=== PATIENT | female | born 1965 | race Caucasian/White ===

== ENCOUNTER 2020-01-06 02:57 | Outpatient (CLI) | payer MEDICARE, MEDICAID, SELFPAY ==
[2020-01-06 08:52] LABS: Abs Immature Grans 0.01 k/cumm (0.0-0.09); Absolute Basophil Count 0.04 k/cumm (0.0-0.2); Absolute Eosinophil Count 0.14 k/cumm (0.0-0.7); Absolute Lymphocyte Count 1.87 k/cumm (1.2-3.4); Absolute Monocyte Count 0.82 k/cumm (0.11-0.7); Absolute Neutrophil Count 2.51 k/cumm (1.2-6.7); Basophils % 0.7; Eosinophils % 2.6; HCT 34.3 % (36.0-46.0); HGB 11.6 g/dL (12.0-15.5); Immature Grans % 0.2 %; Lymphocytes % 34.7; Mean Corp. HGB Concentration 33.8 g/dL (32.0-36.0); Mean Corpuscular Hemoglobin 33.4 pg (27.0-33.0); Mean Corpuscular Volume 98.8 fL (80-95); Mean Platelet Volume 9.7 fL (8.0-11.0); Monocytes % 15.2; Neutrophils % 46.6; Platelet Count 133 x1000/uL (130-400); RBC 3.47 m/cumm (4.00-5.20); RBC Distribution Width 16.6 % (11.7-14.6); White Blood Cell Count 5.39 k/cumm (4.4-10.8)
[2020-01-06 09:13] LABS: ALT 58 U/L (14-59); AST 90 U/L (15-37); Albumin 2.2 g/dL (3.4-5.0); Alkaline Phosphatase 222 U/L (46-116); Anion Gap 4.7 mmol/L (3-11); BUN 16 mg/dL (7-18); Bilirubin, Total 3.5 mg/dL (0.2-1.0); CO2 32.3 mmol/L (21.0-32.0); CREATININE 1.21 mg/dL (0.55-1.02); Calcium 8.2 mg/dL (8.5-10.1); Chloride 103 mmol/L (98-107); Estimated GFR 46.73 (mL/min/1.73m2); Glucose 93 mg/dL (74-106); NT-proBNP 1638 pg/mL (<300); Sodium 140 mmol/L (136-145); Total Protein 6.6 g/dL (6.4-8.2)
== END 2020-01-06 03:17 ==
PROVIDERS: Visit Provider Nurse Practitioner Adult Health
DX: I50.22 Chronic systolic (congestive) heart failure (principal)
CPT/HCPCS: 36415; 80053; 83880; 85025

== ENCOUNTER 2020-04-18 06:33 | Emergency (ER) | payer MEDICARE, MEDICAID, SELFPAY ==
[2020-04-18 06:38] VITALS: BP 118/79; PULSE 72; RESP 22; TEMP 36.7; O2SAT 100
--- NOTE | 2020-04-18 06:40 | W.ED.GENAD ---
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 Primary Care Provider: Ling Pepe ED Provider: Victoriano Aleman Home Meds and New Rx's Prescriptions: Continued famotidine 40 mg tablet 40 mg PO DAILY RF: 0 spironolactone 100 mg tablet 100 mg PO DAILY RF: 0 ciprofloxacin HCl 500 mg tablet 500 mg PO BID RF: 0 furosemide 80 mg tablet 40 mg PO DAILY RF: 0 nitroglycerin 0.4 mg Tablet, Sublingual 0.4 mg SUBLINGUAL Q5M PRNRF: 0 Xifaxan 550 mg tablet 550 mg PO BID RF: 0 lactulose 20 gram/30 mL Solution 20 g PO TID RF: 0 metoprolol tartrate 37.5 mg Tablet 37.5 mg PO BID RF: 0 Discharge Instructions Instructions: Against Medical Advice (ED) Additional Instructions: You have elected to leave AGAINST MEDICAL ADVICE. We recommended admission and monitoring of your labs. As we discussed, you should have repeat labs taken tomorrow and we are working to obtain follow-up for you with your primary care physician on Monday. Return at any time for reconsideration of admission. Return if you have profuse bleeding, mental status changes, somnolence, fever, or any other acute concerns. Continue your prescribed medications Medical Decision Making <Emil Costa DO - Last Filed: 04/18/20 07:45> 54-year-old female with a past medical history of viral hepatitis C, cardiomyopathy, chronic ascites, chronic hepatitis, COVID-19 back in February, and recent E. coli bacteremia with DIC medically managed at [facility], she left AGAINST MEDICAL ADVICE stating I just could not sleep well there less than 24 hours ago. She was prescribed Cipro for home use. Patient presents today stating that she feels fine and feels much better however the [facility] told me I needed to come to the ER on Monday and Monday to have my blood check to make sure things were better. Currently the patient denies any fever, chills, abdominal pain, nausea, vomiting, diarrhea, chest pain, shortness of breath, numbness, tingling, weakness. She states that she has filled her Cipro and will be starting to take it as directed. She denies any other complaints at this time. Physical exam is unremarkable aside for scleral icterus, mild ascites. Vital signs are stable, patient denies fever or chills. Exam is otherwise unremarkable. We will get an IV, get basic labs including liver function, INR, CBC with differential. I did review [facility] records, and at this time I cannot find a formal discharge summary from the physician. There are multiple progress notes but no conclusive summary. We will reach out to [facility] to see exactly what they were specifically requesting on these blood checks. We also did check for lab orders here and none have been placed by outside facilities for the patient. 7:15 AM Still waiting on [facility] call back. We did contact [place] where she was initially admitted and then subsequently transferred. We checked for lab orders there and it does not appear that currently there are any for the patient. 7:43 AM Still pending [facility] call back. Patient's labs are starting to return, hemoglobin yesterday was 8.1, today it is 8.4, platelets yesterday were 53, today they are 61. INR has improved from 1.9 yesterday to 1.7 today, PT has improved from 22.4 yesterday to 17.2 today, and PTT has improved from 59 yesterday to 42 today. Patient states that. Demonstrating a gradual improvement for her hematology studies. Patient will be signed out to my colleague Dr. Victoriano Aleman for reassessment after discussion with [facility], however with the patient remaining asymptomatic at this time, feeling very well, having no fever or tachycardia, with evidence of slow but steady improvement of her hematology levels, I do feel that she may be a candidate for discharge. This will depend on the discussion with [facility] though. <Victoriano Aleman MD - Last Filed: 04/18/20 08:27> Received signout from Dr. Costa. I was able to talk to Dr. Marino from hospitalist medicine at [facility]. They agree with my recommendation for the patient to be admitted with close surveillance of her labs. Barring her willingness to do this, they recommend daily labs and close follow-up. The patient declines my recommendation of admission, stating she would like to leave AGAINST MEDICAL ADVICE. I discussed the risks and benefits including sudden with both she and her with the nurse at the bedside as witness. I feel she does have capacity to make this decision, particularly with her as witness and at her bedside. We have recommended daily labs and I have asked care management to obtain her a follow-up on Monday. I feel it is likely they will return tomorrow or sooner. We discussed signs of worsening condition prior to their leaving AGAINST MEDICAL ADVICE. HPI <Emil Ronda Costa, - Last Filed: 04/18/20 07:45> General Date/Time Provider Initiated Documentation: 04/18/20 06:35. HPI Narrative: 54-year-old female with a past medical history of viral hepatitis C, chronic ascites, chronic hepatitis, COVID-19 back in February, and recent E. coli bacteremia with DIC medically managed at [facility], she left AGAINST MEDICAL ADVICE stating I just could not sleep well there less than 24 hours ago. She was prescribed Cipro for home use. Patient presents today stating that she feels fine and feels much better however the [facility] told me I needed to come to the ER on Monday and Monday to have my blood check to make sure things were better. Currently the patient denies any fever, chills, abdominal pain, nausea, vomiting, diarrhea, chest pain, shortness of breath, numbness, tingling, weakness. She states that she has filled her Cipro and will be starting to take it as directed. She denies any other complaints at this time. Related Data Home Medications Medication Instructions Recorded Confirmed Xifaxan 550 mg PO BID 04/18/20 04/18/20 ciprofloxacin HCl 500 mg PO BID 04/18/20 04/18/20 famotidine 40 mg PO DAILY 04/18/20 04/18/20 furosemide 40 mg PO DAILY 04/18/20 04/18/20 lactulose 20 g PO TID 04/18/20 04/18/20 metoprolol tartrate 37.5 mg PO BID 04/18/20 04/18/20 nitroglycerin 0.4 mg SUBLINGUAL Q5M PRN 04/18/20 04/18/20 spironolactone 100 mg PO DAILY 04/18/20 04/18/20 Allergies Allergy/AdvReac Type Severity Reaction Status Date / Time amphetamine aspartate Allergy Severe Facial Unverified 04/18/20 06:40 [From Adderall] Swelling, Blisters, Tongue Swelling, Rash, amphetamine sulfate Allergy Severe Facial Unverified 04/18/20 06:40 [From Adderall] Swelling, Blisters, Tongue Swelling, Rash, dextroamphetamine saccharate Allergy Severe Facial Unverified 04/18/20 06:40 [From Adderall] Swelling, Blisters, Tongue Swelling, Rash, dextroamphetamine sulfate Allergy Severe Facial Unverified 04/18/20 06:40 [From Adderall] Swelling, Blisters, Tongue Swelling, Rash, Penicillins Allergy Intermediate Hives, Unverified 04/18/20 06:40 Rash, Tongue Swelling codeine AdvReac Mild Constipatio Unverified 04/18/20 06:40 n Review of Systems <Emil Costa DO - Last Filed: 04/18/20 07:45> All systems reviewed & are unremarkable except as noted in HPI and below PFSH <Emil Costa DO - Last Filed: 04/18/20 07:45> Medical History Anxiety Attention deficit hyperactivity disorder, combined type Cholestasis of Chronic hepatitis C Irritable colon Renal failure syndrome Surgical History section x2 Family History Mother Hypertensive disorder, systemic arterial Father Hypertensive disorder, systemic arterial Social History Smoking/Tobacco Use Status: Current every day Alcohol Intake: never Drug use: Never Substance use type: does not use Do you feel safe at home: Yes Exam <Emil Costa DO - Last Filed: 04/18/20 07:45> Narrative Exam Narrative: 1.Const: Well-nourished, Well-developed, appearing stated age 2.Eyes: PERRL, no conjunctival injection, and symmetrical lids. Notable scleral icterus 3.ENT: Atraumatic external nose and ears. Moist MM. Neck: Symmetric, trachea midline, No thyromegaly. 4.CVS: +S1/S2, No murmurs or gallops. Peripheral pulses 2+ and equal in all extremities. Brisk capillary refill in all extremities. 5.RESP: Unlabored respiratory effort. Clear to auscultation bilaterally. No wheezes rales or rhonchi 6.GI: Soft, Nontender], No hepatosplenomegaly. No guarding or rebound. Notable ascites, nontender. 7.MSK: Normocephalic/Atraumatic, Extremities w/o deformity or ttp No cyanosis or clubbing, Normal movement of all extremities. No asterixis 8.Skin: Warm, Dry. No rashes or lesions. 9.Neuro: hand stonecutter II-XII grossly intact. Sensation grossly intact, no focal neurologic deficits. 10.Psych: (AAO) x3. Appropriate mood and affect Sign Out <Emil Costa DO - Last Filed: 04/18/20 07:45> Sign Out Data: Sign Out Comment: Left AMA from [facility] yesterday, DIC, E. coli bacteremia, on Cipro. Sent in today at [facility] recommendation for blood studies. CBC she seems to demonstrate improvement. Reevaluate after discussion with [facility] medicine team. Last updated by Emil Costa DO at 04/18/20 07:45
[2020-04-18 07:13] VITALS: RESP 18
[2020-04-18 07:13] LABS: Abs Immature Grans 0.05 10^3/uL (0.0-0.06); Absolute Basophil Count 0.08 10^3/uL (0.0-0.2); Absolute Eosinophil Count 0.32 10^3/uL (0.0-0.7); Absolute Lymphocyte Count 1.02 10^3/uL (1.2-3.4); Absolute Monocyte Count 1.14 10^3/uL (0.1-0.8); Absolute Neutrophil Count 3.48 10^3/uL (1.2-6.7); Basophils % 1.3; Eosinophils % 5.3; HCT 25.8 % (36.0-46.0); HGB 8.4 g/dL (11.2-15.7); Immature Grans % 0.8; Lymphocytes % 16.7; MCH 32.6 pg (27.0-33.0); MCHC 32.6 % (32.0-36.0); MPV 10.7 fL (8.0-11.0); Monocytes % 18.7; Neutrophils % 57.2; RBC 2.58 10^6/uL (3.93-5.22); RDW 20.4 % (11.7-14.6); RDW-SD 70.3 fL; WBC 6.09 10^3/uL (4.4-10.8)
[2020-04-18 07:21] VITALS: BP 93/61; PULSE 66; PULSE 68; RESP 15; O2SAT 100
[2020-04-18 07:22] VITALS: PULSE 82; RESP 13; O2SAT 100
[2020-04-18 07:24] VITALS: BP 98/66; PULSE 68; PULSE 71; RESP 11; O2SAT 100
[2020-04-18 07:29] LABS: INR 1.7 (0.9-1.1); PTT Activated 42.3 sec (21.0-31.4); Prothrombin Time 17.2 sec (9.3-11.0)
[2020-04-18 07:32] LABS: Ammonia 10 umol/L (11-32)
[2020-04-18 07:33] LABS: Anisocytosis 2+; Diff Comment PLT Morph Reviewed; Macrocytosis 2+; Platelet Count 61 10^3/uL (130-400); Poikilocytes 1+
[2020-04-18 07:42] LABS: ALT 22 U/L (14-59); AST 38 U/L (15-37); Alkaline Phosphatase 98 U/L (46-116); Anion Gap 7.7 mmol/L (3-11); BUN 18 mg/dL (7-18); Bilirubin, Total 6.1 mg/dL (0.2-1.0); CO2 26.3 mmol/L (21.0-32.0); Calcium 8.6 mg/dL (8.5-10.1); Chloride 103 mmol/L (98-107); Estimated GFR 39.49 (mL/min/1.73m2); Glucose 91 mg/dL (74-106); Potassium 3.5 mmol/L (3.5-5.1); Sodium 137 mmol/L (136-145); Total Protein 6.1 g/dL (6.4-8.2)
[2020-04-18 08:35] VITALS: BP 112/70; PULSE 71; RESP 18; O2SAT 94
--- NOTE | 2020-04-18 09:40 | NUR.NOTE ---
Referral to Care Management box.Nursing Note:
[2020-04-18 12:06] LABS: Fibrinogen (Stat) (Littleton) 181 mg/dL (208-434)
== END 2020-04-18 08:35 | disposition left against medical advice (07) ==
PROVIDERS: Student in an Organized Health Care Education/Training Program; Emergency Provider Emergency Medicine; PCP Nurse Practitioner Family
DX: K71.51 Toxic liver disease with chronic active hepatitis with ascites (principal); R78.81 Bacteremia; D65 Disseminated intravascular coagulation [defibrination syndrome]; Z53.29 Procedure and treatment not carried out because of patient's decision for other reasons
CPT/HCPCS: 36415; 80053; 85384; 99283; 82140; 85025; 85610; 85730

== ENCOUNTER 2020-04-19 07:29 | Emergency (ER) | payer MEDICARE, MEDICAID, SELFPAY ==
--- NOTE | 2020-04-19 08:12 | ED.GENADUL_ITS ---
Discharge Plan Disposition Patient Disposition: AGAINST MEDICAL ADVICE Condition: Serious Discharge Details Chief Complaint: Recheck Clinical Impression: Anemia, Left against medical advice Primary Care Provider: Ling Pepe ED Provider: Victoriano Aleman Home Meds and New Rx's Prescriptions: Continued famotidine 40 mg tablet 40 mg PO DAILY RF: 0 spironolactone 100 mg tablet 100 mg PO DAILY RF: 0 ciprofloxacin HCl 500 mg tablet 500 mg PO BID RF: 0 furosemide 80 mg tablet 40 mg PO DAILY RF: 0 nitroglycerin 0.4 mg Tablet, Sublingual 0.4 mg SUBLINGUAL Q5M PRNRF: 0 Xifaxan 550 mg tablet 550 mg PO BID RF: 0 lactulose 20 gram/30 mL Solution 20 g PO TID RF: 0 metoprolol tartrate 37.5 mg Tablet 37.5 mg PO BID RF: 0 Discharge Instructions Instructions: Against Medical Advice (ED), Anemia (ED) Additional Instructions: You have elected to decline admission again. As we discussed, our care management team is working to get you an appointment in primary care for tomorrow and we would recommend for you to have repeat labs again tomorrow. Continue the antibiotic ciprofloxacin as prescribed. Return if you develop a fever, bleeding, confusion, bloody stool, or any other acute concerns. Medical Decision Making 54-year-old female known to me from yesterday's visit with Dr. Costa, from whom I assumed care. The patient has had an E. coli bacteremia complicated by DIC for which she was admitted to [facility], left AMA and then presented to the emergency department yesterday. Her laboratories yesterday were improving, we are having care management work on a follow-up for her in primary care tomorrow. Yesterday she left AGAINST MEDICAL ADVICE following her lab draw. She does appear somewhat improved to me. She is otherwise well, her exam shows her to be slightly less icteric in my opinion from yesterday. Labs reviewed and discussed with Dr. Ortiz from [facility] hematology. Patient was discharged with a hemoglobin of 8.1 and a fibrinogen of 190. Labs are arguably the same over the past few days. Fibrinogen is pending from today. He agrees with recommendation to admit with continued surveillance of labs, but that transfusion not indicated at this time. I again recommended that Ms. De Leon be admitted for further observation and management. She again has declined. I do feel she has capacity to make this decision. We are actively working with care management to obtain a follow-up for tomorrow and her primary care clinic, otherwise she is likely to return for repeat laboratories despite again leaving AGAINST MEDICAL ADVICE today. Lab Data Lab results reviewed: Yes I reviewed the patient's lab results. Labs: Laboratory Results - last 24 hr 04/19/20 04/19/20 04/19/20 08:29 08:29 08:29 WBC 5.02 RBC 2.43 L Hgb 7.9 L Hct 23.9 L MCV 98.4 H MCH 32.5 MCHC 33.1 RDW 20.0 H Plt Count 60 L MPV 10.5 Immature Gran % 1.0 Neutrophils % 51.2 Lymphocytes % 20.9 Monocytes % 19.3 Eosinophils % 6.6 Basophils % 1.0 Absolute Neutrophils 2.57 Absolute Lymphocytes 1.05 L Absolute Monocytes 0.97 H Absolute Eosinophils 0.33 Absolute Basophils 0.05 RBC Morphology See below Polychromasia Present Poikilocytosis 1+ Anisocytosis 2+ PT INR APTT D-Dimer Sodium Potassium Chloride Carbon Dioxide Anion Gap BUN Creatinine Estimated GFR/1.73 m2 Glucose Calcium Total Bilirubin AST ALT Alkaline Phosphatase Ammonia 13 Total Protein Albumin Lipase 88 04/19/20 04/19/20 08:29 08:29 WBC RBC Hgb Hct MCV MCH MCHC RDW Plt Count MPV Immature Gran % Neutrophils % Lymphocytes % Monocytes % Eosinophils % Basophils % Absolute Neutrophils Absolute Lymphocytes Absolute Monocytes Absolute Eosinophils Absolute Basophils RBC Morphology Polychromasia Poikilocytosis Anisocytosis PT 18.4 H INR 1.9 H APTT 43.2 H D-Dimer 5054 H Sodium 135 L Potassium 3.6 Chloride 103 Carbon Dioxide 23.4 Anion Gap 8.6 BUN 19 H Creatinine 1.40 H Estimated GFR/1.73 m2 39.49 Glucose 89 Calcium 8.2 L Total Bilirubin 5.1 H AST 37 ALT 22 Alkaline Phosphatase 120 H Ammonia Total Protein 5.7 L Albumin 2.4 L Lipase HPI General Mode of arrival: ambulatory . Date/Time Provider Initiated Documentation: 04/19/20 07:55 . Limitations to Documentation: no limitations . Information obtained by: patient . History of Present Illness 54 year old F presents to the emergency department with the chief complaint of Returns for lab check, described as similar to prior episodes, Patient reports no radiation. Patient started experiencing this day(s) and it has been constant. No relieving factors improve symptom(s), No exacerbating factors reported . Patient did receive the following treatments prior to arrival, none Related Data Home Medications Medication Instructions Recorded Confirmed Xifaxan 550 mg PO BID 04/18/20 04/18/20 ciprofloxacin HCl 500 mg PO BID 04/18/20 04/18/20 famotidine 40 mg PO DAILY 04/18/20 04/18/20 furosemide 40 mg PO DAILY 04/18/20 04/18/20 lactulose 20 g PO TID 04/18/20 04/18/20 metoprolol tartrate 37.5 mg PO BID 04/18/20 04/18/20 nitroglycerin 0.4 mg SUBLINGUAL Q5M PRN 04/18/20 04/18/20 spironolactone 100 mg PO DAILY 04/18/20 04/18/20 Allergies Allergy/AdvReac Type Severity Reaction Status Date / Time amphetamine aspartate Allergy Severe Facial Unverified 04/19/20 08:38 [From Adderall] Swelling, Blisters, Tongue Swelling, Rash, amphetamine sulfate Allergy Severe Facial Unverified 04/19/20 08:38 [From Adderall] Swelling, Blisters, Tongue Swelling, Rash, dextroamphetamine saccharate Allergy Severe Facial Unverified 04/19/20 08:38 [From Adderall] Swelling, Blisters, Tongue Swelling, Rash, dextroamphetamine sulfate Allergy Severe Facial Unverified 04/19/20 08:38 [From Adderall] Swelling, Blisters, Tongue Swelling, Rash, Penicillins Allergy Intermediate Hives, Unverified 04/19/20 08:38 Rash, Tongue Swelling codeine AdvReac Mild Constipatio Unverified 04/19/20 08:38 n General JOE: 4 Review of Systems Narrative: Denies fever, chills, confusion, headache, falls. No nausea, vomiting, chills. [facility] Medical History Anxiety Attention deficit hyperactivity disorder, combined type Cholestasis of Chronic hepatitis C Irritable colon Renal failure syndrome Surgical History section x2 Family History Mother Hypertensive disorder, systemic arterial Father Hypertensive disorder, systemic arterial Social History Smoking/Tobacco Use Status: Current every day Alcohol Intake: never Drug use: Never Substance use type: does not use Do you feel safe at home: Yes Exam Narrative Exam Narrative: GEN: awake, alert, oriented 3. Pleasant, well groomed, interactive. HEAD: Normocephalic, atraumatic ENT: Mucous membranes moist, oropharynx unremarkable, External ear exam unremarkable EYES: PERRL, EOMI, slightly icteric NECK: Full ROM, no CLAUDETTE, no menigismus CHEST/RESP: Nontender, clear to auscultation bilateral, no wheeze/rhonchi/rales CARDIOVASCULAR: RRR, no murmur, rub vargas. 2+ Rad pulse bilateral ABDOMEN: Soft, nontender, no mass. +Bowel sounds EXT: Full ROM, no edema, skin jaundiced, numerous areas of bruising/ecchymosis on extremities. Neuro: Grossly normal neurologic exam, conversant, interactive. Psych: Speech fluent, thoughts congruent, affect normal
--- NOTE | 2020-04-19 08:22 | NUR.NOTE ---
Nursing Note: Blood Draw attempted unsuccessful.
[2020-04-19 08:39] LABS: Abs Immature Grans 0.05 10^3/uL (0.0-0.06); Absolute Basophil Count 0.05 10^3/uL (0.0-0.2); Absolute Eosinophil Count 0.33 10^3/uL (0.0-0.7); Absolute Lymphocyte Count 1.05 10^3/uL (1.2-3.4); Absolute Monocyte Count 0.97 10^3/uL (0.1-0.8); Absolute Neutrophil Count 2.57 10^3/uL (1.2-6.7); Eosinophils % 6.6; HCT 23.9 % (36.0-46.0); HGB 7.9 g/dL (11.2-15.7); Lymphocytes % 20.9; MCH 32.5 pg (27.0-33.0); MCHC 33.1 % (32.0-36.0); MCV 98.4 fL (80-95); MPV 10.5 fL (8.0-11.0); Monocytes % 19.3; Neutrophils % 51.2; RBC 2.43 10^6/uL (3.93-5.22); RDW-SD 67.7 fL; WBC 5.02 10^3/uL (4.4-10.8)
[2020-04-19 08:40] VITALS: BP 119/71; PULSE 85; RESP 20; TEMP 36.5; O2SAT 99
[2020-04-19 08:51] LABS: Lipase 88 U/L (73-393)
[2020-04-19 08:53] LABS: ALT 22 U/L (14-59); AST 37 U/L (15-37); Albumin 2.4 g/dL (3.4-5.0); Alkaline Phosphatase 120 U/L (46-116); Anion Gap 8.6 mmol/L (3-11); BUN 19 mg/dL (7-18); Bilirubin, Total 5.1 mg/dL (0.2-1.0); CO2 23.4 mmol/L (21.0-32.0); Calcium 8.2 mg/dL (8.5-10.1); Chloride 103 mmol/L (98-107); Estimated GFR 39.49 (mL/min/1.73m2); Glucose 89 mg/dL (74-106); Potassium 3.6 mmol/L (3.5-5.1); Sodium 135 mmol/L (136-145); Total Protein 5.7 g/dL (6.4-8.2)
[2020-04-19 08:54] LABS: INR 1.9 (0.9-1.1); PTT Activated 43.2 sec (21.0-31.4); Prothrombin Time 18.4 sec (9.3-11.0)
[2020-04-19 08:55] LABS: Ammonia 13 umol/L (11-32)
[2020-04-19 09:02] LABS: Anisocytosis 2+; Diff Comment PLT Morph Reviewed; Platelet Count 60 10^3/uL (130-400)
[2020-04-19 09:03] LABS: Poikilocytes 1+; Polychromasia Present
[2020-04-19 09:18] LABS: D-Dimer 5054 ng/mlFEU (<500)
[2020-04-19 09:32] VITALS: BP 109/69; PULSE 80; RESP 20; O2SAT 97
[2020-04-19 09:53] VITALS: BP 104/64; PULSE 74; RESP 20; TEMP 36.5; O2SAT 98
[2020-04-19 11:48] LABS: Fibrinogen (Stat) (Littleton) 146 mg/dL (208-434)
== END 2020-04-19 10:04 | disposition left against medical advice (07) ==
PROVIDERS: Emergency Provider Emergency Medicine; PCP Nurse Practitioner Family
DX: D64.9 Anemia, unspecified (principal); Z53.29 Procedure and treatment not carried out because of patient's decision for other reasons
CPT/HCPCS: 36415; 80053; 83690; 85384; 99282; 82140; 85025; 85379; 85610; 85730; 99283

== ENCOUNTER 2020-05-25 13:49 | Outpatient (REF) | payer MEDICARE, MEDICAID, SELFPAY ==
[2020-05-25 14:16] LABS: Anion Gap 5.7 mmol/L (3-11); BUN 33 mg/dL (7-18); CO2 27.3 mmol/L (21.0-32.0); CREATININE 2.04 mg/dL (0.55-1.02); Calcium 8.1 mg/dL (8.5-10.1); Chloride 102 mmol/L (98-107); Estimated GFR 25.57 (mL/min/1.73m2); Glucose 96 mg/dL (74-106); Potassium 3.7 mmol/L (3.5-5.1); Sodium 135 mmol/L (136-145)
== END 2020-05-25 14:09 ==
LOC: LBN 13:49
PROVIDERS: PCP Nurse Practitioner Family; Visit Provider Internal Medicine Gastroenterology
DX: K70.31 Alcoholic cirrhosis of liver with ascites (principal)
CPT/HCPCS: 80048

== ENCOUNTER 2020-06-09 16:51 | Emergency (ER) | payer MEDICARE, MEDICAID, SELFPAY ==
--- NOTE | 2020-06-09 16:45 | RT.EKG_ITS ---
APPROVED REPORT Exam: Resting ECG Patient Location: E HR:96 bpm ECG Measurements Heart Rate 96 AXIS RI [id number] P [id number] QRSd 89 QRS 79 QT 360 T [id number] QTc 456 Conclusion Atrial fibrillation...V-rate 73- 97, irreg A-activity Paired ventricular premature complexes...sequence of 2 V complexes Low voltage, extremity and precordial leads...extremity<0.5mV, precordial<1.0mV Nonspecific T abnormalities, lateral leads...T <-0.10mV, I aVL V5 V6. PVCs. No STEMI.
--- NOTE | 2020-06-09 16:52 | W.ED.GENAD ---
Discharge Plan Disposition Patient Disposition: AGAINST MEDICAL ADVICE Condition: Serious Discharge Details Clinical Impression: Pleural effusion, Shortness of breath, Hypomagnesemia, Creatinine elevation, Elevated bilirubin, Transaminitis, Elevated INR, Anemia Primary Care Provider: Ling Pepe ED Provider: Shelli Cornell Home Meds and New Rx's Prescriptions: Continued famotidine 40 mg tablet 40 mg PO DAILY RF: 0 spironolactone 100 mg tablet 100 mg PO DAILY RF: 0 furosemide 80 mg tablet 40 mg PO DAILY RF: 0 nitroglycerin 0.4 mg Tablet, Sublingual 0.4 mg SUBLINGUAL Q5M PRNRF: 0 Xifaxan 550 mg tablet 550 mg PO BID RF: 0 lactulose 20 gram/30 mL Solution 20 g PO TID RF: 0 metoprolol tartrate 37.5 mg Tablet 37.5 mg PO BID RF: 0 Discharge Instructions Instructions: Pleural Effusion (ED), Dyspnea (ED) Additional Instructions: You are choosing to leave today AGAINST MEDICAL ADVICE. I am concerned for your breathing as you do have a large amount of fluid around your right lung. I have recommended that you stay and have this drained. You have also been offered to be transferred to [facility] which you have declined. I am concerned that by not continuing to receive evaluation and treatment you are at risk for further complications including but not limited to . You may return at anytime for continued evaluation and treatment. Please follow-up closely with your specialist as well as your primary care physician. Again, you may return anytime for further evaluation and treatment and I urge you to return if you worsen in any way. Referrals: Ling Pepe [Primary Care Provider] - Discharge Data Discharge Date/Time-TO BE ENTERED AT DEPARTURE: 06/09/20 19:00 Medical Decision Making Patient presents today with chief complaint of shortness of breath. Patient does have a complex past medical history and has sought medical treatment multitude of times this summer. Please see HPI. Patient recently left AMA from [facility]. She reports that she has had increased SOB. Her abdomen is notably distended and has + fluid wave. However, she states that she just under went paracentesis and feels that this is not the cause. She also reports pain at the drainage site. She denies new abdominal pain. No fevers/chills. Denies nausea or vomiting. States that she did hae some persistent drainage from the site and then had localized skin irritation to the covering. On exam, patient appears SOB. She is unable to speak in complete sentences. She has scattered wheezing, diminished breath sounds. Her abdomen is distended but nontender. Fluid wave noted. No evidence of infection at paracentesis site. Minimal lower extremity edema. She is jaundiced, she states that this is baseline if not improving. Patient is wanting limited medical issues addressed. She has a plan for continued care and seems very set on how she wants things addressed. Will obtai cxr, ecg, labs. Ptient and I discussed the fluid in her ascites but she does not feel that this is of concern at this time. Labs reviewed, patient has worsening kidney dysfunction with continued elevation of her creatinine at 2.7. Anemia is stable, platelets are stable. INR elevated at 1.8. Elevated bili, this is normal for ht epatient. CXR reviewed by myself. She has right sided pleural effusion. She knows about this and does not want this addressed. I advised that the growing effusion is likely the source of her SOB. She was offered thoracentesis which she refuses. She states that she has discussed this historically and that she was advised they are too dangerous. We discussed that this is likely to worsen and she continues to refuse. Patient was evaluated by respiratory therapy. While she is wheezing, we are hestitant to give breathing treatments that may open things up as this may worsen her SOB from effusion. Patient is very closed off to any discussion about her current condition. She is in denial. I brought in the recent notes from her specialists and she states, I dont want to hear that. She typically receives care at [facility], I offered to inquire about transfer to their faciliyt and she declined. She has things to do tonight and wants to leave. I discussed, at length, my concerns about her current condition and high risk of continued deteriation. She is requesting discharge. Patient will leave AMA. She is aware she may return at any time. She is of sound mind, appears appropriate and making informed decision. HPI General Mode of arrival: wheelchair. Date/Time Provider Initiated Documentation: 06/09/20 16:52. Limitations to Documentation: no limitations. Information obtained by: patient, RN notes reviewed and old records reviewed. HPI Narrative: Patient is a 55 year old female with PMH significant for CHF, anxiety, chronic hepatitis C, renal failure, depression, IBS, ascites, encephalopathy, cirrhosis, hyponatremia, atrial fibrillation, dyslipidemia. Patient was recently admitted for anasarca, ascites and EARNEST. Patient has left AMA multiple times this year from [facility]. Sounds like she is greatly declined since January. She has had paracentesis x2 this month each time 5000 mL fluid was drained. Patient reports recently left [facility] on 05/19/2020. During this time, she diffuse anasarca and ascites secondary to decompensated cirrhosis, EARNEST and concern for acute systolic heart failure. He was unclear on chart review patient's cardiorenal versus hepatorenal syndrome. Patient does have chronic cirrhosis associated with hepatitis C. When she recently saw her bending roll operator, it was decided to begin the patient on Epclusa once daily. She is not started this as of yet. Patient reports that she is going to start this in 1 week. Per gastroenterology, is unclear if this will be of benefit given the advanced liver disease but are hoping that they will be some degree of improvement. Patient had multiple changes in her diuretic regimen over the past month. Currently, she is on spironolactone 50 mg and furosemide LA 80 mg. Patient last had paracentesis on 06/04/2020. She reports initially she was doing quite well after paracentesis but began developing pain at the drainage site 2 days ago. Feels that there is swelling and pain to this area. However, her primary concern today is shortness of breath. She reports a recent days of shortness of breath has continued to increase. This has been a problem while admitted recently. This was attributed to her anasarca as well as mitral regurgitation and anemia. At the time of discharge, her hemoglobin was 7.1. Etiology of her anemia was unclear and patient was supposed to have an EGD but AMA before this was completed. Patient is also noted to have a right pleural effusion that be secondary to ascites is a hepato-hydrothorax. At the time of admission, her dyspnea did improve after paracentesis. Of note, patient is also admitted this summer for E. coli bacteremia as well as DIC. Related Data Home Medications Medication Instructions Recorded Confirmed Xifaxan 550 mg PO BID 04/18/20 06/11/20 famotidine 40 mg PO DAILY 04/18/20 06/11/20 furosemide 40 mg PO DAILY 04/18/20 06/11/20 lactulose 20 g PO TID 04/18/20 06/11/20 metoprolol tartrate 37.5 mg PO BID 04/18/20 06/11/20 nitroglycerin 0.4 mg SUBLINGUAL Q5M PRN 04/18/20 06/11/20 spironolactone 100 mg PO DAILY 04/18/20 06/11/20 Allergies Allergy/AdvReac Type Severity Reaction Status Date / Time amphetamine aspartate Allergy Severe Facial Unverified 04/19/20 08:38 [From Adderall] Swelling, Blisters, Tongue Swelling, Rash, amphetamine sulfate Allergy Severe Facial Unverified 04/19/20 08:38 [From Adderall] Swelling, Blisters, Tongue Swelling, Rash, dextroamphetamine saccharate Allergy Severe Facial Unverified 04/19/20 08:38 [From Adderall] Swelling, Blisters, Tongue Swelling, Rash, dextroamphetamine sulfate Allergy Severe Facial Unverified 04/19/20 08:38 [From Adderall] Swelling, Blisters, Tongue Swelling, Rash, Penicillins Allergy Intermediate Hives, Unverified 04/19/20 08:38 Rash, Tongue Swelling codeine AdvReac Mild Constipatio Unverified 04/19/20 08:38 n General JOE: 4 Review of Systems Constitutional Constitutional: Reports as per HPI, Denies chills, Denies fatigue, Denies fever(s) and Denies headache(s) ENT Ears, Nose, Mouth, and Throat: Denies headache(s) Cardiovascular Cardiovascular: Reports as per HPI, Denies chest pain, Denies chest pain at rest, Denies chest pain with activity, Reports dyspnea and Reports dyspnea on exertion Respiratory Respiratory: Reports as per HPI, Denies cough, Denies hemoptysis, Reports dyspnea, Reports dyspnea on exertion and Reports wheezing Gastrointestinal Gastrointestinal: Reports as per HPI Musculoskeletal Musculoskeletal: Reports as per HPI and Denies back pain Integumentary/Breasts Skin/Breast: Reports as per HPI and Denies rash Neurologic Neurologic: Reports as per HPI and Denies headache(s) Endocrine Endocrine: Denies fatigue Allergic/Immunologic Allergic/Immunologic: Reports wheezing [facility] Medical History Anxiety Attention deficit hyperactivity disorder, combined type Cholestasis of Chronic hepatitis C Irritable colon Renal failure syndrome Surgical History section x2 Family History Mother Hypertensive disorder, systemic arterial Father Hypertensive disorder, systemic arterial Social History Smoking/Tobacco Use Status: Former Tobacco Use Alcohol Intake: former Drug use: Never Substance use type: does not use Do you feel safe at home: Yes Exam Const General: cooperative, comfortable, no acute distress, well developed and ill appearing chronically Nutritional Appearance: well nourished and obese Orientation: alert and awake HENMT Head: normal to inspection Mouth: abnormal oral mucosae (juandiced intraorally) Eyes General: appearance abnormal, both eyes (jaundiced) Resp Effort & Inspection: normal respiratory effort, not able to speak in complete sentences and no respiratory distress Auscultation: diminished lung sounds on the right in the lower lung [place], no rales, no rhonchi and wheezes (scattered, worse in RUL and left lung) Cardio Rate: regular rate Rhythm: regular rhythm Heart Sounds: S1 normal and S2 normal GI Inspection: distended and obesity Palpation: no hepatosplenomegaly (unable to palpate secondary to distension), no guarding, no masses, no pulsatile masses and nontender Percussion: fluid wave Back/Spine/Pelvis Back: no CVA tenderness Skin Trauma: puncture (insertion site for paracentesis without erythema, warmth, drainage, swellin) Neuro General: patient alert and patient awake Cognition: normal cognition Speech: speech normal Gait: normal gait Psych Appearance: grossly normal and well kempt Mental Status: mental status grossly normal Speech and Movement: speech and movement normal
[2020-06-09 16:57] VITALS: BP 124/91; PULSE 65; RESP 24; TEMP 37.1; O2SAT 96
--- NOTE | 2020-06-09 17:30 | DI.RAD_ITS ---
EXAM: 2D digital imaging was performed. CLINICAL HISTORY: . COMPARISON: CR ABDOMEN 2 VIEW FLAT, UPRIGHT from 04/22/2013 TECHNIQUE: Supine and uprightSupine and Lateral views of the abdomen was performed. FINDINGS: LUNG BASES: There is a right pleural effusion noted. Please refer to this x-ray of the chest for com plete details. BOWEL GAS PATTERN: Nondistended. FREE AIR: None. CALCIFICATIONS: No radiopaque calcifications. OSSEOUS STRUCTURES: S-type thoracolumbar scoliosis. OTHER FINDINGS: There is increased opacity of the abdomen suspicious for abdominal ascites. IMPRESSION: 1. Right pleural effusion. 2. Increased opacity of the abdomen suspicious for abdominal ascites. Abdominal ultrasound may be co nsidered for further evaluation. DATA REPOSITORY: RADIATION DOSE DELIVERED:
--- NOTE | 2020-06-09 17:30 | DI.RAD_ITS ---
EXAM: XR CHEST 2 View TECHNIQUE: 2D digital imaging was performed. COMPARISON: CR CHEST 2 VIEWS PA,LAT from 04/22/2013 CR ABDOMEN 2 VIEW FLAT, UPRIGHT from 04/22/2013 FINDINGS: MEDIASTINUM: Normal. HEART: Normal. PULMONARY VASCULATURE: Normal. LUNGS: There is a right perihilar infiltrate which may represent atelectasis. Pneumonia cannot be ex cluded. PLEURAL SPACE: There is a large pleural effusion occupying half of the right hemithorax. No left ple ural effusion is seen. No pneumothorax. BONE:There is an S-type thoracolumbar scoliosis. OTHER FINDINGS:Normal. IMPRESSION: Large right pleural effusion occupying half of the right hemithorax. Right perihilar infiltrate whic h may reflect atelectasis. Pneumonia cannot be excluded. DATA REPOSITORY: RADIATION DOSE DELIVERED:
[2020-06-09 18:00] VITALS: BP 99/66; PULSE 116; RESP 22; O2SAT 97
[2020-06-09 18:01] LABS: ALT 30 U/L (14-59); AST 41 U/L (15-37); Albumin 3.1 g/dL (3.4-5.0); Alkaline Phosphatase 169 U/L (46-116); Anion Gap 8.8 mmol/L (3-11); BUN 41 mg/dL (7-18); Bilirubin, Total 5.6 mg/dL (0.2-1.0); CO2 25.2 mmol/L (21.0-32.0); CREATININE 2.76 mg/dL (0.55-1.02); Calcium 8.8 mg/dL (8.5-10.1); Chloride 105 mmol/L (98-107); Estimated GFR 17.97 (mL/min/1.73m2); Glucose 93 mg/dL (74-106); Magnesium 1.5 mg/dL (1.8-2.4); Potassium 3.4 mmol/L (3.5-5.1); Sodium 139 mmol/L (136-145); Total Protein 6.7 g/dL (6.4-8.2)
[2020-06-09 18:02] LABS: Troponin I < 0.05 ng/mL (<0.06)
[2020-06-09 18:03] LABS: Bilirubin Negative (Negative); Blood Negative (Negative); Clarity Clear (Clear); Glucose Negative (Negative); Ketones Negative (Negative); Leukocyte Esterase Negative (Negative); Nitrite Negative (Negative); Urobilinogen 0.2 EU/dL (Up TO 0.2); pH 5.5 (5-8)
[2020-06-09 18:04] LABS: Abs Immature Grans 0.08 10^3/uL (0.0-0.06); Absolute Basophil Count 0.03 10^3/uL (0.0-0.2); Absolute Eosinophil Count 0.19 10^3/uL (0.0-0.7); Absolute Lymphocyte Count 1.48 10^3/uL (1.2-3.4); Absolute Monocyte Count 1.09 10^3/uL (0.1-0.8); Absolute Neutrophil Count 3.53 10^3/uL (1.2-6.7); Basophils % 0.5; HCT 27.5 % (36.0-46.0); HGB 8.5 g/dL (11.2-15.7); Immature Grans % 1.3; Lymphocytes % 23.1; MCH 33.5 pg (27.0-33.0); MCHC 30.9 % (32.0-36.0); MCV 108.3 fL (80-95); MPV 9.8 fL (8.0-11.0); Neutrophils % 55.1; Nucleated RBC 0 %; Platelet Count 120 10^3/uL (130-400); RBC 2.54 10^6/uL (3.93-5.22); RDW 19.2 % (11.7-14.6); RDW-SD 75.3 fL
[2020-06-09 18:24] LABS: INR 1.8 (0.9-1.1); PTT Activated 37.5 sec (21.0-31.4)
[2020-06-09 18:28] LABS: Anisocytosis 2+; Diff Comment RBC Morph Reviewed; Macrocytosis 3+
[2020-06-09 18:29] LABS: Poikilocytes 2+
[2020-06-09 18:36] LABS: Prothrombin Time 17.6 sec (9.3-11.0)
[2020-06-09 18:45] VITALS: BP 103/52; PULSE 99; RESP 20; O2SAT 97
--- NOTE | 2020-06-09 18:50 | DI.VRAD_ITS ---
PROCEDURE INFORMATION: Exam: XR Chest, 2 Views Exam date and time: 06/09/2020 6:09 PM Age: 55 years old Clinical indication: Other: Recent thoracentesis; Prior surgery; Surgery date: 1-6 months TECHNIQUE: Imaging protocol: XR of the chest Views: 2 views. COMPARISON: No relevant prior studies available. FINDINGS: Lungs: Pulmonary vasculature grossly normal. Right perihilar airspace disease is probably compressive atelectasis secondary to effusion although elements of pulmonary infection/pneumonia are not fully excluded in the right lower lobe or right perihilar region. Pleural space: Moderate right-sided pleural effusion. No pneumothorax. Heart/Mediastinum: Heart size normal. No tracheal/mediastinal shift. Bones/joints: No acute osseous abnormalities are identified. Mild-moderate rightward convexity thoracic scoliosis. IMPRESSION: 1. Moderate right basilar pleural effusion with adjacent right perihilar airspace disease which is probably compressive atelectasis. 2. No pneumothorax. 3. Thoracic dextroscoliosis. PROCEDURE INFORMATION: Exam: XR Abdomen, 2 Views Exam date and time: 06/09/2020 6:09 PM Age: 55 years old Clinical indication: Other: Recent thoracentesis; Prior surgery; Surgery date: 1-6 months TECHNIQUE: Imaging protocol: XR of the abdomen. Views: 2 Views. COMPARISON: No relevant prior studies available. FINDINGS: Gastrointestinal tract: Nonobstructive bowel gas pattern. No evidence of pneumatosis or portal gas. Intraperitoneal space: No free air is evident. Organs: 12 mm possible gallstone projecting over the right upper quadrant. No evidence of organomegaly. Bones/joints: No acute osseous abnormalities. Moderate leftward convexity lumbar scoliotic curvature. Soft tissues: No gross soft tissue masses. IMPRESSION: 1. No acute intra-abdominal/intrapelvic process is identified. No evidence to suggest bowel obstruction or perforation. 2. 12 mm possible gallstone projecting in the right upper quadrant. 3. Scoliosis. Dictated and Authenticated by: Aniket Godinez MD. Ordering:MANAS Marques MD
[2020-06-09 18:54] LABS: NT-proBNP 4129 pg/mL (<300)
== END 2020-06-09 19:00 | disposition left against medical advice (07) ==
PROVIDERS: Emergency Provider Physician Assistant; PCP Nurse Practitioner Family
DX: J90 Pleural effusion, not elsewhere classified (principal); R06.02 Shortness of breath; E83.42 Hypomagnesemia; N18.4 Chronic kidney disease, stage 4 (severe); R79.1 Abnormal coagulation profile; R94.4 Abnormal results of kidney function studies; R74.0 Nonspecific elevation of levels of transaminase and lactic acid dehydrogenase [LDH]; R79.89 Other specified abnormal findings of blood chemistry; R17 Unspecified jaundice; D64.9 Anemia, unspecified; Z53.29 Procedure and treatment not carried out because of patient's decision for other reasons
CPT/HCPCS: 36415; 80053; 93005; 99285; 71046; 74019; 81003; 83735; 83880; 84484; 85025; 85610; 85730; 93010

== ENCOUNTER 2020-06-11 11:09 | Emergency (ER) | payer MEDICARE, MEDICAID, SELFPAY ==
[2020-06-11] VITALS (17 sets, daily range): BP systolic 105–131; BP diastolic 67–86; PULSE 75–125; RESP 14–33; TEMP 36.5–36.6; O2SAT 88–100
--- NOTE | 2020-06-11 11:00 | RT.EKG_ITS ---
APPROVED REPORT Exam: Resting ECG Patient Location: E HR:103 bpm ECG Measurements Heart Rate 103 [place]IS [place] [id number] P [id number] QRSd 92 QRS 52 QT 362 T [id number] QTc 475 Conclusion Atrial fibrillation...V-rate 93-128, irreg A-activity Low voltage, extremity and precordial leads...extremity<0.5mV, precordial<1.0mV Nonspecific T abnormalities, lateral leads...T <-0.10mV, I aVL V5 V6 artifact V5- will repeat
--- NOTE | 2020-06-11 11:30 | RT.EKG_ITS ---
APPROVED REPORT Exam: Resting ECG Patient Location: E HR:100 bpm ECG Measurements Heart Rate 100 AXIS [place] [id number] P [id number] QRSd 101 QRS 77 QT 370 T [id number] QTc 477 Conclusion Atrial fibrillation...V-rate 86-123, irreg A-activity Low voltage, extremity and precordial leads...extremity<0.5mV, precordial<1.0mV Nonspecific T abnormalities, lateral leads...T <-0.10mV, I aVL V5 V6
--- NOTE | 2020-06-11 11:35 | ED.GENADUL_ITS ---
Discharge Plan Disposition Patient Disposition: AGAINST MEDICAL ADVICE Condition: Serious Discharge Details Clinical Impression: Abdominal ascites, Pleural effusion, right Primary Care Provider: Ling Pepe ED Provider: Lila Enriquez Home Meds and New Rx's Prescriptions: Continued famotidine 40 mg tablet 40 mg PO DAILY RF: 0 spironolactone 100 mg tablet 50 mg PO DAILY RF: 0 furosemide 80 mg tablet 80 mg PO DAILY RF: 0 nitroglycerin 0.4 mg Tablet, Sublingual 0.4 mg SUBLINGUAL Q5M PRNRF: 0 Xifaxan 550 mg tablet 550 mg PO BID RF: 0 lactulose 20 gram/30 mL Solution 20 g PO TID RF: 0 No Action metoprolol succinate 100 mg tablet extended release 24 hr 100 mg PO HS RF: 0 potassium chloride 20 mEq tablet,ER particles/crystals 20 meq PO DAILY RF: 0 magnesium 200 mg tablet 200 mg PO BID Qty: 60 RF: 12 Discharge Instructions Instructions: Ascites (ED), Paracentesis (DC) Additional Instructions: Call and make an appointment with general surgery within the next week for possible thoracentesis and recurrent paracentesis. At this time you are choosing to leave AGAINST MEDICAL ADVICE I do recommend admission at this time and your condition could worsen resulting in . Follow up with primary care provider in 3-5 days. Return to ED sooner if any worsening or concerns. If you change your mind you may return at any time. Referrals: Ling Pepe [Primary Care Provider] - Hazel Lindsey DO [OSTEOPATHIC DOCTOR] - (Follow up for thoracentesis and paracentesis) Discharge Data Discharge Date/Time-TO BE ENTERED AT DEPARTURE: 06/11/20 15:45 Medical Decision Making <Lila Enriquez - Last Filed: 06/12/20 08:06> 55-year-old female presents to the ED with chief complaint of shortness of breath. She was seen here for the same 2 days ago and left AMA. She has been seen here frequently and does leave AMA on a regular basis. She was found to have hypomagnesemia, elevated creatinine, elevated bilirubin, elevated INR and anemia she has a history of right pleural effusion. She has a history of depression, encephalopathy, cirrhosis, hyponatremia, atrial fibrillation, CHF, chronic hepatitis C, renal failure. She is required 2 paracentesis this Monday time 5000 mils fluid was drained. Patient states that she normally is seen in [place]. Upon initial presentation she is refusing additional IV sticks and blood draw, she states that she does not want any imaging and she does not want to be admitted to the hospital. Discussed the risks of this and that I would probably recommend similar for her to be admitted patient verbalizes understanding. I discussed case with Dr. Leiva who is the ER attending. Will discuss with patient the risks involved of just doing a paracentesis without imaging. Discussed risks including decreased blood pressure, infection, complications to not excluding . Patient verbalized understanding. 1235: Spoke with Dr. Lindsey regarding patient discussed need for paracentesis and possible thoracentesis she was able to personally review patient's images from 2 days ago and she does agree that patient needs a paracentesis and admission. She also agrees that she will be available for patient to follow-up with general surgery every couple weeks for paracentesis if needed. Patient did agree to have IV started with blood draw, hemoglobin is 8.5 hemat ocrit 26.9, platelets are 120 which are consistent with the levels from 2 days ago., GFR is 20.15. Magnesium is 1.6 total bilirubin is 5.1 liver enzymes are elevated AST 41, ALT 26 alk phos is 166. BNP is 3994. Albumin is 3.0. At this time INR is pending for Dr. Leiva who will perform the paracentesis after INR is resulted. 1420: Dr. Cali DE LA ROSA at bedside for paracentesis. Patient tolerated well. 3-1/2 L of orange clear fluid removed. Fluid sent for cell count and Gram stain. Patient remained hemodynamically stable and was monitored throughout procedure. Please see his procedure note as noted above. 1431: Spoke with Dr. Abbasi with [facility] regarding patient. Discussed patient case in details with her she verbalized understanding and agrees to the plan to have patient follow-up with our surgery every couple of weeks for possible recurrent paracentesis need and possible thoracentesis. Will place patient on the outpatient follow-up list. Magnesium is infusing without difficulty patient states that her shortness of breath has decreased. Patient requesting to leave AMA. The patient appears clinically sober and is not under the influence of any known substances. Discussed risks and benefits with patient. Patient verbalizes understanding of situation and the risks of leaving including worsening condition, developing disability, including but not limited to .Discussed results of labs and imaging, if they were performed and recommendations for further treatment and/or observation. The patient verbalizes understanding of the results discussed. Every effort was made to involve family if appropriate and situation discussed. At this time patient has opted to leave against medical advice. Patient is alert and oriented and has the capacity to make own decisions. <Mauricio Leiva MD - Last Filed: 06/18/20 09:19> Patient seen, examined, and discussed with EDISON Enriquez. I agree with treatment plan as discussed/documented. ECG was reviewed and interpreted by me: Please see report initial ECG with artifact, repeat ECG performed and A. fib with ventricular rate 100 bpm, low voltage, nonspecific T wave abnormalities. Paracentesis, therapeutic was performed by me. Please see procedure note. Patient was given albumin infusion. I recommended the patient stay for admission. I had a discussion with her about my diagnostic/treatment plan. She declines plan and wishes to leave against medical advise. I reiterated my concerns to the patient and explained the risks of leaving prior to completion of workup and treatment. I specifically emphasized the possibility of life- threatening or lifestyle modifying disease that would not be appropriately treated if they leave. Patient verbalized understanding of my concerns and the potential for life threatening or lifestyle modifying disease. Patient has capacity to make informed decision. I again explained my concerns and urged the patient to stay for treatment as outlined. Patient continued to refuse. I then discussed potential less ideal alternatives to diagnostic/treatment plan as outlines and patient refused. I recommended that the patient follow-up with primary care physician ARIELLA or return to the Emergency Department at any time for further treatment. HPI <Lila Enriquez - Last Filed: 06/12/20 08:06> General Mode of arrival: ambulatory . Date/Time Provider Initiated Documentation: 06/11/20 11:10 . Limitations to Documentation: no limitations . Information obtained by: patient . HPI Narrative: 55-year-old female presents to the ED with chief complaint of shortness of breath. She was seen here for the same 2 days ago and left AMA. She has been seen here frequently and does le ave AMA on a regular basis. She was found to have hypomagnesemia, elevated creatinine, elevated bilirubin, elevated INR and anemia she has a history of right pleural effusion. She has a history of depression, encephalopathy, cirrhosis, hyponatremia, atrial fibrillation, CHF, chronic hepatitis C, renal failure. She is required 2 paracentesis this Monday time 5000 mils fluid was drained. Patient states that she normally is seen in [place]. Upon initial presentation she is refusing additional IV sticks and blood draw, she states that she does not want any imaging and she does not want to be admitted to the hospital. Discussed the risks of this and that I would probably recommend similar for her to be admitted patient verbalizes understanding. Related Data Home Medications Medication Instructions Recorded Confirmed Xifaxan 550 mg PO BID 04/18/20 06/15/20 famotidine 40 mg PO DAILY 04/18/20 06/15/20 furosemide 80 mg PO DAILY 04/18/20 06/15/20 lactulose 20 g PO TID 04/18/20 06/15/20 nitroglycerin 0.4 mg SUBLINGUAL Q5M PRN 04/18/20 06/15/20 spironolactone 50 mg PO DAILY 04/18/20 06/15/20 magnesium 200 mg PO BID #60 tab 06/15/20 metoprolol succinate 100 mg PO HS 06/15/20 06/15/20 potassium chloride 20 meq PO DAILY 06/15/20 06/15/20 Previous Rx's Medication Instructions Recorded magnesium 200 mg PO BID #60 tab 06/15/20 Allergies Allergy/AdvReac Type Severity Reaction Status Date / Time amphetamine aspartate Allergy Severe Facial Unverified 06/15/20 09:45 [From Adderall] Swelling, Blisters, Tongue Swelling, Rash, amphetamine sulfate Allergy Severe Facial Unverified 06/15/20 09:45 [From Adderall] Swelling, Blisters, Tongue Swelling, Rash, dextroamphetamine saccharate Allergy Severe Facial Unverified 06/15/20 09:45 [From Adderall] Swelling, Blisters, Tongue Swelling, Rash, dextroamphetamine sulfate Allergy Severe Facial Unverified 06/15/20 09:45 [From Adderall] Swelling, Blisters, Tongue Swelling, Rash, Penicillins Allergy Intermediate Hives, Unverified 06/15/20 09:45 Rash, Tongue Swelling codeine AdvReac Mild Constipatio Unverified 06/15/20 09:45 n General Stated Complaint: SOB JOE: 2 Review of Systems <Lila Enriquez - Last Filed: 06/12/20 08:06> Narrative: Constitutional: Negative for weight loss, alert and oriented, well groomed, normal body habitus, appears uncomfortable. Does appear jaundiced. HEENT: Denies trauma, headaches, blurry vision, nasal discharge, sore throat, trouble swallowing. Chest: Denies chest pain, palpitations, irregular rhythm, hypertension. Respiratory: Denies cough, hemoptysis. Positive worsening shortness of breath recently diagnosed with a right-sided pleural effusion. GI: Denies nausea, vomiting, diarrhea, constipation. Positive abdominal pain and bloating history of liver cirrhosis and ascites. : Denies dysuria, hematuria, flank pain, rectal bleeding. Neuro: Denies dizziness, blurry vision, syncope, headache or facial numbness. Positive generalized weakness. Hematologic: Denies easy bruising, intolerance to heat or cold, hair loss. PFSH <Lila Enriquez - Last Filed: 06/12/20 08:06> Medical History Advanced hepatic cirrhosis Hep C & ETOH Anxiety Atrial fibrillation with controlled ventricular rate Attention deficit hyperactivity disorder, combined type Cholestasis of Chronic hepatitis C CKD (chronic kidney disease) stage 4, GFR 15-29 ml/min COVID-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 Irritable colon Nephrotic syndrome Pleural effusion associated with hepatic disorder Renal failure syndrome Surgical History section x2 Hx of tubal ligation Family History Mother Hypertensive disorder, systemic arterial Father Hypertensive disorder, systemic arterial Social History Smoking/Tobacco Use Status: Former Tobacco Use Quit Date: 09/18/18 Alcohol Intake: former Drug use: Never Substance use type: does not use Do you feel safe at home: Yes Do you feel safe in your relationship?: Yes 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 Appears older than stated age. Normal body habitus. She is jaundiced with scleral icterus. Head: Normocephalic, no trauma. Eyes: Pupils PERRLA, Red reflex noted, EOM's intact. Eyelids symmetrical without lesions, discharge, or swelling. ENT: Bilateral TM's WNL, External ear normal to inspection, no mastoid TTP, swelling, or erythema, Nasal turbinates WNL, no nasal discharge. Normal dentition, Posterior pharynx WNL, no exudate. Chest: RRR, Normal S1, S2, distal pulses intact. Resp: Diminished lung sounds, increased work of breathing. Abdomen: Distended, hard, tympanitic bowel sounds Musculoskeletal: Normal gait, 5/5 strength to all four extremities. 2+ edema bilateral lower extremities. Skin: No suspicious rashes or lesions. Capillary refill less than 2 sec. appears jaundiced. Neurologic: Cranial nerves II-XII intact. Alert and oriented x 3. DTR's intact. Hematologic/Lymphatic: No ecchymosis, no lymphadenopathy. Course <Lila Enriquez - Last Filed: 06/12/20 08:06> Vital Signs Vital signs: Vital Signs Temperature 36.6 C 06/11/20 11:19 Pulse 95 H 06/11/20 11:19 Respiratory Rate 14 06/11/20 11:19 Blood Pressure 126/73 06/11/20 11:19 Pulse Oximetry 88 L 06/11/20 11:19 Temperature 36.6 C 06/11/20 11:19 Temperature Source Tympanic 06/11/20 11:19 Pulse 95 H 06/11/20 11:19 Respiratory Rate 16 06/11/20 11:24 Respiratory Effort 06/11/20 11:24 Respiratory Depth Shallow 06/11/20 11:24 Respiratory Pattern Irregular 06/11/20 11:24 Blood Pressure 126/73 06/11/20 11:19 Blood Pressure Position Sitting 06/11/20 11:19 Pulse Oximetry 88 L 06/11/20 11:19 Oxygen Delivery Method Room Air 06/11/20 11:19 Oxygen Flow Rate 0 06/11/20 11:19 Pain Level 10 06/11/20 11:24 Comment 06/11/20 11:19 <Mauricio Leiva MD - Last Filed: 06/18/20 09:19> Paracentesis Time Out Performed: Yes Local Anesthetic: Lidocaine 1% and with Epi Amount of anesthesia used (mL): 3 Fluid: clear (dark yellow) Post Procedure Exam: awake, alert, normal BP, normal HR and normal SpO2 Patient Tolerated Procedure: well and no complications Complications: none
[2020-06-11 12:13] LABS: Abs Immature Grans 0.04 10^3/uL (0.0-0.06); Absolute Basophil Count 0.04 10^3/uL (0.0-0.2); Absolute Eosinophil Count 0.22 10^3/uL (0.0-0.7); Absolute Monocyte Count 1.14 10^3/uL (0.1-0.8); Absolute Neutrophil Count 3.06 10^3/uL (1.2-6.7); Basophils % 0.7; Eosinophils % 3.6; HCT 26.9 % (36.0-46.0); HGB 8.5 g/dL (11.2-15.7); Immature Grans % 0.7; Lymphocytes % 26.2; MCH 33.6 pg (27.0-33.0); MCHC 31.6 % (32.0-36.0); MCV 106.3 fL (80-95); MPV 10.4 fL (8.0-11.0); Monocytes % 18.7; Neutrophils % 50.1; Nucleated RBC 0 %; Platelet Count 120 10^3/uL (130-400); RBC 2.53 10^6/uL (3.93-5.22); RDW 19.7 % (11.7-14.6); RDW-SD 76.9 fL
[2020-06-11 12:26] LABS: Anisocytosis 2+; Diff Comment RBC Morph Reviewed; Hypochromasia 1+; Macrocytosis 2+; Poikilocytes 1+; Polychromasia Present
[2020-06-11 12:29] LABS: ALT 26 U/L (14-59); AST 41 U/L (15-37); Alkaline Phosphatase 166 U/L (46-116); Anion Gap 8.1 mmol/L (3-11); BUN 41 mg/dL (7-18); Bilirubin, Total 5.1 mg/dL (0.2-1.0); CO2 26.9 mmol/L (21.0-32.0); Calcium 8.8 mg/dL (8.5-10.1); Chloride 105 mmol/L (98-107); Estimated GFR 20.15 (mL/min/1.73m2); Glucose 95 mg/dL (74-106); Potassium 3.3 mmol/L (3.5-5.1); Sodium 140 mmol/L (136-145); Total Protein 6.7 g/dL (6.4-8.2)
[2020-06-11 12:37] LABS: Magnesium 1.6 mg/dL (1.8-2.4); NT-proBNP 3994 pg/mL (<300); PTT Activated 37.8 sec (21.0-31.4)
[2020-06-11 12:56] LABS: INR 1.7 (0.9-1.1); Prothrombin Time 17.3 sec (9.3-11.0)
[2020-06-11] MEDS: ALBUMIN HUMAN 25 GM/100 ML BTL IV (13:40)
[2020-06-11] MEDS: MAGNESIUM SULFATE 1 GM/100 ML BAG IVPB (14:41)
[2020-06-11 15:08] LABS: Clarity Clear; Mononuclear Cells 75 %; Nucleated Cells 152 uL (0); Polynuclear Cells 25 %; Source Peritoneal
--- NOTE | 2020-06-11 15:08 | NUR.NOTE ---
Nursing Note: Referral for follow up to [facility] faxed. Pam Madsen
[2020-06-11 21:41] LABS: Albumin, Body FLuid <1.0 g/dL (See Note); Glucose, Fluid 101 mg/dL (See Note)
[2020-06-13 14:06] LABS: Fluid Type PERITONEAL; Protein,Total, BF 0.7 g/dL
== END 2020-06-11 15:45 | disposition left against medical advice (07) ==
PROVIDERS: Student in an Organized Health Care Education/Training Program; Emergency Provider Registered Nurse Emergency; PCP Nurse Practitioner Family
DX: R18.8 Other ascites (principal); J90 Pleural effusion, not elsewhere classified; E83.42 Hypomagnesemia; R77.0 Abnormality of albumin; Z53.29 Procedure and treatment not carried out because of patient's decision for other reasons
CPT/HCPCS: 36415; 49082; 80053; 82042; 93005; 96365; 96367; 99285; 81373; 83735; 83880; 84157; 85025; 85610; 85730; 87070; 87205; 89051; 93010; J3475

== ENCOUNTER 2020-06-15 08:56 | Day surgery (SDC) | payer MEDICARE, MEDICAID, SELFPAY ==
--- NOTE | 2020-06-15 09:28 | DI.RAD_ITS ---
EXAM: XR CHEST 2V PA LATERAL CLINICAL HISTORY: liver failure/pleural eff TECHNIQUE: 2D digital imaging was performed. COMPARISON: CR,XR XR CHEST 2V PA LATERAL from 06/09/2020 FINDINGS: Interval increase in size of the left pleural effusion which now occupies at least 3/4 of the right c hest volume. The left lung appears clear. The heart size is normal. Scoliosis is again noted. IMPRESSION: Interval increase in size of left pleural effusion.
[2020-06-15 09:39] VITALS: BP 93/56; PULSE 90; RESP 18; TEMP 36.1; O2SAT 95
--- NOTE | 2020-06-15 10:56 | ROE_ITS ---
Date of service: 06/15/20 Time of Service: 10:56 Operative Note Operative Note DATE OF PROCEDURE: 06/15/20 PRE-OP DIAGNOSIS: advance cirrhosis: pleural eff and ascites POST-OP DIAGNOSIS: same PROCEDURE: paracentisi/thorocentisis- right SURGEON: Hazel Lindsey ESTIMATED BLOOD LOSS: 2 PATHOLOGY: none sent COMPLICATIONS: None Patient was transported to: same day Procedure Description: Pt is here today for thoracentesis for symptoms of shortness of breath. Chest x-ray was reviewed prior to beginning the procedure. Informed consent was obtained explaining risks and benefits of the procedure, including but not limited to bleeding, infection, pneumothorax, recurrence, complications of anesthesia, and other unforetold complications. PROCEDURE: The patient is brought to the procedure room and placed in the seat ed position. Ultrasound is used to localize the pocket on the right chest. The area is marked and then prepped and draped in the usual sterile fashion using a ChloraPrep scrub solution. 10 cc's of 1% Lidocaine is used to anesthetize the T10 interspace. The small chai is made with a #11 blade. The needle and catheter is then inserted over the top of the rib, aspirating as it is inserted. The needle is then removed. The catheter is then hooked up to the Vacutainer system and 3300 cc's of straw-colored fluid is evacuated. The catheter is removed; pressure is held. Sterile compression dressing is applied. Patient has been placed in the right decubitus position. A time-out is done. Ultrasound is used to localize the pocket. The area is prepped and draped in the usual sterile fashion using a ChloraPrep scrub solution. 20 cc's of 1% Lidocaine with epinephrine is used for local anesthetization. The abdomen is punctured and the catheter is inserted. 5 liters of light yellow fluid is evacuated today. The catheter is removed. Pressure dressing is applied. The patient tolerated the procedure well without complication. Portable chest x-ray shows no pneumothorax. Pt is given instructions in wound care, activity, medications, and warning signs: SOB, increasing in pain, chest pain, redness or temperature- if these occur, come to ED.
[2020-06-15 11:06] LABS: Abs Immature Grans 0.04 10^3/uL (0.0-0.06); Absolute Basophil Count 0.05 10^3/uL (0.0-0.2); Absolute Eosinophil Count 0.21 10^3/uL (0.0-0.7); Absolute Lymphocyte Count 1.33 10^3/uL (1.2-3.4); Absolute Monocyte Count 0.73 10^3/uL (0.1-0.8); Absolute Neutrophil Count 2.77 10^3/uL (1.2-6.7); Eosinophils % 4.1; HCT 27.5 % (36.0-46.0); Immature Grans % 0.8; Lymphocytes % 25.9; MCH 34.4 pg (27.0-33.0); MCHC 32.7 % (32.0-36.0); Monocytes % 14.2; Nucleated RBC 0 %; Platelet Count 105 10^3/uL (130-400); RBC 2.62 10^6/uL (3.93-5.22); RDW 19.6 % (11.7-14.6); RDW-SD 75.7 fL; WBC 5.13 10^3/uL (4.4-10.8)
--- NOTE | 2020-06-15 11:11 | W.SURGCON ---
Date of service: 06/15/20 Time of Service: 11:11 Assessment and Plan Assessment and plan (1) Advanced hepatic cirrhosis: Status: Acute Assessment and plan: SOB from pleural eff and ascites. Patient is here today for right-sided thoracentesis and paracentesis. Risks include but not limited to: Bleeding, infection, pneumonia, pneumothorax, complications from local anesthetics, continued leakage from the puncture site and other unforetold complications, damage to internal organs. Patient understands that this will be continued problems as long as she has hepatic failure and may require repeat procedures. Patient follows up closely with GI for routine care. She has an EGD scheduled with them in 2 weeks time. We will see her back in 2 weeks time for repeat paracentesis if she cannot wait 2 weeks she should contact the office and we will schedule her sooner Patient is given instructions in diet. She said she never been given any instructions in diet and encouraged her to follow-up low-sodium high-protein diet. (2) Atrial fibrillation with controlled ventricular rate: Status: Acute (3) CKD (chronic kidney disease) stage 4, GFR 15-29 ml/min: Status: Acute (4) Cardiomyopathy: Status: Active (5) Congestive heart failure: Status: Active (6) Pleural effusion: Status: Active (7) Viral hepatitis C: Status: Active (8) Hypomagnesemia: Status: Acute (9) Elevated INR: Status: Acute (10) Anemia: Status: Chronic (11) Abdominal ascites: Status: Acute (12) Nephrotic syndrome: Status: Acute History of Present Illness Narrative: pt is experiences acute decompensation of hepatic function resulsting in acistes/pleural effusion. Dx is due to combination of Hep C and ETOH. Hep C was acquired from [facility]DA. She had a pelvic infection back in January. This seemed to throw her into acute hepatic, renal, cardiac failure. SHe was in W/ HE and e coli bacteremia in January. Her LFT's /liver function have been slowly improving. She is going to start treatment for Hep C- She just received the medications yesterday 06/14. She quite smoking x1 yrs ago. none recently. No ETOH recently Her K and Mg have been low. She is on aggressive diuretic therapy w/ Pot replacement. However no magnesium replacement She had an episode of HE in January and is on Rifimax for this. no encephlopathy today. She complains of shortness of breath. She can only walk from her living room to her bedroom. She denies any chest pain. Her systolic BP was 93 when we started the procedure today. Labs reviewed today. Notes from [facility] were reviewed as well. Consults Consult date: 06/15/20 Review of Systems All systems reviewed & are unremarkable except as noted in HPI and below PFSH Medical History Advanced hepatic cirrhosis Hep C & ETOH Anxiety Atrial fibrillation with controlled ventricular rate Attention deficit hyperactivity disorder, combined type Cholestasis of Chronic hepatitis C CKD (chronic kidney disease) stage 4, GFR 15-29 ml/min COVID-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 Irritable colon Nephrotic syndrome Pleural effusion associated with hepatic disorder Renal failure syndrome Surgical History section x2 Hx of tubal ligation Family History Mother Hypertensive disorder, systemic arterial Father Hypertensive disorder, systemic arterial Social History Smoking/Tobacco Use Status: Former Tobacco Use Quit Date: 09/18/18 Alcohol Intake: former Drug use: Never Substance use type: does not use Do you feel safe at home: Yes Do you feel safe in your relationship?: Yes 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 HENMT Other: Edentulous No thrush No edema Jaundice+ Resp Effort & Inspection: normal respiratory effort, able to speak in complete sentences, no respiratory distress and no retractions Other: Decreased/muffled breath sounds on the right Cardio Rate: regular rate Rhythm: other (A. fib) Heart Sounds: no murmurs GI Inspection: normal to inspection, distended, obesity and striae Palpation: soft, nontender and ascites Auscultation: normal bowel sounds Other: no hernias no surgical scars Extrem Other: +1 pitting edema of LE. + muscle wasting Results Last Vital Signs Temp 36.1 C L 06/15/20 09:39 Pulse 90 06/15/20 09:39 Resp 18 06/15/20 09:39 BP 93/56 L 06/15/20 09:39 Pulse Ox 95 06/15/20 09:39 Labs Result diagrams: 06/15/20 10:50 06/15/20 10:50
[2020-06-15 11:29] LABS: ALT 27 U/L (14-59); AST 45 U/L (15-37); Albumin 2.7 g/dL (3.4-5.0); Alkaline Phosphatase 147 U/L (46-116); Anion Gap 8.1 mmol/L (3-11); BUN 37 mg/dL (7-18); Bilirubin, Total 4.9 mg/dL (0.2-1.0); CO2 24.9 mmol/L (21.0-32.0); CREATININE 2.41 mg/dL (0.55-1.02); Calcium 8.3 mg/dL (8.5-10.1); Chloride 105 mmol/L (98-107); Estimated GFR 21.02 (mL/min/1.73m2); Glucose 92 mg/dL (74-106); Potassium 3.5 mmol/L (3.5-5.1); Sodium 138 mmol/L (136-145)
[2020-06-15 11:36] LABS: Magnesium 1.6 mg/dL (1.8-2.4)
[2020-06-15 11:38] LABS: Prothrombin Time 19.2 sec (9.3-11.0)
[2020-06-15 11:52] LABS: INR 1.9 (0.9-1.1)
--- NOTE | 2020-06-15 13:04 | W.PM.DSUDISC ---
Discharge Plan Disposition Patient Disposition: HOME Condition: Good Discharge Details Reason For Visit: removal fluid from chest and stomach Attending Provider: Hazel Lindsey Primary Care Provider: Ling Pepe Home Meds and New Rx's Prescriptions: New magnesium 200 mg tablet 200 mg PO BID Qty: 60 RF: 12 Continued famotidine 40 mg tablet 40 mg PO DAILY RF: 0 spironolactone 100 mg tablet 50 mg PO DAILY RF: 0 furosemide 80 mg tablet 80 mg PO DAILY RF: 0 nitroglycerin 0.4 mg Tablet, Sublingual 0.4 mg SUBLINGUAL Q5M PRNRF: 0 Xifaxan 550 mg tablet 550 mg PO BID RF: 0 lactulose 20 gram/30 mL Solution 20 g PO TID RF: 0 metoprolol succinate 100 mg tablet extended release 24 hr 100 mg PO HS RF: 0 potassium chloride 20 mEq tablet,ER particles/crystals 20 meq PO DAILY RF: 0 Discharge Instructions Additional Instructions: Findings: 3300cc removed from chest 5000cc removed from abdomen Follow up: 2 weeks -resume all medications -hold spironalactone for 24hr. Resume on Monday -start magnesium 200mg po BID Please call if you develop: fevers >101.5 Nausea or Vomiting Abdominal pain that is not transient DAY SURGERY UNIT POST COLONOSCOPY INSTRUCTIONS 1. Because there will be medication in your system for the next 24 hours, you may feel a little sleepy. Your coordination will be affected. Therefore: a. Do not drive or operate dangerous equipment for 24 hours. b. Do not drink alcohol beverages for 24 hours (not even beer). c. Plan to go home and rest for the day. 2. Generally there are no restrictions on your activity after a day or so has gone by, but you may feel a bit fatigued for a few days. 3 After you arrive home you may have a light meal and return to a normal diet as you can tolerate it without feeling sick to your stomach. 4. After surgery, you may feel pain or discomfort. This should be only transient, but if it persists please contact your doctor. 5. If there are any questions regarding the findings of your procedure, please feel free to contact your doctor. 6. If you are unable to contact your doctor with a problem, contact the hospital at [phone]. 7. Continue all your regular medications unless directed otherwise. I understand the above instructions and have no questions. Signature of Patient or Responsible Adult Escort Date/Time Name of Responsible Adult Escort Signature of Nurse Date/Time Activity:: Activity as Tolerated Remove Dressings/Wound Care:: 24 hours Shower/Bathe:: 24 hours Diet:: Low Sodium DS: Diagnosis Discharge Diagnosis (1) Advanced hepatic cirrhosis: Status: Acute (2) Atrial fibrillation with controlled ventricular rate: Status: Acute (3) CKD (chronic kidney disease) stage 4, GFR 15-29 ml/min: Status: Acute (4) Cardiomyopathy: Status: Active (5) Congestive heart failure: Status: Active (6) Pleural effusion: Status: Active (7) Viral hepatitis C: Status: Active (8) Hypomagnesemia: Status: Acute (9) Elevated INR: Status: Acute (10) Anemia: Status: Chronic (11) Abdominal ascites: Status: Acute (12) Nephrotic syndrome: Status: Acute (13) Pleural effusion associated with hepatic disorder: Status: Acute
--- NOTE | 2020-06-15 13:15 | DI.RAD_ITS ---
EXAM: XR PORTABLE CHEST AP CLINICAL HISTORY: s/p thorcetisis TECHNIQUE: 2D digital imaging was performed. COMPARISON: No exams were available for comparison FINDINGS: Patient is status post thoracentesis. There has been significant reduction in size of previously not ed large right pleural effusion, now small. No pneumothorax is seen. There is residual edema in the right lower lobe. Left lung remains clear. IMPRESSION: Significant decrease in size of right pleural effusion, now small. No pneumothorax.
[2020-06-15] MEDS: Normal Saline Flush 10 ML SYR IV (13:25)
[2020-06-15] MEDS: ALBUMIN HUMAN 25 GM/100 ML BTL IV ×2 (13:28→14:03)
[2020-06-15 13:48] VITALS: BP 156/58; PULSE 88; RESP 16; TEMP 36.4; O2SAT 92
[2020-06-15 14:15] VITALS: BP 90/63; PULSE 90; RESP 18; TEMP 36.4; O2SAT 93
[2020-06-15 14:40] VITALS: BP 94/59; PULSE 88; RESP 16; TEMP 36.3; O2SAT 87
== END 2020-06-15 14:55 | disposition home or self-care (01) ==
PROVIDERS: PCP Nurse Practitioner Family; Visit Provider Surgery
PROC: 0W9G3ZZ Drainage of Peritoneal Cavity, Percutaneous Approach (ICD-10-PCS; CPT 49082; principal; 2020-06-15 10:00)
PROC: (CPT 32554; 2020-06-15 10:00)
DX: K70.31 Alcoholic cirrhosis of liver with ascites (principal); J91.8 Pleural effusion in other conditions classified elsewhere; B19.20 Unspecified viral hepatitis C without hepatic coma
CPT/HCPCS: 49083; 32555; 80053; 96365; 96366; 71045; 71046; 83735; 85025; 85610

== ENCOUNTER 2020-06-20 12:14 | Inpatient (IN) | payer MEDICARE, MEDICAID, SELFPAY ==
[2020-06-20] VITALS (22 sets, daily range): BP systolic 87–156; BP diastolic 47–136; PULSE 70–81; RESP 12–20; TEMP 35.8–36.8; O2SAT 97–100
--- NOTE | 2020-06-20 12:15 | DI.CT_ITS ---
EXAM: CT HEAD WO CLINICAL HISTORY: confusion TECHNIQUE: COMPARISON: No exams were available for comparison FINDINGS: Noncontrast cranial CT was performed. The examination is severely limited due to patient motion. No gross intracranial hemorrhage seen. No gross midline shift. Question asymmetry posterior right jamison vian fissure, mass-effect not entirely excluded but this is most likely due to artifact. Appropriate follow-up studies requested. IMPRESSION: Severely limited scan. No gross intracranial hemorrhage.. Follow-up scan requested for evaluation o f possible mass effect, right temporal lobe. RADIATION DOSE DELIVERED: 1,152.56mGy.cm Total DLP
--- NOTE | 2020-06-20 12:15 | RT.EKG_ITS ---
APPROVED REPORT Exam: Resting ECG Patient Location: E HR:78 bpm ECG Measurements Heart Rate 78 AXIS GA [id number] P [id number] QRSd 94 QRS 27 QT 419 T 45 QTc 479 Conclusion Atrial fibrillation...V-rate 64- 83, irreg A-activity Low voltage, extremity leads...all extremity leads <0.5mV
--- NOTE | 2020-06-20 12:16 | ED.GENADUL_ITS ---
Discharge Plan Disposition Patient Disposition: [facility] INPATIENT Condition: Serious Discharge Details Clinical Impression: Acute hepatic encephalopathy, Creatinine elevation, Hypokalemia Primary Care Provider: Ling Pepe ED Provider: Shelli Cornell Home Meds and New Rx's Prescriptions: No Action famotidine 40 mg tablet 40 mg PO DAILY RF: 0 spironolactone 100 mg tablet 50 mg PO DAILY RF: 0 furosemide 80 mg tablet 80 mg PO DAILY RF: 0 nitroglycerin 0.4 mg Tablet, Sublingual 0.4 mg SUBLINGUAL Q5M PRNRF: 0 Xifaxan 550 mg tablet 550 mg PO BID RF: 0 lactulose 20 gram/30 mL Solution 20 g PO TID RF: 0 metoprolol succinate 100 mg tablet extended release 24 hr 100 mg PO HS RF: 0 potassium chloride 20 mEq tablet,ER particles/crystals 20 meq PO DAILY RF: 0 magnesium 200 mg tablet 200 mg PO BID Qty: 60 RF: 12 Medical Decision Making Patient is a 55-year-old female past medical history significant for pleural effusion, nephrotic syndrome, advanced hepatic cirrhosis, atrial fibrillation, CKD, cardiomyopathy, CHF, hepatitis C, anxiety, ADHD, abdominal ascites. Patient is brought in by her with concern for confusion. Reports she has been like this historically when her ammonia has been elevated and is concerned for the same once again. He reports that leading up to today she had some confusion in the morning which subsided after dosing of her lactulose. He is not clear if she is been taking this routinely. Patient is very noncompliant and often leaves AMA. She is recently started on Epclusa as well as increased metoprolol dosing, both of which have been going on for the past week. denies her endorsing any pain. No fevers or chills. No nausea or vomiting. He reports normal appetite last night. Patient last had paracentesis on the . Patient and her both feel that the baseline distention has been quite good since that time. However, patient has had persistent drainage in the right side of her abdomen. Patient has had persistent drainage historically. On exam, patient is notably confused. When asked what month it is, she replies Monday. Next question was asked multitude of times always replying with a day of the week. She is not aware as to why she is here. She is argumentative and does not want any care. However, I do not believe the patient has capacity to make this decision at this time based on her history and exam. When I did discuss with her that I do not feel that she has capacity and that we would need to take medical intervention to be able to keep her here and continue to work her up, she became more agreeable. is at the bedside and agrees with th is. Is been as a good source of comfort for the patient. Patient is hypertensive but vital signs are otherwise within normal limits. She is noted to be jaundiced but this is patient's baseline. Abdomen actually quite good for her. Typically is much more distended and uncomfortable. At this time her abdomen is more soft and nontender. She does have some yellow-tinged fluid draining from previous paracentesis site on the right side. reports the drainage wax and wanes based on patient's activity level. Lower extremity edema is greatly improved from when I saw her last as well. Lungs are clear. ECG was reviewed by Dr. Aleman. Patient is in A. fib. No acute change compared to previous. Labs reviewed. Patient stable anemic. White count is in normal limits. INR is elevated 1.6. Lactate is elevated 2.1. Potassium is low at 3.1, will begin replenishing is now. Creatinine is 2.53 and BUN is 51. Sensory steadily increasing for the patient over the past several months. T bili 4.5 she is baseline for the patient. Ammonia 103. Albumin 3.1. This morning, I am concerned the patient episode of Warnicke's encephalopathy and will add additional dosing of her lactulose. TSH normal limits. I discussed this findings at length with patient And her . Patient continues to be very confused and is quite argumentative. upset but very supportive. Will consult with gastroenterology at [facility] [place]. Spoke with GI at [facility] [place]. She advised that she would monitor the patient x 24hr with goal 2-3BM/day while titrating lactulose. Advised work up for other sources as well, CT head and UA pending. Advised treatment for hepatic encephalopathy with continued Lactulose 20g TID for now and advised to go up as needed. She is suspicious if the patient is not taking the medication as prescribed. She does not feel that transfer would be of benefit for the patient and advises admission here. We will send fluid collected from bag for SBP, will put clean bag on now. Will obtain head CT. Plan for admission here. Consulted with Dr. Xiao who agrees to admission. Plan for CT on the way to inpatient bed. Patient is currently sleeping. She did receive 0.5 mg of Ativan to help with her anxiety initially and seems reports well for her. HPI General Mode of arrival: ambulatory . Date/Time Provider Initiated Documentation: 06/20/20 12:16 . Limitations to Documentation: altered mental status . Information obtained by: patient, family () and RN notes reviewed . HPI Narrative: Patient is a 55-year-old female, well-known to myself in the department, brought in by her with chief complaint of confusion. Patient reports that for the past several days she has been waking every morning confused but it typically this resolves within about an hour. However, today he states she awoke around 8 and continues to be confused at this time. Initially, he reported the patient had been agreeable to coming to the hospital for evaluation but then on the way here, she became more ornery and began refusing treatment. He denies her having any fevers or chills. Has not been endorsing any pain, patient denies any pain at this time. He reports that she has been taking her medications as prescribed. Was recently started on a new hepatitis C medication as well as increased dose of metoprolol approximately 1 week ago. Reports has been taking all of her medications as prescribed. He feels that her ammonia may be elevating again as she has had a history of this. reports that he did give her her lactulose dosing this morning. Related Data Home Medications Medication Instructions Recorded Confirmed Xifaxan 550 mg PO BID 04/18/20 06/20/20 famotidine 40 mg PO DAILY 04/18/20 06/20/20 furosemide 80 mg PO DAILY 04/18/20 06/20/20 lactulose 20 g PO TID 04/18/20 06/20/20 nitroglycerin 0.4 mg SUBLINGUAL Q5M PRN 04/18/20 06/20/20 spironolactone 50 mg PO DAILY 04/18/20 06/20/20 magnesium 200 mg PO BID #60 tab 06/15/20 06/20/20 metoprolol succinate 100 mg PO HS 06/15/20 06/20/20 potassium chloride 20 meq PO DAILY 06/15/20 06/20/20 Previous Rx's Medication Instructions Recorded magnesium 200 mg PO BID #60 tab 06/15/20 Allergies Allergy/AdvReac Type Severity Reaction Status Date / Time amphetamine aspartate Allergy Severe Facial Unverified 06/20/20 12:29 [From Adderall] Swelling, Blisters, Tongue Swelling, Rash, amphetamine sulfate Allergy Severe Facial Unverified 06/20/20 12:29 [From Adderall] Swelling, Blisters, Tongue Swelling, Rash, dextroamphetamine saccharate Allergy Severe Facial Unverified 06/20/20 12:29 [From Adderall] Swelling, Blisters, Tongue Swelling, Rash, dextroamphetamine sulfate Allergy Severe Facial Unverified 06/20/20 12:29 [From Adderall] Swelling, Blisters, Tongue Swelling, Rash, Penicillins Allergy Intermediate Hives, Unverified 06/20/20 12:29 Rash, Tongue Swelling codeine AdvReac Mild Constipatio Unverified 06/20/20 12:29 n General JOE: 2 Review of Systems Unobtainable due to mental status PFSH Medical History Advanced hepatic cirrhosis Hep C & ETOH Anxiety Atrial fibrillation with controlled ventricular rate Attention deficit hyperactivity disorder, combined type Cholestasis of Chronic hepatitis C CKD (chronic kidney disease) stage 4, GFR 15-29 ml/min COVID-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 Irritable colon Nephrotic syndrome Pleural effusion associated with hepatic disorder Renal failure syndrome Surgical History section x2 Hx of tubal ligation Family History Mother Hypertensive disorder, systemic arterial Father Hypertensive disorder, systemic arterial Social History Smoking/Tobacco Use Status: Former Tobacco Use Quit Date: 09/18/18 Alcohol Intake: former Drug use: Never Substance use type: does not use Do you feel safe at home: Yes Do you feel safe in your relationship?: Yes 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 Const General: comfortable, no acute distress and ill appearing acutely and chronically Nutritional Appearance: overweight Orientation: alert, awake, not oriented x3 and confused Limitations: altered mental status HENSC Head: normal to inspection, no palpable skull fracture, normocephalic and atraumatic Mouth: mucous membranes dry Eyes General: appearance abnormal, both eyes (jaundice, appears unchanged from previous visits) Resp Effort & Inspection: normal respiratory effort, able to speak in complete sentences and no respiratory distress Auscultation: clear to auscultation bilaterally, no rales, no rhonchi and no wheezes Cardio Rate: regular rate Rhythm: regular rhythm Heart Sounds: S1 normal and S2 normal GI Inspection: normal to inspection (improved for patient compared to previous visit, distention is lessened) and other (draining yellow tinged fluid right side of abdomen into colostomy bag ) Palpation: soft, not firm, no guarding, hepatosplenomegaly, not rigid, nontender and ascites Percussion: fluid wave Auscultation: normal bowel sounds Back/Spine/Pelvis Back: no CVA tenderness Skin General skin exam: no rashes or lesions noted Trauma: no lacerations or abrasions Neuro General: patient alert, patient awake, not oriented x3 (neuro exam is limited, patient does not want to participate), gait normal (ambulated into department unassisted) and no meningeal signs (no nuchal rigidity ) Cranial Nerves: PERRL, tongue midline and hearing normal Cognition: abnormal cognition Speech: speech normal Gait: normal gait Motor: muscle tone normal throughout (moving all extremities, equal bilaterally) Extrem General: capillary refill normal, no pedal edema and no calf tenderness Psych Appearance: grossly normal and disheveled Mental Status: other (patient is confused) Speech and Movement: speech and movement normal
[2020-06-20] MEDS: LORazepam 2 MG/ML VIAL 0.5 MG IVP (13:02)
[2020-06-20 13:04] LABS: Abs Immature Grans 0.02 10^3/uL (0.0-0.06); Absolute Basophil Count 0.03 10^3/uL (0.0-0.2); Absolute Eosinophil Count 0.14 10^3/uL (0.0-0.7); Absolute Lymphocyte Count 0.97 10^3/uL (1.2-3.4); Absolute Neutrophil Count 3.34 10^3/uL (1.2-6.7); Basophils % 0.6; Eosinophils % 2.8; HCT 30.9 % (36.0-46.0); Immature Grans % 0.4; Lymphocytes % 19.4; MCHC 32.4 % (32.0-36.0); MCV 105.1 fL (80-95); MPV 10.9 fL (8.0-11.0); Neutrophils % 66.8; Nucleated RBC 0 %; Platelet Count 108 10^3/uL (130-400); RBC 2.94 10^6/uL (3.93-5.22); RDW 19.1 % (11.7-14.6)
[2020-06-20 13:05] LABS: Lactate 2.1 mmol/L (0.6-1.4)
[2020-06-20 13:08] LABS: INR 1.6 (0.9-1.1); Prothrombin Time 15.6 sec (9.3-11.0)
[2020-06-20 13:11] LABS: Ammonia 103 umol/L (11-32)
[2020-06-20 13:14] LABS: ALT 25 U/L (14-59); AST 38 U/L (15-37); Albumin 3.1 g/dL (3.4-5.0); Alkaline Phosphatase 196 U/L (46-116); Anion Gap 9.8 mmol/L (3-11); BUN 51 mg/dL (7-18); Bilirubin, Total 4.5 mg/dL (0.2-1.0); CO2 24.2 mmol/L (21.0-32.0); CREATININE 2.53 mg/dL (0.55-1.02); Calcium 8.6 mg/dL (8.5-10.1); Chloride 105 mmol/L (98-107); Estimated GFR 19.87 (mL/min/1.73m2); Glucose 105 mg/dL (74-106); Magnesium 1.9 mg/dL (1.8-2.4); Potassium 3.1 mmol/L (3.5-5.1); Sodium 139 mmol/L (136-145); Total Protein 6.6 g/dL (6.4-8.2)
[2020-06-20 13:23] LABS: ETHANOL BLOOD 4.1 mg/dL (<3); Troponin I < 0.05 ng/mL (<0.06)
[2020-06-20] MEDS: POTASSIUM CHLORIDE 20 MEQ/100 ML BAG 50 MEQ IVPB ×2 (13:30→21:30)
[2020-06-20] MEDS: Lactated Ringers 500 ML IV (13:30)
[2020-06-20] MEDS: Lactulose 20 GM/30 ML CUP PO (13:50)
--- NOTE | 2020-06-20 14:15 | DI.RAD_ITS ---
EXAM: XR PORTABLE CHEST AP CLINICAL HISTORY: AMS TECHNIQUE: COMPARISON: CR XR PORTABLE CHEST AP from 06/15/2020 CR,XR XR PORTABLE CHEST AP POST LINE from 06/20/2020 CR,XR XR PORTABLE CHEST AP POST LINE from 06/20/2020 FINDINGS: Portable AP chest at 1500 hours June 20 there is a poor inspiration. No definite consolidation. No gross pleural effusion on this frontal film. Cardiac size is at the upper limits of normal. IMPRESSION: No evidence of acute process. RADIATION DOSE DELIVERED: Total DLP
--- NOTE | 2020-06-20 15:13 | DI.VRAD_ITS ---
PROCEDURE INFORMATION: Exam: XR Chest, 1 View Exam date and time: 06/20/2020 2:57 PM Clinical indication: Other: AMS TECHNIQUE: Imaging protocol: XR of the chest Views: 1 view. COMPARISON: X-ray chest dated 06/15/2020. FINDINGS: Lungs: Lungs volumes are low with e interval increase in volume of the lungs. Six there are opacities in the right lower lung. Left lung is clear. Cardiac silhouette is borderline in size. No acute abnormality noted structures. Soft tissues unremarkable. Pleural space: Unremarkable. No pleural effusion. No pneumothorax. Heart/Mediastinum: See Lungs finding. Bones/joints: Unremarkable. IMPRESSION: 1. Low lung volumes. 2. There has been improved but residual opacities in the right lower lung lobe which might reflect consolidation since previous exam. 3. No radiographic evidence of pleural effusion on single low lungs volume AP views. Dictated and Authenticated by: Chuckie Cai MD. Ordering:MANAS Marques MD
--- NOTE | 2020-06-20 17:55 | DI.VRAD_ITS ---
Addendum created by Chuckie Cai DO on 06/20/2020 5:57:21 PM EDT: THIS REPORT CONTAINS FINDINGS THAT MAY BE CRITICAL TO PATIENT CARE. The findings were verbally communicated via telephone conference at 5:56 PM EDT on 06/20/[address] Castillo. The findings were acknowledged and understood. Initial report created on 06/20/2020 5:55:29 PM EDT: PROCEDURE INFORMATION: Exam: CT Head Without Contrast Exam date and time: 06/20/2020 5:09 PM Age: 55 years old Clinical indication: Altered mental status/memory loss TECHNIQUE: Imaging protocol: Computed tomography of the head without contrast. COMPARISON: No relevant prior studies available. FINDINGS: This is a motion degraded exam. There is asymmetric effacement in posterior right sylvian fissure and in right temporal lobe. Additionally, there is effacement of sulci in in supratentorial brain above level of ventricles.There is no intra-axial hemorrhage. There is no midline shift. Ventricles are nondilated and somewhat slit like. There is no abnormal extra-axial fluid collection. The paranasal sinuses are clear. There is mild fluid signal in posterior right ethmoidal air cells. There is partial empty sella. There mild mastoid effusion in right mastoid air cells . There is partial empty sella. Calvarium in the base of the skull are intact. IMPRESSION: 1. Limited exam due to significant degradation by motion. 2. There is asymmetric fullness in posterior right sylvian fissure which could be due to mass effect or edema. Additionally, there is effacement of sulci within brain, more pronounced above lateral ventricles which could reflect underlying edema. Acute to subacute ischemia or underlying edema due to encephalopathy or cerebritis cannot be excluded. Further evaluation with MRI might be considered. 3. No acute intracranial hemorrhage. Dictated and Authenticated by: Chuckie Cai MD. Ordering:MANAS Marques MD
--- NOTE | 2020-06-20 18:19 | HPE_ITS ---
Date of service: 06/20/20 Time of Service: 18:19 Assessment and Plan Assessment and plan (1) Acute hepatic encephalopathy: Status: Acute Assessment and plan: We will try to get the patient to take her lactulose with increased dosage of 20 g p.o. 4 times daily until she starts having 2-3 loose bowel movements per day and then we can decrease the frequency down to 20 g p.o. twice daily. Continue her rifaximin. Monitor her electrolytes and renal and liver function. Not sure what to make of her CT findings. We may need to get an MRI scan of the brain on Monday but there is no evidence for acute encephalitis. There is no antecedent headaches nor any fever or rigors. No mass-effect was seen on CT scanning. I do not feel that she needs an LP at this point. We will cover her with IV ciprofloxacin pending the results of her blood and peritoneal fluid cultures. (2) CKD (chronic kidney disease) stage 4, GFR 15-29 ml/min: Status: Acute Assessment and plan: Her baseline BUN and creatinine appear to be 20 and a creatinine between 1.2-1.4. I am going to withhold her diuretics at the present time as she does not appear to have significant peripheral edema. She was given a 500 mL bolus of lactated Ringer's in the ER. I will give her an additional potassium supplementation and fluid bolus overnight. Repeat BMP in the morning. Will Place Dubois catheter monitor urine output. (3) Prerenal azotemia: Status: Acute Assessment and plan: As above (4) Hypokalemia: Status: Acute Assessment and plan: IV and enteral supplementation. Repeat levels in the morning. (5) Cardiomyopathy: Status: Active Assessment and plan: Continue Toprol-XL. Hold off her spironolactone and Lasix until her prerenal azotemia is corrected. (6) Atrial fibrillation with controlled ventricular rate: Status: Acute Assessment and plan: Continue telemetry monitoring. Continue Toprol-XL. (7) Viral hepatitis C: Status: Active Assessment and plan: Continue her Epclusa (8) DVT prophylaxis: Status: Acute Assessment and plan: SCD and LITZY hoses only. No heparin in light of her thrombocytopenia and cirrhosis. History of Present Illness History of Present Illness Chief Complaint: acute confusion Narrative: 55-year-old female with a history of hepatitis C and cirrhosis and hepatic encephalopathy, non-ischemic cardiomyopathy, atrial fibrillation and ascites who presents with acute delirium of 1 day onset. There is been no associated fever or rigors or abdominal pain. Patient has known hepatic encephalopathy whenever she cuts back on her lactulose. According to her she has not been having as frequent of bowel movements. He thinks that she cut back on her lactulose because she was having 5 or 6 loose bowel movements per day. Her acute confusion began this morning. Evaluation emergency department included routine labs and subsequently she underwent a CT scan of her head without contrast. CBC demonstrated a stable chronic anemia with a hemoglobin of 10 g, macrocytosis with MCV of 105, Leuk ocyte 5000 and a stable thrombocytopenia with platelet count of 108,000. CMP demonstrated chronic renal insufficiency with elevated BUN and creatinine of 51 and 2.53 and hypokalemia 3.1. Magnesium was normal at 1.9. LFTs are elevated with a total bilirubin of 4.5 and elevated alkaline phosphatase of 196 and elevated ammonia level of 103. Albumin levels low at 3.1. CT scan of the head was performed and V rad reading is suggesting some asymmetric effacement of the posterior right sylvian fissure in the right temporal lobe and effacement of sulci in the supratentorial brain above the level of ventricles with no evidence of intra-axial hemorrhage. No midline shift. No extra-axial fluid collection. Ventricles are nondilated. Impression of the radiologist is that this was a limited exam due to motion artifact but there is asymmetric fullness in the posterior right sylvian fissure which could be mass-effect or edema then acute or subacute ischemia or underlying edema due to encephalopathy or cerebritis cannot be excluded. Patient is being admitted to the ICU for evaluation and treatment of acute delirium due to probable exacerbation of hepatic encephalopathy. Patient was given a dose of her lactulose in the emergency department. She will be given her rifaximin as well as further dose of lactulose until she has 3-4 loose bowel movements per day and her ammonia level declines. Additionally it was noted that she has been having paracentesis every couple weeks and she is having some drainage from her previous paracentesis site over the right lower quadrant. This fluid appears to be clear yellow ascitic fluid. Discussed the case with the ER personnel and is not felt that she has evidence for spontaneous bacterial peritonitis at this time. The fluid collected from her paracentesis site was sent for Gram stain many white cells were seen but no bacteria. Blood cultures have been obtained. Review of Systems Unobtainable due to mental status [facility] Medical History Advanced hepatic cirrhosis Hep C & ETOH Anxiety Atrial fibrillation with controlled ventricular rate Attention deficit hyperactivity disorder, combined type Cholestasis of Chronic hepatitis C CKD (chronic kidney disease) stage 4, GFR 15-29 ml/min COVID-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 Irritable colon Nephrotic syndrome Pleural effusion associated with hepatic disorder Renal failure syndrome Surgical History section x2 Hx of tubal ligation Family History Mother Hypertensive disorder, systemic arterial Father Hypertensive disorder, systemic arterial Social History Smoking/Tobacco Use Status: Former Tobacco Use Quit Date: 09/18/18 Alcohol Intake: former Drug use: Never Substance use type: does not use Do you feel safe at home: Yes Do you feel safe in your relationship?: Yes 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 Home Medications and Allergies Home Medications Medication Instructions Recorded Confirmed Type Xifaxan 550 mg PO BID 04/18/20 06/20/20 History famotidine 40 mg PO DAILY 04/18/20 06/20/20 History furosemide 80 mg PO DAILY 04/18/20 06/20/20 History lactulose 20 g PO TID 04/18/20 06/20/20 History nitroglycerin 0.4 mg SUBLINGUAL Q5M PRN 04/18/20 06/20/20 History spironolactone 50 mg PO DAILY 04/18/20 06/20/20 History magnesium 200 mg PO BID #60 tab 06/15/20 06/20/20 Rx metoprolol succinate 100 mg PO HS 06/15/20 06/20/20 History potassium chloride 20 meq PO DAILY 06/15/20 06/20/20 History Allergies Allergy/AdvReac Type Severity Reaction Status Date / Time amphetamine aspartate Allergy Severe Facial Unverified 06/20/20 12:29 [From Adderall] Swelling, Blisters, Tongue Swelling, Rash, amphetamine sulfate Allergy Severe Facial Unverified 06/20/20 12:29 [From Adderall] Swelling, Blisters, Tongue Swelling, Rash, dextroamphetamine saccharate Allergy Severe Facial Unverified 06/20/20 12:29 [From Adderall] Swelling, Blisters, Tongue Swelling, Rash, dextroamphetamine sulfate Allergy Severe Facial Unverified 06/20/20 12:29 [From Adderall] Swelling, Blisters, Tongue Swelling, Rash, Penicillins Allergy Intermediate Hives, Unverified 06/20/20 12:29 Rash, Tongue Swelling codeine AdvReac Mild Constipatio Unverified 06/20/20 12:29 n Exam Narrative Exam Narrative: Middle-age female who is oriented only to her name. HEENT is remarkable for dry mucous membranes as well as scleral icterus and jaundice of her skin. Neck veins are flat, carotid pulses are irregularly irregular but at a controlled rate no bruits. Lungs are clear to auscultation Heart is irregularly irregular Abdomen is obese soft nondistended normal active bowel sounds she would not allow me to do deep palpation to assess hepatosplenomegaly. Right lower qu adrant is draining clear yellow ascitic fluid from previous paracentesis site. Lower extremities without peripheral edema. Skin is jaundice. No cyanosis Neuro exam GCS 14 (E4, V4, M6), no facial symmetry no dysarthric speech. Pupils are equally round and reactive to direct and consensual light. No focal motor deficits with normal strength and range of motion both upper and lower extremities. Normal sensation to light touch. No asterixis. Results Labs Result diagrams: 06/20/20 12:47 06/20/20 12:47 Labs: Laboratory Results - last 24 hr 06/20/20 06/20/20 06/20/20 12:47 12:47 12:47 WBC RBC Hgb Hct MCV MCH MCHC RDW Plt Count MPV Immature Gran % Neutrophils % Lymphocytes % Monocytes % Eosinophils % Basophils % Nucleated RBC % Absolute Neutrophils Absolute Lymphocytes Absolute Monocytes Absolute Eosinophils Absolute Basophils PT 15.6 H INR 1.6 H VBG Lactate Sodium Potassium Chloride Carbon Dioxide Anion Gap BUN Creatinine Estimated GFR/1.73 m2 Glucose Calcium Magnesium Total Bilirubin AST ALT Alkaline Phosphatase Ammonia 103 H Troponin I < 0.05 Total Protein Albumin TSH 3.50 Ethyl Alcohol 4.1 06/20/20 06/20/20 06/20/20 12:47 12:47 12:47 WBC 5.00 RBC 2.94 L Hgb 10.0 L Hct 30.9 L MCV 105.1 H MCH 34.0 H MCHC 32.4 RDW 19.1 H Plt Count 108 L MPV 10.9 Immature Gran % 0.4 Neutrophils % 66.8 Lymphocytes % 19.4 Monocytes % 10.0 Eosinophils % 2.8 Basophils % 0.6 Nucleated RBC % 0 Absolute Neutrophils 3.34 Absolute Lymphocytes 0.97 L Absolute Monocytes 0.50 Absolute Eosinophils 0.14 Absolute Basophils 0.03 PT INR VBG Lactate 2.1 H* Sodium 139 Potassium 3.1 L Chloride 105 Carbon Dioxide 24.2 Anion Gap 9.8 BUN 51 H Creatinine 2.53 H Estimated GFR/1.73 m2 19.87 Glucose 105 Calcium 8.6 Magnesium 1.9 Total Bilirubin 4.5 H AST 38 H ALT 25 Alkaline Phosphatase 196 H Ammonia Troponin I Cancelled Total Protein 6.6 Albumin 3.1 L TSH Ethyl Alcohol Last Vital Signs Temp 35.8 C L 06/20/20 17:27 Pulse 75 06/20/20 17:05 Resp 16 06/20/20 17:27 BP 102/65 06/20/20 17:05 Pulse Ox 100 06/20/20 17:05 COVID-19 Screening Have you,or household,traveled outside [place] in last 14 days?: No Had IN PERSON contact w/suspected or confirmed C-19 person: No
[2020-06-20] MEDS: LORazepam 2 MG/ML VIAL 1 MG IVP (19:26)
[2020-06-20] MEDS: Normal Saline Flush 10 ML SYR IVP (19:28)
[2020-06-20] MEDS: Normal Saline Flush 10 ML SYR (19:30)
[2020-06-20 20:16] LABS: Bilirubin Negative (Negative); Blood Negative (Negative); Clarity Clear (Clear); Glucose Negative (Negative); Ketones Negative (Negative); Leukocyte Esterase Negative (Negative); Nitrite Negative (Negative); Urobilinogen 0.2 EU/dL (Up TO 0.2)
[2020-06-20 20:26] LABS: *AMPHETAMINES SCREEN URINE Negative (Negative); *BARBITURATES SCREEN URINE Negative (Negative); *BENZODIAZEPINES SCREEN URINE Negative (Negative); Cannabinoids THC Negative (Negative); Cocaine Screen,Urine Negative (Negative); METHADONE URINE SCREEN Negative (Negative); OPIATES URINE SCREEN Negative (Negative)
[2020-06-20 20:30] LABS: Tricyclic Antidepressants Negative (Negative)
[2020-06-20] MEDS: CIPROFLOXACIN 400 MG/200 ML BAG 200 MG IVPB (22:08)
--- NOTE | 2020-06-20 22:45 | DI.RAD_ITS ---
EXAM: XR PORTABLE CHEST AP POST LINE CLINICAL HISTORY: NG tube placement TECHNIQUE: COMPARISON: CR,XR XR PORTABLE CHEST AP POST LINE from 06/20/2020 CR,XR XR PORTABLE CHEST AP from 06/20/2020 FINDINGS: Portable chest films were obtained at 2305 hours and 2358 hours. Lungs are grossly clear but hypoinf lated. Cardiac size is upper limits of normal. An NG tube has been placed and appears to lie in the gastric fundus on both the 2300 hours film and t he 2358 hours. IMPRESSION: NG tube in place in the gastric fundus RADIATION DOSE DELIVERED: Total DLP
--- NOTE | 2020-06-20 23:25 | DI.VRAD_ITS ---
PROCEDURE INFORMATION: Exam: XR Chest, 1 View Exam date and time: 06/20/2020 11:05 PM Age: 55 years old Clinical indication: Device placement; Ng tube; Patient HX: Ng placement TECHNIQUE: Imaging protocol: XR of the chest Views: 1 view. COMPARISON: CR XR PORTABLE CHEST AP 06/20/2020 2:49 PM FINDINGS: Tubes, catheters and devices: NG tube tip overlies stomach. Lungs: No definite acute pulmonary infiltrate. Pleural space: Unremarkable. No pleural effusion. No pneumothorax. Heart/Mediastinum: Unremarkable. No cardiomegaly. Bones/joints: Scoliosis. IMPRESSION: No acute finding Dictated and Authenticated by: Tavo Ervin MD. Ordering:LUDWIG Thomason MD
[2020-06-21] VITALS (59 sets, daily range): BP systolic 82–118; BP diastolic 47–74; PULSE 64–111; RESP 11–25; TEMP 36–36.7; O2SAT 90–100
--- NOTE | 2020-06-21 00:15 | DI.VRAD_ITS ---
PROCEDURE INFORMATION: Exam: XR Chest, 1 View Exam date and time: 06/20/2020 11:53 PM Age: 55 years old Clinical indication: Device placement; Patient HX: Ng tube placement confirmation TECHNIQUE: Imaging protocol: XR of the chest Views: 1 view. COMPARISON: CR XR PORTABLE CHEST AP POST LINE 06/20/2020 10:56 PM FINDINGS: Tubes, catheters and devices: NG tube tip overlies stomach. Lungs: Unremarkable. No consolidation. Pleural space: Unremarkable. No pleural effusion. No pneumothorax. Heart/Mediastinum: Unremarkable. No cardiomegaly. Bones/joints: Unremarkable. IMPRESSION: No acute finding. Dictated and Authenticated by: Tavo Ervin MD. Ordering:LUDWIG Thomason MD
--- NOTE | 2020-06-21 00:30 | NUR.NOTE ---
Nursing Note: Paged MD r/t vague radiology report verbage for chest xray after NG tube placement. MD viewed image from home, states it is okay to use. then followed up with radiologist who read the reports and called this nurse back to confirm the NG tube placement is appropriate per the radiologist.
[2020-06-21] MEDS: Lactulose 20 GM/30 ML CUP NG ×5 (01:00→19:17)
[2020-06-21] MEDS: Magnesium Oxide 400 MG TAB 200 MG NG ×3 (01:00→19:15)
[2020-06-21] MEDS: Normal Saline Flush 10 ML SYR IVP ×2 (01:30→22:19)
[2020-06-21 07:06] LABS: Abs Immature Grans 0.01 10^3/uL (0.0-0.06); Absolute Basophil Count 0.04 10^3/uL (0.0-0.2); Absolute Eosinophil Count 0.12 10^3/uL (0.0-0.7); Absolute Lymphocyte Count 0.83 10^3/uL (1.2-3.4); Absolute Monocyte Count 0.47 10^3/uL (0.1-0.8); Absolute Neutrophil Count 2.14 10^3/uL (1.2-6.7); Basophils % 1.1; Eosinophils % 3.3; HCT 26.6 % (36.0-46.0); HGB 8.8 g/dL (11.2-15.7); Immature Grans % 0.3; MCH 34.2 pg (27.0-33.0); MCHC 33.1 % (32.0-36.0); MCV 103.5 fL (80-95); MPV 10.6 fL (8.0-11.0); Neutrophils % 59.3; Nucleated RBC 0 %; RBC 2.57 10^6/uL (3.93-5.22); RDW-SD 72.4 fL; WBC 3.61 10^3/uL (4.4-10.8)
[2020-06-21 07:46] LABS: Ammonia 53 umol/L (11-32)
[2020-06-21] MEDS: Famotidine 20 MG TAB 40 MG NG (07:48)
[2020-06-21] MEDS: Rifaximin 550 MG TAB NG ×2 (07:48→19:16)
[2020-06-21 07:52] LABS: ALT 20 U/L (14-59); AST 36 U/L (15-37); Albumin 2.4 g/dL (3.4-5.0); Alkaline Phosphatase 105 U/L (46-116); Anion Gap 10.3 mmol/L (3-11); BUN 45 mg/dL (7-18); CO2 23.7 mmol/L (21.0-32.0); CREATININE 2.16 mg/dL (0.55-1.02); Calcium 8.4 mg/dL (8.5-10.1); Chloride 109 mmol/L (98-107); Diff Comment PLT Morph Reviewed; Estimated GFR 23.85 (mL/min/1.73m2); Glucose 83 mg/dL (74-106); Platelet Count 71 10^3/uL (130-400); Potassium 3.5 mmol/L (3.5-5.1); Sodium 143 mmol/L (136-145); Total Protein 5.3 g/dL (6.4-8.2)
[2020-06-21 07:53] LABS: Anisocytosis 2+; Macrocytosis 2+
[2020-06-21 07:54] LABS: Poikilocytes 2+
[2020-06-21 07:55] LABS: Bilirubin, Total 5.1 mg/dL (0.2-1.0)
[2020-06-21] MEDS: Potassium Chloride Liquid 20 MEQ PKT PO (08:07)
--- NOTE | 2020-06-21 08:43 | PDOC.CMIN ---
- If Service Date Differs Date of service: 06/21/20 Time of Service: 08:43 Care Management Initial Assess REASON FOR HOSPITALIZATION:: Hepatic encephalopathy. PAST MEDICAL HISTORY/PAST SURGICAL HISTORY:: Medical History: Advanced hepatic cirrhosis - Hep C & ETOH, Anxiety,. Atrial fibrillation with controlled ventricular rate, Attention deficit hyperactivity disorder, combined type, Cholestasis of , Chronic hepatitis C, CKD (chronic kidney disease) stage 4, GFR 15-29 ml/min,. COVID-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, Irritable colon, Nephrotic syndrome, Pleural effusion associated with hepatic disorder, and Renal failure syndrome. Surgical History: section x2 and Hx of tubal ligation. PREVIOUS FUNCTIONAL STATUS/SOCIAL/FAMILY SUPPORTS:: Erin resides in [place] with her , Isaac. 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 Erin drives and is independent at baseline. CURRENT FUNCTIONAL STATUS:: CM unable to meet with Erin due to pending Covid-19 test results. CM attempted to reach her by phone but there was no answer. CM will continue to follow. ADVANCE DIRECTIVES:: None on file. Has patient been provided with info about the portal/API?: No Did the patient sign up for the portal?: No CODE STATUS:: Full Code INSURANCE COVERAGE / FINANCIAL ISSUES:: Medicare and Medicaid. CURRENT HOME/COMMUNITY SERVICES/EQUIPMENT:: Unknown, unable to meet with patient. PRIMARY CARE PHYSICIAN:: Ling Pepe. POTENTIAL DISCHARGE NEEDS:: Follow up appointments with PCP, surgeon, [facility] providers, and discharge plan of care. PATIENT/FAMILY EDUCATION NEEDS:: Discharge instructions, limitations, follow up plan of care, including Ask Me Three and self management. ANTICIPATED BARRIERS TO DISCHARGE:: None. TRANSPORTATION:: Via private vehicle with vs. RCT coordinated by CM. PLAN:: Anticipate Erin will be discharged home when medically cleared by provider. She will follow up with her PCP, surgeon, [facility] providers, and plan of care as directed. CM will continue to support patient and discharge planning needs.
--- NOTE | 2020-06-21 08:45 | RT.EKG_ITS ---
APPROVED REPORT Exam: Resting ECG Patient Location: I HR:90 bpm ECG Measurements Heart Rate 90 AXIS WI [id number] P [id number] QRSd 102 QRS 56 QT 440 T [id number] QTc 538 Conclusion Atrial fibrillation...V-rate 68-103, irreg A-activity Ventricular premature complex...V complex w/ short R-R interval Low voltage, extremity and precordial leads...extremity<0.5mV, precordial<1.0mV Prolonged QT interval...QTc >510mS
--- NOTE | 2020-06-21 08:55 | W.PM.PROGNOT ---
Date of Service Date of service: 06/21/20 Time of Service: 08:55 Assessment and Plan Assessment and plan (1) Acute hepatic encephalopathy: Status: Acute Assessment and plan: Patient is improving in her encephalopathy. Patient was given a trial of oral liquids this morning in my presence. Patient had some coughing and choking spells therefore we withheld oral feedings this morning. By this afternoon patient was able to tolerate clear liquids and her NG was discontinued. She will continue on her rifaximin 550 mg p.o. twice daily along with her lactulose 20 g p.o. 4 times daily (2) CKD (chronic kidney disease) stage 4, GFR 15-29 ml/min: Status: Acute Assessment and plan: BUN and creatinine are improving. BUN is down to 45 creatinine 2.16. Patient is receiving IV fluids which at this point we can probably discontinue now that she is tolerating oral liquids. I will continue to hold her diuretics until tomorrow morning. (3) Prerenal azotemia: Status: Acute Assessment and plan: As above (4) Hypokalemia: Status: Acute Assessment and plan: Resolved with IV and oral supplementation. Potassium is up to 3.5. We will continue to monitor. (5) Cardiomyopathy: Status: Active Assessment and plan: Patient receiving IV Lopressor while she was n.p.o. last night. We can switch her over back to her oral Toprol-XL. We will resume her diuretics in the morning and discontinue IV fluids at this point (6) Atrial fibrillation with controlled ventricular rate: Status: Acute Assessment and plan: Continue telemetry monitoring. Continue Toprol-XL.Not a candidate for anticoagulation due to her severe liver disease (7) Viral hepatitis C: Status: Active Assessment and plan: Continue her Epclusa (8) DVT prophylaxis: Status: Acute Assessment and plan: SCD and LITZY hoses only. No heparin in light of her thrombocytopenia and cirrhosis. Subjective Subjective Interval history since last seen: Patient is more alert today although she remains oriented only to person and place. She thought it was July and could not give me the correct year. Her only request is to return home. She does not seem to understand that she is still encephalopathic. Azotemia is improved and that her BUN is down to 45 and creatinine is 2.16. Her ammonia is down to 53. And her hypokalemia has been corrected is now 3.5. She did require an NG placement last night in order to get her lactulose down her. We attempted a bedside swallow with water and she had some coughing spells afterwards were get a hold off on any feedings for now. We will continue to give her her medications through her NG. Since last night she has had short bouts of ventricular tachycardia versus aberrant conduction of her A. fib. These have been brief and nonsustained lasting several beats long. I repeated her EKG this morning and this shows atrial fibrillation at a rate of 90 bpm with a nonspecific intraventricular conduction delay. There is isolated PVCs. No acute ischemic ST or T wave changes. I will check a troponin level although it was normal on admission. Exam Narrative Exam Narrative: Middle-age female who appears much older than her stated age of 55. She is awake alert And oriented to place but not to time or circumstance. HEENT is remarkable for scleral icterus and jaundice of the skin. Lungs are clear to auscultation Heart regular rate and rhythm. Abdomen soft nontender with ascitic fluid wave. Right lower quadrant has a previous paracentesis site that still draining clear yellow ascitic fluid. Lower extremities without peripheral edema Objective Last Vital Signs Temp 36.6 C 06/21/20 07:30 Pulse 74 06/21/20 07:01 Resp 15 06/21/20 07:01 BP 114/68 06/21/20 07:01 Pulse Ox 96 06/21/20 07:30 Laboratory Results - last 24 hr 06/20/20 06/20/20 06/20/20 12:47 12:47 12:47 WBC RBC Hgb Hct MCV MCH MCHC RDW Plt Count MPV Immature Gran % Neutrophils % Lymphocytes % Monocytes % Eosinophils % Basophils % Nucleated RBC % Absolute Neutrophils Absolute Lymphocytes Absolute Monocytes Absolute Eosinophils Absolute Basophils RBC Morphology Poikilocytosis Anisocytosis Macrocytosis PT 15.6 H INR 1.6 H VBG Lactate Sodium Potassium Chloride Carbon Dioxide Anion Gap BUN Creatinine Estimated GFR/1.73 m2 Glucose Calcium Magnesium Total Bilirubin AST ALT Alkaline Phosphatase Ammonia 103 H Troponin I < 0.05 Total Protein Albumin TSH 3.50 Urine Color Urine Clarity Urine pH Ur Specific [place] Urine Protein Urine Ketones Urine Blood Urine Nitrite Urine Bilirubin Urine Urobilinogen Ur Leukocyte Esterase Urine Glucose Urine Opiates Screen Urine Methadone Screen Ur Barbiturates Screen Ur Tricyclics Screen Ur Amphetamines Screen U Benzodiazepines Scrn Urine Cocaine Screen Ur THC Screen Ethyl Alcohol 4.1 06/20/20 06/20/20 06/20/20 12:47 12:47 12:47 WBC 5.00 RBC 2.94 L Hgb 10.0 L Hct 30.9 L MCV 105.1 H MCH 34.0 H MCHC 32.4 RDW 19.1 H Plt Count 108 L MPV 10.9 Immature Gran % 0.4 Neutrophils % 66.8 Lymphocytes % 19.4 Monocytes % 10.0 Eosinophils % 2.8 Basophils % 0.6 Nucleated RBC % 0 Absolute Neutrophils 3.34 Absolute Lymphocytes 0.97 L Absolute Monocytes 0.50 Absolute Eosinophils 0.14 Absolute Basophils 0.03 RBC Morphology Poikilocytosis Anisocytosis Macrocytosis PT INR VBG Lactate 2.1 H* Sodium 139 Potassium 3.1 L Chloride 105 Carbon Dioxide 24.2 Anion Gap 9.8 BUN 51 H Creatinine 2.53 H Estimated GFR/1.73 m2 19.87 Glucose 105 Calcium 8.6 Magnesium 1.9 Total Bilirubin 4.5 H AST 38 H ALT 25 Alkaline Phosphatase 196 H Ammonia Troponin I Cancelled Total Protein 6.6 Albumin 3.1 L TSH Urine Color Urine Clarity Urine pH Ur Specific [place] Urine Protein Urine Ketones Urine Blood Urine Nitrite Urine Bilirubin Urine Urobilinogen Ur Leukocyte Esterase Urine Glucose Urine Opiates Screen Urine Methadone Screen Ur Barbiturates Screen Ur Tricyclics Screen Ur Amphetamines Screen U Benzodiazepines Scrn Urine Cocaine Screen Ur THC Screen Ethyl Alcohol 06/20/20 06/20/20 06/21/20 20:00 20:00 06:46 WBC RBC Hgb Hct MCV MCH MCHC RDW Plt Count MPV Immature Gran % Neutrophils % Lymphocytes % Monocytes % Eosinophils % Basophils % Nucleated RBC % Absolute Neutrophils Absolute Lymphocytes Absolute Monocytes Absolute Eosinophils Absolute Basophils RBC Morphology Poikilocytosis Anisocytosis Macrocytosis PT INR VBG Lactate Sodium 143 Potassium 3.5 Chloride 109 H Carbon Dioxide 23.7 Anion Gap 10.3 BUN 45 H Creatinine 2.16 H Estimated GFR/1.73 m2 23.85 Glucose 83 Calcium 8.4 L Magnesium Total Bilirubin 5.1 H AST 36 ALT 20 Alkaline Phosphatase 105 Ammonia Troponin I Total Protein 5.3 L Albumin 2.4 L TSH Urine Color Yellow Urine Clarity Clear Urine pH 6.0 Ur Specific [place] 1.010 Urine Protein Negative Urine Ketones Negative Urine Blood Negative Urine Nitrite Negative Urine Bilirubin Negative Urine Urobilinogen 0.2 Ur Leukocyte Esterase Negative Urine Glucose Negative Urine Opiates Screen Negative Urine Methadone Screen Negative Ur Barbiturates Screen Negative Ur Tricyclics Screen Negative Ur Amphetamines Screen Negative U Benzodiazepines Scrn Negative Urine Cocaine Screen Negative Ur THC Screen Negative Ethyl Alcohol 06/21/20 06/21/20 06:46 06:46 WBC 3.61 L RBC 2.57 L Hgb 8.8 L Hct 26.6 L MCV 103.5 H MCH 34.2 H MCHC 33.1 RDW 19.0 H Plt Count 71 L MPV 10.6 Immature Gran % 0.3 Neutrophils % 59.3 Lymphocytes % 23.0 Monocytes % 13.0 Eosinophils % 3.3 Basophils % 1.1 Nucleated RBC % 0 Absolute Neutrophils 2.14 Absolute Lymphocytes 0.83 L Absolute Monocytes 0.47 Absolute Eosinophils 0.12 Absolute Basophils 0.04 RBC Morphology See below Poikilocytosis 2+ Anisocytosis 2+ Macrocytosis 2+ PT INR VBG Lactate Sodium Potassium Chloride Carbon Dioxide Anion Gap BUN Creatinine Estimated GFR/1.73 m2 Glucose Calcium Magnesium Total Bilirubin AST ALT Alkaline Phosphatase Ammonia 53 H Troponin I Total Protein Albumin TSH Urine Color Urine Clarity Urine pH Ur Specific [place] Urine Protein Urine Ketones Urine Blood Urine Nitrite Urine Bilirubin Urine Urobilinogen Ur Leukocyte Esterase Urine Glucose Urine Opiates Screen Urine Methadone Screen Ur Barbiturates Screen Ur Tricyclics Screen Ur Amphetamines Screen U Benzodiazepines Scrn Urine Cocaine Screen Ur THC Screen Ethyl Alcohol
[2020-06-21 09:24] LABS: Lactate 1.5 mmol/L (0.6-1.4)
[2020-06-21 09:46] LABS: Troponin I < 0.05 ng/mL (<0.06)
[2020-06-21] MEDS: POTASSIUM CHLORIDE/0.45% NACL 1,000 ML 75 MEQ IV (09:49)
--- NOTE | 2020-06-21 10:22 | PHA.REVIEW ---
Pharmacy Admission Review - Admission Clinical Review (Last Reviewed 06/20/20 @ 19:14 by Hamilton Alfonso) DVT prophylaxis (Acute) Prerenal azotemia (Acute) Acute hepatic encephalopathy (Acute) Creatinine elevation (Acute) Hypokalemia (Acute) Atrial fibrillation with controlled ventricular rate (Acute) CKD (chronic kidney disease) stage 4, GFR 15-29 ml/min (Acute) Cardiomyopathy (Active 04/22/13) Viral hepatitis C (Active) amphetamine aspartate [From Adderall] Allergy (Severe, Unverified 06/20/20 12:29) Facial Swelling, Blisters, Tongue Swelling, Rash, amphetamine sulfate [From Adderall] Allergy (Severe, Unverified 06/20/20 12:29) Facial Swelling, Blisters, Tongue Swelling, Rash, dextroamphetamine saccharate [From Adderall] Allergy (Severe, Unverified 06/20/20 12:29) Facial Swelling, Blisters, Tongue Swelling, Rash, dextroamphetamine sulfate [From Adderall] Allergy (Severe, Unverified 06/20/20 12:29) Facial Swelling, Blisters, Tongue Swelling, Rash, Penicillins Allergy (Intermediate, Unverified 06/20/20 12:29) Hives, Rash, Tongue Swelling codeine Adverse Reaction (Mild, Unverified 06/20/20 12:29) Constipation Height 5 ft 7 in Weight 86 kg - Renal Dosing Renal Dosing: BUN 45 mg/dL (7-18) H 06/21/20 06:46 Creatinine 2.16 mg/dL (0.55-1.02) H 06/21/20 06:46 Medications needing adjustments: Intervened (Crcl ~29.2 mL/min. Talked to provider about famotidine dosing, dosing renally adjusted. Current meds okay.) - Anticoagulation Anticoagulation: Hgb 8.8 g/dL (11.2-15.7) L 06/21/20 06:46 Hct 26.6 % (36.0-46.0) L 06/21/20 06:46 Plt Count 71 10^3/uL (130-400) L 06/21/20 06:46 INR 1.6 (0.9-1.1) H 06/20/20 12:47 Creatinine 2.16 mg/dL (0.55-1.02) H 06/21/20 06:46 DVT Prohphylaxis: Reviewed (SCDs and LITZY only, no heparin in light of thrombocytopenia and cirrhosis per H&P.) Therapeutic Anticoagulation: N/A - Opiate Usage Evaluate Pain Scale/Pains Meds: Reviewed - Relevant Labs Sodium 143 mmol/L (136-145) 06/21/20 06:46 Potassium 3.5 mmol/L (3.5-5.1) 06/21/20 06:46 Chloride 109 mmol/L (98-107) H 06/21/20 06:46 Magnesium 1.9 mg/dL (1.8-2.4) 06/20/20 12:47 Electrolytes, C-Reactive P, ESR: Reviewed (K+ improved since admission, IV replacement given yesterday, has PO replacement ordered BID) - DM Control DM Control: Glucose 83 mg/dL (74-106) 06/21/20 06:46 Insulin Dosing: N/A - Heart Failure/AZ Heart Failure/AZ: Troponin I < 0.05 ng/mL (<0.06) 06/21/20 09:19 EF%, MATTHEW's, B-Blockers, Diuretics: N/A - BP Control BP Control: Blood Pressure 104/72 Blood Pressure 100/64 Blood Pressure 109/66 Blood Pressure 110/74 Blood Pressure 105/65 Blood Pressure 114/68 Blood Pressure 98/58 If elevated: Reviewed (elevated on admission, low to normal since then) - Qtc Review If Elevated: Reviewed (QTc 479 on admission, EKG report from today not yet available. Has ciprofloxacin ordered.) - IV to PO Switch IV Medications: Reviewed - Home Meds Home Med List reviewed: Reviewed Relevent Home Meds Not ordered & why?: furosemide, spironolactone - Current meds Current Medication Order Review: Intervened (Discontinued duplicate med orders. Pt has Epclusa entered as pts own med, there is only one more tablet left in the bottle for tonights dose. Provider and nursing aware, working on getting more brought in by family.) - Comments Comments/Follow Ups: Watch BP, mag, K+, H/H, plt, SCr, QTc, for culture results, and for med changes (NG/IV to PO pending pts status, home meds, renal dose adjustments, possible VTE prophylaxis, QT prolonging meds). Antibiotic Activity - Pharmacy Antibiotic Review Pharmacy Antibiotic Activity: Reviewed, no change (cipro ordered empirically, blood and peritoneal cultures pending)
[2020-06-21 13:52] LABS: Troponin I < 0.05 ng/mL (<0.06)
[2020-06-21] MEDS: CIPROFLOXACIN 400 MG/200 ML BAG 200 MG IVPB (19:19)
[2020-06-21] MEDS: Metoprolol CR 100 MG TABCR PO (19:34)
[2020-06-21 20:59] LABS: COVID-19 RT-PCR UVMMC Result Negative (Negative)
[2020-06-22] VITALS (29 sets, daily range): BP systolic 89–132; BP diastolic 47–110; PULSE 64–94; RESP 11–20; TEMP 36.2–37.1; O2SAT 92–100
[2020-06-22 06:31] LABS: Ammonia 118 umol/L (11-32)
[2020-06-22 06:36] LABS: HCT 24.7 % (36.0-46.0); HGB 8.1 g/dL (11.2-15.7); MCH 33.9 pg (27.0-33.0); MCHC 32.8 % (32.0-36.0); MCV 103.3 fL (80-95); MPV 10.6 fL (8.0-11.0); RBC 2.39 10^6/uL (3.93-5.22); RDW-SD 72.2 fL; WBC 4.56 10^3/uL (4.4-10.8)
[2020-06-22 06:51] LABS: ALT 18 U/L (14-59); AST 29 U/L (15-37); Albumin 2.2 g/dL (3.4-5.0); Alkaline Phosphatase 113 U/L (46-116); Anion Gap 7.7 mmol/L (3-11); BUN 43 mg/dL (7-18); Bilirubin, Total 3.5 mg/dL (0.2-1.0); CO2 24.3 mmol/L (21.0-32.0); CREATININE 2.18 mg/dL (0.55-1.02); Calcium 8.2 mg/dL (8.5-10.1); Chloride 109 mmol/L (98-107); Glucose 107 mg/dL (74-106); Potassium 3.5 mmol/L (3.5-5.1); Sodium 141 mmol/L (136-145); Total Protein 5.1 g/dL (6.4-8.2)
[2020-06-22 07:14] LABS: Platelet Count 79 10^3/uL (130-400)
[2020-06-22] MEDS: Lactulose 20 GM/30 ML CUP NG (08:37)
[2020-06-22] MEDS: Rifaximin 550 MG TAB NG (08:37)
[2020-06-22] MEDS: Magnesium Oxide 400 MG TAB 200 MG NG (08:37)
--- NOTE | 2020-06-22 11:34 | W.PM.PROGNOT ---
Date of Service Date of service: 06/22/20 Time of Service: 09:15 Assessment and Plan Assessment and plan (1) Acute hepatic encephalopathy: Status: Acute Assessment and plan: Patient is more somnolent today. I am can increase her lactulose to 20 g p.o. every 4 hours until she starts having at least 3 soft bowel movements a day. Continue with her rifaximin. If she is not able to tolerate oral then we will place an NG (2) CKD (chronic kidney disease) stage 4, GFR 15-29 ml/min: Status: Acute Assessment and plan: Stable electrolytes and improving BUN and creatinine. Because she is taken poor oral intake I will restart IV fluids. Continue to hold her diuretics at this time. (3) Prerenal azotemia: Status: Acute Assessment and plan: As above (4) Hypokalemia: Status: Acute Assessment and plan: Resolved with IV and oral supplementation. Potassium is up to 3.5. We will continue to monitor. (5) Cardiomyopathy: Status: Active Assessment and plan: Patient is now back on her Toprol-XL. Diuretics remain on hold. (6) Atrial fibrillation with controlled ventricular rate: Status: Acute Assessment and plan: Continue telemetry monitoring. Continue Toprol-XL.Not a candidate for anticoagulation due to her severe liver disease (7) Viral hepatitis C: Status: Active Assessment and plan: Continue her Epclusa (8) DVT prophylaxis: Status: Acute Assessment and plan: SCD and LITZY hoses only. No heparin in light of her thrombocytopenia and cirrhosis. Subjective Subjective Interval history since last seen: Patient is more somnolent this morning. However she is able to be aroused and able to take her medications orally. Her ammonia level is higher today at 118. Her potassium has been corrected to 3.5 and her prerenal azotemia has improved with a BUN of 43 and creatinine 2.18. Because of her somnolence she is not taking in adequate fluids and therefore I have reordered her IV. Her diuretics are still on hold and she is now developing some increased ascites. Her previous paracentesis site at the right lower quadrant is draining clear yellow ascitic fluid but not enough drainage to prevent increased abdominal distention from ascites. Otherwise her vital signs been stable and she has had no recurrent wide-complex tachycardia. Rhythm remains in atrial fibrillation at a controlled rate. Exam Narrative Exam Narrative: Middle-age female appears much older than her stated age. She is lying in bed in semi-sharp position. She is somnolent but arousable by calling her name or tactile stimulation. She is oriented only to person but not to place or circumstance. HEENT is remarkable for scleral icterus and dry oral mucous membranes. Lungs are clear to auscultation anteriorly posteriorly she has diminished breath sounds at the bases without rhonchi or wheezes or rales. Heart is irregularly irregular but a controlled rate. Abdomen is distended but soft with increasing ascites positive fluid wave in right lower quadrant with previous paracentesis site has a collection bag attached to the skin and is draining clear yellow ascitic fluid. Objective Last Vital Signs Temp 36.7 C 06/21/20 15:55 Pulse 76 06/22/20 08:01 Resp 18 06/22/20 08:01 BP 103/70 06/22/20 08:01 Pulse Ox 96 06/22/20 07:55 Laboratory Results - last 24 hr 06/20/20 06/21/20 06/22/20 16:00 13:20 06:12 WBC RBC Hgb Hct MCV MCH MCHC RDW Plt Count MPV Sodium 141 Potassium 3.5 Chloride 109 H Carbon Dioxide 24.3 Anion Gap 7.7 BUN 43 H Creatinine 2.18 H Estimated GFR/1.73 m2 23.60 Glucose 107 H Calcium 8.2 L Total Bilirubin 3.5 H AST 29 ALT 18 Alkaline Phosphatase 113 Ammonia Troponin I < 0.05 Total Protein 5.1 L Albumin 2.2 L COVID-19 PCR Negative Nasopharyn COVID-19 PCR Not Applicable Ref Test Perform Site [place] [facility] 06/22/20 06/22/20 06:12 06:12 WBC 4.56 RBC 2.39 L Hgb 8.1 L Hct 24.7 L MCV 103.3 H MCH 33.9 H MCHC 32.8 RDW 19.0 H Plt Count 79 L MPV 10.6 Sodium Potassium Chloride Carbon Dioxide Anion Gap BUN Creatinine Estimated GFR/1.73 m2 Glucose Calcium Total Bilirubin AST ALT Alkaline Phosphatase Ammonia 118 H Troponin I Total Protein Albumin COVID-19 PCR Nasopharyn COVID-19 PCR Ref Test Perform Site
[2020-06-22] MEDS: Lactulose 20 GM/30 ML CUP PO ×3 (11:55→19:35)
--- NOTE | 2020-06-22 13:39 | W.NUTCONSULT ---
Date of service: 06/22/20 Time of Service: 13:39 Nutritional Consult ASSESSMENT: 55 year old female admitted with hepatic encephalopathy with toxic liver disease with ETOH cirrohosis and Hep. C with CKD and renal failure. Labs reviewed, with elevated ammonia levels, depleted albumin as expected. Had paracentesis on 06/15/20. Has left AMA multiple times in last year. Family reports that pt has stopped taking lactulous as multiple BM daily was inconvenient. Weight has fluctuated from 178-213 lbs in last 6 months and due to fluid build up and subsequent paracentesis. Attempted to meet with pt today, too sleeping to talk. Following Low Sodium diet with good intake per nursing. Estimated Needs: [id number] kcal, 60-70 g protein, 1500 ml fluid. NUTRITIONAL DIAGNOSIS: Impaired Nutrient Utilization due to end stage liver disease INTERVENTION: Low Sodium Diet 1500 ml fluid restriction MONITORING AND EVALUATION: will monitor po intake, labs, weight Time Spent in Nutritional Counseling and Treatment: 0 time spent face to face
--- NOTE | 2020-06-22 14:27 | PDOC.CMPRO ---
- If Service Date Differs Date of service: 06/22/20 Time of Service: 14:27 Care Management Progress Note S/O: Erin was lying in bed when CM met with her. She was not engaged in conversation, as she stated that she was very sleepy and her eyes were closed during the conversation. CM attempted to speak with her several times, with no success. CM asked provider for Palliative consult, given her status. Provider stated that the consult would not be placed at this time, until the pt and/or would be willing to meet with Palliative care. CM will continue to follow. A: Erin is a 55 year old female admitted to [facility] on 06/20/20 with hepatic encephalopathy. P: Erin continues to be treated and monitored in the ICU. She may need a paracentesis during this admission; surgery has been consulted. She will likely return home once medically cleared with a resumption of RN. Additional services and support in the home may be indicated, evaluations will be made to determine what Erin will qualify for and accept. Her will transport her home via private vehicle when ready. She will follow up with her PCP and discharge plan of care. CM will continue to follow.
--- NOTE | 2020-06-22 14:50 | W.SURGCON ---
Date of service: 06/22/20 Time of Service: 14:50 Assessment and Plan Assessment and plan (1) Acute hepatic encephalopathy: Status: Acute (2) Advanced hepatic cirrhosis: Status: Acute (3) Abdominal ascites: Status: Acute Assessment and plan: A\\ 55 year old female with known cirrhosis who was admitted with acute encephalopathy. Patient is still pretty obtunded. Patient is not complaining of any pain. P\\ When patient is more alert, if she is complaining of early satiety or abdominal pain we can do a paracenthesis. Please let us know. Qualifiers: Ascites type: other type Qualified Code(s): R18.8 - Other ascites History of Present Illness History of Present Illness Chief Complaint: Ascitis Narrative: 55-year-old female with a history of hepatitis C and cirrhosis and hepatic encephalopathy, non-ischemic cardiomyopathy, atrial fibrillation and ascites who presented with acute delirium of 1 day onset on 06/20/2020. There had been no associated fever or rigors or abdominal pain. Patient has known hepatic encephalopathy whenever she cuts back on her lactulose. According to her she has not been having as frequent of bowel movements. He thinks that she cut back on her lactulose because she was having 5 or 6 loose bowel movements per day. Her acute confusion began the morning of admission. Evaluation in the emergency department included routine labs and subsequently she underwent a CT scan of her head without contrast. CBC demonstrated a stable chronic anemia with a hemoglobin of 10 g, macrocytosis with MCV of 105, Leukocyte 5000 and a stable thrombocytopenia with platelet count of 108,000. CMP demonstrated chronic renal insufficiency with elevated BUN and creatinine of 51 and 2.53 and hypokalemia 3.1. Magnesium was normal at 1.9. LFTs are elevated with a total bilirubin of 4.5 and elevated alkaline phosphatase of 196 and elevated ammonia level of 103. Albumin levels low at 3.1. CT scan of the head was performed and V rad reading is suggesting some asymmetric effacement of the posterior right sylvian fissure in the right temporal lobe and effacement of sulci in the supratentorial brain above the level of ventricles with no evidence of intra-axial hemorrhage. No midline shift. No extra-axial fluid collection. Ventricles are nondilated. Impression of the radiologist is that this was a limited exam due to motion artifact but there is asymmetric fullness in the posterior right sylvian fissure which could be mass-effect or edema then acute or subacute ischemia or underlying edema due to encephalopathy or cerebritis cannot be excluded. Patient was admitted to the ICU for evaluation and treatment of acute delirium due to probable exacerbation of hepatic encephalopathy. Patient was given a dose of her lactulose in the emergency department. She was given her rifaximin as well as further dose of lactulose until she has 3-4 loose bowel movements per day and her ammonia level declines. Patient has had several paracenthesis in the past. I was asked to see the patient for consideration of another paracenthesis. She is currently draining clear, light fluid from her previous puncture site. The fluid was sent for culture and was negative for bacteria or WBC. Patient is still pretty obtunded. NG tube is being placed again so she can be given her lactulose. She is not complaining of abdominal pain when she wakes. Consults Consult date: 06/22/20 Requesting physician: Hamilton Alfonso Review of Systems Unobtainable due to mental status PFSH Medical History Advanced hepatic cirrhosis Hep C & ETOH Anxiety Atrial fibrillation with controlled ventricular rate Attention deficit hyperactivity disorder, combined type Cholestasis of Chronic hepatitis C CKD (chronic kidney disease) stage 4, GFR 15-29 ml/min COVID-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 Irritable colon Nephrotic syndrome Pleural effusion associated with hepatic disorder Renal failure syndrome Surgical History section x2 Hx of tubal ligation Family History Mother Hypertensive disorder, systemic arterial Father Hypertensive disorder, systemic arterial Social History Smoking/Tobacco Use Status: Former Tobacco Use Quit Date: 09/18/18 Alcohol Intake: former Drug use: Never Substance use type: does not use Do you feel safe at home: Yes Do you feel safe in your relationship?: Yes 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 Const General: ill appearing and lethargic Orientation: obtunded HENMT Head: normocephalic and atraumatic Eyes Conjunctivae: conjunctival abnormality bilaterally conjunctival icterus Resp Effort & Inspection: normal respiratory effort GI Palpation: soft, hepatomegaly, nontender and ascites Results Last Vital Signs Temp 98.2 F 06/22/20 13:15 Pulse 76 06/22/20 08:01 Resp 18 06/22/20 08:01 BP 103/70 06/22/20 08:01 Pulse Ox 98 06/22/20 13:15 Labs Result diagrams: 06/22/20 06:12 06/22/20 06:12 Labs: Laboratory Results - last 24 hr 06/20/20 06/22/20 06/22/20 16:00 06:12 06:12 WBC RBC Hgb Hct MCV MCH MCHC RDW Plt Count MPV Sodium 141 Potassium 3.5 Chloride 109 H Carbon Dioxide 24.3 Anion Gap 7.7 BUN 43 H Creatinine 2.18 H Estimated GFR/1.73 m2 23.60 Glucose 107 H Calcium 8.2 L Total Bilirubin 3.5 H AST 29 ALT 18 Alkaline Phosphatase 113 Ammonia 118 H Total Protein 5.1 L Albumin 2.2 L COVID-19 PCR Negative Nasopharyn COVID-19 PCR Not Applicable Ref Test Perform Site [place] [facility] 06/22/20 06:12 WBC 4.56 RBC 2.39 L Hgb 8.1 L Hct 24.7 L MCV 103.3 H MCH 33.9 H MCHC 32.8 RDW 19.0 H Plt Count 79 L MPV 10.6 Sodium Potassium Chloride Carbon Dioxide Anion Gap BUN Creatinine Estimated GFR/1.73 m2 Glucose Calcium Total Bilirubin AST ALT Alkaline Phosphatase Ammonia Total Protein Albumin COVID-19 PCR Nasopharyn COVID-19 PCR Ref Test Perform Site
[2020-06-22] MEDS: Thrombin 5,000 UNITS VIAL 5000 UNITS TP (15:51)
--- NOTE | 2020-06-22 16:15 | DI.RAD_ITS ---
EXAM: XR PORTABLE CHEST AP POST LINE CLINICAL HISTORY: Verify placement of the NG tube TECHNIQUE: COMPARISON: CR,XR XR PORTABLE CHEST AP POST LINE from 06/20/2020 FINDINGS: Supine AP chest 1635 hours. There is an NG tube the tip of which appears to lie in the gastric fundu s. Left lung is appear. Right lung is obscured to some degree suggesting presence of right pleural effusion. PA and lateral chest or chest CT may be obtained for further evaluation. IMPRESSION: RADIATION DOSE DELIVERED: Total DLP
--- NOTE | 2020-06-22 17:07 | DI.VRAD_ITS ---
PROCEDURE INFORMATION: Exam: XR Chest, 1 View Exam date and time: 06/22/2020 4:41 PM Age: 55 years old Clinical indication: Device placement; Ng tube TECHNIQUE: Imaging protocol: XR of the chest Views: 1 view. COMPARISON: CR XR PORTABLE CHEST AP POST LINE 06/20/2020 11:45 PM FINDINGS: Tubes, catheters and devices: NG tube ends in the mid stomach. Lungs: Increased grade this of the right lung suggestive of right pleural effusion. Pleural space: Unremarkable. No pleural effusion. No pneumothorax. Heart/Mediastinum: Unremarkable. No cardiomegaly. Bones/joints: Unremarkable. IMPRESSION: Increased grade this of the right lung suggestive of right pleural effusion. NG tube ends in the mid stomach. Dictated and Authenticated by: Rivka Thomson MD. Ordering:[facility] Kaden Villasenor MD
[2020-06-22] MEDS: Magnesium Oxide 400 MG TAB 200 MG PO (19:35)
[2020-06-22] MEDS: Potassium Chloride Liquid 20 MEQ PKT PO (19:35)
[2020-06-22] MEDS: Rifaximin 550 MG TAB PO (19:50)
--- NOTE | 2020-06-22 21:25 | NUR.NOTE ---
pt had huge soft diaz bm in bed following her lactulose. complete bath and linen change done.
--- NOTE | 2020-06-22 21:28 | NUR.NOTE ---
pt trying to climb OOB. Assisted back to bed . reminded of where she is. pt able to tell us wherfe she is. unaware of time
[2020-06-22] MEDS: Metoprolol CR 100 MG TABCR PO (21:57)
--- NOTE | 2020-06-22 22:16 | NUR.NOTE ---
pt continously pulling at ng tube. reminded not to touch tube frequently. States she is tired and wants to go to bed. Reminded that she is in bed and it is night time so she can sleep. Settles down for short periods.
[2020-06-23] VITALS: PULSE 79; RESP 19
--- NOTE | 2020-06-23 | NUR.NOTE ---
2300 pt yelling , trying to climb OOB, pulling everything off. just want to go to bed called to come in and sit with pt. 2330- in to sit with pt for a while. much calmer now. trying to go to sleep. at bedside.
[2020-06-23 00:01] VITALS: BP 105/69; PULSE 81; PULSE 82; RESP 20
[2020-06-23 00:02] VITALS: PULSE 76; RESP 18
[2020-06-23 02:00] VITALS: PULSE 99; RESP 21
--- NOTE | 2020-06-23 03:39 | NUR.NOTE ---
pt awake and lsert. completely aware of time, place andd circumstances. Awaiting the Dr this am. Wants to go home. Anxious to eat and drink. States she is all back to normal now and making sense. like a regular person.
--- NOTE | 2020-06-23 05:27 | NUR.NOTE ---
0400-Pt agitated, wants to go home right now. Pt counseled at great length by myself and by Kamaljit Florez nursing supervisor sewing room. Refuses to stay to see the MD in AM. Called on her cell phone and told him to come and pick her up. Kamaljit Mirza , nursing supervisor sewing room aware. AMA paper signed, Dr Gould notified. Assisted pt in getting dreswsed. Dubois cath dc'd and Iv dc'd Pericentesis bag drained. Pt dressed with some assistance. ddpivoted to wheelchair and taken out front entrance. Able to get into husbands picker operator truck with little help. Left for home.
--- NOTE | 2020-06-24 17:56 | W.PM.DS.N ---
Date of service: 06/23/20 Time of Service: 08:00 DS: Diagnosis Discharge Diagnosis (1) Acute hepatic encephalopathy: Status: Acute (2) Advanced hepatic cirrhosis: Status: Chronic (3) Abdominal ascites: Status: Chronic Discharge Plan Disposition Patient Disposition: AGAINST MEDICAL ADVICE Condition: Serious Discharge Details Reason For Visit: HEPATIC ENCEPHALOPATHY Admit Date/Time: 06/20/20 15:58 Admit Provider: Hamilton Alfonso Attending Provider: Hamilton Alfonso Primary Care Provider: Ling Pepe Hospital Course Hospital Course: 55-year-old female with a history of chronic hepatitis C, cirrhosis, hepatic encephalopathy presented with worsening hepatic encephalopathy to the point where she was confused and not taking her lactulose and her rifaximin. Patient required admission to the intensive care unit for close monitoring because of acute mental status change. She required placement of NG in order to get her lactulose doses and her. Once she had enough lactulose doses in her to the point where she was stooling she became more coherent and her NG was removed. However once she became awake enough to refuse her medications she started getting more somnolent and the NG tube had to be replaced. Further doses of lactulose were given through her NG. She did sustain a epistaxis from placement of the NG this was treated with topical prothrombin. Nosebleed was controlled. However the patient became more belligerent and uncooperative and the patient left the hospital AGAINST MEDICAL ADVICE. Unfortunately her and enabled her behavior and obliged with picking her up and taking her home. No new prescriptions were written for her and no follow-up labs were written for her and at this time her condition upon discharge is unknown. Home Meds and New Rx's Prescriptions: No Action famotidine 40 mg tablet 40 mg PO DAILY RF: 0 spironolactone 100 mg tablet 50 mg PO DAILY RF: 0 furosemide 80 mg tablet 80 mg PO DAILY RF: 0 nitroglycerin 0.4 mg Tablet, Sublingual 0.4 mg SUBLINGUAL Q5M PRNRF: 0 Xifaxan 550 mg tablet 550 mg PO BID RF: 0 lactulose 20 gram/30 mL Solution 20 g PO TID RF: 0 metoprolol succinate 100 mg tablet extended release 24 hr 100 mg PO HS RF: 0 potassium chloride 20 mEq tablet,ER particles/crystals 20 meq PO DAILY RF: 0 magnesium 200 mg tablet 200 mg PO BID Qty: 60 RF: 12 Discharge Instructions Activity:: Activity as Tolerated Equipment/Supplies:: No Equipment Needed Diet:: As Tolerated Discharge Orders Discharge Orders: Discharge Order (Routine); Ordered 06/24/20 Ordered By: Hamilton Alfonso Discharge Data Discharge Date/Time-TO BE ENTERED AT DEPARTURE: 06/23/20 04:45 Discharge Comment: Pt signed out AMA.Dr. Gould Aware. DS: Summary Status at Discharge Functional status at discharge: independent ambulation Overall status at discharge: patient is not back to baseline Mental Status: other Speech and Movement: other Mood: other Affect: other Time Spent with Patient providing and/or coordinating discharge services: Less than 30 minutes Exam Psych Mental Status: other Speech and Movement: other Mood: other Affect: other DS: Data Vitals/I&O Vitals and I&O: Vital Signs Temperature 36.2 C L 06/22/20 20:12 Temperature Source Temporal Artery Scan 06/22/20 20:12 Pulse 82 06/23/20 00:01 Pulse Rhythm Irregular 06/23/20 01:33 Pulse 99 H 06/23/20 02:00 Respiratory Rate 21 06/23/20 02:00 Respiratory Effort Non-Labored 06/23/20 01:33 Respiratory Depth Normal 06/23/20 01:33 Respiratory Pattern Normal 06/23/20 01:33 Blood Pressure 105/69 06/23/20 00:01 Blood Pressure Mean 77 06/23/20 00:01 Blood Pressure Position Supine 06/21/20 13:00 Pulse Oximetry 100 06/22/20 22:01 Oxygen Delivery Method Room Air 06/22/20 20:12 Oxygen Flow Rate 0 06/22/20 20:12 Pain Level 2 06/22/20 20:12 Data Completed and Pending Labs on day of discharge: Preliminary micro results at discharge 06/20/20 14:05 Blood Culture - Preliminary Blood NO GROWTH 96 HOURS 06/20/20 12:47 Blood Culture - Preliminary Blood NO GROWTH 96 HOURS [facility] Medical History Advanced hepatic cirrhosis Hep C & ETOH Anxiety Atrial fibrillation with controlled ventricular rate Attention deficit hyperactivity disorder, combined type Cholestasis of Chronic hepatitis C CKD (chronic kidney disease) stage 4, GFR 15-29 ml/min COVID-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 Irritable colon Nephrotic syndrome Pleural effusion associated with hepatic disorder Renal failure syndrome Surgical History section x2 Hx of tubal ligation Family History Mother Hypertensive disorder, systemic arterial Father Hypertensive disorder, systemic arterial Social History Smoking/Tobacco Use Status: Former Tobacco Use Quit Date: 09/18/18 Alcohol Intake: former Drug use: Never Substance use type: does not use Do you feel safe at home: Yes Do you feel safe in your relationship?: Yes 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
== END 2020-06-23 04:45 | disposition left against medical advice (07) | DRG 442 ==
LOC: ER 16:06 → ICU 17:03
PROVIDERS: Admitting Provider Internal Medicine; Emergency Provider Physician Assistant; PCP Nurse Practitioner Family; Visit Provider Internal Medicine
DX: K72.00 Acute and subacute hepatic failure without coma (principal); N04.9 Nephrotic syndrome with unspecified morphologic changes; I42.9 Cardiomyopathy, unspecified; N18.4 Chronic kidney disease, stage 4 (severe); J91.8 Pleural effusion in other conditions classified elsewhere; K70.31 Alcoholic cirrhosis of liver with ascites; E87.6 Hypokalemia; I48.91 Unspecified atrial fibrillation; I50.9 Heart failure, unspecified; F41.9 Anxiety disorder, unspecified; F64.9 Gender identity disorder, unspecified; B18.2 Chronic viral hepatitis C; F90.2 Attention-deficit hyperactivity disorder, combined type; Z91.19 Patient's noncompliance with other medical treatment and regimen
CPT/HCPCS: 36415; 71045; 80053; 80307; 85027; 87040; 93005; 96361; 96365; 96366; 96375; 99222; 99223; 99233; 99253; 99285; NC; U0003; 70450; 80320; 81003; 82140; 83605; 83735; 84443; 84484; 85025; 85610; 87070; 87205; 93010; J0744; J2060; J3480; J3490

== ENCOUNTER 2020-06-29 00:40 | Outpatient (CLI) | payer MEDICARE, MEDICAID, SELFPAY ==
[2020-06-29 08:22] LABS: Abs Immature Grans 0.02 10^3/uL (0.0-0.06); Absolute Basophil Count 0.07 10^3/uL (0.0-0.2); Absolute Monocyte Count 0.67 10^3/uL (0.1-0.8); Absolute Neutrophil Count 2.48 10^3/uL (1.2-6.7); Basophils % 1.4; Eosinophils % 6.2; HCT 28.2 % (36.0-46.0); HGB 9.3 g/dL (11.2-15.7); Immature Grans % 0.4; Lymphocytes % 26.9; MCH 34.6 pg (27.0-33.0); MCV 104.8 fL (80-95); MPV 10.6 fL (8.0-11.0); Monocytes % 13.8; Neutrophils % 51.3; Nucleated RBC 0 %; Platelet Count 118 10^3/uL (130-400); RBC 2.69 10^6/uL (3.93-5.22); RDW 16.7 % (11.7-14.6); RDW-SD 63.7 fL; WBC 4.84 10^3/uL (4.4-10.8)
[2020-06-29 08:28] LABS: INR 1.6 (0.9-1.1)
--- NOTE | 2020-06-29 08:32 | DI.RAD_ITS ---
EXAM: XR CHEST 2V PA LATERAL CLINICAL HISTORY: pre-op for paracentesis, pleural effusion,J90 TECHNIQUE: 2D digital imaging was performed. COMPARISON: CR XR CHEST 2V PA LATERAL from 06/15/2020 FINDINGS: MEDIASTINUM: Normal. HEART: Normal. PULMONARY VASCULATURE: Normal. LUNGS: Clear. PLEURAL SPACE: There is a right pleural effusion occupying almost half of the right hemithorax. No p neumothorax or left pleural effusion. BONE:There is an S-type thoracolumbar scoliosis. OTHER FINDINGS:Normal. IMPRESSION: Right pleural effusion occupying almost half of the right hemithorax. DATA REPOSITORY: RADIATION DOSE DELIVERED:
[2020-06-29 09:13] LABS: ALT 28 U/L (14-59); AST 39 U/L (15-37); Albumin 2.9 g/dL (3.4-5.0); Alkaline Phosphatase 145 U/L (46-116); Anion Gap 9.8 mmol/L (3-11); BUN 36 mg/dL (7-18); Bilirubin, Total 4.1 mg/dL (0.2-1.0); CO2 26.2 mmol/L (21.0-32.0); CREATININE 1.99 mg/dL (0.55-1.02); Calcium 8.4 mg/dL (8.5-10.1); Chloride 103 mmol/L (98-107); Estimated GFR 26.21 (mL/min/1.73m2); Glucose 89 mg/dL (74-106); Potassium 3.2 mmol/L (3.5-5.1); Sodium 139 mmol/L (136-145); Total Protein 6.4 g/dL (6.4-8.2)
== END 2020-06-29 01:00 ==
PROVIDERS: PCP Nurse Practitioner Family; Visit Provider Surgery
DX: R18.8 Other ascites (principal); J90 Pleural effusion, not elsewhere classified
CPT/HCPCS: 36415; 80053; 99214; 71046; 85025; 85610

== ENCOUNTER 2020-06-30 08:16 | Day surgery (SDC) | payer MEDICARE, MEDICAID, SELFPAY ==
[2020-06-30 08:25] VITALS: BP 112/80; PULSE 82; RESP 20; TEMP 36.3; O2SAT 99
[2020-06-30] MEDS: Normal Saline Flush 10 ML SYR IVP (09:09)
--- NOTE | 2020-06-30 10:43 | SUR.INTRAOP ---
1044 Vital signs post op Sp02 100% on rm air BP 91/53
--- NOTE | 2020-06-30 10:48 | W.PM.DSUDISC ---
Discharge Plan Disposition Patient Disposition: HOME Condition: Good Discharge Details Reason For Visit: Right thoracentesis, paracentesis Attending Provider: Marley Wade Primary Care Provider: Ling Pepe Home Meds and New Rx's Prescriptions: Continued sofosbuvir-velpatasvir [Epclusa] 400-100 mg tablet 1 tab PO DAILY RF: 0 spironolactone 100 mg tablet 50 mg PO DAILY RF: 0 furosemide 80 mg tablet 80 mg PO DAILY RF: 0 nitroglycerin 0.4 mg Tablet, Sublingual 0.4 mg SUBLINGUAL Q5M PRNRF: 0 Xifaxan 550 mg tablet 550 mg PO BID RF: 0 lactulose 20 gram/30 mL Solution 20 g PO TID RF: 0 metoprolol succinate 100 mg tablet extended release 24 hr 100 mg PO HS RF: 0 Discharge Instructions Additional Instructions: Drainage from the abdominal site is expected. Keep a gauze or ostomy bag on the area as needed. If you have shortness of breath, fever, abdominal pain, contact the surgeon station mechanic apprentice or the office. We will plan for a repeat procedure in 2-3 weeks as needed. Activity:: Activity as Tolerated Remove Dressings/Wound Care:: 24 hours Shower/Bathe:: 24 hours Diet:: As usual Discharge Orders Discharge Orders: Discharge Order (Routine); Ordered 06/30/20 Ordered By: Marley Wade DS: Diagnosis Discharge Diagnosis (1) Abdominal ascites: Status: Chronic (2) Pleural effusion, right: Status: Acute
--- NOTE | 2020-06-30 11:20 | DI.RAD_ITS ---
EXAM: XR PORTABLE CHEST AP CLINICAL HISTORY: Right thoracentesis TECHNIQUE: 2D digital imaging was performed. COMPARISON: CR XR CHEST 2V PA LATERAL from 06/29/2020 FINDINGS: The patient is status post right thoracentesis. There is minimal blunting at the right costophrenic angle. No pneumothorax is seen. There are minimal residual densities at the right lung base. Left lung appears clear. The heart size is normal. Scoliosis is again noted. IMPRESSION: Status post right thoracentesis. No evidence of pneumothorax. DATA REPOSITORY: RADIATION DOSE DELIVERED:
--- NOTE | 2020-06-30 12:53 | W.PM.OP ---
Operative Note Operative Note DATE OF PROCEDURE: 06/30/20 PRE-OP DIAGNOSIS: Right pleural effusion Ascites POST-OP DIAGNOSIS: same PROCEDURE: Right thoracentesis Paracentesis SURGEON: Marley Wade ANESTHESIA: local Indications: This 55 year old returns with shortness of breath and increased abdominal distension. CXR yesterday showed return of the right pleural effusion. Procedure Description: The patient was taken to the operating room and positioned seated leaning over a [place] stand. Ultrasound was used to confirm the area of fluid in the right pleural space. This was also identified with percussion. The skin here was prepped and draped sterilely and infiltrated with local anesthetic. The intercostal region and pleural tissue were also infiltrated with local anesthetic. The pleural space was accessed with the needle/ catheter apparatus and the catheter advanced while removing the needle. Clear yellow fluid was aspirated. The catheter was connected to the vacuum containers and 2275 cc removed. The patient had some coughing towards the end of the procedure. The catheter was removed and a Band-Aid applied. She then repositioned into the right lateral decubitus position. Ultrasound confirmed a large pocket of fluid. The skin of the right upper abdomen was prepped and draped sterilely and then infiltrated local anesthetic as was the muscle and peritoneum. A small incision was made and abdomen accessed with the needle/catheter device. The catheter was threaded in over the needle. There is clear yellow fluid aspirated here as well. This was attached to the vacuum canisters with 2775 cc removed. The catheter was removed and 4 x 4's taped over the opening. She tolerated the procedure well and was stable to recovery where postprocedure chest film shows resolution of the effusion and no pneumothorax.
== END 2020-06-30 11:46 | disposition home or self-care (01) ==
PROVIDERS: PCP Nurse Practitioner Family; Visit Provider Surgery
PROC: 0W9G3ZZ Drainage of Peritoneal Cavity, Percutaneous Approach (ICD-10-PCS; CPT 49082; principal; 2020-06-30 09:15)
PROC: (CPT 32554; 2020-06-30 09:15)
DX: K70.31 Alcoholic cirrhosis of liver with ascites (principal); B19.20 Unspecified viral hepatitis C without hepatic coma; J91.8 Pleural effusion in other conditions classified elsewhere
CPT/HCPCS: 49083; 32554; 71045

== ENCOUNTER 2020-07-03 14:33 | Emergency (ER) | payer MEDICARE, MEDICAID, SELFPAY ==
[2020-07-03] VITALS (8 sets, daily range): BP systolic 107–111; BP diastolic 57–68; PULSE 67–86; RESP 11–23; O2SAT 100
--- NOTE | 2020-07-03 14:45 | RT.EKG_ITS ---
APPROVED REPORT Exam: Resting ECG Patient Location: E HR:78 bpm ECG Measurements Heart Rate 78 AXIS CA [id number] P [id number] QRSd 111 QRS 68 QT 426 T [id number] QTc 487 Conclusion Atrial fibrillation...V-rate 60- 84, irreg A-activity Incomplete left bundle branch block...QRSd>110mS, terminal axis(-90,-1) Low voltage, extremity leads...all extremity leads <0.5mV I have reviewed and interpreted ECG and agree with software generated interpretation.
[2020-07-03 15:34] LABS: Lactate 1.5 mmol/L (0.6-1.4)
[2020-07-03 15:35] LABS: Abs Immature Grans 0.03 10^3/uL (0.0-0.06); Absolute Basophil Count 0.05 10^3/uL (0.0-0.2); Absolute Eosinophil Count 0.09 10^3/uL (0.0-0.7); Absolute Lymphocyte Count 1.18 10^3/uL (1.2-3.4); Absolute Monocyte Count 0.53 10^3/uL (0.1-0.8); Absolute Neutrophil Count 2.72 10^3/uL (1.2-6.7); Basophils % 1.1; HCT 30.9 % (36.0-46.0); HGB 10.2 g/dL (11.2-15.7); Immature Grans % 0.7; Lymphocytes % 25.7; MCH 33.6 pg (27.0-33.0); MCV 101.6 fL (80-95); MPV 10.6 fL (8.0-11.0); Monocytes % 11.5; Nucleated RBC 0 %; Platelet Count 129 10^3/uL (130-400); RBC 3.04 10^6/uL (3.93-5.22); RDW 15.9 % (11.7-14.6); RDW-SD 59.8 fL
[2020-07-03 15:54] LABS: ALT 27 U/L (14-59); AST 41 U/L (15-37); Albumin 2.5 g/dL (3.4-5.0); Alkaline Phosphatase 167 U/L (46-116); BUN 39 mg/dL (7-18); Bilirubin, Total 3.5 mg/dL (0.2-1.0); Calcium 8.6 mg/dL (8.5-10.1); Chloride 104 mmol/L (98-107); Estimated GFR 20.15 (mL/min/1.73m2); Glucose 120 mg/dL (74-106); Sodium 137 mmol/L (136-145); Troponin I < 0.05 ng/mL (<0.06)
[2020-07-03 15:58] LABS: INR 1.6 (0.9-1.1); PTT Activated 36.5 sec (21.0-31.4)
--- NOTE | 2020-07-03 16:14 | W.ED.GENAD ---
Discharge Plan Disposition Patient Disposition: AGAINST MEDICAL ADVICE Condition: Stable Discharge Details Clinical Impression: Nausea, History of cirrhosis, S/P abdominal paracentesis Primary Care Provider: Ling Pepe ED Provider: Kylah Ruby Home Meds and New Rx's Prescriptions: Continued sofosbuvir-velpatasvir [Epclusa] 400-100 mg tablet 1 tab PO DAILY RF: 0 spironolactone 100 mg tablet 50 mg PO DAILY RF: 0 furosemide 80 mg tablet 80 mg PO DAILY RF: 0 nitroglycerin 0.4 mg Tablet, Sublingual 0.4 mg SUBLINGUAL Q5M PRNRF: 0 Xifaxan 550 mg tablet 550 mg PO BID RF: 0 lactulose 20 gram/30 mL Solution 20 g PO TID RF: 0 metoprolol succinate 100 mg tablet extended release 24 hr 100 mg PO HS RF: 0 Discharge Instructions Instructions: Acute Nausea and Vomiting (ED) Additional Instructions: Drink plenty of fluids and get plenty of rest. Call your primary care doctor and general surgeon on Monday to discuss your symptoms and for reevaluation. Return immediately to the emergency department if you develop any worsening or new concerning symptoms. Discharge Data Discharge Date/Time-TO BE ENTERED AT DEPARTURE: 07/03/20 16:35 Discharge Physician: Kylah Ruby Medical Decision Making 55-year-old female with a history of multiple medical problems including advanced hepatic cirrhosis, atrial fibrillation, chronic hepatitis C, CKD, recurrent pleural effusions and ascites requiring frequent paracentesis presents for nausea since yesterday. Last paracentesis 3 days ago in which 5 L were removed. Vitals within normal limits. She appears chronically ill but nontoxic and in no acute respiratory distress. Her abdomen is soft and nontender with drainage bag in right upper quadrant with clear yellow fluid in bag. Screening labs obtained on arrival and note chronic abnormalities but no significant change compared to previous. Creatinine 2.5 which is elevated compared to last result of 1.99. T bili at 3.5 which is her baseline. Troponin negative. Potassium 3.0. While discussing plan for CT imaging and treatment of her nausea, patient continually asked will I from my hepatitis C ? Discussed with patient that she has multiple chronic medical problems all of which have a high risk of morbidity and mortality but without further evaluation and observation at this time, cannot determine the exact etiology of her symptoms at present. Advised that she stay for further observation and imaging and consults if needed. Patient does not want to stay any longer stating I feel better and as long as I know this is not from my hepatitis C I would like to go home. Patient declined any nausea medication or Ativan here stating it interacts with her Epclusa. Discussed with patient that these medications could be helpful and may not cause an interaction. She is declining any meds and states she will follow-up with her primary care doctor and her doctor at [facility] for reevaluation. Despite our efforts, the patient has decided to leave against medical advice. She has a normal mental status and full decisional capacity. The patient understands her condition and the risks of leaving AMA, including BUT NOT LIMITED TO permanent disability, , etc., and has had an opportunity to ask questions about her medical condition. The patient has been informed that she may return for care at any time, and has been referred to her local medical physician for follow up ARIELLA. Medical Records Medical records reviewed: Yes I reviewed the patient's medical records. Lab Data Lab results reviewed: Yes I reviewed the patient's lab results. Labs: 07/03/20 15:35 Blood Blood Culture - Pending 07/03/20 15:25 Blood Blood Culture - Pending Laboratory Tests Range/Units 07/03/20 07/03/20 07/03/20 15:25 15:25 15:25 WBC (4.4-10.8) 10^3/uL 4.60 RBC (3.93-5.22) 10^6/uL 3.04 L Hgb (11.2-15.7) g/dL 10.2 L Hct (36.0-46.0) % 30.9 L MCV (80-95) fL 101.6 H MCH (27.0-33.0) pg 33.6 H MCHC (32.0-36.0) % 33.0 RDW (11.7-14.6) % 15.9 H Plt Count (130-400) 10^3/uL 129 L MPV (8.0-11.0) fL 10.6 Immature Gran % 0.7 Neutrophils % 59.0 Lymphocytes % 25.7 Monocytes % 11.5 Eosinophils % 2.0 Basophils % 1.1 Nucleated RBC % % 0 Absolute Neutrophils (1.2-6.7) 10^3/uL 2.72 Absolute Lymphocytes (1.2-3.4) 10^3/uL 1.18 L Absolute Monocytes (0.1-0.8) 10^3/uL 0.53 Absolute Eosinophils (0.0-0.7) 10^3/uL 0.09 Absolute Basophils (0.0-0.2) 10^3/uL 0.05 PT (9.3-11.0) sec 16.0 H INR (0.9-1.1) 1.6 H APTT (21.0-31.4) sec 36.5 H VBG Lactate (0.6-1.4) mmol/L Sodium (136-145) mmol/L 137 Potassium (3.5-5.1) mmol/L 3.0 L Chloride (98-107) mmol/L 104 Carbon Dioxide (21.0-32.0) mmol/L 25.0 Anion Gap (3-11) mmol/L 8.0 BUN (7-18) mg/dL 39 H Creatinine (0.55-1.02) mg/dL 2.50 H Estimated GFR/1.73 m2 (mL/min/1.73m2) 20.15 Glucose (74-106) mg/dL 120 H Calcium (8.5-10.1) mg/dL 8.6 Magnesium (1.8-2.4) mg/dL 2.0 Total Bilirubin (0.2-1.0) mg/dL 3.5 H AST (15-37) U/L 41 H ALT (14-59) U/L 27 Alkaline Phosphatase (46-116) U/L 167 H Troponin I (<0.06) ng/mL < 0.05 Total Protein (6.4-8.2) g/dL 6.0 L Albumin (3.4-5.0) g/dL 2.5 L Range/Units 07/03/20 15:25 WBC (4.4-10.8) 10^3/uL RBC (3.93-5.22) 10^6/uL Hgb (11.2-15.7) g/dL Hct (36.0-46.0) % MCV (80-95) fL MCH (27.0-33.0) pg MCHC (32.0-36.0) % RDW (11.7-14.6) % Plt Count (130-400) 10^3/uL MPV (8.0-11.0) fL Immature Gran % Neutrophils % Lymphocytes % Monocytes % Eosinophils % Basophils % Nucleated RBC % % Absolute Neutrophils (1.2-6.7) 10^3/uL Absolute Lymphocytes (1.2-3.4) 10^3/uL Absolute Monocytes (0.1-0.8) 10^3/uL Absolute Eosinophils (0.0-0.7) 10^3/uL Absolute Basophils (0.0-0.2) 10^3/uL PT (9.3-11.0) sec INR (0.9-1.1) APTT (21.0-31.4) sec VBG Lactate (0.6-1.4) mmol/L 1.5 H Sodium (136-145) mmol/L Potassium (3.5-5.1) mmol/L Chloride (98-107) mmol/L Carbon Dioxide (21.0-32.0) mmol/L Anion Gap (3-11) mmol/L BUN (7-18) mg/dL Creatinine (0.55-1.02) mg/dL Estimated GFR/1.73 m2 (mL/min/1.73m2) Glucose (74-106) mg/dL Calcium (8.5-10.1) mg/dL Magnesium (1.8-2.4) mg/dL Total Bilirubin (0.2-1.0) mg/dL AST (15-37) U/L ALT (14-59) U/L Alkaline Phosphatase (46-116) U/L Troponin I (<0.06) ng/mL Total Protein (6.4-8.2) g/dL Albumin (3.4-5.0) g/dL ECG Data Attestation: I personally reviewed and interpreted this ECG (s) as follows: Interpretation: Rate of 78, atrial fibrillation, no acute ST elevation or depression. DE 214. QRS 111. QTc 487. HPI General Mode of arrival: ambulatory. Date/Time Provider Initiated Documentation: 07/03/20 14:50. Limitations to Documentation: no limitations. Information obtained by: patient. HPI Narrative: Patient is a 55-year-old female with multiple chronic medical problems including advanced hepatic cirrhosis, anxiety, atrial fibrillation, CKD, recurrent pleural effusions and ascites requiring paracentesis who presents for nausea and feeling generally unwell since yesterday. Patient had 5 L removed during a paracentesis with Dr. Wade 3 days ago. A bag is in place on her abdomen to help contain continued leakage. Patient denies any fever, chest pain, shortness of breath, abdominal pain, vomiting, diarrhea. She denies any recent travel. She states she is chronically on Xifaxin antibiotic. Related Data Home Medications Medication Instructions Recorded Confirmed Xifaxan 550 mg PO BID 04/18/20 06/30/20 furosemide 80 mg PO DAILY 04/18/20 06/30/20 lactulose 20 g PO TID 04/18/20 06/30/20 nitroglycerin 0.4 mg SUBLINGUAL Q5M PRN 04/18/20 06/30/20 spironolactone 50 mg PO DAILY 04/18/20 06/30/20 metoprolol succinate 100 mg PO HS 06/15/20 06/30/20 sofosbuvir 400 mg-velpatasvir 100 1 tab PO DAILY 06/29/20 06/30/20 mg tablet Allergies Allergy/AdvReac Type Severity Reaction Status Date / Time amphetamine aspartate Allergy Severe Facial Unverified 06/30/20 08:32 [From Adderall] Swelling, Blisters, Tongue Swelling, Rash, amphetamine sulfate Allergy Severe Facial Unverified 06/30/20 08:32 [From Adderall] Swelling, Blisters, Tongue Swelling, Rash, dextroamphetamine saccharate Allergy Severe Facial Unverified 06/30/20 08:32 [From Adderall] Swelling, Blisters, Tongue Swelling, Rash, dextroamphetamine sulfate Allergy Severe Facial Unverified 06/30/20 08:32 [From Adderall] Swelling, Blisters, Tongue Swelling, Rash, Penicillins Allergy Intermediate Hives, Unverified 06/30/20 08:32 Rash, Tongue Swelling codeine AdvReac Mild Constipatio Unverified 06/30/20 08:32 n General Stated Complaint: GenMedical JOE: 2 Review of Systems All systems reviewed & are unremarkable except as noted in HPI and below Constitutional Constitutional: Reports as per HPI, Denies chills and Denies fever(s) Eyes Eyes: Denies blurry vision ENT Ears, Nose, Mouth, and Throat: Denies dizziness, Denies sore throat and Denies throat swelling Cardiovascular Cardiovascular: Denies chest pain and Denies dyspnea Respiratory Respiratory: Denies cough and Denies dyspnea Gastrointestinal Gastrointestinal: Denies abdominal pain, Denies diarrhea, Reports nausea and Denies vomiting Genitourinary Genitourinary: Denies hematuria and Denies dysuria Musculoskeletal Musculoskeletal: Denies back pain and Denies numbness Integumentary/Breasts Skin/Breast: Denies lesions and Denies rash Neurologic Neurologic: Denies dizziness, Denies localized weakness and Denies numbness Allergic/Immunologic Allergic/Immunologic: Denies throat swelling [facility] Medical History (Updated 07/03/20 @ 16:18 by Kylah Ruby DO) Advanced hepatic cirrhosis Hep C & ETOH Anxiety Atrial fibrillation with controlled ventricular rate Attention deficit hyperactivity disorder, combined type Cholestasis of Chronic hepatitis C CKD (chronic kidney disease) stage 4, GFR 15-29 ml/min COVID-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 History of abdominal paracentesis Irritable colon Nephrotic syndrome Pleural effusion associated with hepatic disorder Renal failure syndrome Surgical History (Updated 06/30/20 @ 08:31 by Dot Hernandez) section x2 History of thoracentesis Hx of tubal ligation Family History Mother Hypertensive disorder, systemic arterial Father Hypertensive disorder, systemic arterial Social History Smoking/Tobacco Use Status: Former Tobacco Use Quit Date: 09/18/18 Alcohol Intake: former Drug use: Never Substance use type: does not use Do you feel safe at home: Yes Do you feel safe in your relationship?: Yes 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 Const General: cooperative, no acute distress and ill appearing chronically Orientation: alert, awake and oriented x3 HENMT Head: normal to inspection Face and sinus: normal facial exam Eyes General: appearance normal, both eyes and all related structures Sclera: scleral abnormality bilaterally other (scleral icterus b/l) EOM: EOM intact bilaterally Neck Neck: normal visual inspection and No submandibular swelling Lymphatic: no lymphadenopathy noted Chest Chest: normal inspection of the chest and no tenderness Resp Effort & Inspection: normal respiratory effort and able to speak in complete sentences Auscultation: clear to auscultation bilaterally Cardio Rate: regular rate Rhythm: regular rhythm GI Inspection: normal to inspection and other (drainage bag in RUQ) Palpation: soft, not firm, not rigid and nontender Auscultation: hypoactive bowel sounds Back/Spine/Pelvis Thoracic/Lumbar Spine: thoracic and lumbar spine normal to inspection Skin General skin exam: no rashes or lesions noted Neuro General: patient alert, patient awake and patient oriented x3 Cognition: normal cognition Speech: speech normal Motor: muscle tone normal throughout Sensory Exam: no sensory deficits noted Extrem General: normal to inspection, full ROM, capillary refill normal, no calf tenderness bilaterally and no edema Psych Appearance: grossly normal Mental Status: mental status grossly normal Speech and Movement: speech and movement normal Affect: normal affect Course Vital Signs Vital signs: Vital Signs Pulse 86 07/03/20 14:42 Respiratory Rate 17 07/03/20 14:42 Blood Pressure 107/68 07/03/20 14:42 Pulse Oximetry 100 07/03/20 14:42 Pulse 67 07/03/20 15:05 Pulse 84 07/03/20 15:40 Respiratory Rate 23 07/03/20 15:40 Respiratory Effort Non-Labored 07/03/20 15:02 Respiratory Depth Normal 07/03/20 15:02 Respiratory Pattern Normal 07/03/20 15:02 Blood Pressure 111/57 L 07/03/20 15:05 Blood Pressure Mean 68 07/03/20 15:05 Blood Pressure Position Supine 07/03/20 14:42 Pulse Oximetry 100 07/03/20 15:30 Oxygen Delivery Method Room Air 07/03/20 14:42 Oxygen Flow Rate 0 07/03/20 14:42 Lab/Test Results Lab/Test Results: 07/03/20 15:35 Blood Blood Culture - Pending 07/03/20 15:25 Blood Blood Culture - Pending Laboratory Tests Range/Units 07/03/20 07/03/20 07/03/20 15:25 15:25 15:25 WBC (4.4-10.8) 10^3/uL 4.60 RBC (3.93-5.22) 10^6/uL 3.04 L Hgb (11.2-15.7) g/dL 10.2 L Hct (36.0-46.0) % 30.9 L MCV (80-95) fL 101.6 H MCH (27.0-33.0) pg 33.6 H MCHC (32.0-36.0) % 33.0 RDW (11.7-14.6) % 15.9 H Plt Count (130-400) 10^3/uL 129 L MPV (8.0-11.0) fL 10.6 Immature Gran % 0.7 Neutrophils % 59.0 Lymphocytes % 25.7 Monocytes % 11.5 Eosinophils % 2.0 Basophils % 1.1 Nucleated RBC % % 0 Absolute Neutrophils (1.2-6.7) 10^3/uL 2.72 Absolute Lymphocytes (1.2-3.4) 10^3/uL 1.18 L Absolute Monocytes (0.1-0.8) 10^3/uL 0.53 Absolute Eosinophils (0.0-0.7) 10^3/uL 0.09 Absolute Basophils (0.0-0.2) 10^3/uL 0.05 PT (9.3-11.0) sec 16.0 H INR (0.9-1.1) 1.6 H APTT (21.0-31.4) sec 36.5 H VBG Lactate (0.6-1.4) mmol/L Sodium (136-145) mmol/L 137 Potassium (3.5-5.1) mmol/L 3.0 L Chloride (98-107) mmol/L 104 Carbon Dioxide (21.0-32.0) mmol/L 25.0 Anion Gap (3-11) mmol/L 8.0 BUN (7-18) mg/dL 39 H Creatinine (0.55-1.02) mg/dL 2.50 H Estimated GFR/1.73 m2 (mL/min/1.73m2) 20.15 Glucose (74-106) mg/dL 120 H Calcium (8.5-10.1) mg/dL 8.6 Magnesium (1.8-2.4) mg/dL 2.0 Total Bilirubin (0.2-1.0) mg/dL 3.5 H AST (15-37) U/L 41 H ALT (14-59) U/L 27 Alkaline Phosphatase (46-116) U/L 167 H Troponin I (<0.06) ng/mL < 0.05 Total Protein (6.4-8.2) g/dL 6.0 L Albumin (3.4-5.0) g/dL 2.5 L Range/Units 07/03/20 15:25 WBC (4.4-10.8) 10^3/uL RBC (3.93-5.22) 10^6/uL Hgb (11.2-15.7) g/dL Hct (36.0-46.0) % MCV (80-95) fL MCH (27.0-33.0) pg MCHC (32.0-36.0) % RDW (11.7-14.6) % Plt Count (130-400) 10^3/uL MPV (8.0-11.0) fL Immature Gran % Neutrophils % Lymphocytes % Monocytes % Eosinophils % Basophils % Nucleated RBC % % Absolute Neutrophils (1.2-6.7) 10^3/uL Absolute Lymphocytes (1.2-3.4) 10^3/uL Absolute Monocytes (0.1-0.8) 10^3/uL Absolute Eosinophils (0.0-0.7) 10^3/uL Absolute Basophils (0.0-0.2) 10^3/uL PT (9.3-11.0) sec INR (0.9-1.1) APTT (21.0-31.4) sec VBG Lactate (0.6-1.4) mmol/L 1.5 H Sodium (136-145) mmol/L Potassium (3.5-5.1) mmol/L Chloride (98-107) mmol/L Carbon Dioxide (21.0-32.0) mmol/L Anion Gap (3-11) mmol/L BUN (7-18) mg/dL Creatinine (0.55-1.02) mg/dL Estimated GFR/1.73 m2 (mL/min/1.73m2) Glucose (74-106) mg/dL Calcium (8.5-10.1) mg/dL Magnesium (1.8-2.4) mg/dL Total Bilirubin (0.2-1.0) mg/dL AST (15-37) U/L ALT (14-59) U/L Alkaline Phosphatase (46-116) U/L Troponin I (<0.06) ng/mL Total Protein (6.4-8.2) g/dL Albumin (3.4-5.0) g/dL
== END 2020-07-03 16:35 | disposition left against medical advice (07) ==
PROVIDERS: Emergency Provider Physician Assistant; PCP Nurse Practitioner Family
DX: K70.31 Alcoholic cirrhosis of liver with ascites (principal); Z98.890 Other specified postprocedural states; B18.2 Chronic viral hepatitis C; N18.4 Chronic kidney disease, stage 4 (severe); Z53.29 Procedure and treatment not carried out because of patient's decision for other reasons
CPT/HCPCS: 36415; 80053; 87040; 93005; 99284; 83605; 83735; 84484; 85025; 85610; 85730; 93010; 99285

== ENCOUNTER 2020-07-08 19:41 | Inpatient (IN) | payer MEDICARE, MEDICAID, SELFPAY ==
[2020-07-08] VITALS (18 sets, daily range): BP systolic 99–113; BP diastolic 51–73; PULSE 66–93; RESP 12–21; TEMP 36.7–37.3; O2SAT 96–100
--- NOTE | 2020-07-08 20:10 | DI.CT_ITS ---
EXAM: CT HEAD WO CLINICAL HISTORY: ams. TECHNIQUE: Imaging Protocol: Axial computed tomography images with coronal and sagittal reformatted images were created and reviewed COMPARISON: CT CT HEAD WO from 06/20/2020 FINDINGS: The exam is limited by patient motion. Ventricles and Extra axial spaces: Normal in size and morphology for the patient's age. Hemorrhage: None. Cerebral parenchyma: Normal. Midline shift: None. Brainstem/Cerebellum: Normal. Calvarium: Normal. Visualized Paranasal sinuses/Mastoids: A few mastoid air cells show fluid. The sinuses appear clear . Soft Tissues: Unremarkable. IMPRESSION: Limited exam due to motion. Minimal bilateral mastoid effusions. No acute intracranial process. RADIATION DOSE DELIVERED: 718.25mGy.cm Total DLP DATA REPOSITORY: All CT scans at this facility are submitted to the National Radiology Data Registry (NRDR) Dose Index Registry (DIR) with the [employer] ([employer]). RADIATION OPTIMIZATION: All CT scans at this facility use at least one of these dose optimization te chniques: automated exposure control; mA and/or kV adjustment per patient size (includes targeted exa ms where dose is matched to clinical indication); or iterative reconstruction.
--- NOTE | 2020-07-08 20:29 | ED.GENADUL_ITS ---
Discharge Plan Disposition Patient Disposition: [facility] INPATIENT Condition: Poor Discharge Details Clinical Impression: Acute hepatic encephalopathy Primary Care Provider: Ling Pepe ED Provider: Betsy Roland Home Meds and New Rx's Prescriptions: No Action sofosbuvir-velpatasvir [Epclusa] 400-100 mg tablet 1 tab PO DAILY RF: 0 spironolactone 100 mg tablet 50 mg PO DAILY RF: 0 furosemide 80 mg tablet 80 mg PO DAILY RF: 0 nitroglycerin 0.4 mg Tablet, Sublingual 0.4 mg SUBLINGUAL Q5M PRNRF: 0 Xifaxan 550 mg tablet 550 mg PO BID RF: 0 lactulose 20 gram/30 mL Solution 20 g PO TID RF: 0 metoprolol succinate 100 mg tablet extended release 24 hr 100 mg PO HS RF: 0 Medical Decision Making <Betsy Roland NP - Last Filed: 07/08/20 21:34> patient presents with acute confusion most likely d/t hepatic encephalopathy. IV established, labs drawn. head CT shows no acute pathology. labs notable for elevated ammonia level at 197, liver and kidney function stable from 4 days ago. potassium 2.9, 10 meq IV PB give. diagnostic paracentesis by Dr Narvaez after he obtains consent from her , p atient also agreeable. Dr Gould given report and care of patient who will be admitted for hepatic encephalopathy. Medical Records Medical records reviewed: Yes I reviewed the patient's medical records. Lab Data Lab results reviewed: Yes I reviewed the patient's lab results. Lab results narrative: Laboratory Results - last 24 hr 07/08/20 07/08/20 07/08/20 20:30 20:30 20:30 WBC 5.67 RBC 2.86 L Hgb 9.7 L Hct 28.6 L MCV 100.0 H MCH 33.9 H MCHC 33.9 RDW 15.3 H Plt Count 125 L MPV 11.3 H Immature Gran % 0.5 Neutrophils % 61.0 Lymphocytes % 21.3 Monocytes % 13.8 Eosinophils % 2.3 Basophils % 1.1 Nucleated RBC % 0 Absolute Neutrophils 3.46 Absolute Lymphocytes 1.21 Absolute Monocytes 0.78 Absolute Eosinophils 0.13 Absolute Basophils 0.06 PT INR Sodium 135 L Potassium 2.9 L* Chloride 102 Carbon Dioxide 25.4 Anion Gap 7.6 BUN 49 H Creatinine 2.34 H Estimated GFR/1.73 m2 21.74 Glucose 101 Calcium 8.7 Magnesium Total Bilirubin 3.6 H AST 46 H ALT 30 Alkaline Phosphatase 156 H Ammonia 197 H Total Protein 6.3 L Albumin 2.6 L 07/08/20 07/08/20 20:30 20:30 WBC RBC Hgb Hct MCV MCH MCHC RDW Plt Count MPV Immature Gran % Neutrophils % Lymphocytes % Monocytes % Eosinophils % Basophils % Nucleated RBC % Absolute Neutrophils Absolute Lymphocytes Absolute Monocytes Absolute Eosinophils Absolute Basophils PT 14.5 H INR 1.5 H Sodium Potassium Chloride Carbon Dioxide Anion Gap BUN Creatinine Estimated GFR/1.73 m2 Glucose Calcium Magnesium 1.8 Total Bilirubin AST ALT Alkaline Phosphatase Ammonia Total Protein Albumin <Tavo Narvaez MD - Last Filed: 07/08/20 21:56> Dr. Gould requested a therapeutic paracentesis to evaluate for possible sbp. I obtained verbal consent from the patient's after discussing risks and benefits of paracentesis which she has had in the past and he agreed for the procedure. Using sterile technique I injected 5cc of lidocaine in the right oblique area after visualizing ascites on u/s. Using a 20g needle under sterile technique using chlorhexidine prior I tried twice to obtain fluid but patient would roll and wasn't following commands due to the encephalopathy. Discussed with Dr. Gould this and after discussion with Dr. Carey will have it performed tomorrow when she comes in HPI <Betsy Roland NP - Last Filed: 07/08/20 21:34> General Date/Time Provider Initiated Documentation: 07/08/20 19:47 . Limitations to Documentation: altered mental status . Information obtained by: family . HPI Narrative: Patient is a 55-year-old female with multiple chronic medical problems including advanced hepatic cirrhosis, anxiety, atrial fibrillation, CKD, recurrent pleural effusions and ascites requiring paracentesis who presents to the ED by private vehicle with her for increased confusion. Patient had 5 L removed during a paracentesis with Dr. Wade several days ago, a drainage bag was placed on her abdomen to help contain continued leakage but this has been removed since it has stopped draining. He denies any fever, chest pain, shortness of breath, abdominal pain, vomiting, diarrhea. She denies any recent travel. She states she is chronically on Xifaxin antibiotic. He reports she has taken all of her medications as prescribed and took lactulose today with good bowel movement prior to arrival. Related Data Home Medications Medication Instructions Recorded Confirmed Xifaxan 550 mg PO BID 04/18/20 07/08/20 furosemide 80 mg PO DAILY 04/18/20 07/08/20 lactulose 20 g PO TID 04/18/20 07/08/20 nitroglycerin 0.4 mg SUBLINGUAL Q5M PRN 04/18/20 07/08/20 spironolactone 50 mg PO DAILY 04/18/20 07/08/20 metoprolol succinate 100 mg PO HS 06/15/20 07/08/20 sofosbuvir 400 mg-velpatasvir 100 1 tab PO DAILY 06/29/20 07/08/20 mg tablet Allergies Allergy/AdvReac Type Severity Reaction Status Date / Time amphetamine aspartate Allergy Severe Facial Unverified 06/30/20 08:32 [From Adderall] Swelling, Blisters, Tongue Swelling, Rash, amphetamine sulfate Allergy Severe Facial Unverified 06/30/20 08:32 [From Adderall] Swelling, Blisters, Tongue Swelling, Rash, dextroamphetamine saccharate Allergy Severe Facial Unverified 06/30/20 08:32 [From Adderall] Swelling, Blisters, Tongue Swelling, Rash, dextroamphetamine sulfate Allergy Severe Facial Unverified 06/30/20 08:32 [From Adderall] Swelling, Blisters, Tongue Swelling, Rash, Penicillins Allergy Intermediate Hives, Unverified 06/30/20 08:32 Rash, Tongue Swelling codeine AdvReac Mild Constipatio Unverified 06/30/20 08:32 n General Stated Complaint: AMS/LOC JOE: 2 Review of Systems <Betsy Roland NP - Last Filed: 07/08/20 21:34> Unobtainable due to mental status PFSH <Betsy Roland NP - Last Filed: 07/08/20 21:34> Medical History Advanced hepatic cirrhosis Hep C & ETOH Anxiety Atrial fibrillation with controlled ventricular rate Attention deficit hyperactivity disorder, combined type Cholestasis of Chronic hepatitis C CKD (chronic kidney disease) stage 4, GFR 15-29 ml/min COVID-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 History of abdominal paracentesis Irritable colon Nephrotic syndrome Pleural effusion associated with hepatic disorder Renal failure syndrome Surgical History section x2 History of thoracentesis Hx of tubal ligation Family History Mother Hypertensive disorder, systemic arterial Father Hypertensive disorder, systemic arterial Social History Smoking/Tobacco Use Status: Former Tobacco Use Quit Date: 09/18/18 Alcohol Intake: former Drug use: Never Substance use type: does not use Do you feel safe at home: Yes Do you feel safe in your relationship?: Yes 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 <Betsy Roland NP - Last Filed: 07/08/20 21:34> Const General: frail appearing and ill appearing acutely and chronically Nutritional Appearance: average body habitus Orientation: awake and confused HENMT Head: normal to inspection, normocephalic and atraumatic Mouth: oral mucosa abnormal (dry) Eyes Sclera: scleral abnormality (icteric) bilaterally Resp Effort & Inspection: normal respiratory effort Cardio Rate: regular rate Rhythm: regular rhythm GI Inspection: distended Palpation: ascites Skin General skin exam: jaundice Neuro General: patient awake Cognition: abnormal cognition (confused,encephlopathic) Course <Betsy Roland NP - Last Filed: 07/08/20 21:34> Vital Signs Vital signs: Vital Signs Temperature 37.3 C 07/08/20 19:46 Pulse 93 H 07/08/20 19:46 Respiratory Rate 18 07/08/20 19:46 Blood Pressure 100/70 07/08/20 19:46 Pulse Oximetry 98 07/08/20 19:46 Temperature 37.3 C 07/08/20 19:46 Temperature Source Skin 07/08/20 19:46 Pulse 93 H 07/08/20 19:46 Respiratory Rate 18 07/08/20 19:46 Respiratory Effort Non-Labored 07/08/20 19:52 Respiratory Depth Normal 07/08/20 19:52 Respiratory Pattern Normal 07/08/20 19:52 Blood Pressure 100/70 07/08/20 19:46 Blood Pressure Position Sitting 07/08/20 19:46 Pulse Oximetry 98 07/08/20 19:46 Oxygen Delivery Method Room Air 07/08/20 19:46 Oxygen Flow Rate 0 07/08/20 19:46
--- NOTE | 2020-07-08 20:29 | DI.VRAD_ITS ---
PROCEDURE INFORMATION: Exam: CT Head Without Contrast Exam date and time: 07/08/2020 8:05 PM Age: 55 years old Clinical indication: Altered mental status/memory loss; Confusion or disorientation TECHNIQUE: Imaging protocol: Computed tomography of the head without contrast. Radiation optimization: All CT scans at this facility use at least one of these dose optimization techniques: automated exposure control; mA and/or kV adjustment per patient size (includes targeted exams where dose is matched to clinical indication); or iterative reconstruction. COMPARISON: CT HEAD WO 06/20/2020 5:00 PM FINDINGS: Brain: No acute intracranial hemorrhage, mass-effect, midline shift, or extra-axial collection is seen. The hammonds white matter differentiation appears preserved. Cerebral ventricles: The ventricular system and basilar cisterns appear appropriate in size and configuration. Bones/joints: The bony calvarium appears intact. No depressed skull fracture is seen. Paranasal sinuses: The visualized paranasal sinuses appear well-aerated. Mastoid air cells: There is a small amount of fluid layering in the posterior right mastoid air cells. There is opacification of few left-sided mastoid air cells as well. Auditory system: The middle ear cavities appear clear. Soft tissues: No significant scalp lesion is seen. IMPRESSION: 1. No acute intracranial abnormality seen. 2. Small amount of fluid in the right mastoid air cells with opacification of a few left-sided mastoid air cells as well. Clinical correlation is recommended to distinguish bilateral mastoid effusions from acute mastoiditis. Dictated and Authenticated by: Christiano Dunham MD. Ordering:JOSE Meyer MD
[2020-07-08 20:37] LABS: Abs Immature Grans 0.03 10^3/uL (0.0-0.06); Absolute Basophil Count 0.06 10^3/uL (0.0-0.2); Absolute Eosinophil Count 0.13 10^3/uL (0.0-0.7); Absolute Lymphocyte Count 1.21 10^3/uL (1.2-3.4); Absolute Monocyte Count 0.78 10^3/uL (0.1-0.8); Absolute Neutrophil Count 3.46 10^3/uL (1.2-6.7); Basophils % 1.1; Eosinophils % 2.3; HCT 28.6 % (36.0-46.0); HGB 9.7 g/dL (11.2-15.7); Immature Grans % 0.5; Lymphocytes % 21.3; MCH 33.9 pg (27.0-33.0); MCHC 33.9 % (32.0-36.0); MPV 11.3 fL (8.0-11.0); Monocytes % 13.8; Nucleated RBC 0 %; Platelet Count 125 10^3/uL (130-400); RBC 2.86 10^6/uL (3.93-5.22); RDW 15.3 % (11.7-14.6); RDW-SD 56.9 fL; WBC 5.67 10^3/uL (4.4-10.8)
[2020-07-08 20:47] LABS: INR 1.5 (0.9-1.1); Prothrombin Time 14.5 sec (9.3-11.0)
[2020-07-08 20:49] LABS: Ammonia 197 umol/L (11-32)
[2020-07-08 20:52] LABS: ALT 30 U/L (14-59); AST 46 U/L (15-37); Albumin 2.6 g/dL (3.4-5.0); Alkaline Phosphatase 156 U/L (46-116); Anion Gap 7.6 mmol/L (3-11); BUN 49 mg/dL (7-18); Bilirubin, Total 3.6 mg/dL (0.2-1.0); CO2 25.4 mmol/L (21.0-32.0); CREATININE 2.34 mg/dL (0.55-1.02); Calcium 8.7 mg/dL (8.5-10.1); Chloride 102 mmol/L (98-107); Estimated GFR 21.74 (mL/min/1.73m2); Glucose 101 mg/dL (74-106); Sodium 135 mmol/L (136-145); Total Protein 6.3 g/dL (6.4-8.2)
[2020-07-08 20:54] LABS: Potassium 2.9 mmol/L (3.5-5.1)
[2020-07-08 21:02] LABS: Magnesium 1.8 mg/dL (1.8-2.4)
[2020-07-08] MEDS: POTASSIUM CHLORIDE 10 MEQ/100 ML BAG 100 MEQ IVPB (21:14)
--- NOTE | 2020-07-08 21:23 | NUR.NOTE ---
Nursing Note: Damir (spouse) can be reached at [phone] for any reason at all.
--- NOTE | 2020-07-08 21:27 | HPE_ITS ---
Date of service: 07/08/20 Time of Service: 21:28 Assessment and Plan Assessment and plan (1) Hepatic encephalopathy: Status: Acute Assessment and plan: Acute on chronic hepatic enephalopathy, no specific precipitant apparent. Will check U/A, UDS and perform diagnostic paracentecis. Will continue usual meds as is for now (appears to be able to take PO so hopefully NGT will not again be required). Will continue potassium replacement. Reviewed ADs with . He states wishes Full Code and likewise endorses this position. History of Present Illness History of Present Illness Chief Complaint: somnolence Narrative: 7 female with h/o cirrhosis here with 3-4 days of worsening confusion and somnolence. states she has been taking all her usual meds, no new meds. She was actually here in ER three days [employer] and left AMA. Also had therapeutic paracentecis nine days [employer]. Here in ER lab w/u all at or near baseline with exception of K 2.9, and ammonia 197. Has been given 10 KCl IV, along with 30 cc Lactulose. Admitted for further management. Review of Systems Unobtainable due to mental status [facility] Medical History Advanced hepatic cirrhosis Hep C & ETOH Anxiety Atrial fibrillation with controlled ventricular rate Attention deficit hyperactivity disorder, combined type Cholestasis of Chronic hepatitis C CKD (chronic kidney disease) stage 4, GFR 15-29 ml/min COVID-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 History of abdominal paracentesis Irritable colon Nephrotic syndrome Pleural effusion associated with hepatic disorder Renal failure syndrome Surgical History section x2 History of thoracentesis Hx of tubal ligation Family History Mother Hypertensive disorder, systemic arterial Father Hypertensive disorder, systemic arterial Social History Smoking/Tobacco Use Status: Former Tobacco Use Quit Date: 09/18/18 Alcohol Intake: former Drug use: Never Substance use type: does not use Do you feel safe at home: Yes Do you feel safe in your relationship?: Yes 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 Home Medications and Allergies Home Medications Medication Instructions Recorded Confirmed Type Xifaxan 550 mg PO BID 08/01/20 10/21/20 History furosemide 80 mg PO DAILY 04/18/20 07/08/20 History lactulose 20 g PO TID 04/18/20 07/08/20 History nitroglycerin 0.4 mg SUBLINGUAL Q5M PRN 04/18/20 07/08/20 History spironolactone 50 mg PO DAILY 04/18/20 07/08/20 History metoprolol succinate 100 mg PO HS 06/15/20 07/08/20 History sofosbuvir 400 mg-velpatasvir 100 1 tab PO DAILY 06/29/20 07/08/20 History mg tablet Allergies Allergy/AdvReac Type Severity Reaction Status Date / Time amphetamine aspartate Allergy Severe Facial Unverified 06/30/20 08:32 [From Adderall] Swelling, Blisters, Tongue Swelling, Rash, amphetamine sulfate Allergy Severe Facial Unverified 06/30/20 08:32 [From Adderall] Swelling, Blisters, Tongue Swelling, Rash, dextroamphetamine saccharate Allergy Severe Facial Unverified 06/30/20 08:32 [From Adderall] Swelling, Blisters, Tongue Swelling, Rash, dextroamphetamine sulfate Allergy Severe Facial Unverified 06/30/20 08:32 [From Adderall] Swelling, Blisters, Tongue Swelling, Rash, Penicillins Allergy Intermediate Hives, Unverified 06/30/20 08:32 Rash, Tongue Swelling codeine AdvReac Mild Constipatio Unverified 06/30/20 08:32 n Exam Narrative Exam Narrative: 103/66, 93, 36.6, 19, 100% RA. HEENT atraumatic, jaundicied; neck supple; lungs grossly clear (limited effort) heart RRR; abdomen moderate ascites, soft and NT; neuro Ox1, perseverating, moves all 4s, + asterixis Results Labs Result diagrams: 07/08/20 20:30 07/08/20 20:30 Labs: Laboratory Results - last 24 hr 07/08/20 07/08/20 07/08/20 20:30 20:30 20:30 WBC 5.67 RBC 2.86 L Hgb 9.7 L Hct 28.6 L MCV 100.0 H MCH 33.9 H MCHC 33.9 RDW 15.3 H Plt Count 125 L MPV 11.3 H Immature Gran % 0.5 Neutrophils % 61.0 Lymphocytes % 21.3 Monocytes % 13.8 Eosinophils % 2.3 Basophils % 1.1 Nucleated RBC % 0 Absolute Neutrophils 3.46 Absolute Lymphocytes 1.21 Absolute Monocytes 0.78 Absolute Eosinophils 0.13 Absolute Basophils 0.06 PT INR Sodium 135 L Potassium 2.9 L* Chloride 102 Carbon Dioxide 25.4 Anion Gap 7.6 BUN 49 H Creatinine 2.34 H Estimated GFR/1.73 m2 21.74 Glucose 101 Calcium 8.7 Magnesium Total Bilirubin 3.6 H AST 46 H ALT 30 Alkaline Phosphatase 156 H Ammonia 197 H Total Protein 6.3 L Albumin 2.6 L 07/08/20 07/08/20 20:30 20:30 WBC RBC Hgb Hct MCV MCH MCHC RDW Plt Count MPV Immature Gran % Neutrophils % Lymphocytes % Monocytes % Eosinophils % Basophils % Nucleated RBC % Absolute Neutrophils Absolute Lymphocytes Absolute Monocytes Absolute Eosinophils Absolute Basophils PT 14.5 H INR 1.5 H Sodium Potassium Chloride Carbon Dioxide Anion Gap BUN Creatinine Estimated GFR/1.73 m2 Glucose Calcium Magnesium 1.8 Total Bilirubin AST ALT Alkaline Phosphatase Ammonia Total Protein Albumin Last Vital Signs Temp 37.3 C 07/08/20 19:46 Pulse 93 H 07/08/20 21:15 Resp 19 07/08/20 21:18 BP 103/66 07/08/20 21:15 Pulse Ox 100 07/08/20 21:18 COVID-19 Screening Have you,or household,traveled outside [place] in last 14 days?: No Had IN PERSON contact w/suspected or confirmed C-19 person: No
--- NOTE | 2020-07-08 21:44 | NUR.NOTE ---
Nursing Note: Assisted Dr Narvaez with diagnostic paracentesis with no success. Patient was moving too much to obtain sample. Lights turned off now for patient comfort.
[2020-07-08] MEDS: Potassium Chloride 20 MEQ TABCR PO ×2 (22:23→23:36)
[2020-07-08] MEDS: Lactulose 20 GM/30 ML CUP PO (22:25)
[2020-07-08 22:27] LABS: Bilirubin Negative (Negative); Blood Negative (Negative); Clarity Clear (Clear); Glucose Negative (Negative); Ketones Negative (Negative); Leukocyte Esterase Trace (Negative); Nitrite Negative (Negative); Specific Gravity 1.015 (1.005-1.025); Urobilinogen 0.2 EU/dL (Up TO 0.2); pH 6.5 (5-8)
[2020-07-08 22:35] LABS: Epithelial Cells Many HPF (Negative)
[2020-07-08 22:36] LABS: C & S Indicated? No/Sq. Contamination
[2020-07-08 22:51] LABS: *AMPHETAMINES SCREEN URINE Negative (Negative); *BARBITURATES SCREEN URINE Negative (Negative); *BENZODIAZEPINES SCREEN URINE Negative (Negative); Cannabinoids THC Negative (Negative); Cocaine Screen,Urine Negative (Negative); METHADONE URINE SCREEN Negative (Negative); OPIATES URINE SCREEN Negative (Negative)
[2020-07-08 23:01] LABS: Tricyclic Antidepressants Negative (Negative)
--- NOTE | 2020-07-08 23:30 | NUR.NOTE ---
At approx 2235 pt brought to ICU room 215. Transfered from stretcher to bed via slide board. VS as follows: HR 86 BP 106/71 Temp 37.1 O2 Sat 99% RA RR 20. Pt resting comfortably on bed.
[2020-07-08] MEDS: Metoprolol CR 100 MG TABCR PO (23:33)
[2020-07-09] VITALS (12 sets, daily range): BP systolic 93–120; BP diastolic 53–75; PULSE 55–91; RESP 11–16; TEMP 36.4–36.7; O2SAT 96–100
[2020-07-09 06:34] LABS: HCT 27.2 % (36.0-46.0); MCH 33.2 pg (27.0-33.0); MCHC 33.1 % (32.0-36.0); MCV 100.4 fL (80-95); RBC 2.71 10^6/uL (3.93-5.22); RDW 15.3 % (11.7-14.6); RDW-SD 56.1 fL; WBC 4.84 10^3/uL (4.4-10.8)
[2020-07-09 06:44] LABS: Anion Gap 8.4 mmol/L (3-11); BUN 49 mg/dL (7-18); CO2 23.6 mmol/L (21.0-32.0); CREATININE 2.17 mg/dL (0.55-1.02); Calcium 8.5 mg/dL (8.5-10.1); Chloride 105 mmol/L (98-107); Estimated GFR 23.72 (mL/min/1.73m2); Glucose 93 mg/dL (74-106); Potassium 3.2 mmol/L (3.5-5.1); Sodium 137 mmol/L (136-145)
[2020-07-09 07:17] LABS: Platelet Count 96 10^3/uL (130-400)
[2020-07-09] MEDS: Furosemide 80 MG TAB PO (08:37)
[2020-07-09] MEDS: Spironolactone 50 MG TAB PO (08:37)
[2020-07-09] MEDS: Lactulose 20 GM/30 ML CUP PO (08:37)
[2020-07-09] MEDS: Rifaximin 550 MG TAB PO (08:37)
--- NOTE | 2020-07-09 08:54 | PGE_ITS ---
Date of Service Date of service: 07/09/20 Time of Service: 08:54 Assessment and Plan Assessment and plan (1) Hepatic encephalopathy: Status: Acute Assessment and plan: Continue rifaximin and lactulose. Replace electrolytes. For now will withhold her spironolactone and furosemide. If she is not able to take adequate oral intake we will initiate further IV fluids. I do not feel that her ascites is large enough to require emergent paracentesis. Subjective Subjective Interval history since last seen: Patient presented to the hospital through the emergency department last night brought in by her due to increasing confusion and somnolence. Patient has a known history of cirrhosis and hepatic encephalopathy. Patient allegedly been taken her usual medications of rifaximin and lactulose. Patient was admitted last night by Dr. Gould. This morning the patient is more awake but only oriented to person not to place or circumstance or time. Dr. Guold indicated that surgery was consulted to perform a paracentesis for her ascites but because she was too combative last night it was elected to hold off until today. Patient was restarted on all of her usual medications including her metoprolol Lasix spironolactone rifaximin and lactulose. She was found to be hypokalemic and was given parenteral potassium chloride through her IV last night. Potassium last night was 2.9 and repeat levels 3.2 this morning. Repeat BMP shows an elevated BUN of 49 creatinine 2.17. I discontinued her spironolactone and Lasix because I feel that she is actually intravascularly depleted and may actually need some IV fluids. I have also ordered some additional oral potassium. Exam Narrative Exam Narrative: Middle-age female who appears to be much older than her stated age of 55. She is jaundiced. She is awake but oriented only to person. Lungs are clear to auscultation Heart regular rate and rhythm Abdomen is soft with a positive fluid wave consistent with ascites although her abdomen is not tense and is not tender. Extremities without peripheral edema. Objective Last Vital Signs Temp 36.4 C L 07/09/20 04:44 Pulse 55 L 07/09/20 06:01 Resp 12 07/09/20 06:01 BP 100/53 L 07/09/20 06:01 Pulse Ox 99 07/09/20 06:01 Laboratory Results - last 24 hr 07/08/20 07/08/2007/08/20 20:30 20:30 20:30 WBC 5.67 RBC 2.86 L Hgb 9.7 L Hct 28.6 L MCV 100.0 H MCH 33.9 H MCHC 33.9 RDW 15.3 H Plt Count 125 L MPV 11.3 H Immature Gran % 0.5 Neutrophils % 61.0 Lymphocytes % 21.3 Monocytes % 13.8 Eosinophils % 2.3 Basophils % 1.1 Nucleated RBC % 0 Absolute Neutrophils 3.46 Absolute Lymphocytes 1.21 Absolute Monocytes 0.78 Absolute Eosinophils 0.13 Absolute Basophils 0.06 PT INR Sodium 135 L Potassium 2.9 L* Chloride 102 Carbon Dioxide 25.4 Anion Gap 7.6 BUN 49 H Creatinine 2.34 H Estimated GFR/1.73 m2 21.74 Glucose 101 Calcium 8.7 Magnesium Total Bilirubin 3.6 H AST 46 H ALT 30 Alkaline Phosphatase 156 H Ammonia 197 H Total Protein 6.3 L Albumin 2.6 L Urine Color Urine Clarity Urine pH Ur Specific [place] Urine Protein Urine Ketones Urine Blood Urine Nitrite Urine Bilirubin Urine Urobilinogen Ur Leukocyte Esterase Urine RBC Urine WBC Ur Epithelial Cells Urine Crystals Urine Bacteria Urine Mucus Ur Culture Indicated? Urine Glucose Urine Opiates Screen Urine Methadone Screen Ur Barbiturates Screen Ur Tricyclics Screen Ur Amphetamines Screen U Benzodiazepines Scrn Urine Cocaine Screen Ur THC Screen 07/08/20 07/08/20 07/08/20 20:30 20:30 22:15 WBC RBC Hgb Hct MCV MCH MCHC RDW Plt Count MPV Immature Gran % Neutrophils % Lymphocytes % Monocytes % Eosinophils % Basophils % Nucleated RBC % Absolute Neutrophils Absolute Lymphocytes Absolute Monocytes Absolute Eosinophils Absolute Basophils PT 14.5 H INR 1.5 H Sodium Potassium Chloride Carbon Dioxide Anion Gap BUN Creatinine Estimated GFR/1.73 m2 Glucose Calcium Magnesium 1.8 Total Bilirubin AST ALT Alkaline Phosphatase Ammonia Total Protein Albumin Urine Color Urine Clarity Urine pH Ur Specific [place] Urine Protein Urine Ketones Urine Blood Urine Nitrite Urine Bilirubin Urine Urobilinogen Ur Leukocyte Esterase Urine RBC Urine WBC Ur Epithelial Cells Urine Crystals Urine Bacteria Urine Mucus Ur Culture Indicated? Urine Glucose Urine Opiates Screen Negative Urine Methadone Screen Negative Ur Barbiturates Screen Negative Ur Tricyclics Screen Negative Ur Amphetamines Screen Negative U Benzodiazepines Scrn Negative Urine Cocaine Screen Negative Ur THC Screen Negative 07/08/20 07/09/20 07/09/20 22:15 06:03 06:03 WBC 4.84 RBC 2.71 L Hgb 9.0 L Hct 27.2 L MCV 100.4 H MCH 33.2 H MCHC 33.1 RDW 15.3 H Plt Count 96 L MPV 11.0 Immature Gran % Neutrophils % Lymphocytes % Monocytes % Eosinophils % Basophils % Nucleated RBC % Absolute Neutrophils Absolute Lymphocytes Absolute Monocytes Absolute Eosinophils Absolute Basophils PT INR Sodium 137 Potassium 3.2 L Chloride 105 Carbon Dioxide 23.6 Anion Gap 8.4 BUN 49 H Creatinine 2.17 H Estimated GFR/1.73 m2 23.72 Glucose 93 Calcium 8.5 Magnesium Total Bilirubin AST ALT Alkaline Phosphatase Ammonia Total Protein Albumin Urine Color Yellow Urine Clarity Clear Urine pH 6.5 Ur Specific [place] 1.015 Urine Protein Negative Urine Ketones Negative Urine Blood Negative Urine Nitrite Negative Urine Bilirubin Negative Urine Urobilinogen 0.2 Ur Leukocyte Esterase Trace H Urine RBC Not Applicable Urine WBC Not Applicable Ur Epithelial Cells Many Urine Crystals Not Applicable Urine Bacteria Not Applicable Urine Mucus Not Applicable Ur Culture Indicated? No/sq. contamination Urine Glucose Negative Urine Opiates Screen Urine Methadone Screen Ur Barbiturates Screen Ur Tricyclics Screen Ur Amphetamines Screen U Benzodiazepines Scrn Urine Cocaine Screen Ur THC Screen
[2020-07-09] MEDS: Potassium Chloride 20 MEQ TABCR 40 MEQ PO (09:24)
--- NOTE | 2020-07-09 09:41 | W.NUTCONSULT ---
Date of service: 07/09/20 Time of Service: 09:42 Nutritional Consult ASSESSMENT: 55 year old female admitted to ICU after recent hospitalization earlier in month. Admitted with hepatic encephalopathy with long standing history of liver failure, renal failure, CHF s/p paracentesis. Weight has greatly fluctuated in past months due to fluid shifts. Following Low sodium diet (currentlly on clears) with 2000 ml fluid restriction. Recommend 1500 ml fluid restriction once advanced to solids in view of fluid needs. Estimated Needs: [id number] kcal, 60-70 g protein, 1500 ml fluid. NUTRITIONAL DIAGNOSIS: Impaired nutrient utilization in view of liver/renal failure INTERVENTION: Low sodium diet 1500 ml fluid restriction MONITORING AND EVALUATION: will monitor po intake, labs, weight and Time Spent in Nutritional Counseling and Treatment: 0 time spent face to face
--- NOTE | 2020-07-09 09:58 | INITIAL_ITS ---
- If Service Date Differs Date of service: 07/09/20 Time of Service: 16:13 Care Management Initial Assess REASON FOR HOSPITALIZATION:: Hepatic Encephalopathy PAST MEDICAL HISTORY/PAST SURGICAL HISTORY:: Medical History: Advanced hepatic cirrhosis - Hep C & ETOH, Anxiety,. Atrial fibrillation with controlled ventricular rate, Attention deficit hyperactivity disorder, combined type, Cholestasis of , Chronic hepatitis C, CKD (chronic kidney disease) stage 4, GFR 15-29 ml/min,. COVID-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, Irritable colon, Nephrotic syndrome, Pleural effusion associated with hepatic disorder, and Renal failure syndrome. Surgical History: section x2 and Hx of tubal ligation. PREVIOUS FUNCTIONAL STATUS/SOCIAL/FAMILY SUPPORTS:: Erin resides in [place] with her , Isaac. 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 Erin drives and is independent at baseline. CURRENT FUNCTIONAL STATUS:: unable to meet with Erin due to pending Covid-19 test results. ADVANCE DIRECTIVES:: None on file. Has patient been provided with info about the portal/API?: No Did the patient sign up for the portal?: No CODE STATUS:: Full Code INSURANCE COVERAGE / FINANCIAL ISSUES:: Medicare and Medicaid. PRIMARY CARE PHYSICIAN:: Ling Pepe POTENTIAL DISCHARGE NEEDS:: Follow up appointments with PCP, surgeon, [facility] providers, and discharge plan of care. PATIENT/FAMILY EDUCATION NEEDS:: Review discharge instructions, discuss Ask Me Three. ANTICIPATED BARRIERS TO DISCHARGE:: None identified. TRANSPORTATION:: Via private vehicle with her . PLAN:: Patient left AMA.
[2020-07-09 10:21] LABS: Magnesium 1.8 mg/dL (1.8-2.4)
--- NOTE | 2020-07-09 10:54 | PHA.REVIEW ---
Pharmacy Admission Review - Admission Clinical Review (Last Reviewed 07/08/20 @ 21:33 by Paddy Gould MD) Hepatic encephalopathy (Acute) Acute hepatic encephalopathy (Acute) amphetamine aspartate [From Adderall] Allergy (Severe, Unverified 06/30/20 08:32) Facial Swelling, Blisters, Tongue Swelling, Rash, amphetamine sulfate [From Adderall] Allergy (Severe, Unverified 06/30/20 08:32) Facial Swelling, Blisters, Tongue Swelling, Rash, dextroamphetamine saccharate [From Adderall] Allergy (Severe, Unverified 06/30/20 08:32) Facial Swelling, Blisters, Tongue Swelling, Rash, dextroamphetamine sulfate [From Adderall] Allergy (Severe, Unverified 06/30/20 08:32) Facial Swelling, Blisters, Tongue Swelling, Rash, Penicillins Allergy (Intermediate, Unverified 06/30/20 08:32) Hives, Rash, Tongue Swelling codeine Adverse Reaction (Mild, Unverified 06/30/20 08:32) Constipation Height 5 ft 8 in Weight 78.9 kg - Renal Dosing Renal Dosing: BUN 49 mg/dL (7-18) H 07/09/20 06:03 Creatinine 2.17 mg/dL (0.55-1.02) H 07/09/20 06:03 Medications needing adjustments: Reviewed - Anticoagulation Anticoagulation: Hgb 9.0 g/dL (11.2-15.7) L 07/09/20 06:03 Hct 27.2 % (36.0-46.0) L 07/09/20 06:03 Plt Count 96 10^3/uL (130-400) L 07/09/20 06:03 INR 1.5 (0.9-1.1) H 07/08/20 20:30 Creatinine 2.17 mg/dL (0.55-1.02) H 07/09/20 06:03 DVT Prohphylaxis: N/A Therapeutic Anticoagulation: N/A - Relevant Labs Sodium 137 mmol/L (136-145) 07/09/20 06:03 Potassium 3.2 mmol/L (3.5-5.1) L 07/09/20 06:03 Chloride 105 mmol/L (98-107) 07/09/20 06:03 Magnesium 1.8 mg/dL (1.8-2.4) 07/09/20 06:03 - DM Control DM Control: Glucose 93 mg/dL (74-106) 07/09/20 06:03 - BP Control BP Control: Blood Pressure 120/75 Blood Pressure 114/74 Blood Pressure 94/55 Blood Pressure 100/53 Blood Pressure 98/65 Blood Pressure 94/59 Blood Pressure 94/62 Blood Pressure 102/58 Blood Pressure 93/53 Blood Pressure 112/73 If elevated: Reviewed - IV to PO Switch IV Medications: Reviewed - Home Meds Home Med List reviewed: Intervened Relevent Home Meds Not ordered & why?: corrected directions on multiple home meds
[2020-07-09] MEDS: Magnesium Oxide 400 MG TAB PO (11:29)
--- NOTE | 2020-07-09 11:32 | NUR.NOTE ---
Pt expressing that she is feeling better , and I want to go home now Dr. Alfonso notified, nurseing sunpervisor notified.
--- NOTE | 2020-07-09 11:48 | NUR.NOTE ---
Pt's SO, Damir, called re: pt leaving AMA. He asked if she could stay until he arrived at the hospital, approx 45 mins from now, at 1230. pt is less than agreeable with this.
--- NOTE | 2020-07-09 16:11 | DSE_ITS ---
Date of service: 07/09/20 Time of Service: 16:11 DS: Diagnosis Discharge Diagnosis (1) Hepatic encephalopathy: Status: Acute Asessment and Plan: Patient was treated with lactulose and rifaximin. She was given supplemental potassium to correct her hypokalemia. Unfortunately patient left the hospital AGAINST MEDICAL ADVICE before completion of her treatment. Discharge Plan Disposition Patient Disposition: AGAINST MEDICAL ADVICE Condition: Poor Discharge Details Reason For Visit: HEPATIC ENCEPHALOPATHY Admit Date/Time: 07/08/20 21:46 Admit Provider: Paddy Gould Attending Provider: Paddy Gould Primary Care Provider: Ling Pepe Home Meds and New Rx's Prescriptions: No Action sofosbuvir-velpatasvir [Epclusa] 400-100 mg tablet 1 tab PO DAILY RF: 0 spironolactone 100 mg tablet 50 mg PO DAILY RF: 0 furosemide 80 mg tablet 80 mg PO BID RF: 0 nitroglycerin 0.4 mg Tablet, Sublingual 0.4 mg SUBLINGUAL Q5M PRNRF: 0 Xifaxan 550 mg tablet 550 mg PO BID RF: 0 lactulose 20 gram/30 mL Solution 20 g PO QID RF: 0 metoprolol succinate 100 mg tablet extended release 24 hr 100 mg PO HS RF: 0 Discharge Data Discharge Date/Time-TO BE ENTERED AT DEPARTURE: 07/09/20 12:05 DS: Summary Status at Discharge Functional status at discharge: independent ambulation Overall status at discharge: patient is not back to baseline Mental Status: other Speech and Movement: speech and movement normal Mood: labile mood and other Affect: labile affect Time Spent with Patient providing and/or coordinating discharge services: Less than 30 minutes Exam Narrative Exam Narrative: Middle-age female who appears to be much older than her stated age of 55. She is jaundiced. She is awake but oriented only to person. Lungs are clear to auscultation Heart regular rate and rhythm Abdomen is soft with a positive fluid wave consistent with ascites although her abdomen is not tense and is not tender. Extremities without peripheral edema. Psych Mental Status: other Speech and Movement: speech and movement normal Mood: labile mood and other Affect: labile affect DS: Data Vitals/I&O Vitals and I&O: Vital Signs Temperature 36.7 C 07/09/20 08:00 Temperature Source Temporal Artery Scan 07/09/20 08:00 Pulse 80 07/09/20 10:01 Pulse 84 07/09/20 10:07 Respiratory Rate 14 07/09/20 10:01 Respiratory Effort 07/09/20 08:00 Respiratory Depth Normal 07/09/20 08:00 Respiratory Pattern Normal 07/09/20 08:00 Blood Pressure 120/75 07/09/20 10:01 Blood Pressure Mean 81 07/09/20 10:01 Blood Pressure Position Supine 07/09/20 08:00 Pulse Oximetry 100 07/09/20 10:07 Oxygen Delivery Method Room Air 07/09/20 08:00 Oxygen Flow Rate 0 07/09/20 08:00 Pain Level 0 07/09/20 12:07 Intake & Output 07/08/20 07/09/20 07/09/20 23:59 11:59 23:59 Intake Total 100 / 100 200 / 200 Output Total 450 / 450 Balance 100 / 100 -250 / -250 Weight 79.7 kg 78.9 kg Intake: IV 100 / 100 100 / 100 Oral 100 / 100 Output: Urine 450 / 450 Other: Urine Color Yellow Urine Appearance Clear Urine Odor None Comment inc of sm amt of urine [place] [facility] [place] Characteristics Soft Brown Barr Voiding Methods Diaper Data Completed and Pending Labs on day of discharge: Labs from last 24 hours 07/09/20 07/09/20 07/09/20 06:03 06:03 06:03 WBC 4.84 RBC 2.71 L Hgb 9.0 L Hct 27.2 L MCV 100.4 H MCH 33.2 H MCHC 33.1 RDW 15.3 H Plt Count 96 L MPV 11.0 Immature Gran % Neutrophils % Lymphocytes % Monocytes % Eosinophils % Basophils % Nucleated RBC % Absolute Neutrophils Absolute Lymphocytes Absolute Monocytes Absolute Eosinophils Absolute Basophils PT INR Sodium 137 Potassium 3.2 L Chloride 105 Carbon Dioxide 23.6 Anion Gap 8.4 BUN 49 H Creatinine 2.17 H Estimated GFR/1.73 m2 23.72 Glucose 93 Calcium 8.5 Magnesium 1.8 Total Bilirubin AST ALT Alkaline Phosphatase Ammonia Total Protein Albumin Urine Color Urine Clarity Urine pH Ur Specific [place] Urine Protein Urine Ketones Urine Blood Urine Nitrite Urine Bilirubin Urine Urobilinogen Ur Leukocyte Esterase Urine RBC Urine WBC Ur Epithelial Cells Urine Crystals Urine Bacteria Urine Mucus Ur Culture Indicated? Urine Glucose Urine Opiates Screen Urine Methadone Screen Ur Barbiturates Screen Ur Tricyclics Screen Ur Amphetamines Screen U Benzodiazepines Scrn Urine Cocaine Screen Ur THC Screen COVID-19 PCR Nasopharyn COVID-19 PCR Ref Test Perform Site 07/08/20 07/08/20 07/08/20 22:15 22:15 22:10 WBC RBC Hgb Hct MCV MCH MCHC RDW Plt Count MPV Immature Gran % Neutrophils % Lymphocytes % Monocytes % Eosinophils % Basophils % Nucleated RBC % Absolute Neutrophils Absolute Lymphocytes Absolute Monocytes Absolute Eosinophils Absolute Basophils PT INR Sodium Potassium Chloride Carbon Dioxide Anion Gap BUN Creatinine Estimated GFR/1.73 m2 Glucose Calcium Magnesium Total Bilirubin AST ALT Alkaline Phosphatase Ammonia Total Protein Albumin Urine Color Yellow Urine Clarity Clear Urine pH 6.5 Ur Specific [place] 1.015 Urine Protein Negative Urine Ketones Negative Urine Blood Negative Urine Nitrite Negative Urine Bilirubin Negative Urine Urobilinogen 0.2 Ur Leukocyte Esterase Trace H Urine RBC Not Applicable Urine WBC Not Applicable Ur Epithelial Cells Many Urine Crystals Not Applicable Urine Bacteria Not Applicable Urine Mucus Not Applicable Ur Culture Indicated? No/sq. contamination Urine Glucose Negative Urine Opiates Screen Negative Urine Methadone Screen Negative Ur Barbiturates Screen Negative Ur Tricyclics Screen Negative Ur Amphetamines Screen Negative U Benzodiazepines Scrn Negative Urine Cocaine Screen Negative Ur THC Screen Negative COVID-19 PCR Pending Nasopharyn COVID-19 PCR Pending Ref Test Perform Site Pending 07/08/20 07/08/20 07/08/20 20:30 20:30 20:30 WBC 5.67 RBC 2.86 L Hgb 9.7 L Hct 28.6 L MCV 100.0 H MCH 33.9 H MCHC 33.9 RDW 15.3 H Plt Count 125 L MPV 11.3 H Immature Gran % 0.5 Neutrophils % 61.0 Lymphocytes % 21.3 Monocytes % 13.8 Eosinophils % 2.3 Basophils % 1.1 Nucleated RBC % 0 Absolute Neutrophils 3.46 Absolute Lymphocytes 1.21 Absolute Monocytes 0.78 Absolute Eosinophils 0.13 Absolute Basophils 0.06 PT 14.5 H INR 1.5 H Sodium Potassium Chloride Carbon Dioxide Anion Gap BUN Creatinine Estimated GFR/1.73 m2 Glucose Calcium Magnesium 1.8 Total Bilirubin AST ALT Alkaline Phosphatase Ammonia Total Protein Albumin Urine Color Urine Clarity Urine pH Ur Specific [place] Urine Protein Urine Ketones Urine Blood Urine Nitrite Urine Bilirubin Urine Urobilinogen Ur Leukocyte Esterase Urine RBC Urine WBC Ur Epithelial Cells Urine Crystals Urine Bacteria Urine Mucus Ur Culture Indicated? Urine Glucose Urine Opiates Screen Urine Methadone Screen Ur Barbiturates Screen Ur Tricyclics Screen Ur Amphetamines Screen U Benzodiazepines Scrn Urine Cocaine Screen Ur THC Screen COVID-19 PCR Nasopharyn COVID-19 PCR Ref Test Perform Site 07/08/20 07/08/20 20:30 20:30 WBC RBC Hgb Hct MCV MCH MCHC RDW Plt Count MPV Immature Gran % Neutrophils % Lymphocytes % Monocytes % Eosinophils % Basophils % Nucleated RBC % Absolute Neutrophils Absolute Lymphocytes Absolute Monocytes Absolute Eosinophils Absolute Basophils PT INR Sodium 135 L Potassium 2.9 L* Chloride 102 Carbon Dioxide 25.4 Anion Gap 7.6 BUN 49 H Creatinine 2.34 H Estimated GFR/1.73 m2 21.74 Glucose 101 Calcium 8.7 Magnesium Total Bilirubin 3.6 H AST 46 H ALT 30 Alkaline Phosphatase 156 H Ammonia 197 H Total Protein 6.3 L Albumin 2.6 L Urine Color Urine Clarity Urine pH Ur Specific [place] Urine Protein Urine Ketones Urine Blood Urine Nitrite Urine Bilirubin Urine Urobilinogen Ur Leukocyte Esterase Urine RBC Urine WBC Ur Epithelial Cells Urine Crystals Urine Bacteria Urine Mucus Ur Culture Indicated? Urine Glucose Urine Opiates Screen Urine Methadone Screen Ur Barbiturates Screen Ur Tricyclics Screen Ur Amphetamines Screen U Benzodiazepines Scrn Urine Cocaine Screen Ur THC Screen COVID-19 PCR Nasopharyn COVID-19 PCR Ref Test Perform Site [facility] Medical History Advanced hepatic cirrhosis Hep C & ETOH Anxiety Atrial fibrillation with controlled ventricular rate Attention deficit hyperactivity disorder, combined type Cholestasis of Chronic hepatitis C CKD (chronic kidney disease) stage 4, GFR 15-29 ml/min COVID-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 History of abdominal paracentesis Irritable colon Nephrotic syndrome Pleural effusion associated with hepatic disorder Renal failure syndrome Surgical History section x2 History of thoracentesis Hx of tubal ligation Family History Mother Hypertensive disorder, systemic arterial Father Hypertensive disorder, systemic arterial Social History Smoking/Tobacco Use Status: Former Tobacco Use Quit Date: 09/18/18 Alcohol Intake: former Drug use: Never Substance use type: does not use Do you feel safe at home: Yes Do you feel safe in your relationship?: Yes 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
[2020-07-09 20:21] LABS: COVID-19 RT-PCR UVMMC Result Negative (Negative)
== END 2020-07-09 12:05 | disposition left against medical advice (07) | DRG 442 ==
LOC: ER 22:22 → ICU 22:40
PROVIDERS: Internal Medicine; Admitting Provider General Practice; Emergency Provider Nurse Practitioner Acute Care; PCP Nurse Practitioner Family; Visit Provider General Practice
DX: K72.90 Hepatic failure, unspecified without coma (principal); N18.4 Chronic kidney disease, stage 4 (severe); N04.9 Nephrotic syndrome with unspecified morphologic changes; K70.31 Alcoholic cirrhosis of liver with ascites; B18.2 Chronic viral hepatitis C; F41.9 Anxiety disorder, unspecified; I48.91 Unspecified atrial fibrillation; F90.2 Attention-deficit hyperactivity disorder, combined type; K58.9 Irritable bowel syndrome, unspecified; Z87.891 Personal history of nicotine dependence; E87.6 Hypokalemia
CPT/HCPCS: 36415; 80048; 80053; 80307; 85027; 96365; 99222; 99232; 99285; NC; U0003; 70450; 81003; 81015; 82140; 83735; 85025; 85610; 99221; 99238; J3480

== ENCOUNTER → 2020-07-16 10:52 | Outpatient (BNVA) | payer MEDICARE, MEDICAID, SELFPAY | PROVIDERS: PCP Nurse Practitioner Family; Referring Provider Nurse Practitioner Family; Visit Provider Surgery | DX: J90 Pleural effusion, not elsewhere classified (principal) | CPT/HCPCS: 99212 ==

== ENCOUNTER 2020-07-20 16:18 | Outpatient (CLI) | payer MEDICARE, MEDICAID, SELFPAY ==
--- NOTE | 2020-07-20 09:30 | DI.RAD_ITS ---
EXAM: XR CHEST 2V PA LATERAL CLINICAL HISTORY: Follow up right pleural effusion, J90 TECHNIQUE: 2D digital imaging was performed. COMPARISON: CR XR CHEST 2V PA LATERAL from 06/29/2020 FINDINGS: MEDIASTINUM: Normal. HEART: Normal. PULMONARY VASCULATURE: Normal. LUNGS: There has developed a linear infiltrate in the right upper lobe. The left lung remains clear. PLEURAL SPACE: There is is stable right pleural effusion occupying approximately half of the right he mithorax. No left pleural effusion. No pneumothorax. BONE:Within normal limits for the patient's age. Stable right convex scoliosis of the thoracic spine . OTHER FINDINGS:Normal. IMPRESSION: 1. Stable large right pleural effusion. 2. Development of an infiltrate in the right upper lobe which may represent atelectasis or pneumonia. There may also be a small amount of fluid within the fissure. DATA REPOSITORY: RADIATION DOSE DELIVERED:
== END 2020-07-20 16:38 ==
PROVIDERS: PCP Nurse Practitioner Family; Visit Provider Surgery
DX: J90 Pleural effusion, not elsewhere classified (principal); R91.8 Other nonspecific abnormal finding of lung field
CPT/HCPCS: 71046

== ENCOUNTER 2020-07-21 04:10 | Outpatient (CLI) | payer MEDICARE, MEDICAID, SELFPAY ==
[2020-07-21 09:18] LABS: Abs Immature Grans 0.02 10^3/uL (0.0-0.06); Absolute Basophil Count 0.07 10^3/uL (0.0-0.2); Absolute Eosinophil Count 0.19 10^3/uL (0.0-0.7); Absolute Lymphocyte Count 1.73 10^3/uL (1.2-3.4); Absolute Monocyte Count 0.69 10^3/uL (0.1-0.8); Absolute Neutrophil Count 2.63 10^3/uL (1.2-6.7); Basophils % 1.3; Eosinophils % 3.6; HCT 32.3 % (36.0-46.0); HGB 10.5 g/dL (11.2-15.7); Immature Grans % 0.4; Lymphocytes % 32.5; MCH 33.3 pg (27.0-33.0); MCHC 32.5 % (32.0-36.0); MCV 102.5 fL (80-95); MPV 10.4 fL (8.0-11.0); Monocytes % 12.9; Neutrophils % 49.3; Nucleated RBC 0 %; Platelet Count 113 10^3/uL (130-400); RBC 3.15 10^6/uL (3.93-5.22); RDW 15.2 % (11.7-14.6); RDW-SD 56.8 fL; WBC 5.33 10^3/uL (4.4-10.8)
[2020-07-21 09:26] LABS: BUN 28 mg/dL (7-18); CREATININE 1.85 mg/dL (0.55-1.02); Calcium 8.4 mg/dL (8.5-10.1); Chloride 105 mmol/L (98-107); Estimated GFR 28.52 (mL/min/1.73m2); Glucose 101 mg/dL (74-106); Potassium 4.5 mmol/L (3.5-5.1); Sodium 135 mmol/L (136-145)
[2020-07-21 09:28] LABS: INR 1.4 (0.9-1.1); Prothrombin Time 14.3 sec (9.3-11.0)
== END 2020-07-21 04:30 ==
PROVIDERS: PCP Nurse Practitioner Family; Visit Provider Surgery
DX: Z87.19 Personal history of other diseases of the digestive system (principal)
CPT/HCPCS: 36415; 80048; 85025; 85610

== ENCOUNTER 2020-07-23 09:10 | Day surgery (SDC) | payer MEDICARE, MEDICAID, SELFPAY ==
[2020-07-23 09:15] VITALS: BP 118/67; PULSE 81; RESP 16; TEMP 35.6; O2SAT 100
--- NOTE | 2020-07-23 12:31 | W.PM.OP ---
Date of service: 07/23/20 Operative Note Operative Note DATE OF PROCEDURE: 07/23/20 PRE-OP DIAGNOSIS: liver failure/pleural effusion POST-OP DIAGNOSIS: same PROCEDURE: Right thorocentisis SURGEON: Hazel Lindsey ANESTHESIA: local ESTIMATED BLOOD LOSS: 1 PATHOLOGY: none sent Patient was transported to: same day Procedure Description: Pt is here today for thoracentesis for symptoms of shortness of breath. Chest x-ray was reviewed prior to beginning the procedure. Informed consent was obtained explaining risks and benefits of the procedure, including but not limited to bleeding, infection, pneumothorax, recurrence, complications of anesthesia, and other unforetold complications. PROCEDURE: The patient is brought to the procedure room and placed in the seated position. Ultrasound is used to localize the pocket on the right chest. The area is marked and then prepped and draped in the usual sterile fashion using a ChloraPrep scrub solution. 10 cc's of 1% Lidocaine is used to anesthetize the T10 interspace. The small chai is made with a #11 blade. The needle and catheter is then inserted over the top of the rib, aspirating as it is inserted. The needle is then removed. The catheter is then hooked up to the Vacutainer system and 3200 cc's of straw-colored fluid is evacuated. The catheter is removed; pressure is held. Sterile compression dressing is applied. Portable chest x-ray shows no pneumothorax. Pt is given instructions in wound care, activity, medications, and warning signs: SOB, increasing in pain, chest pain, redness or temperature- if these occur, come to ED.
--- NOTE | 2020-07-23 12:42 | ROE_ITS ---
Date of service: 07/23/20 Time of Service: 12:42 Operative Note Operative Note DATE OF PROCEDURE: 07/23/20 PRE-OP DIAGNOSIS: liver failure POST-OP DIAGNOSIS: same PROCEDURE: paracentisis SURGEON: Hazel Lindsey ANESTHESIA: local ESTIMATED BLOOD LOSS: 1 PATHOLOGY: none sent Patient was transported to: same day Implants: paracentisis Procedure Description: The patient is brought to the procedure room and placed in the supine position. Placement chosen on top in the right upper quadrant. A time-out is done. Ultrasound is used to localize the pocket. The area is pr epped and draped in the usual sterile fashion using a ChloraPrep scrub solution. 20 cc's of 1% Lidocaine with epinephrine is used for local anesthetization. The abdomen is punctured and the catheter is inserted. 3 liters of light yellow fluid is evacuated today. The catheter is removed. Pressure dressing is applied. The patient tolerated the procedure well without complication.
--- NOTE | 2020-07-23 12:50 | W.PM.DSUDISC ---
Discharge Plan Disposition Patient Disposition: HOME Condition: Fair Discharge Details Reason For Visit: (R) PLEURAL EFFUSION,ASCITES Attending Provider: Hazel Lindsey Primary Care Provider: Ling Pepe Home Meds and New Rx's Prescriptions: No Action potassium chloride 10 mEq capsule, extended release 10 meq PO DAILY RF: 0 sofosbuvir-velpatasvir [Epclusa] 400-100 mg tablet 1 tab PO DAILY RF: 0 spironolactone 100 mg tablet 50 mg PO DAILY RF: 0 furosemide 80 mg tablet 80 mg PO BID RF: 0 nitroglycerin 0.4 mg Tablet, Sublingual 0.4 mg SUBLINGUAL Q5M PRNRF: 0 Xifaxan 550 mg tablet 550 mg PO BID RF: 0 lactulose 20 gram/30 mL Solution 20 g PO QID RF: 0 metoprolol succinate 100 mg tablet extended release 24 hr 100 mg PO HS RF: 0 Discharge Instructions Additional Instructions: Follow up: w/ medical team as directed Please call if you develop: fevers >101.5 Nausea or Vomiting Abdominal pain that is not transient DAY SURGERY UNIT 1. Please do not: a. Do not drive or operate dangerous equipment for 24 hours. b. Do not drink alcohol beverages for 24 hours (not even beer). c. Plan to go home and rest for the day. 2. Generally there are no restrictions on your activity after a day or so has gone by, but you may feel a bit fatigued for a few days. 3 After you arrive home you may have a light meal and return to a normal diet as you can tolerate it without feeling sick to your stomach. 4. After surgery, you may feel pain or discomfort. This should be only transient, but if it persists please contact your doctor. 5. If there are any questions regarding the findings of your procedure, please feel free to contact your doctor. 6. If you are unable to contact your doctor with a problem, contact the hospital at [phone]. 7. Continue all your regular medications unless directed otherwise. I understand the above instructions and have no questions. Signature of Patient or Responsible Adult Escort Date/Time Name of Responsible Adult Escort Signature of Nurse Date/Time Activity:: No lifting over 20 pounds or strenuous activity x24 hours Remove Dressings/Wound Care:: 24 hours Shower/Bathe:: 24 hours Diet:: low salt/fluid restrictions Discharge Orders Discharge Orders: Discharge Order (Routine); Ordered 07/23/20 Ordered By: Hazel Lindsey DS: Diagnosis Discharge Diagnosis (1) Cardiomyopathy: Status: Active (2) Congestive heart failure: Status: Active (3) Pleural effusion: Status: Active (4) Viral hepatitis C: Status: Active (5) CKD (chronic kidney disease) stage 4, GFR 15-29 ml/min: Status: Acute (6) Advanced hepatic cirrhosis: Status: Chronic (7) Nephrotic syndrome: Status: Acute (8) Cirrhosis of liver with ascites: Status: Acute
[2020-07-23] MEDS: Normal Saline Flush 10 ML SYR IV (12:59)
[2020-07-23] MEDS: ALBUMIN HUMAN 25 GM/100 ML BTL IV ×2 (13:00→13:47)
--- NOTE | 2020-07-23 13:05 | DI.RAD_ITS ---
EXAM: XR PORTABLE CHEST AP POST LINE CLINICAL HISTORY: s/p thorocentiscisis TECHNIQUE: 2D digital imaging was performed. COMPARISON: CR,XR XR PORTABLE CHEST AP POST LINE from 06/22/2020 CR,XR XR PORTABLE CHEST AP POST LINE from 06/22/2020 CR XR CHEST 2V PA LATERAL from 06/29/2020 CR XR CHEST 2V PA LATERAL from 07/20/2020 FINDINGS: MEDIASTINUM: Normal. HEART: Normal. PULMONARY VASCULATURE: Normal. LUNGS: Clear. PLEURAL SPACE: No pleural effusion or pneumothorax. The patient is status post right thoracentesis. There is no right pleural effusion present. BONE:Within normal limits for the patient's age. OTHER FINDINGS:Normal. IMPRESSION: Status post right thoracentesis without evidence of pneumothorax. DATA REPOSITORY: RADIATION DOSE DELIVERED:
[2020-07-23 13:45] VITALS: BP 104/67; PULSE 90; RESP 18; TEMP 36.3; O2SAT 97
== END 2020-07-23 14:15 | disposition home or self-care (01) ==
PROVIDERS: PCP Nurse Practitioner Family; Visit Provider Surgery
PROC: (CPT 32554; principal; 2020-07-23 10:30)
PROC: 0W9G3ZZ Drainage of Peritoneal Cavity, Percutaneous Approach (ICD-10-PCS; CPT 49082; 2020-07-23 10:30)
DX: K72.90 Hepatic failure, unspecified without coma (principal); R18.8 Other ascites; J91.8 Pleural effusion in other conditions classified elsewhere
CPT/HCPCS: 49083; 32555; 71045

== ENCOUNTER → 2020-07-30 09:49 | Outpatient (BNVA) | payer MEDICARE, MEDICAID, SELFPAY | PROVIDERS: PCP Nurse Practitioner Family; Referring Provider Nurse Practitioner Family; Visit Provider Surgery | DX: J90 Pleural effusion, not elsewhere classified (principal); K74.60 Unspecified cirrhosis of liver; R18.8 Other ascites | CPT/HCPCS: 99212 ==

== ENCOUNTER 2020-08-03 10:57 | Emergency (ER) | payer MEDICARE, MEDICAID, SELFPAY ==
[2020-08-03] VITALS (26 sets, daily range): BP systolic 53–127; BP diastolic 43–71; PULSE 71–111; RESP 12–33; TEMP 37; O2SAT 90–100
--- NOTE | 2020-08-03 11:15 | RT.EKG_ITS ---
APPROVED REPORT Exam: Resting ECG Patient Location: E HR:74 bpm ECG Measurements Heart Rate 74 AXIS NV [id number] P [id number] QRSd 97 QRS 64 QT 399 T [id number] QTc 444 Conclusion Atrial fibrillation...V-rate 54-101, irreg A-activity Ventricular premature complex...V complex w/ short R-R interval Low voltage, extremity and precordial leads...extremity<0.5mV, precordial<1.0mV Nonspecific T abnormalities, lateral leads...T <-0.10mV, I aVL V5 V6 A. fib at 74 with occasional PVC, normal axis, low voltage present on prior 07/03, nonspecific ST ab normalities, no STEMI, nondiagnostic EKG
--- NOTE | 2020-08-03 11:15 | DI.RAD_ITS ---
EXAM: XR CHEST 2V PA LATERAL CLINICAL HISTORY: SOB TECHNIQUE: 2D digital imaging was performed. COMPARISON: CR XR CHEST 2V PA LATERAL from 07/20/2020 FINDINGS: MEDIASTINUM: Normal. HEART: Normal. PULMONARY VASCULATURE: Normal. LUNGS: Clear. PLEURAL SPACE: There is a large right pleural effusion occupying 2/3 of the right hemithorax. No pne umothorax. BONE:Within normal limits for the patient's age. There is an S-type thoracolumbar scoliosis. OTHER FINDINGS:Normal. IMPRESSION: Large right pleural effusion. DATA REPOSITORY: RADIATION DOSE DELIVERED:
--- NOTE | 2020-08-03 11:25 | W.ED.GENAD ---
Discharge Plan Disposition Patient Disposition: HOME Condition: Stable Discharge Details Clinical Impression: Pleural effusion, Hypokalemia, Ascites Primary Care Provider: Ling Pepe ED Provider: Sabrina Leiva Home Meds and New Rx's Prescriptions: Continued potassium chloride 10 mEq capsule, extended release 10 meq PO DAILY RF: 0 sofosbuvir-velpatasvir [Epclusa] 400-100 mg tablet 1 tab PO DAILY RF: 0 spironolactone 100 mg tablet 50 mg PO DAILY RF: 0 furosemide 80 mg tablet 80 mg PO BID RF: 0 nitroglycerin 0.4 mg Tablet, Sublingual 0.4 mg SUBLINGUAL Q5M PRNRF: 0 Xifaxan 550 mg tablet 550 mg PO BID RF: 0 lactulose 20 gram/30 mL Solution 20 g PO QID RF: 0 metoprolol succinate 100 mg tablet extended release 24 hr 100 mg PO HS RF: 0 Discharge Instructions Instructions: Hypokalemia (ED), Pleural Effusion (ED), Ascites (ED), Paracentesis (DC), Thoracentesis (DC) Additional Instructions: You have an appointment with palliative care at 8:00 in the morning on Monday, August 05. Referrals: Ling Pepe [Primary Care Provider] - Tatianna Ramirez MD, KATHLEEN [[facility]] - Discharge Data Discharge Date/Time-TO BE ENTERED AT DEPARTURE: 08/03/20 14:59 Medical Decision Making Erin De Leon is a 55-year-old woman with a history of advanced liver cirrhosis and need for recurrent thoracentesis, paracentesis who presented to the emergency department with shortness of breath of the past few days that she attributes to needing thoracentesis/paracentesis. Upon record review patient was seen by surgery 07/30/2020 with same symptoms, was told that she did not need to have thoracentesis/paracentesis for at least 1 to 2 weeks. On exam patient is somewhat chronically ill but acutely nontoxic appearing. There is no respiratory distress. Decreased lung sounds on the right. Abdomen with mild to moderate distention, soft and not taut, nontender to palpation. Concern for recurrent pleural effusion, less likely CHF, metabolic/lyte disturbance, other. Doubt pulmonary embolism, acute coronary syndrome. Doubt respiratory infection. Exam/history at this time is not consistent with sepsis, spontaneous bacterial peritonitis, acute aortic pathology. Chest x-ray shows large right-sided pleural effusion. Labs reviewed, hypokalemia noted, will replete. No leukocytosis. Creatinine elevated but at baseline for patient per record review, anemia also present but also at baseline per record review. D-dimer elevated, however D-dimer has been more elevated in the past with negative CT chest, given presence of significant right-sided pleural effusion this is very likely the etiology of her shortness of breath. CT chest not indicated at this time. Will continue to monitor. Surgery contacted for thoracentesis. Dr. Buchanan at bedside to perform thoracentesis. After thoracentesis performed, blood pressure reading of systolic 50, however patient had strong radial pulse and no change in clinical status. Subsequent blood pressure systolic 87. Paracentesis also performed by Dr. Buchanan. Dr. Buchanan recommends outpatient follow-up, no further intervention at this time. I discussed patient with Dr. Ramirez of palliative care given recurrent need for thoracentesis and paracentesis, Dr. Ramirez can see patient as an outpatient 08/05 at 8:15 AM. Patient states that she does not want to take potassium. After discussion about her hypokalemia and importance of medication, patient agrees to take 20 mEq. Repeat chest x-ray shows no pneumothorax. Blood pressure 100 systolic. Patient reports she feels much better, no further shortness of breath, feels at baseline. Patient requesting discharge. Lengthy discussion with Patient regarding return to emergency department precautions, home care, and importance of outpatient follow-up. Pt verbalizes understanding of the plan and is amenable. Patient discharged to home with clear plan for outpatient follow-up. All questions were answered. Disposition decision was made weighing the risks and benefits of hospitalization versus outpatient treatment, the risk for further decompensation, and the patient's wishes. After discharge, right-sided infiltrate noted on follow-up chest x-ray. Patient with no symptoms of clinical pneumonia, however plan to treat with outpatient antibiotics. I called the patient at home and discussed this finding with her. Patient reports that she is feeling very well after having procedures. She denies any current symptoms. 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 All questions answered. I reiterated return to emergency department precautions, home care, and importance of outpatient follow-up. Patient verbalized understanding and was amenable. Doxycycline called into pharmacy. Medical Records Medical records reviewed: Yes I reviewed the patient's medical records. Imaging Data Radiologic Study: Attestation: I personally reviewed and interpreted this imaging study as follows: Radiologist's impression: EXAM: XR PORTABLE CHEST AP CLINICAL HISTORY: post thoracentesis TECHNIQUE: 2D digital imaging was performed. COMPARISON: CR XR PORTABLE CHEST AP POST LINE from 07/23/2020 FINDINGS: MEDIASTINUM: Normal. HEART: Normal. PULMONARY VASCULATURE: Normal. LUNGS: There is an infiltrate in the right lung base. The left lung is clear. PLEURAL SPACE: The patient is status post thoracentesis. There is a small residual right pleural effusion present. No pneumothorax. BONE:Within normal limits for the patient's age. Thoracolumbar scoliosis. OTHER FINDINGS:Normal. IMPRESSION: Status post right thoracentesis with a small residual right pleural effusion. No pneumothorax. Right basilar infiltrate. EXAM: XR CHEST 2V PA LATERAL CLINICAL HISTORY: SOB TECHNIQUE: 2D digital imaging was performed. COMPARISON: CR XR CHEST 2V PA LATERAL from 07/20/2020 FINDINGS: MEDIASTINUM: Normal. HEART: Normal. PULMONARY VASCULATURE: Normal. LUNGS: Clear. PLEURAL SPACE: There is a large right pleural effusion occupying 2/3 of the right hemithorax. No pneumothorax. BONE:Within normal limits for the patient's age. There is an S-type thoracolumbar scoliosis. OTHER FINDINGS:Normal. IMPRESSION: Large right pleural effusion. Lab Data Lab results reviewed: Yes I reviewed the patient's lab results. Labs: Laboratory Tests Range/Units 08/03/20 08/03/20 08/03/20 11:14 11:41 11:41 WBC (4.4-10.8) 10^3/uL 5.37 RBC (3.93-5.22) 10^6/uL 3.23 L Hgb (11.2-15.7) g/dL 10.5 L Hct (36.0-46.0) % 32.0 L MCV (80-95) fL 99.1 H MCH (27.0-33.0) pg 32.5 MCHC (32.0-36.0) % 32.8 RDW (11.7-14.6) % 15.6 H Plt Count (130-400) 10^3/uL 126 L MPV (8.0-11.0) fL 9.8 Immature Gran % 0.4 Neutrophils % 48.5 Lymphocytes % 32.8 Monocytes % 13.0 Eosinophils % 3.4 Basophils % 1.9 Nucleated RBC % % 0 Absolute Neutrophils (1.2-6.7) 10^3/uL 2.61 Absolute Lymphocytes (1.2-3.4) 10^3/uL 1.76 Absolute Monocytes (0.1-0.8) 10^3/uL 0.70 Absolute Eosinophils (0.0-0.7) 10^3/uL 0.18 Absolute Basophils (0.0-0.2) 10^3/uL 0.10 PT (9.3-11.0) sec 14.9 H INR (0.9-1.1) 1.5 H D-Dimer (<500) ng/mlFEU Sodium (136-145) mmol/L 138 Potassium (3.5-5.1) mmol/L 3.2 L Chloride (98-107) mmol/L 106 Carbon Dioxide (21.0-32.0) mmol/L 24.5 Anion Gap (3-11) mmol/L 7.5 BUN (7-18) mg/dL 25 H Creatinine (0.55-1.02) mg/dL 1.75 H Estimated GFR/1.73 m2 (mL/min/1.73m2) 30.40 Glucose (74-106) mg/dL 81 Calcium (8.5-10.1) mg/dL 8.2 L Total Bilirubin (0.2-1.0) mg/dL 3.2 H AST (15-37) U/L 35 ALT (14-59) U/L 25 Alkaline Phosphatase (46-116) U/L 183 H Troponin I (<0.06) ng/mL < 0.05 Total Protein (6.4-8.2) g/dL 6.4 Albumin (3.4-5.0) g/dL 2.7 L Range/Units 08/03/20 11:41 WBC (4.4-10.8) 10^3/uL RBC (3.93-5.22) 10^6/uL Hgb (11.2-15.7) g/dL Hct (36.0-46.0) % MCV (80-95) fL MCH (27.0-33.0) pg MCHC (32.0-36.0) % RDW (11.7-14.6) % Plt Count (130-400) 10^3/uL MPV (8.0-11.0) fL Immature Gran % Neutrophils % Lymphocytes % Monocytes % Eosinophils % Basophils % Nucleated RBC % % Absolute Neutrophils (1.2-6.7) 10^3/uL Absolute Lymphocytes (1.2-3.4) 10^3/uL Absolute Monocytes (0.1-0.8) 10^3/uL Absolute Eosinophils (0.0-0.7) 10^3/uL Absolute Basophils (0.0-0.2) 10^3/uL PT (9.3-11.0) sec INR (0.9-1.1) D-Dimer (<500) ng/mlFEU 2469 H Sodium (136-145) mmol/L Potassium (3.5-5.1) mmol/L Chloride (98-107) mmol/L Carbon Dioxide (21.0-32.0) mmol/L Anion Gap (3-11) mmol/L BUN (7-18) mg/dL Creatinine (0.55-1.02) mg/dL Estimated GFR/1.73 m2 (mL/min/1.73m2) Glucose (74-106) mg/dL Calcium (8.5-10.1) mg/dL Total Bilirubin (0.2-1.0) mg/dL AST (15-37) U/L ALT (14-59) U/L Alkaline Phosphatase (46-116) U/L Troponin I (<0.06) ng/mL Total Protein (6.4-8.2) g/dL Albumin (3.4-5.0) g/dL ECG Data Attestation: I personally reviewed and interpreted this ECG (s) as follows: Interpretation: EKG shows A. fib at 74 with occasional PVC, normal axis, low voltage present on prior 07/03, nonspecific ST abnormalities, no STEMI, nondiagnostic EKG HPI General Mode of arrival: ambulatory. Date/Time Provider Initiated Documentation: 08/03/20 10:58. Limitations to Documentation: no limitations. Information obtained by: patient, RN notes reviewed and old records reviewed. HPI Narrative: Erin De Leon is a 55-year-old woman with a history of advanced liver cirrhosis with ascites, CHF, chronic pleural effusion, A. fib, chronic kidney disease presenting to the emergency department with shortness of breath. Patient reports that she has need for recurrent drainage of fluid from her lungs and her abdomen. Patient reports that she had fluid drained approximately 2 weeks ago from both lungs and abdomen. Patient reports that she saw surgery last week, who stated that she did not need to have fluid drawn at that time and she should wait another 1 to 2 weeks. Patient reports that over the weekend she noticed increasing shortness of breath consistent with her usual symptoms when she needs to have lung/abdomen drained. Patient reports that she has some abdominal tightness that she attributes to distention of her abdomen and needing fluid drained, states that she does not have any abdominal pain. She denies any other pain. She denies fevers, cough, vomiting, numbness, weakness, rash. Patient states that all symptoms are typical of needing fluid drained. Patient states that she called day surgery to have procedures done, and they could not accommodate her in the schedule, and sent her to the emergency department. Patient states that she has been eating and drinking as usual and going about all of her daily activities as usual. She reports that she feels otherwise well and in her usual state of health. Related Data Home Medications Medication Instructions Recorded Confirmed Xifaxan 550 mg PO BID 04/18/20 08/18/20 furosemide 80 mg PO BID 04/18/20 08/18/20 lactulose 20 g PO QID 04/18/20 08/18/20 nitroglycerin 0.4 mg SUBLINGUAL Q5M PRN 04/18/20 08/18/20 spironolactone 50 mg PO DAILY 04/18/20 08/18/20 metoprolol succinate 100 mg PO HS 06/15/20 08/18/20 sofosbuvir 400 mg-velpatasvir 100 1 tab PO DAILY 06/29/20 08/18/20 mg tablet potassium chloride 10 mEq 10 meq PO DAILY 07/16/20 08/18/20 capsule,extended release Allergies Allergy/AdvReac Type Severity Reaction Status Date / Time amphetamine aspartate Allergy Severe Facial Unverified 08/18/20 10:51 [From Adderall] Swelling, Blisters, Tongue Swelling, Rash, amphetamine sulfate Allergy Severe Facial Unverified 08/18/20 10:51 [From Adderall] Swelling, Blisters, Tongue Swelling, Rash, dextroamphetamine saccharate Allergy Severe Facial Unverified 08/18/20 10:51 [From Adderall] Swelling, Blisters, Tongue Swelling, Rash, dextroamphetamine sulfate Allergy Severe Facial Unverified 08/18/20 10:51 [From Adderall] Swelling, Blisters, Tongue Swelling, Rash, Penicillins Allergy Intermediate Hives, Unverified 08/18/20 10:51 Rash, Tongue Swelling codeine AdvReac Mild Constipatio Unverified 08/18/20 10:51 n General Stated Complaint: Abd Prob JOE: 3 Review of Systems Narrative: Constitutional: denies fevers Eyes: denies eye pain ENT: denies ear pain, dental pain, sore throat Cardiovascular: denies chest pain, edema Respiratory: denies cough, reports shortness of breath GI: denies abdominal pain, vomiting, diarrhea : denies flank pain MSK: denies back pain, neck pain, arthralgias, myalgias Skin: denies rash Neuro: denies headaches, numbness, weakness PFSH Medical History Advanced hepatic cirrhosis Hep C & ETOH Anxiety Atrial fibrillation with controlled ventricular rate Attention deficit hyperactivity disorder, combined type Cholestasis of Chronic hepatitis C Cirrhosis of liver with ascites CKD (chronic kidney disease) stage 4, GFR 15-29 ml/min COVID-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 History of abdominal paracentesis Irritable colon Nephrotic syndrome Pleural effusion associated with hepatic disorder Renal failure syndrome Surgical History section x2 History of thoracentesis (~08/03/20) Hx of tubal ligation S/P abdominal paracentesis (~08/03/20) Family History Mother Hypertensive disorder, systemic arterial Father Hypertensive disorder, systemic arterial Social History Smoking/Tobacco Use Status: Former Tobacco Use Quit Date: 09/18/18 Smoking risk assessment performed?: Yes Alcohol Intake: former Drug use: Never Substance use type: does not use Do you feel safe at home: Yes Do you feel safe in your relationship?: Yes 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 Narrative Exam Narrative: Constitutional: well and [id number], pleasant, conversing normally HENT: head atraumatic/normocephalic/normal inspection, mucous membranes moist Eyes: conjunctiva normal, sclera normal, pupils 3mm b/l Neck: no stridor, normal ROM, trachea midline Chest: normal inspection Resp: normal work of breathing, decreased lung sounds on the right Cardio: normal rate, normal rhythm, no murmur appreciated GI: abdomen soft, non-tender, mild to moderate distention Back: normal inspection, no rash Skin: warm, dry, normal color, no rash Neuro: alert, not altered, grossly non-focal, normal tone, normal gait Ext: moving all extremities equally Psych: normal mood, normal affect, normal behavior Course Vital Signs Vital signs: Vital Signs Temperature 37.0 C 08/03/20 11:02 Pulse 87 08/03/20 11:02 Blood Pressure 117/45 L 08/03/20 11:02 Pulse Oximetry 98 08/03/20 11:02 Temperature 37.0 C 08/03/20 11:02 Temperature Source Temporal Artery Scan 08/03/20 11:02 Pulse 87 08/03/20 11:02 Respiratory Effort Non-Labored 08/03/20 11:05 Blood Pressure 117/45 L 08/03/20 11:02 Blood Pressure Position Sitting 08/03/20 11:02 Pulse Oximetry 98 08/03/20 11:02 Oxygen Delivery Method Room Air 08/03/20 11:02 Oxygen Flow Rate 0 08/03/20 11:02 Pain Level 7 08/03/20 11:02
[2020-08-03 11:48] LABS: Abs Immature Grans 0.02 10^3/uL (0.0-0.06); Absolute Eosinophil Count 0.18 10^3/uL (0.0-0.7); Absolute Lymphocyte Count 1.76 10^3/uL (1.2-3.4); Absolute Neutrophil Count 2.61 10^3/uL (1.2-6.7); Basophils % 1.9; Eosinophils % 3.4; HGB 10.5 g/dL (11.2-15.7); Immature Grans % 0.4; Lymphocytes % 32.8; MCH 32.5 pg (27.0-33.0); MCHC 32.8 % (32.0-36.0); MCV 99.1 fL (80-95); MPV 9.8 fL (8.0-11.0); Neutrophils % 48.5; Nucleated RBC 0 %; Platelet Count 126 10^3/uL (130-400); RBC 3.23 10^6/uL (3.93-5.22); RDW 15.6 % (11.7-14.6); RDW-SD 56.5 fL; WBC 5.37 10^3/uL (4.4-10.8)
[2020-08-03 12:05] LABS: ALT 25 U/L (14-59); AST 35 U/L (15-37); Albumin 2.7 g/dL (3.4-5.0); Alkaline Phosphatase 183 U/L (46-116); Anion Gap 7.5 mmol/L (3-11); BUN 25 mg/dL (7-18); Bilirubin, Total 3.2 mg/dL (0.2-1.0); CO2 24.5 mmol/L (21.0-32.0); CREATININE 1.75 mg/dL (0.55-1.02); Calcium 8.2 mg/dL (8.5-10.1); Chloride 106 mmol/L (98-107); Glucose 81 mg/dL (74-106); Potassium 3.2 mmol/L (3.5-5.1); Sodium 138 mmol/L (136-145); Total Protein 6.4 g/dL (6.4-8.2)
[2020-08-03 12:08] LABS: Troponin I < 0.05 ng/mL (<0.06)
[2020-08-03 12:24] LABS: INR 1.5 (0.9-1.1); Prothrombin Time 14.9 sec (9.3-11.0)
--- NOTE | 2020-08-03 12:45 | NUR.NOTE ---
Nursing Note:Dr. Wade at bedside consent [id number] for Thoracentesis and Paracentesis
--- NOTE | 2020-08-03 12:46 | NUR.NOTE ---
Nursing Note: Patient refusing K+ at this time. States she took 60 meq at home this AM. Dr. Leiva aware. Patient will consider taking it.
[2020-08-03 12:58] LABS: D-Dimer 2469 ng/mlFEU (<500)
[2020-08-03] MEDS: ALBUMIN HUMAN 25 GM/100 ML BTL IV (13:38)
[2020-08-03] MEDS: Potassium Chloride 20 MEQ TABCR 40 MEQ PO (13:42)
--- NOTE | 2020-08-03 13:45 | DI.RAD_ITS ---
EXAM: XR PORTABLE CHEST AP CLINICAL HISTORY: post thoracentesis TECHNIQUE: 2D digital imaging was performed. COMPARISON: CR XR PORTABLE CHEST AP POST LINE from 07/23/2020 FINDINGS: MEDIASTINUM: Normal. HEART: Normal. PULMONARY VASCULATURE: Normal. LUNGS: There is an infiltrate in the right lung base. The left lung is clear. PLEURAL SPACE: The patient is status post thoracentesis. There is a small residual right pleural eff usion present. No pneumothorax. BONE:Within normal limits for the patient's age. Thoracolumbar scoliosis. OTHER FINDINGS:Normal. IMPRESSION: Status post right thoracentesis with a small residual right pleural effusion. No pneumothorax. Right basilar infiltrate. DATA REPOSITORY: RADIATION DOSE DELIVERED:
--- NOTE | 2020-08-03 14:30 | W.SURGCON ---
Date of service: 08/03/20 Time of Service: 14:30 Assessment and Plan Assessment and plan (1) Pleural effusion: Status: Acute Assessment and plan: 55 year old with a history of cardiomyopathy, Kidney disease and cirrhosis who came to the ER today due to increasing Sob and inability to eat due to the pressure from the ascitic fluid. Last time she had a Paracentesis and a thoracentesis was 07/23/2020 Risks, benefits and complications were reviewed with the patient. Complications include but are not limited to bleeding, infection, injry to bowel, pneumothorax, hypotension, MO (2) Cirrhosis of liver with ascites: Status: Acute Qualifiers: Hepatic cirrhosis type: unspecified hepatic cirrhosis Qualified Code(s): K74.60 - Unspecified cirrhosis of liver; R18.8 - Other ascites (3) Cardiomyopathy: Status: Active (4) Atrial fibrillation with controlled ventricular rate: Status: Acute (5) CKD (chronic kidney disease) stage 4, GFR 15-29 ml/min: Status: Acute History of Present Illness History of Present Illness Chief Complaint: pleural effusion and ascitis Narrative: Erin De Leon is a 55-year-old woman with a history of advanced liver cirrhosis with ascites, CHF, chronic pleural effusion, A. fib, chronic kidney disease presenting to the emergency department with shortness of breath. Patient reports that she has need for recurrent drainage of fluid from her lungs and her abdomen. Patient reports that she had fluid drained approximately 2 weeks ago from both lungs and abdomen. Patient reports that she saw surgery last week, she stated that she did not need to have fluid drawn at that time and she should wait another 1 to 2 weeks. Patient reports that over the weekend she noticed increasing shortness of breath consistent with her usual symptoms when she needs to have lung/abdomen drained. Patient reports that she has some abdominal discomfort that she attributes to distention of her abdomen and needing fluid drained. She denies any other pain. She denies fevers, cough, vomiting, numbness, weakness, rash. Patient states that all symptoms are typical of needing fluid drained. CXR showed a large pleural effusion on the right side I was asked to see patient for a thoracenthesis and paracenthesis Consults Consult date: 08/03/20 Requesting physician: Sabrina Leiva Review of Systems Constitutional Constitutional: Denies fever(s), Denies headache(s), Reports poor appetite and Denies weight loss Eyes Eyes: Denies change in vision ENT Ears, Nose, Mouth, and Throat: Denies change in voice, Denies dysphagia, Denies headache(s) and Denies hoarseness Cardiovascular Cardiovascular: Denies chest pain, Denies chest pain at rest, Reports irregular heart rhythm, Denies palpitations and Reports dyspnea Respiratory Respiratory: Denies cough and Reports dyspnea Gastrointestinal Gastrointestinal: Reports as per HPI, Denies dysphagia, Denies dyspepsia and Denies heartburn Genitourinary Genitourinary: Denies hematuria Neurologic Neurologic: Denies headache(s) Endocrine Endocrine: Denies palpitations PFS Medical History (Updated 08/03/20 @ 14:56 by Stacy Buchanan MD) Advanced hepatic cirrhosis Hep C & ETOH Anxiety Atrial fibrillation with controlled ventricular rate Attention deficit hyperactivity disorder, combined type Cholestasis of Chronic hepatitis C Cirrhosis of liver with ascites CKD (chronic kidney disease) stage 4, GFR 15-29 ml/min COVID-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 History of abdominal paracentesis Irritable colon Nephrotic syndrome Pleural effusion associated with hepatic disorder Renal failure syndrome Surgical History (Updated 08/03/20 @ 14:51 by Stacy Buchanan MD) section x2 History of thoracentesis (~08/03/20) Hx of tubal ligation S/P abdominal paracentesis (~08/03/20) Family History Mother Hypertensive disorder, systemic arterial Father Hypertensive disorder, systemic arterial Social History Smoking/Tobacco Use Status: Former Tobacco Use Quit Date: 09/18/18 Smoking risk assessment performed?: Yes Alcohol Intake: former Drug use: Never Substance use type: does not use Do you feel safe at home: Yes Do you feel safe in your relationship?: Yes 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 Const General: cooperative, comfortable, no acute distress and ill appearing Orientation: alert and oriented x3 HENMT Head: normocephalic and atraumatic Resp Effort & Inspection: normal respiratory effort Auscultation: diminished lung sounds (right lower and mid) Cardio Rate: tachycardic Rhythm: abnormal rhythm Heart Sounds: no murmurs GI Inspection: normal to inspection Palpation: soft, nontender and ascites Results Last Vital Signs Temp 98.6 F 08/03/20 11:02 Pulse 75 08/03/20 14:01 Resp 15 08/03/20 14:10 BP 97/71 L 08/03/20 14:01 Pulse Ox 96 08/03/20 14:10 Labs Result diagrams: 08/03/20 11:41 08/03/20 11:41 Labs: Laboratory Results - last 24 hr 08/03/20 08/03/20 08/03/20 11:14 11:41 11:41 WBC 5.37 RBC 3.23 L Hgb 10.5 L Hct 32.0 L MCV 99.1 H MCH 32.5 MCHC 32.8 RDW 15.6 H Plt Count 126 L MPV 9.8 Immature Gran % 0.4 Neutrophils % 48.5 Lymphocytes % 32.8 Monocytes % 13.0 Eosinophils % 3.4 Basophils % 1.9 Nucleated RBC % 0 Absolute Neutrophils 2.61 Absolute Lymphocytes 1.76 Absolute Monocytes 0.70 Absolute Eosinophils 0.18 Absolute Basophils 0.10 PT 14.9 H INR 1.5 H D-Dimer Sodium 138 Potassium 3.2 L Chloride 106 Carbon Dioxide 24.5 Anion Gap 7.5 BUN 25 H Creatinine 1.75 H Estimated GFR/1.73 m2 30.40 Glucose 81 Calcium 8.2 L Total Bilirubin 3.2 H AST 35 ALT 25 Alkaline Phosphatase 183 H Troponin I < 0.05 Total Protein 6.4 Albumin 2.7 L 08/03/20 11:41 WBC RBC Hgb Hct MCV MCH MCHC RDW Plt Count MPV Immature Gran % Neutrophils % Lymphocytes % Monocytes % Eosinophils % Basophils % Nucleated RBC % Absolute Neutrophils Absolute Lymphocytes Absolute Monocytes Absolute Eosinophils Absolute Basophils PT INR D-Dimer 2469 H Sodium Potassium Chloride Carbon Dioxide Anion Gap BUN Creatinine Estimated GFR/1.73 m2 Glucose Calcium Total Bilirubin AST ALT Alkaline Phosphatase Troponin I Total Protein Albumin Procedures Paracentesis Time out performed: Yes Indication: Ascites Procedure: therapeutic paracentesis Location: RLQ Local anesthetic used: lidocaine 1% Amount of anesthesia used (ml): 10 Preparation: sterile prep and drape Amount of fluid obtained (ml): 4,300 Fluid: clear Post procedure exam: awake, alert Patient tolerated procedure: well Complications: none Additional comments: Pre-op Dx: Ascitis and right sided pleural effusion Post-op Dx: same Procedure: 1. Right sided thoracentesis 2. Paracentesis under US guidence Surgeon: Bong Buchanan MD Anesthesia: 1% Lidocaine Blood loss: 2 cc Specimen: none Complications: no immediate complications Procedure: After informed consent was obtained the patient was asked to sit at the edge of the bed with her feet on a step stool. The patient was given a table with a pillow to lean against. The back was exposed. The old scars were identified at the 5th intercostal space. A time out was done. The patients name, , procedure to be done and side, allergies and antibiotic given were reviewed. Fire risk was assessed. Next the back was prepped and draped in a standard fashion with chlorhexidine. The thoracenthesis kit was opened in a sterile fashion. 1% Lidocaine was injected into the dermis, subcutaneous tissue and down between the ribs. A small incision was then made with an 11 blade. The needle and sheath were then slowly introduced until I was able to suction some fluid. At this point the sheath was advanced and the needle was pulled back. The needle was then attached to tubing and to a suction bottle. 2500 cc of light yellow fluid was removed. The sheath was removed and a band aid was applied. The patient was placed back on the [facility]. The right lower quadrant was US and a pocket of fluid was identified in the RLQ. The area was marked and prepped and draped in a sterile surgical fashion. 1% lidocaine was injected into the dermis and down to the fascia. A small incision was made with an 11 blade. Under US guidence the needle and sheath that came in the kit was slowly advanced through the subcutaneous tissue and the peritoneum into the abdomen. As soon as serous fluid was suctioned the sheath was advanced over the needle into the abdomen and the needle was removed. The sheath was then attached to suction canisters and a total of 4300 mL of serous fluid was removed without complication. The patient's blood pressure was checked throughout the procedure and continued to stay stable in the 90s to low 100s. MAPs were in the mid 50's to mid 60's. Once the procedure was done the sheath was removed and a ileostomy bag was applied over the incision. The patient was slowly placed into a sitting position. Patient did not develop any dizziness. One bottle of albumin was given while she was having the paracentesis done. Patient did well and there were no immediate complications. Portable CXR was ordered and was pending at the time of this dictation.
--- NOTE | 2020-08-03 14:38 | NUR.NOTE ---
Nursing Note: Dr. Wade took 3,000 ml from chest with Thoracentesis and 4,300 ml from abdomen with Paracentesis.
== END 2020-08-03 14:59 | disposition home or self-care (01) ==
PROVIDERS: Emergency Provider Student in an Organized Health Care Education/Training Program; PCP Nurse Practitioner Family
DX: J90 Pleural effusion, not elsewhere classified (principal); E87.6 Hypokalemia; K70.31 Alcoholic cirrhosis of liver with ascites; R91.8 Other nonspecific abnormal finding of lung field; B18.2 Chronic viral hepatitis C; R79.1 Abnormal coagulation profile; I42.9 Cardiomyopathy, unspecified; K74.60 Unspecified cirrhosis of liver; R18.8 Other ascites; I48.91 Unspecified atrial fibrillation
CPT/HCPCS: 32554; 36415; 49082; 80053; 93005; 96365; 99252; 99285; 71045; 71046; 84484; 85025; 85379; 85610; 93010

== ENCOUNTER 2020-08-10 11:20 | Day surgery (SDC) | payer MEDICARE, MEDICAID, SELFPAY ==
--- NOTE | 2020-08-10 | DI.RAD_ITS ---
EXAM: XR PORTABLE CHEST AP CLINICAL HISTORY: s/p thorocentisis TECHNIQUE: 2D digital imaging was performed. COMPARISON: CR XR CHEST 2V PA LATERAL from 08/10/2020 FINDINGS: The patient is status post right thoracentesis. There has been significant interval decrease in size of the previously noted right pleural effusion, now tiny. No pneumothorax is seen. There is no sig nificant re-expansion edema. The left lung remains clear. The heart size is normal. Scoliosis is a gain noted. IMPRESSION: No pneumothorax status post Thoracentesis. Significant decrease in size right pneumothorax. DATA REPOSITORY: RADIATION DOSE DELIVERED:
--- NOTE | 2020-08-10 11:52 | DI.RAD_ITS ---
EXAM: XR CHEST 2V PA LATERAL CLINICAL HISTORY: Paracentesis TECHNIQUE: 2D digital imaging was performed. COMPARISON: CR XR PORTABLE CHEST AP from 08/03/2020 CR XR CHEST 2V PA LATERAL from 08/03/2020 FINDINGS: There has been interval reaccumulation of the right pleural effusion, occupying 2/3 of the chest, sim ilar to the pre thoracentesis film. The left lung appears clear. Heart size is normal. Scoliosis i s again demonstrated. There is no pneumothorax. IMPRESSION: Reaccumulation of the right pleural effusion. DATA REPOSITORY: RADIATION DOSE DELIVERED:
[2020-08-10 11:59] VITALS: BP 108/67; PULSE 94; RESP 22; TEMP 36.5; O2SAT 100
--- NOTE | 2020-08-10 13:31 | W.PM.DSUDISC ---
Discharge Plan Disposition Patient Disposition: HOME Condition: Fair Discharge Details Attending Provider: Hazel Lindsey Primary Care Provider: Ling Pepe Home Meds and New Rx's Prescriptions: No Action potassium chloride 10 mEq capsule, extended release 10 meq PO DAILY RF: 0 sofosbuvir-velpatasvir [Epclusa] 400-100 mg tablet 1 tab PO DAILY RF: 0 spironolactone 100 mg tablet 50 mg PO DAILY RF: 0 furosemide 80 mg tablet 80 mg PO BID RF: 0 nitroglycerin 0.4 mg Tablet, Sublingual 0.4 mg SUBLINGUAL Q5M PRNRF: 0 Xifaxan 550 mg tablet 550 mg PO BID RF: 0 lactulose 20 gram/30 mL Solution 20 g PO QID RF: 0 metoprolol succinate 100 mg tablet extended release 24 hr 100 mg PO HS RF: 0 Discharge Instructions Additional Instructions: -No lifting over 20 pounds or strenuous activity x24 hours. - shower in 24 hours -Ice as needed for pain EKG normal -Stop taking doxycycline -Follow- up 08/24 repeat paracentesis and thoracentesis. Same Day Surgery surgery will call you the day before surgery to let you to let time you need to come to the hospital. Come to same-day surgery. - follow-up on 09/07 weeks for repeat paracentesis and thoracentesis. Same Day Surgery surgery will call you the day before surgery to let you to let time you need to come to the hospital. Come to same-day surgery. - Stand Alone Forms: Alireza Diego (HUMAIRAU) Activity:: see above Diet:: low sodium diet DS: Diagnosis Discharge Diagnosis (1) Pleural effusion: Status: Acute (2) Ascites: Status: Acute (3) Cirrhosis of liver with ascites: Status: Acute (4) Hepatic encephalopathy: Status: Acute (5) Cardiomyopathy: Status: Active (6) Congestive heart failure: Status: Active (7) Pleural effusion: Status: Active (8) Viral hepatitis C: Status: Active (9) Pleural effusion associated with hepatic disorder: Status: Acute (10) Nephrotic syndrome: Status: Acute (11) Advanced hepatic cirrhosis: Status: Chronic (12) Atrial fibrillation with controlled ventricular rate: Status: Acute
--- NOTE | 2020-08-10 14:18 | ROE_ITS ---
Date of service: 08/10/20 Time of Service: 14:19 Operative Note Operative Note DATE OF PROCEDURE: 08/10/20 PRE-OP DIAGNOSIS: hep C/liver failure/heart failure/nephrotic syndrome POST-OP DIAGNOSIS: same PROCEDURE: paracentisis SURGEON: Hazel Lindsey ANESTHESIA: local ESTIMATED BLOOD LOSS: 0 Patient was transported to: same day Procedure Description: The patient is brought to the procedure room and placed in the supine position. Placement chosen on top in the right upper quadrant. A time-out is done. Ultrasound is used to localize the pocket. The area is prepped and draped in the usual sterile fashion using a ChloraPrep scrub solut ion. 20 cc's of 1% Lidocaine with epinephrine is used for local anesthetization. The abdomen is punctured R- lateral to umbilicus, and the catheter is inserted. 2.1 liters of light yellow fluid is evacuated today. The catheter is removed. Pressure dressing is applied. The patient tolerated the procedure well without complication.
--- NOTE | 2020-08-10 14:24 | ROE_ITS ---
Date of service: 08/19/20 Time of Service: 14:25 Operative Note Operative Note DATE OF PROCEDURE: 08/10/20 PRE-OP DIAGNOSIS: pleural eff POST-OP DIAGNOSIS: same PROCEDURE: thorocentisis ANESTHESIA: local ESTIMATED BLOOD LOSS: 0 Patient was transported to: same day Implants: paracentisis Procedure Description: Pt is here today for thoracentesis for symptoms of shortness of breath. Chest x-ray was reviewed prior to beginning the procedure- right sided. Informed consent was obtained explaining risks and benefits of the procedure, including but not limited to bleeding, infection, pneumothorax, recurrence, complications of anesthesia, and other unforetold complications. PROCEDURE: The patient is brought to the procedure room and placed in the seated position. Ultrasound is used to localize the pocket on the left chest. The area is marked and then prepped and draped in the usual sterile fashion using a ChloraPrep scrub solution. 10 cc's of 1% Lidocaine is used to anesthetize the T10 interspace. The small chai is made with a #11 blade. The needle and catheter is then inserted over the top of the rib, aspirating as it is inserted. The needle is then removed. The catheter is then hooked up to the Vacutainer system and 3600 cc's of straw-colored fluid is evacuated. The catheter is removed; pressure is held. Sterile compression dressing is applied. Portable chest x-ray shows no pneumothorax. Pt is given instructions in wound care, activity, medications, and warning signs: SOB, increasing in pain, chest pain, redness or temperature- if these occur, come to ED. Patient is notoriously unreliable and noncompliant. She is pretty much having to have a paracentesis every 10 to 14 days on the right side. I I will try to reach out to her cardiology team to make sure they are aware.
[2020-08-10 15:01] LABS: C Diff PCR Negative (Negative)
== END 2020-08-10 14:26 | disposition home or self-care (01) ==
PROVIDERS: PCP Nurse Practitioner Family; Visit Provider Surgery
PROC: 0W9G3ZZ Drainage of Peritoneal Cavity, Percutaneous Approach (ICD-10-PCS; CPT 49082; principal; 2020-08-10 11:00)
PROC: (CPT 32554; 2020-08-10 11:00)
DX: J90 Pleural effusion, not elsewhere classified (principal); R18.8 Other ascites; K72.90 Hepatic failure, unspecified without coma; B19.20 Unspecified viral hepatitis C without hepatic coma; I50.9 Heart failure, unspecified; N04.9 Nephrotic syndrome with unspecified morphologic changes
CPT/HCPCS: 49083; 32555; 87493; 71045; 71046

== ENCOUNTER → 2020-08-18 10:49 | Outpatient (BNVA) | payer MEDICARE, MEDICAID, SELFPAY | PROVIDERS: PCP Nurse Practitioner Family; Referring Provider Nurse Practitioner Family; Visit Provider Surgery | DX: R18.8 Other ascites (principal); K74.60 Unspecified cirrhosis of liver; I42.9 Cardiomyopathy, unspecified; N18.4 Chronic kidney disease, stage 4 (severe); I50.9 Heart failure, unspecified | CPT/HCPCS: 99214 ==

== ENCOUNTER 2020-08-21 09:48 | Day surgery (SDC) | payer MEDICARE, MEDICAID, SELFPAY ==
[2020-08-21] VITALS (31 sets, daily range): BP systolic 98–128; BP diastolic 57–88; PULSE 60–84; RESP 14–27; TEMP 36–36.6; O2SAT 91–100
--- NOTE | 2020-08-21 | DI.RAD_ITS ---
EXAM: XR PORTABLE CHEST AP CLINICAL HISTORY: s/p thorocentisis TECHNIQUE: COMPARISON: CR XR PORTABLE CHEST AP from 08/21/2020 FINDINGS: Portable AP chest at 1635 hours, post thoracentesis. Previously described large right pleural effusi on is no longer visible on this frontal film. Minimal atelectasis noted in the right lower lung fiel d. Otherwise lungs are clear and well expanded. Cardiac size within normal limits. No evidence of pneumothorax. IMPRESSION: RADIATION DOSE DELIVERED: Total DLP Total DLP
--- NOTE | 2020-08-21 10:08 | NUR.NOTE ---
Nursing Note: ECG held per provider until after examination.
--- NOTE | 2020-08-21 10:12 | ED.GENADUL_ITS ---
Discharge Plan Disposition Condition: Good Discharge Details Chief Complaint: Chest Pain Attending Provider: Hazel Lindsey Primary Care Provider: Unknown,Unknown ED Provider: Mauricio Leiva Discharge Instructions Activity:: no lifting over 20#'s or strenuous activity x 24 hrs Remove Dressings/Wound Care:: 24 hours Shower/Bathe:: 24 hours Diet:: Low Sodium Discharge Data Discharge Date/Time-TO BE ENTERED AT DEPARTURE: 08/21/20 15:00 Medical Decision Making 1045 --55-year-old female with multiple medical problems including history of hepatitis C, hepatic encephalopathy, cirrhosis of the liver, chronic kidney disease, recent prior paracentesis and thoracentesis, here with increased ascites and concern for pleural effusion, shortness of breath or dyspnea on exertion and chest discomfort. Patient does have chest heaviness which I suspect is secondary to volume overload. Consider ACS. Screening ECG was reviewed and interpreted by me: Sari byrd, 71 bpm, low voltage, nonspecific T wave flattening. Plan to check troponin. --I called and spoke with Dr. Lindsey who will evaluate the patient. She notes will likely need to perform paracentesis and thoracentesis in operating room. --Initial labs reviewed: Chronic kidney disease noted, BNP elevated at 2300. Initial troponin negative. 1452--Delta troponin negative. Patient to go to surgery with Dr. Lindsey. Care transition to Dr. Lindsey. HPI General Mode of arrival: ambulatory . Date/Time Provider Initiated Documentation: 08/21/20 09:57 . Limitations to Documentation: no limitations . Information obtained by: patient . HPI Narrative: 65-year-old female with multiple medical problems including prior history of hepatitis C, advanced h epatic cirrhosis, history of ascites requiring recent paracentesis, hepatic encephalopathy, prior cardiomyopathy, chronic kidney disease, AJanis fib, presents with chief complaint of need for paracentesis. Patient notes she had paracentesis performed 08/10 and was due for repeat on 08/24. Patient notes she has been accumulating abdominal fluid and feels as though paracentesis needs to be done sooner than scheduled. She notes that as result of this she feels some shortness of breath worse with exertion. She also notes for about 1/2-hour she has had some chest discomfort described as heaviness in her epigastrium. No associated calf pain or swelling. Symptoms are moderate to severe with no modifiers as noted. Related Data Home Medications Medication Instructions Recorded Confirmed Xifaxan 550 mg PO BID 04/18/20 09/07/20 furosemide 80 mg PO BID 04/18/20 09/07/20 lactulose 20 g PO QID 04/18/20 09/07/20 nitroglycerin 0.4 mg SUBLINGUAL Q5M PRN 04/18/20 09/07/20 spironolactone 50 mg PO DAILY 04/18/20 09/07/20 metoprolol succinate 100 mg PO HS 06/15/20 09/07/20 sofosbuvir 400 mg-velpatasvir 100 1 tab PO DAILY 06/29/20 09/07/20 mg tablet potassium chloride 10 mEq 10 meq PO DAILY 07/16/20 09/07/20 capsule,extended release losartan 25 mg PO DAILY 08/31/20 09/07/20 Allergies Allergy/AdvReac Type Severity Reaction Status Date / Time amphetamine aspartate Allergy Severe Facial Unverified 09/07/20 08:02 [From Adderall] Swelling, Blisters, Tongue Swelling, Rash, amphetamine sulfate Allergy Severe Facial Unverified 09/07/20 08:02 [From Adderall] Swelling, Blisters, Tongue Swelling, Rash, dextroamphetamine saccharate Allergy Severe Facial Unverified 09/07/20 08:02 [From Adderall] Swelling, Blisters, Tongue Swelling, Rash, dextroamphetamine sulfate Allergy Severe Facial Unverified 09/07/20 08:02 [From Adderall] Swelling, Blisters, Tongue Swelling, Rash, Penicillins Allergy Intermediate Hives, Unverified 09/07/20 08:02 Rash, Tongue Swelling codeine AdvReac Mild Constipatio Unverified 09/07/20 08:02 n General Stated Complaint: Chest Pain JOE: 3 Review of Systems All systems reviewed & are unremarkable except as noted in HPI and below Constitutional Constitutional: Denies fever(s) Respiratory Respiratory: Reports as per HPI [facility] Medical History Advanced hepatic cirrhosis Hep C & ETOH Anxiety Atrial fibrillation with controlled ventricular rate Attention deficit hyperactivity disorder, combined type Cholestasis of Chronic hepatitis C Cirrhosis of liver with ascites CKD (chronic kidney disease) stage 4, GFR 15-29 ml/min COVID-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 History of abdominal paracentesis Irritable colon Nephrotic syndrome Pleural effusion associated with hepatic disorder Renal failure syndrome Surgical History section x2 History of thoracentesis (~08/03/20) 08/10/20 08/21/20 History of thoracentesis (~08/31/20) Hx of tubal ligation S/P abdominal paracentesis (~08/03/20) Family History Mother Hypertensive disorder, systemic arterial Father Hypertensive disorder, systemic arterial Social History Smoking/Tobacco Use Status: Former Tobacco Use Quit Date: 09/18/18 Smoking risk assessment performed?: Yes Alcohol Intake: former Drug use: Never Substance use type: does not use Do you feel safe at home: Yes Do you feel safe in your relationship?: Yes 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 Const General: cooperative and no acute distress HENMT Head: normocephalic Mouth: moist mucous membranes Eyes Conjunctivae: normal conjunctivae Sclera: scleral abnormality bilaterally other (Icterus) Neck Neck: trachea midline and supple Resp Auscultation: clear to auscultation bilaterally, no rales, no rhonchi and no wheezes Cardio Rate: regular rate and not tachycardic Rhythm: regular rhythm GI Inspection: distended Palpation: not firm, no guarding, no masses, not rigid, nontender and ascites Skin General skin exam: jaundice Other: Fine red rash on bilateral lower abdomen Neuro General: patient alert, patient awake, patient oriented x3 and tone normal Extrem General: no edema Psych Appearance: grossly normal Mental Status: mental status grossly normal Course Vital Signs Vital signs: Vital Signs Temperature 36 C L 08/21/20 09:53 Pulse 74 08/21/20 09:53 Respiratory Rate 18 08/21/20 09:53 Blood Pressure 98/75 L 08/21/20 09:53 Pulse Oximetry 98 08/21/20 09:53 Temperature 36 C L 08/21/20 09:53 Temperature Source Temporal Artery Scan 08/21/20 09:53 Pulse 74 08/21/20 09:53 Respiratory Rate 18 08/21/20 09:53 Respiratory Effort 08/21/20 10:05 Blood Pressure 98/75 L 08/21/20 09:53 Blood Pressure Position Sitting 08/21/20 09:53 Pulse Oximetry 98 08/21/20 09:53 Oxygen Delivery Method Room Air 08/21/20 09:53 Oxygen Flow Rate 0 08/21/20 09:53 Pain Level 8 08/21/20 09:53
--- NOTE | 2020-08-21 10:15 | RT.EKG_ITS ---
APPROVED REPORT Exam: Resting ECG Patient Location: E HR:71 bpm ECG Measurements Heart Rate 71 AXIS DC [id number] P [id number] QRSd 93 QRS 52 QT 417 T [id number] QTc 453 Conclusion Atrial fibrillation...V-rate 58- 83, irreg A-activity Low voltage, extremity leads...all extremity leads <0.5mV Nonspecific T abnormalities, lateral leads...T <-0.10mV, I aVL V5 V6
[2020-08-21 10:46] LABS: Abs Immature Grans 0.02 10^3/uL (0.0-0.06); Absolute Basophil Count 0.11 10^3/uL (0.0-0.2); Absolute Eosinophil Count 0.42 10^3/uL (0.0-0.7); Absolute Lymphocyte Count 1.59 10^3/uL (1.2-3.4); Absolute Monocyte Count 0.51 10^3/uL (0.1-0.8); Absolute Neutrophil Count 3.32 10^3/uL (1.2-6.7); Basophils % 1.8; HCT 33.1 % (36.0-46.0); HGB 11.2 g/dL (11.2-15.7); Immature Grans % 0.3; Lymphocytes % 26.6; MCH 32.9 pg (27.0-33.0); MCHC 33.8 % (32.0-36.0); MCV 97.4 fL (80-95); Monocytes % 8.5; Neutrophils % 55.8; Nucleated RBC 0 %; Platelet Count 113 10^3/uL (130-400); RDW 17.2 % (11.7-14.6); RDW-SD 61.4 fL; WBC 5.97 10^3/uL (4.4-10.8)
--- NOTE | 2020-08-21 10:59 | DI.RAD_ITS ---
EXAM: XR PORTABLE CHEST AP CLINICAL HISTORY: diminished rt lung sounds, ascites, chest pain,SOB TECHNIQUE: 2D digital imaging was performed. COMPARISON: CR XR CHEST 2V PA LATERAL from 08/10/2020 CR XR PORTABLE CHEST AP from 08/10/2020 FINDINGS: There has been reaccumulation of the right pleural effusion, not quite as large as the pre thoracente sis exam of 10 August 2020. No pneumothorax is seen. The left lung appears clear. Heart size is normal. Scoliosis is again noted. IMPRESSION: Reaccumulation of right pleural effusion, moderate to large in size. DATA REPOSITORY: RADIATION DOSE DELIVERED:
[2020-08-21 11:02] LABS: ALT 32 U/L (14-59); AST 48 U/L (15-37); Albumin 2.6 g/dL (3.4-5.0); Alkaline Phosphatase 202 U/L (46-116); Anion Gap 8.6 mmol/L (3-11); BUN 38 mg/dL (7-18); CO2 20.4 mmol/L (21.0-32.0); CREATININE 1.89 mg/dL (0.55-1.02); Calcium 7.9 mg/dL (8.5-10.1); Chloride 107 mmol/L (98-107); Estimated GFR 27.82 (mL/min/1.73m2); Glucose 103 mg/dL (74-106); Potassium 3.8 mmol/L (3.5-5.1); Sodium 136 mmol/L (136-145); Total Protein 6.6 g/dL (6.4-8.2); Troponin I < 0.05 ng/mL (<0.06)
[2020-08-21 11:08] LABS: NT-proBNP 2391 pg/mL (<300)
--- NOTE | 2020-08-21 11:30 | NUR.NOTE ---
Nursing Note: Attempted to have pt register with access- staff not available. Will try again.
[2020-08-21 14:06] LABS: Troponin I < 0.05 ng/mL (<0.06)
--- NOTE | 2020-08-21 16:27 | W.PM.OP ---
Date of service: 08/21/20 Time of Service: 16:27 Operative Note Operative Note DATE OF PROCEDURE: 08/21/20 PRE-OP DIAGNOSIS: pleural effusion SURGEON: Hazel Lindsey RECREATIONAL PROGRAMS DIRECTOR: Manuela Kessler ANESTHESIA: local ESTIMATED BLOOD LOSS: 0 Procedure Description: The patient is brought to the procedure room and placed in the supine position. Placement chosen on top in the LLQ. A time-out is done. Ultrasound is used to localize the pocket. The area is prepped and draped in the usual sterile fashion using a ChloraPrep scrub solution. 20 cc's of 1% Lidocaine with epinephrine is used for local anesthetization. The abdomen is punctured and the catheter is inserted. 3600 liters of light yellow fluid is evacuated today. The catheter is removed. Pressure dressing is applied. The patient tolerated the procedure well without complication.
--- NOTE | 2020-08-21 16:30 | W.PM.PROGNOT ---
Subjective Subjective Patient reports: no new complaints Objective Last Vital Signs Temp 36.2 C L 08/21/20 11:35 Pulse 70 08/21/20 13:16 Resp 20 08/21/20 13:16 BP 116/81 08/21/20 13:16 Pulse Ox 96 08/21/20 13:10 Laboratory Results - last 24 hr 08/21/20 08/21/20 08/21/20 10:35 10:35 10:35 WBC 5.97 RBC 3.40 L Hgb 11.2 Hct 33.1 L MCV 97.4 H MCH 32.9 MCHC 33.8 RDW 17.2 H Plt Count 113 L MPV 11.0 Immature Gran % 0.3 Neutrophils % 55.8 Lymphocytes % 26.6 Monocytes % 8.5 Eosinophils % 7.0 Basophils % 1.8 Nucleated RBC % 0 Absolute Neutrophils 3.32 Absolute Lymphocytes 1.59 Absolute Monocytes 0.51 Absolute Eosinophils 0.42 Absolute Basophils 0.11 Sodium 136 Potassium 3.8 Chloride 107 Carbon Dioxide 20.4 L Anion Gap 8.6 BUN 38 H Creatinine 1.89 H Estimated GFR/1.73 m2 27.82 Glucose 103 Calcium 7.9 L Total Bilirubin 3.0 H AST 48 H ALT 32 Alkaline Phosphatase 202 H Troponin I < 0.05 NT-Pro-B Natriuret Pep 2391 H Total Protein 6.6 Albumin 2.6 L 08/21/20 13:45 WBC RBC Hgb Hct MCV MCH MCHC RDW Plt Count MPV Immature Gran % Neutrophils % Lymphocytes % Monocytes % Eosinophils % Basophils % Nucleated RBC % Absolute Neutrophils Absolute Lymphocytes Absolute Monocytes Absolute Eosinophils Absolute Basophils Sodium Potassium Chloride Carbon Dioxide Anion Gap BUN Creatinine Estimated GFR/1.73 m2 Glucose Calcium Total Bilirubin AST ALT Alkaline Phosphatase Troponin I < 0.05 NT-Pro-B Natriuret Pep Total Protein Albumin
--- NOTE | 2020-08-21 16:32 | W.PM.OP ---
Date of service: 08/21/20 Time of Service: 16:32 Operative Note Operative Note DATE OF PROCEDURE: 08/21/20 PRE-OP DIAGNOSIS: cirrhosis POST-OP DIAGNOSIS: same PROCEDURE: thorocentisis SURGEON: Hazel Lindsey TRADE SHOW SPECIALIST: Manuela Kessler ANESTHESIA: local ESTIMATED BLOOD LOSS: 0 Patient was transported to: same day Procedure Description: Pt is here today for thoracentesis for symptoms of shortness of breath. Chest x-ray was reviewed prior to beginning the procedure. Informed consent was obtained explaining risks and benefits of the procedure, including but not limited to bleeding, infection, pneumothorax, recurrence, complications of anesthesia, and other unforetold complications. PROCEDURE: The patient is brought to the procedure room and placed in the seated position. Ultrasound is used to localize the pocket on the left chest. The area is marked and then prepped and draped in the usual sterile fashion using a ChloraPrep scrub solution. 10 cc's of 1% Lidocaine is used to anesthetize the T10 interspace. The small chai is made with a #11 blade. The needle and catheter is then inserted over the top of the rib, aspirating as it is inserted. The needle is then removed. The catheter is then hooked up to the Vacutainer system and 3200 cc's of straw-colored fluid is evacuated. The catheter is removed; pressure is held. Sterile compression dressing is applied. Portable chest x-ray shows no pneumothorax. Pt is given instructions in wound care, activity, medications, and warning signs: SOB, increasing in pain, chest pain, redness or temperature- if these occur, come to ED.
[2020-08-21] MEDS: Normal Saline Flush 10 ML SYR IVP (16:36)
[2020-08-21] MEDS: ALBUMIN HUMAN 25 GM/100 ML BTL IV ×2 (16:36→17:17)
--- NOTE | 2020-08-21 16:46 | PDOC.DSDIS_ITS ---
Discharge Plan Disposition Patient Disposition: HOME Condition: Good Discharge Details Reason For Visit: removal of fluid from chest and lung Attending Provider: Hazel Lindsey Primary Care Provider: Unknown,Unknown Home Meds and New Rx's Prescriptions: No Action potassium chloride 10 mEq capsule, extended release 10 meq PO DAILY RF: 0 sofosbuvir-velpatasvir [Epclusa] 400-100 mg tablet 1 tab PO DAILY RF: 0 spironolactone 100 mg tablet 50 mg PO DAILY RF: 0 furosemide 80 mg tablet 80 mg PO BID RF: 0 nitroglycerin 0.4 mg Tablet, Sublingual 0.4 mg SUBLINGUAL Q5M PRNRF: 0 Xifaxan 550 mg tablet 550 mg PO BID RF: 0 lactulose 20 gram/30 mL Solution 20 g PO QID RF: 0 metoprolol succinate 100 mg tablet extended release 24 hr 100 mg PO HS RF: 0 Discharge Instructions Additional Instructions: -ice for pain -you can take off the ostomy bag off, after no drainage for 24hrs. Follow up: repeat procedure is scheduled for Aug 31. We will call the Monday before to tell the arrival times. -D/w your cigarette making machine hopper feeder wether you should resume the spironolactone. The fluid is recurring rapidly. Please call if you develop: fevers >101.5 Nausea or Vomiting Abdominal pain that is not transient DAY SURGERY UNIT POST COLONOSCOPY INSTRUCTIONS 1. Because there will be medication in your system for the next 24 hours, you may feel a little sleepy. Your coordination will be affected. Therefore: a. Do not drive or operate dangerous equipment for 24 hours. b. Do not drink alcohol beverages for 24 hours (not even beer). c. Plan to go home and rest for the day. 2. Generally there are no restrictions on your activity after a day or so has gone by, but you may feel a bit fatigued for a few days. 3 After you arrive home you may have a light meal and return to a normal diet as you can tolerate it without feeling sick to your stomach. 4. After surgery, you may feel pain or discomfort. This should be only transient, but if it persists please contact your doctor. 5. If there are any questions regarding the findings of your procedure, please feel free to contact your doctor. 6. If you are unable to contact your doctor with a problem, contact the hospital at [phone]. 7. Continue all your regular medications unless directed otherwise. I understand the above instructions and have no questions. Signature of Patient or Responsible Adult Escort Date/Time Name of Responsible Adult Escort Signature of Nurse Date/Time Activity:: no lifting over 20#'s or strenuous activity x 24 hrs Remove Dressings/Wound Care:: 24 hours Shower/Bathe:: 24 hours Diet:: Low Sodium DS: Diagnosis Discharge Diagnosis (1) Pleural effusion: Status: Acute (2) Ascites: Status: Acute (3) Cirrhosis of liver with ascites: Status: Acute (4) Cardiomyopathy: Status: Active (5) Congestive heart failure: Status: Active (6) Pleural effusion: Status: Active
--- NOTE | 2020-08-21 16:54 | DI.VRAD_ITS ---
PROCEDURE INFORMATION: Exam: XR Chest, 1 View Exam date and time: 08/21/2020 4:36 PM Age: 55 years old Clinical indication: Screening exam; Other screening; Patient HX: S/P thorocentisis TECHNIQUE: Imaging protocol: XR of the chest Views: 1 view. COMPARISON: CR XR PORTABLE CHEST AP 08/21/2020 10:46 AM FINDINGS: Lungs: Residual right lower lobe atelectasis, status post resolved right pleural effusion after thoracocentesis. Pleural space: No pneumothorax. Heart/Mediastinum: Normal heart and cardiomediastinal silhouette. Vasculature: Normal pulmonary vessel caliber. Normal aorta. Bones/joints: The bones are intact. IMPRESSION: Residual right lower lobe atelectasis. No pneumothorax or other acute abnormality. Dictated and Authenticated by: Pierce Hernandez MD. Ordering:JEFFREY Oliva MD
== END 2020-08-21 18:07 | disposition home or self-care (01) ==
LOC: ER 12:00 → DSU 14:59
PROVIDERS: Emergency Provider Student in an Organized Health Care Education/Training Program; Visit Provider Surgery
PROC: 0W9G3ZZ Drainage of Peritoneal Cavity, Percutaneous Approach (ICD-10-PCS; CPT 49082; principal; 2020-08-21 12:45)
PROC: (CPT 32554; 2020-08-21 12:45)
DX: J90 Pleural effusion, not elsewhere classified (principal); R18.8 Other ascites; K72.90 Hepatic failure, unspecified without coma; K74.60 Unspecified cirrhosis of liver; I42.9 Cardiomyopathy, unspecified; I50.9 Heart failure, unspecified; B18.2 Chronic viral hepatitis C; N18.9 Chronic kidney disease, unspecified; E87.70 Fluid overload, unspecified
CPT/HCPCS: 49083; 32555; 80053; 93005; 71045; 83880; 84484; 85025; 93010

== ENCOUNTER → 2020-08-24 08:07 | Outpatient (BNVA) | payer MEDICARE, MEDICAID, SELFPAY | PROVIDERS: Referring Provider Nurse Practitioner Family; Visit Provider Surgery | DX: R69 Illness, unspecified (principal) ==

== ENCOUNTER 2020-08-31 09:50 | Day surgery (SDC) | payer MEDICARE, MEDICAID, SELFPAY ==
--- NOTE | 2020-08-31 | DI.RAD_ITS ---
EXAM: XR PORTABLE CHEST AP CLINICAL HISTORY: s/p thora TECHNIQUE: 2D digital imaging was performed. COMPARISON: CR XR CHEST 2V PA LATERAL from 08/31/2020 FINDINGS: MEDIASTINUM: Normal. HEART: Normal. PULMONARY VASCULATURE: Normal. LUNGS: Clear. PLEURAL SPACE: The patient is status post right thoracentesis. There is no pneumothorax. No right p leural effusion persists. There is no evidence of a left pleural effusion. BONE:Within normal limits for the patient's age. OTHER FINDINGS:Normal. IMPRESSION: Status post right thoracentesis without evidence of residual pleural effusion or pneumothorax. DATA REPOSITORY: RADIATION DOSE DELIVERED:
--- NOTE | 2020-08-31 10:00 | DI.RAD_ITS ---
EXAM: XR CHEST 2V PA LATERAL CLINICAL HISTORY: right pleural effusion. TECHNIQUE: 2D digital imaging was performed. COMPARISON: CR,XR XR PORTABLE CHEST AP from 08/21/2020 FINDINGS: Heart size is normal. The mediastinum is not widened. There is a new large right pleural effusion. No pleural effusion on the opposite-left side. The lef t lung is clear. Scoliosis convex right in the thoracic spine is again noted. IMPRESSION: Large right pleural effusion. DATA REPOSITORY: RADIATION DOSE DELIVERED:
[2020-08-31 10:11] VITALS: BP 112/75; PULSE 73; RESP 16; TEMP 35.9; O2SAT 100
--- NOTE | 2020-08-31 16:24 | ROE_ITS ---
Date of service: 08/31/20 Time of Service: 16:24 Operative Note Operative Note DATE OF PROCEDURE: 08/31/20 PRE-OP DIAGNOSIS: cirrhosis/heat failure POST-OP DIAGNOSIS: other PROCEDURE: Thora and Para SURGEON: Hazel Lindsey ESTATE ATTORNEY: Manuela Kessler ANESTHESIA: GETA ESTIMATED BLOOD LOSS: 1 PATHOLOGY: none sent COMPLICATIONS: None Patient was transported to: same day Procedure Description: Pt is here today for thoracentesis for symptoms of shortness of breath. Chest x-ray was reviewed prior to beginning the procedure. Informed consent was obtained explaining risks and benefits of the procedure, including but not limited to bleeding, infection, pneumothorax, recurrence, complications of anesthesia, and other unforetold complications. PROCEDURE: The patient is brought to the procedure room and placed in the seated position. Ultrasound is used to localize the pocket on the left chest. The area is marked and then prepped and draped in the usual sterile fashion using a ChloraPrep scrub solution. 10 cc's of 1% Lidocaine is used to anesthetize the T10 interspace. The small chai is made with a #11 blade. The needle and catheter is then inserted over the top of the rib, aspirating as it is inserted. The needle is then removed. The catheter is then hooked up to the Vacutainer system and 3700 cc's of straw-colored fluid is evacuated. The catheter is removed; pressure is held. Sterile compression dressing is applied. Portable chest x-ray shows no pneumothorax. The patient is brought to the procedure room and placed in the supine position. Placement chosen on top in the right upper quadrant. A time-out is done. Ultrasound is used to localize the pocket. The area is prepped and draped in the usual sterile fashion using a ChloraPrep scrub solution. 20 cc's of 1% Lidocaine with epinephrine is used for local anesthetization. The abdomen is punctured and the catheter is inserted. 4450 cc of light yellow fluid is evacuated today. The catheter is removed. Pressure dressing is applied. The patient tolerated the procedure well without complication Pt is given instructions in wound care, activity, medications, and warning sig ns: SOB, increasing in pain, chest pain, redness or temperature- if these occur, come to ED.
--- NOTE | 2020-08-31 16:31 | W.PM.DSUDISC ---
Discharge Plan Disposition Patient Disposition: HOME Condition: Good Discharge Details Reason For Visit: drainage fluid chest adn abdom Attending Provider: Hazel Lindsey Primary Care Provider: Unknown,Unknown Home Meds and New Rx's Prescriptions: No Action potassium chloride 10 mEq capsule, extended release 10 meq PO DAILY RF: 0 sofosbuvir-velpatasvir [Epclusa] 400-100 mg tablet 1 tab PO DAILY RF: 0 losartan 25 mg tablet 25 mg PO DAILY RF: 0 spironolactone 100 mg tablet 50 mg PO DAILY RF: 0 furosemide 80 mg tablet 80 mg PO BID RF: 0 nitroglycerin 0.4 mg Tablet, Sublingual 0.4 mg SUBLINGUAL Q5M PRNRF: 0 Xifaxan 550 mg tablet 550 mg PO BID RF: 0 lactulose 20 gram/30 mL Solution 20 g PO QID RF: 0 metoprolol succinate 100 mg tablet extended release 24 hr 100 mg PO HS RF: 0 Discharge Instructions Additional Instructions: Findings: 3700c from chest 4450 from abdom Follow up:09/07 for repeat Have blood drawn this week. Please call if you develop: fevers >101.5 Nausea or Vomiting Abdominal pain that is not transient DAY SURGERY UNIT POST COLONOSCOPY INSTRUCTIONS a. Do not drive or operate dangerous equipment for 24 hours. b. Do not drink alcohol beverages for 24 hours (not even beer). c. Plan to go home and rest for the day. 2. Generally there are no restrictions on your activity after a day or so has gone by, but you may feel a bit fatigued for a few days. 3 After you arrive home you may have a light meal and return to a normal diet as you can tolerate it without feeling sick to your stomach. 4. After surgery, you may feel pain or discomfort. This should be only transient, but if it persists please contact your doctor. 5. If there are any questions regarding the findings of your procedure, please feel free to contact your doctor. 6. If you are unable to contact your doctor with a problem, contact the hospital at [phone]. 7. Continue all your regular medications unless directed otherwise. I understand the above instructions and have no questions. Signature of Patient or Responsible Adult Escort Date/Time Name of Responsible Adult Escort Signature of Nurse Date/Time Activity:: no lifting over 5#'s or strenuous activity x 24 hrs Remove Dressings/Wound Care:: 24 hours Shower/Bathe:: 24 hours Discharge Orders Discharge Orders: Discharge Order (Routine); Ordered 08/31/20 Ordered By: Hazel Lindsey DS: Diagnosis Discharge Diagnosis (1) Pleural effusion: Status: Acute (2) Ascites: Status: Acute (3) Hepatic encephalopathy: Status: Acute (4) Cardiomyopathy: Status: Active (5) Congestive heart failure: Status: Active (6) Cirrhosis of liver with ascites: Status: Acute
--- NOTE | 2020-08-31 17:09 | DI.VRAD_ITS ---
PROCEDURE INFORMATION: Exam: XR Chest, 1 View Exam date and time: 08/31/2020 4:24 PM Age: 55 years old Clinical indication: Screening exam; Other screening; Patient HX: S/P thoracentesis TECHNIQUE: Imaging protocol: XR of the chest Views: 1 view. COMPARISON: CR XR CHEST 2V PA LATERAL 08/31/2020 9:40 AM FINDINGS: Lungs: The lungs are normally expanded and clear. Pleural space: Resolved right pleural effusion. No pneumothorax. Heart/Mediastinum: Normal heart and cardiomediastinal silhouette. Vasculature: Normal pulmonary vessel caliber. Normal aorta. Bones/joints: The bones are intact. IMPRESSION: No evident disease or complication following right thoracentesis. Dictated and Authenticated by: Pierce Hernandez MD. Ordering:JEFFREY Oliva MD
== END 2020-08-31 16:55 | disposition home or self-care (01) ==
PROVIDERS: Visit Provider Surgery
PROC: (CPT 32554; principal; 2020-08-31 13:15)
PROC: 0W9G3ZZ Drainage of Peritoneal Cavity, Percutaneous Approach (ICD-10-PCS; CPT 49082; 2020-08-31 13:15)
DX: J90 Pleural effusion, not elsewhere classified (principal); R18.8 Other ascites; K72.90 Hepatic failure, unspecified without coma; I42.9 Cardiomyopathy, unspecified
CPT/HCPCS: 49083; 32555; 71045; 71046

== ENCOUNTER 2020-09-07 00:42 | Day surgery (SDC) | payer MEDICARE, MEDICAID, SELFPAY ==
--- NOTE | 2020-09-07 07:17 | DI.RAD_ITS ---
EXAM: XR CHEST 2V PA LATERAL CLINICAL HISTORY: SOB,CHF,PLEURAL EFFUSION,PRE THORACENTESIS TECHNIQUE: 2D digital imaging was performed. COMPARISON: CR XR CHEST 2V PA LATERAL from 08/31/2020 CR,XR XR PORTABLE CHEST AP from 08/31/2020 FINDINGS: MEDIASTINUM: Normal. HEART: Normal. PULMONARY VASCULATURE: Normal. LUNGS: Atelectasis is seen in the right lobe anteriorly. PLEURAL SPACE: Since the prior examination there has developed a right pleural effusion occupying niko roximately 1/3 of the right hemithorax. No left pleural effusion or pneumothorax is identified. BONE:Within normal limits for the patient's age. OTHER FINDINGS:Normal. IMPRESSION: Interval development of a moderate-sized right pleural effusion. DATA REPOSITORY: RADIATION DOSE DELIVERED:
[2020-09-07 08:11] VITALS: BP 97/46; PULSE 69; RESP 20; TEMP 36.6; O2SAT 100
--- NOTE | 2020-09-07 10:07 | W.PM.DSUDISC ---
Discharge Plan Disposition Patient Disposition: HOME Condition: Stable Discharge Details Reason For Visit: pre procedure Attending Provider: Hazel Lindsey Primary Care Provider: Unknown,Unknown Home Meds and New Rx's Prescriptions: No Action potassium chloride 10 mEq capsule, extended release 10 meq PO DAILY RF: 0 sofosbuvir-velpatasvir [Epclusa] 400-100 mg tablet 1 tab PO DAILY RF: 0 losartan 25 mg tablet 25 mg PO DAILY RF: 0 spironolactone 100 mg tablet 50 mg PO DAILY RF: 0 furosemide 80 mg tablet 80 mg PO BID RF: 0 nitroglycerin 0.4 mg Tablet, Sublingual 0.4 mg SUBLINGUAL Q5M PRNRF: 0 Xifaxan 550 mg tablet 550 mg PO BID RF: 0 lactulose 20 gram/30 mL Solution 20 g PO QID RF: 0 metoprolol succinate 100 mg tablet extended release 24 hr 100 mg PO HS RF: 0 Discharge Instructions Additional Instructions: F/u w/ PCP as needed. Repeat taps nxt Monday Activity:: no lifting over 20#'s or strenuous acitivty a x 24 hrs Diet:: Low Sodium Discharge Orders Discharge Orders: Discharge Order (Routine); Ordered 09/07/20 Ordered By: Hazel Lindsey DS: Diagnosis Discharge Diagnosis (1) Cirrhosis of liver with ascites: Status: Acute (2) Hepatic encephalopathy: Status: Acute (3) Cardiomyopathy: Status: Active (4) Congestive heart failure: Status: Active (5) Pleural effusion: Status: Active (6) Viral hepatitis C: Status: Active
--- NOTE | 2020-09-07 11:02 | W.PM.OP ---
Date of service: 09/07/20 Time of Service: 11:02 Operative Note Operative Note DATE OF PROCEDURE: 09/07/20 PRE-OP DIAGNOSIS: cirrhosis Patient was transported to: same day Procedure Description: Pt is here today for thoracentesis for symptoms of shortness of breath. Chest x-ray was reviewed prior to beginning the procedure. Informed consent was obtained explaining risks and benefits of the procedure, including but not limited to bleeding, infection, pneumothorax, recurrence, complications of anesthesia, and other unforetold complications. PROCEDURE: The patient is brought to the procedure room and placed in the seated position. Ultrasound is used to localize the pocket on the left chest. The area is marked and then prepped and draped in the usual sterile fashion using a ChloraPrep scrub solution. 10 cc's of 1% Lidocaine is used to anesthetize the T10 interspace. The small chai is made with a #11 blade. The needle and catheter is then inserted over the top of the rib, aspirating as it is inserted. The needle is then removed. The catheter is then hooked up to the Vacutainer system and 2900cc's of straw-colored fluid is evacuated. The catheter is removed; pressure is held. Sterile compression dressing is applied. Portable chest x-ray shows no pneumothorax. Pt is given instructions in wound care, activity, medications, and warning signs: SOB, increasing in pain, chest pain, redness or temperature- if these occur, come to ED.
--- NOTE | 2020-09-07 11:06 | W.PM.OP ---
Date of service: 09/07/20 Time of Service: 11:06 Operative Note Operative Note DATE OF PROCEDURE: 09/07/20 PRE-OP DIAGNOSIS: cirrhosisi POST-OP DIAGNOSIS: same SURGEON: Hazel Lindsey Patient was transported to: same day Procedure Description: The patient is brought to the procedure room and placed in the supine position. Placement chosen on top in the right upper quadrant. A time-out is done. Ultrasound is used to localize the pocket. The area is prepped and draped in the usual sterile fashion using a ChloraPrep scrub solution. 20 cc's of 1% Lidocaine with epinephrine is used for local anesthetization. The abdomen is punctured and the catheter is inserted. 3 liters of light yellow fluid is evacuated today. The catheter is removed. Pressure dressing is applied. The patient tolerated the procedure well without complication. She will receive postOp albumin plan for repeat next monday
--- NOTE | 2020-09-07 11:26 | DI.RAD_ITS ---
EXAM: XR PORTABLE CHEST AP CLINICAL HISTORY: s/p thoro TECHNIQUE: 2D digital imaging was performed. COMPARISON: CR,XR XR PORTABLE CHEST AP from 08/31/2020 CR XR CHEST 2V PA LATERAL from 09/07/2020 FINDINGS: MEDIASTINUM: Normal. HEART: Normal. PULMONARY VASCULATURE: Normal. LUNGS: Plate atelectasis is seen in the right mid lung. PLEURAL SPACE: No pleural effusion persists. The patient is status post right thoracentesis. There does appear to be a tiny persistent right pneumothorax. This was present on the examination from [place] in the day. BONE:Stable right convex scoliosis of the thoracic spine. OTHER FINDINGS:Normal. IMPRESSION: 1. Status post right thoracentesis without residual pleural effusion. 2. Plate atelectasis in the right mid lung. 3. Findings suggestive of a tiny right apical pneumothorax. There was a tiny pneumothorax present on the examination from earlier in the day. DATA REPOSITORY: RADIATION DOSE DELIVERED:
[2020-09-07] MEDS: ALBUMIN HUMAN 25 GM/100 ML BTL IV ×2 (11:46→12:24)
[2020-09-07] MEDS: Normal Saline Flush 10 ML SYR IVP (11:50)
[2020-09-07 11:51] VITALS: BP 90/58; PULSE 60; RESP 20; TEMP 35.8; O2SAT 100
== END 2020-09-07 13:40 | disposition home or self-care (01) ==
PROVIDERS: Visit Provider Surgery
PROC: (CPT 32554; principal; 2020-09-07 10:30)
PROC: 0W9G3ZZ Drainage of Peritoneal Cavity, Percutaneous Approach (ICD-10-PCS; CPT 49082; 2020-09-07 10:30)
DX: K74.60 Unspecified cirrhosis of liver (principal); R18.8 Other ascites; R06.02 Shortness of breath
CPT/HCPCS: 49083; 32555; 71045; 71046

== ENCOUNTER 2020-09-14 07:31 | Day surgery (SDC) | payer MEDICARE, MEDICAID, SELFPAY ==
--- NOTE | 2020-09-14 07:30 | DI.RAD_ITS ---
EXAM: XR CHEST 2V PA LATERAL CLINICAL HISTORY: Pre-op thoracentesis. TECHNIQUE: 2D digital imaging was performed. COMPARISON: Prior chest x-ray 09/07/2020 FINDINGS: Heart size is unchanged and the mediastinum is not widened. However, there has been significant deterioration. There is now a large right pleural effusion which was not evident on the previous study. No pleural effusion on the opposite-left side. Thoracic scoliosis convex right is again noted. IMPRESSION: Compared to 09/07/2020 there is now a large unilateral right-sided pleural effusion. DATA REPOSITORY: RADIATION DOSE DELIVERED:
[2020-09-14 08:27] VITALS: BP 117/72; PULSE 80; RESP 16; TEMP 36.4; O2SAT 100
--- NOTE | 2020-09-14 09:53 | W.PM.OP ---
Date of service: 09/14/20 Time of Service: 09:54 Operative Note Operative Note DATE OF PROCEDURE: 09/14/20 PRE-OP DIAGNOSIS: cirrhosis POST-OP DIAGNOSIS: same PROCEDURE: paracentisis/thorocentisis SURGEON: Hazel Lindsey ANESTHESIA: local ESTIMATED BLOOD LOSS: 0 Procedure Description: Pt is here today for thoracentesis for symptoms of shortness of breath. Chest x-ray was reviewed prior to beginning the procedure. Informed consent was obtained explaining risks and benefits of the procedure, including but not limited to bleeding, infection, pneumothorax, recurrence, complications of anesthesia, and other unforetold complications. PROCEDURE: The patient is brought to the procedure room and placed in the seated position. Ultrasound is used to localize the pocket on the left chest. The area is marked and then prepped and draped in the usual sterile fashion using a ChloraPrep scrub solution. 10 cc's of 1% Lidocaine is used to anesthetize the T10 interspace. The small chai is made with a #11 blade. The needle and catheter is then inserted over the top of the rib, aspirating as it is inserted. The needle is then removed. The catheter is then hooked up to the Vacutainer system and 3500cc's of straw-colored fluid is evacuated. The catheter is removed; pressure is held. Sterile compression dressing is applied. Suture was placed b/c she leaks continuously postOP. Portable chest x-ray shows no pneumothorax. The patient is brought to the procedure room and placed in the supine position. Placement chosen on top in the right upper quadrant. A time-out is done. Ultrasound is used to localize the pocket. The area is prepped and draped in the usual sterile fashion using a ChloraPrep scrub solution. 20 cc's of 1% Lidocaine with epinephrine is used for local anesthetization. The abdomen is punctured and the catheter is inserted. 2.9 liters of light yellow fluid is evacuated today. The catheter is removed. Pressure dressing is applied. The patient tolerated the procedure well without complication. Pt is given instructions in wound care, activity, medications, and warning signs: SOB, increasing in pain, chest pain, redness or temperature- if these occur, come to ED.
[2020-09-14] MEDS: ALBUMIN HUMAN 25 GM/100 ML BTL IV ×2 (10:49→11:43)
[2020-09-14] MEDS: Normal Saline Flush 10 ML SYR (10:49)
--- NOTE | 2020-09-14 10:50 | DI.RAD_ITS ---
EXAM: XR PORTABLE CHEST AP CLINICAL HISTORY: s/p thorocentisis. TECHNIQUE: 2D digital imaging was performed. COMPARISON: CR XR CHEST 2V PA LATERAL from 09/14/2020 FINDINGS: There is been interval right thoracentesis with significant improvement an almost complete absence of any pleural fluid on the right side at this time. There is no pneumothorax. No obvious mass eviden t in the lung [place]. Heart size unchanged. No mediastinal shift. Thoracic scoliosis again noted. IMPRESSION: Large right pleural effusion is no longer seen and there is no pneumothorax. DATA REPOSITORY: RADIATION DOSE DELIVERED:
[2020-09-14 11:15] VITALS: BP 97/60; PULSE 84; RESP 18; TEMP 36.1; O2SAT 100
--- NOTE | 2020-09-14 12:38 | W.PM.DSUDISC ---
Discharge Plan Disposition Patient Disposition: HOME Condition: Stable Discharge Details Reason For Visit: drainage of fluid from lung and abdomen Attending Provider: Hazel Lindsey Primary Care Provider: Marti Jeffers Home Meds and New Rx's Prescriptions: No Action potassium chloride 10 mEq capsule, extended release 10 meq PO DAILY RF: 0 sofosbuvir-velpatasvir [Epclusa] 400-100 mg tablet 1 tab PO DAILY RF: 0 losartan 25 mg tablet 25 mg PO DAILY RF: 0 spironolactone 100 mg tablet 50 mg PO DAILY RF: 0 furosemide 80 mg tablet 80 mg PO BID RF: 0 nitroglycerin 0.4 mg Tablet, Sublingual 0.4 mg SUBLINGUAL Q5M PRNRF: 0 Xifaxan 550 mg tablet 550 mg PO BID RF: 0 lactulose 20 gram/30 mL Solution 20 g PO DAILY RF: 0 metoprolol succinate 100 mg tablet extended release 24 hr 100 mg PO HS RF: 0 Discharge Instructions Additional Instructions: -no lifting over 5#'s for 24hrs -ice for pain -shower in 24 hrs -low salt diet -repeat procedure on September 22. -no changes in medications Discharge Orders Discharge Orders: Discharge Order (Routine); Ordered 09/14/20 Ordered By: Hazel Lindsey DS: Diagnosis Discharge Diagnosis (1) Cirrhosis of liver with ascites: Status: Acute (2) Cardiomyopathy: Status: Active (3) Congestive heart failure: Status: Active (4) Pleural effusion: Status: Active
== END 2020-09-14 12:50 | disposition home or self-care (01) ==
PROVIDERS: PCP Family Medicine; Visit Provider Surgery
PROC: (CPT 32554; principal; 2020-09-14 08:30)
PROC: 0W9G3ZZ Drainage of Peritoneal Cavity, Percutaneous Approach (ICD-10-PCS; CPT 49082; 2020-09-14 08:30)
DX: K74.60 Unspecified cirrhosis of liver (principal); R18.8 Other ascites; R06.02 Shortness of breath
CPT/HCPCS: 49083; 32555; 71045; 71046

== ENCOUNTER 2020-09-22 07:27 | Day surgery (SDC) | payer MEDICARE, MEDICAID, SELFPAY ==
--- NOTE | 2020-09-22 | DI.RAD_ITS ---
EXAM: XR PORTABLE CHEST AP CLINICAL HISTORY: s/p thoro TECHNIQUE: 2D digital imaging was performed. COMPARISON: CR XR PORTABLE CHEST AP from 09/14/2020 CR XR CHEST 2V PA LATERAL from 09/22/2020 FINDINGS: MEDIASTINUM: Normal. HEART: Normal. PULMONARY VASCULATURE: Normal. LUNGS: Clear. PLEURAL SPACE: There is no right pleural effusion in this patient following thoracentesis. No pneumo thorax. BONE:Stable thoracic scoliosis. OTHER FINDINGS:Normal. IMPRESSION: 1. The right pleural effusion is no longer present following thoracentesis. 2. No pneumothorax. DATA REPOSITORY: RADIATION DOSE DELIVERED:
--- NOTE | 2020-09-22 06:30 | DI.RAD_ITS ---
EXAM: XR CHEST 2V PA LATERAL CLINICAL HISTORY: preop for paracentesis, pleural effusion,j90 TECHNIQUE: 2D digital imaging was performed. COMPARISON: CR XR PORTABLE CHEST AP from 09/14/2020 CR XR CHEST 2V PA LATERAL from 09/14/2020 FINDINGS: MEDIASTINUM: Normal. HEART: Normal. PULMONARY VASCULATURE: Normal. LUNGS: Atelectasis in the right lung. PLEURAL SPACE: Since the prior examination there has developed a large right pleural effusion occupyi ng half of the right hemithorax. No pneumothorax or left pleural effusion. BONE:Stable thoracic scoliosis. OTHER FINDINGS:Normal. IMPRESSION: Interval development of a large right pleural effusion. DATA REPOSITORY: RADIATION DOSE DELIVERED:
[2020-09-22 07:35] VITALS: BP 110/75; PULSE 72; RESP 20; TEMP 36.3; O2SAT 72
[2020-09-22] MEDS: Sodium Bicarbonate 50 MEQ/50 ML VIAL (08:58)
--- NOTE | 2020-09-22 09:00 | RT.EKG_ITS ---
APPROVED REPORT Exam: Resting ECG Patient Location: O HR:64 bpm ECG Measurements Heart Rate 64 AXIS FL [id number] P [id number] QRSd 115 QRS 61 QT 461 T 226 QTc 475 Conclusion Atrial fibrillation...V-rate 50- 55, irreg A-activity Nonspecific intraventricular conduction delay. Consider anteroseptal infarct...Q >30mS, dimin R, V1-V2
[2020-09-22 09:37] LABS: Abs Immature Grans 0.03 10^3/uL (0.0-0.06); Absolute Basophil Count 0.08 10^3/uL (0.0-0.2); Absolute Lymphocyte Count 1.56 10^3/uL (1.2-3.4); Absolute Monocyte Count 0.67 10^3/uL (0.1-0.8); Absolute Neutrophil Count 3.61 10^3/uL (1.2-6.7); Basophils % 1.2; Eosinophils % 9.2; HCT 28.7 % (36.0-46.0); Immature Grans % 0.5; Lymphocytes % 23.8; MCH 32.6 pg (27.0-33.0); MCHC 34.8 % (32.0-36.0); MCV 93.5 fL (80-95); MPV 11.2 fL (8.0-11.0); Monocytes % 10.2; Neutrophils % 55.1; Nucleated RBC 0 %; Platelet Count 108 10^3/uL (130-400); RBC 3.07 10^6/uL (3.93-5.22); RDW 17.4 % (11.7-14.6); WBC 6.55 10^3/uL (4.4-10.8)
[2020-09-22] MEDS: ALBUMIN HUMAN 25 GM/100 ML BTL IV ×2 (09:45→10:55)
[2020-09-22 09:47] LABS: INR 1.4 (0.9-1.1); Prothrombin Time 14.3 sec (9.3-11.0)
[2020-09-22 09:52] LABS: ALT 28 U/L (14-59); AST 30 U/L (15-37); Albumin 2.9 g/dL (3.4-5.0); Alkaline Phosphatase 197 U/L (46-116); Anion Gap 8.8 mmol/L (3-11); BUN 66 mg/dL (7-18); Bilirubin, Total 1.9 mg/dL (0.2-1.0); CO2 22.2 mmol/L (21.0-32.0); CREATININE 2.31 mg/dL (0.55-1.02); Calcium 8.3 mg/dL (8.5-10.1); Chloride 103 mmol/L (98-107); Estimated GFR 22.07 (mL/min/1.73m2); Glucose 97 mg/dL (74-106); Magnesium 1.9 mg/dL (1.8-2.4); Sodium 134 mmol/L (136-145)
[2020-09-22 09:58] LABS: NT-proBNP 3865 pg/mL (<300)
[2020-09-22 10:00] VITALS: BP 106/72; PULSE 64; RESP 18; TEMP 36; O2SAT 100
[2020-09-22 10:04] LABS: Potassium 2.2 mmol/L (3.5-5.1)
[2020-09-22 10:06] LABS: Iron 142 ug/dL (50-170); Total Iron Binding Capacity 133 ug/dL (250-450); Transferrin Sat 107 % (15-50)
[2020-09-22 10:10] LABS: GGT 38 U/L (5-55)
[2020-09-22] MEDS: Potassium Chloride 20 MEQ TABCR PO (10:29)
[2020-09-22 10:30] VITALS: BP 104/70; PULSE 67; RESP 18; TEMP 36.1; O2SAT 97
--- NOTE | 2020-09-22 11:20 | PDOC.DSDIS_ITS ---
Discharge Plan Disposition Patient Disposition: HOME Condition: Stable Discharge Details Reason For Visit: paracentisis/thorocentis /low K Attending Provider: Hazel Lindsey Primary Care Provider: Marti Jeffers Home Meds and New Rx's Prescriptions: Discontinued spironolactone 100 mg tablet 50 mg PO DAILY RF: 0 No Action potassium chloride 10 mEq capsule, extended release 10 meq PO DAILY RF: 0 sofosbuvir-velpatasvir [Epclusa] 400-100 mg tablet 1 tab PO DAILY RF: 0 losartan 25 mg tablet 25 mg PO DAILY RF: 0 furosemide 80 mg tablet 80 mg PO BID RF: 0 nitroglycerin 0.4 mg Tablet, Sublingual 0.4 mg SUBLINGUAL Q5M PRNRF: 0 Xifaxan 550 mg tablet 550 mg PO BID RF: 0 lactulose 20 gram/30 mL Solution 20 g PO DAILY RF: 0 metoprolol succinate 100 mg tablet extended release 24 hr 100 mg PO DAILY RF: 0 Discharge Instructions Additional Instructions: -resume taking potassium -repeat procedure next monday -F/u w/ heart doctor and [place] [facility] [place] -trying to set you up w/ a internal medicine Dr at [facility] for overall health care and monitoring your potassium and kidney function. -consider PICC line for next week. -Your potassium was 2.2 today -you are in A fib today Activity:: No lifting over 20 pounds or strenuous activity x24 hours. Diet:: Low Sodium Discharge Orders Discharge Orders: Discharge Order (Routine); Ordered 09/22/20 Ordered By: Hazel Lindsey DS: Diagnosis Discharge Diagnosis (1) Cirrhosis of liver with ascites: Status: Acute (2) Hepatic encephalopathy: Status: Acute (3) Cardiomyopathy: Status: Active (4) Congestive heart failure: Status: Active (5) Pleural effusion: Status: Active (6) Viral hepatitis C: Status: Active (7) History of gallstones: Status: Active (8) Smoking history: Status: Active (9) Hypokalemia due to excessive renal loss of potassium: Status: Acute (10) Atrial fibrillation with controlled ventricular rate: Status: Acute
--- NOTE | 2020-09-22 16:17 | ROE_ITS ---
Date of service: 09/22/20 Time of Service: 08:00 Operative Note Operative Note PRE-OP DIAGNOSIS: cirrhosis POST-OP DIAGNOSIS: same PROCEDURE: thorocentisis & paracentisis SURGEON: Hazel Lindsey CLEANER AND PRESSER: Manuela Kessler ANESTHESIA: local ESTIMATED BLOOD LOSS: 1 PATHOLOGY: none sent Patient was transported to: same day Procedure Description: Pt is here today for thoracentesis for symptoms of shortness of breath. Chest x-ray was reviewed prior to beginning the procedure. Informed consent was obtained explaining risks and benefits of the procedure, including but not limited to bleeding, infection, pneumothorax, recurrence, complications of anesthesia, and other unforetold complications. PROCEDURE: The patient is brought to the procedure room and placed in the seated position. Ultrasound is used to localize the pocket on the left chest. The area is marked and then prepped and draped in the usual sterile fashion using a ChloraPrep scrub solution. 10 cc's of 1% Lidocaine is used to anesthetize the T10 interspace. The small chai is made with a #11 blade. The needle and catheter is then inserted over the top of the rib, aspirating as it is inserted. The needle is then removed. The catheter is then hooked up to the Vacutainer system and 2900 cc's of straw-colored fluid is evacuated. The catheter is removed; pressure is held. Sterile compression dressing is applied. Portable chest x-ray shows no pneumothorax. The patient is brought to the procedure room and placed in the supine position. Placement chosen on top in the right upper quadrant. A time-out is done. Ultrasound is used to localize the pocket. The area is prepped and draped in the usual sterile fashion using a ChloraPrep scrub solution. 20 cc's of 1% Lidocaine with epinephrine is used for local anesthetization. The abdomen is punctured and the catheter is inserted. 2950 liters of light yellow fluid is evacuated today. The catheter is removed. Pressure dressing is applied. The patient tolerated the procedure well without complication. Pt is given instructions in wound care, activity, medications, and warning signs: SOB, increasing in pain, chest pain, redness or temperature- if these occur, come to ED. -Patient has very difficult IV access. It appears that she is going to need to have paracentesis and thoracentesis done every 7 to 10 days with IV albumin infusion. It was routine lab draws. I did talk to Leyda Bolanos about placing a PICC. Neck scheduled Date is October 02 and we will plan on placing a concrement PICC line. Can try to get her set up with one of my senior solutions consultant at [facility] internal so that they can manage her's potassium and diuretic therapy, as patient does not feel this is being done well by [facility] [place]. And she needs a local physician that can monitor and coordinate her care.
== END 2020-09-22 12:10 | disposition home or self-care (01) ==
LOC: SUR 07:32 → DSU 07:33 → SUR 07:54
PROVIDERS: PCP Family Medicine; Visit Provider Surgery
PROC: (CPT 32554; principal; 2020-09-22 07:30)
PROC: 0W9G3ZZ Drainage of Peritoneal Cavity, Percutaneous Approach (ICD-10-PCS; CPT 49082; 2020-09-22 07:30)
DX: J90 Pleural effusion, not elsewhere classified (principal); K74.60 Unspecified cirrhosis of liver; R18.8 Other ascites
CPT/HCPCS: 32555; 49083; 32556; 36415; 80053; 96365; 96366; 71045; 71046; 82977; 83540; 83550; 83735; 83880; 85025; 85610; 93005; 93010

== ENCOUNTER 2020-10-02 08:42 | Day surgery (SDC) | payer MEDICARE, MEDICAID, SELFPAY ==
--- NOTE | 2020-10-02 | DI.RAD_ITS ---
EXAM: XR PORTABLE CHEST AP CLINICAL HISTORY: psot- proceudre. TECHNIQUE: 2D digital imaging was performed. COMPARISON: CR XR CHEST 2V PA LATERAL from 10/02/2020 FINDINGS: Heart size is normal. The mediastinum is not widened. There has been almost complete elimination of the right pleural effusion described on the film earlie r today. There is most probably been interval thoracentesis. There is no pneumothorax. There is mi ld platelike atelectasis in the right lung base. Opposite-left lung remains clear. Heart size uncha nged. IMPRESSION: No pneumothorax on this post thoracentesis image. Right pleural effusion has significantly decreased in size. DATA REPOSITORY: RADIATION DOSE DELIVERED:
--- NOTE | 2020-10-02 08:42 | DI.RAD_ITS ---
EXAM: XR CHEST 2V PA LATERAL CLINICAL HISTORY: pre-op, pleural effusion,PRE THORACENTESIS,J90. TECHNIQUE: 2D digital imaging was performed. COMPARISON: CR XR PORTABLE CHEST AP from 09/22/2020 FINDINGS: Heart size is normal. The mediastinum is not widened. Left lung is clear but there is now a moderate-large right pleural effusion noted, not evident 10 day s ago. Thoracic scoliosis convex right is again noted IMPRESSION: There is a new prominent right pleural effusion now evident. DATA REPOSITORY: RADIATION DOSE DELIVERED:
[2020-10-02 09:01] VITALS: BP 103/67; PULSE 100; RESP 20; TEMP 36.6; O2SAT 100
[2020-10-02 09:48] LABS: HCT 28.9 % (36.0-46.0); HGB 9.6 g/dL (11.2-15.7); MCH 32.2 pg (27.0-33.0); MCHC 33.2 % (32.0-36.0); MPV 10.9 fL (8.0-11.0); Platelet Count 107 10^3/uL (130-400); RBC 2.98 10^6/uL (3.93-5.22); RDW 18.1 % (11.7-14.6); RDW-SD 64.5 fL; WBC 5.45 10^3/uL (4.4-10.8)
[2020-10-02 10:03] LABS: ALT 27 U/L (14-59); AST 24 U/L (15-37); Albumin 2.9 g/dL (3.4-5.0); Alkaline Phosphatase 166 U/L (46-116); Anion Gap 9.5 mmol/L (3-11); BUN 57 mg/dL (7-18); Bilirubin, Total 2.1 mg/dL (0.2-1.0); CO2 22.5 mmol/L (21.0-32.0); CREATININE 2.59 mg/dL (0.55-1.02); Calcium 8.3 mg/dL (8.5-10.1); Chloride 106 mmol/L (98-107); Estimated GFR 19.34 (mL/min/1.73m2); Glucose 123 mg/dL (74-106); Magnesium 1.9 mg/dL (1.8-2.4); Potassium 3.3 mmol/L (3.5-5.1); Prothrombin Time 14.4 sec (9.3-11.0); Sodium 138 mmol/L (136-145)
[2020-10-02 10:04] LABS: INR 1.4 (0.9-1.1)
[2020-10-02 10:33] LABS: GGT 38 U/L (5-55)
[2020-10-02 10:37] LABS: Iron 145 ug/dL (50-170); Total Iron Binding Capacity 150 ug/dL (250-450); Transferrin Sat 97 % (15-50)
--- NOTE | 2020-10-02 10:52 | ROE_ITS ---
Date of service: 10/02/20 Time of Service: 10:52 Operative Note Operative Note DATE OF PROCEDURE: 10/02/20 PRE-OP DIAGNOSIS: cirrhosis POST-OP DIAGNOSIS: same PROCEDURE: paracentisis/thorocentisis SURGEON: Hazel Lindsey ANESTHESIA: local ESTIMATED BLOOD LOSS: 1 PATHOLOGY: none sent COMPLICATIONS: None Patient was transported to: same day Procedure Description: Pt is here today for thoracentesis for symptoms of shortness of breath. Chest x-ray was reviewed prior to beginning the procedure. Informed consent was obtained explaining risks and benefits of the procedure, including but not limited to bleeding, infection, pneumothorax, recurrence, complications of anesthesia, and other unforetold complications. PROCEDURE: The patient is brought to the procedure room and placed in the sea bruce position. Ultrasound is used to localize the pocket on the left chest. The area is marked and then prepped and draped in the usual sterile fashion using a ChloraPrep scrub solution. 10 cc's of 1% Lidocaine is used to anesthetize the T10 interspace. The small chai is made with a #11 blade. The needle and catheter is then inserted over the top of the rib, aspirating as it is inserted. The needle is then removed. The catheter is then hooked up to the Vacutainer system and 3200 cc's of straw-colored fluid is evacuated. The catheter is removed; pressure is held. Sterile compression dressing is applied. THe patient is brought to the procedure room and placed in the supine position. Placement chosen on top in the right upper quadrant. A time-out is done. Ultrasound is used to localize the pocket. The area is prepped and draped in the usual sterile fashion using a ChloraPrep scrub solution. 20 cc's of 1% Lidocaine with epinephrine is used for local anesthetization. The abdomen is punctured and the catheter is inserted. 3950 liters of light yellow fluid is evacuated today. The catheter is removed. Pressure dressing is applied. The patient tolerated the procedure well without complication. Portable chest x-ray shows no pneumothorax. Pt is given instructions in wound care, activity, medications, and warning signs: SOB, increasing in pain, chest pain, redness or temperature- if these occur, come to ED.
[2020-10-02] MEDS: ALBUMIN HUMAN 25 GM/100 ML BTL IV ×2 (11:24→11:48)
--- NOTE | 2020-10-02 11:40 | PDOC.DSDIS_ITS ---
Discharge Plan Disposition Patient Disposition: HOME Condition: Good Discharge Details Reason For Visit: para/thoro Attending Provider: Hazel Lindsey Primary Care Provider: Dillon Muller Home Meds and New Rx's Prescriptions: No Action potassium chloride 10 mEq capsule, extended release 10 meq PO DAILY RF: 0 sofosbuvir-velpatasvir [Epclusa] 400-100 mg tablet 1 tab PO DAILY RF: 0 furosemide 80 mg tablet 80 mg PO BID RF: 0 nitroglycerin 0.4 mg Tablet, Sublingual 0.4 mg SUBLINGUAL Q5M PRNRF: 0 Xifaxan 550 mg tablet 550 mg PO BID RF: 0 lactulose 20 gram/30 mL Solution 20 g PO DAILY RF: 0 metoprolol succinate 100 mg tablet extended release 24 hr 100 mg PO DAILY RF: 0 magnesium Tablet BID RF: 0 Discharge Instructions Additional Instructions: -Next Para/Thoro is 10/08. You need to be at the hospital at: [facility] 10/20. Need to be there at 2:30pm. -I am faxing your labs from 10/[address] Abbasi at [facility] [place] for her to review. -Consider having a Port placed for IV acess. Activity:: no lifting over 20#'s Remove Dressings/Wound Care:: 24 hours Shower/Bathe:: 24 hours Diet:: Low Sodium Discharge Orders Discharge Orders: Discharge Order (Routine); Ordered 10/02/20 Ordered By: Hazel Lindsey DS: Diagnosis Discharge Diagnosis (1) Atrial fibrillation with controlled ventricular rate: Status: Acute (2) Hypokalemia due to excessive renal loss of potassium: Status: Acute (3) Cirrhosis of liver with ascites: Status: Acute (4) Pleural effusion: Status: Active
[2020-10-02 14:50] LABS: Ferritin 416 ng/mL (8-252)
== END 2020-10-02 12:25 | disposition home or self-care (01) ==
PROVIDERS: PCP Family Medicine; Visit Provider Surgery
PROC: 0W9G3ZZ Drainage of Peritoneal Cavity, Percutaneous Approach (ICD-10-PCS; CPT 49082; principal; 2020-10-02 09:45)
PROC: (CPT 32554; 2020-10-02 09:45)
DX: K74.60 Unspecified cirrhosis of liver (principal); J90 Pleural effusion, not elsewhere classified; R18.8 Other ascites
CPT/HCPCS: 32556; 49082; 80053; 85027; 96365; 71045; 71046; 82728; 82977; 83540; 83550; 83735; 85610; 86140

== ENCOUNTER 2020-10-08 07:52 | Day surgery (SDC) | payer MEDICARE, MEDICAID, SELFPAY ==
--- NOTE | 2020-10-08 | DI.RAD_ITS ---
EXAM: XR PORTABLE CHEST AP CLINICAL HISTORY: post thoro TECHNIQUE: 2D digital imaging was performed. COMPARISON: CR XR PORTABLE CHEST AP from 10/02/2020 CR XR CHEST 2V PA LATERAL from 10/08/2020 FINDINGS: MEDIASTINUM: Normal. HEART: Normal. PULMONARY VASCULATURE: Normal. LUNGS: Linear atelectasis in the right lung base. PLEURAL SPACE: No residual right pleural effusion is seen following thoracentesis. No pneumothorax. BONE:Within normal limits for the patient's age. OTHER FINDINGS:Normal. IMPRESSION: Resolution of the right pleural effusion following thoracentesis. No pneumothorax. DATA REPOSITORY: RADIATION DOSE DELIVERED:
--- NOTE | 2020-10-08 07:49 | DI.RAD_ITS ---
EXAM: XR CHEST 2V PA LATERAL CLINICAL HISTORY: pre-op, pleural effusion,J90 TECHNIQUE: 2D digital imaging was performed. COMPARISON: CR XR PORTABLE CHEST AP from 10/02/2020 CR XR CHEST 2V PA LATERAL from 10/02/2020 FINDINGS: MEDIASTINUM: Normal. HEART: Normal. PULMONARY VASCULATURE: Normal. LUNGS: Clear. PLEURAL SPACE: There has been interval reaccumulation of a moderate to large right pleural effusion o ccupying at least half of the right hemithorax. No left pleural effusion. No pneumothorax. BONE:Within normal limits for the patient's age. There is again seen a right convex scoliosis. OTHER FINDINGS:Normal. IMPRESSION: Re-accumulation of a moderate to large right pleural effusion. DATA REPOSITORY: RADIATION DOSE DELIVERED:
--- NOTE | 2020-10-08 07:53 | W.PM.OP ---
Date of service: 10/08/20 Time of Service: 07:53 Operative Note Operative Note DATE OF PROCEDURE: 10/08/20 PRE-OP DIAGNOSIS: cirrhosis/sob POST-OP DIAGNOSIS: same PROCEDURE: para/thoro SURGEON: Hazel Lindsey ANESTHESIA: local COMPLICATIONS: None Patient was transported to: same day Patient's condition: stable Procedure Description: The patient is brought to the procedure room and placed in the supine position. Placement chosen on top in the right upper quadrant. A time-out is done. Ultrasound is used to localize the pocket. The area is prepped and draped in the usual sterile fashion using a ChloraPrep scrub solution. 20 cc's of 1% Lidocaine with epinephrine is used for local anesthetization. The abdomen is punctured and the catheter is inserted. 2.9 liters of light yellow fluid is evacuated today. The catheter is removed. Pressure dressing is applied. The patient tolerated the procedure well without complication. Pt is here today for thoracentesis for symptoms of shortness of breath. Chest x-ray was reviewed prior to beginning the procedure. Informed consent was obtained explaining risks and benefits of the procedure, including but not limited to bleeding, infection, pneumothorax, recurrence, complications of anesthesia, and other unforetold complications. PROCEDURE: The patient is brought to the procedure room and placed in the seated position. Ultrasound is used to localize the pocket on the left chest. The area is marked and then prepped and draped in the usual sterile fashion using a ChloraPrep scrub solution. 10 cc's of 1% Lidocaine is used to anesthetize the T10 interspace. The small chai is made with a #11 blade. The needle and catheter is then inserted over the top of the rib, aspirating as it is inserted. The needle is then removed. The catheter is then hooked up to the Vacutainer system and 2600 cc's of straw-colored fluid is evacuated. The catheter is removed; pressure is held. Sterile compression dressing is applied. Portable chest x-ray shows no pneumothorax. Pt is given instructions in wound care, activity, medications, and warning signs: SOB, increasing in pain, chest pain, redness or temperature- if these occur, come to ED. Labs are reviewed today. Her hemoglobin is better. But her total bili and her creatinine are starting to creep up again. Her potassium is stable today. She does have follow-up with Dr. Muller from [facility] on 10/20 and will need to be closely followed by him and work in conjunction with Dr. Abbasi from [facility]. We will plan on seeing her back on 10/12 for her weekly paracentesis thoracentesis. We discussed putting in a port today which I think will be very beneficial. LIBAN at had no problems with her having central line in. Dr. Abbasi just concerned that she will not take care of a PICC line and get an infection. But she was fine with an implanted Mediport.
[2020-10-08 08:04] VITALS: BP 106/71; PULSE 67; RESP 24; TEMP 36.3; O2SAT 100
[2020-10-08] MEDS: Normal Saline Flush 10 ML SYR ×2 (08:30→09:59)
--- NOTE | 2020-10-08 09:38 | PDOC.DSDIS_ITS ---
Discharge Plan Disposition Patient Disposition: HOME Condition: Fair Discharge Details Reason For Visit: dawson/jesus Attending Provider: aHzel Lindsey Primary Care Provider: Dillon Muller Home Meds and New Rx's Prescriptions: Continued potassium chloride 10 mEq capsule, extended release 10 meq PO DAILY RF: 0 sofosbuvir-velpatasvir [Epclusa] 400-100 mg tablet 1 tab PO DAILY RF: 0 furosemide 80 mg tablet 80 mg PO BID RF: 0 nitroglycerin 0.4 mg Tablet, Sublingual 0.4 mg SUBLINGUAL Q5M PRNRF: 0 Xifaxan 550 mg tablet 550 mg PO BID RF: 0 lactulose 20 gram/30 mL Solution 20 g PO DAILY RF: 0 metoprolol succinate 100 mg tablet extended release 24 hr 100 mg PO DAILY RF: 0 magnesium Tablet BID RF: 0 Discharge Instructions Additional Instructions: -follow up on 10/13 for repeat procedure -ibuprofen 400mg po 6hrs w/ food as needed for pain -use ice as well -2/2 appt at [facility] w/ Dr. Dumont Activity:: Activity as Tolerated Remove Dressings/Wound Care:: 24 hours Shower/Bathe:: 24 hours Diet:: Low Sodium DS: Diagnosis Discharge Diagnosis (1) Atrial fibrillation with controlled ventricular rate: Status: Acute (2) Hypokalemia due to excessive renal loss of potassium: Status: Acute (3) Cirrhosis of liver with ascites: Status: Acute (4) Cardiomyopathy: Status: Active (5) Pleural effusion: Status: Active (6) Viral hepatitis C: Status: Active
[2020-10-08] MEDS: ALBUMIN HUMAN 25 GM/100 ML BTL IV ×2 (09:58→10:35)
[2020-10-08] MEDS: Ibuprofen 400 MG TAB PO (09:59)
[2020-10-08 10:04] LABS: Abs Immature Grans 0.03 10^3/uL (0.0-0.06); Absolute Basophil Count 0.09 10^3/uL (0.0-0.2); Absolute Eosinophil Count 0.41 10^3/uL (0.0-0.7); Absolute Lymphocyte Count 1.65 10^3/uL (1.2-3.4); Absolute Neutrophil Count 3.24 10^3/uL (1.2-6.7); Basophils % 1.4; Eosinophils % 6.5; HCT 30.7 % (36.0-46.0); Immature Grans % 0.5; Lymphocytes % 26.1; MCH 31.8 pg (27.0-33.0); MCHC 32.6 % (32.0-36.0); MCV 97.8 fL (80-95); MPV 10.1 fL (8.0-11.0); Monocytes % 14.2; Neutrophils % 51.3; Nucleated RBC 0 %; Platelet Count 103 10^3/uL (130-400); RBC 3.14 10^6/uL (3.93-5.22); RDW 17.7 % (11.7-14.6); RDW-SD 62.4 fL; WBC 6.32 10^3/uL (4.4-10.8)
[2020-10-08 10:18] LABS: ALT 24 U/L (14-59); AST 26 U/L (15-37); Alkaline Phosphatase 164 U/L (46-116); Anion Gap 5.1 mmol/L (3-11); BUN 50 mg/dL (7-18); Bilirubin, Total 2.4 mg/dL (0.2-1.0); C-Reactive Protein 0.67 mg/dL (0.0-0.3); CO2 23.9 mmol/L (21.0-32.0); CREATININE 2.25 mg/dL (0.55-1.02); Calcium 8.3 mg/dL (8.5-10.1); Chloride 108 mmol/L (98-107); Estimated GFR 22.75 (mL/min/1.73m2); Glucose 96 mg/dL (74-106); Potassium 4.6 mmol/L (3.5-5.1); Sodium 137 mmol/L (136-145); Total Protein 5.8 g/dL (6.4-8.2)
[2020-10-08 10:20] VITALS: BP 94/56; PULSE 84; RESP 16; TEMP 36.2; O2SAT 100
--- NOTE | 2020-10-08 11:04 | PDOC.DSDIS_ITS ---
Discharge Plan Disposition Patient Disposition: HOME Condition: Fair Discharge Details Reason For Visit: dawson/jesus Attending Provider: Hazel Lindsey Primary Care Provider: Dillon Muller Home Meds and New Rx's Prescriptions: Continued potassium chloride 10 mEq capsule, extended release 10 meq PO DAILY RF: 0 sofosbuvir-velpatasvir [Epclusa] 400-100 mg tablet 1 tab PO DAILY RF: 0 furosemide 80 mg tablet 80 mg PO BID RF: 0 nitroglycerin 0.4 mg Tablet, Sublingual 0.4 mg SUBLINGUAL Q5M PRNRF: 0 Xifaxan 550 mg tablet 550 mg PO BID RF: 0 lactulose 20 gram/30 mL Solution 20 g PO DAILY RF: 0 metoprolol succinate 100 mg tablet extended release 24 hr 100 mg PO DAILY RF: 0 magnesium Tablet BID RF: 0 Discharge Instructions Additional Instructions: -follow up on 10/13 for repeat procedure -no tylenol or ibuprofen -use ice as well -2/2 appt at [facility] w/ Dr. Dumont Stand Alone Forms: Alireza Diego (DSU) Activity:: Activity as Tolerated Remove Dressings/Wound Care:: 24 hours Shower/Bathe:: 24 hours Diet:: Low Sodium DS: Diagnosis Discharge Diagnosis (1) Atrial fibrillation with controlled ventricular rate: Status: Acute (2) Hypokalemia due to excessive renal loss of potassium: Status: Acute (3) Cirrhosis of liver with ascites: Status: Acute (4) Cardiomyopathy: Status: Active (5) Pleural effusion: Status: Active (6) Viral hepatitis C: Status: Active
[2020-10-08 11:29] VITALS: BP 97/68; PULSE 73; RESP 18; TEMP 36.3; O2SAT 98
== END 2020-10-08 11:39 | disposition home or self-care (01) ==
PROVIDERS: PCP Family Medicine; Visit Provider Surgery
PROC: 0W9G3ZZ Drainage of Peritoneal Cavity, Percutaneous Approach (ICD-10-PCS; CPT 49082; principal; 2020-10-08 08:15)
PROC: (CPT 32554; 2020-10-08 08:15)
DX: K74.60 Unspecified cirrhosis of liver (principal); J90 Pleural effusion, not elsewhere classified; R18.8 Other ascites
CPT/HCPCS: 32556; 49082; 36415; 80053; 96365; 96366; 71045; 71046; 85025; 86140

== ENCOUNTER 2020-10-13 08:33 | Day surgery (SDC) | payer MEDICARE, MEDICAID, SELFPAY ==
--- NOTE | 2020-10-13 08:27 | DI.RAD_ITS ---
EXAM: XR CHEST 2V PA LATERAL INDICATION: pre-op, pleural effusion,j90. COMPARISON: CR XR PORTABLE CHEST AP from 10/08/2020 CR XR CHEST 2V PA LATERAL from 10/08/2020 CR XR PORTABLE CHEST AP from 10/08/2020 TECHNIQUE: 2D digital imaging was performed. FINDINGS: There is been reaccumulation of the right pleural effusion, similar in size to the pre thoracentesis exam. No pneumothorax is seen. Left lung is clear. Heart size is normal. Scoliosis is again noted . IMPRESSION: Reaccumulation of moderate to large size right pleural effusion. DATA REPOSITORY: RADIATION DOSE DELIVERED:
[2020-10-13 08:35] VITALS: BP 106/67; PULSE 85; RESP 16; TEMP 36.2; O2SAT 100
[2020-10-13 09:43] LABS: Abs Immature Grans 0.02 10^3/uL (0.0-0.06); Absolute Basophil Count 0.07 10^3/uL (0.0-0.2); Absolute Eosinophil Count 0.38 10^3/uL (0.0-0.7); Absolute Lymphocyte Count 1.38 10^3/uL (1.2-3.4); Absolute Monocyte Count 0.92 10^3/uL (0.1-0.8); Basophils % 1.2; Eosinophils % 6.6; HCT 29.3 % (36.0-46.0); HGB 9.6 g/dL (11.2-15.7); Immature Grans % 0.3; Lymphocytes % 23.9; MCH 31.6 pg (27.0-33.0); MCHC 32.8 % (32.0-36.0); MCV 96.4 fL (80-95); MPV 10.9 fL (8.0-11.0); Monocytes % 15.9; Neutrophils % 52.1; Nucleated RBC 0 %; Platelet Count 117 10^3/uL (130-400); RBC 3.04 10^6/uL (3.93-5.22); RDW 17.5 % (11.7-14.6); RDW-SD 62.1 fL; WBC 5.77 10^3/uL (4.4-10.8)
[2020-10-13 09:59] LABS: ALT 21 U/L (14-59); AST 23 U/L (15-37); Albumin 3.1 g/dL (3.4-5.0); Alkaline Phosphatase 210 U/L (46-116); Anion Gap 7.3 mmol/L (3-11); BUN 53 mg/dL (7-18); Bilirubin, Total 1.7 mg/dL (0.2-1.0); C-Reactive Protein 0.66 mg/dL (0.0-0.3); CO2 22.7 mmol/L (21.0-32.0); CREATININE 2.23 mg/dL (0.55-1.02); Calcium 8.2 mg/dL (8.5-10.1); Chloride 104 mmol/L (98-107); Estimated GFR 22.99 (mL/min/1.73m2); Glucose 81 mg/dL (74-106); Magnesium 1.7 mg/dL (1.8-2.4); Potassium 3.7 mmol/L (3.5-5.1); Sodium 134 mmol/L (136-145); Total Protein 5.7 g/dL (6.4-8.2)
--- NOTE | 2020-10-13 10:46 | ROE_ITS ---
Documented by User: KLEVER Bianchi 10/13/20 10:53 Date of service: 10/13/20 Time of Service: 10:46 Operative Note Operative Note DATE OF PROCEDURE: 10/13/20 PRE-OP DIAGNOSIS: Cirrhosis/SOB POST-OP DIAGNOSIS: same SURGEON: Hazel Lindsey VENEER DEPARTMENT MANAGER: Manuela Kessler ANESTHESIA: local (Lidocaine with Epi ) PATHOLOGY: none sent COMPLICATIONS: None Patient was transported to: same day Patient's condition: stable Procedure Description: THORACENTESIS PROCEDURE: Pt is here today for thoracentesis for symptoms of shortness of breath. Chest x-ray was reviewed prior to beginning the procedure. Informed consent was obtained explaining risks and benefits of the procedure, including but not limited to bleeding, infection, pneumothorax, recurrence, complications of anesthesia, and other unforetold complications. The patient is brought to the procedure room and placed in the seated position. Ultrasound is used to localize the pocket on the right chest. The area is marked and then prepped and draped in the usual sterile fashion using a ChloraPrep scrub solution. 7 cc's of 1% Lidocaine is used to anesthetize the T10 interspace. The small chai is made with a #11 blade. The needle and catheter is then inserted over the top of the rib, aspirating as it is inserted. The needle is then removed. The catheter is then hooked up to the Vacutainer system and 1600 cc's of straw-colored fluid is evacuated. The catheter is removed; 4-0 Prolene suture placed for wound closure, pressure is held. Sterile compression dressing is applied. Portable chest x-ray shows no pneumothorax. PARACENTESIS: The patient is brought to the procedure room and placed in the supine position. Placement chosen on top in the right upper quadrant. A time- out is done. Ultrasound is used to localize the pocket. The area is prepped and draped in the usual sterile fashion using a ChloraPrep scrub solution. 6 cc's of 1% Lidocaine with epinephrine is used for local anesthetization. The abdomen is punctured and the catheter is inserted. 2.7 liters of light yellow fluid is evacuated today. The catheter is removed. 3-0 Nylon, simple suture placed for wound closure. Pressure dressing is applied. The patient tolerated the procedure well without complication. Documented by User: Hazel Lindsey DO 10/14/20 19:39
[2020-10-13] MEDS: ALBUMIN HUMAN 25 GM/100 ML BTL IV ×2 (10:47→11:10)
--- NOTE | 2020-10-13 10:51 | W.PM.DSUDISC ---
Discharge Plan Disposition Patient Disposition: HOME Condition: Good Discharge Details Attending Provider: Hazel Lindsey Primary Care Provider: Dillon Muller Home Meds and New Rx's Prescriptions: Discontinued furosemide 80 mg tablet 80 mg PO DAILY RF: 0 No Action metoprolol tartrate 25 mg tablet 25 mg PO BID RF: 0 torsemide 20 mg Tablet 20 mg BID RF: 0 spironolactone 50 mg tablet 50 mg PO DAILY RF: 0 nitroglycerin 0.4 mg Tablet, Sublingual 0.4 mg SUBLINGUAL Q5M PRNRF: 0 Xifaxan 550 mg tablet 550 mg PO BID RF: 0 lactulose 20 gram/30 mL Solution 20 g PO DAILY RF: 0 magnesium Tablet BID RF: 0 Discharge Instructions Additional Instructions: -follow up w/ Dr. Rico on 10/20. -repeat procedures 10/20. Be in radiology at noon for the chest xray -labs from today 10/[address] Abbasi @ [facility] [place]. Cr is stable at 2.3. POtassium is normal at 3.7 -cont on same diuretics. Activity:: no strenuous activity for 24 hrs Shower/Bathe:: 24 hours Diet:: Low Sodium Discharge Orders Discharge Orders: Discharge Order (Routine); Ordered 10/12/20 Ordered By: Hazel Lindsey DS: Diagnosis Discharge Diagnosis (1) Hypokalemia due to excessive renal loss of potassium: Status: Acute (2) Cirrhosis of liver with ascites: Status: Acute (3) Congestive heart failure: Status: Active (4) Pleural effusion: Status: Active (5) Atrial fibrillation with controlled ventricular rate: Status: Acute (6) CKD (chronic kidney disease) stage 4, GFR 15-29 ml/min: Status: Acute
--- NOTE | 2020-10-13 11:05 | PDOC.DSDIS_ITS ---
Discharge Plan Disposition Patient Disposition: HOME Condition: Good Discharge Details Attending Provider: Hazel Lindsey Primary Care Provider: Dillon Muller Home Meds and New Rx's Prescriptions: Discontinued furosemide 80 mg tablet 80 mg PO DAILY RF: 0 No Action metoprolol tartrate 25 mg tablet 25 mg PO BID RF: 0 torsemide 20 mg Tablet 20 mg BID RF: 0 spironolactone 50 mg tablet 50 mg PO DAILY RF: 0 nitroglycerin 0.4 mg Tablet, Sublingual 0.4 mg SUBLINGUAL Q5M PRNRF: 0 Xifaxan 550 mg tablet 550 mg PO BID RF: 0 lactulose 20 gram/30 mL Solution 20 g PO DAILY RF: 0 magnesium Tablet BID RF: 0 Discharge Instructions Additional Instructions: -follow up w/ Dr. Rico on 10/20. -repeat procedures 10/20. Be in radiology at noon for the chest xray on 10/20. -labs from today 10/[address] [place] [facility] [place] Cr is stable at 2.3. POtassium is normal at 3.7 -cont on same diuretics. -Use Voltaren gel for pain in right ribs/shoulder. It is available at [employer] w/ out a prescription. It is in the aisel w/ the back pain medications. -4% lidocaine patches. wear for 12 hrs and than remove for 12 hrs. Next to the voltaren gel at [facility] Activity:: no strenuous activity for 24 hrs Shower/Bathe:: 24 hours Diet:: Low Sodium Discharge Orders Discharge Orders: Discharge Order (Routine); Ordered 10/12/20 Ordered By: Hazel Lindsey DS: Diagnosis Discharge Diagnosis (1) Hypokalemia due to excessive renal loss of potassium: Status: Acute (2) Cirrhosis of liver with ascites: Status: Acute (3) Congestive heart failure: Status: Active (4) Pleural effusion: Status: Active (5) Atrial fibrillation with controlled ventricular rate: Status: Acute (6) CKD (chronic kidney disease) stage 4, GFR 15-29 ml/min: Status: Acute
--- NOTE | 2020-10-13 11:10 | DI.RAD_ITS ---
EXAM: XR PORTABLE CHEST AP CLINICAL HISTORY: s/p thoro TECHNIQUE: 2D digital imaging was performed. COMPARISON: CR XR CHEST 2V PA LATERAL from 10/13/2020 FINDINGS: Patient is status post thoracentesis. There has been decrease in size of the right pleural effusion, now small. No pneumothorax is seen. The left lung remains clear. The heart size is normal. Scoli osis is again noted. IMPRESSION: Decreased size of right pleural effusion. No pneumothorax. DATA REPOSITORY: RADIATION DOSE DELIVERED:
[2020-10-13 11:15] VITALS: BP 94/55; PULSE 70; RESP 18; TEMP 36.6; O2SAT 100
== END 2020-10-13 11:45 | disposition home or self-care (01) ==
PROVIDERS: PCP Family Medicine; Visit Provider Surgery
PROC: 0W9G3ZZ Drainage of Peritoneal Cavity, Percutaneous Approach (ICD-10-PCS; CPT 49082; principal; 2020-10-13 09:00)
PROC: (CPT 32554; 2020-10-13 09:00)
DX: K74.60 Unspecified cirrhosis of liver (principal); R06.02 Shortness of breath; R18.8 Other ascites
CPT/HCPCS: 49082; 32554; 36415; 80053; 96365; 71045; 71046; 83735; 85025; 86140

== ENCOUNTER 2020-10-13 09:51 | Day surgery (SDC) | payer MEDICARE, MEDICAID, SELFPAY | END 2020-10-13 10:11 | PROVIDERS: PCP Family Medicine; Visit Provider Surgery | DX: Z53.9 Procedure and treatment not carried out, unspecified reason (principal) | CPT/HCPCS: 96365 ==

== ENCOUNTER 2020-10-20 04:00 | Outpatient (CLI) | payer MEDICARE, MEDICAID, SELFPAY ==
--- NOTE | 2020-10-20 07:30 | DI.RAD_ITS ---
EXAM: XR CHEST 2V PA LATERAL INDICATION: f/u pleural effusion,PREOP, J90,. COMPARISON: CR XR CHEST 2V PA LATERAL from 10/13/2020 CR XR PORTABLE CHEST AP from 10/13/2020 CR XR CHEST 2V PA LATERAL from 10/13/2020 TECHNIQUE: 2D digital imaging was performed. FINDINGS: There has been an interval increase in size of the right pleural effusion compared to the examination from 10/13/2020. There is now small to moderate-sized effusion present. There is a small amount of fluid in the minor fissure. Mild atelectasis is seen in the right lung. The left lung is clear. He art size and pulmonary vasculature appears stable. No pneumothorax is present. There is an S-type s coliosis of the thoracolumbar spine again noted. IMPRESSION: Small to moderate sized reaccumulated effusion in the right lung. DATA REPOSITORY: RADIATION DOSE DELIVERED:
== END 2020-10-20 04:01 | disposition home or self-care (01) ==
LOC: DI 04:00
PROVIDERS: PCP Family Medicine; Visit Provider Surgery
DX: J90 Pleural effusion, not elsewhere classified (principal)
CPT/HCPCS: 71046

== ENCOUNTER 2020-10-20 11:04 | Day surgery (SDC) | payer MEDICARE, MEDICAID, SELFPAY ==
[2020-10-20 11:16] VITALS: BP 114/78; PULSE 88; RESP 18; TEMP 36.3; O2SAT 100
[2020-10-20] MEDS: Sodium Bicarbonate 50 MEQ/50 ML VIAL (12:40)
--- NOTE | 2020-10-20 12:46 | W.PM.DSUDISC ---
Discharge Plan Disposition Patient Disposition: HOME Condition: Good Discharge Details Reason For Visit: paracentisis/thorocentisis Attending Provider: Hazel Lindsey Primary Care Provider: Dillon Muller Home Meds and New Rx's Prescriptions: No Action metoprolol tartrate 25 mg tablet 25 mg PO BID RF: 0 torsemide 20 mg Tablet 20 mg BID RF: 0 spironolactone 50 mg tablet 50 mg PO DAILY RF: 0 nitroglycerin 0.4 mg Tablet, Sublingual 0.4 mg SUBLINGUAL Q5M PRNRF: 0 Xifaxan 550 mg tablet 550 mg PO BID RF: 0 lactulose 20 gram/30 mL Solution 20 g PO DAILY RF: 0 magnesium Tablet BID RF: 0 Discharge Instructions Additional Instructions: We did not check labs today Appt today w/ Dr. Dumont Follow up:PLan repeat procedures on 10/27 Please call if you develop: fevers >101.5 Nausea or Vomiting Abdominal pain that is not transient DAY SURGERY UNIT POST Procedural INSTRUCTIONS a. Do not drive or operate dangerous equipment for 24 hours. b. Do not drink alcohol beverages for 24 hours (not even beer). c. Plan to go home and rest for the day. 2. Generally there are no restrictions on your activity after a day or so has gone by, but you may feel a bit fatigued for a few days. 3 After you arrive home you may have a light meal and return to a normal diet as you can tolerate it without feeling sick to your stomach. 4. After surgery, you may feel pain or discomfort. This should be only transient, but if it persists please contact your doctor. 5. If there are any questions regarding the findings of your procedure, please feel free to contact your doctor. 6. If you are unable to contact your doctor with a problem, contact the hospital at [phone]. 7. Continue all your regular medications unless directed otherwise. I understand the above instructions and have no questions. Signature of Patient or Responsible Adult Escort Date/Time Name of Responsible Adult Escort Signature of Nurse Date/Time Remove Dressings/Wound Care:: 24 hours Shower/Bathe:: 24 hours Diet:: Low Sodium Discharge Orders Discharge Orders: Discharge Order (Routine); Ordered 10/20/20 Ordered By: Hazel Lindsey DS: Diagnosis Discharge Diagnosis (1) Hypokalemia due to excessive renal loss of potassium: Status: Acute (2) Cirrhosis of liver with ascites: Status: Acute (3) Cardiomyopathy: Status: Active (4) Congestive heart failure: Status: Active (5) Pleural effusion: Status: Active (6) Viral hepatitis C: Status: Active (7) Atrial fibrillation with controlled ventricular rate: Status: Acute (8) CKD (chronic kidney disease) stage 4, GFR 15-29 ml/min: Status: Acute
--- NOTE | 2020-10-20 13:20 | ROE_ITS ---
Date of service: 10/20/20 Time of Service: 13:20 Operative Note Operative Note DATE OF PROCEDURE: 10/20/20 PRE-OP DIAGNOSIS: Cirrhosis/SOB POST-OP DIAGNOSIS: same PROCEDURE: THORACENTESIS PROCEDURE: Pt is here today for thoracentesis for symptoms of shortness of breath. Chest x-ray was reviewed prior to beginning the procedure. Informed consent was obtained explaining risks and benefits of the procedure, including but not limited to bleeding, infection, pneumothorax, recurrence, complications of anesthesia, and other unforetold complications. The patient is brought to the procedure room and placed in the seated position. Ultrasound is used to localize the pocket on the right chest. The area is marked and then prepped and draped in the usual sterile fashion using a ChloraP rep scrub solution. 9 cc's of 1% Lidocaine is used to anesthetize the T10 interspace. The small chai is made with a #11 blade. The needle and catheter is then inserted over the top of the rib, aspirating as it is inserted. The needle is then removed. The catheter is then hooked up to the Vacutainer system and 2300 cc's of straw-colored fluid is evacuated. The catheter is removed; 3-0 Prolene suture placed for wound closure, pressure is held. Sterile compression dressing is applied. Portable chest x-ray shows no pneumothorax. PARACENTESIS: The patient is brought to the procedure room and placed in the supine position. Placement chosen on top in the right upper quadrant. A time- out is done. Ultrasound is used to localize the pocket. The area is prepped and draped in the usual sterile fashion using a ChloraPrep scrub solution. 9 cc's of 1% Lidocaine with epinephrine is used for local anesthetization. The abdomen is punctured and the catheter is inserted. 450 cc's of light yellow fluid is evacuated today. The catheter is removed. 3-0 Prolene, simple suture placed for wound closure. Pressure dressing is applied. The patient tolerated the procedure well without complication. SURGEON: Hazel Lindsey ASSISTING SURGEON: Manuela Kessler ANESTHESIA: local (1% lidocaine with epi) ESTIMATED BLOOD LOSS: 2 PATHOLOGY: none sent COMPLICATIONS: None Patient was transported to: same day Patient's condition: stable
--- NOTE | 2020-10-20 13:21 | DI.RAD_ITS ---
EXAM: XR PORTABLE CHEST AP CLINICAL HISTORY: s/p thorocentisis TECHNIQUE: 2D digital imaging was performed. COMPARISON: CR XR PORTABLE CHEST AP from 10/13/2020 CR XR CHEST 2V PA LATERAL from 10/20/2020 CR XR CHEST 2V PA LATERAL from 10/20/2020 FINDINGS: MEDIASTINUM: Normal. HEART: Normal. PULMONARY VASCULATURE: Normal. LUNGS: Clear. PLEURAL SPACE: There is no right pleural effusion following right thoracentesis. No pneumothorax is present. BONE:Within normal limits for the patient's age. Stable right convex scoliosis. OTHER FINDINGS:Normal. IMPRESSION: Status post right thoracentesis. No pneumothorax or residual right pleural effusion. DATA REPOSITORY: RADIATION DOSE DELIVERED:
== END 2020-10-20 13:45 | disposition home or self-care (01) ==
PROVIDERS: PCP Family Medicine; Visit Provider Surgery
PROC: 0W9G3ZZ Drainage of Peritoneal Cavity, Percutaneous Approach (ICD-10-PCS; CPT 49082; principal; 2020-10-20 09:15)
PROC: (CPT 32554; 2020-10-20 09:15)
DX: K74.60 Unspecified cirrhosis of liver (principal); R18.8 Other ascites; R09.02 Hypoxemia
CPT/HCPCS: 49082; 32554; 71045; 71046

== ENCOUNTER → 2020-10-21 13:35 | Outpatient (BNVA) | payer MEDICARE, MEDICAID, SELFPAY | PROVIDERS: PCP Family Medicine; Referring Provider Family Medicine; Visit Provider Surgery | DX: Z51.89 Encounter for other specified aftercare (principal) ==

== ENCOUNTER 2020-10-27 09:30 | Day surgery (SDC) | payer MEDICARE, MEDICAID, SELFPAY ==
--- NOTE | 2020-10-27 09:31 | DI.RAD_ITS ---
EXAM: XR CHEST 2V PA LATERAL CLINICAL HISTORY: f/u pleural effusion, PREOP, J90,ASCITES,R18.9 TECHNIQUE: 2D digital imaging was performed. COMPARISON: CR XR CHEST 2V PA LATERAL from 10/20/2020 CR XR PORTABLE CHEST AP from 10/20/2020 FINDINGS: There has been reaccumulation of the right pleural effusion which now occupies approximately 60 perce nt of the right hemithorax. Heart size remains stable. Pulmonary vasculature is unremarkable. The left lung is clear. No left pleural effusion or pneumothorax. There is an unchanged scoliosis of th e thoracolumbar spine. IMPRESSION: Re-accumulation of a large right pleural effusion. DATA REPOSITORY: RADIATION DOSE DELIVERED:
[2020-10-27 09:52] VITALS: BP 116/81; PULSE 80; RESP 20; TEMP 36.4; O2SAT 99
[2020-10-27 10:26] LABS: ALT 28 U/L (14-59); AST 30 U/L (15-37); Albumin 3.2 g/dL (3.4-5.0); Alkaline Phosphatase 171 U/L (46-116); Anion Gap 8.9 mmol/L (3-11); BUN 44 mg/dL (7-18); Bilirubin, Total 3.3 mg/dL (0.2-1.0); C-Reactive Protein 0.74 mg/dL (0.0-0.3); CO2 26.1 mmol/L (21.0-32.0); Calcium 8.6 mg/dL (8.5-10.1); Chloride 104 mmol/L (98-107); Estimated GFR 26.06 (mL/min/1.73m2); Glucose 96 mg/dL (74-106); Potassium 3.1 mmol/L (3.5-5.1); Sodium 139 mmol/L (136-145); Total Protein 6.4 g/dL (6.4-8.2)
[2020-10-27] MEDS: ALBUMIN HUMAN 25 GM/100 ML BTL IV ×2 (12:50→13:13)
--- NOTE | 2020-10-27 13:09 | ROE_ITS ---
Documented by User: KLEVER Bianchi 10/27/20 13:13 Date of service: 10/27/20 Time of Service: 13:09 Operative Note Operative Note DATE OF PROCEDURE: 10/27/20 PRE-OP DIAGNOSIS: SOB/Cirrhosis POST-OP DIAGNOSIS: same PROCEDURE: THORACENTESIS PROCEDURE: Pt is here today for thoracentesis for symptoms of shortness of breath. Chest x-ray was reviewed prior to beginning the procedure. Informed consent was obtained explaining risks and benefits of the procedure, including but not limited to bleeding, infection, pneumothorax, recurrence, complications of anesthesia, and other unforetold complications. The patient is brought to the procedure room and placed in the seated position. Ultrasound is used to localize the pocket on the right chest. The area is marked and then prepped and draped in the usual sterile fashion using a ChloraPrep scrub solution. 7 cc's of 1% Lidocaine is used to anesthetize the T10 interspace. The small chai is made with a #11 blade. The needle and catheter is then inserted over the top of the rib, aspirating as it is inserted. The needle is then removed. The catheter is then hooked up to the Vacutainer system and 3100 cc's of straw-colored fluid is evacuated. The catheter is removed; 2-0 Prolene suture placed for wound closure, pressure is held. Sterile compression dressing is applied. Portable chest x-ray shows no pneumothorax. PARACENTESIS: The patient is brought to the procedure room and placed in the supine position. Placement chosen on top in the right upper quadrant. A time- out is done. Ultrasound is used to localize the pocket. The area is prepped and draped in the usual sterile fashion using a ChloraPrep scrub solution. 6 cc's of 1% Lidocaine with epinephrine is used for local anesthetization. The abdomen is punctured and the catheter is inserted. 4100 cc's of light yellow fluid is evacuated today. The catheter is removed. 2-0 Prolene, simple suture placed for wound closure. Pressure dressing is applied. The patient tolerated the procedure well without complication. SURGEON: Hazel Lindsey SOUND ENGINEERING TECHNICIAN: Manuela Kessler ANESTHESIA: local (1% Lidocaine with Epi ) ESTIMATED BLOOD LOSS: 3 PATHOLOGY: none sent COMPLICATIONS: None Patient was transported to: same day Patient's condition: stable Documented by User: Hazel Lindsey DO 10/27/20 14:10 Operative Note Operative Note Procedure Description: preOP wt: 84.5 Kg postOp wt: 78.1Kg
--- NOTE | 2020-10-27 13:10 | W.PM.DSUDISC ---
Discharge Plan Disposition Patient Disposition: HOME Condition: Good Discharge Details Reason For Visit: fluid removal Attending Provider: Hazel Lindsey Primary Care Provider: Dillon Muller Home Meds and New Rx's Prescriptions: No Action sofosbuvir-velpatasvir [Epclusa] 400-100 mg tablet 1 tab PO DAILY 84 Days Qty: 60 RF: 0 magnesium oxide 500 mg tablet 500 mg PO BID Qty: 180 RF: 3 metoprolol tartrate 25 mg tablet 25 mg PO BID RF: 0 torsemide 20 mg Tablet 20 mg BID RF: 0 spironolactone 50 mg tablet 50 mg PO DAILY RF: 0 nitroglycerin 0.4 mg Tablet, Sublingual 0.4 mg SUBLINGUAL Q5M PRNRF: 0 Xifaxan 550 mg tablet 550 mg PO BID RF: 0 lactulose 20 gram/30 mL Solution 20 g PO DAILY RF: 0 Discharge Instructions Additional Instructions: 2L fluid a day total low sodium diet Return to the ER if severe chest pain, shortness of breath, heavy bleeding. Activity:: No strenuous activity or lifting over 20 pounds x 24 hours. Remove Dressings/Wound Care:: 24 hours Shower/Bathe:: 24 hours Diet:: Low Sodium Discharge Orders Discharge Orders: Discharge Order (Routine); Ordered 10/27/20 Ordered By: Hazel Lindsey DS: Diagnosis Discharge Diagnosis (1) Cirrhosis of liver with ascites: Status: Acute (2) Cardiomyopathy: Status: Active (3) Congestive heart failure: Status: Active (4) Pleural effusion: Status: Active (5) Viral hepatitis C: Status: Active (6) Advanced hepatic cirrhosis: Status: Chronic (7) Atrial fibrillation with controlled ventricular rate: Status: Acute (8) Hypokalemia: Status: Acute
--- NOTE | 2020-10-27 13:15 | DI.RAD_ITS ---
EXAM: XR PORTABLE CHEST AP CLINICAL HISTORY: s/p thorocentisis TECHNIQUE: 2D digital imaging was performed. COMPARISON: CR XR CHEST 2V PA LATERAL from 10/27/2020 FINDINGS: MEDIASTINUM: Normal. HEART: Normal. PULMONARY VASCULATURE: Normal. LUNGS: Clear. PLEURAL SPACE: There has been a significant reduction in the right pleural effusion following thorace ntesis. There is a small right residual pleural effusion present. No lung markings are seen in the right lung apex is raising the question of a pneumothorax. An expiratory chest x-ray may be consider ed for further evaluation. BONE:Within normal limits for the patient's age. OTHER FINDINGS:Normal. IMPRESSION: 1. Marked reduction in the right pleural effusion following thoracentesis. There is a residual small right pleural effusion present. 2. Absent lung markings in the right lung apex raising the question of a tiny right pneumothorax. An expiratory chest x-ray may be considered for further evaluation. DATA REPOSITORY: RADIATION DOSE DELIVERED:
== END 2020-10-27 13:52 | disposition home or self-care (01) ==
PROVIDERS: PCP Family Medicine; Visit Provider Surgery
PROC: 0W9G3ZZ Drainage of Peritoneal Cavity, Percutaneous Approach (ICD-10-PCS; CPT 49082; principal; 2020-10-27 10:45)
PROC: (CPT 32554; 2020-10-27 10:45)
DX: R06.02 Shortness of breath (principal); K74.60 Unspecified cirrhosis of liver; R18.8 Other ascites
CPT/HCPCS: 49082; 32554; 80053; 96365; 71045; 71046; 86140

== ENCOUNTER 2020-11-03 08:15 | Day surgery (SDC) | payer MEDICARE, MEDICAID, SELFPAY ==
--- NOTE | 2020-11-03 | DI.RAD_ITS ---
EXAM: XR PORTABLE CHEST AP CLINICAL HISTORY: s/p thorocentisis TECHNIQUE: COMPARISON: CR XR CHEST 2V PA LATERAL from 11/03/2020 FINDINGS: AP post thoracentesis film was obtained. Previously described right pleural effusion is markedly dec reased in size and not visible on this frontal film. No pneumothorax identified. IMPRESSION: RADIATION DOSE DELIVERED: Total DLP
--- NOTE | 2020-11-03 | DI.RAD_ITS ---
EXAM: XR CHEST 2V PA LATERAL CLINICAL HISTORY: PRE THORACENTESIS, PLEURAL EFFUSION, J90 TECHNIQUE: COMPARISON: CR XR PORTABLE CHEST AP from 10/27/2020 FINDINGS: Examination is compared with previous examination of October 27. There is been reaccumulation of a previously noted right pleural effusion with the effusion markedly enlarged in comparison with the p rior examination, superior aspect of the effusion at midthoracic level on PA film. Lungs appear medardo sly clear. Cardiac size within normal limits. No left pleural effusion seen. IMPRESSION: Markedly increased size reaccumulated right pleural effusion since October 27. RADIATION DOSE DELIVERED: Total DLP
[2020-11-03 08:26] VITALS: BP 106/63; PULSE 75; RESP 20; TEMP 36.8; O2SAT 100
[2020-11-03] MEDS: Normal Saline Flush 10 ML SYR IVP (12:55)
--- NOTE | 2020-11-03 13:57 | W.PM.OP ---
Date of service: 11/03/20 Time of Service: 13:57 Operative Note Operative Note DATE OF PROCEDURE: 11/03/20 PRE-OP DIAGNOSIS: cirrhosis POST-OP DIAGNOSIS: same PROCEDURE: thorocentisis: 2600 Paracentisis:2700 SURGEON: Hazel Lindsey ANESTHESIA TYPE: Local By Surgeon Refer to Anesthesia Record ESTIMATED BLOOD LOSS: 0 COMPLICATIONS: None Patient was transported to: same day Procedure Description: Pt is here today for thoracentesis for symptoms of shortness of breath. Chest x-ray was reviewed prior to beginning the procedure. Informed consent was obtained explaining risks and benefits of the procedure, including but not limited to bleeding, infection, pneumothorax, recurrence, complications of anesthesia, and other unforetold complications. PROCEDURE: The patient is brought to the procedure room and placed in the seated position. Ultrasound is used to localize the pocket on the left chest. The area is marked and then prepped and draped in the usual sterile fashion using a ChloraPrep scrub solution. 10 cc's of 1% Lidocaine is used to anesthetize the T10 interspace. The small chai is made with a #11 blade. The needle and catheter is then inserted over the top of the rib, aspirating as it is inserted. The needle is then removed. The catheter is then hooked up to the Vacutainer system and 2600 cc's of straw-colored fluid is evacuated. The catheter is removed; pressure is held. Sterile compression dressing is applied. Portable chest x-ray shows no pneumothorax. The patient is brought to the procedure room and placed in the supine position. Placement chosen on top in the right upper quadrant. A time-out is done. Ultrasound is used to localize the pocket. The area is prepped and draped in the usual sterile fashion using a ChloraPrep scrub solution. 20 cc's of 1% Lidocaine with epinephrine is used for local anesthetization. The abdomen is punctured and the catheter is inserted. 2700cc of light yellow fluid is evacuated today. The catheter is removed. Pressure dressing is applied. The patient tolerated the procedure well without complication. Pt is given instructions in wound care, activity, medications, and warning signs: SOB, increasing in pain, chest pain, redness or temperature- if these occur, come to ED.
--- NOTE | 2020-11-03 14:00 | W.PM.DSUDISC ---
Discharge Plan Discharge Details Attending Provider: Hazel Lindsey Primary Care Provider: Dillon Muller Home Meds and New Rx's Prescriptions: No Action sofosbuvir-velpatasvir [Epclusa] 400-100 mg tablet 1 tab PO DAILY 84 Days Qty: 60 RF: 0 metoprolol tartrate 25 mg tablet 50 mg PO BID RF: 0 magnesium oxide 400 mg magnesium tablet 400 mg PO DAILY Qty: 90 RF: 3 torsemide 20 mg Tablet 20 mg BID RF: 0 spironolactone 50 mg tablet 100 mg PO DAILY RF: 0 nitroglycerin 0.4 mg Tablet, Sublingual 0.4 mg SUBLINGUAL Q5M PRNRF: 0 Xifaxan 550 mg tablet 550 mg PO BID RF: 0 lactulose 20 gram/30 mL Solution 20 g PO DAILY RF: 0 DS: Diagnosis Discharge Diagnosis (1) Hypokalemia due to excessive renal loss of potassium: Status: Acute (2) Cirrhosis of liver with ascites: Status: Acute (3) Cardiomyopathy: Status: Active (4) Congestive heart failure: Status: Active (5) Pleural effusion: Status: Active (6) Tachycardia: Status: Active (7) Viral hepatitis C: Status: Active (8) Atrial fibrillation with controlled ventricular rate: Status: Acute (9) Advanced hepatic cirrhosis: Status: Chronic
[2020-11-03] MEDS: ALBUMIN HUMAN 25 GM/100 ML BTL IV ×2 (14:20→14:59)
[2020-11-03 16:00] VITALS: BP 111/65; PULSE 74; RESP 16; TEMP 36.5; O2SAT 100
== END 2020-11-03 16:03 ==
LOC: SUR 08:15
PROVIDERS: PCP Family Medicine; Visit Provider Surgery
PROC: 0W9G3ZZ Drainage of Peritoneal Cavity, Percutaneous Approach (ICD-10-PCS; CPT 49082; principal; 2020-11-03 09:45)
PROC: (CPT 32554; 2020-11-03 09:45)
DX: R06.02 Shortness of breath (principal); K74.60 Unspecified cirrhosis of liver; R18.8 Other ascites; J90 Pleural effusion, not elsewhere classified
CPT/HCPCS: 49082; 32554; 36415; 80053; 96365; 71045; 71046

== ENCOUNTER 2020-11-03 10:03 | Outpatient (CLI) | payer MEDICARE, MEDICAID, SELFPAY ==
[2020-11-03 10:46] LABS: ALT 25 U/L (14-59); AST 26 U/L (15-37); Alkaline Phosphatase 182 U/L (46-116); Anion Gap 9.1 mmol/L (3-11); BUN 43 mg/dL (7-18); Bilirubin, Total 2.1 mg/dL (0.2-1.0); CO2 24.9 mmol/L (21.0-32.0); CREATININE 1.8 mg/dL (0.55-1.02); Calcium 8.6 mg/dL (8.5-10.1); Chloride 104 mmol/L (98-107); Estimated GFR 29.43 (mL/min/1.73m2); Glucose 94 mg/dL (74-106); Potassium 3.7 mmol/L (3.5-5.1); Sodium 138 mmol/L (136-145); Total Protein 5.9 g/dL (6.4-8.2)
== END 2020-11-03 10:04 | disposition home or self-care (01) ==
LOC: LBO 10:06
PROVIDERS: Internal Medicine Gastroenterology; PCP Family Medicine; Visit Provider Surgery
DX: B19.20 Unspecified viral hepatitis C without hepatic coma (principal); K74.69 Other cirrhosis of liver
CPT/HCPCS: 36415; 80053

== ENCOUNTER 2020-11-10 02:27 | Outpatient (CLI) | payer MEDICARE, MEDICAID, SELFPAY ==
[2020-11-10 14:22] LABS: ALT 32 U/L (14-59); AST 32 U/L (15-37); Albumin 3.4 g/dL (3.4-5.0); Alkaline Phosphatase 191 U/L (46-116); BUN 44 mg/dL (7-18); Bilirubin, Total 2.4 mg/dL (0.2-1.0); CREATININE 1.8 mg/dL (0.55-1.02); Calcium 8.6 mg/dL (8.5-10.1); Chloride 101 mmol/L (98-107); Estimated GFR 29.43 (mL/min/1.73m2); Glucose 87 mg/dL (74-106); Potassium 3.3 mmol/L (3.5-5.1); Sodium 137 mmol/L (136-145); Total Protein 6.5 g/dL (6.4-8.2)
== END 2020-11-10 02:28 | disposition home or self-care (01) ==
LOC: LBO 02:27
PROVIDERS: PCP Family Medicine; Visit Provider Internal Medicine Gastroenterology
DX: B19.20 Unspecified viral hepatitis C without hepatic coma (principal); K74.69 Other cirrhosis of liver
CPT/HCPCS: 36415; 80053

== ENCOUNTER 2020-11-10 12:50 | Day surgery (SDC) | payer MEDICARE, MEDICAID, SELFPAY ==
--- NOTE | 2020-11-10 | DI.RAD_ITS ---
EXAM: XR PORTABLE CHEST AP CLINICAL HISTORY: s/p thorocentisis. TECHNIQUE: 2D digital imaging was performed. COMPARISON: Chest x-ray earlier same date. FINDINGS: Heart size is unchanged. The mediastinum is not widened. The size of the large right pleural effusion is significantly decreased. There is a tiny apical pneu mothorax. Opposite-left lung is clear. IMPRESSION: There is a tiny right apical pneumothorax post thoracentesis. The size of the right pleural effusion has decreased by approximately 90 percent. DATA REPOSITORY: RADIATION DOSE DELIVERED:
--- NOTE | 2020-11-10 08:00 | DI.RAD_ITS ---
EXAM: XR CHEST 2V PA LATERAL CLINICAL HISTORY: f/u pleural effusion,PRE THORACENTESIS,J90 TECHNIQUE: 2D digital imaging was performed. COMPARISON: CR XR PORTABLE CHEST AP from 11/03/2020 CR XR CHEST 2V PA LATERAL from 11/03/2020 FINDINGS: There has been reaccumulation of the right pleural effusion, moderate to large, occupying 2/3 of the right chest volume. There adjacent compressive atelectasis. The left lung is clear. The heart size is normal. Scoliosis is again noted. IMPRESSION: Reaccumulation of right pleural effusion. DATA REPOSITORY: RADIATION DOSE DELIVERED:
--- NOTE | 2020-11-10 10:24 | W.PM.DSUDISC ---
Discharge Plan Disposition Patient Disposition: HOME Condition: Good Discharge Details Reason For Visit: thoro & Para Attending Provider: Hazel Lindsey Primary Care Provider: Dillon Muller Home Meds and New Rx's Prescriptions: Continued sofosbuvir-velpatasvir [Epclusa] 400-100 mg tablet 1 tab PO DAILY 84 Days Qty: 60 RF: 0 metoprolol tartrate 25 mg tablet 50 mg PO TID RF: 0 magnesium oxide 400 mg magnesium tablet 400 mg PO DAILY Qty: 90 RF: 3 torsemide 20 mg tablet 40 mg PO DAILY RF: 0 lactulose 20 gram/30 mL solution 20 g PO TID PRNRF: 0 spironolactone 50 mg tablet 100 mg PO DAILY RF: 0 nitroglycerin 0.4 mg Tablet, Sublingual 0.4 mg SUBLINGUAL Q5M PRNRF: 0 Xifaxan 550 mg tablet 550 mg PO BID RF: 0 Discharge Instructions Additional Instructions: repeat procedure next monday ice prn low salt/high protein diet call if any redness/bleeding/green drainage. Activity:: no strenuous activty or lifting over 20#'s x 24hrs Remove Dressings/Wound Care:: 24 hours Shower/Bathe:: 24 hours Diet:: Low Sodium Discharge Orders Discharge Orders: Discharge Order (Routine); Ordered 11/10/20 Ordered By: Hazel Lindsey DS: Diagnosis Discharge Diagnosis (1) Hypokalemia due to excessive renal loss of potassium: Status: Acute (2) Cirrhosis of liver with ascites: Status: Acute (3) Cardiomyopathy: Status: Active (4) Congestive heart failure: Status: Active (5) Pleural effusion: Status: Active (6) Tachycardia: Status: Active (7) Viral hepatitis C: Status: Active
[2020-11-10 13:18] VITALS: BP 115/71; PULSE 76; RESP 18; TEMP 36.2; O2SAT 100
[2020-11-10] MEDS: Normal Saline Flush 10 ML SYR IV ×2 (13:45→16:03)
[2020-11-10] MEDS: ALBUMIN HUMAN 25 GM/100 ML BTL 200 GM ×2 (16:03→16:38)
--- NOTE | 2020-11-10 16:22 | DI.VRAD_ITS ---
PROCEDURE INFORMATION: Exam: XR Chest, 1 View Exam date and time: 11/10/2020 4:09 PM Age: 55 years old Clinical indication: Other: S/P thorocentisis TECHNIQUE: Imaging protocol: XR of the chest Views: 1 view. COMPARISON: CR XR CHEST 2V PA LATERAL 11/10/2020 12:39 PM FINDINGS: Lungs: Unremarkable. No consolidation. Pleural spaces: There is near complete resolution of the large right pleural effusion since the prior exam consistent with a history of thoracentesis. There is minimal residual blunting of the right costophrenic angle. A small amount of fluid layers within the right minor fissure. No pneumothorax is seen. Heart/Mediastinum: Unremarkable. No cardiomegaly. Bones/joints: Unremarkable. IMPRESSION: Status post right thoracentesis with no evidence of pneumothorax. There has been near complete resolution of the right pleural effusion. Dictated and Authenticated by: Jere Stockton MD. Ordering:JEFFREY Oliva MD
[2020-11-10 16:44] VITALS: BP 102/63; PULSE 65; RESP 16; TEMP 36.1; O2SAT 100
--- NOTE | 2020-11-10 16:44 | W.PM.OP ---
Date of service: 11/10/20 Time of Service: 16:44 Operative Note Operative Note DATE OF PROCEDURE: 11/10/20 PRE-OP DIAGNOSIS: cirrhosis POST-OP DIAGNOSIS: same PROCEDURE: para/thoro SURGEON: Hazel Lindsey ANESTHESIA TYPE: Local By Surgeon Refer to Anesthesia Record ESTIMATED BLOOD LOSS: 0 PATHOLOGY: none sent COMPLICATIONS: None Patient was transported to: same day Procedure Description: The patient is brought to the procedure room and placed in the supine position. Placement chosen on top in the right upper quadrant. A time-out is done. Ultrasound is used to localize the pocket. The area is prepped and draped in the usual sterile fashion using a ChloraPrep scrub solution. 20 cc's of 1% Lidocaine with epinephrine is used for local anesthetization. The abdomen is punctured and the catheter is inserted. 2800cc of light yellow fluid is evacuated today. The catheter is removed. Pressure dressing is applied. The patient tolerated the procedure well without complication. Pt is here today for thoracentesis for symptoms of shortness of breath. Chest x-ray was reviewed prior to beginning the procedure. Informed consent was obtained explaining risks and benefits of the procedure, including but not limited to bleeding, infection, pneumothorax, recurrence, complications of anesthesia, and other unforetold complications. PROCEDURE: The patient is brought to the procedure room and placed in the seated position. Ultrasound is used to localize the pocket on the left chest. The area is marked and then prepped and draped in the usual sterile fashion using a ChloraPrep scrub solution. 10 cc's of 1% Lidocaine is used to anesthetize the T10 interspace. The small chai is made with a #11 blade. The needle and catheter is then inserted over the top of the rib, aspirating as it is inserted. The needle is then removed. The catheter is then hooked up to the Vacutainer system and 3300 cc's of straw-colored fluid is evacuated. The catheter is removed; pressure is held. Sterile compression dressing is applied. Statistically this is the same amount of fluid that she always has. Portable chest x-ray shows no pneumothorax. Pt is given instructions in wound care, activity, medications, and warning signs: SOB, increasing in pain, chest pain, redness or temperature- if these occur, come to ED.
== END 2020-11-10 17:15 | disposition home or self-care (01) ==
PROVIDERS: PCP Family Medicine; Visit Provider Surgery
PROC: 0W9G3ZZ Drainage of Peritoneal Cavity, Percutaneous Approach (ICD-10-PCS; CPT 49082; principal; 2020-11-10 14:00)
PROC: (CPT 32554; 2020-11-10 14:00)
DX: K74.60 Unspecified cirrhosis of liver (principal); J90 Pleural effusion, not elsewhere classified; R18.8 Other ascites; R06.02 Shortness of breath
CPT/HCPCS: 49082; 32554; 36415; 80053; 96365; 71045; 71046

== ENCOUNTER 2020-11-17 11:37 | Day surgery (SDC) | payer MEDICARE, MEDICAID, SELFPAY ==
--- NOTE | 2020-11-17 | DI.RAD_ITS ---
EXAM: XR PORTABLE CHEST AP CLINICAL HISTORY: s/p thoro TECHNIQUE: COMPARISON: CR,XR XR PORTABLE CHEST AP from 11/10/2020 CR XR CHEST 2V PA LATERAL from 11/17/2020 FINDINGS: Portable AP chest post thoracentesis obtained at 1310 hours. Heart is not enlarged. The lungs are c lear and remain well expanded post thoracentesis. There is marked interval decrease in size of the r ight pleural effusion comparison with the examination obtained earlier today. IMPRESSION: RADIATION DOSE DELIVERED: Total DLP
--- NOTE | 2020-11-17 11:38 | DI.RAD_ITS ---
EXAM: XR CHEST 2V PA LATERAL CLINICAL HISTORY: f/u pleural effusion,PRE THORACENTESIS,J90, TECHNIQUE: COMPARISON: CR,XR XR PORTABLE CHEST AP from 11/10/2020 CR XR CHEST 2V PA LATERAL from 11/10/2020 FINDINGS: In comparison with prior examination of November 10, there has been reaccumulation of a large right pleural effusion since the thoracentesis performed on that date. Visualized lungs appear clear. No left pleural effusion seen. Cardiac size within normal limits. IMPRESSION: Reaccumulation of right pleural effusion, the effusion is probably somewhat smaller than on the pre t horacentesis film obtained on November 10. RADIATION DOSE DELIVERED: Total DLP
--- NOTE | 2020-11-17 11:42 | W.PM.OP ---
Date of service: 11/17/20 Time of Service: 11:42 Operative Note Operative Note DATE OF PROCEDURE: 11/17/20 PRE-OP DIAGNOSIS: cirrhosis POST-OP DIAGNOSIS: same PROCEDURE: thoro/paracentisis SURGEON: Hazel Lindsey ANESTHESIA TYPE: Local By Surgeon Refer to Anesthesia Record ESTIMATED BLOOD LOSS: 2 PATHOLOGY: none sent Patient was transported to: same day Patient's condition: stable Findings: Procedure Description: Pt is here today for thoracentesis for symptoms of shortness of breath. Chest x-ray was reviewed prior to beginning the procedure. Informed consent was obtained explaining risks and benefits of the procedure, including but not limited to bleeding, infection, pneumothorax, recurrence, complications of anesthesia, and other unforetold complications. PROCEDURE: The patient is brought to the procedure room and placed in the seated position. Ultrasound is used to localize the pocket on the left chest. The area is marked and then prepped and draped in the usual sterile fashion using a ChloraPrep scrub solution. 10 cc's of 1% Lidocaine is used to anesthetize the T10 interspace. The small chai is made with a #11 blade. The needle and catheter is then inserted over the top of the rib, aspirating as it is inserted. The needle is then removed. The catheter is then hooked up to the Vacutainer system and 2000 cc's of straw-colored fluid is evacuated. The catheter is removed; pressure is held. Sterile compression dressing is applied. Portable chest x-ray shows no pneumothorax. Pt is given instructions in wound care, activity, medications, and warning signs: SOB, increasing in pain, chest pain, redness or temperature- if these occur, come to ED. The patient is brought to the procedure room and placed in the supine position. Placement chosen on top in the right upper quadrant. A time-out is done. Ultrasound is used to localize the pocket. The area is prepped and draped in the usual sterile fashion using a ChloraPrep scrub solution. 20 cc's of 1% Lidocaine with epinephrine is used for local anesthetization. The abdomen is punctured and the catheter is inserted. 2.7 liters of light yellow fluid is evacuated today. The catheter is removed. Pressure dressing is applied. The patient tolerated the procedure well without complication.
--- NOTE | 2020-11-17 11:43 | W.PM.DSUDISC ---
Discharge Plan Disposition Patient Disposition: HOME Condition: Good Discharge Details Attending Provider: Hazel Lindsey Primary Care Provider: Dillon Muller Home Meds and New Rx's Prescriptions: Continued sofosbuvir-velpatasvir [Epclusa] 400-100 mg tablet 1 tab PO DAILY 84 Days Qty: 60 RF: 0 metoprolol tartrate 25 mg tablet 50 mg PO TID RF: 0 magnesium oxide 400 mg magnesium tablet 400 mg PO DAILY Qty: 90 RF: 3 torsemide 20 mg tablet 40 mg PO DAILY RF: 0 lactulose 20 gram/30 mL solution 20 g PO TID PRNRF: 0 spironolactone 50 mg tablet 100 mg PO DAILY RF: 0 nitroglycerin 0.4 mg Tablet, Sublingual 0.4 mg SUBLINGUAL Q5M PRNRF: 0 Xifaxan 550 mg tablet 550 mg PO BID RF: 0 Discharge Instructions Additional Instructions: -sign up for covid vaccine (your age group starts next week) -high protein diet -limit fluids -labs look good today -potassium: 3.5 today Activity:: no lifting over 10#'s or strenuous activity x 24hrs Remove Dressings/Wound Care:: 24 hours Shower/Bathe:: 24 hours Diet:: Low Sodium Discharge Orders Discharge Orders: Discharge Order (Routine); Ordered 11/17/20 Ordered By: Hazel Lindsey DS: Diagnosis Discharge Diagnosis (1) Hypokalemia due to excessive renal loss of potassium: Status: Acute (2) Cirrhosis of liver with ascites: Status: Acute (3) Cardiomyopathy: Status: Active (4) Pleural effusion: Status: Active
[2020-11-17 11:48] VITALS: BP 113/72; PULSE 83; RESP 16; TEMP 36.2; O2SAT 98
[2020-11-17] MEDS: Normal Saline Flush 10 ML SYR IVP (12:17)
[2020-11-17] MEDS: ALBUMIN HUMAN 25 GM/100 ML BTL IV ×2 (13:27→13:54)
== END 2020-11-17 14:43 | disposition home or self-care (01) ==
PROVIDERS: PCP Family Medicine; Visit Provider Surgery
PROC: (CPT 32554; principal; 2020-11-17 12:15)
PROC: 0W9G3ZZ Drainage of Peritoneal Cavity, Percutaneous Approach (ICD-10-PCS; CPT 49082; 2020-11-17 12:15)
DX: J90 Pleural effusion, not elsewhere classified (principal); K74.60 Unspecified cirrhosis of liver
CPT/HCPCS: 32555; 36415; 80053; 96365; 71045; 71046; 82140; 85025; 86140

== ENCOUNTER 2020-11-17 13:55 | Outpatient (CLI) | payer MEDICARE, MEDICAID, SELFPAY ==
[2020-11-17 11:34] LABS: Abs Immature Grans 0.03 10^3/uL (0.0-0.06); Absolute Basophil Count 0.08 10^3/uL (0.0-0.2); Absolute Eosinophil Count 0.31 10^3/uL (0.0-0.7); Absolute Lymphocyte Count 1.38 10^3/uL (1.2-3.4); Absolute Monocyte Count 0.81 10^3/uL (0.1-0.8); Absolute Neutrophil Count 2.84 10^3/uL (1.2-6.7); Basophils % 1.5; Eosinophils % 5.7; HCT 32.6 % (36.0-46.0); HGB 10.8 g/dL (11.2-15.7); Immature Grans % 0.6; Lymphocytes % 25.3; MCH 31.7 pg (27.0-33.0); MCHC 33.1 % (32.0-36.0); MCV 95.6 fL (80-95); Monocytes % 14.9; Nucleated RBC 0 %; Platelet Count 121 10^3/uL (130-400); RBC 3.41 10^6/uL (3.93-5.22); RDW 16.8 % (11.7-14.6); RDW-SD 58.5 fL; WBC 5.45 10^3/uL (4.4-10.8)
[2020-11-17 11:43] LABS: Ammonia 114 umol/L (11-32)
[2020-11-17 11:45] LABS: ALT 29 U/L (14-59); AST 30 U/L (15-37); Albumin 3.3 g/dL (3.4-5.0); Alkaline Phosphatase 188 U/L (46-116); Anion Gap 7.8 mmol/L (3-11); BUN 40 mg/dL (7-18); Bilirubin, Total 2.2 mg/dL (0.2-1.0); CO2 27.2 mmol/L (21.0-32.0); CREATININE 1.8 mg/dL (0.55-1.02); Calcium 8.5 mg/dL (8.5-10.1); Chloride 104 mmol/L (98-107); Estimated GFR 29.43 (mL/min/1.73m2); Glucose 75 mg/dL (74-106); Potassium 3.5 mmol/L (3.5-5.1); Sodium 139 mmol/L (136-145); Total Protein 6.5 g/dL (6.4-8.2)
[2020-11-17 12:19] LABS: C-Reactive Protein 0.67 mg/dL (0.0-0.3)
== END 2020-11-17 13:56 | disposition home or self-care (01) ==
LOC: LBO 11-20 13:55
PROVIDERS: Surgery; PCP Family Medicine; Visit Provider Internal Medicine Gastroenterology
DX: B19.20 Unspecified viral hepatitis C without hepatic coma (principal); K74.69 Other cirrhosis of liver
CPT/HCPCS: 36415; 80053; 82140; 85025; 86140

== ENCOUNTER 2020-11-24 11:00 | Day surgery (SDC) | payer MEDICARE, MEDICAID, SELFPAY ==
--- NOTE | 2020-11-24 | DI.RAD_ITS ---
EXAM: XR PORTABLE CHEST AP CLINICAL HISTORY: procedure TECHNIQUE: 2D digital imaging was performed. COMPARISON: CR XR PORTABLE CHEST AP from 11/17/2020 CR XR CHEST 2V PA LATERAL from 11/24/2020 FINDINGS: MEDIASTINUM: Normal. HEART: Normal. PULMONARY VASCULATURE: Normal. LUNGS: Clear. PLEURAL SPACE: There has been decrease in size of the right pleural effusion but a small pleural effu anisha persists. No pneumothorax is identified. BONE:Within normal limits for the patient's age. OTHER FINDINGS:Normal. IMPRESSION: Small persistent right pleural effusion. No pneumothorax. DATA REPOSITORY: RADIATION DOSE DELIVERED:
--- NOTE | 2020-11-24 07:15 | DI.RAD_ITS ---
EXAM: XR CHEST 2V PA LATERAL CLINICAL HISTORY: f/u pleural effusion,J90, PRE THORACENTESIS TECHNIQUE: 2D digital imaging was performed. COMPARISON: CR XR PORTABLE CHEST AP from 11/17/2020 CR XR CHEST 2V PA LATERAL from 11/17/2020 FINDINGS: MEDIASTINUM: Normal. HEART: Normal. PULMONARY VASCULATURE: Normal. LUNGS: Linear atelectasis in the right mid lung. PLEURAL SPACE: There has been a reaccumulation of a small to moderate size right pleural effusion. N o pneumothorax. No left pleural effusion. BONE:Within normal limits for the patient's age. Right convex thoracic scoliosis. OTHER FINDINGS:Normal. IMPRESSION: Small to moderate right pleural effusion. DATA REPOSITORY: RADIATION DOSE DELIVERED:
[2020-11-24 10:50] VITALS: BP 117/79; PULSE 91; RESP 18; TEMP 36.2; O2SAT 97
--- NOTE | 2020-11-24 12:12 | ROE_ITS ---
Documented by User: KLEVER Bianchi 11/24/20 12:15 Date of service: 11/24/20 Time of Service: 12:12 Operative Note Operative Note DATE OF PROCEDURE: 11/24/20 PRE-OP DIAGNOSIS: Cirrhosis/SOB POST-OP DIAGNOSIS: same PROCEDURE: PROCEDURE: THORACENTESIS PROCEDURE: Pt is here today for thoracentesis for symptoms of shortness of breath. Chest x-ray was reviewed prior to beginning the procedure. Informed consent was obtained explaining risks and benefits of the procedure, including but not limited to bleeding, infection, pneumothorax, recurrence, complications of anesthesia, and other unforetold complications. The patient is brought to the procedure room and placed in the seated position. Ultrasound is used to localize the pocket on the right chest. The area is marked and then prepped and draped in the usual sterile fashion using a ChloraPrep scrub solution. 5 cc's of 1% Lidocaine is used to anesthetize the T10 interspace. The small chai is made with a #11 blade. The needle and catheter is then inserted over the top of the rib, aspirating as it is inserted. The needle is then removed. The catheter is then hooked up to the Vacutainer system and no further fluid was evacuated. A total of 10cc's of straw-colored fluid is evacuated. The catheter is removed; 3-0 Prolene suture placed for wound closure, pressure is held. Sterile compression dressing is applied. Portable chest x-ray shows no pneumothorax. PARACENTESIS: The patient is brought to the procedure room and placed in the supine position. Placement chosen on top in the right upper quadrant. A time- out is done. Ultrasound is used to localize the pocket. The area is prepped and draped in the usual sterile fashion using a ChloraPrep scrub solution. 5 cc's of 1% Lidocaine with epinephrine is used for local anesthetization. The abdomen is punctured and the catheter is inserted. 3150 cc's of light yellow fluid is evacuated today. The catheter is removed. 3-0 Prolene, simple suture placed for wound closure. Pressure dressing is applied. The patient tolerated the procedure well without complication. SURGEON: Hazel Lindsey REPAIRER TYPEWRITER: Manuela Kessler ANESTHESIA TYPE: Local By Surgeon Refer to Anesthesia Record ESTIMATED BLOOD LOSS: 2 PATHOLOGY: none sent COMPLICATIONS: None Patient was transported to: same day Patient's condition: stable Documented by User: Hazel Lindsey DO 11/24/20 12:42
[2020-11-24] MEDS: Normal Saline Flush 10 ML SYR IV (12:19)
[2020-11-24] MEDS: ALBUMIN HUMAN 25 GM/100 ML BTL IV ×2 (12:20→12:42)
--- NOTE | 2020-11-24 12:42 | W.PM.DSUDISC ---
Discharge Plan Disposition Patient Disposition: HOME Condition: Good Discharge Details Reason For Visit: paracentisis Attending Provider: Hazel Lindsey Primary Care Provider: Dillon Muller Home Meds and New Rx's Prescriptions: No Action sofosbuvir-velpatasvir [Epclusa] 400-100 mg tablet 1 tab PO DAILY 84 Days Qty: 60 RF: 0 metoprolol tartrate 25 mg tablet 50 mg PO TID RF: 0 magnesium oxide 400 mg magnesium tablet 400 mg PO DAILY Qty: 90 RF: 3 torsemide 20 mg tablet 40 mg PO DAILY RF: 0 lactulose 20 gram/30 mL solution 20 g PO TID PRNRF: 0 spironolactone 50 mg tablet 100 mg PO DAILY RF: 0 nitroglycerin 0.4 mg Tablet, Sublingual 0.4 mg SUBLINGUAL Q5M PRNRF: 0 Xifaxan 550 mg tablet 550 mg PO BID RF: 0 Discharge Instructions Additional Instructions: -No lifting over 20 pounds or strenuous activity x24 hours. -repeat procedure on December 08 -Get your Covid vaccine! Activity:: See above Remove Dressings/Wound Care:: 24 hours Shower/Bathe:: 24 hours Diet:: high protein Discharge Orders Discharge Orders: Discharge Order (Routine); Ordered 11/24/20 Ordered By: Hazel Lindsey DS: Diagnosis Discharge Diagnosis (1) Hypokalemia due to excessive renal loss of potassium: Status: Acute (2) Cirrhosis of liver with ascites: Status: Acute (3) Cardiomyopathy: Status: Active (4) Congestive heart failure: Status: Active (5) Pleural effusion: Status: Active (6) Tachycardia: Status: Active (7) Atrial fibrillation with controlled ventricular rate: Status: Acute (8) Advanced hepatic cirrhosis: Status: Chronic
[2020-11-24 13:03] VITALS: BP 112/58; PULSE 97; RESP 18; TEMP 36.4; O2SAT 94
== END 2020-11-24 13:31 | disposition home or self-care (01) ==
LOC: SUR 13:09
PROVIDERS: PCP Family Medicine; Visit Provider Surgery
PROC: (CPT 32554; principal; 2020-11-24 12:00)
PROC: 0W9G3ZZ Drainage of Peritoneal Cavity, Percutaneous Approach (ICD-10-PCS; CPT 49082; 2020-11-24 12:00)
DX: J90 Pleural effusion, not elsewhere classified (principal); K74.60 Unspecified cirrhosis of liver; I48.91 Unspecified atrial fibrillation
CPT/HCPCS: 32555; 96365; 71045; 71046

== ENCOUNTER 2020-12-08 03:43 | Outpatient (CLI) | payer MEDICARE, MEDICAID, SELFPAY ==
[2020-12-08 12:31] LABS: Abs Immature Grans 0.02 10^3/uL (0.0-0.06); Absolute Basophil Count 0.07 10^3/uL (0.0-0.2); Absolute Neutrophil Count 3.04 10^3/uL (1.2-6.7); Basophils % 1.2; Eosinophils % 3.5; HCT 32.7 % (36.0-46.0); HGB 10.7 g/dL (11.2-15.7); Immature Grans % 0.3; Lymphocytes % 29.7; MCH 31.6 pg (27.0-33.0); MCHC 32.7 % (32.0-36.0); MCV 96.5 fL (80-95); Monocytes % 12.2; Neutrophils % 53.1; Nucleated RBC 0 %; Platelet Count 124 10^3/uL (130-400); RBC 3.39 10^6/uL (3.93-5.22); RDW 17.2 % (11.7-14.6); RDW-SD 60.6 fL; WBC 5.73 10^3/uL (4.4-10.8)
[2020-12-08 14:19] LABS: Iron 160 ug/dL (50-170); Total Iron Binding Capacity 185 ug/dL (250-450); Transferrin Sat 86 % (15-50)
[2020-12-08 14:21] LABS: ALT 31 U/L (14-59); AST 39 U/L (15-37); Albumin 3.4 g/dL (3.4-5.0); Alkaline Phosphatase 179 U/L (46-116); Anion Gap 11.6 mmol/L (3-11); BUN 28 mg/dL (7-18); Bilirubin, Total 2.6 mg/dL (0.2-1.0); CO2 25.4 mmol/L (21.0-32.0); CREATININE 1.5 mg/dL (0.55-1.02); Calcium 8.7 mg/dL (8.5-10.1); Chloride 105 mmol/L (98-107); Estimated GFR 36.32 (mL/min/1.73m2); Ferritin 358 ng/mL (8-252); Glucose 71 mg/dL (74-106); Potassium 3.3 mmol/L (3.5-5.1); Sodium 142 mmol/L (136-145); Total Protein 6.6 g/dL (6.4-8.2)
[2020-12-08 14:31] LABS: PHOSPHORUS 3.1 mg/dL (2.6-4.7)
[2020-12-09 10:18] LABS: Parathyroid Hormone,Intact 142 pg/mL (19-88)
== END 2020-12-08 03:44 | disposition home or self-care (01) ==
PROVIDERS: PCP Family Medicine; Visit Provider Internal Medicine Gastroenterology
DX: B19.20 Unspecified viral hepatitis C without hepatic coma (principal); K74.69 Other cirrhosis of liver; N18.4 Chronic kidney disease, stage 4 (severe); D63.1 Anemia in chronic kidney disease
CPT/HCPCS: 36415; 80053; 82728; 83540; 83550; 83970; 84100; 85025

== ENCOUNTER 2020-12-08 12:06 | Day surgery (SDC) | payer MEDICARE, MEDICAID, SELFPAY ==
--- NOTE | 2020-12-08 11:58 | DI.RAD_ITS ---
EXAM: XR CHEST 2V PA LATERAL CLINICAL HISTORY: f/u pleural effusion,PRE THORACENTESIS,J90 TECHNIQUE: 2D digital imaging was performed. COMPARISON: CR XR CHEST 2V PA LATERAL from 11/24/2020 CR XR PORTABLE CHEST AP from 11/24/2020 FINDINGS: MEDIASTINUM: Normal. HEART: Normal. PULMONARY VASCULATURE: Normal. LUNGS: Clear. PLEURAL SPACE: Since the prior examination there is been reaccumulation of the right pleural effusion which is moderate. No left pleural effusion. No pneumothorax. BONE:Stable right convex thoracic scoliosis. OTHER FINDINGS:Normal. IMPRESSION: Reaccumulation of the right pleural effusion which is now moderate. DATA REPOSITORY: RADIATION DOSE DELIVERED:
[2020-12-08 12:28] VITALS: BP 121/82; PULSE 70; RESP 18; TEMP 36.7; O2SAT 97
--- NOTE | 2020-12-08 13:27 | W.PM.DSUDISC ---
Discharge Plan Disposition Patient Disposition: HOME Condition: Improving Discharge Details Reason For Visit: fluid removal from abdomen Attending Provider: Hazel Lindsey Primary Care Provider: Dillon Muller Home Meds and New Rx's Prescriptions: No Action sofosbuvir-velpatasvir [Epclusa] 400-100 mg tablet 1 tab PO DAILY 84 Days Qty: 60 RF: 0 metoprolol tartrate 25 mg tablet 50 mg PO TID RF: 0 magnesium oxide 400 mg magnesium tablet 400 mg PO DAILY Qty: 90 RF: 3 torsemide 20 mg tablet 40 mg PO DAILY RF: 0 lactulose 20 gram/30 mL solution 20 g PO TID PRNRF: 0 spironolactone 50 mg tablet 100 mg PO DAILY RF: 0 nitroglycerin 0.4 mg Tablet, Sublingual 0.4 mg SUBLINGUAL Q5M PRNRF: 0 Xifaxan 550 mg tablet 550 mg PO BID RF: 0 Discharge Instructions Additional Instructions: F/u w/ Dr. Ayleen figueroa scheduled F/u in Surgery clinic for surture removal 12/17 11:30 w/ June ERNST F/u in 12/22 in surgery for repeat labs and paracentisis Activity:: Activity as Tolerated Remove Dressings/Wound Care:: 24 hours Shower/Bathe:: 24 hours Diet:: high protein/fluid restriction DS: Diagnosis Discharge Diagnosis (1) Hypokalemia due to excessive renal loss of potassium: Status: Acute (2) Cirrhosis of liver with ascites: Status: Acute (3) Viral hepatitis C: Status: Active (4) Atrial fibrillation with controlled ventricular rate: Status: Acute (5) CKD (chronic kidney disease) stage 4, GFR 15-29 ml/min: Status: Acute (6) Advanced hepatic cirrhosis: Status: Chronic
--- NOTE | 2020-12-08 13:31 | ROE_ITS ---
Documented by User: KLEVER Bianchi 12/08/20 13:33 Date of service: 12/08/20 Time of Service: 13:31 Operative Note Operative Note DATE OF PROCEDURE: 12/08/20 PRE-OP DIAGNOSIS: Cirrhosis POST-OP DIAGNOSIS: same PROCEDURE: PARACENTESIS: The patient is brought to the procedure room and placed in the supine position. Placement chosen on top in the right upper quadrant. A time-out is done. Ultrasound is used to localize the pocket. The area is prepped and draped in the usual sterile fashion using a ChloraPrep scrub solution. 10 cc's of 1% Lidocaine with epinephrine is used for local anesthetization. The abdomen is punctured and the catheter is inserted. 574 cc's of light yellow fluid is evacuated today. The catheter is removed. 2-0 Prolene, simple suture placed for wound closure. Pressure dressing is applied. The patient tolerated the procedure well without complication. SURGEON: Hazel Lindsey BACK PANEL PADDER: Manuela Kessler BACK PANEL PADDER: Laura Issa ANESTHESIA TYPE: Local By Surgeon Refer to Anesthesia Record ESTIMATED BLOOD LOSS: 0 PATHOLOGY: none sent COMPLICATIONS: None Patient was transported to: same day Patient's condition: stable Documented by User: Hazel Lindsey DO 12/13/20 21:39
[2020-12-08] MEDS: ALBUMIN HUMAN 25 GM/100 ML BTL IV ×2 (13:37→14:06)
[2020-12-08 13:56] LABS: Bilirubin Negative (Negative); Blood Negative (Negative); Clarity Clear (Clear); Glucose Negative (Negative); Ketones Negative (Negative); Leukocyte Esterase Negative (Negative); Nitrite Negative (Negative); Specific Gravity 1.015 (1.005-1.025); Urobilinogen 0.2 EU/dL (Up TO 0.2); pH 6.5 (5-8)
[2020-12-08 14:05] VITALS: BP 115/74; PULSE 91; RESP 16; TEMP 36.3; O2SAT 98
[2020-12-08] MEDS: Normal Saline Flush 10 ML SYR IV (14:06)
== END 2020-12-08 14:46 | disposition home or self-care (01) ==
PROVIDERS: Internal Medicine Nephrology; PCP Family Medicine; Visit Provider Surgery
PROC: 0W9G3ZZ Drainage of Peritoneal Cavity, Percutaneous Approach (ICD-10-PCS; CPT 49082; 2020-12-08 12:45)
DX: K74.60 Unspecified cirrhosis of liver (principal); R18.8 Other ascites
CPT/HCPCS: 49083; 36415; 80053; 96365; 71046; 81003; 82728; 83540; 83550; 83970; 84100; 85025

== ENCOUNTER → 2020-12-17 11:27 | Outpatient (BNVA) | payer MEDICARE, MEDICAID, SELFPAY | PROVIDERS: PCP Family Medicine; Referring Provider Family Medicine; Visit Provider Physical Therapy Assistant | DX: Z48.02 Encounter for removal of sutures (principal) ==

== ENCOUNTER 2020-12-22 04:10 | Outpatient (CLI) | payer MEDICARE, SELFPAY ==
[2020-12-22 11:24] LABS: Abs Immature Grans 0.02 10^3/uL (0.0-0.06); Absolute Basophil Count 0.07 10^3/uL (0.0-0.2); Absolute Eosinophil Count 0.14 10^3/uL (0.0-0.7); Absolute Monocyte Count 0.83 10^3/uL (0.1-0.8); Absolute Neutrophil Count 2.59 10^3/uL (1.2-6.7); Basophils % 1.4; Eosinophils % 2.7; HCT 34.8 % (36.0-46.0); HGB 11.3 g/dL (11.2-15.7); Immature Grans % 0.4; Lymphocytes % 29.1; MCH 31.6 pg (27.0-33.0); MCHC 32.5 % (32.0-36.0); MCV 97.2 fL (80-95); Monocytes % 16.1; Neutrophils % 50.3; Nucleated RBC 0 %; Platelet Count 126 10^3/uL (130-400); RBC 3.58 10^6/uL (3.93-5.22); RDW 16.8 % (11.7-14.6); RDW-SD 60.2 fL; WBC 5.15 10^3/uL (4.4-10.8)
[2020-12-22 11:36] LABS: Ammonia 84 umol/L (11-32)
[2020-12-22 12:17] LABS: ALT 35 U/L (14-59); AST 50 U/L (15-37); Albumin 3.4 g/dL (3.4-5.0); Alkaline Phosphatase 187 U/L (46-116); Anion Gap 8.2 mmol/L (3-11); BUN 27 mg/dL (7-18); Bilirubin, Total 2.9 mg/dL (0.2-1.0); C-Reactive Protein 1.24 mg/dL (0.0-0.3); CO2 26.8 mmol/L (21.0-32.0); CREATININE 1.3 mg/dL (0.55-1.02); Calcium 8.7 mg/dL (8.5-10.1); Chloride 103 mmol/L (98-107); Estimated GFR 42.85 (mL/min/1.73m2); Glucose 106 mg/dL (74-106); Potassium 4.4 mmol/L (3.5-5.1); Sodium 138 mmol/L (136-145); Total Protein 6.8 g/dL (6.4-8.2)
== END 2020-12-22 04:11 | disposition home or self-care (01) ==
LOC: LBO 04:10
PROVIDERS: PCP Family Medicine; Visit Provider Surgery
DX: J90 Pleural effusion, not elsewhere classified (principal); K74.69 Other cirrhosis of liver; B19.20 Unspecified viral hepatitis C without hepatic coma
CPT/HCPCS: 36415; 80053; 82140; 85025; 86140

== ENCOUNTER 2020-12-22 11:34 | Day surgery (SDC) | payer MEDICARE, MEDICAID, SELFPAY ==
--- NOTE | 2020-12-22 | DI.RAD_ITS ---
EXAM: XR PORTABLE CHEST AP CLINICAL HISTORY: s/p thoro TECHNIQUE: COMPARISON: CR XR CHEST 2V PA LATERAL from 12/22/2020 FINDINGS: Post thoracentesis AP view was obtained. Previously described right pleural effusion is markedly dec reased in size. There is a minimal right pleural effusion noted. There are slight areas of atelecta sis in right mid lung. There is no evidence of pneumothorax. Left lung remains clear and well expan ded. Cardiac size within normal limits. IMPRESSION: Unremarkable chest radiograph post right thoracentesis RADIATION DOSE DELIVERED: Total DLP
--- NOTE | 2020-12-22 08:00 | DI.RAD_ITS ---
EXAM: XR CHEST 2V PA LATERAL CLINICAL HISTORY: f/u pleural effusion,PRE THORACENTESIS,J90 TECHNIQUE: COMPARISON: CR XR CHEST 2V PA LATERAL from 12/08/2020 FINDINGS: Previously described right pleural effusion has increased in size in comparison with prior examinatio n December 08. Left lung remains clear. No left pleural effusion seen. Cardiac size probably within normal limits. IMPRESSION: RADIATION DOSE DELIVERED: Total DLP
[2020-12-22 12:23] VITALS: BP 125/84; PULSE 118; RESP 20; TEMP 36.1; O2SAT 97
--- NOTE | 2020-12-22 15:26 | W.PM.OP ---
Documented by User: KLEVER Bianchi 12/22/20 15:30 Date of service: 12/22/20 Time of Service: 15:27 Operative Note Operative Note DATE OF PROCEDURE: 12/22/20 PRE-OP DIAGNOSIS: Cirrhosis/SOB POST-OP DIAGNOSIS: same PROCEDURE: THORACENTESIS PROCEDURE: Pt is here today for thoracentesis for symptoms of shortness of breath. Chest x-ray was reviewed prior to beginning the procedure. Informed consent was obtained explaining risks and benefits of the procedure, including but not limited to bleeding, infection, pneumothorax, recurrence, complications of anesthesia, and other unforetold complications. The patient is brought to the procedure room and placed in the seated position. Ultrasound is used to localize the pocket on the right chest. The area is marked and then prepped and draped in the usual sterile fashion using a ChloraPrep scrub solution. 5 cc's of 1% Lidocaine is used to anesthetize the T10 interspace. The small chai is made with a #11 blade. The needle and catheter is then inserted over the top of the rib, aspirating as it is inserted. The needle is then removed. The catheter is then hooked up to the Vacutainer system and no further fluid was evacuated. A total of 2900 cc's of straw-colored fluid is evacuated. The catheter is removed; 3-0 Prolene suture placed for wound closure, pressure is held. Sterile compression dressing is applied. Portable chest x-ray shows no pneumothorax. PARACENTESIS: The patient is brought to the procedure room and placed in the supine position. Placement chosen on top in the right upper quadrant. A time-out is done. Ultrasound is used to localize the pocket. The area is prepped and draped in the usual sterile fashion using a ChloraPrep scrub solution. 11 cc's of 1% Lidocaine with epinephrine is used for local anesthetization. The abdomen is punctured and the catheter is inserted. 2600 cc's of light yellow fluid is evacuated today. The catheter is removed. 3-0 Prolene, simple suture placed for wound closure. Pressure dressing is applied. The patient tolerated the procedure well without complication. SURGEON: Hazel Lindsey TELECOMMUNICATIONS SALES REPRESENTATIVE: Manuela Kessler ANESTHESIA TYPE: Local By Surgeon Refer to Anesthesia Record ESTIMATED BLOOD LOSS: 2 COMPLICATIONS: None Patient was transported to: same day Patient's condition: stable Documented by User: Hazel Lindsey DO 12/22/20 22:18 Operative Note Operative Note Procedure Description: Patient seen and examined. Agree with above. I was present throughout the french portion of the procedure. I did personally perform the thoracentesis.
--- NOTE | 2020-12-22 15:38 | W.PM.DSUDISC ---
Discharge Plan Disposition Patient Disposition: HOME Condition: Good Discharge Details Reason For Visit: fluid removal chest and abdomen Attending Provider: Hazel Lindsey Primary Care Provider: Dillon Muller Home Meds and New Rx's Prescriptions: No Action sofosbuvir-velpatasvir [Epclusa] 400-100 mg tablet 1 tab PO DAILY 84 Days Qty: 60 RF: 0 metoprolol tartrate 25 mg tablet 50 mg PO TID RF: 0 magnesium oxide 400 mg magnesium tablet 400 mg PO DAILY Qty: 90 RF: 3 torsemide 20 mg tablet 40 mg PO DAILY RF: 0 lactulose 20 gram/30 mL solution 20 g PO TID PRNRF: 0 spironolactone 50 mg tablet 150 mg PO DAILY RF: 0 nitroglycerin 0.4 mg Tablet, Sublingual 0.4 mg SUBLINGUAL Q5M PRNRF: 0 Xifaxan 550 mg tablet 550 mg PO BID RF: 0 Discharge Instructions Additional Instructions: Repeat procedure January 05 Activity:: Activity as Tolerated Remove Dressings/Wound Care:: 24 hours Shower/Bathe:: 24 hours Diet:: high protein/low sodium DS: Diagnosis Discharge Diagnosis (1) Cirrhosis of liver with ascites: Status: Acute (2) Cardiomyopathy: Status: Active (3) Nephrotic syndrome: Status: Acute (4) Atrial fibrillation with controlled ventricular rate: Status: Acute (5) CKD (chronic kidney disease) stage 4, GFR 15-29 ml/min: Status: Acute
== END 2020-12-22 15:53 | disposition home or self-care (01) ==
PROVIDERS: PCP Family Medicine; Visit Provider Surgery
PROC: 0W9G3ZZ Drainage of Peritoneal Cavity, Percutaneous Approach (ICD-10-PCS; CPT 49082; principal; 2020-12-22 13:45)
PROC: (CPT 32554; 2020-12-22 13:45)
DX: J90 Pleural effusion, not elsewhere classified (principal); R18.8 Other ascites; K74.60 Unspecified cirrhosis of liver
CPT/HCPCS: 32554; 49082; 36415; 80053; 71045; 71046; 82140; 85025; 86140

== ENCOUNTER 2021-01-05 02:44 | Outpatient (CLI) | payer MEDICARE, MEDICAID, SELFPAY ==
[2021-01-05 12:19] LABS: Abs Immature Grans 0.02 10^3/uL (0.0-0.06); Absolute Basophil Count 0.08 10^3/uL (0.0-0.2); Absolute Eosinophil Count 0.15 10^3/uL (0.0-0.7); Absolute Monocyte Count 0.59 10^3/uL (0.1-0.8); Absolute Neutrophil Count 2.73 10^3/uL (1.2-6.7); Basophils % 1.6; Eosinophils % 3.1; HCT 35.7 % (36.0-46.0); HGB 11.7 g/dL (11.2-15.7); Immature Grans % 0.4; Lymphocytes % 26.7; MCH 32.3 pg (27.0-33.0); MCHC 32.8 % (32.0-36.0); MCV 98.6 fL (80-95); MPV 9.6 fL (8.0-11.0); Monocytes % 12.1; Neutrophils % 56.1; Nucleated RBC 0 %; Platelet Count 133 10^3/uL (130-400); RBC 3.62 10^6/uL (3.93-5.22); RDW 16.7 % (11.7-14.6); WBC 4.87 10^3/uL (4.4-10.8)
[2021-01-05 12:42] LABS: ALT 40 U/L (14-59); AST 44 U/L (15-37); Albumin 2.9 g/dL (3.4-5.0); Alkaline Phosphatase 184 U/L (46-116); Ammonia 59 umol/L (11-32); Anion Gap 8.7 mmol/L (3-11); BUN 26 mg/dL (7-18); Bilirubin, Total 2.4 mg/dL (0.2-1.0); C-Reactive Protein 0.93 mg/dL (0.0-0.3); CO2 28.3 mmol/L (21.0-32.0); CREATININE 1.6 mg/dL (0.55-1.02); Calcium 8.6 mg/dL (8.5-10.1); Chloride 104 mmol/L (98-107); Estimated GFR 33.72 (mL/min/1.73m2); Glucose 108 mg/dL (74-106); Potassium 3.3 mmol/L (3.5-5.1); Sodium 141 mmol/L (136-145); Total Protein 6.7 g/dL (6.4-8.2)
== END 2021-01-05 02:45 | disposition home or self-care (01) ==
LOC: LBO 02:44
PROVIDERS: PCP Family Medicine; Visit Provider Surgery
DX: B18.2 Chronic viral hepatitis C (principal); J90 Pleural effusion, not elsewhere classified
CPT/HCPCS: 36415; 80053; 82140; 85025; 86140

== ENCOUNTER 2021-01-05 12:25 | Day surgery (SDC) | payer MEDICARE, MEDICAID, SELFPAY ==
--- NOTE | 2021-01-05 12:28 | DI.RAD_ITS ---
EXAM: XR CHEST 2V PA LATERAL CLINICAL HISTORY: f/u pleural effusion,pre thoracentesis, j90 TECHNIQUE: COMPARISON: CR XR PORTABLE CHEST AP from 12/22/2020 FINDINGS: Today's examination is compared with most recent prior radiograph of December 22 which was a post thora centesis film in a patient with recurrent right pleural effusion. On today's examination there is be en marked interval reaccumulation of the right pleural effusion, to the mid thoracic level. No other significant findings. IMPRESSION: RADIATION DOSE DELIVERED: Total DLP
[2021-01-05 13:31] VITALS: BP 105/72; PULSE 73; RESP 18; TEMP 36.1; O2SAT 100
--- NOTE | 2021-01-05 16:02 | ROE_ITS ---
Date of service: 01/05/21 Time of Service: 16:02 Operative Note Operative Note DATE OF PROCEDURE: 01/05/21 PRE-OP DIAGNOSIS: Cirrhosis/SOB POST-OP DIAGNOSIS: same PROCEDURE: THORACENTESIS PROCEDURE: Pt is here today for thoracentesis for symptoms of shortness of breath. Chest x-ray was reviewed prior to beginning the procedure. Informed consent was obtained explaining risks and benefits of the procedure, including but not limited to bleeding, infection, pneumothorax, recurrence, complications of anesthesia, and other unforetold complications. The patient is brought to the procedure room and placed in the seated position. Ultrasound is used to localize the pocket on the right chest. The area is marked and then prepped and draped in the usual sterile fashion using a ChloraP rep scrub solution. 5 cc's of 1% Lidocaine is used to anesthetize the T10 interspace. The small chai is made with a #11 blade. The needle and catheter is then inserted over the top of the rib, aspirating as it is inserted. The needle is then removed. The catheter is then hooked up to the Vacutainer system and no further fluid was evacuated. A total of 2600 cc's of straw-colored fluid is evacuated. The catheter is removed; 2-0 Prolene suture placed for wound closure, pressure is held. Sterile compression dressing is applied. Portable chest x-ray shows no pneumothorax. PARACENTESIS: The patient is brought to the procedure room and placed in the supine position. Placement chosen on top in the right upper quadrant. A time- out is done. Ultrasound is used to localize the pocket. The area is prepped and draped in the usual sterile fashion using a ChloraPrep scrub solution. 5 cc's of 1% Lidocaine with epinephrine is used for local anesthetization. The abdomen is punctured and the catheter is inserted. 3550 cc's of light yellow fluid is evacuated today. The catheter is removed. 2-0 Prolene, simple suture placed for wound closure. Pressure dressing is applied. The patient tolerated the procedure well without complication. SURGEON: Hazel Lindsey PIN GAME MACHINE INSPECTOR: Manuela Kessler ANESTHESIA TYPE: Local By Surgeon ESTIMATED BLOOD LOSS: 0 PATHOLOGY: none sent COMPLICATIONS: None Patient was transported to: same day Patient's condition: stable
--- NOTE | 2021-01-05 16:02 | W.PM.DSUDISC ---
Discharge Plan Disposition Patient Disposition: HOME Condition: Improving Discharge Details Reason For Visit: fluid removal Attending Provider: Hazel Lindsey Primary Care Provider: Dillon Muller Home Meds and New Rx's Prescriptions: No Action sofosbuvir-velpatasvir [Epclusa] 400-100 mg tablet 1 tab PO DAILY 84 Days Qty: 60 RF: 0 metoprolol tartrate 25 mg tablet 50 mg PO TID RF: 0 magnesium oxide 400 mg magnesium tablet 400 mg PO DAILY Qty: 90 RF: 3 torsemide 20 mg tablet 40 mg PO DAILY RF: 0 lactulose 20 gram/30 mL solution 20 g PO TID PRNRF: 0 spironolactone 50 mg tablet 150 mg PO DAILY RF: 0 nitroglycerin 0.4 mg Tablet, Sublingual 0.4 mg SUBLINGUAL Q5M PRNRF: 0 Xifaxan 550 mg tablet 550 mg PO BID RF: 0 Discharge Instructions Additional Instructions: -no lifting over 20#'s/strenuous activity x 24 hrs -high protein diet -repeat in two weeks time Discharge Orders Discharge Orders: Discharge Order (Routine); Ordered 01/05/21 Ordered By: Hazel Lindsey DS: Diagnosis Discharge Diagnosis (1) Hypokalemia due to excessive renal loss of potassium: Status: Acute (2) Cirrhosis of liver with ascites: Status: Acute (3) Viral hepatitis C: Status: Active (4) Pleural effusion: Status: Active (5) Congestive heart failure: Status: Active (6) Atrial fibrillation with controlled ventricular rate: Status: Acute (7) CKD (chronic kidney disease) stage 4, GFR 15-29 ml/min: Status: Acute
--- NOTE | 2021-01-05 16:15 | DI.RAD_ITS ---
EXAM: XR PORTABLE CHEST AP CLINICAL HISTORY: s/p thorocentisis. TECHNIQUE: 2D digital imaging was performed. COMPARISON: CR XR CHEST 2V PA LATERAL from 01/05/2021 FINDINGS: Heart size unchanged. Mediastinum is not widened. Size of the right pleural effusion is significantly decreased on what most probably a post thoracente sis image. There is no pneumothorax evident. Some platelike atelectasis in the expanding right lung is noted. Left lung remains clear. No pleural fluid on the left side. Bidirectional thoracolumbar scoliosis is again noted. IMPRESSION: No pneumothorax evident on this post thoracentesis image.The size of the right pleural effusion is si gnificantly diminished. DATA REPOSITORY: RADIATION DOSE DELIVERED: All CT scans at this facility use at least one of these dose optimization techniques: automated exposure control; mA and/or kV adjustment per patient size (includes targeted e xams where dose is matched to clinical indication); or iterative reconstruction.
== END 2021-01-05 16:30 | disposition home or self-care (01) ==
PROVIDERS: PCP Family Medicine; Visit Provider Surgery
PROC: 0W9G3ZZ Drainage of Peritoneal Cavity, Percutaneous Approach (ICD-10-PCS; CPT 49082; principal; 2021-01-05 13:15)
PROC: (CPT 32554; 2021-01-05 13:15)
DX: J90 Pleural effusion, not elsewhere classified (principal); K74.60 Unspecified cirrhosis of liver; R18.8 Other ascites; R06.02 Shortness of breath
CPT/HCPCS: 49082; 32554; 36415; 80053; 71045; 71046; 82140; 85025; 86140

== ENCOUNTER → 2021-01-12 12:55 | Outpatient (BNVA) | payer MEDICARE, MEDICAID, SELFPAY | PROVIDERS: PCP Family Medicine; Referring Provider Family Medicine; Visit Provider Physical Therapy Assistant | DX: Z48.02 Encounter for removal of sutures (principal) ==

== ENCOUNTER 2021-01-19 07:04 | Outpatient (CLI) | payer MEDICARE, MEDICAID, SELFPAY ==
[2021-01-19 07:36] LABS: Abs Immature Grans 0.01 10^3/uL (0.0-0.06); Absolute Basophil Count 0.09 10^3/uL (0.0-0.2); Absolute Eosinophil Count 0.36 10^3/uL (0.0-0.7); Absolute Lymphocyte Count 1.44 10^3/uL (1.2-3.4); Absolute Monocyte Count 0.49 10^3/uL (0.1-0.8); Absolute Neutrophil Count 2.44 10^3/uL (1.2-6.7); Basophils % 1.9; Eosinophils % 7.5; HCT 34.7 % (36.0-46.0); HGB 11.8 g/dL (11.2-15.7); Immature Grans % 0.2; Lymphocytes % 29.8; MCH 33.4 pg (27.0-33.0); MCV 98.3 fL (80-95); MPV 10.2 fL (8.0-11.0); Monocytes % 10.1; Neutrophils % 50.5; Nucleated RBC 0 %; Platelet Count 123 10^3/uL (130-400); RBC 3.53 10^6/uL (3.93-5.22); RDW 16.6 % (11.7-14.6); RDW-SD 60.4 fL; WBC 4.83 10^3/uL (4.4-10.8)
[2021-01-19 07:47] LABS: INR 1.3 (0.9-1.1)
[2021-01-19 07:48] LABS: Ammonia 76 umol/L (11-32)
[2021-01-19 07:49] LABS: ALT 39 U/L (14-59); AST 44 U/L (15-37); Albumin 2.5 g/dL (3.4-5.0); Alkaline Phosphatase 197 U/L (46-116); Anion Gap 5.8 mmol/L (3-11); BUN 27 mg/dL (7-18); Bilirubin, Total 2.2 mg/dL (0.2-1.0); C-Reactive Protein 0.92 mg/dL (0.0-0.3); CO2 28.2 mmol/L (21.0-32.0); CREATININE 1.6 mg/dL (0.55-1.02); Calcium 8.1 mg/dL (8.5-10.1); Chloride 104 mmol/L (98-107); Estimated GFR 33.72 (mL/min/1.73m2); Glucose 167 mg/dL (74-106); Potassium 3.5 mmol/L (3.5-5.1); Sodium 138 mmol/L (136-145); Total Protein 6.4 g/dL (6.4-8.2)
[2021-01-19 11:09] LABS: NT-proBNP 2355 pg/mL (<300)
== END 2021-01-19 07:05 | disposition home or self-care (01) ==
LOC: LBO 07:05
PROVIDERS: PCP Family Medicine; Visit Provider Surgery
DX: R06.02 Shortness of breath (principal); K74.60 Unspecified cirrhosis of liver; B18.2 Chronic viral hepatitis C; N18.4 Chronic kidney disease, stage 4 (severe); D63.1 Anemia in chronic kidney disease; J90 Pleural effusion, not elsewhere classified; I48.91 Unspecified atrial fibrillation; Z01.818 Encounter for other preprocedural examination
CPT/HCPCS: 36415; 80053; 82140; 83880; 85025; 85610; 86140

== ENCOUNTER 2021-01-19 07:43 | Day surgery (SDC) | payer MEDICARE, MEDICAID, SELFPAY ==
--- NOTE | 2021-01-19 06:15 | DI.RAD_ITS ---
Exam(s) XR CHEST 2V PA LATERAL EXAM: XR CHEST 2V PA LATERAL CLINICAL HISTORY: ascities/pleural effusion,PRE THORACENTESIS,J90,R18.8 TECHNIQUE: 2D digital imaging was performed. COMPARISON: CR XR PORTABLE CHEST AP from 01/05/2021 CR XR CHEST 2V PA LATERAL from 01/05/2021 FINDINGS: MEDIASTINUM: Normal. HEART: Normal. PULMONARY VASCULATURE: Normal. LUNGS: Clear. PLEURAL SPACE: There is been a reaccumulation of the right pleural effusion which now occupies little more than half of the right hemithorax. No left pleural effusion is seen. No pneumothorax is ident ified. BONE:Within normal limits for the patient's age. There is a mild stable S-type thoracolumbar scolios is. OTHER FINDINGS:Normal. IMPRESSION: Re-accumulation of a large right pleural effusion. DATA REPOSITORY: RADIATION DOSE DELIVERED:
[2021-01-19 07:50] VITALS: BP 116/79; PULSE 75; RESP 18; TEMP 36.2; O2SAT 95
--- NOTE | 2021-01-19 10:47 | ROE_ITS ---
Date of service: 01/19/21 Time of Service: 10:48 Operative Note Operative Note DATE OF PROCEDURE: 01/19/21 PRE-OP DIAGNOSIS: Cirrhosis/SOB POST-OP DIAGNOSIS: same PROCEDURE: THORACENTESIS PROCEDURE: Pt is here today for thoracentesis for symptoms of shortness of breath. Chest x-ray was reviewed prior to beginning the procedure. Informed consent was obtained explaining risks and benefits of the procedure, including but not limited to bleeding, infection, pneumothorax, recurrence, complications of anesthesia, and other unforetold complications. The patient is brought to the procedure room and placed in the seated position. Ultrasound is used to localize the pocket on the right chest. The area is marked and then prepped and draped in the usual sterile fashion using a ChloraP rep scrub solution. 5 cc's of 1% Lidocaine is used to anesthetize the T10 interspace. The small chai is made with a #11 blade. The needle and catheter is then inserted over the top of the rib, aspirating as it is inserted. The needle is then removed. The catheter is then hooked up to the Vacutainer system and no further fluid was evacuated. A total of 7600 cc's of straw-colored fluid is evacuated. The catheter is removed; 2-0 Prolene suture placed for wound closure, pressure is held. Sterile compression dressing is applied. Portable chest x-ray shows no pneumothorax. PARACENTESIS: The patient is brought to the procedure room and placed in the supine position. Placement chosen on top in the right upper quadrant. A time- out is done. Ultrasound is used to localize the pocket. The area is prepped and draped in the usual sterile fashion using a ChloraPrep scrub solution. 6 cc's of 1% Lidocaine with epinephrine is used for local anesthetization. The abdomen is punctured and the catheter is inserted. 4900 cc's of light yellow fluid is evacuated today. The catheter is removed. 2-0 Prolene, simple suture placed for wound closure. Pressure dressing is applied. The patient tolerated the procedure well without complication. SURGEON: Hazel Lindsey JAIL OFFICER: Manuela Kessler ANESTHESIA TYPE: Local By Surgeon Refer to Anesthesia Record PATHOLOGY: none sent COMPLICATIONS: None Patient was transported to: same day Patient's condition: stable
[2021-01-19 10:50] VITALS: BP 130/74; PULSE 79; RESP 16; TEMP 36; O2SAT 97
--- NOTE | 2021-01-19 10:52 | W.PM.DSUDISC ---
Discharge Plan Disposition Condition: Good Discharge Details Reason For Visit: removal fluid from chest/stomach Attending Provider: Hazel Lindsey Primary Care Provider: Dillon Muller [place] Meds and New Rx's Prescriptions: No Action metoprolol tartrate 25 mg tablet 50 mg PO TID RF: 0 magnesium oxide 400 mg magnesium tablet 400 mg PO DAILY Qty: 90 RF: 3 torsemide 20 mg tablet 40 mg PO DAILY RF: 0 lactulose 20 gram/30 mL solution 20 g PO TID PRNRF: 0 spironolactone 50 mg tablet 150 mg PO DAILY RF: 0 nitroglycerin 0.4 mg Tablet, Sublingual 0.4 mg SUBLINGUAL Q5M PRNRF: 0 Xifaxan 550 mg tablet 550 mg PO BID RF: 0 Discharge Instructions Additional Instructions: continue same meds and diet F/u for repeat procedure 02/02 at 1300. echo was ordered adn they will call to schedule Activity:: Activity as Tolerated Remove Dressings/Wound Care:: 24 hours Shower/Bathe:: 24 hours Diet:: high protein DS: Diagnosis Discharge Diagnosis (1) Hypokalemia due to excessive renal loss of potassium: Status: Acute (2) Cirrhosis of liver with ascites: Status: Acute (3) Cardiomyopathy: Status: Active (4) Congestive heart failure: Status: Active (5) Pleural effusion: Status: Active (6) Viral hepatitis C: Status: Active (7) Advanced hepatic cirrhosis: Status: Chronic (8) Atrial fibrillation with controlled ventricular rate: Status: Acute (9) CKD (chronic kidney disease) stage 4, GFR 15-29 ml/min: Status: Acute
--- NOTE | 2021-01-19 11:14 | DI.RAD_ITS ---
Exam(s) XR PORTABLE CHEST AP EXAM: XR PORTABLE CHEST AP CLINICAL HISTORY: s/p thorocentisis TECHNIQUE: 2D digital imaging was performed. COMPARISON: CR XR PORTABLE CHEST AP from 01/05/2021 FINDINGS: MEDIASTINUM: Normal. HEART: Normal. PULMONARY VASCULATURE: Normal. LUNGS: Clear. PLEURAL SPACE: The right pleural effusion is significantly decreased following thoracentesis. There is a tiny residual pleural effusion present. No pneumothorax is present. The left lung shows no pne umothorax or pleural effusion. BONE:Within normal limits for the patient's age. OTHER FINDINGS:Normal. IMPRESSION: No pneumothorax is seen status post thoracentesis. There is a tiny residual right pleural effusion. DATA REPOSITORY: RADIATION DOSE DELIVERED:
[2021-01-19] MEDS: ALBUMIN HUMAN 25 GM/100 ML BTL IV ×2 (11:16→11:38)
== END 2021-01-19 12:23 ==
PROVIDERS: PCP Family Medicine; Visit Provider Surgery
PROC: (CPT 32554; principal; 2021-01-19 09:30)
PROC: 0W9G3ZZ Drainage of Peritoneal Cavity, Percutaneous Approach (ICD-10-PCS; CPT 49082; 2021-01-19 09:30)
DX: R18.8 Other ascites (principal); J90 Pleural effusion, not elsewhere classified; K74.60 Unspecified cirrhosis of liver; R06.02 Shortness of breath
CPT/HCPCS: 49083; 32555; 36415; 80053; 96365; 71045; 71046; 82140; 83880; 85025; 85610; 86140

== ENCOUNTER 2021-01-21 12:38 | Outpatient (RCR) | payer MEDICARE, MEDICAID, SELFPAY ==
--- NOTE | 2021-01-21 15:00 | HOLTER_ITS ---
APPROVED REPORT Conclusion This is a 48-hour monitor order for indication of atrial fibrillation. The patient was in atrial fibrillation for the entirety of the recording with an average heart rate o f 76 bpm. There were 7 episodes of NSVT with the longest lasting 11 beats. There were rare PVCs. There were no pauses greater than 3 seconds and no evidence of high degree heart block. There was 1 patient triggered event associated with atrial fibrillation and a PVC.
== END 2021-02-15 23:59 | disposition home or self-care (01) ==
LOC: RT 12:38
PROVIDERS: PCP Family Medicine; Visit Provider Family Medicine
DX: I48.91 Unspecified atrial fibrillation (principal); I47.2 Ventricular tachycardia; I49.3 Ventricular premature depolarization
CPT/HCPCS: 93227; 93225; 93226

== ENCOUNTER → 2021-01-26 08:19 | Outpatient (BNVA) | payer MEDICARE, MEDICAID, SELFPAY | PROVIDERS: PCP Family Medicine; Referring Provider Family Medicine; Visit Provider Surgery | DX: Z48.02 Encounter for removal of sutures (principal) ==

== ENCOUNTER 2021-02-02 03:26 | Outpatient (CLI) | payer MEDICARE, MEDICAID, SELFPAY ==
[2021-02-02 11:31] LABS: Abs Immature Grans 0.01 10^3/uL (0.0-0.06); Absolute Basophil Count 0.08 10^3/uL (0.0-0.2); Absolute Lymphocyte Count 1.49 10^3/uL (1.2-3.4); Absolute Monocyte Count 0.69 10^3/uL (0.1-0.8); Absolute Neutrophil Count 2.78 10^3/uL (1.2-6.7); Basophils % 1.5; Eosinophils % 3.8; HCT 33.8 % (36.0-46.0); HGB 11.2 g/dL (11.2-15.7); Immature Grans % 0.2; Lymphocytes % 28.4; MCH 32.1 pg (27.0-33.0); MCHC 33.1 % (32.0-36.0); MCV 96.8 fL (80-95); Monocytes % 13.1; Nucleated RBC 0 %; Platelet Count 128 10^3/uL (130-400); RBC 3.49 10^6/uL (3.93-5.22); RDW 16.1 % (11.7-14.6); RDW-SD 57.1 fL; WBC 5.25 10^3/uL (4.4-10.8)
[2021-02-02 11:48] LABS: Ammonia 82 umol/L (11-32)
[2021-02-02 11:49] LABS: ALT 43 U/L (14-59); AST 49 U/L (15-37); Albumin 2.7 g/dL (3.4-5.0); Alkaline Phosphatase 143 U/L (46-116); Anion Gap 6.8 mmol/L (3-11); BUN 27 mg/dL (7-18); Bilirubin, Total 3.1 mg/dL (0.2-1.0); C-Reactive Protein 0.86 mg/dL (0.0-0.3); CO2 27.2 mmol/L (21.0-32.0); CREATININE 1.6 mg/dL (0.55-1.02); Calcium 8.3 mg/dL (8.5-10.1); Chloride 106 mmol/L (98-107); Estimated GFR 33.72 (mL/min/1.73m2); Glucose 149 mg/dL (74-106); Magnesium 1.5 mg/dL (1.8-2.4); Potassium 3.5 mmol/L (3.5-5.1); Sodium 140 mmol/L (136-145); Total Protein 6.4 g/dL (6.4-8.2)
[2021-02-02 11:55] LABS: INR 1.3 (0.9-1.1); Prothrombin Time 13.3 sec (9.3-11.0)
[2021-02-02 12:05] LABS: GGT 51 U/L (5-55)
== END 2021-02-02 03:27 | disposition home or self-care (01) ==
LOC: LBO 03:26
PROVIDERS: PCP Family Medicine; Visit Provider Surgery
DX: B18.2 Chronic viral hepatitis C (principal); K74.60 Unspecified cirrhosis of liver; E87.6 Hypokalemia; N18.4 Chronic kidney disease, stage 4 (severe); D63.1 Anemia in chronic kidney disease; I50.9 Heart failure, unspecified; I48.91 Unspecified atrial fibrillation
CPT/HCPCS: 36415; 80053; 82140; 82977; 83735; 85025; 85610; 86140

== ENCOUNTER 2021-02-02 12:14 | Day surgery (SDC) | payer MEDICARE, MEDICAID, SELFPAY ==
--- NOTE | 2021-02-02 07:30 | DI.RAD_ITS ---
Exam(s) XR CHEST 2V PA LATERAL EXAM: XR CHEST 2V PA LATERAL CLINICAL HISTORY: ascites/pleural effusion,PRE THORACENTESIS TECHNIQUE: 2D digital imaging was performed. COMPARISON: CR XR PORTABLE CHEST AP from 01/19/2021 CR XR CHEST 2V PA LATERAL from 01/19/2021 CR XR PORTABLE CHEST AP from 01/19/2021 CR XR CHEST 2V PA LATERAL from 01/19/2021 FINDINGS: There is been reaccumulation of the right pleural effusion similar to the previous pre thoracentesis film of 19 Jan 2021. Left lung remains clear. The heart size is normal. Scoliosis is again noted. IMPRESSION: Reaccumulation of moderate size right pleural effusion. DATA REPOSITORY: RADIATION DOSE DELIVERED:
[2021-02-02 12:27] VITALS: BP 118/74; PULSE 80; RESP 18; TEMP 36.6; O2SAT 97
[2021-02-02] MEDS: Lidocaine 1% Multi-Dose 50 ML VIAL (13:48)
[2021-02-02 14:01] VITALS: BP 113/66; PULSE 85; RESP 18; TEMP 36.3; O2SAT 100
[2021-02-02] MEDS: Normal Saline Flush 10 ML SYR IVP (14:11)
[2021-02-02] MEDS: ALBUMIN HUMAN 25 GM/100 ML BTL IV ×2 (14:12→14:44)
--- NOTE | 2021-02-02 14:16 | DI.RAD_ITS ---
Exam(s) XR PORTABLE CHEST AP EXAM: XR PORTABLE CHEST AP CLINICAL HISTORY: s/p thoro TECHNIQUE: 2D digital imaging was performed. COMPARISON: CR XR CHEST 2V PA LATERAL from 02/02/2021 FINDINGS: The patient is status post right thoracentesis. A tiny right pleural effusion remains present. No p neumothorax is seen. There is minimal linear atelectasis in the right mid lung field. Heart size is normal. Scoliosis is again noted. IMPRESSION: Status post thoracentesis. No evidence of pneumothorax. DATA REPOSITORY: RADIATION DOSE DELIVERED:
[2021-02-02 14:35] VITALS: BP 109/72; PULSE 81; RESP 18; TEMP 36.1; O2SAT 100
--- NOTE | 2021-02-02 14:46 | W.PM.DSUDISC ---
Discharge Plan Disposition Patient Disposition: HOME Condition: Good Discharge Details Reason For Visit: para/thoro Attending Provider: Hazel Lindsey Primary Care Provider: Dillon Muller Home Meds and New Rx's Prescriptions: No Action metoprolol tartrate 25 mg tablet 50 mg PO TID RF: 0 magnesium oxide 400 mg magnesium tablet 400 mg PO DAILY Qty: 90 RF: 3 lactulose 20 gram/30 mL solution 20 g PO TID PRNRF: 0 torsemide 20 mg tablet 40 mg PO DAILY RF: 0 spironolactone 50 mg tablet 50 mg PO QID RF: 0 nitroglycerin 0.4 mg Tablet, Sublingual 0.4 mg SUBLINGUAL Q5M PRNRF: 0 Xifaxan 550 mg tablet 550 mg PO BID RF: 0 Discharge Instructions Additional Instructions: F/u w/ June in clinic on February 11 11:30 am for suture removal Repeat procedure on 02/16 at 2pm. Please by at the hospital at 1pm for xray adn labs Activity:: Activity as Tolerated Remove Dressings/Wound Care:: 24 hours Shower/Bathe:: 24 hours Diet:: high protein Discharge Orders Discharge Orders: Discharge Order (Routine); Ordered 02/02/21 Ordered By: Hazel Lindsey DS: Diagnosis Discharge Diagnosis (1) Hypokalemia due to excessive renal loss of potassium: Status: Acute (2) Cirrhosis of liver with ascites: Status: Acute (3) Cardiomyopathy: Status: Active (4) Congestive heart failure: Status: Active (5) Pleural effusion: Status: Active (6) Smoking history: Status: Active (7) Advanced hepatic cirrhosis: Status: Chronic (8) Nephrotic syndrome: Status: Acute (9) Atrial fibrillation with controlled ventricular rate: Status: Acute (10) CKD (chronic kidney disease) stage 4, GFR 15-29 ml/min: Status: Acute
--- NOTE | 2021-02-02 14:48 | W.PM.OP ---
Date of service: 02/02/21 Time of Service: 14:49 Operative Note Operative Note DATE OF PROCEDURE: 02/02/21 PRE-OP DIAGNOSIS: para/thoro POST-OP DIAGNOSIS: same SURGEON: Hazel Lindsey ANESTHESIA TYPE: Local By Surgeon Refer to Anesthesia Record ESTIMATED BLOOD LOSS: 1 COMPLICATIONS: None Patient was transported to: same day Patient's condition: stable Procedure Description: Pt is here today for thoracentesis for symptoms of shortness of breath.? Chest x-ray was reviewed prior to beginning the procedure.? Informed consent was obtained explaining risks and benefits of the procedure, including but not limited to bleeding, infection, pneumothorax, recurrence, complications of anesthesia, and other unforetold complications. ? PROCEDURE:? The patient is brought to the procedure room and placed in the seated position.? Ultrasound is used to localize the pocket on the left chest.? The area is marked and then prepped and draped in the usual sterile fashion using a ChloraPrep scrub solution.? 10 cc's of 1% Lidocaine is used to anesthetize the T10 interspace. ? The small chai is made with a #11 blade.? The needle and catheter is then inserted over the top of the rib, aspirating as it is inserted.? The needle is then removed.? The catheter is then hooked up to the Vacutainer system and 2000 cc's of straw-colored fluid is evacuated.? The catheter is removed; pressure is held.? Sterile compression dressing is applied. ? Portable chest x-ray shows no pneumothorax.? ?Pt is given instructions in wound care, activity, medications, and warning signs: SOB, increasing in pain, chest pain, redness or temperature- if these occur, come to ED. The patient is brought to the procedure room and placed in the supine position.? Placement chosen on top in the right upper quadrant.? A time-out is done.? Ultrasound is used to localize the pocket.? The area is prepped and draped in the usual sterile fashion using a ChloraPrep scrub solution.? 20 cc's of 1% Lidocaine with epinephrine is used for local anesthetization.? The abdomen is punctured and the catheter is inserted.? 2900 liters of light yellow fluid is evacuated today.? The catheter is removed.? Pressure dressing is applied.? The patient tolerated the procedure well without complication.
== END 2021-02-02 15:16 | disposition home or self-care (01) ==
PROVIDERS: PCP Family Medicine; Visit Provider Surgery
PROC: (CPT 32554; principal; 2021-02-02 12:00)
PROC: 0W9G3ZZ Drainage of Peritoneal Cavity, Percutaneous Approach (ICD-10-PCS; CPT 49082; 2021-02-02 12:00)
DX: J90 Pleural effusion, not elsewhere classified (principal); K74.60 Unspecified cirrhosis of liver; R18.8 Other ascites; N18.4 Chronic kidney disease, stage 4 (severe)
CPT/HCPCS: 32555; 36415; 80053; 96365; 71045; 71046; 82140; 82977; 83735; 84443; 85025; 85610; 86140

== ENCOUNTER 2021-02-03 01:19 | Outpatient (CLI) | payer MEDICARE, MEDICAID, SELFPAY | END 2021-02-03 01:39 | PROVIDERS: PCP Family Medicine; Visit Provider Surgery | DX: I50.9 Heart failure, unspecified (principal); I08.1 Rheumatic disorders of both mitral and tricuspid valves | CPT/HCPCS: 93306 ==

== ENCOUNTER → 2021-02-11 10:33 | Outpatient (BNVA) | payer MEDICARE, MEDICAID, SELFPAY | PROVIDERS: PCP Family Medicine; Referring Provider Family Medicine; Visit Provider Physical Therapy Assistant | DX: Z48.02 Encounter for removal of sutures (principal) | CPT/HCPCS: 99211 ==

== ENCOUNTER 2021-02-16 03:02 | Outpatient (CLI) | payer MEDICARE, MEDICAID, SELFPAY ==
[2021-02-16 12:44] LABS: Abs Immature Grans 0.01 10^3/uL (0.0-0.06); Absolute Basophil Count 0.06 10^3/uL (0.0-0.2); Absolute Eosinophil Count 0.22 10^3/uL (0.0-0.7); Absolute Lymphocyte Count 1.26 10^3/uL (1.2-3.4); Absolute Monocyte Count 0.83 10^3/uL (0.1-0.8); Absolute Neutrophil Count 2.45 10^3/uL (1.2-6.7); Basophils % 1.2; Eosinophils % 4.6; HCT 34.7 % (36.0-46.0); HGB 11.7 g/dL (11.2-15.7); Immature Grans % 0.2; Lymphocytes % 26.1; MCH 32.7 pg (27.0-33.0); MCHC 33.7 % (32.0-36.0); MCV 96.9 fL (80-95); MPV 9.5 fL (8.0-11.0); Monocytes % 17.2; Neutrophils % 50.7; Nucleated RBC 0 %; Platelet Count 111 10^3/uL (130-400); RBC 3.58 10^6/uL (3.93-5.22); RDW 15.9 % (11.7-14.6); WBC 4.83 10^3/uL (4.4-10.8)
[2021-02-16 12:52] LABS: Ammonia 128 umol/L (11-32)
[2021-02-16 13:14] LABS: ALT 56 U/L (14-59); AST 61 U/L (15-37); Albumin 2.8 g/dL (3.4-5.0); Alkaline Phosphatase 172 U/L (46-116); Anion Gap 8.2 mmol/L (3-11); BUN 35 mg/dL (7-18); Bilirubin, Total 2.7 mg/dL (0.2-1.0); C-Reactive Protein 0.92 mg/dL (0.0-0.3); CO2 28.8 mmol/L (21.0-32.0); CREATININE 1.7 mg/dL (0.55-1.02); Calcium 8.5 mg/dL (8.5-10.1); Chloride 104 mmol/L (98-107); Estimated GFR 31.44 (mL/min/1.73m2); Glucose 95 mg/dL (74-106); NT-proBNP 3066 pg/mL (<300); Potassium 3.6 mmol/L (3.5-5.1); Sodium 141 mmol/L (136-145); Total Protein 6.3 g/dL (6.4-8.2)
[2021-02-16 13:55] LABS: INR 1.3 (0.9-1.1); Prothrombin Time 13.1 sec (9.3-11.0)
== END 2021-02-16 03:03 | disposition home or self-care (01) ==
LOC: LBO 03:03
PROVIDERS: PCP Family Medicine; Visit Provider Surgery
DX: K74.69 Other cirrhosis of liver (principal); R06.02 Shortness of breath; J90 Pleural effusion, not elsewhere classified; B18.2 Chronic viral hepatitis C
CPT/HCPCS: 36415; 80053; 82140; 83880; 85025; 85610; 86140

== ENCOUNTER 2021-02-16 12:49 | Day surgery (SDC) | payer MEDICARE, MEDICAID, SELFPAY ==
--- NOTE | 2021-02-16 08:15 | DI.RAD_ITS ---
Exam(s) XR CHEST 2V PA LATERAL EXAM: XR CHEST 2V PA LATERAL CLINICAL HISTORY: Pleural effusion, Ascites,PRE THORACENTESIS, K74.60,R18.8 TECHNIQUE: COMPARISON: CR XR CHEST 2V PA LATERAL from 02/02/2021 CR XR PORTABLE CHEST AP from 02/02/2021 FINDINGS: PA and lateral views were obtained. Note is again made of the previously noted recurrent right pleur al effusion, this now occupies roughly half of the right thoracic volume. Left lung remains clear an d well expanded. No left pleural effusion seen. IMPRESSION: RADIATION DOSE DELIVERED: Total DLP
[2021-02-16 13:07] VITALS: BP 117/77; PULSE 82; RESP 20; TEMP 36.3; O2SAT 100
[2021-02-16] MEDS: Normal Saline Flush 10 ML SYR (13:55)
[2021-02-16] MEDS: Sodium Bicarbonate 50 MEQ/50 ML VIAL (14:50)
[2021-02-16 15:15] VITALS: BP 118/79; PULSE 101; RESP 18; TEMP 36; O2SAT 94
--- NOTE | 2021-02-16 15:25 | DI.RAD_ITS ---
Exam(s) XR PORTABLE CHEST AP EXAM: XR PORTABLE CHEST AP CLINICAL HISTORY: s/p thorocentisis TECHNIQUE: COMPARISON: CR XR CHEST 2V PA LATERAL from 02/16/2021 FINDINGS: Post thoracentesis film was obtained and shows decreased size of previously noted right pleural effus ion. No pneumothorax identified. Left lung remains clear and well expanded. IMPRESSION: RADIATION DOSE DELIVERED: Total DLP
[2021-02-16] MEDS: ALBUMIN HUMAN 25 GM/100 ML BTL IV ×2 (15:32→15:54)
--- NOTE | 2021-02-16 15:34 | W.PM.OP ---
Date of service: 02/16/21 Time of Service: 15:34 Operative Note Operative Note DATE OF PROCEDURE: 02/16/21 PRE-OP DIAGNOSIS: chronic cirrhosis PROCEDURE: thorocentisis SURGEON: Hazel Lindsey ANESTHESIA TYPE: Local By Surgeon Refer to Anesthesia Record ESTIMATED BLOOD LOSS: 1 Patient was transported to: same day Patient's condition: stable Procedure Description: Operative Note Operative Note Pt is here today for thoracentesis for symptoms of shortness of breath. Chest x-ray was reviewed prior to beginning the procedure. Informed consent was obtained explaining risks and benefits of the procedure, including but not limited to bleeding, infection, pneumothorax, recurrence, complications of anesthesia, and other unforetold complications. PROCEDURE: The patient is brought to the procedure room and placed in the seated position. Ultrasound is used to localize the pocket on the left chest. The area is marked and then prepped and draped in the usual sterile fashion using a ChloraPrep scrub solution. 10 cc's of 1% Lidocaine is used to anesthetize the T10 interspace. The small chai is made with a #11 blade. The needle and catheter is then inserted over the top of the rib, aspirating as it is inserted. The needle is then removed. The catheter is then hooked up to the Vacutainer system and 1000 cc's of straw-colored fluid is evacuated. The catheter is removed; pressure is held. Sterile compression dressing is applied. Portable chest x-ray shows no pneumothorax. Pt is given instructions in wound care, activity, medications, and warning signs: SOB, increasing in pain, chest pain, redness or temperature- if these occur, come to ED.
--- NOTE | 2021-02-16 15:37 | W.PM.OP ---
Date of service: 02/16/21 Time of Service: 15:38 Operative Note Operative Note DATE OF PROCEDURE: 02/16/21 PRE-OP DIAGNOSIS: chronic cirrhosis PROCEDURE: paracentisis SURGEON: Hazel Lindsey ANESTHESIA TYPE: Local By Surgeon Refer to Anesthesia Record ESTIMATED BLOOD LOSS: 1 Patient was transported to: same day Patient's condition: stable Implants: thorocentisis Procedure Description: The patient is brought to the procedure room and placed in the supine position. Placement chosen on top in the right upper quadrant. A time-out is done. Ultrasound is used to localize the pocket. The area is prepped and draped in the usual sterile fashion using a ChloraPrep scrub solution. 20 cc's of 1% Lidocaine with epinephrine is used for local anesthetization. The abdomen is punctured and the catheter is inserted. 2700 liters of light yellow fluid is evacuated today. The catheter is removed. Pressure dressing is applied. The patient tolerated the procedure well without complication.
--- NOTE | 2021-02-16 15:40 | W.PM.DSUDISC ---
Discharge Plan Disposition Patient Disposition: HOME Condition: Stable Discharge Details Reason For Visit: removal fluid Attending Provider: Hazel Lindsey Primary Care Provider: Dillon Muller Home Meds and New Rx's Prescriptions: Discontinued diltiazem HCl 120 mg capsule,extended release 24hr 120 mg PO DAILY RF: 0 No Action metoprolol tartrate 25 mg tablet 50 mg PO BID RF: 0 magnesium oxide 400 mg magnesium tablet 400 mg PO DAILY Qty: 90 RF: 3 lactulose 20 gram/30 mL solution 20 g PO TID PRNRF: 0 spironolactone 50 mg tablet 50 mg PO TID RF: 0 torsemide 20 mg tablet 20 mg PO TID RF: 0 nitroglycerin 0.4 mg Tablet, Sublingual 0.4 mg SUBLINGUAL Q5M PRNRF: 0 Xifaxan 550 mg tablet 550 mg PO BID RF: 0 Discharge Instructions Additional Instructions: Plan for repeat procedure on February 23. My office will call in am to make sure you are scheduled Activity:: rest for 24 hrs Remove Dressings/Wound Care:: 24 hours Shower/Bathe:: 24 hours Diet:: high protein Discharge Orders Discharge Orders: Discharge Order (Routine); Ordered 02/16/21 Ordered By: Hazel Lindsey DS: Diagnosis Discharge Diagnosis (1) Cirrhosis of liver with ascites: Status: Acute (2) Cardiomyopathy: Status: Active (3) Congestive heart failure: Status: Active (4) Pleural effusion: Status: Active (5) Tachycardia: Status: Active (6) Atrial fibrillation with controlled ventricular rate: Status: Acute (7) CKD (chronic kidney disease) stage 4, GFR 15-29 ml/min: Status: Acute (8) Advanced hepatic cirrhosis: Status: Chronic
== END 2021-02-16 16:25 | disposition home or self-care (01) ==
PROVIDERS: PCP Family Medicine; Visit Provider Surgery
PROC: 0W9G3ZZ Drainage of Peritoneal Cavity, Percutaneous Approach (ICD-10-PCS; CPT 49082; principal; 2021-02-16 14:00)
PROC: (CPT 32554; 2021-02-16 14:00)
DX: J90 Pleural effusion, not elsewhere classified (principal); K74.60 Unspecified cirrhosis of liver; R18.8 Other ascites
CPT/HCPCS: 32555; 36415; 80053; 96365; 71045; 71046; 82140; 83880; 85025; 85610; 86140

== ENCOUNTER 2021-02-23 03:51 | Outpatient (CLI) | payer MEDICARE, SELFPAY ==
[2021-02-23 12:43] LABS: Abs Immature Grans 0.02 10^3/uL (0.0-0.06); Absolute Basophil Count 0.05 10^3/uL (0.0-0.2); Absolute Eosinophil Count 0.18 10^3/uL (0.0-0.7); Absolute Lymphocyte Count 1.22 10^3/uL (1.2-3.4); Absolute Neutrophil Count 2.78 10^3/uL (1.2-6.7); Eosinophils % 3.6; HCT 31.1 % (36.0-46.0); HGB 10.3 g/dL (11.2-15.7); Immature Grans % 0.4; Lymphocytes % 24.2; MCH 32.3 pg (27.0-33.0); MCHC 33.1 % (32.0-36.0); MCV 97.5 fL (80-95); MPV 9.9 fL (8.0-11.0); Monocytes % 15.8; Nucleated RBC 0 %; Platelet Count 103 10^3/uL (130-400); RBC 3.19 10^6/uL (3.93-5.22); RDW 15.9 % (11.7-14.6); RDW-SD 56.2 fL; WBC 5.05 10^3/uL (4.4-10.8)
[2021-02-23 12:53] LABS: Ammonia 97 umol/L (11-32); INR 1.4 (0.9-1.1); Prothrombin Time 13.8 sec (9.3-11.0)
[2021-02-23 13:04] LABS: ALT 62 U/L (14-59); AST 74 U/L (15-37); Albumin 2.9 g/dL (3.4-5.0); Alkaline Phosphatase 180 U/L (46-116); Anion Gap 3.9 mmol/L (3-11); BUN 29 mg/dL (7-18); Bilirubin, Total 2.4 mg/dL (0.2-1.0); C-Reactive Protein 0.65 mg/dL (0.0-0.3); CO2 31.1 mmol/L (21.0-32.0); CREATININE 1.7 mg/dL (0.55-1.02); Calcium 8.5 mg/dL (8.5-10.1); Chloride 104 mmol/L (98-107); Estimated GFR 31.44 (mL/min/1.73m2); Glucose 119 mg/dL (74-106); NT-proBNP 2237 pg/mL (<300); Potassium 4.2 mmol/L (3.5-5.1); Sodium 139 mmol/L (136-145); Total Protein 6.3 g/dL (6.4-8.2)
== END 2021-02-23 03:52 | disposition home or self-care (01) ==
LOC: LBO 03:51
PROVIDERS: PCP Family Medicine; Visit Provider Surgery
DX: K74.69 Other cirrhosis of liver (principal); R06.02 Shortness of breath; J90 Pleural effusion, not elsewhere classified; B18.2 Chronic viral hepatitis C
CPT/HCPCS: 36415; 80053; 82140; 83880; 85025; 85610; 86140

== ENCOUNTER 2021-02-23 12:53 | Day surgery (SDC) | payer MEDICARE, MEDICAID, SELFPAY ==
--- NOTE | 2021-02-23 | DI.RAD_ITS ---
Exam(s) XR PORTABLE CHEST AP EXAM: XR PORTABLE CHEST AP CLINICAL HISTORY: s/p thoro TECHNIQUE: 2D digital imaging was performed. COMPARISON: CR XR CHEST 2V PA LATERAL from 02/23/2021 FINDINGS: MEDIASTINUM: Normal. HEART: Normal. PULMONARY VASCULATURE: Normal. LUNGS: Clear. PLEURAL SPACE: There has been significant reduction in the right pleural effusion following thoracent esis. There is a tiny right residual pleural effusion present. No left pleural effusion is seen. T here is no pneumothorax. BONE:Within normal limits for the patient's age. Stable scoliosis of the thoracolumbar spine. OTHER FINDINGS:Normal. IMPRESSION: Significant reduction in the right pleural effusion following thoracentesis. Very small residual rig ht pleural effusion. No pneumothorax. DATA REPOSITORY: RADIATION DOSE DELIVERED:
--- NOTE | 2021-02-23 12:48 | DI.RAD_ITS ---
Exam(s) XR CHEST 2V PA LATERAL EXAM: XR CHEST 2V PA LATERAL CLINICAL HISTORY: pre-op for paracentesis AND THORACENTESIS,PLEURAL EFFUSION,J90,R18.8,ASCITE TECHNIQUE: 2D digital imaging was performed. COMPARISON: CR XR PORTABLE CHEST AP from 02/16/2021 CR XR CHEST 2V PA LATERAL from 02/16/2021 FINDINGS: MEDIASTINUM: Normal. HEART: Normal. PULMONARY VASCULATURE: Normal. LUNGS: Clear. PLEURAL SPACE: There has been interval increase in size of the right pleural effusion which now occup ies approximately a 3rd of the right hemithorax. No pneumothorax. No left pleural effusion. BONE:Within normal limits for the patient's age. Stable thoracolumbar scoliosis. OTHER FINDINGS:Normal. IMPRESSION: Reaccumulation of the right pleural effusion. DATA REPOSITORY: RADIATION DOSE DELIVERED:
[2021-02-23 13:15] VITALS: BP 109/52; PULSE 79; RESP 18; TEMP 36.1; O2SAT 96
[2021-02-23] MEDS: Normal Saline Flush 10 ML SYR ×3 (14:37→17:43)
[2021-02-23] MEDS: Sodium Bicarbonate 50 MEQ/50 ML VIAL (16:30)
[2021-02-23 16:45] VITALS: BP 108/76; PULSE 56; RESP 18; TEMP 36.4; O2SAT 99
[2021-02-23] MEDS: ALBUMIN HUMAN 25 GM/100 ML BTL IV ×2 (16:50→17:18)
--- NOTE | 2021-02-23 17:03 | W.PM.DSUDISC ---
Discharge Plan Disposition Patient Disposition: HOME Condition: Good Discharge Details Reason For Visit: para/thorcentisis Attending Provider: aHzel Lindsey Primary Care Provider: Dillon Muller Home Meds and New Rx's Prescriptions: No Action metoprolol tartrate 25 mg tablet 50 mg PO BID RF: 0 magnesium oxide 400 mg magnesium tablet 400 mg PO DAILY Qty: 90 RF: 3 lactulose 20 gram/30 mL solution 20 g PO TID PRNRF: 0 spironolactone 50 mg tablet 50 mg PO TID RF: 0 torsemide 20 mg tablet 20 mg PO TID RF: 0 nitroglycerin 0.4 mg Tablet, Sublingual 0.4 mg SUBLINGUAL Q5M PRNRF: 0 Xifaxan 550 mg tablet 550 mg PO BID RF: 0 Discharge Instructions Additional Instructions: -Dr. Lindsey's office will call w/ an appointment to have sutures out next week w/ June. -Plan on repeat procedure in two weeks time. My office will arrange Monday. Activity:: Activity as Tolerated Remove Dressings/Wound Care:: 24 hours Shower/Bathe:: 24 hours Diet:: high protein/low salt DS: Diagnosis Discharge Diagnosis (1) Cirrhosis of liver with ascites: Status: Acute (2) Cardiomyopathy: Status: Active (3) Congestive heart failure: Status: Active (4) Pleural effusion: Status: Active (5) Atrial fibrillation with controlled ventricular rate: Status: Acute (6) CKD (chronic kidney disease) stage 4, GFR 15-29 ml/min: Status: Acute
[2021-02-23 17:14] VITALS: BP 105/72; PULSE 67; RESP 16; TEMP 36.3; O2SAT 99
--- NOTE | 2021-02-23 17:25 | DI.VRAD_ITS ---
PROCEDURE INFORMATION: Exam: XR Chest Exam date and time: 02/23/2021 4:40 PM Age: 55 years old Clinical indication: Other: Post thorocentesis TECHNIQUE: Imaging protocol: XR of the chest. Views: 1 view. COMPARISON: CR XR CHEST 2V PA LATERAL 02/23/2021 12:41 PM FINDINGS: Lungs: Unremarkable. No consolidation. Pleural spaces: Minimal fluid or thickened pleura in the right costophrenic angle with significant decrease in the previous moderate to large right pleural effusion. No pneumothorax. Heart/Mediastinum: Unremarkable. No cardiomegaly. Bones/joints: Thoracic curve, convex to the right. IMPRESSION: No pneumothorax status post right thoracentesis. Minimal fluid or thickened pleura remains in the right costophrenic angle. Dictated and Authenticated by: Alicja Arboleda MD. Ordering:JEFFREY Oliva MD
[2021-02-23 17:39] VITALS: BP 105/68; PULSE 54; RESP 17; TEMP 36.3; O2SAT 98
--- NOTE | 2021-02-23 17:55 | NUR.NOTE ---
Nursing Note: [id number] MD contacted via cellphone. Verbal d/c order received. MD was present in Day Surgery when patient discharged unit.
--- NOTE | 2021-02-23 20:51 | W.PM.OP ---
Documented by User: KLEVER Bianchi 02/23/21 20:59 Date of service: 02/23/21 Time of Service: 16:45 Operative Note Operative Note DATE OF PROCEDURE: 02/23/21 PRE-OP DIAGNOSIS: Cirrhosis/SOB POST-OP DIAGNOSIS: same PROCEDURE: THORACENTESIS PROCEDURE: Pt is here today for thoracentesis for symptoms of shortness of breath. Chest x-ray was reviewed prior to beginning the procedure. Informed consent was obtained explaining risks and benefits of the procedure, including but not limited to bleeding, infection, pneumothorax, recurrence, complications of anesthesia, and other unforetold complications. The patient is brought to the procedure room and placed in the seated position. Ultrasound is used to localize the pocket on the right chest. The area is marked and then prepped and draped in the usual sterile fashion using a ChloraPrep scrub solution. 7 cc's of 1% Lidocaine is used to anesthetize the T10 interspace. The small chai is made with a #11 blade. The needle and catheter is then inserted over the top of the rib, aspirating as it is inserted. The needle is then removed. The catheter is then hooked up to the Vacutainer system and no further fluid was evacuated. A total of 2200 cc's of straw-colored fluid is evacuated. The catheter is removed; 2-0 Prolene suture placed for wound closure, pressure is held. Sterile compression dressing is applied. Portable chest x-ray shows no pneumothorax. PARACENTESIS: The patient is brought to the procedure room and placed in the supine position. Placement chosen on top in the right upper quadrant. A time-out is done. Ultrasound is used to localize the pocket. The area is prepped and draped in the usual sterile fashion using a ChloraPrep scrub solution. 5 cc's of 1% Lidocaine with epinephrine is used for local anesthetization. The abdomen is punctured and the catheter is inserted. 1800 cc's of light yellow fluid is evacuated today. The catheter is removed. 2-0 Prolene, simple suture placed for wound closure. Pressure dressing is applied. The patient tolerated the procedure well without complication. SURGEON: Hazel Lindsey METALLURGIST HELPER: Manuela Kessler ANESTHESIA TYPE: Local By Surgeon Refer to Anesthesia Record PATHOLOGY: none sent COMPLICATIONS: None Patient was transported to: same day Patient's condition: stable Documented by User: Hazel Lindsey DO 02/24/21 10:29
== END 2021-02-23 17:50 | disposition home or self-care (01) ==
PROVIDERS: PCP Family Medicine; Visit Provider Surgery
PROC: 0W9G3ZZ Drainage of Peritoneal Cavity, Percutaneous Approach (ICD-10-PCS; CPT 49082; principal; 2021-02-23 15:00)
PROC: (CPT 32554; 2021-02-23 15:00)
DX: J90 Pleural effusion, not elsewhere classified (principal); R18.8 Other ascites
CPT/HCPCS: 49083; 32555; 36415; 80053; 96365; 71045; 71046; 82140; 83880; 85025; 85610; 86140

== ENCOUNTER → 2021-03-02 09:51 | Outpatient (BNVA) | payer MEDICARE, SELFPAY | PROVIDERS: PCP Family Medicine; Referring Provider Family Medicine; Visit Provider Physical Therapy Assistant | DX: Z48.02 Encounter for removal of sutures (principal) ==

== ENCOUNTER 2021-03-09 03:09 | Outpatient (CLI) | payer MEDICARE, SELFPAY ==
[2021-03-09 11:37] LABS: Abs Immature Grans 0.02 10^3/uL (0.0-0.06); Absolute Basophil Count 0.08 10^3/uL (0.0-0.2); Absolute Eosinophil Count 0.16 10^3/uL (0.0-0.7); Absolute Lymphocyte Count 1.53 10^3/uL (1.2-3.4); Absolute Monocyte Count 0.91 10^3/uL (0.1-0.8); Absolute Neutrophil Count 2.48 10^3/uL (1.2-6.7); Basophils % 1.5; Eosinophils % 3.1; HCT 35.4 % (36.0-46.0); HGB 11.8 g/dL (11.2-15.7); Immature Grans % 0.4; Lymphocytes % 29.5; MCH 32.8 pg (27.0-33.0); MCHC 33.3 % (32.0-36.0); MCV 98.3 fL (80-95); Monocytes % 17.6; Neutrophils % 47.9; Nucleated RBC 0 %; Platelet Count 128 10^3/uL (130-400); RDW 16.3 % (11.7-14.6); RDW-SD 59.5 fL; WBC 5.18 10^3/uL (4.4-10.8)
[2021-03-09 11:47] LABS: Ammonia 90 umol/L (11-32)
[2021-03-09 11:49] LABS: INR 1.3 (0.9-1.1); Prothrombin Time 13.1 sec (9.3-11.0)
[2021-03-09 11:51] LABS: ALT 100 U/L (14-59); AST 116 U/L (15-37); Albumin 3.1 g/dL (3.4-5.0); Alkaline Phosphatase 201 U/L (46-116); BUN 34 mg/dL (7-18); Bilirubin, Total 2.4 mg/dL (0.2-1.0); CREATININE 1.8 mg/dL (0.55-1.02); Calcium 8.9 mg/dL (8.5-10.1); Chloride 103 mmol/L (98-107); Estimated GFR 29.43 (mL/min/1.73m2); Glucose 90 mg/dL (74-106); Potassium 4.2 mmol/L (3.5-5.1); Sodium 139 mmol/L (136-145)
[2021-03-09 11:56] LABS: C-Reactive Protein 0.67 mg/dL (0.0-0.3); NT-proBNP 1691 pg/mL (<300)
== END 2021-03-09 03:10 | disposition home or self-care (01) ==
LOC: LBO 03:09
PROVIDERS: Internal Medicine Gastroenterology; PCP Family Medicine; Visit Provider Surgery
DX: B18.2 Chronic viral hepatitis C (principal); K74.69 Other cirrhosis of liver; J90 Pleural effusion, not elsewhere classified; R18.8 Other ascites; R06.02 Shortness of breath
CPT/HCPCS: 36415; 80053; 82140; 83735; 83880; 85025; 85610; 86140

== ENCOUNTER 2021-03-09 11:49 | Day surgery (SDC) | payer MEDICARE, MEDICAID, SELFPAY ==
--- NOTE | 2021-03-09 08:15 | DI.RAD_ITS ---
Exam(s) XR CHEST 2V PA LATERAL EXAM: XR CHEST 2V PA LATERAL CLINICAL HISTORY: pre-op for paracentesis,PLEURAL EFFUSION,J90 TECHNIQUE: COMPARISON: CR XR CHEST 2V PA LATERAL from 02/23/2021 CR,XR XR PORTABLE CHEST AP from 02/23/2021 CR XR CHEST 2V PA LATERAL from 02/23/2021 FINDINGS: The heart is mildly enlarged. The previously noted recurrent right pleural effusion is again seen, s imilar to appearance on prior examination February 23 or possibly slightly smaller. No left pleural eff usion seen. Lungs are clear. IMPRESSION: RADIATION DOSE DELIVERED: Total DLP
[2021-03-09 11:55] VITALS: BP 120/71; PULSE 65; RESP 16; TEMP 36.3; O2SAT 100
[2021-03-09] MEDS: Normal Saline Flush 10 ML SYR (12:15)
[2021-03-09 14:05] VITALS: BP 108/60; PULSE 65; RESP 18; TEMP 36.3; O2SAT 100
--- NOTE | 2021-03-09 14:12 | W.PM.OP ---
Date of service: 03/09/21 Time of Service: 14:12 Operative Note Operative Note DATE OF PROCEDURE: 03/09/21 PRE-OP DIAGNOSIS: cirrhosis POST-OP DIAGNOSIS: same PROCEDURE: thorocentisis/paracentisi SURGEON: Hazel Lindsey ANESTHESIA TYPE: Local By Surgeon Refer to Anesthesia Record ESTIMATED BLOOD LOSS: 1 PATHOLOGY: none sent COMPLICATIONS: None Patient was transported to: same day Patient's condition: stable Procedure Description: Pt is here today for thoracentesis for symptoms of shortness of breath. Chest x-ray was reviewed prior to beginning the procedure. Informed consent was obtained explaining risks and benefits of the procedure, including but not limited to bleeding, infection, pneumothorax, injury to the bowel recurrence, complications of anesthesia, and other unforetold complications. Thorocentisis The patient is brought to the procedure room and placed in the seated position. Ultrasound is used to localize the pocket on the left chest. The area is marked and then prepped and draped in the usual sterile fashion using a ChloraPrep scrub solution. 10 cc's of 1% Lidocaine is used to anesthetize the T10 interspace. The small chai is made with a #11 blade. The needle and catheter is then inserted over the top of the rib, aspirating as it is inserted. The needle is then removed. The catheter is then hooked up to the Vacutainer system and 2000 cc's of straw-colored fluid is evacuated. The catheter is removed; pressure is held. Sterile compression dressing is applied. Paracentisis The patient is brought to the procedure room and placed in the supine position. Placement chosen on top in the right upper quadrant. A time-out is done. Ultrasound is used to localize the pocket. The area is prepped and draped in the usual sterile fashion using a ChloraPrep scrub solution. 20 cc's of 1% Lidocaine with epinephrine is used for local anesthetization. The abdomen is punctured and the catheter is inserted. 575 liters of light yellow fluid is evacuated today. The catheter is removed. Pressure dressing is applied. The patient tolerated the procedure well without complication. Portable chest x-ray shows no pneumothorax. Pt is given instructions in wound care, activity, medications, and warning signs: SOB, increasing in pain, chest pain, redness or temperature- if these occur, come to ED.
--- NOTE | 2021-03-09 14:23 | W.PM.DSUDISC ---
Discharge Plan Disposition Patient Disposition: HOME Condition: Improving Discharge Details Attending Provider: Hazel Lindsey Primary Care Provider: Dillon Muller Home Meds and New Rx's Prescriptions: No Action metoprolol tartrate 25 mg tablet 50 mg PO BID RF: 0 magnesium oxide 400 mg magnesium tablet 400 mg PO DAILY Qty: 90 RF: 3 spironolactone 50 mg tablet 50 mg PO TID RF: 0 torsemide 20 mg tablet 20 mg PO TID RF: 0 lactulose 20 gram/30 mL solution 30 g PO TID PRNRF: 0 nitroglycerin 0.4 mg Tablet, Sublingual 0.4 mg SUBLINGUAL Q5M PRNRF: 0 Xifaxan 550 mg tablet 550 mg PO BID RF: 0 Discharge Instructions Additional Instructions: -F/u w/ June on 03/16 @1pm for suture removal -repeat procedure on 03/26 at Noon. -will need to come at 10:15 for labs and radiology at 10:30 for xray. -if any shortness of breathe, bleeding, fever >101, go to ER. Activity:: Activity as Tolerated Remove Dressings/Wound Care:: 24 hours Shower/Bathe:: 24 hours Diet:: high protein Discharge Orders Discharge Orders: Discharge Order (Routine); Ordered 03/09/21 Ordered By: Hazel Lindsey DS: Diagnosis Discharge Diagnosis (1) Hypokalemia due to excessive renal loss of potassium: Status: Acute (2) Cirrhosis of liver with ascites: Status: Acute (3) Cardiomyopathy: Status: Active (4) Congestive heart failure: Status: Active (5) Pleural effusion: Status: Active (6) Advanced hepatic cirrhosis: Status: Chronic (7) Atrial fibrillation with controlled ventricular rate: Status: Acute (8) CKD (chronic kidney disease) stage 4, GFR 15-29 ml/min: Status: Acute
[2021-03-09] MEDS: ALBUMIN HUMAN 25 GM/100 ML BTL IV ×2 (14:26→14:44)
--- NOTE | 2021-03-09 14:32 | DI.RAD_ITS ---
Exam(s) XR PORTABLE CHEST AP EXAM: XR PORTABLE CHEST AP CLINICAL HISTORY: s/p thoro TECHNIQUE: COMPARISON: CR XR CHEST 2V PA LATERAL from 03/09/2021 FINDINGS: Portable AP chest, post thoracentesis, at 1430 hours. There is marked interval decrease in size of t he right pleural effusion. There is no evidence of pneumothorax. Lungs remain clear. IMPRESSION: RADIATION DOSE DELIVERED: Total DLP
[2021-03-09 14:35] VITALS: BP 110/69; PULSE 59; RESP 16; TEMP 36.5; O2SAT 100
== END 2021-03-09 15:15 | disposition home or self-care (01) ==
PROVIDERS: PCP Family Medicine; Visit Provider Surgery
PROC: 0W9G3ZZ Drainage of Peritoneal Cavity, Percutaneous Approach (ICD-10-PCS; CPT 49082; principal; 2021-03-09 13:00)
PROC: (CPT 32554; 2021-03-09 13:00)
DX: J90 Pleural effusion, not elsewhere classified (principal); R18.8 Other ascites; K74.60 Unspecified cirrhosis of liver
CPT/HCPCS: 49083; 32555; 36415; 80053; 96365; 71045; 71046; 82140; 83735; 83880; 85025; 85610; 86140

== ENCOUNTER → 2021-03-16 12:52 | Outpatient (BNVA) | payer MEDICARE, SELFPAY | PROVIDERS: PCP Family Medicine; Referring Provider Family Medicine; Visit Provider Surgery | DX: Z48.02 Encounter for removal of sutures (principal) ==

== ENCOUNTER 2021-03-26 01:58 | Outpatient (CLI) | payer MEDICARE, SELFPAY ==
[2021-03-26 13:32] LABS: Abs Immature Grans 0.03 10^3/uL (0.0-0.06); Absolute Basophil Count 0.07 10^3/uL (0.0-0.2); Absolute Eosinophil Count 0.24 10^3/uL (0.0-0.7); Absolute Lymphocyte Count 1.39 10^3/uL (1.2-3.4); Absolute Monocyte Count 0.84 10^3/uL (0.1-0.8); Absolute Neutrophil Count 2.67 10^3/uL (1.2-6.7); Basophils % 1.3; Eosinophils % 4.6; HCT 34.8 % (36.0-46.0); HGB 11.5 g/dL (11.2-15.7); Immature Grans % 0.6; Lymphocytes % 26.5; MPV 10.2 fL (8.0-11.0); Nucleated RBC 0 %; Platelet Count 119 10^3/uL (130-400); RBC 3.48 10^6/uL (3.93-5.22); RDW 17.1 % (11.7-14.6); RDW-SD 62.4 fL; WBC 5.24 10^3/uL (4.4-10.8)
[2021-03-26 13:38] LABS: Ammonia 62 umol/L (11-32)
[2021-03-26 13:41] LABS: INR 1.4 (0.9-1.1); Prothrombin Time 13.8 sec (9.3-11.0)
[2021-03-26 14:29] LABS: ALT 118 U/L (14-59); AST 124 U/L (15-37); Albumin 2.9 g/dL (3.4-5.0); Alkaline Phosphatase 186 U/L (46-116); Anion Gap 5.7 mmol/L (3-11); BUN 28 mg/dL (7-18); Bilirubin, Total 3.2 mg/dL (0.2-1.0); C-Reactive Protein 0.86 mg/dL (0.0-0.3); CO2 30.3 mmol/L (21.0-32.0); CREATININE 1.7 mg/dL (0.55-1.02); Chloride 104 mmol/L (98-107); Estimated GFR 31.44 (mL/min/1.73m2); Glucose 85 mg/dL (74-106); NT-proBNP 2122 pg/mL (<300); Sodium 140 mmol/L (136-145); Total Protein 6.5 g/dL (6.4-8.2)
== END 2021-03-26 01:59 | disposition home or self-care (01) ==
LOC: LBO 01:58
PROVIDERS: PCP Family Medicine; Visit Provider Surgery
DX: B19.20 Unspecified viral hepatitis C without hepatic coma (principal); K74.69 Other cirrhosis of liver; J90 Pleural effusion, not elsewhere classified; I50.9 Heart failure, unspecified; I42.9 Cardiomyopathy, unspecified; E87.6 Hypokalemia; I48.91 Unspecified atrial fibrillation; N18.4 Chronic kidney disease, stage 4 (severe)
CPT/HCPCS: 36415; 80053; 82140; 83880; 85025; 85610; 86140

== ENCOUNTER 2021-03-26 04:29 | Day surgery (SDC) | payer MEDICARE, MEDICAID, SELFPAY ==
--- NOTE | 2021-03-26 | DI.RAD_ITS ---
Exam(s) XR PORTABLE CHEST AP EXAM: XR PORTABLE CHEST AP CLINICAL HISTORY: thoro TECHNIQUE: 2D digital imaging was performed. COMPARISON: CR XR CHEST 2V PA LATERAL from 03/26/2021 CR XR CHEST 2V PA LATERAL from 03/26/2021 FINDINGS: MEDIASTINUM: Normal. HEART: Normal. PULMONARY VASCULATURE: Normal. LUNGS: Clear. PLEURAL SPACE: There is a tiny right apical pneumothorax. There has been significant decrease in siz e of the right pleural effusion status post thoracentesis. BONE:Within normal limits for the patient's age. OTHER FINDINGS:Normal. IMPRESSION: 1. Interval decrease in the right pleural effusion with a small right residual pleural effusion prese nt. 2. Tiny right apical pneumothorax. DATA REPOSITORY: RADIATION DOSE DELIVERED:
--- NOTE | 2021-03-26 13:35 | DI.RAD_ITS ---
Exam(s) XR CHEST 2V PA LATERAL EXAM: XR CHEST 2V PA LATERAL CLINICAL HISTORY: CIRRHOSIS OF LIVER,PLEURAL EFFUSION,PRE THORACENTESIS TECHNIQUE: 2D digital imaging was performed. COMPARISON: CR XR PORTABLE CHEST AP from 03/09/2021 CR XR CHEST 2V PA LATERAL from 03/09/2021 CR XR CHEST 2V PA LATERAL from 03/09/2021 FINDINGS: There has been reaccumulation of the right pleural effusion, similar to the 03/09/21 exam prior to tho racentesis. There is mild linear atelectasis above the effusion. No left effusion is seen. Left eric ng is clear. The heart size is normal. Scoliosis is noted. IMPRESSION: Reaccumulation of moderate size right pleural effusion. DATA REPOSITORY: RADIATION DOSE DELIVERED:
[2021-03-26 14:04] VITALS: BP 115/66; PULSE 83; RESP 16; TEMP 36.3; O2SAT 100
--- NOTE | 2021-03-26 17:09 | ROE_ITS ---
Date of service: 03/26/21 Time of Service: 17:09 Operative Note Operative Note DATE OF PROCEDURE: 03/26/21 PRE-OP DIAGNOSIS: cirrosis PROCEDURE: para/thoro SURGEON: Hazel Lindsey ANESTHESIA TYPE: Local By Surgeon Refer to Anesthesia Record ESTIMATED BLOOD LOSS: 2 PATHOLOGY: none sent COMPLICATIONS: None Patient was transported to: same day Procedure Description: The patient is brought to the procedure room and placed in the supine position. Placement chosen on top in the right upper quadrant. A time-out is done. Ultrasound is used to localize the pocket. The area is prepped and draped in the usual sterile fashion using a ChloraPrep scrub solution. 20 cc's of 1% Lidocaine with epinephrine is used for local anesthetization. The abdomen is punctured and the catheter is inserted. 540cc of light yellow fluid is evacuated today. The catheter is removed. Pressure dressing is applied. The patient tolerated the procedure well without complication. Operative Note Pt is here today for thoracentesis for symptoms of shortness of breath. Chest x-ray was reviewed prior to beginning the procedure. Informed consent was obtained explaining risks and benefits of the procedure, including but not limited to bleeding, infection, pneumothorax, recurrence, complications of anesthesia, and other unforetold complications. PROCEDURE: The patient is brought to the procedure room and placed in the seated position. Ultrasound is used to localize the pocket on the left chest. The area is marked and then prepped and draped in the usual sterile fashion u sing a ChloraPrep scrub solution. 10 cc's of 1% Lidocaine is used to anesthetize the T10 interspace. The small chai is made with a #11 blade. The needle and catheter is then inserted over the top of the rib, aspirating as it is inserted. The needle is then removed. The catheter is then hooked up to the Vacutainer system and 2500 cc's of straw-colored fluid is evacuated. The catheter is removed; pressure is held. Sterile compression dressing is applied. Portable chest x-ray shows no pneumothorax. Pt is given instructions in wound care, activity, medications, and warning signs: SOB, increasing in pain, chest pain, redness or temperature- if these occur, come to ED.
[2021-03-26 17:13] VITALS: BP 119/76; PULSE 71; RESP 16; TEMP 36.5; O2SAT 96
--- NOTE | 2021-03-26 17:20 | W.PM.DSUDISC ---
Discharge Plan Disposition Condition: Good Discharge Details Reason For Visit: removal of fluid Attending Provider: Hazel Lindsey Primary Care Provider: Dillon Muller Home Meds and New Rx's Prescriptions: No Action metoprolol tartrate 25 mg tablet 50 mg PO BID RF: 0 magnesium oxide 400 mg magnesium tablet 400 mg PO DAILY Qty: 90 RF: 3 spironolactone 50 mg tablet 50 mg PO TID RF: 0 torsemide 20 mg tablet 20 mg PO TID RF: 0 lactulose 20 gram/30 mL solution 30 g PO TID PRNRF: 0 nitroglycerin 0.4 mg Tablet, Sublingual 0.4 mg SUBLINGUAL Q5M PRNRF: 0 Xifaxan 550 mg tablet 550 mg PO BID RF: 0 Discharge Instructions Additional Instructions: -Kb Watkins 04/01 in clinic for suture removal -Repeat procedure 04/13. My office will call for time. Activity:: resume regular activity in am Remove Dressings/Wound Care:: 24 hours Shower/Bathe:: 24 hours Diet:: low sodium/high protein DS: Diagnosis Discharge Diagnosis (1) Chronic hepatitis C: Status: Chronic (2) Cirrhosis of liver with ascites: Status: Acute (3) Cardiomyopathy: Status: Active (4) Congestive heart failure: Status: Active (5) Pleural effusion: Status: Active (6) Prerenal azotemia: Status: Acute (7) Non-sustained ventricular tachycardia: Status: Acute (8) Advanced hepatic cirrhosis: Status: Chronic (9) Atrial fibrillation with controlled ventricular rate: Status: Acute (10) CKD (chronic kidney disease) stage 4, GFR 15-29 ml/min: Status: Acute
--- NOTE | 2021-03-26 17:43 | DI.VRAD_ITS ---
Addendum created by Jose Maria Green MD on 03/26/2021 6:42:17 PM EDT: THIS REPORT CONTAINS FINDINGS THAT MAY BE CRITICAL TO PATIENT CARE. The findings were verbally communicated via telephone conference with Dr. Moreno at 6:41 PM EDT on 03/26/2021. The findings were acknowledged and understood. Initial report created on 03/26/2021 5:42:41 PM EDT: PROCEDURE INFORMATION: Exam: XR Chest Exam date and time: 03/26/2021 5:08 PM Age: 55 years old Clinical indication: Screening exam; Other screening; Patient HX: S/P thorocentesis TECHNIQUE: Imaging protocol: XR of the chest. Views: 1 view. COMPARISON: CR XR CHEST 2V PA LATERAL 03/26/2021 1:35 PM FINDINGS: Lungs: The lung parenchyma is are unremarkable. Pleural spaces: There is a very small right apex okay pneumothorax. Significantly decreased pleural effusion with some mild residual pleural fluid. Heart/Mediastinum: The heart is mildly enlarged. Bones/joints: Unremarkable. IMPRESSION: 1. There is a very small right apex pneumothorax. 2. The heart is mildly enlarged. 3. Small residual right pleural effusion. Dictated and Authenticated by: Jose Maria Green MD. Ordering:JEFFREY Oliva MD
--- NOTE | 2021-03-26 19:01 | W.PM.PROGNOT ---
Date of Service Date of service: 03/26/21 Time of Service: 19:02 Subjective Subjective Interval history since last seen: I received a call from [facility], as the on-call physician, that there was a tiny right apical pneumthorax on the post-procedure x-ray from today. I personally reviewed the image with the radiologist, however I could not still identify it. I made attempts to call the both the patient and her 's cell phones. I left a message for the patient to call the hospital regarding her procedure. Objective Last Vital Signs Temp 97.7 F 03/26/21 17:13 Pulse 71 03/26/21 17:13 Resp 16 03/26/21 17:13 BP 119/76 03/26/21 17:13 Pulse Ox 96 03/26/21 17:13
== END 2021-03-26 17:33 ==
PROVIDERS: PCP Family Medicine; Visit Provider Surgery
PROC: 0W9G3ZZ Drainage of Peritoneal Cavity, Percutaneous Approach (ICD-10-PCS; CPT 49082; principal; 2021-03-26 13:15)
PROC: (CPT 32554; 2021-03-26 13:15)
DX: J90 Pleural effusion, not elsewhere classified (principal); R18.8 Other ascites; K74.60 Unspecified cirrhosis of liver; B18.2 Chronic viral hepatitis C; J95.811 Postprocedural pneumothorax
CPT/HCPCS: 32555; 36415; 80053; 71045; 71046; 82140; 83880; 85025; 85610; 86140

== ENCOUNTER → 2021-04-02 09:59 | Outpatient (BNVA) | payer MEDICARE, SELFPAY | PROVIDERS: PCP Family Medicine; Referring Provider Family Medicine; Visit Provider Physical Therapy Assistant | DX: Z48.02 Encounter for removal of sutures (principal) ==

== ENCOUNTER 2021-04-13 03:33 | Outpatient (CLI) | payer MEDICARE, SELFPAY ==
[2021-04-13 13:19] LABS: Abs Immature Grans 0.03 10^3/uL (0.0-0.06); Absolute Basophil Count 0.06 10^3/uL (0.0-0.2); Absolute Eosinophil Count 0.16 10^3/uL (0.0-0.7); Absolute Lymphocyte Count 1.35 10^3/uL (1.2-3.4); Absolute Monocyte Count 0.86 10^3/uL (0.1-0.8); Basophils % 1.1; HCT 35.7 % (36.0-46.0); Immature Grans % 0.6; Lymphocytes % 25.2; MCH 33.1 pg (27.0-33.0); MCHC 33.6 % (32.0-36.0); MCV 98.6 fL (80-95); MPV 10.5 fL (8.0-11.0); Neutrophils % 54.1; Nucleated RBC 0 %; Platelet Count 120 10^3/uL (130-400); RBC 3.62 10^6/uL (3.93-5.22); RDW 15.9 % (11.7-14.6); RDW-SD 58.4 fL; WBC 5.36 10^3/uL (4.4-10.8)
[2021-04-13 13:33] LABS: Ammonia 93 umol/L (11-32)
[2021-04-13 14:23] LABS: ALT 119 U/L (14-59); AST 134 U/L (15-37); Albumin 2.6 g/dL (3.4-5.0); Alkaline Phosphatase 191 U/L (46-116); Anion Gap 6.5 mmol/L (3-11); BUN 31 mg/dL (7-18); Bilirubin, Total 2.4 mg/dL (0.2-1.0); C-Reactive Protein 0.88 mg/dL (0.0-0.3); CO2 28.5 mmol/L (21.0-32.0); CREATININE 1.8 mg/dL (0.55-1.02); Calcium 8.1 mg/dL (8.5-10.1); Chloride 104 mmol/L (98-107); Estimated GFR 29.43 (mL/min/1.73m2); Glucose 82 mg/dL (74-106); NT-proBNP 1649 pg/mL (<300); Potassium 3.8 mmol/L (3.5-5.1); Sodium 139 mmol/L (136-145); Total Protein 6.7 g/dL (6.4-8.2)
[2021-04-13 14:26] LABS: INR 1.3 (0.9-1.1); Prothrombin Time 13.3 sec (9.3-11.0)
== END 2021-04-13 03:34 | disposition home or self-care (01) ==
LOC: LBO 03:33
PROVIDERS: PCP Family Medicine; Visit Provider Surgery
DX: K74.69 Other cirrhosis of liver (principal); J90 Pleural effusion, not elsewhere classified; B19.20 Unspecified viral hepatitis C without hepatic coma; R06.02 Shortness of breath
CPT/HCPCS: 36415; 80053; 82140; 83880; 85025; 85610; 86140

== ENCOUNTER 2021-04-13 13:21 | Day surgery (SDC) | payer MEDICARE, MEDICAID, SELFPAY ==
--- NOTE | 2021-04-13 | DI.RAD_ITS ---
Exam(s) XR PORTABLE CHEST AP EXAM: XR PORTABLE CHEST AP CLINICAL HISTORY: s/p thoro TECHNIQUE: 2D digital imaging was performed. COMPARISON: CR,XR XR PORTABLE CHEST AP from 03/26/2021 CR XR CHEST 2V PA LATERAL from 04/13/2021 FINDINGS: MEDIASTINUM: Normal. HEART: Normal. PULMONARY VASCULATURE: Normal. LUNGS: Clear. PLEURAL SPACE: There has been interval decrease of the right pleural effusion. A small effusion on t he right persists. No left pleural effusion is seen. There may be a tiny left apical pneumothorax. BONE:Within normal limits for the patient's age. OTHER FINDINGS:Normal. IMPRESSION: Interval decrease in size of the right pleural effusion following thoracentesis. DATA REPOSITORY: RADIATION DOSE DELIVERED:
--- NOTE | 2021-04-13 06:30 | DI.RAD_ITS ---
Exam(s) XR CHEST 2V PA LATERAL EXAM: XR CHEST 2V PA LATERAL CLINICAL HISTORY: pre op for para/thoracentesis,cirrhosis of liver, pleural effusion,j90 TECHNIQUE: 2D digital imaging was performed. COMPARISON: CR,XR XR PORTABLE CHEST AP from 03/26/2021 CR XR CHEST 2V PA LATERAL from 03/26/2021 FINDINGS: MEDIASTINUM: Normal. HEART: Normal. PULMONARY VASCULATURE: Normal. LUNGS: Atelectasis in the right lung. The left lung is clear. PLEURAL SPACE: There has been a reaccumulation of the right pleural effusion which now occupies appro ximately 1/3 of the right hemithorax. BONE:Within normal limits for the patient's age. Right convex thoracic scoliosis. OTHER FINDINGS:Normal. IMPRESSION: Reaccumulation of the right pleural effusion with right atelectasis. DATA REPOSITORY: RADIATION DOSE DELIVERED:
[2021-04-13 14:03] VITALS: BP 109/68; PULSE 70; RESP 16; TEMP 36; O2SAT 99
[2021-04-13] MEDS: Sodium Bicarbonate 50 MEQ/50 ML VIAL (14:45)
--- NOTE | 2021-04-13 15:14 | ROE_ITS ---
Date of service: 04/13/21 Time of Service: 15:14 Operative Note Operative Note DATE OF PROCEDURE: 04/13/21 PRE-OP DIAGNOSIS: cirhosis POST-OP DIAGNOSIS: same PROCEDURE: SURGEON: Hazel Lindsey ANESTHESIA TYPE: Local By Surgeon Refer to Anesthesia Record ESTIMATED BLOOD LOSS: 0 PATHOLOGY: none sent COMPLICATIONS: None Patient was transported to: same day Patient's condition: stable Findings: 2700 Procedure Description: Pt is here today for thoracentesis for symptoms of shortness of breath. Chest x-ray was reviewed prior to beginning the procedure. Informed consent was obtained explaining risks and benefits of the procedure, including but not limited to bleeding, infection, pneumothorax, recurrence, complications of anesthesia, and other unforetold complications. PROCEDURE: The patient is brought to the procedure room and placed in the seated position. Ultrasound is used to localize the pocket on the left chest. The area is marked and then prepped and draped in the usual sterile fashion using a ChloraPrep scrub solution. 10 cc's of 1% Lidocaine is used to anesthe tize the T10 interspace. The small chai is made with a #11 blade. The needle and catheter is then inserted over the top of the rib, aspirating as it is inserted. The needle is then removed. The catheter is then hooked up to the Vacutainer system and 2700 cc's of straw-colored fluid is evacuated. The catheter is removed; pressure is held. I did place a single suture for leak control. Patient will follow up my office in a week to have this removed. Sterile compression dressing is applied. Portable chest x-ray shows no pneumothorax. There is still a slight amount of fluid left, may be 100 cc. Because of this I will schedule her in 2 weeks time, to repeat the procedure. Patient did not have any abdominal ascites today. I did do a ultrasound and look in all 4 quadrants and there was minimal ascites and not enough to do a paracentesis, probably less than 100 cc. I did review her labs with her today and give her a copy of her lab work as well. Her LFTs and ammonia are slightly elevated today. But they do have a tendency to fluctuate quite rapidly and I am not concerned. She is possibly going to be starting another medication for her hep C. Her viral titers still show active hep C. We will need to watch her closely to make sure that her liver function does not decompensate when she starts this treatment. Pt is given instructions in wound care, activity, medications, and warning signs: SOB, increasing in pain, chest pain, redness or temperature- if these occur, come to ED.
[2021-04-13 15:24] VITALS: BP 108/67; PULSE 73; RESP 16; TEMP 36.4; O2SAT 99
--- NOTE | 2021-04-13 15:26 | W.PM.DSUDISC ---
Discharge Plan Disposition Patient Disposition: HOME Condition: Good Discharge Details Reason For Visit: thorocentisis Attending Provider: Hazel Lindsey Primary Care Provider: Dillon Muller Home Meds and New Rx's Prescriptions: No Action metoprolol tartrate 25 mg tablet 50 mg PO BID RF: 0 magnesium oxide 400 mg magnesium tablet 400 mg PO DAILY Qty: 90 RF: 3 spironolactone 50 mg tablet 50 mg PO TID RF: 0 torsemide 20 mg tablet 20 mg PO QID RF: 0 lactulose 20 gram/30 mL solution 30 g PO TID PRNRF: 0 Vosevi 400-100-100 mg tablet 1 tab PO DAILY RF: 0 famotidine 20 mg tablet 20 mg PO DAILY PRNRF: 0 nitroglycerin [Nitrostat] 0.4 mg tablet, sublingual 0.4 mg sublingual Q5M PRNRF: 0 Xifaxan 550 mg tablet 550 mg PO BID RF: 0 Discharge Instructions Additional Instructions: f/u [facility] to have suture removed. f/u 8/10 for fluid removal -elevate head of bed 3-4 inches to try to get fluid to stay in abdomen Activity:: Activity as Tolerated Remove Dressings/Wound Care:: 24 hours Shower/Bathe:: 24 hours Diet:: Low Sodium Discharge Orders Discharge Orders: Discharge Order (Routine); Ordered 04/13/21 Ordered By: Hazel Lindsey DS: Diagnosis Discharge Diagnosis (1) Hepatic encephalopathy: Status: Acute (2) Hydrothorax: Status: Acute (3) Chronic hepatitis C: Status: Chronic (4) Cirrhosis of liver with ascites: Status: Acute (5) Cardiomyopathy: Status: Active (6) Congestive heart failure: Status: Active
== END 2021-04-13 15:40 | disposition home or self-care (01) ==
PROVIDERS: PCP Family Medicine; Visit Provider Surgery
PROC: (CPT 32554; 2021-04-13 14:00)
DX: J90 Pleural effusion, not elsewhere classified (principal); B18.2 Chronic viral hepatitis C; K74.60 Unspecified cirrhosis of liver
CPT/HCPCS: 32555; 36415; 80053; 71045; 71046; 82140; 83880; 85025; 85610; 86140

== ENCOUNTER → 2021-04-20 10:38 | Outpatient (BNVA) | payer MEDICARE, SELFPAY | PROVIDERS: PCP Family Medicine; Referring Provider Family Medicine; Visit Provider Surgery | DX: Z48.02 Encounter for removal of sutures (principal) ==

== ENCOUNTER 2021-04-27 03:59 | Outpatient (CLI) | payer MEDICARE, SELFPAY ==
[2021-04-27 12:33] LABS: Abs Immature Grans 0.02 10^3/uL (0.0-0.06); Absolute Basophil Count 0.06 10^3/uL (0.0-0.2); Absolute Eosinophil Count 0.19 10^3/uL (0.0-0.7); Absolute Lymphocyte Count 1.34 10^3/uL (1.2-3.4); Absolute Monocyte Count 0.72 10^3/uL (0.1-0.8); Absolute Neutrophil Count 2.74 10^3/uL (1.2-6.7); Basophils % 1.2; Eosinophils % 3.7; HCT 34.9 % (36.0-46.0); HGB 11.5 g/dL (11.2-15.7); Immature Grans % 0.4; Lymphocytes % 26.4; MCH 32.4 pg (27.0-33.0); MCV 98.3 fL (80-95); Monocytes % 14.2; Neutrophils % 54.1; Nucleated RBC 0 %; Platelet Count 135 10^3/uL (130-400); RBC 3.55 10^6/uL (3.93-5.22); RDW 15.4 % (11.7-14.6); RDW-SD 55.8 fL; WBC 5.07 10^3/uL (4.4-10.8)
[2021-04-27 12:51] LABS: Ammonia 93 umol/L (11-32)
[2021-04-27 12:54] LABS: ALT 96 U/L (14-59); AST 102 U/L (15-37); Albumin 2.5 g/dL (3.4-5.0); Alkaline Phosphatase 167 U/L (46-116); Anion Gap 5.6 mmol/L (3-11); BUN 32 mg/dL (7-18); Bilirubin, Total 2.9 mg/dL (0.2-1.0); C-Reactive Protein 1.02 mg/dL (0.0-0.3); CO2 26.4 mmol/L (21.0-32.0); CREATININE 1.9 mg/dL (0.55-1.02); Calcium 8.6 mg/dL (8.5-10.1); Chloride 104 mmol/L (98-107); Estimated GFR 27.65 (mL/min/1.73m2); Glucose 126 mg/dL (74-106); NT-proBNP 2050 pg/mL (<300); Potassium 4.1 mmol/L (3.5-5.1); Sodium 136 mmol/L (136-145); Total Protein 6.8 g/dL (6.4-8.2)
[2021-04-27 13:05] LABS: Magnesium 1.9 mg/dL (1.8-2.4)
== END 2021-04-27 04:00 | disposition home or self-care (01) ==
LOC: LBO 03:59
PROVIDERS: Nurse Practitioner Adult Health; PCP Family Medicine; Visit Provider Surgery
DX: K74.69 Other cirrhosis of liver (principal); B19.20 Unspecified viral hepatitis C without hepatic coma; J90 Pleural effusion, not elsewhere classified; I50.22 Chronic systolic (congestive) heart failure; E87.6 Hypokalemia
CPT/HCPCS: 36415; 80053; 82140; 83735; 83880; 85025; 86140

== ENCOUNTER 2021-04-27 12:39 | Day surgery (SDC) | payer MEDICARE, MEDICAID, SELFPAY ==
--- NOTE | 2021-04-27 07:49 | DI.RAD_ITS ---
Exam(s) XR CHEST 2V PA LATERAL EXAM: XR CHEST 2V PA LATERAL CLINICAL HISTORY: PRE THORACENTESIS, PLEURAL EFFUSION,J90 TECHNIQUE: 2D digital imaging was performed. COMPARISON: CR XR PORTABLE CHEST AP from 04/13/2021 FINDINGS: MEDIASTINUM: Normal. HEART: Normal. PULMONARY VASCULATURE: Normal. LUNGS: Clear. PLEURAL SPACE: Moderate sized right pleural effusion, reaccumulating since the previous exam. Adjace nt atelectasis. Left lung is clear. BONE:Scoliosis. IMPRESSION: Moderate right pleural effusion. DATA REPOSITORY: RADIATION DOSE DELIVERED:
[2021-04-27 12:47] VITALS: BP 118/71; PULSE 73; RESP 16; TEMP 36.3; O2SAT 97
[2021-04-27 13:50] VITALS: BP 104/74; PULSE 67; RESP 18; TEMP 36.4; O2SAT 99
--- NOTE | 2021-04-27 13:59 | W.PM.DSUDISC ---
Discharge Plan Discharge Details Attending Provider: Hazel Lindsey Primary Care Provider: Dillon Muller Home Meds and New Rx's Prescriptions: Continued loratadine [Claritin] 10 mg tablet 10 mg PO DAILY Qty: 30 RF: 12 metoprolol tartrate 25 mg tablet 50 mg PO BID RF: 0 magnesium oxide 400 mg magnesium tablet 400 mg PO DAILY Qty: 90 RF: 3 spironolactone 50 mg tablet 50 mg PO TID RF: 0 torsemide 20 mg tablet 20 mg PO QID RF: 0 lactulose 20 gram/30 mL solution 30 g PO TID PRNRF: 0 Vosevi 400-100-100 mg tablet 1 tab PO DAILY RF: 0 famotidine 20 mg tablet 20 mg PO DAILY PRNRF: 0 nitroglycerin [Nitrostat] 0.4 mg tablet, sublingual 0.4 mg sublingual Q5M PRNRF: 0 Xifaxan 550 mg tablet 550 mg PO BID RF: 0 Discharge Instructions Additional Instructions: New Rx for claritan f/u June on 05/06 @ 11:45 f/u 05/11 for repeat procedure DS: Diagnosis Discharge Diagnosis (1) Hepatic encephalopathy: Status: Acute (2) Hydrothorax: Status: Acute (3) Chronic hepatitis C: Status: Chronic (4) Cirrhosis of liver with ascites: Status: Acute (5) Cardiomyopathy: Status: Active (6) Congestive heart failure: Status: Active (7) Pleural effusion: Status: Active (8) Atrial fibrillation with controlled ventricular rate: Status: Acute (9) CKD (chronic kidney disease) stage 4, GFR 15-29 ml/min: Status: Acute (10) Seasonal allergic rhinitis: Status: Acute
--- NOTE | 2021-04-27 14:07 | W.PM.OP ---
Date of service: 04/27/21 Time of Service: 14:07 Operative Note Operative Note DATE OF PROCEDURE: 04/27/21 PRE-OP DIAGNOSIS: cirrohsis POST-OP DIAGNOSIS: same PROCEDURE: para SURGEON: Hazel Lindsey ANESTHESIA TYPE: Local By Surgeon Refer to Anesthesia Record ESTIMATED BLOOD LOSS: 0 PATHOLOGY: none sent COMPLICATIONS: None Patient was transported to: no change Patient's condition: stable Procedure Description: The patient is brought to the procedure room and placed in the supine position. Placement chosen on top in the right upper quadrant. A time-out is done. Ultrasound is used to localize the pocket. The area is prepped and draped in the usual sterile fashion using a ChloraPrep scrub solution. 20 cc's of 1% Lidocaine with epinephrine is used for local anesthetization. The abdomen is punctured and the catheter is inserted. 2500 of light yellow fluid is evacuated today. The catheter is removed. Pressure dressing is applied. The patient tolerated the procedure well without complication.
--- NOTE | 2021-04-27 14:10 | DI.RAD_ITS ---
Exam(s) XR PORTABLE CHEST AP EXAM: XR PORTABLE CHEST AP CLINICAL HISTORY: post thoracentesis TECHNIQUE: 2D digital imaging was performed. COMPARISON: CR XR CHEST 2V PA LATERAL from 04/27/2021 FINDINGS: LUNGS: Status post thoracentesis. Significant interval decrease in size right pleural effusion, now small. Mild right lower lobe atelectatic changes. No pneumothorax. HEART: Normal. MEDIASTINUM: Normal. BONES: Scoliosis.. IMPRESSION: Decreased size of right pleural effusion. No pneumothorax. DATA REPOSITORY: RADIATION DOSE DELIVERED:
--- NOTE | 2021-04-27 14:10 | W.PM.OP ---
Date of service: 04/27/21 Time of Service: 14:10 Operative Note Operative Note DATE OF PROCEDURE: 04/27/21 PRE-OP DIAGNOSIS: thoro POST-OP DIAGNOSIS: same PROCEDURE: para SURGEON: Hazel Lindsey ANESTHESIA TYPE: Local By Surgeon Refer to Anesthesia Record ESTIMATED BLOOD LOSS: 0 PATHOLOGY: none sent Patient was transported to: no change Patient's condition: stable Implants: para Procedure Description: Operative Note Operative Note Pt is here today for thoracentesis for symptoms of shortness of breath. Chest x-ray was reviewed prior to beginning the procedure. Informed consent was obtained explaining risks and benefits of the procedure, including but not limited to bleeding, infection, pneumothorax, recurrence, complications of anesthesia, and other unforetold complications. PROCEDURE: The patient is brought to the procedure room and placed in the seated position. Ultrasound is used to localize the pocket on the left chest. The area is marked and then prepped and draped in the usual sterile fashion using a ChloraPrep scrub solution. 10 cc's of 1% Lidocaine is used to anesthetize the T10 interspace. The small chai is made with a #11 blade. The needle and catheter is then inserted over the top of the rib, aspirating as it is inserted. The needle is then removed. The catheter is then hooked up to the Vacutainer system and 2500 cc's of straw-colored fluid is evacuated. The catheter is removed; pressure is held. Sterile compression dressing is applied. Portable chest x-ray shows no pneumothorax. Pt is given instructions in wound care, activity, medications, and warning signs: SOB, increasing in pain, chest pain, redness or temperature- if these occur, come to ED.
== END 2021-04-27 14:23 | disposition home or self-care (01) ==
PROVIDERS: PCP Family Medicine; Visit Provider Surgery
PROC: (CPT 32554; principal; 2021-04-27 12:00)
DX: J90 Pleural effusion, not elsewhere classified (principal); R18.8 Other ascites
CPT/HCPCS: 32554; 49082; 36415; 80053; 71045; 71046; 82140; 83735; 83880; 85025; 86140

== ENCOUNTER 2021-05-06 09:03 | Outpatient (CLI) | payer MEDICARE, MEDICAID, SELFPAY ==
--- NOTE | 2021-05-06 | DI.US_ITS ---
Exam(s) US ABDOMEN LIMITED EXAM: US ABDOMEN LIMITED CLINICAL HISTORY: CHRONIC HEP C WITH CIRRHOSIS,K74.60 TECHNIQUE: Ultrasound abdomen performed using standard protocol. COMPARISON: US US ECHOCARDIOGRAM from 02/03/2021 FINDINGS: There is ascites evident. LIVER: Liver is hyperechoic indicating steatosis. Liver also exhibits a somewhat nodular cirrhotic a ppearance contains multiple small cysts, the largest being in the left hepatic lobe and measuring niko roximately 8 x 7 millimeters. GALLBLADDER/BILIARY: There is a 1.4 cm shadowing gallstone in the gallbladder neck region. Gallbladd er wall is not thickened. There is no pericholecystic fluid The common hepatic duct isnot dilated, measuring 6mm at the level of yudy hepatis. PANCREAS: There is no evidence of pancreatic mass nor dilatation of the pancreatic duct. RIGHT KIDNEY:No evidence of solid mass, calculus, nor hydronephrosis. No cysts evident. ABDOMINAL AORTA AND IVC: Visualized portions exhibit normal caliber. IMPRESSION: 1. Cholelithiasis. No obvious acute cholecystitis nor dilatation of biliary tree and the patient wa s apparently not tender over this area during scanning today. 2. Cirrhotic appearing liver. 3. There is no ascites. DATA REPOSITORY:
== END 2021-05-06 09:23 ==
PROVIDERS: PCP Family Medicine; Visit Provider Internal Medicine Gastroenterology
DX: B18.2 Chronic viral hepatitis C (principal); K74.60 Unspecified cirrhosis of liver; K80.20 Calculus of gallbladder without cholecystitis without obstruction; Z48.02 Encounter for removal of sutures
CPT/HCPCS: 76705

== ENCOUNTER 2021-05-11 05:08 | Outpatient (CLI) | payer MEDICARE, SELFPAY ==
[2021-05-11 09:38] LABS: Abs Immature Grans 0.03 10^3/uL (0.0-0.06); Absolute Basophil Count 0.06 10^3/uL (0.0-0.2); Absolute Eosinophil Count 0.18 10^3/uL (0.0-0.7); Absolute Lymphocyte Count 1.39 10^3/uL (1.2-3.4); Absolute Monocyte Count 0.69 10^3/uL (0.1-0.8); Absolute Neutrophil Count 2.71 10^3/uL (1.2-6.7); Basophils % 1.2; Eosinophils % 3.6; HCT 35.5 % (36.0-46.0); HGB 11.9 g/dL (11.2-15.7); Immature Grans % 0.6; Lymphocytes % 27.5; MCH 32.6 pg (27.0-33.0); MCHC 33.5 % (32.0-36.0); MCV 97.3 fL (80-95); MPV 9.6 fL (8.0-11.0); Monocytes % 13.6; Neutrophils % 53.5; Nucleated RBC 0 %; Platelet Count 134 10^3/uL (130-400); RBC 3.65 10^6/uL (3.93-5.22); RDW-SD 53.9 fL; WBC 5.06 10^3/uL (4.4-10.8)
[2021-05-11 09:49] LABS: Ammonia 81 umol/L (11-32)
[2021-05-11 10:01] LABS: INR 1.4 (0.9-1.1); Prothrombin Time 14.3 sec (9.3-11.0)
[2021-05-11 10:50] LABS: ALT 84 U/L (14-59); AST 87 U/L (15-37); Albumin 2.5 g/dL (3.4-5.0); Alkaline Phosphatase 200 U/L (46-116); BUN 33 mg/dL (7-18); Bilirubin, Total 2.4 mg/dL (0.2-1.0); C-Reactive Protein 0.95 mg/dL (0.0-0.3); CREATININE 1.8 mg/dL (0.55-1.02); Calcium 8.5 mg/dL (8.5-10.1); Chloride 103 mmol/L (98-107); Estimated GFR 29.43 (mL/min/1.73m2); Glucose 87 mg/dL (74-106); NT-proBNP 2775 pg/mL (<300); Sodium 137 mmol/L (136-145); Total Protein 6.8 g/dL (6.4-8.2)
== END 2021-05-11 05:09 | disposition home or self-care (01) ==
LOC: LBO 05:08
PROVIDERS: PCP Family Medicine; Visit Provider Surgery
DX: K74.69 Other cirrhosis of liver (principal); B19.20 Unspecified viral hepatitis C without hepatic coma; J90 Pleural effusion, not elsewhere classified; I50.22 Chronic systolic (congestive) heart failure; E87.6 Hypokalemia
CPT/HCPCS: 36415; 80053; 82140; 83880; 85025; 85610; 86140

== ENCOUNTER 2021-05-11 09:46 | Day surgery (SDC) | payer MEDICARE, MEDICAID, SELFPAY ==
--- NOTE | 2021-05-11 09:45 | DI.RAD_ITS ---
Exam(s) XR CHEST 2V PA LATERAL EXAM: XR CHEST 2V PA LATERAL CLINICAL HISTORY: to be done prior to para/thoracentesis, CIRRHOSIS OF LIVER WITH ASCITES, TECHNIQUE: 2D digital imaging was performed. COMPARISON: CR XR CHEST 2V PA LATERAL from 04/27/2021 CR XR CHEST 2V PA LATERAL from 04/27/2021 FINDINGS: MEDIASTINUM: Normal. HEART: Normal. PULMONARY VASCULATURE: Normal. LUNGS: Left lung clear. PLEURAL SPACE: Reaccumulation of right pleural effusion, moderate in size, similar to pre thoracentes is exam. Area of atelectasis in the right upper lobe. BONE:Scoliosis. IMPRESSION: Reaccumulation of right pleural effusion. DATA REPOSITORY: RADIATION DOSE DELIVERED:
--- NOTE | 2021-05-11 10:32 | W.PM.OP ---
Date of service: 05/11/21 Time of Service: 10:32 Operative Note Operative Note DATE OF PROCEDURE: 05/11/21 PRE-OP DIAGNOSIS: cirrhosis PROCEDURE: thoro & para SURGEON: Hazel Lindsey ANESTHESIA TYPE: Local By Surgeon Refer to Anesthesia Record ESTIMATED BLOOD LOSS: 5 COMPLICATIONS: None Patient was transported to: same day Patient's condition: stable Procedure Description: Operative Note Pt is here today for thoracentesis for symptoms of shortness of breath. Chest x-ray was reviewed prior to beginning the procedure. Informed consent was obtained explaining risks and benefits of the procedure, including but not limited to bleeding, infection, pneumothorax, recurrence, complications of anesthesia, and other unforetold complications. PROCEDURE: The patient is brought to the procedure room and placed in the seated position. Ultrasound is used to localize the pocket on the left chest. The area is marked and then prepped and draped in the usual sterile fashion using a ChloraPrep scrub solution. 10 cc's of 1% Lidocaine is used to anesthetize the T10 interspace. The small chai is made with a #11 blade. The needle and catheter is then inserted over the top of the rib, aspirating as it is inserted. The needle is then removed. The catheter is then hooked up to the Vacutainer system and 2700 cc's of straw-colored fluid is evacuated. The catheter is removed; pressure is held. Sterile compression dressing is applied. The patient is brought to the procedure room and placed in the supine position. Placement chosen on top in the right upper quadrant. A time-out is done. Ultrasound is used to localize the pocket. The area is prepped and draped in the usual sterile fashion using a ChloraPrep scrub solution. 20 cc's of 1% Lidocaine with epinephrine is used for local anesthetization. The abdomen is punctured and the catheter is inserted. 1200cc of light yellow fluid is evacuated today. The catheter is removed. Pressure dressing is applied. The patient tolerated the procedure well without complication. Portable chest x-ray shows no pneumothorax. Patient did receive albumin after her procedures today. Her labs continue to look the same. Unfortunately her hepatitis returned after treatment with a basic. She continues to work with Dr. Noriega and is probably going to start eclupsa with ribavirin. Pt is given instructions in wound care, activity, medications, and warning signs: SOB, increasing in pain, chest pain, redness or temperature- if these occur, come to ED.
[2021-05-11 10:45] VITALS: BP 108/66; PULSE 77; RESP 16; TEMP 35.8; O2SAT 98
[2021-05-11] MEDS: Normal Saline Flush 10 ML SYR IVP ×2 (11:10→13:25)
[2021-05-11 12:57] VITALS: BP 115/85; PULSE 87; RESP 16; TEMP 36; O2SAT 96
[2021-05-11] MEDS: ALBUMIN HUMAN 25 GM/100 ML BTL IV ×2 (13:25→13:58)
--- NOTE | 2021-05-11 13:26 | DI.RAD_ITS ---
Exam(s) XR PORTABLE CHEST AP EXAM: XR PORTABLE CHEST AP CLINICAL HISTORY: s/p thoror TECHNIQUE: 2D digital imaging was performed. COMPARISON: CR XR CHEST 2V PA LATERAL from 05/11/2021 FINDINGS: Patient is status post right thoracentesis. No pneumothorax is seen. There is been considerable int erval decrease in size of the previously noted right pleural effusion, now small. There is mild righ t basilar atelectasis. The left lung is clear.. IMPRESSION: Decreased size of right pleural effusion status post thoracentesis. DATA REPOSITORY: RADIATION DOSE DELIVERED:
[2021-05-11] MEDS: Sodium Bicarbonate 50 MEQ/50 ML VIAL (13:44)
--- NOTE | 2021-05-11 13:50 | PDOC.DSDIS_ITS ---
Discharge Plan Disposition Patient Disposition: HOME Condition: Stable Discharge Details Reason For Visit: fluid removal Attending Provider: Hazel Lindsey Primary Care Provider: Dillon Muller [place] Meds and New Rx's Prescriptions: No Action loratadine [Claritin] 10 mg tablet 10 mg PO DAILY Qty: 30 RF: 12 metoprolol tartrate 25 mg tablet 50 mg PO BID RF: 0 magnesium oxide 400 mg magnesium tablet 400 mg PO DAILY Qty: 90 RF: 3 spironolactone 50 mg tablet 50 mg PO TID RF: 0 torsemide 20 mg tablet 20 mg PO QID RF: 0 lactulose 20 gram/30 mL solution 30 g PO TID PRNRF: 0 famotidine 20 mg tablet 20 mg PO DAILY PRNRF: 0 nitroglycerin [Nitrostat] 0.4 mg tablet, sublingual 0.4 mg sublingual Q5M PRNRF: 0 amoxicillin-pot clavulanate 500-125 mg tablet 1 tab PO BID RF: 0 Xifaxan 550 mg tablet 550 mg PO BID RF: 0 Discharge Instructions Additional Instructions: -f/u June 05/20 at 9am for suture removal -repeat procedure in two wks time w/ albumin Activity:: Activity as Tolerated Remove Dressings/Wound Care:: 24 hours Shower/Bathe:: 24 hours Diet:: high protein Discharge Orders Discharge Orders: Discharge Order (Routine); Ordered 05/11/21 Ordered By: Hazel Lindsey DS: Diagnosis Discharge Diagnosis (1) Chronic hepatitis C: Status: Chronic (2) Advanced hepatic cirrhosis: Status: Chronic
== END 2021-05-11 14:26 | disposition home or self-care (01) ==
PROVIDERS: PCP Family Medicine; Visit Provider Surgery
PROC: (CPT 32554; principal; 2021-05-11 11:15)
DX: J90 Pleural effusion, not elsewhere classified (principal); R18.8 Other ascites; K74.60 Unspecified cirrhosis of liver
CPT/HCPCS: 49083; 32554; 36415; 80053; 96365; 71045; 71046; 82140; 83880; 85025; 85610; 86140

== ENCOUNTER 2021-05-20 09:20 | Outpatient (CLI) | payer MEDICARE, MEDICAID, SELFPAY ==
[2021-05-20 10:14] LABS: Abs Immature Grans 0.02 10^3/uL (0.0-0.06); Absolute Basophil Count 0.06 10^3/uL (0.0-0.2); Absolute Eosinophil Count 0.19 10^3/uL (0.0-0.7); Absolute Lymphocyte Count 1.52 10^3/uL (1.2-3.4); Absolute Monocyte Count 0.75 10^3/uL (0.1-0.8); Absolute Neutrophil Count 2.61 10^3/uL (1.2-6.7); Basophils % 1.2; Eosinophils % 3.7; HCT 34.4 % (36.0-46.0); HGB 11.3 g/dL (11.2-15.7); Immature Grans % 0.4; Lymphocytes % 29.5; MCH 31.8 pg (27.0-33.0); MCHC 32.8 % (32.0-36.0); MCV 96.9 fL (80-95); MPV 9.7 fL (8.0-11.0); Monocytes % 14.6; Neutrophils % 50.6; Nucleated RBC 0 %; Platelet Count 119 10^3/uL (130-400); RBC 3.55 10^6/uL (3.93-5.22); RDW 15.9 % (11.7-14.6); RDW-SD 56.7 fL; WBC 5.15 10^3/uL (4.4-10.8)
[2021-05-20 10:28] LABS: Ammonia 107 umol/L (11-32); INR 1.4 (0.9-1.1); Prothrombin Time 14.2 sec (9.3-11.0)
[2021-05-20 10:35] LABS: ALT 72 U/L (14-59); AST 85 U/L (15-37); Albumin 2.6 g/dL (3.4-5.0); Alkaline Phosphatase 152 U/L (46-116); Anion Gap 8.5 mmol/L (3-11); BUN 36 mg/dL (7-18); Bilirubin, Total 3.5 mg/dL (0.2-1.0); C-Reactive Protein 0.92 mg/dL (0.0-0.3); CO2 23.5 mmol/L (21.0-32.0); CREATININE 1.9 mg/dL (0.55-1.02); Calcium 8.7 mg/dL (8.5-10.1); Chloride 104 mmol/L (98-107); Estimated GFR 27.65 (mL/min/1.73m2); Glucose 90 mg/dL (74-106); NT-proBNP 3051 pg/mL (<300); Potassium 4.1 mmol/L (3.5-5.1); Sodium 136 mmol/L (136-145); Total Protein 6.9 g/dL (6.4-8.2)
== END 2021-05-20 09:21 | disposition home or self-care (01) ==
LOC: LBO 09:23
PROVIDERS: PCP Family Medicine; Visit Provider Surgery
DX: K74.69 Other cirrhosis of liver (principal); E87.6 Hypokalemia; B19.20 Unspecified viral hepatitis C without hepatic coma; R18.8 Other ascites; J90 Pleural effusion, not elsewhere classified
CPT/HCPCS: 36415; 80053; 82140; 83880; 85025; 85610; 86140

== ENCOUNTER 2021-05-20 09:20 | Outpatient (REF) | payer MEDICARE, MEDICAID, SELFPAY ==
[2021-05-20 09:30] LABS: Source Nasal/Nares
[2021-05-20 12:23] LABS: COVID-19 PCR Negative (Negative)
== END 2021-05-20 09:21 | disposition home or self-care (01) ==
LOC: LBN 09:20
PROVIDERS: PCP Family Medicine; Visit Provider Physical Therapy Assistant
DX: Z20.822 Contact with and (suspected) exposure to COVID-19 (principal); Z01.818 Encounter for other preprocedural examination
CPT/HCPCS: 87635

== ENCOUNTER 2021-05-20 13:42 | Day surgery (SDC) | payer MEDICARE, MEDICAID, SELFPAY ==
[2021-05-20 14:02] VITALS: BP 118/73; PULSE 74; RESP 18; TEMP 36.4; O2SAT 100
[2021-05-20] MEDS: Sodium Bicarbonate 50 MEQ/50 ML VIAL (15:45)
[2021-05-20] MEDS: ALBUMIN HUMAN 25 GM/100 ML BTL IV ×2 (16:01→16:24)
[2021-05-20 16:07] VITALS: BP 117/70; PULSE 67; RESP 18; TEMP 36.4; O2SAT 100
[2021-05-20 16:37] VITALS: BP 107/80; PULSE 85; RESP 18; TEMP 36.3; O2SAT 99
--- NOTE | 2021-05-20 16:40 | PDOC.DSDIS_ITS ---
Discharge Plan Disposition Patient Disposition: HOME Condition: Stable Discharge Details Reason For Visit: fluid removal Attending Provider: Hazel Lindsey Primary Care Provider: Dillon Muller [place] Meds and New Rx's Prescriptions: No Action loratadine [Claritin] 10 mg tablet 10 mg PO DAILY Qty: 30 RF: 12 metoprolol tartrate 25 mg tablet 50 mg PO BID RF: 0 magnesium oxide 400 mg magnesium tablet 400 mg PO DAILY Qty: 90 RF: 3 spironolactone 50 mg tablet 50 mg PO TID RF: 0 torsemide 20 mg tablet 20 mg PO QID RF: 0 lactulose 20 gram/30 mL solution 30 g PO TID PRNRF: 0 famotidine 20 mg tablet 20 mg PO DAILY PRNRF: 0 nitroglycerin [Nitrostat] 0.4 mg tablet, sublingual 0.4 mg sublingual Q5M PRNRF: 0 torsemide 20 mg tablet 60 mg PO DAILY RF: 0 Xifaxan 550 mg tablet 550 mg PO BID RF: 0 Discharge Instructions Additional Instructions: ice as needed for pain avoid tylenol f/u 06/01 for repeat procedure -if you feel short of breathe on 05/25- call the surgery clinic in am to schedule procedure for that day -if we do not to the procedure the week of 05/25, f/u in surgery clinic w/ Manuela ERNST at 9am 05/27 for suture removal. 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
--- NOTE | 2021-05-20 16:45 | DI.RAD_ITS ---
Exam(s) XR PORTABLE CHEST AP EXAM: XR PORTABLE CHEST AP CLINICAL HISTORY: thoracentesis TECHNIQUE: COMPARISON: CR XR CHEST 2V PA LATERAL from 05/20/2021 FINDINGS: Portable AP chest at 1747 hours. Previously described right pleural effusion is decreased in size, r eportedly post thoracentesis. No other significant change seen. No evidence of pneumothorax. IMPRESSION: RADIATION DOSE DELIVERED: Total DLP
[2021-05-20] MEDS: Furosemide 20 MG/2 ML VIAL 40 MG IVP (16:50)
[2021-05-20 16:51] VITALS: BP 122/79; PULSE 71; RESP 18; O2SAT 99
--- NOTE | 2021-05-20 18:13 | DI.VRAD_ITS ---
PROCEDURE INFORMATION: Exam: XR Chest Exam date and time: 05/20/2021 4:56 PM Age: 55 years old Clinical indication: Condition or disease; Other: Thorancentesis TECHNIQUE: Imaging protocol: XR of the chest. Views: 1 view. COMPARISON: CR XR CHEST 2V PA LATERAL 05/20/2021 9:32 AM FINDINGS: Lungs: No mass. No consolidation. Pleural spaces: There is marked interval improvement of the right pleural effusion with small residual remaining. There is no evidence for a pneumothorax. Heart/Mediastinum: Unremarkable cardiomediastinal silhouette. No cardiomegaly. Bones/joints: Unremarkable. IMPRESSION: 1. Marked interval improvement of the right pleural effusion. 2. No evidence for a pneumothorax. Dictated and Authenticated by: Paddy Resendiz MD. Ordering:JEFFREY Oliva MD
--- NOTE | 2021-05-20 21:33 | W.PM.OP ---
Date of service: 05/20/21 Time of Service: 16:00 Operative Note Operative Note DATE OF PROCEDURE: 05/20/21 PRE-OP DIAGNOSIS: cirrhosis POST-OP DIAGNOSIS: same PROCEDURE: paraceticisi & thorocentisis SURGEON: Hazel Lindsey ANESTHESIA TYPE: Local By Surgeon Refer to Anesthesia Record ESTIMATED BLOOD LOSS: 1 Patient was transported to: same day Patient's condition: stable Procedure Description: Pt is here today for thoracentesis for symptoms of shortness of breath. Chest x-ray was reviewed prior to beginning the procedure. Informed consent was obtained explaining risks and benefits of the procedure, including but not limited to bleeding, infection, pneumothorax, recurrence, complications of anesthesia, and other unforetold complications. PROCEDURE: The patient is brought to the procedure room and placed in the seated position. Ultrasound is used to localize the fluid on the right chest. The area is marked and then prepped and draped in the usual sterile fashion using a ChloraPrep scrub solution. 10 cc's of 1% Lidocaine is used to anesthetize the T10 interspace. The small chai is made with a #11 blade. The needle and catheter is then inserted over the top of the rib, aspirating as it is inserted. The needle is then removed. The catheter is then hooked up to the Vacutainer system and 2650 cc's of straw-colored fluid is evacuated. The catheter is removed; pressure is held. Sterile compression dressing is applied. The patient is then placed in the supine position. Placement chosen on top in the right upper quadrant. A time-out is done. Ultrasound is used to localize the pocket. The area is prepped and draped in the usual sterile fashion using a ChloraPrep scrub solution. 20 cc's of 1% Lidocaine with epinephrine is used for local anesthetization. The abdomen is punctured and the catheter is inserted. 1900 of light yellow fluid is evacuated today. The catheter is removed. Pressure dressing is applied. The patient tolerated the procedure well without complication. Portable chest x-ray shows no pneumothorax. Pt is given instructions in wound care, activity, medications, and warning signs: SOB, increasing in pain, chest pain, redness or temperature- if these occur, come to ED.
== END 2021-05-20 17:50 | disposition home or self-care (01) ==
PROVIDERS: PCP Family Medicine; Visit Provider Surgery
PROC: 0W9G3ZZ Drainage of Peritoneal Cavity, Percutaneous Approach (ICD-10-PCS; CPT 49082; principal; 2021-05-20 15:30)
PROC: 0W9B3ZZ Drainage of Left Pleural Cavity, Percutaneous Approach (ICD-10-PCS; CPT 32554; 2021-05-20 15:30)
DX: R18.8 Other ascites (principal); K74.69 Other cirrhosis of liver; J91.8 Pleural effusion in other conditions classified elsewhere
CPT/HCPCS: 32554; 49082; 36415; 80053; 96365; 71045; 71046; 82140; 83880; 85025; 85610; 86140; J1941

== ENCOUNTER 2021-05-20 15:10 | Outpatient (CLI) | payer MEDICARE, MEDICAID, SELFPAY ==
--- NOTE | 2021-05-20 09:15 | DI.RAD_ITS ---
Exam(s) XR CHEST 2V PA LATERAL EXAM: XR CHEST 2V PA LATERAL CLINICAL HISTORY: to be done prior to para/thoracenthesis j90, I50.9 TECHNIQUE: 2D digital imaging was performed. COMPARISON: CR XR PORTABLE CHEST AP from 05/11/2021 CR XR CHEST 2V PA LATERAL from 05/11/2021 CR XR CHEST 2V PA LATERAL from 05/11/2021 FINDINGS: There has been reaccumulation of the right pleural effusion similar to the previous exam prior to tho racentesis. Right upper lobe atelectasis is present. The left lung appears clear. IMPRESSION: Reaccumulation of moderate-sized right pleural effusion. DATA REPOSITORY: RADIATION DOSE DELIVERED:
== END 2021-05-20 15:30 ==
PROVIDERS: PCP Family Medicine; Visit Provider Surgery
DX: I50.9 Heart failure, unspecified (principal); J90 Pleural effusion, not elsewhere classified
CPT/HCPCS: 71046

== ENCOUNTER 2021-05-25 11:02 | Day surgery (SDC) | payer MEDICARE, MEDICAID, SELFPAY ==
--- NOTE | 2021-05-25 10:00 | DI.RAD_ITS ---
Exam(s) XR CHEST 2V PA LATERAL EXAM: XR CHEST 2V PA LATERAL CLINICAL HISTORY: sob I42.9 CARDIOMYOPATHY I50.9 HEART FAILURE J90 PLEURAL EFFUSION B19.20 TECHNIQUE: 2D digital imaging was performed. COMPARISON: CR,XR XR PORTABLE CHEST AP from 05/20/2021 CR XR CHEST 2V PA LATERAL from 05/20/2021 FINDINGS: Small right pleural effusion, similar to previous exam which is difficult to directly compare due to differences in technique and lack of lateral view on the previous exam. No pneumothorax. Mild basil ar densities on the right. Left lung clear. Heart size within normal limits. scoliosis. IMPRESSION: stable size small right pleural effusion. DATA REPOSITORY: RADIATION DOSE DELIVERED:
[2021-05-25 11:46] VITALS: BP 124/52; PULSE 86; RESP 20; TEMP 36.3; O2SAT 100
[2021-05-25 11:49] LABS: Source Nasal/Nares
[2021-05-25 15:14] LABS: COVID-19 PCR Negative (Negative)
--- NOTE | 2021-05-25 16:35 | W.PM.DSUDISC ---
Discharge Plan Disposition Patient Disposition: HOME Condition: Good Discharge Details Reason For Visit: paracentisis Attending Provider: Hazel Lindsey Primary Care Provider: Dillon Muller Home Meds and New Rx's Prescriptions: No Action loratadine [Claritin] 10 mg tablet 10 mg PO DAILY Qty: 30 RF: 12 metoprolol tartrate 25 mg tablet 50 mg PO BID RF: 0 spironolactone 50 mg tablet 100 mg PO TID RF: 0 torsemide 20 mg tablet 20 mg PO QID RF: 0 lactulose 20 gram/30 mL solution 30 g PO TID PRNRF: 0 famotidine 20 mg tablet 20 mg PO DAILY PRNRF: 0 nitroglycerin [Nitrostat] 0.4 mg tablet, sublingual 0.4 mg sublingual Q5M PRNRF: 0 torsemide 20 mg tablet 40 mg PO DAILY RF: 0 Xifaxan 550 mg tablet 550 mg PO BID RF: 0 magnesium oxide 400 mg magnesium tablet 400 mg PO DAILY RF: 0 Discharge Instructions Additional Instructions: F/u next 06/01 for repeat procedure Activity:: Activity as Tolerated Remove Dressings/Wound Care:: 24 hours Shower/Bathe:: 24 hours Diet:: high protein Discharge Orders Discharge Orders: Discharge Order (Routine); Ordered 05/25/21 Ordered By: Hazel Lindsey DS: Diagnosis Discharge Diagnosis (1) 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
--- NOTE | 2021-05-25 19:44 | W.PM.OP ---
Date of service: 05/25/21 Time of Service: 15:00 Operative Note Operative Note DATE OF PROCEDURE: 05/25/21 PRE-OP DIAGNOSIS: cirrhosis POST-OP DIAGNOSIS: same PROCEDURE: paracentisi SURGEON: Hazel Lindsey ANESTHESIA TYPE: Local By Surgeon Refer to Anesthesia Record ESTIMATED BLOOD LOSS: 1 PATHOLOGY: none sent Patient was transported to: same day
--- NOTE | 2021-05-26 13:12 | W.PM.OP ---
Date of service: 05/25/21 Time of Service: 15:00 Operative Note Operative Note DATE OF PROCEDURE: 05/25/21 PRE-OP DIAGNOSIS: cirrhosis POST-OP DIAGNOSIS: same SURGEON: Hazel Lindsey ANESTHESIA TYPE: Local By Surgeon Refer to Anesthesia Record ESTIMATED BLOOD LOSS: 0 COMPLICATIONS: None Patient was transported to: same day Procedure Description: The patient is brought to the procedure room and placed in the supine position. Placement chosen on top in the right upper quadrant. A time-out is done. Ultrasound is used to localize the pocket. The area is prepped and draped in the usual sterile fashion using a ChloraPrep scrub solution. 20 cc's of 1% Lidocaine with epinephrine is used for local anesthetization. The abdomen is punctured and the catheter is inserted. 1400 of light yellow fluid is evacuated today. The catheter is removed. Pressure dressing is applied. The patient tolerated the procedure well without complication.
== END 2021-05-25 16:40 | disposition home or self-care (01) ==
PROVIDERS: PCP Family Medicine; Visit Provider Surgery
PROC: 0W9G3ZZ Drainage of Peritoneal Cavity, Percutaneous Approach (ICD-10-PCS; CPT 49082; 2021-05-25 13:45)
DX: R18.8 Other ascites (principal)
CPT/HCPCS: 49082; 36415; 80053; 87635; 71046; 82140; 83735; 83880; 85025; 85379; 86140

== ENCOUNTER 2021-05-25 14:21 | Outpatient (CLI) | payer MEDICARE, SELFPAY ==
[2021-05-25 10:44] LABS: Abs Immature Grans 0.02 10^3/uL (0.0-0.06); Absolute Basophil Count 0.06 10^3/uL (0.0-0.2); Absolute Eosinophil Count 0.33 10^3/uL (0.0-0.7); Absolute Lymphocyte Count 1.47 10^3/uL (1.2-3.4); Absolute Monocyte Count 0.91 10^3/uL (0.1-0.8); Absolute Neutrophil Count 2.78 10^3/uL (1.2-6.7); Basophils % 1.1; Eosinophils % 5.9; HCT 31.7 % (36.0-46.0); HGB 10.7 g/dL (11.2-15.7); Immature Grans % 0.4; Lymphocytes % 26.4; MCH 32.6 pg (27.0-33.0); MCHC 33.8 % (32.0-36.0); MCV 96.6 fL (80-95); MPV 10.4 fL (8.0-11.0); Monocytes % 16.3; Neutrophils % 49.9; Nucleated RBC 0 %; Platelet Count 125 10^3/uL (130-400); RBC 3.28 10^6/uL (3.93-5.22); RDW 16.3 % (11.7-14.6); RDW-SD 58.4 fL; WBC 5.57 10^3/uL (4.4-10.8)
[2021-05-25 10:51] LABS: Magnesium 1.8 mg/dL (1.8-2.4)
[2021-05-25 11:01] LABS: ALT 53 U/L (14-59); AST 60 U/L (15-37); Albumin 2.9 g/dL (3.4-5.0); Alkaline Phosphatase 181 U/L (46-116); Anion Gap 7.1 mmol/L (3-11); BUN 34 mg/dL (7-18); Bilirubin, Total 3.2 mg/dL (0.2-1.0); C-Reactive Protein 1.14 mg/dL (0.0-0.3); CO2 26.9 mmol/L (21.0-32.0); Calcium 8.6 mg/dL (8.5-10.1); Chloride 106 mmol/L (98-107); Estimated GFR 26.06 (mL/min/1.73m2); Glucose 94 mg/dL (74-106); NT-proBNP 5449 pg/mL (<300); Potassium 3.7 mmol/L (3.5-5.1); Sodium 140 mmol/L (136-145); Total Protein 6.6 g/dL (6.4-8.2)
[2021-05-25 11:04] LABS: Ammonia 101 umol/L (11-32)
[2021-05-25 11:22] LABS: D-Dimer 2776 ng/mlFEU (<500)
== END 2021-05-25 14:22 | disposition home or self-care (01) ==
LOC: LBO 14:21
PROVIDERS: PCP Family Medicine; Visit Provider Surgery
DX: B19.20 Unspecified viral hepatitis C without hepatic coma (principal); E87.6 Hypokalemia; I50.9 Heart failure, unspecified; I42.9 Cardiomyopathy, unspecified; J90 Pleural effusion, not elsewhere classified; J94.8 Other specified pleural conditions; K72.90 Hepatic failure, unspecified without coma; K74.69 Other cirrhosis of liver; R18.8 Other ascites
CPT/HCPCS: 36415; 80053; 82140; 83735; 83880; 85025; 85379; 86140

== ENCOUNTER 2021-05-31 03:36 | Outpatient (CLI) | payer MEDICARE, SELFPAY ==
[2021-05-31 11:06] LABS: Source Nasal/Nares
[2021-05-31 13:08] LABS: COVID-19 PCR Negative (Negative)
== END 2021-05-31 03:37 | disposition home or self-care (01) ==
LOC: LBO 03:36
PROVIDERS: Surgery; PCP Family Medicine; Visit Provider Surgery
DX: Z20.822 Contact with and (suspected) exposure to COVID-19 (principal); Z01.818 Encounter for other preprocedural examination
CPT/HCPCS: 87635

== ENCOUNTER 2021-06-01 02:10 | Day surgery (SDC) | payer MEDICARE, MEDICAID, SELFPAY ==
--- NOTE | 2021-06-01 09:12 | DI.RAD_ITS ---
Exam(s) XR CHEST 2V PA LATERAL EXAM: XR CHEST 2V PA LATERAL CLINICAL HISTORY: PRE THORACENTESIS,F/U PLEURAL EFFUSION TECHNIQUE: 2D digital imaging was performed. COMPARISON: CR XR CHEST 2V PA LATERAL from 05/20/2021 CR,XR XR PORTABLE CHEST AP from 05/20/2021 CR,XR XR PORTABLE CHEST AP from 05/20/2021 CR XR CHEST 2V PA LATERAL from 05/25/2021 FINDINGS: There has been some reaccumulation of the right pleural effusion when compared with the previous exam . Mild linear is areas of scarring are noted. The left lung is clear. The heart size is normal. S coliosis is seen. IMPRESSION: Small right pleural effusion, mildly increased in size when compared with the previous exam. DATA REPOSITORY: RADIATION DOSE DELIVERED:
[2021-06-01 09:36] VITALS: BP 104/62; PULSE 71; RESP 20; TEMP 36.5; O2SAT 99
[2021-06-01] MEDS: Sodium Bicarbonate 50 MEQ/50 ML VIAL (11:59)
[2021-06-01 12:05] VITALS: BP 95/69; PULSE 70; RESP 18; TEMP 36.4; O2SAT 97
--- NOTE | 2021-06-01 12:06 | W.PM.DSUDISC ---
Discharge Plan Disposition Patient Disposition: HOME Condition: Stable Discharge Details Reason For Visit: fluid removal chest & abdom Attending Provider: Hazel Lindsey Primary Care Provider: Dillon Muller Home Meds and New Rx's Prescriptions: No Action loratadine [Claritin] 10 mg tablet 10 mg PO DAILY Qty: 30 RF: 12 metoprolol tartrate 25 mg tablet 50 mg PO BID RF: 0 spironolactone 50 mg tablet 100 mg PO TID RF: 0 torsemide 20 mg tablet 20 mg PO QID RF: 0 lactulose 20 gram/30 mL solution 30 g PO TID PRNRF: 0 famotidine 20 mg tablet 20 mg PO DAILY PRNRF: 0 nitroglycerin [Nitrostat] 0.4 mg tablet, sublingual 0.4 mg sublingual Q5M PRNRF: 0 Xifaxan 550 mg tablet 550 mg PO BID RF: 0 magnesium oxide 400 mg magnesium tablet 400 mg PO DAILY RF: 0 Discharge Instructions Additional Instructions: shower in 24 hrs activity as tolerated high protein diet f/u next Activity:: see above Remove Dressings/Wound Care:: 24 hours Shower/Bathe:: 24 hours Diet:: high prtoetein diet Discharge Orders Discharge Orders: Discharge Order (Routine); Ordered 05/31/21 Ordered By: Hazel Lindsey DS: Diagnosis Discharge Diagnosis (1) 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
--- NOTE | 2021-06-01 12:08 | W.PM.OP ---
Date of service: 06/01/21 Time of Service: 12:08 Operative Note Operative Note DATE OF PROCEDURE: 06/01/21 PRE-OP DIAGNOSIS: hep C/cirrhosis POST-OP DIAGNOSIS: same PROCEDURE: thoro/para SURGEON: Hazel Lindsey POLYMERIZATION OVEN OPERATOR: Manuela Kessler ANESTHESIA TYPE: Local By Surgeon Refer to Anesthesia Record ESTIMATED BLOOD LOSS: 1 PATHOLOGY: none sent COMPLICATIONS: None Procedure Description: Pt is here today for thoracentesis for symptoms of shortness of breath. Chest x-ray was reviewed prior to beginning the procedure. Informed consent was obtained explaining risks and benefits of the procedure, including but not limited to bleeding, infection, pneumothorax, recurrence, complications of anesthesia, and other unforetold complications. PROCEDURE: The patient is brought to the procedure room and placed in the seated position. Ultrasound is used to localize the pocket on the right chest. The area is marked and then prepped and draped in the usual sterile fashion using a ChloraPrep scrub solution. 10 cc's of 1% Lidocaine is used to anesthetize the T10 interspace. The small chai is made with a #11 blade. The needle and catheter is then inserted over the top of the rib, aspirating as it is inserted. The needle is then removed. The catheter is then hooked up to the Vacutainer system and 2100 cc's of straw-colored fluid is evacuated. The catheter is removed; pressure is held. Sterile compression dressing is applied. The patient is brought to the procedure room and placed in the supine position. Placement chosen on top in the right upper quadrant. A time-out is done. Ultrasound is used to localize the pocket. The area is prepped and draped in the usual sterile fashion using a ChloraPrep scrub solution. 10 cc's of 1% Lidocaine with epinephrine is used for local anesthetization. The abdomen is punctured and the catheter is inserted. 1300 liters of light yellow fluid is evacuated today. The catheter is removed. Pressure dressing is applied. The patient tolerated the procedure well without complication. Portable chest x-ray shows no pneumothorax. Pt is given instructions in wound care, activity, medications, and warning signs: SOB, increasing in pain, chest pain, redness or temperature- if these occur, come to ED.
[2021-06-01] MEDS: ALBUMIN HUMAN 25 GM/100 ML BTL IV ×2 (12:30→13:06)
--- NOTE | 2021-06-01 12:42 | DI.RAD_ITS ---
Exam(s) XR PORTABLE CHEST AP EXAM: XR PORTABLE CHEST AP CLINICAL HISTORY: s/p thorocentisis TECHNIQUE: 2D digital imaging was performed. COMPARISON: CR XR CHEST 2V PA LATERAL from 06/01/2021 FINDINGS: Status post thoracentesis. Reduction in size of right pleural effusion. No pneumothorax. No infilt rate. IMPRESSION: No acute pulmonary findings. DATA REPOSITORY: RADIATION DOSE DELIVERED:
[2021-06-01 13:06] VITALS: BP 106/61; PULSE 64; RESP 16; TEMP 36.2; O2SAT 98
== END 2021-06-01 12:52 | disposition home or self-care (01) ==
PROVIDERS: PCP Family Medicine; Visit Provider Surgery
PROC: 0W9G3ZZ Drainage of Peritoneal Cavity, Percutaneous Approach (ICD-10-PCS; CPT 49082; principal; 2021-06-01 11:00)
PROC: (CPT 32554; 2021-06-01 11:00)
DX: K74.69 Other cirrhosis of liver (principal); R18.8 Other ascites; J90 Pleural effusion, not elsewhere classified
CPT/HCPCS: 32554; 49082; 71045; 71046

== ENCOUNTER 2021-06-07 02:10 | Outpatient (CLI) | payer MEDICARE, SELFPAY ==
[2021-06-07 11:08] LABS: Source Nasal/Nares
[2021-06-07 14:17] LABS: COVID-19 PCR Negative (Negative)
== END 2021-06-07 02:11 | disposition home or self-care (01) ==
LOC: LBO 02:10
PROVIDERS: PCP Family Medicine; Visit Provider Surgery
DX: Z20.822 Contact with and (suspected) exposure to COVID-19 (principal); Z01.818 Encounter for other preprocedural examination
CPT/HCPCS: 87635

== ENCOUNTER 2021-06-08 09:12 | Outpatient (CLI) | payer MEDICARE, MEDICAID, SELFPAY ==
[2021-06-08 13:36] LABS: Abs Immature Grans 0.04 10^3/uL (0.0-0.06); Absolute Basophil Count 0.06 10^3/uL (0.0-0.2); Absolute Eosinophil Count 0.25 10^3/uL (0.0-0.7); Absolute Lymphocyte Count 1.43 10^3/uL (1.2-3.4); Absolute Monocyte Count 0.77 10^3/uL (0.1-0.8); Basophils % 1.1; Eosinophils % 4.7; HCT 30.2 % (36.0-46.0); HGB 10.2 g/dL (11.2-15.7); Immature Grans % 0.7; Lymphocytes % 26.7; MCH 32.6 pg (27.0-33.0); MCHC 33.8 % (32.0-36.0); MCV 96.5 fL (80-95); MPV 9.8 fL (8.0-11.0); Monocytes % 14.4; Neutrophils % 52.4; Nucleated RBC 0 %; Platelet Count 124 10^3/uL (130-400); RBC 3.13 10^6/uL (3.93-5.22); RDW 16.6 % (11.7-14.6); RDW-SD 58.4 fL; WBC 5.35 10^3/uL (4.4-10.8)
[2021-06-08 13:48] LABS: INR 1.4 (0.9-1.1); Prothrombin Time 14.2 sec (9.3-11.0)
[2021-06-08 13:54] LABS: Ammonia 135 umol/L (11-32)
[2021-06-08 14:02] LABS: ALT 44 U/L (14-59); AST 41 U/L (15-37); Albumin 2.7 g/dL (3.4-5.0); Alkaline Phosphatase 143 U/L (46-116); Anion Gap 7.3 mmol/L (3-11); BUN 28 mg/dL (7-18); Bilirubin, Total 2.7 mg/dL (0.2-1.0); CO2 25.7 mmol/L (21.0-32.0); CREATININE 1.7 mg/dL (0.55-1.02); Calcium 8.5 mg/dL (8.5-10.1); Chloride 104 mmol/L (98-107); Estimated GFR 31.32 (mL/min/1.73m2); Glucose 96 mg/dL (74-106); NT-proBNP 2433 pg/mL (<300); Potassium 3.8 mmol/L (3.5-5.1); Sodium 137 mmol/L (136-145); Total Protein 6.2 g/dL (6.4-8.2)
== END 2021-06-08 09:13 | disposition home or self-care (01) ==
LOC: LBO 09:13
PROVIDERS: PCP Family Medicine; Visit Provider Surgery
DX: K74.60 Unspecified cirrhosis of liver (principal); J90 Pleural effusion, not elsewhere classified; B19.20 Unspecified viral hepatitis C without hepatic coma
CPT/HCPCS: 36415; 80053; 82140; 83880; 85025; 85610; 86140

== ENCOUNTER 2021-06-08 13:47 | Day surgery (SDC) | payer MEDICARE, MEDICAID, SELFPAY ==
--- NOTE | 2021-06-08 | DI.RAD_ITS ---
Exam(s) XR PORTABLE CHEST AP EXAM: XR PORTABLE CHEST AP CLINICAL HISTORY: s/p thoro. TECHNIQUE: 2D digital imaging was performed. COMPARISON: No exams were available for comparison FINDINGS: Heart size is unchanged. Thoracic scoliosis again noted.. The mediastinum is not widened. The size of the right pleural effusion has diminished. There is no pneumothorax evident on this post thoracentesis image. Left lung remains clear. No pleural fluid on the left side. IMPRESSION: Diminished size right pleural effusion. No pneumothorax evident. DATA REPOSITORY: RADIATION DOSE DELIVERED: All CT scans at this facility use at least one of these dose optimization techniques: automated exposure control; mA and/or kV adjustment per patient size (includes targeted e xams where dose is matched to clinical indication); or iterative reconstruction.
--- NOTE | 2021-06-08 07:15 | DI.RAD_ITS ---
Exam(s) XR CHEST 2V PA LATERAL EXAM: XR CHEST 2V PA LATERAL CLINICAL HISTORY: PLEURAL EFFUSION,CIRRHOSIS OF LIVER, PRE THORACENTESIS TECHNIQUE: 2D digital imaging was performed of the chest. Images were obtained. PA and lateral v iews were obtained. COMPARISON: CR XR CHEST 2V PA LATERAL from 06/01/2021 CR XR PORTABLE CHEST AP from 06/01/2021 FINDINGS: MEDIASTINUM: Normal. HEART: Normal. PULMONARY VASCULATURE: Normal. LUNGS: Clear. PLEURAL SPACE: There is a small right pleural effusion. It is shown interval increase in size compar ed to the examination from 06/01/2021 at 12:34 p.m.. BONE:Within normal limits for the patient's age. OTHER FINDINGS:Normal. IMPRESSION: Interval increase in size of the small right pleural effusion since the prior examination. DATA REPOSITORY: RADIATION DOSE DELIVERED:
[2021-06-08 14:02] VITALS: BP 106/64; PULSE 60; RESP 16; TEMP 36.2; O2SAT 100
--- NOTE | 2021-06-08 15:56 | ROE_ITS ---
Date of service: 06/08/21 Time of Service: 15:57 Operative Note Operative Note DATE OF PROCEDURE: 06/08/21 PRE-OP DIAGNOSIS: cirrhosis 2 to Hep C POST-OP DIAGNOSIS: other PROCEDURE: thorcenrisi & pracentisis ANESTHESIA TYPE: Local By Surgeon Refer to Anesthesia Record ESTIMATED BLOOD LOSS: 1 PATHOLOGY: none sent Patient was transported to: same day Patient's condition: stable Procedure Description: Operative Note Pt is here today for thoracentesis for symptoms of shortness of breath. Chest x-ray was reviewed prior to beginning the procedure. Informed consent was obtained explaining risks and benefits of the procedure, including but not limited to bleeding, infection, pneumothorax, recurrence, complications of anesthesia, and other unforetold complications. PROCEDURE: The patient is brought to the procedure room and placed in the seated position. Ultrasound is used to localize the pocket on the right chest. The area is marked and then prepped and draped in the usual sterile fashion using a ChloraPrep scrub solution. 10 cc's of 1% Lidocaine is used to anesthetize the T10 interspace. The small chai is made with a #11 blade. The needle and catheter is then inserted over the top of the rib, aspirating as it is inserted. The needle is then removed. The catheter is then hooked up to the Vacutainer system and 2100 cc's of straw-colored fluid is evacuated. The cathet er is removed; pressure is held. A suture is placed to prevent leaking. We will take this out next week. Sterile compression dressing is applied. Portable chest x-ray shows no pneumothorax. Pt is given instructions in wound care, activity, medications, and warning signs: SOB, increasing in pain, chest pain, redness or temperature- if these occur, come to ED. The patient is brought to the procedure room and placed in the supine position. Placement chosen on top in the right upper quadrant. A time-out is done. Ultrasound is used to localize the pocket. The area is prepped and draped in the usual sterile fashion using a ChloraPrep scrub solution. 20 cc's of 1% Lidocaine with epinephrine is used for local anesthetization. The abdomen is punctured and the catheter is inserted. 200cc of light yellow fluid is evacuated today. The catheter is removed. A suture is placed to prevent leaking. We will take this out next week. Pressure dressing is applied. The patient tolerated the procedure well without complication.
[2021-06-08 15:59] VITALS: BP 103/66; PULSE 67; RESP 16; TEMP 36; O2SAT 97
[2021-06-08] MEDS: ALBUMIN HUMAN 25 GM/100 ML BTL IV ×2 (16:07→16:28)
--- NOTE | 2021-06-08 16:28 | DI.VRAD_ITS ---
PROCEDURE INFORMATION: Exam: XR Chest Exam date and time: 06/08/2021 3:55 PM Age: 56 years old Clinical indication: Condition or disease; Other: S/P thorocentesis TECHNIQUE: Imaging protocol: XR of the chest. Views: 1 view. COMPARISON: CR XR CHEST 2V PA LATERAL 06/08/2021 1:45 PM FINDINGS: Lungs: No evidence of consolidation. Pleural spaces: There is redemonstration of a small pleural effusion at the right lung base. Heart/Mediastinum: Unremarkable. No cardiomegaly. Bones/joints: There is a scoliotic curvature of the thoracic spine. No acute displaced rib fracture. IMPRESSION: 1. Small right pleural effusion again noted. 2. No consolidation. Dictated and Authenticated by: Gloria Ribeiro MD. Ordering:JEFFREY Oliva MD
== END 2021-06-08 16:52 ==
LOC: SUR 13:47
PROVIDERS: PCP Family Medicine; Visit Provider Surgery
PROC: 0W9G3ZZ Drainage of Peritoneal Cavity, Percutaneous Approach (ICD-10-PCS; CPT 49082; principal; 2021-06-08 11:30)
PROC: (CPT 32554; 2021-06-08 11:30)
DX: J90 Pleural effusion, not elsewhere classified (principal); R18.8 Other ascites; K74.60 Unspecified cirrhosis of liver
CPT/HCPCS: 32554; 49082; 36415; 80053; 96365; 71045; 71046; 82140; 83880; 85025; 85610; 86140

== ENCOUNTER 2021-06-14 02:51 | Outpatient (CLI) | payer MEDICARE, SELFPAY ==
[2021-06-14 10:35] LABS: Source Nasal/Nares
[2021-06-14 13:33] LABS: COVID-19 PCR Negative (Negative)
== END 2021-06-14 02:52 | disposition home or self-care (01) ==
LOC: LBO 02:52
PROVIDERS: Surgery; PCP Family Medicine; Visit Provider Surgery
DX: Z20.822 Contact with and (suspected) exposure to COVID-19 (principal); Z01.818 Encounter for other preprocedural examination
CPT/HCPCS: 87635

== ENCOUNTER 2021-06-15 12:54 | Day surgery (SDC) | payer MEDICARE, MEDICAID, SELFPAY ==
--- NOTE | 2021-06-15 | DI.RAD_ITS ---
Exam(s) XR PORTABLE CHEST AP EXAM: XR PORTABLE CHEST AP CLINICAL HISTORY: post procedure TECHNIQUE: 2D digital imaging was performed of the chest. One images were obtained. AP views were obtained. COMPARISON: CR,XR XR PORTABLE CHEST AP from 06/08/2021 CR XR CHEST 2V PA LATERAL from 06/15/2021 CR XR CHEST 2V PA LATERAL from 06/15/2021 FINDINGS: MEDIASTINUM: Normal. HEART: Normal. PULMONARY VASCULATURE: Normal. LUNGS: Clear. PLEURAL SPACE: Interval decrease in size of the right pleural effusion status post thoracentesis. Th ere is a small residual pleural effusion on the right. No left pleural effusion. No pneumothorax. BONE:Within normal limits for the patient's age. Unchanged scoliosis. OTHER FINDINGS:Normal. IMPRESSION: Small residual right pleural effusion following thoracentesis. No pneumothorax. DATA REPOSITORY: RADIATION DOSE DELIVERED:
--- NOTE | 2021-06-15 08:00 | DI.RAD_ITS ---
Exam(s) XR CHEST 2V PA LATERAL EXAM: XR CHEST 2V PA LATERAL CLINICAL HISTORY: PRE THORACENTESIS,PLEURAL EFFUSION,LIVER CIRRHOSIS,J90 TECHNIQUE: 2D digital imaging was performed of the chest. Images were obtained. PA and lateral v iews were obtained. COMPARISON: CR,XR XR PORTABLE CHEST AP from 06/08/2021 CR,XR XR PORTABLE CHEST AP from 06/08/2021 CR XR CHEST 2V PA LATERAL from 06/08/2021 FINDINGS: MEDIASTINUM: Normal. HEART: Normal. PULMONARY VASCULATURE: Normal. LUNGS: Linear atelectasis is seen in the right lung base. PLEURAL SPACE: There has been reaccumulation of the right pleural effusion. There is now a small to moderate size right pleural effusion. No left pleural effusion. No pneumothorax. BONE:Within normal limits for the patient's age. S-type thoracolumbar scoliosis. OTHER FINDINGS:Normal. IMPRESSION: Reaccumulation of the right pleural effusion which is now small to moderate in size. DATA REPOSITORY: RADIATION DOSE DELIVERED:
[2021-06-15 13:01] VITALS: BP 116/65; PULSE 79; RESP 18; TEMP 35.9; O2SAT 100
[2021-06-15] MEDS: Sodium Bicarbonate 50 MEQ/50 ML VIAL (13:35)
--- NOTE | 2021-06-15 15:09 | W.PM.OP ---
Date of service: 06/15/21 Time of Service: 15:09 Operative Note Operative Note DATE OF PROCEDURE: 06/15/21 PRE-OP DIAGNOSIS: cirrhosis POST-OP DIAGNOSIS: same PROCEDURE: thora/para SURGEON: Hazel Lindsey GUEST EXPERIENCE REPRESENTATIVE: Manuela Kessler ANESTHESIA TYPE: Local By Surgeon Refer to Anesthesia Record ESTIMATED BLOOD LOSS: 1 PATHOLOGY: none sent COMPLICATIONS: None Patient was transported to: same day Procedure Description: Pt is here today for thoracentesis for symptoms of shortness of breath. Chest x-ray was reviewed prior to beginning the procedure. Informed consent was obtained explaining risks and benefits of the procedure, including but not limited to bleeding, infection, pneumothorax, recurrence, complications of anesthesia, and other unforetold complications. PROCEDURE: The patient is brought to the procedure room and placed in the seated position. Ultrasound is used to localize the pocket on the right chest. The area is marked and then prepped and draped in the usual sterile fashion using a ChloraPrep scrub solution. 10 cc's of 1% Lidocaine is used to anesthetize the T10 interspace. The small chai is made with a #11 blade. The needle and catheter is then inserted over the top of the rib, aspirating as it is inserted. The needle is then removed. The catheter is then hooked up to the Vacutainer system and 1850 cc's of straw-colored fluid is evacuated. The catheter is removed; pressure is held. Sterile compression dressing is applied. Portable chest x-ray shows no pneumothorax. The patient is brought to the procedure room and placed in the supine position. Placement chosen on top in the right upper quadrant. A time-out is done. Ultrasound is used to localize the pocket. The area is prepped and draped in the usual sterile fashion using a ChloraPrep scrub solution. 20 cc's of 1% Lidocaine with epinephrine is used for local anesthetization. The abdomen is punctured and the catheter is inserted. 500cc of light yellow fluid is evacuated today. The catheter is removed. Pressure dressing is applied. The patient tolerated the procedure well without complication. Pt is given instructions in wound care, activity, medications, and warning signs: SOB, increasing in pain, chest pain, redness or temperature- if these occur, come to ED.
--- NOTE | 2021-06-15 15:20 | PDOC.DSDIS_ITS ---
Discharge Plan Disposition Patient Disposition: HOME Condition: Good Discharge Details Reason For Visit: fluid removal Attending Provider: Hazel Lindsey Primary Care Provider: Dillon Muller [place] Meds and New Rx's Prescriptions: No Action loratadine [Claritin] 10 mg tablet 10 mg PO DAILY Qty: 30 RF: 12 metoprolol tartrate 25 mg tablet 50 mg PO BID RF: 0 spironolactone 50 mg tablet 100 mg PO TID RF: 0 torsemide 20 mg tablet 20 mg PO QID RF: 0 lactulose 20 gram/30 mL solution 30 g PO TID PRNRF: 0 famotidine 20 mg tablet 20 mg PO DAILY PRNRF: 0 nitroglycerin [Nitrostat] 0.4 mg tablet, sublingual 0.4 mg sublingual Q5M PRNRF: 0 Xifaxan 550 mg tablet 550 mg PO BID RF: 0 magnesium oxide 400 mg magnesium tablet 400 mg PO DAILY RF: 0 ribavirin 200 mg tablet 200 mg PO DAILY RF: 0 ledipasvir-sofosbuvir [Harvoni] 90-400 mg tablet 90 - 400 tab PO DAILY RF: 0 Discharge Instructions Additional Instructions: -repeat procedure next Monday Activity:: no strenous activity x 24 hrs Remove Dressings/Wound Care:: 24 hours Shower/Bathe:: 24 hours Diet:: high protein Discharge Orders Discharge Orders: Discharge Order (Routine); Ordered 06/15/21 Ordered By: Hazel Lindsey DS: Diagnosis Discharge Diagnosis (1) 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
[2021-06-15 15:43] LABS: Abs Immature Grans 0.03 10^3/uL (0.0-0.06); Absolute Basophil Count 0.07 10^3/uL (0.0-0.2); Absolute Eosinophil Count 0.25 10^3/uL (0.0-0.7); Absolute Lymphocyte Count 1.76 10^3/uL (1.2-3.4); Absolute Monocyte Count 0.95 10^3/uL (0.1-0.8); Absolute Neutrophil Count 3.52 10^3/uL (1.2-6.7); Basophils % 1.1; Eosinophils % 3.8; HCT 35.6 % (36.0-46.0); HGB 11.6 g/dL (11.2-15.7); Immature Grans % 0.5; Lymphocytes % 26.7; MCHC 32.6 % (32.0-36.0); MCV 98.3 fL (80-95); MPV 9.8 fL (8.0-11.0); Monocytes % 14.4; Neutrophils % 53.5; Nucleated RBC 0 %; Platelet Count 137 10^3/uL (130-400); RBC 3.62 10^6/uL (3.93-5.22); RDW 16.7 % (11.7-14.6); WBC 6.58 10^3/uL (4.4-10.8)
[2021-06-15 15:58] LABS: INR 1.3 (0.9-1.1)
[2021-06-15 16:05] LABS: ALT 46 U/L (14-59); AST 47 U/L (15-37); Albumin 3.5 g/dL (3.4-5.0); Alkaline Phosphatase 207 U/L (46-116); Anion Gap 7.4 mmol/L (3-11); BUN 35 mg/dL (7-18); Bilirubin, Total 2.7 mg/dL (0.2-1.0); C-Reactive Protein 0.69 mg/dL (0.0-0.3); CO2 25.6 mmol/L (21.0-32.0); CREATININE 1.6 mg/dL (0.55-1.02); Calcium 8.6 mg/dL (8.5-10.1); Chloride 101 mmol/L (98-107); Estimated GFR 33.59 (mL/min/1.73m2); Glucose 83 mg/dL (74-106); Potassium 3.5 mmol/L (3.5-5.1); Sodium 134 mmol/L (136-145); Total Protein 7.5 g/dL (6.4-8.2)
[2021-06-15 16:06] LABS: NT-proBNP 2670 pg/mL (<300)
[2021-06-15 16:08] LABS: Ammonia 88 umol/L (11-32)
[2021-06-15 16:26] LABS: Iron 172 ug/dL (50-170); Total Iron Binding Capacity 176 ug/dL (250-450); Transferrin Sat 98 % (15-50)
[2021-06-15 16:27] LABS: Ferritin 498 ng/mL (8-252)
[2021-06-16 10:08] VITALS: BP 99/58; PULSE 75; RESP 16; TEMP 36.1; O2SAT 98
== END 2021-06-15 15:35 | disposition home or self-care (01) ==
PROVIDERS: PCP Family Medicine; Visit Provider Surgery
PROC: 0W9G3ZZ Drainage of Peritoneal Cavity, Percutaneous Approach (ICD-10-PCS; CPT 49082; principal; 2021-06-15 12:00)
PROC: (CPT 32554; 2021-06-15 12:00)
DX: J90 Pleural effusion, not elsewhere classified (principal); R18.8 Other ascites; B19.20 Unspecified viral hepatitis C without hepatic coma
CPT/HCPCS: 32554; 49082; 80053; 71045; 71046; 82140; 82728; 83540; 83550; 83880; 85025; 85610; 86140

== ENCOUNTER 2021-06-21 03:01 | Outpatient (CLI) | payer MEDICARE, MEDICAID, SELFPAY ==
[2021-06-21 11:17] LABS: Source Nasal/Nares
[2021-06-21 18:57] LABS: COVID-19 PCR Negative (Negative)
== END 2021-06-21 03:02 | disposition home or self-care (01) ==
LOC: LBO 03:01
PROVIDERS: Surgery; PCP Family Medicine; Visit Provider Surgery
DX: Z20.822 Contact with and (suspected) exposure to COVID-19 (principal); Z01.818 Encounter for other preprocedural examination
CPT/HCPCS: 87635

== ENCOUNTER 2021-06-23 02:43 | Outpatient (CLI) | payer MEDICARE, MEDICAID, SELFPAY ==
[2021-06-23 12:43] LABS: Abs Immature Grans 0.02 10^3/uL (0.0-0.06); Absolute Basophil Count 0.06 10^3/uL (0.0-0.2); Absolute Eosinophil Count 0.21 10^3/uL (0.0-0.7); Absolute Lymphocyte Count 1.37 10^3/uL (1.2-3.4); Absolute Monocyte Count 0.93 10^3/uL (0.1-0.8); Absolute Neutrophil Count 3.33 10^3/uL (1.2-6.7); Eosinophils % 3.5; HCT 31.1 % (36.0-46.0); HGB 10.2 g/dL (11.2-15.7); Immature Grans % 0.3; Lymphocytes % 23.1; MCH 32.5 pg (27.0-33.0); MCHC 32.8 % (32.0-36.0); MPV 9.8 fL (8.0-11.0); Monocytes % 15.7; Neutrophils % 56.4; Nucleated RBC 0 %; Platelet Count 129 10^3/uL (130-400); RBC 3.14 10^6/uL (3.93-5.22); RDW 16.8 % (11.7-14.6); RDW-SD 61.4 fL; WBC 5.92 10^3/uL (4.4-10.8)
[2021-06-23 12:50] LABS: Ammonia 115 umol/L (11-32)
[2021-06-23 12:52] LABS: INR 1.3 (0.9-1.1); Prothrombin Time 13.3 sec (9.3-11.0)
[2021-06-23 13:57] LABS: ALT 45 U/L (14-59); AST 40 U/L (15-37); Albumin 2.8 g/dL (3.4-5.0); Alkaline Phosphatase 194 U/L (46-116); Anion Gap 8.7 mmol/L (3-11); BUN 38 mg/dL (7-18); Bilirubin, Total 2.3 mg/dL (0.2-1.0); C-Reactive Protein 0.57 mg/dL (0.0-0.3); CO2 22.3 mmol/L (21.0-32.0); CREATININE 2.1 mg/dL (0.55-1.02); Calcium 8.5 mg/dL (8.5-10.1); Chloride 103 mmol/L (98-107); Estimated GFR 24.54 (mL/min/1.73m2); Glucose 109 mg/dL (74-106); NT-proBNP 2650 pg/mL (<300); Potassium 3.7 mmol/L (3.5-5.1); Sodium 134 mmol/L (136-145); Total Protein 6.1 g/dL (6.4-8.2)
== END 2021-06-23 02:44 | disposition home or self-care (01) ==
LOC: LBO 02:44
PROVIDERS: PCP Family Medicine; Visit Provider Surgery
DX: B18.2 Chronic viral hepatitis C (principal); K74.60 Unspecified cirrhosis of liver; Z01.812 Encounter for preprocedural laboratory examination
CPT/HCPCS: 36415; 80053; 71046; 82140; 83880; 85025; 85610; 86140

== ENCOUNTER 2021-06-23 12:47 | Day surgery (SDC) | payer MEDICARE, MEDICAID, SELFPAY ==
--- NOTE | 2021-06-23 06:36 | PDOC.DSDIS_ITS ---
Discharge Plan Disposition Patient Disposition: HOME Condition: Good Discharge Details Reason For Visit: Thoracenthesis/parasenthesis Attending Provider: Stacy Buchanan Primary Care Provider: Dillon Muller [place] Meds and New Rx's Prescriptions: Continued loratadine [Claritin] 10 mg tablet 10 mg PO DAILY Qty: 30 RF: 12 metoprolol tartrate 25 mg tablet 50 mg PO BID RF: 0 spironolactone 50 mg tablet 100 mg PO TID RF: 0 torsemide 20 mg tablet 20 mg PO QID RF: 0 lactulose 20 gram/30 mL solution 30 g PO TID PRNRF: 0 famotidine 20 mg tablet 20 mg PO DAILY PRNRF: 0 nitroglycerin [Nitrostat] 0.4 mg tablet, sublingual 0.4 mg sublingual Q5M PRNRF: 0 Xifaxan 550 mg tablet 550 mg PO BID RF: 0 magnesium oxide 400 mg magnesium tablet 400 mg PO DAILY RF: 0 ribavirin 200 mg tablet 200 mg PO DAILY RF: 0 ledipasvir-sofosbuvir [Harvoni] 90-400 mg tablet 90 - 400 tab PO DAILY RF: 0 Discharge Instructions Activity:: Activity as Tolerated Shower/Bathe:: 24 hours Diet:: As Tolerated Discharge Orders Discharge Orders: Discharge Order (Routine); Ordered 06/23/21 Ordered By: Stacy Buchanan
--- NOTE | 2021-06-23 06:36 | W.PM.OP ---
Date of service: 06/23/21 Operative Note Operative Note Refer to Anesthesia Record
--- NOTE | 2021-06-23 06:38 | HPE_ITS ---
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 Abdomen is soft and not very distended. There was only 500 cc last week Plan: will discharge home. Will have her return next week for another CXR and see if she needs a thoracenthesis If she develops increased shortness of breath or abdominal pain she is to go to the ER or call the office. History of Present Illness Narrative: Erin is back for her weekly thoracenthesis and parasenthesis for her decompensated cirrhosis of the liver. She denies any new issues. She has had no fevers or chills. CXR looks good. Not a lot of fluid in the right chest. Review of Systems Cardiovascular Cardiovascular: Denies chest pain, Denies chest pain at rest, Denies irregular heart rhythm, Denies dyspnea and Denies dyspnea on exertion Respiratory Respiratory: Denies cough, Denies dyspnea and Denies dyspnea on exertion Gastrointestinal Gastrointestinal: Reports as per HPI Genitourinary Genitourinary: Denies dysuria, Denies urinary incontinence and Denies urinary urgency Endocrine Endocrine: Reports system reviewed and no additional complaints, except as documented Hematologic/Lymphatic Hematologic/Lymphatic: Denies easy bruising and Denies lymphadenopathy [facility] Medical History Advanced hepatic cirrhosis Hep C & ETOH Anxiety Atrial fibrillation with controlled ventricular rate Attention deficit hyperactivity disorder, 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 History of thoracentesis (~08/03/20) 08/10/20 08/21/20 History of thoracentesis (~08/31/20) Hx of tubal ligation S/P abdominal paracentesis (~08/03/20) Family History Mother Hypertensive disorder, systemic arterial Cancer Cervical Father Hypertensive disorder, systemic arterial Maternal Grandfather Diabetes Maternal Grandmother Cancer Ovarian Social History Smoking/Tobacco Use Status: Former Tobacco Use Quit Date: 09/18/18 Smoking risk assessment performed?: Yes Alcohol Intake: former Drug use: Never Substance use type: does not use Adopted: No Caregiver/Support person: No Foster care: No Household members: family Housing: house Number of Children: 4 number of grandchildren: 2 Communication Needs: None Do you need help understanding health information?: Often current occupation: Used to work for [employer] Current gender identity: female What is your relationship status?: How often do you talk on the phone with friends or family?: three or more times per week Panel score (0-1 are the most socially isolated patients): 2 What type of physical activity do you participate in: none Seatbelt use: always Drive intox or ride w/intox 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 Working smoke detector in home: Yes Fire extinguisher in home: Yes Carbon monox detector in home: Yes Do you feel safe at home: Yes Do you feel safe in your relationship?: Yes Meds Allergies and Home Medications Allergies Allergy/AdvReac Type Severity Reaction Status Date / Time amphetamine aspartate Allergy Severe Facial Verified 06/15/21 13:14 [From Adderall] Swelling, Blisters, Tongue Swelling, Rash, amphetamine sulfate Allergy Severe Facial Verified 06/15/21 13:14 [From Adderall] Swelling, Blisters, Tongue Swelling, Rash, dextroamphetamine saccharate Allergy Severe Facial Verified 06/15/21 13:14 [From Adderall] Swelling, Blisters, Tongue Swelling, Rash, dextroamphetamine sulfate Allergy Severe Facial Verified 06/15/21 13:14 [From Adderall] Swelling, Blisters, Tongue Swelling, Rash, Penicillins Allergy Intermediate Hives, Verified 06/15/21 13:14 Rash, Tongue Swelling codeine AdvReac Mild Constipatio Verified 06/15/21 13:14 n Home Medications Medication Instructions Recorded Confirmed Type Xifaxan 550 mg PO BID 04/18/20 06/15/21 History metoprolol tartrate 25 mg tablet 50 mg PO BID 10/12/20 06/15/21 History spironolactone 50 mg tablet 100 mg PO TID tab 01/21/21 06/15/21 History torsemide 20 mg tablet 20 mg PO QID tab 02/08/21 06/15/21 History lactulose 20 gram/30 mL oral 30 g PO TID PRN ml 03/03/21 06/15/21 History solution famotidine 20 mg tablet 20 mg PO DAILY PRN 04/05/21 06/15/21 History nitroglycerin 0.4 mg sublingual 0.4 mg SUBLINGUAL Q5M PRN 04/05/21 06/15/21 History tablet loratadine 10 mg tablet 10 mg PO DAILY #30 tab 04/27/21 06/15/21 Rx magnesium oxide 400 mg PO DAILY 05/25/21 06/15/21 History ledipasvir-sofosbuvir [Harvoni] 90 - 400 tab PO DAILY 06/08/21 06/15/21 History ribavirin 200 mg PO DAILY 06/08/21 06/15/21 History Exam Resp Effort & Inspection: normal respiratory effort Auscultation: clear to auscultation bilaterally Cardio Rate: regular rate Rhythm: regular rhythm Heart Sounds: no gallops, no murmurs and no rubs GI Palpation: soft, nontender and No ascites
--- NOTE | 2021-06-23 07:15 | DI.RAD_ITS ---
Exam(s) XR CHEST 2V PA LATERAL EXAM: XR CHEST 2V PA LATERAL CLINICAL HISTORY: PLEURAL EFFUSION, PRE THORACENTESIS,J90 TECHNIQUE: 2D digital imaging was performed of the chest. To images were obtained. PA and lateral views were obtained. COMPARISON: CR XR PORTABLE CHEST AP from 06/15/2021 CR XR CHEST 2V PA LATERAL from 06/15/2021 FINDINGS: MEDIASTINUM: Normal. HEART: Normal. PULMONARY VASCULATURE: Normal. LUNGS: Plate atelectasis in the right mid lung. PLEURAL SPACE: There is been reaccumulation of the right pleural effusion which now occupies a corner of the right hemithorax. No pneumothorax or left pleural effusion. BONE:Within normal limits for the patient's age. Stable scoliosis. OTHER FINDINGS:Normal. IMPRESSION: Interval reaccumulation of a small to moderate size right pleural effusion. DATA REPOSITORY: RADIATION DOSE DELIVERED:
== END 2021-06-23 12:48 | disposition home or self-care (01) ==
LOC: SUR 12:48
PROVIDERS: PCP Family Medicine; Visit Provider Surgery
DX: K70.31 Alcoholic cirrhosis of liver with ascites; J91.8 Pleural effusion in other conditions classified elsewhere; Z53.8 Procedure and treatment not carried out for other reasons; N18.4 Chronic kidney disease, stage 4 (severe); I48.91 Unspecified atrial fibrillation; B19.20 Unspecified viral hepatitis C without hepatic coma
CPT/HCPCS: 71046

== ENCOUNTER 2021-06-28 02:05 | Outpatient (CLI) | payer MEDICARE, MEDICAID, SELFPAY ==
[2021-06-28 12:32] LABS: Source Nasal/Nares
[2021-06-28 18:07] LABS: COVID-19 PCR Negative (Negative)
== END 2021-06-28 02:06 | disposition home or self-care (01) ==
LOC: LBO 02:05
PROVIDERS: PCP Family Medicine; Visit Provider Surgery
DX: Z20.822 Contact with and (suspected) exposure to COVID-19 (principal); Z01.818 Encounter for other preprocedural examination
CPT/HCPCS: 87635

== ENCOUNTER 2021-06-29 03:49 | Outpatient (CLI) | payer MEDICARE, MEDICAID, SELFPAY ==
[2021-06-29 10:27] LABS: Abs Immature Grans 0.03 10^3/uL (0.0-0.06); Absolute Basophil Count 0.04 10^3/uL (0.0-0.2); Absolute Eosinophil Count 0.13 10^3/uL (0.0-0.7); Absolute Lymphocyte Count 1.14 10^3/uL (1.2-3.4); Absolute Monocyte Count 0.69 10^3/uL (0.1-0.8); Absolute Neutrophil Count 3.42 10^3/uL (1.2-6.7); Basophils % 0.7; Eosinophils % 2.4; HCT 31.8 % (36.0-46.0); HGB 10.5 g/dL (11.2-15.7); Immature Grans % 0.6; Lymphocytes % 20.9; MCH 32.2 pg (27.0-33.0); MCV 97.5 fL (80-95); MPV 9.2 fL (8.0-11.0); Monocytes % 12.7; Neutrophils % 62.7; Nucleated RBC 0 %; Platelet Count 132 10^3/uL (130-400); RBC 3.26 10^6/uL (3.93-5.22); RDW 16.3 % (11.7-14.6); RDW-SD 58.9 fL; WBC 5.45 10^3/uL (4.4-10.8)
[2021-06-29 10:37] LABS: Ammonia 149 umol/L (11-32)
[2021-06-29 10:43] LABS: INR 1.3 (0.9-1.1); Prothrombin Time 13.3 sec (9.3-11.0)
[2021-06-29 10:49] LABS: ALT 41 U/L (14-59); AST 40 U/L (15-37); Albumin 2.7 g/dL (3.4-5.0); Alkaline Phosphatase 168 U/L (46-116); Anion Gap 8.3 mmol/L (3-11); BUN 45 mg/dL (7-18); Bilirubin, Total 3.3 mg/dL (0.2-1.0); C-Reactive Protein 0.41 mg/dL (0.0-0.3); CO2 22.7 mmol/L (21.0-32.0); CREATININE 2.5 mg/dL (0.55-1.02); Calcium 8.3 mg/dL (8.5-10.1); Chloride 99 mmol/L (98-107); Estimated GFR 20.07 (mL/min/1.73m2); Glucose 113 mg/dL (74-106); NT-proBNP 3581 pg/mL (<300); Potassium 3.9 mmol/L (3.5-5.1); Sodium 130 mmol/L (136-145); Total Protein 6.5 g/dL (6.4-8.2)
== END 2021-06-29 03:50 | disposition home or self-care (01) ==
LOC: LBO 03:49
PROVIDERS: PCP Family Medicine; Visit Provider Surgery
DX: K74.69 Other cirrhosis of liver (principal); B19.20 Unspecified viral hepatitis C without hepatic coma; J90 Pleural effusion, not elsewhere classified
CPT/HCPCS: 36415; 80053; 82140; 83880; 85025; 85610; 86140

== ENCOUNTER 2021-06-29 10:37 | Day surgery (SDC) | payer MEDICARE, MEDICAID, SELFPAY ==
--- NOTE | 2021-06-28 22:34 | W.PM.OP ---
Documented by User: Hazel Lindsey DO 06/29/21 12:50 Date of service: 06/29/21 Operative Note Operative Note DATE OF PROCEDURE: 06/29/21 PRE-OP DIAGNOSIS: cirrhosis PROCEDURE: thorocentisis & paracentisis SURGEON: Hazel Lindsey ANESTHESIA TYPE: Local By Surgeon Refer to Anesthesia Record Patient was transported to: same day Procedure Description: Pt is here today for thoracentesis for symptoms of shortness of breath. Chest x-ray was reviewed prior to beginning the procedure. Informed consent was obtained explaining risks and benefits of the procedure, including but not limited to bleeding, infection, pneumothorax, recurrence, complications of anesthesia, and other unforetold complications. PROCEDURE: The patient is brought to the procedure room and placed in the seated position. Ultrasound is used to localize the pocket on the [] chest. The area is marked and then prepped and draped in the usual sterile fashion using a ChloraPrep scrub solution. 5 cc's of 1% Lidocaine is used to anesthetize the T10 interspace. The small chai is made with a #11 blade. The needle and catheter is then inserted over the top of the rib, aspirating as it is inserted. The needle is then removed. The catheter is then hooked up to the Vacutainer system and 2850 cc's of straw-colored fluid is evacuated. The catheter is removed; pressure is held. Sterile compression dressing is applied. Portable chest x-ray shows no pneumothorax. Pt is given instructions in wound care, activity, medications, and warning signs: SOB, increasing in pain, chest pain, redness or temperature- if these occur, come to ED. Documented by User: KLEVER Bianchi 06/29/21 12:45 Operative Note Operative Note DATE OF PROCEDURE: 06/29/21 SURGEON: Hazel Lindsey FURNACE REPAIRER HELPER: Manuela Kessler ANESTHESIA TYPE: Local By Surgeon COMPLICATIONS: None Patient was transported to: same day Patient's condition: stable Procedure Description: The patient is brought to the procedure room and placed in the supine position. Placement chosen on top in the right upper quadrant. A time-out is done. Ultrasound is used to localize the pocket. The area is prepped and draped in the usual sterile fashion using a ChloraPrep scrub solution. 5 cc's of 1% Lidocaine with epinephrine is used for local anesthetization. The abdomen is punctured and the catheter is inserted. 1325 cc of light yellow fluid is evacuated today. The catheter is removed. Pressure dressing is applied. The patient tolerated the procedure well without complication. Pt is given instructions in wound care, activity, medications, and warning signs: SOB, increasing in pain, chest pain, redness or temperature- if these occur, come to ED.
--- NOTE | 2021-06-29 10:35 | DI.RAD_ITS ---
Exam(s) XR CHEST 2V PA LATERAL EXAM: XR CHEST 2V PA LATERAL CLINICAL HISTORY: PRE THORACENTESIS,PLEURAL EFFUSION,J90,ASCITES. TECHNIQUE: 2D digital imaging was performed. COMPARISON: CR,XR XR PORTABLE CHEST AP from 06/08/2021 CR XR CHEST 2V PA LATERAL from 06/23/2021 FINDINGS: Heart size unchanged. Mediastinum unchanged. The size of the right pleural effusion has further increased. Some atelectasis and infiltrate right lower lobe is noted. Left lung is clear. No pleural effusion on the left side. IMPRESSION: Increasing size right pleural effusion. DATA REPOSITORY: RADIATION DOSE DELIVERED:
[2021-06-29 11:03] VITALS: BP 128/80; PULSE 67; RESP 16; TEMP 36.2; O2SAT 100
[2021-06-29 12:40] VITALS: BP 104/68; PULSE 68; RESP 18; TEMP 36.3; O2SAT 96
[2021-06-29] MEDS: Sodium Bicarbonate 50 MEQ/50 ML VIAL (12:41)
--- NOTE | 2021-06-29 12:42 | PDOC.DSDIS_ITS ---
Discharge Plan Disposition Patient Disposition: HOME Condition: Good Discharge Details Reason For Visit: fluid removal from lung/abdomen Attending Provider: Hazel Lindsey Primary Care Provider: Dillon Muller [place] Meds and New Rx's Prescriptions: No Action loratadine [Claritin] 10 mg tablet 10 mg PO DAILY Qty: 30 RF: 12 metoprolol tartrate 25 mg tablet 50 mg PO BID RF: 0 spironolactone 50 mg tablet 100 mg PO TID RF: 0 torsemide 20 mg tablet 20 mg PO QID RF: 0 lactulose 20 gram/30 mL solution 30 g PO TID PRNRF: 0 famotidine 20 mg tablet 20 mg PO DAILY PRNRF: 0 nitroglycerin [Nitrostat] 0.4 mg tablet, sublingual 0.4 mg sublingual Q5M PRNRF: 0 Xifaxan 550 mg tablet 550 mg PO BID RF: 0 magnesium oxide 400 mg magnesium tablet 400 mg PO DAILY RF: 0 ribavirin 200 mg tablet 200 mg PO DAILY RF: 0 ledipasvir-sofosbuvir [Harvoni] 90-400 mg tablet 90 - 400 tab PO DAILY RF: 0 Discharge Instructions Additional Instructions: -Take your lactulose when you get home! 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
--- NOTE | 2021-06-29 13:02 | DI.RAD_ITS ---
Exam(s) XR PORTABLE CHEST AP EXAM: XR PORTABLE CHEST AP CLINICAL HISTORY: s/p thoro. TECHNIQUE: 2D digital imaging was performed. COMPARISON: CR XR CHEST 2V PA LATERAL from 06/29/2021 FINDINGS: Heart size is upper normal. The mediastinum is not widened. The size of the right pleural effusion has somewhat decreased. No obvious pneumothorax evident. No findings in the opposite-left hemithorax. IMPRESSION: No pneumothorax post right thoracentesis. Right pleural effusion has somewhat decreased in size. DATA REPOSITORY: RADIATION DOSE DELIVERED: All CT scans at this facility use at least one of these dose optimization techniques: automated exposure control; mA and/or kV adjustment per patient size (includes targeted e xams where dose is matched to clinical indication); or iterative reconstruction.
== END 2021-06-29 13:08 | disposition home or self-care (01) ==
PROVIDERS: PCP Family Medicine; Visit Provider Surgery
PROC: 0W9G3ZZ Drainage of Peritoneal Cavity, Percutaneous Approach (ICD-10-PCS; CPT 49082; principal; 2021-06-29 10:30)
PROC: (CPT 32554; 2021-06-29 10:30)
DX: J90 Pleural effusion, not elsewhere classified (principal); R18.8 Other ascites
CPT/HCPCS: 32554; 49082; 36415; 80053; 71045; 71046; 82140; 83880; 85025; 85610; 86140

== ENCOUNTER 2021-07-03 14:06 | Emergency (ER) | payer MEDICARE, MEDICAID, SELFPAY ==
[2021-07-03 14:12] VITALS: BP 102/87; PULSE 75; RESP 16; TEMP 36.2; O2SAT 100
--- NOTE | 2021-07-03 14:21 | W.ED.GENAD ---
Discharge Plan Disposition Patient Disposition: AGAINST MEDICAL ADVICE Discharge Details Clinical Impression: Cirrhosis of liver with ascites, Congestive heart failure, Pleural effusion, CKD (chronic kidney disease) stage 4, GFR 15-29 ml/min, Advanced hepatic cirrhosis, Acute hyponatremia Primary Care Provider: Dillon Muller ED Provider: Henny Felix Home Meds and New Rx's Prescriptions: Continued loratadine [Claritin] 10 mg tablet 10 mg PO DAILY Qty: 30 RF: 12 metoprolol tartrate 25 mg tablet 50 mg PO BID RF: 0 spironolactone 50 mg tablet 100 mg PO TID RF: 0 torsemide 20 mg tablet 20 mg PO QID RF: 0 lactulose 20 gram/30 mL solution 20 g PO TID PRNRF: 0 famotidine 20 mg tablet 20 mg PO DAILY PRNRF: 0 nitroglycerin [Nitrostat] 0.4 mg tablet, sublingual 0.4 mg sublingual Q5M PRNRF: 0 Xifaxan 550 mg tablet 550 mg PO BID RF: 0 magnesium oxide 400 mg magnesium tablet 400 mg PO DAILY RF: 0 ribavirin 200 mg tablet 200 mg PO DAILY RF: 0 ledipasvir-sofosbuvir [Harvoni] 90-400 mg tablet 90 - 400 tab PO DAILY RF: 0 Discharge Instructions Referrals: Emiliana Abbasi [ [facility] STAFF PHYSICIAN] - 1 day Medical Decision Making <Lilaольга Esquivelton - Last Filed: 07/03/21 16:18> 56-year-old female with a history of decompensated cirrhosis related to hepatitis C, hepatic encephalopathy, chronic hepatitis C, cardiomyopathy, congestive heart failure, atrial fibrillation and chronic kidney disease presents to the ER with increased confusion, nausea, lack of appetite and feeling nervous since taking Harvoni and Ribavarin for hep C. She sees Dr. Abbasi at [facility] and has had a recent thoracentesis done here on June 29 with removal of approximately 2500 cc of fluid. She gets regular Paracentesis done at [facility] per patient report. Patient states that she is given her medications by her . And has been taking her medications as directed. On initial exam she is alert and oriented x2, no focal neuro deficits noted, she does appear jaundiced does have a distended abdomen [facility] records reviewed. Did review a telephone consult from 12:58 AM today. Patient spoke with Dr. MAGUIRE who is concerned for hepatic encephalopathy she recommended to up her lactulose to three times a day for a goal of 3-4 bowel movements over the next 24 to 48 hours. She instructed patient if she had worsening confusion go to the nearest ER for broader work-up. Patient has had Lactulose 30ml at 0500 am and at 1000 am per report. Critical sodium result of 123 received from lab., Chloride ninety-one potassium 3.8, BUN fifty creatinine 2.5 GFR is 20.0, calcium 8.4 bilirubin is 3.9 AST 39 ALT 43 alk phos 124 proBNP is 4430 albumin is 2 follow-up from elevated follow-up with her she can wait for the results and we can see her doctor wait for the lab results. Making sure is getting her her department you to get your paperwork the right knee okay for follow healthy pink on monitor blood pressure Your labs indicate I see the lab done with 6 1552: Spoke with Kiyaumair who is on for general surgery, She started was able to personally review the CT images of the chest and abdomen. She is not credentialed to do thoracentesis or paracentesis Patient is requesting to leave. I did discuss the low sodium and the recommendation for admission and/or at least consultation with GI prior to them leaving the department. Patient and verbalized understanding. feels comfortable taking care of patient at home. At this time head chest and abdomen CTs are pending. states that they do have an appointment for the recurring thoracentesis/paracentesis on Monday. I am concerned for encephalopathy and metabolic encephalopathy causing patient's increased confusion. At this time I did discuss patient case and details with oncoming provider KLEVER Howard. Medical Records Medical records reviewed: Yes I reviewed the patient's medical records. Medical records narrative: Medication administration records reviewed and surgical records reviewed on June 15 of this year patient had a thoracentesis with 1850 cc removed and a paracentesis with 500 cc removed. On June 29 of this year she had a thoracentesis only with 2850 cc removed. Last IV albumin of 25 gm infusion June 08. <KLEVER Howard - Last Filed: 07/03/21 17:25> This is a very complex patient who is presenting with waxing and waning confusion although upon discussion after receiving patient in signout she is now alert and oriented x3 She is ambulatory around the room, is alert and oriented and of decisional capacity Patient has notable hyponatremia and is on 20 mg of torsemide for her cirrhosis She does have fairly significant ascites and her diagnostic labs are otherwise similar to prior evaluation Her ammonia is 123 which actually decreased, reportedly she did not take her lactulose for several days Had a long discussion with patient and and they do understand the risk associated with hyponatremia including and seizures including cardiac abnormalities They understand that he would like to patient for further evaluation and observation This patient were to be admitted hypertonic saline or albumin may be initiated if she remains persistently low She may also need reduction of her torsemide although this is a very complex patient and admission to the hospital allowFurther evaluate whether this is progression of her hepatitis versus hypoalbuminemia Her last sodium several days ago was 130 Patient and are leaving AGAINST MEDICAL ADVICE, they are aware that her CT chest, abdomen, pelvis has not returned at time of discharge They are also aware that patient is at risk for significant further deterioration and even All discussions were had with patient and her CT brain does not show acute abnormality in her urinalysis clear We are unable at this time to hold patient against her will as she and her are of decisional capacity at time of my assessment She is discharged home in care of her ambulatory She is also aware that she needs close outpatient reassessment and is urged to be reevaluated at her earliest ability HPI <Lila Enriquez - Last Filed: 07/03/21 16:18> General Mode of arrival: ambulatory. Date/Time Provider Initiated Documentation: 07/03/21 14:09. Information obtained by: patient, RN notes reviewed and old records reviewed. HPI Narrative: 56-year-old female with a history of decompensated cirrhosis related to hepatitis C, hepatic encephalopathy, chronic hepatitis C, cardiomyopathy, congestive heart failure, atrial fibrillation and chronic kidney disease presents to the ER with increased confusion, nausea, lack of appetite and feeling nervous since taking Harvoni and Ribavarin for hep C. She sees Dr. Abbasi at [facility] and has had a recent thoracentesis done here on June 29 with removal of approximately 2500 cc of fluid. She gets regular Paracentesis done at [facility] per patient report. Patient states that she is given her medications by her . And has been taking her medications as directed. On initial exam she is alert and oriented x2, no focal neuro deficits noted, she does appear jaundiced does have a distended abdomen Related Data Home Medications Medication Instructions Recorded Confirmed Xifaxan 550 mg PO BID 04/18/20 07/03/21 metoprolol tartrate 25 mg tablet 50 mg PO BID 10/12/20 07/03/21 spironolactone 50 mg tablet 100 mg PO TID tab 01/21/21 07/03/21 torsemide 20 mg tablet 20 mg PO QID tab 02/08/21 07/03/21 lactulose 20 gram/30 mL oral 20 g PO TID PRN ml 03/03/21 07/03/21 solution famotidine 20 mg tablet 20 mg PO DAILY PRN 04/05/21 07/03/21 nitroglycerin 0.4 mg sublingual 0.4 mg SUBLINGUAL Q5M PRN 04/05/21 07/03/21 tablet loratadine 10 mg tablet 10 mg PO DAILY #30 tab 04/27/21 07/03/21 magnesium oxide 400 mg PO DAILY 05/25/21 07/03/21 ledipasvir-sofosbuvir [Harvoni] 90 - 400 tab PO DAILY 06/08/21 07/03/21 ribavirin 200 mg PO DAILY 06/08/21 07/03/21 Previous Rx's Medication Instructions Recorded loratadine 10 mg tablet 10 mg PO DAILY #30 tab 04/27/21 Allergies Allergy/AdvReac Type Severity Reaction Status Date / Time amphetamine aspartate Allergy Severe Facial Verified 07/03/21 15:10 [From Adderall] Swelling, Blisters, Tongue Swelling, Rash, amphetamine sulfate Allergy Severe Facial Verified 07/03/21 15:10 [From Adderall] Swelling, Blisters, Tongue Swelling, Rash, dextroamphetamine saccharate Allergy Severe Facial Verified 07/03/21 15:10 [From Adderall] Swelling, Blisters, Tongue Swelling, Rash, dextroamphetamine sulfate Allergy Severe Facial Verified 07/03/21 15:10 [From Adderall] Swelling, Blisters, Tongue Swelling, Rash, Penicillins Allergy Intermediate Hives, Verified 07/03/21 15:10 Rash, Tongue Swelling codeine AdvReac Mild Constipatio Verified 07/03/21 15:10 n General Stated Complaint: GenMedical JOE: 3 Review of Systems <Lila Enriquez - Last Filed: 07/03/21 16:18> Narrative: Constitutional: Negative for weight loss, alert and oriented x 2, well groomed, normal body habitus, appears chronically ill, non-toxic HEENT: Denies trauma, nasal discharge, sore throat, trouble swallowing. Positive MERINO, blurry vision but states its from the new medication Chest: Denies chest pain, Respiratory: Denies Shortness of breath, cough, hemoptysis. History of weekly thoracentesis and pleural effusions. GI: Denies vomiting, constipation. Positive abdominal pain, nausea, decreased appetite and loose stools. Patient did take two doses of lactulose today per her report. History of chronic hepatitis C : Denies dysuria, hematuria, flank pain, rectal bleeding. Neuro: Denies dizziness, weakness, syncope, or facial numbness. Reports feeling shaky, anxious Hematologic: Denies hair loss. PFSH <Lila Enriquez - Last Filed: 07/03/21 16:18> Medical History Advanced hepatic cirrhosis Hep C & ETOH Anxiety Atrial fibrillation with controlled ventricular rate Attention deficit hyperactivity disorder, 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 History of thoracentesis (~08/03/20) 08/10/20 08/21/20 History of thoracentesis (~08/31/20) Hx of tubal ligation S/P abdominal paracentesis (~08/03/20) Family History Mother Hypertensive disorder, systemic arterial Cancer Cervical Father Hypertensive disorder, systemic arterial Maternal Grandfather Diabetes Maternal Grandmother Cancer Ovarian Social History Smoking/Tobacco Use Status: Former Tobacco Use Quit Date: 09/18/18 Smoking risk assessment performed?: Yes Alcohol Intake: former Drug use: Never Substance use type: does not use Adopted: No Caregiver/Support person: No Foster care: No Household members: family Housing: house Number of Children: 4 number of grandchildren: 2 Communication Needs: None Do you need help understanding health information?: Often current occupation: Used to work for [employer] Current gender identity: female What is your relationship status?: How often do you talk on the phone with friends or family?: three or more times per week Panel score (0-1 are the most socially isolated patients): 2 What type of physical activity do you participate in: none Seatbelt use: always Drive intox or ride w/intox 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 Appears stated age. Jaundice, distended abdomen. Head: Normocephalic, no trauma. Eyes: Pupils PERRLA, scleral icterus, Red reflex noted, EOM's intact. Eyelids symmetrical without lesions, discharge, or swelling. ENT: Bilateral TM's WNL, External ear normal to inspection, no mastoid TTP, swelling, or erythema, Nasal turbinates WNL, no nasal discharge. Normal dentition, Posterior pharynx WNL, no exudate. Chest: irregular rate, Normal S1, S2, distal pulses intact. Sutures noted to the right posterior thoracic chest wall no surrounding erythema or induration. Resp: Lungs , no wheezes, Rhonchi noted at bases greater on right Abd: Distended, tinkling bowel sounds, large bandage noted to the right side of abdomen from paracentesis which patient reports are done on a weekly basis, no erythema or induration noted. Musculoskeletal: , 5/5 strength to all four extremities. Skin: No suspicious rashes or lesions. Capillary refill less than 2 sec. Neurologic: Cranial nerves II-XII intact. Alert and oriented x 2. Hematologic/Lymphatic: Purple contusion noted to right forearm, no lymphadenopathy. Course <Lila Esquivelton - [facility] Filed: 07/03/21 16:18> Vital Signs Vital signs: Vital Signs Temperature 36.2 C L 10/16/21 14:12 Pulse 75 07/03/21 14:12 Respiratory Rate 16 07/03/21 14:12 Blood Pressure 102/87 07/03/21 14:12 Pulse Oximetry 100 07/03/21 14:12 Temperature 36.2 C L 07/03/21 14:12 Temperature Source Tympanic 07/03/21 14:12 Pulse 75 07/03/21 14:12 Respiratory Rate 16 07/03/21 14:12 Respiratory Effort Non-Labored 07/03/21 14:16 Blood Pressure 102/87 07/03/21 14:12 Blood Pressure Position Sitting 07/03/21 14:12 Pulse Oximetry 100 07/03/21 14:12 Pain Level 0 07/03/21 14:12 Sign Out <Lila Enriquez - Last Filed: 07/03/21 16:18> Sign Out Data: Sign Out Comment: Pending Head, Chest, Abd CT and dispo. (AMA) Last updated by Lila Enriquez at 07/03/21 16:20
[2021-07-03 14:25] VITALS: RESP 18
--- NOTE | 2021-07-03 14:45 | DI.CT_ITS ---
Exam(s) CT HEAD WO EXAM: CT HEAD WO CLINICAL HISTORY: Confusion, MERINO, hx hepatic encephalopathy. TECHNIQUE: Imaging Protocol: Axial computed tomography images with coronal and sagittal reformatted images were created and reviewed COMPARISON: CT CT HEAD WO from 07/08/2020 FINDINGS: The examination is limited due to patient motion artifact. Ventricles and Extra axial spaces: Normal in size and morphology for the patient's age. Hemorrhage: None. Cerebral parenchyma: Normal. Midline shift: None. Brainstem/Cerebellum: Normal. Calvarium: Normal. Visualized Paranasal sinuses/Mastoids: Clear. Soft Tissues: Unremarkable. IMPRESSION: No acute intracranial process. RADIATION DOSE DELIVERED: 697.71mGy.cm Total DLP DATA REPOSITORY: All CT scans at this facility are submitted to the National Radiology Data Registry (NRDR) Dose Index Registry (DIR) with the [employer] (ACR). RADIATION OPTIMIZATION: All CT scans at this facility use at least one of these dose optimization te chniques: automated exposure control; mA and/or kV adjustment per patient size (includes targeted exa ms where dose is matched to clinical indication); or iterative reconstruction.
--- NOTE | 2021-07-03 14:45 | RT.EKG_ITS ---
APPROVED REPORT Exam: Resting ECG Reason for Exam: Steffany A-rochelle Patient Location: E HR:77 bpm ECG Measurements Heart Rate 77 AXIS CO [id number] P [id number] QRSd 155 QRS 92 QT 435 T 5 QTc 492 Conclusion Atrial fibrillation. Paired ventricular premature complexes...sequence of 2 V complexes Nonspecific intraventricular conduction delay..
--- NOTE | 2021-07-03 14:45 | DI.CT_ITS ---
Exam(s) CT CHEST/ABD/PEL WO EXAM: CT CHEST/ABD/PEL WO CLINICAL HISTORY: Abd pain, R/O Pleural effusions Ascitis, TECHNIQUE: Imaging Protocol: Axial computed tomography images with coronal and sagittal reformatted images were created and reviewed CONTRAST MATERIAL: Imaging Protocol: Axial computed tomography images with coronal and sagittal refo rmatted images were created and reviewed. COMPARISON: CT CHEST FOR PULMONARY EMBOLUS from 04/22/2013 FINDINGS: CHEST: Tracheobronchial tree: Patent where visualized. Mediastinum and Sabi: No dominant adenopathy or fluid collection. Pulmonary parenchyma: There is again seen a large right pleural effusion and subjacent atelectasis. There is a 2 mm noncalcified pulmonary nodule in the left upper lobe. Pleura: No left pleural effusion. Large right pleural effusion. Heart: The heart is not dilated. No coronary artery calcifications are seen. No pericardial effusion. Aorta: Thoracic aorta non-dilated. Mild atherosclerosis. Lymph nodes: Within normal limits. Bones:Within normal limits for the patient's age. Soft tissues: Unremarkable. ABDOMEN: Liver: The liver has a lobulated appearance with a large left lobe. The finding is most suspicious f or hepatic cirrhosis. There are several scattered hypodensities in the liver. They are not well mervin racterized on this non-contrast examination. No measurable mass. Gallbladder and Biliary Tract: Cholelithiasis. No biliary ductal dilatation. Pancreas: Normal density, no abnormal calcifications or inflammatory process. Spleen: Normal. Adrenals: No masses seen. Kidneys: Normal size, contour and axis. Left nephrolithiasis. No hydronephrosis. No masses seen. Abdominal Aorta: Abdominal portion non-dilated. Mild atherosclerosis. Bowel: No obstruction or bowel wall thickening. No evidence of appendicitis. Peritoneal Cavity: There is a moderately large amount of abdominal pelvic ascites. No free air. Lymph Nodes: Within normal limits. Bones: Within normal limits for the patient's age. Soft Tissues: There is edema seen in the soft tissues of the anterior abdominal wall. PELVIS: Bladder: Symmetric distention, no gross wall thickening. Reproductive Organs: Unremarkable as visualized. Lymph Nodes: Within normal limits. Bones: Within normal limits. IMPRESSION: 1. Large right pleural effusion and subjacent atelectasis. 2. Findings suggestive of hepatic cirrhosis. The in the anterior abdominal wall consistent with anas arca. 3. Cholelithiasis and left nephrolithiasis. RADIATION DOSE DELIVERED: 1,118.08mGy.cm Total DLP 1,118.08mGy.cm Total DLP DATA REPOSITORY: All CT scans at this facility are submitted to the National Radiology Data Registry (NRDR) Dose Index Registry (DIR) with the [employer] (ACR). RADIATION OPTIMIZATION: All CT scans at this facility use at least one of these dose optimization te chniques: automated exposure control; mA and/or kV adjustment per patient size (includes targeted exa ms where dose is matched to clinical indication); or iterative reconstruction.
[2021-07-03 15:07] LABS: Abs Immature Grans 0.05 10^3/uL (0.0-0.06); Absolute Basophil Count 0.05 10^3/uL (0.0-0.2); Absolute Eosinophil Count 0.21 10^3/uL (0.0-0.7); Absolute Monocyte Count 1.01 10^3/uL (0.1-0.8); Absolute Neutrophil Count 4.52 10^3/uL (1.2-6.7); Basophils % 0.7; HCT 30.3 % (36.0-46.0); HGB 10.4 g/dL (11.2-15.7); Immature Grans % 0.7; Lymphocytes % 15.9; MCH 32.4 pg (27.0-33.0); MCHC 34.3 % (32.0-36.0); MCV 94.4 fL (80-95); MPV 9.9 fL (8.0-11.0); Monocytes % 14.6; Neutrophils % 65.1; Nucleated RBC 0 %; Platelet Count 160 10^3/uL (130-400); RBC 3.21 10^6/uL (3.93-5.22); RDW 15.1 % (11.7-14.6); RDW-SD 52.3 fL; WBC 6.94 10^3/uL (4.4-10.8)
[2021-07-03 15:13] LABS: Ammonia 123 umol/L (11-32)
[2021-07-03 15:21] LABS: ALT 43 U/L (14-59); AST 39 U/L (15-37); Albumin 2.6 g/dL (3.4-5.0); Alkaline Phosphatase 124 U/L (46-116); Anion Gap 9.8 mmol/L (3-11); BUN 50 mg/dL (7-18); Bilirubin, Total 3.9 mg/dL (0.2-1.0); CO2 22.2 mmol/L (21.0-32.0); CREATININE 2.5 mg/dL (0.55-1.02); Calcium 8.4 mg/dL (8.5-10.1); Chloride 91 mmol/L (98-107); Estimated GFR 20.07 (mL/min/1.73m2); Glucose 102 mg/dL (74-106); NT-proBNP 4430 pg/mL (<300); Potassium 3.8 mmol/L (3.5-5.1); Total Protein 6.1 g/dL (6.4-8.2)
[2021-07-03 15:32] LABS: Bilirubin Negative (Negative); Blood Negative (Negative); Clarity Clear (Clear); Glucose Negative (Negative); Ketones Negative (Negative); Leukocyte Esterase Negative (Negative); Nitrite Negative (Negative); Specific Gravity 1.015 (1.005-1.025); Urobilinogen 0.2 EU/dL (Up TO 0.2); pH 6.5 (5-8)
[2021-07-03 15:34] LABS: INR 1.3 (0.9-1.1); PTT Activated 33.4 sec (21.0-27.5); Prothrombin Time 12.7 sec (9.3-11.0)
[2021-07-03 15:36] LABS: Sodium 123 mmol/L (136-145)
[2021-07-03 15:39] LABS: ETHANOL BLOOD < 3.0 mg/dL (<3)
[2021-07-03 15:53] VITALS: BP 116/83; PULSE 72; TEMP 36.2; O2SAT 100
--- NOTE | 2021-07-03 16:24 | DI.VRAD_ITS ---
PROCEDURE INFORMATION: Exam: CT Head Without Contrast Exam date and time: 07/03/2021 2:49 PM Age: 56 years old Clinical indication: Other: Confusion, MERINO, HX hepatic encephalopathy TECHNIQUE: Imaging protocol: Computed tomography of the head without contrast. COMPARISON: CT HEAD WO 07/08/2020 8:05 PM FINDINGS: Brain: Normal. No hemorrhage. Unremarkable white matter. No mass effect. Cerebral ventricles: No ventriculomegaly. Paranasal sinuses: Visualized sinuses are unremarkable. No fluid levels. Mastoid air cells: Visualized mastoid air cells are well aerated. Bones/joints: Unremarkable. No acute fracture. Soft tissues: Unremarkable. Other findings: Slight motion noted. IMPRESSION: No evidence for acute intracranial abnormality. Dictated and Authenticated by: Naomi Craft MD. Ordering:ANNY Sharp MD
--- NOTE | 2021-07-03 16:50 | DI.VRAD_ITS ---
PROCEDURE INFORMATION: Exam: CT Chest Without Contrast; Diagnostic Exam date and time: 07/03/2021 2:49 PM Age: 56 years old Clinical indication: Other: Abd pain, R/O pleural effusions ascitis, TECHNIQUE: Imaging protocol: Diagnostic computed tomography of the chest without contrast. COMPARISON: CR XR PORTABLE CHEST AP 06/29/2021 12:55 PM FINDINGS: Limitations: Full evaluation is suboptimal without intravenous contrast. Thyroid: Heterogeneous appearance of the thyroid gland with focal left thyroid calcification. No dominant nodule is identified. Lungs: Linear densities of the right lung, likely reflecting atelectasis. Pleural spaces: Large right pleural effusion. Heart: Unremarkable. No cardiomegaly. No pericardial effusion. Aorta: Unremarkable. No aortic aneurysm. Lymph nodes: Unremarkable. No enlarged lymph nodes. Bones/joints: Dextroscoliosis of the thoracic spine. No acute osseous abnormality is identified. Soft tissues: Unremarkable. Other findings: Mild hypodensity of the blood pool, concerning for anemia. IMPRESSION: 1. Large right pleural effusion. 2. Hypodensity of the blood pool concerning for anemia. PROCEDURE INFORMATION: Exam: CT Abdomen And Pelvis Without Contrast Exam date and time: 07/03/2021 2:49 PM Age: 56 years old Clinical indication: Other: Abd pain, R/O pleural effusions ascitis, TECHNIQUE: Imaging protocol: Computed tomography of the abdomen and pelvis without contrast. COMPARISON: CR XR PORTABLE CHEST AP 06/29/2021 12:55 PM FINDINGS: Limitations: Full evaluation is suboptimal without intravenous contrast. Liver: Heterogeneous nodular appearance of the liver consistent with cirrhosis. No gross focal mass is identified. Gallbladder and bile ducts: Cholelithiasis. Pancreas: Normal. No ductal dilation. Spleen: Normal. No splenomegaly. Adrenal glands: Normal. No mass. Kidneys and ureters: Tiny nonobstructive left lower pole renal calculus. No evidence of hydronephrosis or hydroureter. Stomach and bowel: Unremarkable. No obstruction. No mucosal thickening. Appendix: No evidence of appendicitis. Intraperitoneal space: Moderate ascites. Diffuse mesenteric edema. Vasculature: Minimal atherosclerotic calcification of the abdominal aorta. Varices at the level of the stomach, esophagus, and falciform ligament consistent with portal venous hypertension. Lymph nodes: Unremarkable. No enlarged lymph nodes. Urinary bladder: Unremarkable as visualized. Reproductive: Unremarkable as visualized. Bones/joints: Levo rotoscoliosis of the lumbar spine with degenerative changes of the lower lumbar spine. No acute osseous abnormality is identified. Soft tissues: Diffuse edema of the anterior abdominal wall and pannus. IMPRESSION: 1. Moderate ascites with diffuse mesenteric edema. Along with edema of the anterior abdominal wall, the findings are concerning for anasarca. 2. Abnormal appearance of the liver consistent with cirrhosis. Upper abdominal varices are suggestive of portal venous hypertension. 3. Cholelithiasis. 4. Tiny nonobstructive left lower pole renal calculus. Dictated and Authenticated by: Ta Laech MD. Ordering:ANNY Sharp MD
== END 2021-07-03 16:27 | disposition left against medical advice (07) ==
PROVIDERS: Registered Nurse Emergency; Emergency Provider Physician Assistant; PCP Family Medicine
DX: K70.31 Alcoholic cirrhosis of liver with ascites (principal); B18.2 Chronic viral hepatitis C; N18.4 Chronic kidney disease, stage 4 (severe); I50.9 Heart failure, unspecified; J90 Pleural effusion, not elsewhere classified; E87.6 Hypokalemia; Z53.29 Procedure and treatment not carried out because of patient's decision for other reasons
CPT/HCPCS: 36415; 71250; 80053; 81025; 93005; 99284; 70450; 74176; 80320; 81003; 82140; 83880; 85025; 85610; 85730; 93010; 99285

== ENCOUNTER 2021-07-04 10:44 | Observation (INO) | payer MEDICARE, MEDICAID, SELFPAY ==
[2021-07-04] VITALS (47 sets, daily range): BP systolic 79–131; BP diastolic 54–109; PULSE 66–107; RESP 11–24; TEMP 35.9–36.4; O2SAT 96–100
[2021-07-04 12:07] LABS: Abs Immature Grans 0.04 10^3/uL (0.0-0.06); Absolute Basophil Count 0.06 10^3/uL (0.0-0.2); Absolute Eosinophil Count 0.15 10^3/uL (0.0-0.7); Absolute Lymphocyte Count 0.87 10^3/uL (1.2-3.4); Absolute Monocyte Count 0.78 10^3/uL (0.1-0.8); Basophils % 0.7; Eosinophils % 1.8; HCT 32.4 % (36.0-46.0); HGB 11.1 g/dL (11.2-15.7); Immature Grans % 0.5; Lymphocytes % 10.6; MCH 32.6 pg (27.0-33.0); MCHC 34.3 % (32.0-36.0); MPV 9.7 fL (8.0-11.0); Monocytes % 9.5; Neutrophils % 76.9; Nucleated RBC 0 %; Platelet Count 187 10^3/uL (130-400); RBC 3.41 10^6/uL (3.93-5.22); RDW 15.2 % (11.7-14.6); RDW-SD 52.5 fL
[2021-07-04] MEDS: OLANZapine 10 MG VIAL 5 MG IM (12:09)
[2021-07-04 12:13] LABS: Ammonia 45 umol/L (11-32)
[2021-07-04 12:32] LABS: ALT 54 U/L (14-59); AST 52 U/L (15-37); Albumin 3.1 g/dL (3.4-5.0); Alkaline Phosphatase 160 U/L (46-116); Anion Gap 11.4 mmol/L (3-11); BUN 50 mg/dL (7-18); Bilirubin, Total 4.5 mg/dL (0.2-1.0); CO2 21.6 mmol/L (21.0-32.0); CREATININE 2.6 mg/dL (0.55-1.02); Calcium 9.1 mg/dL (8.5-10.1); Chloride 91 mmol/L (98-107); Estimated GFR 19.18 (mL/min/1.73m2); Glucose 115 mg/dL (74-106); Magnesium 2.3 mg/dL (1.8-2.4); NT-proBNP 4812 pg/mL (<300); Potassium 3.5 mmol/L (3.5-5.1); Total Protein 7.3 g/dL (6.4-8.2)
[2021-07-04 12:33] LABS: INR 1.2 (0.9-1.1); Prothrombin Time 12.4 sec (9.3-11.0)
[2021-07-04 12:33] LABS: Troponin I < 0.05 ng/mL (<0.06)
[2021-07-04 12:34] LABS: Sodium 124 mmol/L (136-145)
--- NOTE | 2021-07-04 12:45 | NUR.NOTE ---
pt pacing in the room arguing with any one that interacts with her . she is steady on her feet . im leaving ,im not staying here for hours Nursing Note:
[2021-07-04] MEDS: OLANZapine 10 MG VIAL 2.5 MG IM (13:26)
--- NOTE | 2021-07-04 13:27 | NUR.NOTE ---
pt did fall asleep on the bed. her was tearful and went home to check on the dogs . pt is on the monitor and resting . Nursing Note:
[2021-07-04] MEDS: ALBUMIN HUMAN 25 GM/100 ML BTL IV (14:14)
--- NOTE | 2021-07-04 14:23 | W.ED.GENAD ---
Discharge Plan Disposition Condition: Fair Discharge Details Chief Complaint: GenMedical Admit Date/Time: 07/04/21 16:03 Admit Provider: Jesus Ramirez Attending Provider: Jesus Ramirez Primary Care Provider: Dillon Muller ED Provider: Henny Felix Discharge Data Discharge Date/Time-TO BE ENTERED AT DEPARTURE: 07/04/21 19:20 Medical Decision Making Patient is quite complex with numerous comorbidities, she has a BNP of 4800, sodium of 124, bili of 4.5, INR 1.2, ammonia actually decreased from 1 23-45 which is reassuring Patient is not competent to make decisions and has been no longer feels comfortable with her at home although he is DPOA and did consent to leaving AMA yesterday, she no longer feels as though patient is stable for home discharge He is requesting that we admit patient at this time, patient is adamantly refusing assessment, however after several assessment is determined that she is not competent to make decision consents to all treatments provided in the emergency room Secondary to anxiety and agitation, patient agreed to Zyprexa Does not use as restraint medication more for patient comfort She is resting comfortably after this was stable vitals I did consider risk-benefit with the medicine She does have QTC prolongation for 9 days I did not initiate Haldol nor antibiotic for possible SBP, this was after discussion with At the [facility], [facility] who recommends 50 g of albumin in the emergency room followed by albumin post paracentesis tomorrow She recommends diagnostic paracentesis, however after ultrasound, given that she has drainage from her prior paracentesis site, there is no drainable collection at this time Urine sodium will need to be ordered and the recommendation was to hold patient spironolactone and torsemide Boniva is recommended to be continued in addition to lactulose and Xifaxan Patient will be admitted at this time, she is resting comfortably in room is DPOA and he consents to treatment and admission at this time She will likely need palliative care consultation at the discretion of the admitting hospitalist, Dr. Espinoza\ I did review patient CT head, CT chest abdomen and pelvis from yesterday CT head does not show evidence of acute pathology, CT chest abdomen and pelvis shows large pleural effusion with significant ascites and mesenteric ischemia consistent with anasarca and patient's prior evaluation, this was also discussed with GI at [facility] General Mode of arrival: ambulatory. Date/Time Provider Initiated Documentation: 07/04/21 10:47. Limitations to Documentation: no limitations. Information obtained by: patient. HPI Narrative: 56-year-old female with complex medical history with hyponatremia, decompensated hepatitis C liver cirrhosis, cardiomyopathy, CHF, pleural effusion presents with report of intermittent alteration in mental status. Patient was evaluated in the emergency room yesterday with thorough evaluation with CT scan of head, chest abdomen and pelvis and diagnostic labs. She was told that she was hyponatremic and recommendation for admission. Patient left AGAINST MEDICAL ADVICE, however no longer feels that he is able to manage this patient. He brought her back for reassessment. He denies any new trauma or injury. He has been very weak and distantly confused since discharge. He has been administering her lactulose that she has been having bowel movements at home reportedly. She is not drinking alcohol reportedly. Related Data Home Medications Medication Instructions Recorded Confirmed Xifaxan 550 mg PO BID 04/18/20 07/04/21 metoprolol tartrate 25 mg tablet 50 mg PO BID 10/12/20 07/04/21 spironolactone 50 mg tablet 100 mg PO TID tab 01/21/21 07/04/21 torsemide 20 mg tablet 20 mg PO QID tab 02/08/21 07/04/21 lactulose 20 gram/30 mL oral 20 g PO TID PRN ml 03/03/21 07/04/21 solution famotidine 20 mg tablet 20 mg PO DAILY PRN 04/05/21 07/04/21 nitroglycerin 0.4 mg sublingual 0.4 mg SUBLINGUAL Q5M PRN 04/05/21 07/04/21 tablet loratadine 10 mg tablet 10 mg PO DAILY #30 tab 04/27/21 07/04/21 magnesium oxide 400 mg PO DAILY 05/25/21 07/04/21 ledipasvir-sofosbuvir [Harvoni] 90 - 400 tab PO DAILY 06/08/21 07/04/21 ribavirin 200 mg PO DAILY 06/08/21 07/04/21 Previous Rx's Medication Instructions Recorded loratadine 10 mg tablet 10 mg PO DAILY #30 tab 04/27/21 Allergies Allergy/AdvReac Type Severity Reaction Status Date / Time amphetamine aspartate Allergy Severe Facial Verified 07/04/21 11:03 [From Adderall] Swelling, Blisters, Tongue Swelling, Rash, amphetamine sulfate Allergy Severe Facial Verified 07/04/21 11:03 [From Adderall] Swelling, Blisters, Tongue Swelling, Rash, dextroamphetamine saccharate Allergy Severe Facial Verified 07/04/21 11:03 [From Adderall] Swelling, Blisters, Tongue Swelling, Rash, dextroamphetamine sulfate Allergy Severe Facial Verified 07/04/21 11:03 [From Adderall] Swelling, Blisters, Tongue Swelling, Rash, Penicillins Allergy Intermediate Hives, Verified 07/04/21 11:03 Rash, Tongue Swelling codeine AdvReac Mild Constipatio Verified 07/04/21 11:03 n General Stated Complaint: GenMedical JOE: 2 Review of Systems All systems reviewed & are unremarkable except as noted in HPI and below PFSH Medical History Advanced hepatic cirrhosis Hep C & ETOH Anxiety Atrial fibrillation with controlled ventricular rate Attention deficit hyperactivity disorder, 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 History of thoracentesis (~08/03/20) 08/10/20 08/21/20 History of thoracentesis (~08/31/20) Hx of tubal ligation S/P abdominal paracentesis (~08/03/20) Family History Mother Hypertensive disorder, systemic arterial Cancer Cervical Father Hypertensive disorder, systemic arterial Maternal Grandfather Diabetes Maternal Grandmother Cancer Ovarian Social History Smoking/Tobacco Use Status: Former Tobacco Use Quit Date: 09/18/18 Smoking risk assessment performed?: Yes Alcohol Intake: former Drug use: Never Substance use type: does not use Adopted: No Caregiver/Support person: No Foster care: No Household members: family Housing: house Number of Children: 4 number of grandchildren: 2 Communication Needs: None Do you need help understanding health information?: Often current occupation: Used to work for [employer] [place] Current gender identity: female What is your relationship status?: How often do you talk on the phone with friends or family?: three or more times per week Panel score (0-1 are the most socially isolated patients): 2 What type of physical activity do you participate in: none Seatbelt use: always Drive 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 ride 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 Working smoke detector in home: Yes Fire extinguisher in home: Yes Carbon monox detector in home: Yes Do you feel safe at home: Yes Do you feel safe in your relationship?: Yes Exam Const General: acute distress and disheveled Orientation: alert Limitations: altered mental status HENMT Mouth: oral mucosae normal Eyes Other: icterus, PERRLA Resp Effort & Inspection: normal respiratory effort Cardio Rate: regular rate Heart Sounds: murmur GI Other: Large volume ascites, drainage of peritoneal fluid, no erythema, mild tenderness, difficult assessment, no crepitus Skin Other: Jaundice Neuro General: patient alert Cranial Nerves: CN's II-XI intact bilaterally Speech: other (Slurred speech) Gait: normal gait Motor: strength 5/5 throughout Sensory Exam: no sensory deficits noted Other: Oriented x1 Extrem Other: No peripheral edema Course Vital Signs Vital signs: Vital Signs Temperature 36.4 C L 07/04/21 10:56 Pulse 93 H 07/04/21 10:56 Respiratory Rate 16 07/04/21 10:56 Blood Pressure 123/83 07/04/21 10:56 Pulse Oximetry 98 07/04/21 10:56 Temperature 36.4 C L 07/04/21 10:56 Temperature Source Skin 07/04/21 10:56 Pulse 93 H 07/04/21 10:56 Pulse 84 07/04/21 13:40 Respiratory Rate 15 07/04/21 13:40 Respiratory Effort 07/04/21 13:29 Respiratory Depth Normal 07/04/21 13:29 Respiratory Pattern Normal 07/04/21 13:29 Blood Pressure 123/83 07/04/21 10:56 Blood Pressure Position Sitting 07/04/21 10:56 Pulse Oximetry 98 10/17/21 10:56 Oxygen Delivery Method Room Air 07/04/21 10:56 Oxygen Flow Rate 0 07/04/21 10:56 Pain Level 0 07/04/21 10:56 Lab/Test Results Lab/Test Results: Laboratory Tests Range/Units 07/04/21 07/04/21 07/04/21 11:59 11:59 11:59 WBC (4.4-10.8) 10^3/uL 8.20 RBC (3.93-5.22) 10^6/uL 3.41 L Hgb (11.2-15.7) g/dL 11.1 L Hct (36.0-46.0) % 32.4 L MCV (80-95) fL 95.0 MCH (27.0-33.0) pg 32.6 MCHC (32.0-36.0) % 34.3 RDW (11.7-14.6) % 15.2 H Plt Count (130-400) 10^3/uL 187 MPV (8.0-11.0) fL 9.7 Immature Gran % 0.5 Neutrophils % 76.9 Lymphocytes % 10.6 Monocytes % 9.5 Eosinophils % 1.8 Basophils % 0.7 Nucleated RBC % % 0 Absolute Neutrophils (1.2-6.7) 10^3/uL 6.30 Absolute Lymphocytes (1.2-3.4) 10^3/uL 0.87 L Absolute Monocytes (0.1-0.8) 10^3/uL 0.78 Absolute Eosinophils (0.0-0.7) 10^3/uL 0.15 Absolute Basophils (0.0-0.2) 10^3/uL 0.06 PT INR Sodium (136-145) mmol/L 124 L Potassium (3.5-5.1) mmol/L 3.5 Chloride (98-107) mmol/L 91 L Carbon Dioxide (21.0-32.0) mmol/L 21.6 Anion Gap (3-11) mmol/L 11.4 H BUN (7-18) mg/dL 50 H Creatinine (0.55-1.02) mg/dL 2.6 H Estimated GFR/1.73 m2 (mL/min/1.73m2) 19.18 Glucose (74-106) mg/dL 115 H Calcium (8.5-10.1) mg/dL 9.1 Magnesium (1.8-2.4) mg/dL 2.3 Total Bilirubin (0.2-1.0) mg/dL 4.5 H AST (15-37) U/L 52 H ALT (14-59) U/L 54 Alkaline Phosphatase (46-116) U/L 160 H Ammonia (11-32) umol/L 45 H Troponin I (<0.06) ng/mL < 0.05 NT-Pro-B Natriuret Pep (<300) pg/mL 4812 H Total Protein (6.4-8.2) g/dL 7.3 Albumin (3.4-5.0) g/dL 3.1 L Range/Units 07/04/21 07/04/21 11:59 12:15 WBC (4.4-10.8) 10^3/uL RBC (3.93-5.22) 10^6/uL Hgb (11.2-15.7) g/dL Hct (36.0-46.0) % MCV (80-95) fL MCH (27.0-33.0) pg MCHC (32.0-36.0) % RDW (11.7-14.6) % Plt Count (130-400) 10^3/uL MPV (8.0-11.0) fL Immature Gran % Neutrophils % Lymphocytes % Monocytes % Eosinophils % Basophils % Nucleated RBC % % Absolute Neutrophils (1.2-6.7) 10^3/uL Absolute Lymphocytes (1.2-3.4) 10^3/uL Absolute Monocytes (0.1-0.8) 10^3/uL Absolute Eosinophils (0.0-0.7) 10^3/uL Absolute Basophils (0.0-0.2) 10^3/uL PT Cancelled 12.4 H INR Cancelled 1.2 H Sodium (136-145) mmol/L Potassium (3.5-5.1) mmol/L Chloride (98-107) mmol/L Carbon Dioxide (21.0-32.0) mmol/L Anion Gap (3-11) mmol/L BUN (7-18) mg/dL Creatinine (0.55-1.02) mg/dL Estimated GFR/1.73 m2 (mL/min/1.73m2) Glucose (74-106) mg/dL Calcium (8.5-10.1) mg/dL Magnesium (1.8-2.4) mg/dL Total Bilirubin (0.2-1.0) mg/dL AST (15-37) U/L ALT (14-59) U/L Alkaline Phosphatase (46-116) U/L Ammonia (11-32) umol/L Troponin I (<0.06) ng/mL NT-Pro-B Natriuret Pep (<300) pg/mL Total Protein (6.4-8.2) g/dL Albumin (3.4-5.0) g/dL
[2021-07-04 14:49] LABS: Source Nasal/Nares
[2021-07-04 15:32] LABS: Sodium, Urine 17 mmol/L
[2021-07-04 16:02] LABS: COVID-19 PCR Negative (Negative)
--- NOTE | 2021-07-04 16:21 | NUR.NOTE ---
pts came here with the pts meds for tomorrow Nursing Note:
--- NOTE | 2021-07-04 16:39 | W.SURGCON ---
Date of service: 07/04/21 Time of Service: 16:39 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 Assessment and plan: -Patient already scheduled later this week for thoracenteis/paracentesis with Dr. Lindsey -Patient would benefit from Pleurx catheter placement in abdomen and chest to drain fluid at home PRN -No emergent need for drainage at this time, unless patient develops acute respiratory distress or severe abdominal distention, will proceed as scheduled (2) Hydrothorax: Status: Acute (3) Chronic hepatitis C: Status: Chronic Qualifiers: Hepatic coma status: without hepatic coma Qualified Code(s): B18.2 - Chronic viral hepatitis C (4) Cirrhosis of liver with ascites: Status: Acute Qualifiers: Hepatic cirrhosis type: unspecified hepatic cirrhosis Qualified Code(s): K74.60 - Unspecified cirrhosis of liver; R18.8 - Other ascites (5) Cardiomyopathy: Status: Active (6) Congestive heart failure: Status: Acute History of Present Illness Narrative: 56 year old with decompensated hep C cirrhosis who was brought to the emergency department by her after realizing he could not care for her at home due to her waxing and waning confusion. She was seen in the ER yesterday but left AMA. She is a patient well known to the surgical service here and has been getting frequent paracentesis and thoracentesis as a result of her cirrhosis. We were consulted to see her as she is known to our service and has appointments this week for the above procedures. She is not able to provide history at this point due to her mental status but is not in respiratory distress and does not have enough abdominal ascites to warrant emergent paracentesis.[facility] GI was consulted in the ER who recommended transfusing 50g albumin in the ER and again post paracentesis. US done by ER physician did not reveal significant fluid pocket to perform diagnostic paracentesis. Patient otherwise does not have any abdominal pain or fevers, but rather attributes new symptoms of confusion to new medications. Consults Consult date: 07/04/21 Requesting physician: Jesus Ramirez Review of Systems Constitutional Constitutional: Reports as per HPI, Reports lethargy, Reports poor appetite and Reports weakness Cardiovascular Cardiovascular: Denies dyspnea Respiratory Respiratory: Denies cough and Denies dyspnea Gastrointestinal Gastrointestinal: Denies abdominal pain, Denies nausea and Denies vomiting Neurologic Neurologic: Reports behavioral changes, Reports confusion and Reports weakness Psychiatric Psychiatric: Reports behavioral changes and Reports confusion [facility] Medical History Advanced hepatic cirrhosis Hep C & ETOH Anxiety Atrial fibrillation with controlled ventricular rate Attention deficit hyperactivity disorder, 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 History of thoracentesis (~08/03/20) 08/10/20 08/21/20 History of thoracentesis (~08/31/20) Hx of tubal ligation S/P abdominal paracentesis (~08/03/20) Family History Mother Hypertensive disorder, systemic arterial Cancer Cervical Father Hypertensive disorder, systemic arterial Maternal Grandfather Diabetes Maternal Grandmother Cancer Ovarian Social History Smoking/Tobacco Use Status: Former Tobacco Use Quit Date: 09/18/18 Smoking risk assessment performed?: Yes Alcohol Intake: former Drug use: Never Substance use type: does not use Adopted: No Caregiver/Support person: No Foster care: No Household members: family Housing: house Number of Children: 4 number of grandchildren: 2 Communication Needs: None Do you need help understanding health information?: Often current occupation: Used to work for [employer] Current gender identity: female What is your relationship status?: How often do you talk on the phone with friends or family?: three or more times per week Panel score (0-1 are the most socially isolated patients): 2 What type of physical activity do you participate in: none Seatbelt use: always 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 Working smoke detector in home: Yes Fire extinguisher in home: Yes Carbon monox detector in home: Yes Do you feel safe at home: Yes Do you feel safe in your relationship?: Yes Exam Const General: comfortable, no acute distress, disheveled and ill appearing Resp Effort & Inspection: normal respiratory effort, no audible wheezes, not labored and no respiratory distress GI Inspection: distended Palpation: soft, nontender and ascites Neuro General: patient alert and patient awake Cognition: abnormal cognition Results Last Vital Signs Temp 97.2 F L 07/04/21 14:40 Pulse 79 07/04/21 14:42 Resp 11 L 07/04/21 16:20 BP 128/84 07/04/21 14:42 Pulse Ox 100 07/04/21 14:40 Labs Result diagrams: 07/04/21 11:59 07/04/21 11:59 Labs: Laboratory Results - last 24 hr 07/03/21 07/04/21 07/04/21 15:00 11:59 11:59 WBC RBC Hgb Hct MCV MCH MCHC RDW Plt Count MPV Immature Gran % Neutrophils % Lymphocytes % Monocytes % Eosinophils % Basophils % Nucleated RBC % Absolute Neutrophils Absolute Lymphocytes Absolute Monocytes Absolute Eosinophils Absolute Basophils PT INR Sodium 124 L Potassium 3.5 Chloride 91 L Carbon Dioxide 21.6 Anion Gap 11.4 H BUN 50 H Creatinine 2.6 H Estimated GFR/1.73 m2 19.18 Glucose 115 H Calcium 9.1 Magnesium 2.3 Total Bilirubin 4.5 H AST 52 H ALT 54 Alkaline Phosphatase 160 H Ammonia 45 H Troponin I < 0.05 NT-Pro-B Natriuret Pep 4812 H Total Protein 7.3 Albumin 3.1 L Ur Random Sodium 17 COVID-19 Source SARS-CoV-2 (PCR) 07/04/21 07/04/21 07/04/21 11:59 11:59 12:15 WBC 8.20 RBC 3.41 L Hgb 11.1 L Hct 32.4 L MCV 95.0 MCH 32.6 MCHC 34.3 RDW 15.2 H Plt Count 187 MPV 9.7 Immature Gran % 0.5 Neutrophils % 76.9 Lymphocytes % 10.6 Monocytes % 9.5 Eosinophils % 1.8 Basophils % 0.7 Nucleated RBC % 0 Absolute Neutrophils 6.30 Absolute Lymphocytes 0.87 L Absolute Monocytes 0.78 Absolute Eosinophils 0.15 Absolute Basophils 0.06 PT Cancelled 12.4 H INR Cancelled 1.2 H Sodium Potassium Chloride Carbon Dioxide Anion Gap BUN Creatinine Estimated GFR/1.73 m2 Glucose Calcium Magnesium Total Bilirubin AST ALT Alkaline Phosphatase Ammonia Troponin I NT-Pro-B Natriuret Pep Total Protein Albumin Ur Random Sodium COVID-19 Source SARS-CoV-2 (PCR) 07/04/21 14:40 WBC RBC Hgb Hct MCV MCH MCHC RDW Plt Count MPV Immature Gran % Neutrophils % Lymphocytes % Monocytes % Eosinophils % Basophils % Nucleated RBC % Absolute Neutrophils Absolute Lymphocytes Absolute Monocytes Absolute Eosinophils Absolute Basophils PT INR Sodium Potassium Chloride Carbon Dioxide Anion Gap BUN Creatinine Estimated GFR/1.73 m2 Glucose Calcium Magnesium Total Bilirubin AST ALT Alkaline Phosphatase Ammonia Troponin I NT-Pro-B Natriuret Pep Total Protein Albumin Ur Random Sodium COVID-19 Source Nasal/Nares SARS-CoV-2 (PCR) Negative
--- NOTE | 2021-07-04 17:14 | W.PM.HP.N ---
Date of service: 07/04/21 Time of Service: 17:14 Assessment and Plan Assessment and plan (1) Acute hyponatremia: Status: Acute Assessment and plan: Unsure if this is d/t excessive water ingestion or not. BUN elevated and creatinine elevated so water intoxication is less likely. Holding spironolactone and torsemide. IV NS. Monitor. 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 Holding spironolactone and torsemide d/t hyponatremia. Gen Surg consulted. Was already scheduled for repeat paracentesis with gen surg on 07/05. D/T ongoing drainage of ascites fluid from previous paracentesis site, US performed in ED by gen. surg. indicated no significant accumulation of ascites that would warrant paracentesis. (3) Hepatic encephalopathy: Status: Acute Assessment and plan: Ammonia much improved but still elevated. Cont lactulose. (4) Chronic hepatitis C: Status: Chronic Assessment and plan: Cont Harvoni. (5) Congestive heart failure: Status: Acute Assessment and plan: No evidence of decompensated cardiac function. History of Present Illness History of Present Illness Chief Complaint: altered mental status Narrative: This is a 56 yo female with a h/o decompensated hepatitis C liver cirrhosis, cardiomyopathy, CHF, CKD, depression/anxiety, atrial fibrillation. She reported back to [facility] ED after leaving the previous day against medical advise. She was found to have a low Na and was encephalopathic with an elevated ammonia level. Her believed he would be able to care for her at home, but then returned with the patient on the day of this admission d/t ongoing intermittent confusion. Prior to the previous ED evaluation she had not restarted her lactulose after her last scheduled paracentesis. Her ammonia level was 123. When she returned home her administered 3 doses of lactulose and upon her return to the ED her ammonia level was 45. Her Na level was 123 at the first ED eval., then 124 at this presentation. She has had a Na of 130 in the past but has typically been normal. In the ED she would intermittently refuse assesment. Zyprexa was given and she then became more cooperative and eventually lethargic. She was noted to be drainage ascites fluid from the last paracentesis site. GI at [facility] recommended givig 50 g of albumin (administered) in the ED then repeat the following day along with paracentesis. Her , who is her DPOA, consented for treatment. Review of Systems Unobtainable due to mental status (All information was obtained from by the ED physician.) [facility] Medical History Advanced hepatic cirrhosis Hep C & ETOH Anxiety Atrial fibrillation with controlled ventricular rate Attention deficit hyperactivity disorder, 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 History of thoracentesis (~08/03/20) 08/10/20 08/21/20 History of thoracentesis (~08/31/20) Hx of tubal ligation S/P abdominal paracentesis (~08/03/20) Family History Mother Hypertensive disorder, systemic arterial Cancer Cervical Father Hypertensive disorder, systemic arterial Maternal Grandfather Diabetes Maternal Grandmother Cancer Ovarian Social History Smoking/Tobacco Use Status: Former Tobacco Use Quit Date: 09/18/18 Smoking risk assessment performed?: Yes Alcohol Intake: former Drug use: Never Substance use type: does not use Adopted: No Caregiver/Support person: No Foster care: No Household members: family Housing: house Number of Children: 4 number of grandchildren: 2 Communication Needs: None Do you need help understanding health information?: Often current occupation: Used to work for [employer] Current gender identity: female What is your relationship status?: How often do you talk on the phone with friends or family?: three or more times per week Panel score (0-1 are the most socially isolated patients): 2 What type of physical activity do you participate in: none Seatbelt use: always Drive intox or ride w/intox 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: No Working smoke detector in home: Yes Fire extinguisher in home: Yes Carbon monox detector in home: Yes Do you feel safe at home: Yes Do you feel safe in your relationship?: Yes Meds Allergies and Home Medications Allergies Allergy/AdvReac Type Severity Reaction Status Date / Time amphetamine aspartate Allergy Severe Facial Verified 07/04/21 11:03 [From Adderall] Swelling, Blisters, Tongue Swelling, Rash, amphetamine sulfate Allergy Severe Facial Verified 07/04/21 11:03 [From Adderall] Swelling, Blisters, Tongue Swelling, Rash, dextroamphetamine saccharate Allergy Severe Facial Verified 07/04/21 11:03 [From Adderall] Swelling, Blisters, Tongue Swelling, Rash, dextroamphetamine sulfate Allergy Severe Facial Verified 07/04/21 11:03 [From Adderall] Swelling, Blisters, Tongue Swelling, Rash, Penicillins Allergy Intermediate Hives, Verified 07/04/21 11:03 Rash, Tongue Swelling codeine AdvReac Mild Constipatio Verified 07/04/21 11:03 n Home Medications Medication Instructions Recorded Confirmed Type Xifaxan 550 mg PO BID 04/18/20 07/04/21 History metoprolol tartrate 25 mg tablet 50 mg PO BID 10/12/20 07/04/21 History spironolactone 50 mg tablet 100 mg PO TID tab 01/21/21 07/04/21 History torsemide 20 mg tablet 20 mg PO QID tab 02/08/21 07/04/21 History lactulose 20 gram/30 mL oral 20 g PO TID PRN ml 03/03/21 07/04/21 History solution famotidine 20 mg tablet 20 mg PO DAILY PRN 04/05/21 07/04/21 History nitroglycerin 0.4 mg sublingual 0.4 mg SUBLINGUAL Q5M PRN 04/05/21 07/04/21 History tablet loratadine 10 mg tablet 10 mg PO DAILY #30 tab 04/27/21 07/04/21 Rx magnesium oxide 400 mg PO DAILY 05/25/21 07/04/21 History ledipasvir-sofosbuvir [Harvoni] 90 - 400 tab PO DAILY 06/08/21 07/04/21 History ribavirin 200 mg PO DAILY 06/08/21 07/04/21 History Exam Const General: disheveled, lethargic and other (restless while asleep) Orientation: other (lethargic) Limitations: altered mental status HENMT Mouth: oral mucosae normal Resp Effort & Inspection: normal respiratory effort Cardio Rate: regular rate Heart Sounds: murmur GI Inspection: distended and other (clear fluid drainage at paracentesis site in the RLQ.) Auscultation: normal bowel sounds Neuro General: moves all extremities Cognition: abnormal cognition Results Labs Result diagrams: 07/04/21 11:59 07/04/21 11:59 Labs: Laboratory Results - last 24 hr 07/03/21 07/04/21 07/04/21 15:00 11:59 11:59 WBC RBC Hgb Hct MCV MCH MCHC RDW Plt Count MPV Immature Gran % Neutrophils % Lymphocytes % Monocytes % Eosinophils % Basophils % Nucleated RBC % Absolute Neutrophils Absolute Lymphocytes Absolute Monocytes Absolute Eosinophils Absolute Basophils PT INR Sodium 124 L Potassium 3.5 Chloride 91 L Carbon Dioxide 21.6 Anion Gap 11.4 H BUN 50 H Creatinine 2.6 H Estimated GFR/1.73 m2 19.18 Glucose 115 H Calcium 9.1 Magnesium 2.3 Total Bilirubin 4.5 H AST 52 H ALT 54 Alkaline Phosphatase 160 H Ammonia 45 H Troponin I < 0.05 NT-Pro-B Natriuret Pep 4812 H Total Protein 7.3 Albumin 3.1 L Ur Random Sodium 17 COVID-19 Source SARS-CoV-2 (PCR) 07/04/21 07/04/21 07/04/21 11:59 11:59 12:15 WBC 8.20 RBC 3.41 L Hgb 11.1 L Hct 32.4 L MCV 95.0 MCH 32.6 MCHC 34.3 RDW 15.2 H Plt Count 187 MPV 9.7 Immature Gran % 0.5 Neutrophils % 76.9 Lymphocytes % 10.6 Monocytes % 9.5 Eosinophils % 1.8 Basophils % 0.7 Nucleated RBC % 0 Absolute Neutrophils 6.30 Absolute Lymphocytes 0.87 L Absolute Monocytes 0.78 Absolute Eosinophils 0.15 Absolute Basophils 0.06 PT Cancelled 12.4 H INR Cancelled 1.2 H Sodium Potassium Chloride Carbon Dioxide Anion Gap BUN Creatinine Estimated GFR/1.73 m2 Glucose Calcium Magnesium Total Bilirubin AST ALT Alkaline Phosphatase Ammonia Troponin I NT-Pro-B Natriuret Pep Total Protein Albumin Ur Random Sodium COVID-19 Source SARS-CoV-2 (PCR) 07/04/21 14:40 WBC RBC Hgb Hct MCV MCH MCHC RDW Plt Count MPV Immature Gran % Neutrophils % Lymphocytes % Monocytes % Eosinophils % Basophils % Nucleated RBC % Absolute Neutrophils Absolute Lymphocytes Absolute Monocytes Absolute Eosinophils Absolute Basophils PT INR Sodium Potassium Chloride Carbon Dioxide Anion Gap BUN Creatinine Estimated GFR/1.73 m2 Glucose Calcium Magnesium Total Bilirubin AST ALT Alkaline Phosphatase Ammonia Troponin I NT-Pro-B Natriuret Pep Total Protein Albumin Ur Random Sodium COVID-19 Source Nasal/Nares SARS-CoV-2 (PCR) Negative Last Vital Signs Temp 36.2 C L 07/04/21 14:40 Pulse 79 07/04/21 14:42 Resp 11 L 07/04/21 16:20 BP 128/84 07/04/21 14:42 Pulse Ox 100 07/04/21 14:40
--- NOTE | 2021-07-04 18:34 | NUR.NOTE ---
pt attempted to get off of the bed , she was unsteady on her feet . 3 nurse assist return to bed. pt was incont of huge amount of urine . she also voided on the commode. she has returned to resting Nursing Note:
[2021-07-04] MEDS: Rifaximin 550 MG TAB PO (20:56)
[2021-07-04] MEDS: Metoprolol 50 MG TAB PO (20:56)
[2021-07-05 00:22] VITALS: BP 102/69; PULSE 80; PULSE 81; RESP 19; O2SAT 96
[2021-07-05 02:14] VITALS: BP 95/60; PULSE 76; PULSE 77; RESP 16; O2SAT 96
[2021-07-05 04:00] VITALS: BP 106/65; PULSE 72; PULSE 82; RESP 15; TEMP 36; O2SAT 98
--- NOTE | 2021-07-05 06:02 | NUR.NOTE ---
Nursing Note At 04:30H- pt awake and wanted to go home,called her through her own phone asking to come pick her from the hospital. 05:00H-Pt's Isaac Carmona reached hospital to take pt home. Informed Dr Gould, as per him,pt is not able to make decision and pt's is the DPOA, who can thus sign the AMA form and pt can leave. Informed pt's the message from the hospitalist. Nurse supervisor engraving Alba aware. 05:40H-Pt's signed the AMA form. Removed cardiac monitoring and IV line, changed into pt's clothes, 2 bottles of home medication, cell phone and pt belongings handed over to the . Pt left ICU by wheelchair through the main entrance to the truck accompanied by pt's .
== END 2021-07-05 05:45 | disposition left against medical advice (07) ==
LOC: ER 11:11 → ICU 19:21
PROVIDERS: Admitting Provider Family Medicine; Emergency Provider Physician Assistant; PCP Family Medicine; Visit Provider Family Medicine
DX: E87.1 Hypo-osmolality and hyponatremia (principal); K72.90 Hepatic failure, unspecified without coma; B18.2 Chronic viral hepatitis C; K74.69 Other cirrhosis of liver; I50.9 Heart failure, unspecified; I42.9 Cardiomyopathy, unspecified; F32.A Depression, unspecified; F41.9 Anxiety disorder, unspecified; I48.91 Unspecified atrial fibrillation; R18.8 Other ascites; F90.2 Attention-deficit hyperactivity disorder, combined type; N18.4 Chronic kidney disease, stage 4 (severe); Z87.891 Personal history of nicotine dependence; J94.8 Other specified pleural conditions; Z20.822 Contact with and (suspected) exposure to COVID-19
CPT/HCPCS: 36415; 80053; 87635; 96365; 96372; 99213; 99285; 82140; 83735; 83880; 84300; 84484; 85025; 85610; 99220; 99284; G0378

== ENCOUNTER 2021-07-05 02:45 | Outpatient (CLI) | payer MEDICARE, MEDICAID, SELFPAY ==
[2021-07-05 11:14] LABS: Source Nasal/Nares
[2021-07-05 14:00] LABS: COVID-19 PCR Negative (Negative)
== END 2021-07-05 02:46 | disposition home or self-care (01) ==
LOC: LBO 02:45
PROVIDERS: PCP Family Medicine; Visit Provider Surgery
DX: Z20.822 Contact with and (suspected) exposure to COVID-19 (principal); Z01.818 Encounter for other preprocedural examination
CPT/HCPCS: 87635

== ENCOUNTER 2021-07-07 02:04 | Outpatient (CLI) | payer MEDICARE, MEDICAID, SELFPAY ==
[2021-07-07 10:18] LABS: Source Nasal/Nares
[2021-07-07 13:53] LABS: COVID-19 PCR Negative (Negative)
== END 2021-07-07 02:05 | disposition home or self-care (01) ==
LOC: LBO 02:04
PROVIDERS: PCP Family Medicine; Visit Provider Surgery
DX: Z20.822 Contact with and (suspected) exposure to COVID-19 (principal); Z01.818 Encounter for other preprocedural examination
CPT/HCPCS: 87635

== ENCOUNTER 2021-07-08 06:59 | Day surgery (SDC) | payer MEDICARE, MEDICAID, SELFPAY ==
--- NOTE | 2021-07-08 06:45 | DI.RAD_ITS ---
Exam(s) XR CHEST 2V PA LATERAL EXAM: XR CHEST 2V PA LATERAL CLINICAL HISTORY: pre thoracentesis,pleural effusion,j90. TECHNIQUE: 2D digital imaging was performed. COMPARISON: CR XR CHEST 2V PA LATERAL from 06/23/2021 CR XR CHEST 2V PA LATERAL from 06/23/2021 CR XR CHEST 2V PA LATERAL from 06/29/2021 CR XR CHEST 2V PA LATERAL from 06/29/2021 CR XR PORTABLE CHEST AP from 06/29/2021 CR XR PORTABLE CHEST AP from 06/29/2021 FINDINGS: Heart size unchanged.. Scoliosis again noted. Left lung remains clear. On the right side there is a moderate size right pleural effusion has again increased in size from (post thoracentesis image that date) and is now equivalent in size to 06/23/2021. There is also a 9 millimeter nodule now evident in the mid-lower right lung zone. No pleural effusio n on the opposite-left side. No pneumothorax. IMPRESSION: Moderate size right pleural effusion as described above. Also 9 millimeter noncalcified nodule now e vident in the right lung. If clinically indicated follow-up CT scan can be performed. DATA REPOSITORY: RADIATION DOSE DELIVERED:
--- NOTE | 2021-07-08 07:13 | DI.VRAD_ITS ---
PROCEDURE INFORMATION: Exam: XR Chest Exam date and time: 07/08/2021 2:26 PM Age: 56 years old Clinical indication: Other: Prethoracentesis, pleural effusion TECHNIQUE: Imaging protocol: XR of the chest. Views: 2 views. COMPARISON: CT CHEST/ABD/PEL WO 07/03/2021 3:46 PM FINDINGS: Lungs: Stable opacity at the right base probably related to compressive atelectasis. Pleural spaces: Stable moderate right effusion. No pneumothorax. 9 mm nodular opacity projecting over the right lower lung. Heart/Mediastinum: Cardiomediastinal silhouette is unremarkable. Bones/joints: Stable scoliosis and multilevel degenerative change. IMPRESSION: 1. Stable moderate right pleural effusion with subjacent compressive atelectasis. 2. 9 mm nodular opacity projecting over the right lower lung. May represent a pulmonary nodule. Can be further defined with CT. Dictated and Authenticated by: Abimael Hdz MD. Ordering:JEFFREY Oliva MD
[2021-07-08 07:25] VITALS: BP 118/78; PULSE 94; RESP 13; TEMP 35.9; O2SAT 100
[2021-07-08 09:25] VITALS: BP 107/73; PULSE 67; RESP 16; TEMP 35.9; O2SAT 100
--- NOTE | 2021-07-08 09:53 | DI.RAD_ITS ---
Exam(s) XR PORTABLE CHEST AP EXAM: XR PORTABLE CHEST AP CLINICAL HISTORY: post thoracentesis/paracentesis. TECHNIQUE: 2D digital imaging was performed. COMPARISON: CR,XR XR CHEST 2V PA LATERAL from 07/08/2021 . Also prior chest x-rays reviewed FINDINGS: Heart size is unchanged. The mediastinum is not widened. Size of the right pleural effusion has again decreased, most probably related to interval thoracentes is. No evidence of significant pneumothorax. No shift of midline structures. Scoliosis again noted. IMPRESSION: Probable post thoracentesis image with decrease in size of the right pleural effusion compared to ear lier same date. No obvious ipsilateral pneumothorax. The nodule described on the earlier chest x-ray today is less evident on this post thoracentesis imag e. DATA REPOSITORY: RADIATION DOSE DELIVERED: All CT scans at this facility use at least one of these dose optimization techniques: automated exposure control; mA and/or kV adjustment per patient size (includes targeted e xams where dose is matched to clinical indication); or iterative reconstruction.
[2021-07-08 10:03] LABS: Abs Immature Grans 0.05 10^3/uL (0.0-0.06); Absolute Basophil Count 0.05 10^3/uL (0.0-0.2); Absolute Eosinophil Count 0.12 10^3/uL (0.0-0.7); Absolute Lymphocyte Count 0.97 10^3/uL (1.2-3.4); Absolute Monocyte Count 0.82 10^3/uL (0.1-0.8); Absolute Neutrophil Count 5.28 10^3/uL (1.2-6.7); Basophils % 0.7; Eosinophils % 1.6; HCT 32.4 % (36.0-46.0); Immature Grans % 0.7; Lymphocytes % 13.3; MCH 32.5 pg (27.0-33.0); MCV 95.9 fL (80-95); MPV 9.9 fL (8.0-11.0); Monocytes % 11.2; Neutrophils % 72.5; Nucleated RBC 0 %; Platelet Count 148 10^3/uL (130-400); RBC 3.38 10^6/uL (3.93-5.22); RDW 15.9 % (11.7-14.6); RDW-SD 55.8 fL; WBC 7.29 10^3/uL (4.4-10.8)
[2021-07-08] MEDS: Normal Saline Flush 10 ML SYR IV (10:10)
[2021-07-08 10:12] LABS: Ammonia 74 umol/L (11-32)
[2021-07-08] MEDS: ALBUMIN HUMAN 25 GM/100 ML BTL IV ×2 (10:12→10:28)
[2021-07-08 10:36] LABS: ALT 45 U/L (14-59); AST 45 U/L (15-37); Alkaline Phosphatase 161 U/L (46-116); Anion Gap 12.2 mmol/L (3-11); BUN 52 mg/dL (7-18); Bilirubin, Total 3.5 mg/dL (0.2-1.0); C-Reactive Protein 0.89 mg/dL (0.0-0.3); CO2 20.8 mmol/L (21.0-32.0); CREATININE 2.4 mg/dL (0.55-1.02); Calcium 8.7 mg/dL (8.5-10.1); Chloride 97 mmol/L (98-107); Estimated GFR 21.04 (mL/min/1.73m2); Glucose 112 mg/dL (74-106); Magnesium 2.1 mg/dL (1.8-2.4); NT-proBNP 3589 pg/mL (<300); Potassium 3.2 mmol/L (3.5-5.1); Sodium 130 mmol/L (136-145); Total Protein 6.9 g/dL (6.4-8.2)
--- NOTE | 2021-07-08 10:37 | W.PM.DSUDISC ---
Discharge Plan Disposition Patient Disposition: HOME Condition: Stable Discharge Details Reason For Visit: Fluid Removal from Lung Attending Provider: Hazel Lidnsey Primary Care Provider: Dillon Muller Home Meds and New Rx's Prescriptions: Continued loratadine [Claritin] 10 mg tablet 10 mg PO DAILY Qty: 30 RF: 12 metoprolol tartrate 25 mg tablet 50 mg PO BID RF: 0 lactulose 20 gram/30 mL solution 20 g PO TID PRNRF: 0 famotidine 20 mg tablet 20 mg PO DAILY PRNRF: 0 nitroglycerin [Nitrostat] 0.4 mg tablet, sublingual 0.4 mg sublingual Q5M PRNRF: 0 Xifaxan 550 mg tablet 550 mg PO BID RF: 0 magnesium oxide 400 mg magnesium tablet 400 mg PO DAILY RF: 0 ledipasvir-sofosbuvir [Harvoni] 90-400 mg tablet 90 - 400 tab PO DAILY RF: 0 Discontinued spironolactone 50 mg tablet 100 mg PO TID RF: 0 torsemide 20 mg tablet 20 mg PO QID RF: 0 ribavirin 200 mg tablet 200 mg PO DAILY RF: 0 Discharge Instructions Additional Instructions: -Take your lactulose when you get home! 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
[2021-07-08 10:45] LABS: INR 1.3 (0.9-1.1); Prothrombin Time 13.3 sec (9.3-11.0)
[2021-07-08 10:49] VITALS: BP 118/80; PULSE 66; RESP 16; TEMP 36.1; O2SAT 100
--- NOTE | 2021-07-08 15:49 | W.PM.OP ---
Date of service: 07/08/21 Time of Service: 15:49 Operative Note Operative Note DATE OF PROCEDURE: 07/08/21 PRE-OP DIAGNOSIS: cirrhosis POST-OP DIAGNOSIS: same PROCEDURE: para and thor SURGEON: Hazel Lindsey ANESTHESIA TYPE: Local By Surgeon Refer to Anesthesia Record ESTIMATED BLOOD LOSS: 1 COMPLICATIONS: None Patient was transported to: same day Procedure Description: REPORT OF OPERATION Operative Note Operative Note Pt is here today for thoracentesis for symptoms of shortness of breath. Chest x-ray was reviewed prior to beginning the procedure. Informed consent was obtained explaining risks and benefits of the procedure, including but not limited to bleeding, infection, pneumothorax, recurrence, complications of anesthesia, and other unforetold complications. PROCEDURE: The patient is brought to the procedure room and placed in the seated position. Ultrasound is used to localize the pocket on the right chest. The area is marked and then prepped and draped in the usual sterile fashion using a ChloraPrep scrub solution. 10 cc's of 1% Lidocaine is used to anesthetize the T10 interspace. The small chai is made with a #11 blade. The needle and catheter is then inserted over the top of the rib, aspirating as it is inserted. The needle is then removed. The catheter is then hooked up to the Vacutainer system and 2100 cc's of straw-colored fluid is evacuated. The catheter is removed; pressure is held. Sterile compression dressing is applied. Portable chest x-ray shows no pneumothorax. The patient is brought to the procedure room and placed in the supine position. Placement chosen on top in the right upper quadrant. A time-out is done. Ultrasound is used to localize the pocket. The area is prepped and draped in the usual sterile fashion using a ChloraPrep scrub solution. 20 cc's of 1% Lidocaine with epinephrine is used for local anesthetization. The abdomen is punctured and the catheter is inserted. 600cc of light yellow fluid is evacuated today. The catheter is removed. Pressure dressing is applied. The patient tolerated the procedure well without complication. Pt is given instructions in wound care, activity, medications, and warning signs: SOB, increasing in pain, chest pain, redness or temperature- if these occur, come to ED.
== END 2021-07-08 11:05 | disposition home or self-care (01) ==
PROVIDERS: PCP Family Medicine; Visit Provider Surgery
PROC: (CPT 32554; principal; 2021-07-08 07:30)
DX: K74.69 Other cirrhosis of liver (principal); B18.2 Chronic viral hepatitis C; R18.8 Other ascites; J91.8 Pleural effusion in other conditions classified elsewhere
CPT/HCPCS: 32554; 49082; 36415; 80053; 96365; 71045; 71046; 82140; 83735; 83880; 85025; 85610; 86140

== ENCOUNTER 2021-07-13 08:02 | Day surgery (SDC) | payer MEDICARE, MEDICAID, SELFPAY ==
--- NOTE | 2021-07-13 13:54 | NUR.NOTE ---
Patient presented to DSU front desk supervisor around 1115 reporting that she was not going to have her scheduled procedure today; DRY HOUSE TENDER at desk reported to this nurse concerns about patient noting that her speech was slurred and that it was hard to understand her. This nurse went out to meet patient who reported that she could not have the procedure because she would not be out in time to grain picker her daughter from high school. This nurse quickly determined that that patient's speech was not at baseline, but quite slurred and very difficult to comprehend. Patient agreeable to come back into [facility] to speak with provider about plan of care. MD feels that patient is not able to make logical decisions about her care at this time, but is oriented to person, place, time. This nurse called and left voicemail for care management, as well as sent message via Teams and had care management paged to receive additional support in knowing how to proceed with patient's care. This nurse also relayed concerns r/t the patient's change in behavior and speech in comparison to (multiple) previous visits in which her speech was clear and concise. Obie Valdez, nurse poker manager of OR, Niles Cool, pipe assembly worker contacted by this nurse and made aware of situation. Niles Cool contacted Chloe Diop with risk management and Denis Sheffield, nursing glaze supervisor for additional support. Patient did leave the unit to go to the lab/DI, unsure if the ordered labs/tests were actually performed in these locations. location manager called back at this time and Silvina updated them of situation; resident care provider indicated that she would try to meet patient by the lab. Patient's spouse was notified of patient's condition and staff concerns by Jadon Cool, and Nettie; patient's spouse verbalized understanding and reported that he would come and pick her up. It is our understanding that the patient did get in her car to drive home. Silvina called patient's spouse again to let him know that we thought she may have gotten in her car to leave, and patient's spouse indicated that he would find her.
--- NOTE | 2021-07-13 15:49 | PGE_ITS ---
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 (4) Hepatic encephalopathy: Status: Acute (5) Chronic hepatitis C: Status: Chronic Qualifiers: Hepatic coma status: without hepatic coma Qualified Code(s): B18.2 - Chronic viral hepatitis C (6) Hypokalemia due to excessive renal loss of potassium: Status: Acute (7) Cirrhosis of liver with ascites: Status: Acute Qualifiers: Hepatic cirrhosis type: unspecified hepatic cirrhosis Qualified Code(s): K74.60 - Unspecified cirrhosis of liver; R18.8 - Other ascites (8) Cardiomyopathy: Status: Active (9) Congestive heart failure: Status: Acute (10) Advanced hepatic cirrhosis: Status: Chronic (11) Atrial fibrillation with controlled ventricular rate: Status: Acute (12) CKD (chronic kidney disease) stage 4, GFR 15-29 ml/min: Status: Acute Subjective Subjective Interval history since last seen: Patient did show up for the paracentesis thoracocentesis procedure today. But as she still shows up she says she cannot stay because she has to go pick her child up. She did agree to at least have her lab work done. As she is coming into the house today the nurses note that she is very so mnolent, she is slurring her words, she is very difficult to understand. Most of her words are nonsensical. She is weaving and staggering when she walks. She almost fell several times. She gets her dates and appointments and medications confused. I did review her labs that she had drawn at [place] yesterday Erin does not have time to do the procedure today because she is picking up her daughter she wants to reschedule the procedure for Monday or . I told her I was not available. I also discussed with her that her mental state is not really improving; it has been pretty much the same for the past week. 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 Erin states that Dr. Noriega told her it is not her liver. That her liver is improving. And that she is fine to drive. I did read Dr. Noriega's note, and it did not address that issue. Her mental status is relatively poor. She is very poor memory. She has no insight. She has very poor judgment. Her reflexes are not good. She definitely has a liver flap. It is my opinion that she should not be driving and she is a danger to herself and others. She states that and Damir, her , told her she was fine to drive and he gave her the keys. Patient became very angry and confrontational and said she was going to [place] for any cares in the future is and would not be back to [facility] 30 minutes was spent with the patient today Objective Laboratory Results - last 24 hr 07/13/21 06:00 COVID-19 Source Cancelled SARS-CoV-2 (PCR) Cancelled
== END 2021-07-14 07:57 | disposition home or self-care (01) ==
PROVIDERS: PCP Family Medicine; Visit Provider Surgery
PROC: 0W9G3ZZ Drainage of Peritoneal Cavity, Percutaneous Approach (ICD-10-PCS; CPT 49082; principal; 2021-07-13 12:00)
PROC: (CPT 32554; 2021-07-13 12:00)
DX: Z53.29 Procedure and treatment not carried out because of patient's decision for other reasons (principal); K72.00 Acute and subacute hepatic failure without coma; B18.2 Chronic viral hepatitis C; K74.60 Unspecified cirrhosis of liver; R18.8 Other ascites; I42.9 Cardiomyopathy, unspecified; I50.9 Heart failure, unspecified; I48.91 Unspecified atrial fibrillation; N18.4 Chronic kidney disease, stage 4 (severe); K74.69 Other cirrhosis of liver
CPT/HCPCS: 87635

== ENCOUNTER 2021-07-19 02:30 | Outpatient (CLI) | payer MEDICARE, MEDICAID, SELFPAY ==
[2021-07-19 12:06] LABS: Source Nasal/Nares
[2021-07-19 20:34] LABS: COVID-19 PCR Negative (Negative)
== END 2021-07-19 02:31 | disposition home or self-care (01) ==
LOC: LBO 02:31
PROVIDERS: PCP Family Medicine; Visit Provider Surgery
DX: Z20.822 Contact with and (suspected) exposure to COVID-19 (principal)
CPT/HCPCS: 87635

== ENCOUNTER 2021-07-20 02:27 | Outpatient (CLI) | payer MEDICARE, MEDICAID, SELFPAY ==
[2021-07-20 09:37] LABS: HCT 30.3 % (36.0-46.0); HGB 9.6 g/dL (11.2-15.7); MCH 32.7 pg (27.0-33.0); MCHC 31.7 % (32.0-36.0); MCV 103.1 fL (80-95); MPV 9.4 fL (8.0-11.0); Platelet Count 128 10^3/uL (130-400); RBC 2.94 10^6/uL (3.93-5.22); RDW 16.4 % (11.7-14.6); RDW-SD 62.9 fL; WBC 5.21 10^3/uL (4.4-10.8)
[2021-07-20 09:49] LABS: Ammonia 81 umol/L (11-32)
[2021-07-20 09:54] LABS: INR 1.3 (0.9-1.1); Prothrombin Time 13.4 sec (9.3-11.0)
[2021-07-20 09:58] LABS: ALT 36 U/L (14-59); AST 32 U/L (15-37); Albumin 2.9 g/dL (3.4-5.0); Alkaline Phosphatase 147 U/L (46-116); Anion Gap 8.3 mmol/L (3-11); BUN 37 mg/dL (7-18); Bilirubin, Total 2.7 mg/dL (0.2-1.0); C-Reactive Protein 0.57 mg/dL (0.0-0.3); CO2 21.7 mmol/L (21.0-32.0); CREATININE 2.2 mg/dL (0.55-1.02); Calcium 8.4 mg/dL (8.5-10.1); Chloride 107 mmol/L (98-107); Estimated GFR 23.26 (mL/min/1.73m2); Glucose 116 mg/dL (74-106); Magnesium 1.8 mg/dL (1.8-2.4); NT-proBNP 3655 pg/mL (<300); Potassium 4.1 mmol/L (3.5-5.1); Sodium 137 mmol/L (136-145); Total Protein 6.4 g/dL (6.4-8.2)
== END 2021-07-20 02:28 | disposition home or self-care (01) ==
LOC: LBO 02:27
PROVIDERS: PCP Family Medicine; Visit Provider Surgery
DX: I48.91 Unspecified atrial fibrillation (principal); E63.9 Nutritional deficiency, unspecified; B18.8 Other chronic viral hepatitis; K74.60 Unspecified cirrhosis of liver
CPT/HCPCS: 36415; 80053; 85027; 82140; 83735; 83880; 85610; 86140

== ENCOUNTER 2021-07-20 09:40 | Day surgery (SDC) | payer MEDICARE, MEDICAID, SELFPAY ==
--- NOTE | 2021-07-20 07:00 | DI.RAD_ITS ---
Exam(s) XR CHEST 2V PA LATERAL EXAM: XR CHEST 2V PA LATERAL CLINICAL HISTORY: pre thoracentesis, pleural effusion, cirrhosis of liver, j90 TECHNIQUE: COMPARISON: CR XR PORTABLE CHEST AP from 07/08/2021 CR,XR XR CHEST 2V PA LATERAL from 07/08/2021 CR,XR XR CHEST 2V PA LATERAL from 07/08/2021 FINDINGS: There is thoracolumbar scoliosis. The heart appears mildly enlarged. There is a large right pleural effusion which is increased in size in comparison with examination of July 08, both pre and pos t thoracentesis films. No left pleural effusion seen. No focal pulmonary consolidation. IMPRESSION: RADIATION DOSE DELIVERED: Total DLP
[2021-07-20 09:46] VITALS: BP 124/76; PULSE 78; RESP 16; TEMP 36.6; O2SAT 100
[2021-07-20] MEDS: Sodium Bicarbonate 50 MEQ/50 ML VIAL (11:00)
[2021-07-20 12:09] VITALS: BP 110/77; PULSE 66; RESP 18; TEMP 36.5; O2SAT 100
[2021-07-20] MEDS: ALBUMIN HUMAN 25 GM/100 ML BTL IV ×2 (12:31→12:55)
--- NOTE | 2021-07-20 12:31 | DI.RAD_ITS ---
Exam(s) XR PORTABLE CHEST AP EXAM: XR PORTABLE CHEST AP CLINICAL HISTORY: Post-op thoracentesis TECHNIQUE: COMPARISON: CR XR CHEST 2V PA LATERAL from 07/20/2021 FINDINGS: Portable AP chest at 1217 hours. Previously described right pleural effusion is decreased in size po st thoracentesis. No evidence of pneumothorax. No additional new findings. IMPRESSION: RADIATION DOSE DELIVERED: Total DLP
--- NOTE | 2021-07-20 12:42 | ROE_ITS ---
Documented by User: KLEVER Bianchi 07/20/21 12:45 Date of service: 07/20/21 Time of Service: 12:42 Operative Note Operative Note DATE OF PROCEDURE: 07/20/21 PRE-OP DIAGNOSIS: SOB/Cirrhosis POST-OP DIAGNOSIS: same PROCEDURE: Pt is here today for thoracentesis for symptoms of shortness of breath. Chest x-ray was reviewed prior to beginning the procedure. Informed consent was obtained explaining risks and benefits of the procedure, including but not limited to bleeding, infection, pneumothorax, recurrence, complications of anesthesia, and other unforetold complications. PROCEDURE: The patient is brought to the procedure room and placed in the seated position. Ultrasound is used to localize the pocket on the right chest. The area is marked and then prepped and draped in the usual sterile fashion using a ChloraPrep scrub solution. 10 cc's of 1% Lidocaine is used to anesthetize the T10 interspace. The small chai is made with a #11 blade. The needle and catheter is then inserted over the top of the rib, aspirating as it is inserted. The needle is then removed. The catheter is then hooked up to the Vacutainer system and 2600 cc's of straw-colored fluid is evacuated. The catheter is removed; pressure is held. 3-0 prolene suture was used to reapproximate the skin. Sterile compression dressing is applied. Portable chest x-ray shows no pneumothorax. The patient is brought to the procedure room and placed in the supine position. Placement chosen on top in the right upper quadrant. A time-out is done. Ultrasound is used to localize the pocket. The area is prepped and draped in the usual sterile fashion using a ChloraPrep scrub solution. 6 cc's of 1% Lidocaine with epinephrine is used for local anesthetization. The abdomen is punctured and the catheter is inserted. 1300 cc of light yellow fluid is evacuated today. The catheter is removed. 3-0 prolene suture was used to re- approximate the skin. Pressure dressing is applied. The patient tolerated the procedure well without complication. Pt is given instructions in wound care, activity, medications, and warning signs: SOB, increasing in pain, chest pain, redness or temperature- if these occur, come to ED. SURGEON: Hazel Lindsey APPLIED PSYCHOLOGY TEACHER: Manuela Kessler ANESTHESIA TYPE: Local By Surgeon Refer to Anesthesia Record PATHOLOGY: none sent COMPLICATIONS: None Patient was transported to: same day Patient's condition: stable Documented by User: Hazel Lindsey DO 07/21/21 17:24
[2021-07-20 13:25] VITALS: BP 104/75; PULSE 74; RESP 20; TEMP 36; O2SAT 100
== END 2021-07-20 13:38 | disposition home or self-care (01) ==
LOC: SUR 09:41
PROVIDERS: PCP Family Medicine; Visit Provider Surgery
PROC: (CPT 32554; principal; 2021-07-20 10:45)
PROC: 0W9G3ZZ Drainage of Peritoneal Cavity, Percutaneous Approach (ICD-10-PCS; CPT 49082; 2021-07-20 10:45)
DX: K74.60 Unspecified cirrhosis of liver (principal); J91.8 Pleural effusion in other conditions classified elsewhere; R18.8 Other ascites
CPT/HCPCS: 32554; 49082; 36415; 80053; 85027; 71045; 71046; 82140; 83735; 83880; 85610; 86140

== ENCOUNTER 2021-08-03 08:32 | Day surgery (SDC) | payer MEDICARE, MEDICAID, SELFPAY | END 2021-08-03 08:52 | PROVIDERS: PCP Family Medicine; Visit Provider Surgery | DX: R69 Illness, unspecified (principal) ==

== ENCOUNTER 2021-08-09 02:46 | Outpatient (CLI) | payer MEDICARE, MEDICAID, SELFPAY ==
[2021-08-09 10:54] LABS: Source Nasal/Nares
[2021-08-09 14:32] LABS: COVID-19 PCR Negative (Negative)
== END 2021-08-09 02:47 | disposition home or self-care (01) ==
LOC: LBO 02:46
PROVIDERS: PCP Family Medicine; Visit Provider Surgery
DX: Z20.822 Contact with and (suspected) exposure to COVID-19 (principal)
CPT/HCPCS: 87635

== ENCOUNTER 2021-08-10 04:02 | Outpatient (CLI) | payer MEDICARE, MEDICAID, SELFPAY ==
[2021-08-10 12:38] LABS: HCT 30.5 % (36.0-46.0); HGB 9.9 g/dL (11.2-15.7); MCH 31.8 pg (27.0-33.0); MCHC 32.5 % (32.0-36.0); MCV 98.1 fL (80-95); MPV 9.9 fL (8.0-11.0); Platelet Count 127 10^3/uL (130-400); RBC 3.11 10^6/uL (3.93-5.22); RDW 15.8 % (11.7-14.6); RDW-SD 56.3 fL; WBC 5.58 10^3/uL (4.4-10.8)
[2021-08-10 12:48] LABS: Ammonia 130 umol/L (11-32)
[2021-08-10 12:49] LABS: INR 1.3 (0.9-1.1); Prothrombin Time 13.3 sec (9.3-11.0)
[2021-08-10 13:09] LABS: ALT 33 U/L (14-59); AST 33 U/L (15-37); Albumin 3.2 g/dL (3.4-5.0); Alkaline Phosphatase 174 U/L (46-116); Anion Gap 8.6 mmol/L (3-11); BUN 40 mg/dL (7-18); Bilirubin, Total 2.2 mg/dL (0.2-1.0); C-Reactive Protein 0.71 mg/dL (0.0-0.3); CO2 18.4 mmol/L (21.0-32.0); CREATININE 2.3 mg/dL (0.55-1.02); Calcium 8.6 mg/dL (8.5-10.1); Chloride 105 mmol/L (98-107); Glucose 93 mg/dL (74-106); Magnesium 1.8 mg/dL (1.8-2.4); NT-proBNP 5148 pg/mL (<300); Potassium 4.6 mmol/L (3.5-5.1); Sodium 132 mmol/L (136-145); Total Protein 6.6 g/dL (6.4-8.2)
== END 2021-08-10 04:03 | disposition home or self-care (01) ==
PROVIDERS: PCP Family Medicine; Visit Provider Surgery
DX: B18.2 Chronic viral hepatitis C (principal); E87.6 Hypokalemia; K74.69 Other cirrhosis of liver; N18.4 Chronic kidney disease, stage 4 (severe)
CPT/HCPCS: 36415; 80053; 85027; 82140; 83735; 83880; 85610; 86140

== ENCOUNTER 2021-08-10 12:49 | Day surgery (SDC) | payer MEDICARE, MEDICAID, SELFPAY ==
--- NOTE | 2021-08-10 | DI.RAD_ITS ---
Exam(s) XR PORTABLE CHEST AP EXAM: XR PORTABLE CHEST AP CLINICAL HISTORY: s/p thoro. pt is in [facility] TECHNIQUE: COMPARISON: CR XR CHEST 2V PA LATERAL from 08/10/2021 FINDINGS: Portable post thoracentesis film 1608 hours. Heart is mildly enlarged. There is decreased size of r ight pleural effusion. No evidence of pneumothorax. IMPRESSION: RADIATION DOSE DELIVERED: Total DLP
--- NOTE | 2021-08-10 12:52 | DI.RAD_ITS ---
Exam(s) XR CHEST 2V PA LATERAL EXAM: XR CHEST 2V PA LATERAL CLINICAL HISTORY: pre-op for para/thoracentesis,pleural effusion, j90 TECHNIQUE: COMPARISON: CR XR CHEST 2V PA LATERAL from 07/20/2021 CR XR PORTABLE CHEST AP from 07/20/2021 FINDINGS: There is a moderate-sized left pleural effusion which has reaccumulated since prior examination of No vember 2nd and is grossly unchanged in size since that time. Right and left lungs remain clear. The re is mild cardiomegaly. IMPRESSION: Recurrent right pleural effusion. RADIATION DOSE DELIVERED: Total DLP
[2021-08-10 12:59] VITALS: BP 114/71; PULSE 86; RESP 18; TEMP 36.1; O2SAT 94
[2021-08-10] MEDS: Normal Saline Flush 10 ML SYR (13:49)
--- NOTE | 2021-08-10 16:01 | W.PM.DSUDISC ---
Discharge Plan Disposition Patient Disposition: HOME Condition: Stable Discharge Details Reason For Visit: fluid removal Attending Provider: Hazel Lindsey Primary Care Provider: Dillon Muller [place] Meds and New Rx's Prescriptions: Continued metoprolol tartrate 25 mg tablet 50 mg PO BID RF: 0 famotidine 20 mg tablet 20 mg PO DAILY PRNRF: 0 nitroglycerin [Nitrostat] 0.4 mg tablet, sublingual 0.4 mg sublingual Q5M PRNRF: 0 lactulose 20 gram/30 mL solution 30 g PO BID RF: 0 ribavirin 200 mg capsule 400 mg PO .qod RF: 0 furosemide 20 mg tablet 40 mg PO DAILY RF: 0 spironolactone 50 mg tablet 100 mg PO DAILY RF: 0 Xifaxan 550 mg tablet 550 mg PO BID RF: 0 magnesium oxide 400 mg magnesium tablet 400 mg PO DAILY RF: 0 ledipasvir-sofosbuvir [Harvoni] 90-400 mg tablet 90 - 400 tab PO DAILY RF: 0 Discharge Instructions Additional Instructions: -f/u in office 08/19 for suture removal. You will need to call for an appt. -Repeat procedure 08/24. Activity:: Activity as Tolerated Remove Dressings/Wound Care:: 24 hours Shower/Bathe:: 24 hours Diet:: high protein Discharge Orders Discharge Orders: Discharge Order (Routine); Ordered 08/10/21 Ordered By: Hazel Lindsey Discharge Data Discharge Date/Time-TO BE ENTERED AT DEPARTURE: 08/10/21 17:16 DS: Diagnosis Discharge Diagnosis (1) Cardiomyopathy: Status: Active (2) Congestive heart failure: Status: Acute (3) Pleural effusion: Status: Acute (4) Chronic hepatitis C: Status: Chronic (5) CKD (chronic kidney disease) stage 4, GFR 15-29 ml/min: Status: Acute (6) Atrial fibrillation with controlled ventricular rate: Status: Acute (7) Advanced hepatic cirrhosis: Status: Chronic (8) Nephrotic syndrome: Status: Acute (9) Hepatic encephalopathy: Status: Acute (10) 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
[2021-08-10 16:08] VITALS: BP 111/84; PULSE 77; RESP 18; TEMP 36.3; O2SAT 100
[2021-08-10] MEDS: Normal Saline Flush 10 ML SYR IV ×2 (16:18→17:11)
[2021-08-10] MEDS: ALBUMIN HUMAN 25 GM/100 ML BTL IV ×2 (16:18→16:50)
--- NOTE | 2021-08-10 16:28 | W.PM.DSUDISC ---
Discharge Plan Disposition Patient Disposition: HOME Condition: Stable Discharge Details Reason For Visit: fluid removal Attending Provider: Hazel Lindsey Primary Care Provider: Dillon Muller Home Meds and New Rx's Prescriptions: Continued metoprolol tartrate 25 mg tablet 50 mg PO BID RF: 0 famotidine 20 mg tablet 20 mg PO DAILY PRNRF: 0 nitroglycerin [Nitrostat] 0.4 mg tablet, sublingual 0.4 mg sublingual Q5M PRNRF: 0 lactulose 20 gram/30 mL solution 30 g PO BID RF: 0 ribavirin 200 mg capsule 400 mg PO .qod RF: 0 furosemide 20 mg tablet 40 mg PO DAILY RF: 0 spironolactone 50 mg tablet 100 mg PO DAILY RF: 0 Xifaxan 550 mg tablet 550 mg PO BID RF: 0 magnesium oxide 400 mg magnesium tablet 400 mg PO DAILY RF: 0 ledipasvir-sofosbuvir [Harvoni] 90-400 mg tablet 90 - 400 tab PO DAILY RF: 0 Discharge Instructions Additional Instructions: -f/u in office 08/19 for suture removal. You will need to call for an appt. -Repeat procedure 08/24. Activity:: Activity as Tolerated Remove Dressings/Wound Care:: 24 hours Shower/Bathe:: 24 hours Diet:: high protein Discharge Orders Discharge Orders: Discharge Order (Routine); Ordered 08/10/21 Ordered By: Hazel Lindsey DS: Diagnosis Discharge Diagnosis (1) Cardiomyopathy: Status: Active (2) Congestive heart failure: Status: Acute (3) Pleural effusion: Status: Acute (4) Chronic hepatitis C: Status: Chronic (5) CKD (chronic kidney disease) stage 4, GFR 15-29 ml/min: Status: Acute (6) Atrial fibrillation with controlled ventricular rate: Status: Acute (7) Advanced hepatic cirrhosis: Status: Chronic (8) Nephrotic syndrome: Status: Acute (9) Hepatic encephalopathy: Status: Acute (10) 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
--- NOTE | 2021-08-10 16:32 | W.PM.OP ---
Date of service: 08/10/21 Time of Service: 16:32 Operative Note Operative Note DATE OF PROCEDURE: 08/10/21 PRE-OP DIAGNOSIS: cirrhosis secondary to Hep C POST-OP DIAGNOSIS: same PROCEDURE: thorcetisis and paracentisis SURGEON: Hazel Lindsey SUPERINTENDENT MAINTENANCE [employer]PORTS: Manuela Kessler ANESTHESIA TYPE: Local By Surgeon Refer to Anesthesia Record ESTIMATED BLOOD LOSS: 2 PATHOLOGY: none sent COMPLICATIONS: None Patient was transported to: same day Patient's condition: stable Procedure Description: REPORT OF OPERATION Pt is here today for thoracentesis for symptoms of shortness of breath. Chest x-ray was reviewed prior to beginning the procedure. Informed consent was obtained explaining risks and benefits of the procedure, including but not limited to bleeding, infection, pneumothorax, recurrence, complications of anesthesia, and other unforetold complications. PROCEDURE: The patient is brought to the procedure room and placed in the seated position. Ultrasound is used to localize the pocket on the right chest. The area is marked and then prepped and draped in the usual sterile fashion using a ChloraPrep scrub solution. 10 cc's of 1% Lidocaine is used to anesthetize the T10 interspace. The small chai is made with a #11 blade. The needle and catheter is then inserted over the top of the rib, aspirating as it is inserted. The needle is then removed. The catheter is then hooked up to the Vacutainer system and 1700 cc's of straw-colored fluid is evacuated. The catheter is removed; pressure is held. Sterile compression dressing is applied. The patient is brought to the procedure room and placed in the supine position. Placement chosen on top in the right upper quadrant. A time-out is done. Ultrasound is used to localize the pocket. The area is prepped and draped in the usual sterile fashion using a ChloraPrep scrub solution. 20 cc's of 1% Lidocaine with epinephrine is used for local anesthetization. The abdomen is punctured and the catheter is inserted. 4300 liters of light yellow fluid is evacuated today. The catheter is removed. Pressure dressing is applied. The patient tolerated the procedure well without complication. Portable chest x-ray shows no pneumothorax. Pt is given instructions in wound care, activity, medications, and warning signs: SOB, increasing in pain, chest pain, redness or temperature- if these occur, come to ED.
--- NOTE | 2021-08-10 16:39 | DI.VRAD_ITS ---
PROCEDURE INFORMATION: Exam: XR Chest Exam date and time: 08/10/2021 4:00 PM Age: 56 years old Clinical indication: Other: S/P thorocentesis TECHNIQUE: Imaging protocol: XR of the chest. Views: 1 view. COMPARISON: CR XR CHEST 2V PA LATERAL 08/10/2021 7:56 AM FINDINGS: Lungs: No consolidation. Pleural spaces: No pneumothorax. Slightly decreased size of right-sided pleural effusion. Heart/Mediastinum: Cardiomediastinal silhouette similar/stable. Bones/joints: Similar/stable bony structures. IMPRESSION: Persistent although slightly decreased size of right-sided pleural effusion. Dictated and Authenticated by: Albaro Wellington MD. Ordering:JEFFREY Oliva MD
== END 2021-08-10 17:16 | disposition home or self-care (01) ==
PROVIDERS: PCP Family Medicine; Visit Provider Surgery
PROC: (CPT 32554; principal; 2021-08-10 14:15)
PROC: 0W9G3ZZ Drainage of Peritoneal Cavity, Percutaneous Approach (ICD-10-PCS; CPT 49082; 2021-08-10 14:15)
DX: R18.8 Other ascites (principal); J91.8 Pleural effusion in other conditions classified elsewhere; K74.69 Other cirrhosis of liver; B19.20 Unspecified viral hepatitis C without hepatic coma
CPT/HCPCS: 32554; 49082; 36415; 80053; 85027; 71045; 71046; 82140; 83735; 83880; 85610; 86140

== ENCOUNTER → 2021-08-19 10:04 | Outpatient (BNVA) | payer MEDICARE, MEDICAID, SELFPAY | PROVIDERS: PCP Family Medicine; Referring Provider Family Medicine; Visit Provider Surgery | DX: Z48.02 Encounter for removal of sutures (principal) ==

== ENCOUNTER 2021-08-23 02:59 | Outpatient (CLI) | payer MEDICARE, SELFPAY ==
[2021-08-23 10:40] LABS: Source Nasal/Nares
[2021-08-23 14:26] LABS: COVID-19 PCR Negative (Negative)
== END 2021-08-23 03:00 | disposition home or self-care (01) ==
LOC: LBO 03:00
PROVIDERS: PCP Family Medicine; Visit Provider Surgery
DX: Z20.822 Contact with and (suspected) exposure to COVID-19 (principal)
CPT/HCPCS: 87635

== ENCOUNTER 2021-08-23 07:56 | Emergency (ER) | payer MEDICARE, MEDICAID, SELFPAY ==
[2021-08-23 07:59] VITALS: BP 107/65; PULSE 86; RESP 20; TEMP 36.3; O2SAT 99
--- NOTE | 2021-08-23 08:09 | W.ED.GENAD ---
Discharge Plan Disposition Patient Disposition: HOME Condition: Stable Discharge Details Clinical Impression: Pleural effusion, Abdominal ascites Primary Care Provider: Dillon Muller ED Provider: Shelli Cornell Home Meds and New Rx's Prescriptions: Continued metoprolol tartrate 25 mg tablet 50 mg PO BID RF: 0 famotidine 20 mg tablet 20 mg PO DAILY PRNRF: 0 nitroglycerin [Nitrostat] 0.4 mg tablet, sublingual 0.4 mg sublingual Q5M PRNRF: 0 lactulose 20 gram/30 mL solution 30 g PO BID RF: 0 ribavirin 200 mg capsule 400 mg PO .qod RF: 0 furosemide 20 mg tablet 40 mg PO DAILY RF: 0 spironolactone 50 mg tablet 100 mg PO DAILY RF: 0 potassium chloride 20 mEq tablet,ER particles/crystals 20 meq PO DAILY RF: 0 Xifaxan 550 mg tablet 550 mg PO BID RF: 0 magnesium oxide 400 mg magnesium tablet 400 mg PO DAILY RF: 0 ledipasvir-sofosbuvir [Harvoni] 90-400 mg tablet 90 - 400 tab PO DAILY RF: 0 Discharge Instructions Instructions: Pleural Effusion (ED), Ascites (ED) Additional Instructions: Plan will be for you to have your paracentesis and thoracentesis completed tomorrow as previously scheduled. You may go today to the testing tent as you had been previously advised to have your preoperative COVID-19 testing. Please call the general surgery clinic, number listed below, to discuss findings for tomorrow and see when you also need to come in for your laboratory testing. If you develop fever/chills or other new/worsening symptom please seek care urgently with again. Otherwise, please keep your appointment tomorrow. Referrals: Dillon Muller DO [Primary Care Provider] - Hazel Linsdey DO [OSTEOPATHIC DOCTOR] - Medical Decision Making Patient is a 56-year-old female presenting today requesting thoracentesis in her. Patient is scheduled for these procedures tomorrow. Feels like her abdomen is enlarging more, states that itchy and that she is more short of breath. She denies any fevers or chills. She denies any chest pain. Symptoms are not worse with exertion or when laying flat. Feels with this is more of a constant sensation. States that she is having difficulty sleeping and has to reposition frequently. Past medical history is pertinent for cardiomyopathy, CHF, pleural effusions, ADHD, hepatitis C, CKD, atrial fibrillation, advanced hepatic cirrhosis, nephrotic syndrome, hepatic encephalopathy. On exam, patient appears nontoxic. She is laying supine in the stretcher with her hands behind her head, breathing comfortably. Her oxygen is 99% on room air. Vital signs are stable. She does sound diminished in the right lower lobe. Cough is appreciated. Normal cardiac exam. She does have notable ascites with fluid wave. The bruising from her previous paracentesis and thoracentesis completed 2 weeks ago is evident on physical exam. No surrounding erythema, warmth or drainage. Consulted with Dr. Lindsey. If the patient is stable and does not show any evidence to suggest respiratory distress, we both feel that it would be safer for the patient to have procedure completed tomorrow during her normal schedule time. Patient has scheduled labs to be completed tomorrow prior to procedure. She supposed to have COVID-19 testing today at the testing tent. I did encourage the patient continue with this plan. I discussed with the patient the importance of having these procedures completed in the safest way possible, she is agreeable with this plan. Patient is concerned that she does not know the time of her appointment tomorrow. I did give her the number to be able to call to figure this out. She would like to the testing tent now to have her COVID-19 testing. She is concerned that her skin is quite dry me discussed appropriate moisturizers. I also advised on how she may position herself that she is more comfortable at night. Return precautions were discussed. All of her questions concerns were addressed and she is in agreement with this plan. HPI General Mode of arrival: ambulatory. Date/Time Provider Initiated Documentation: 08/23/21 07:57. Limitations to Documentation: no limitations. Information obtained by: patient, family (significant other), RN notes reviewed and old records reviewed. HPI Narrative: Patient is a 56-year-old female, well-known to myself in the department, presenting today requesting a paracentesis in the pieces. Patient does have this completed every 2 weeks, is scheduled to have this done tomorrow with general surgery. She reports that she comes in today because she had increase shortness of breath. She denies any fevers. No vomiting. No cough. States that her skin has been very dry and itchy. States that her abdomen is getting larger on that more difficult for her to eat because of the ascites. Related Data Home Medications Medication Instructions Recorded Confirmed Xifaxan 550 mg PO BID 04/18/20 08/23/21 metoprolol tartrate 25 mg tablet 50 mg PO BID 10/12/20 08/23/21 famotidine 20 mg tablet 20 mg PO DAILY PRN 04/05/21 08/20/21 nitroglycerin 0.4 mg sublingual 0.4 mg SUBLINGUAL Q5M PRN 04/05/21 08/23/21 tablet magnesium oxide 400 mg PO DAILY 05/25/21 08/23/21 ledipasvir-sofosbuvir [Harvoni] 90 - 400 tab PO DAILY 06/08/21 08/23/21 furosemide 20 mg tablet 40 mg PO DAILY tab 07/29/21 08/23/21 lactulose 20 gram/30 mL oral 30 g PO BID ml 07/29/21 08/23/21 solution ribavirin 200 mg capsule 400 mg PO .qod cap 07/29/21 08/23/21 spironolactone 50 mg tablet 100 mg PO DAILY tab 07/29/21 08/23/21 potassium chloride 20 meq PO DAILY 08/23/21 08/23/21 Allergies Allergy/AdvReac Type Severity Reaction Status Date / Time amphetamine aspartate Allergy Severe Facial Verified 08/23/21 08:05 [From Adderall] Swelling, Blisters, Tongue Swelling, Rash, amphetamine sulfate Allergy Severe Facial Verified 08/23/21 08:05 [From Adderall] Swelling, Blisters, Tongue Swelling, Rash, dextroamphetamine saccharate Allergy Severe Facial Verified 08/23/21 08:05 [From Adderall] Swelling, Blisters, Tongue Swelling, Rash, dextroamphetamine sulfate Allergy Severe Facial Verified 08/23/21 08:05 [From Adderall] Swelling, Blisters, Tongue Swelling, Rash, Penicillins Allergy Intermediate Hives, Verified 08/23/21 08:05 Rash, Tongue Swelling codeine AdvReac Mild Constipatio Verified 08/23/21 08:05 n General Stated Complaint: GenMedical JOE: 3 Review of Systems Constitutional Constitutional: Reports as per HPI, Denies chills, Reports fatigue, Denies fever(s) and Denies headache(s) ENT Ears, Nose, Mouth, and Throat: Denies headache(s) Cardiovascular Cardiovascular: Reports as per HPI, Denies chest pain, Denies chest pain with activity, Reports dyspnea (constant, denies it being worse with activity or position), Denies dyspnea on exertion and Denies orthopnea Respiratory Respiratory: Reports as per HPI, Denies cough, Reports dyspnea (constant, denies it being worse with activity or position) and Denies dyspnea on exertion Gastrointestinal Gastrointestinal: Reports as per HPI, Reports bloating, Denies hematochezia, Denies change in bowel habits, Reports nausea (feels that the water in my belly pushes up so I want to vomit) and Denies vomiting (no vomiting today) Musculoskeletal Musculoskeletal: Reports as per HPI and Denies back pain Integumentary/Breasts Skin/Breast: Reports as per HPI, Reports dry skin, Reports pruritus and Denies unusual bruising (bruising at areas of previous procedures) Neurologic Neurologic: Reports as per HPI and Denies headache(s) Endocrine Endocrine: Reports fatigue [facility] Active Problem List (Updated 08/23/21 @ 08:24 by KLEVER Alan) Abdominal ascites (Acute) Cardiomyopathy (Active 04/22/13) Congestive heart failure (Acute 04/22/13) Pleural effusion (Acute 04/22/13) Tachycardia (Active 04/22/13) History of gallstones (Active) Depressive disorder (Active) Anxiety (Active) Adult attention deficit hyperactivity disorder (Active) Constipation (Active) Irritable colon (Active) Smoking history (Active) Elevated MCV (Active) History of surgery (Active) Chronic hepatitis C (Chronic) CKD (chronic kidney disease) stage 4, GFR 15-29 ml/min (Acute) Atrial fibrillation with controlled ventricular rate (Acute) Advanced hepatic cirrhosis (Chronic) Nephrotic syndrome (Acute) Creatinine elevation (Acute) Hypokalemia (Acute) Prerenal azotemia (Acute) Non-sustained ventricular tachycardia (Acute) Cirrhosis of liver with ascites (Acute) Hypokalemia due to excessive renal loss of potassium (Acute) Hydrothorax (Acute) Hepatic encephalopathy (Acute) Seasonal allergic rhinitis (Acute) 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) (Acute) Acute hyponatremia (Acute) Acute hepatic encephalopathy (Acute) Medication reaction (Acute) Medical History (Updated 08/23/21 @ 08:24 by KLEVER Alan) Anxiety Attention deficit hyperactivity disorder, combined type 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 History of abdominal paracentesis Irritable colon Renal failure syndrome Surgical History section x2 History of ileal conduit History of knee replacement History of thoracentesis (~08/03/20) 08/10/20 08/21/20 History of thoracentesis (~08/31/20) Hx of tubal ligation S/P abdominal paracentesis (~08/03/20) Family History Mother Hypertensive disorder, systemic arterial Cancer Cervical Father Hypertensive disorder, systemic arterial Maternal Grandfather Diabetes Maternal Grandmother Cancer Ovarian Social History Smoking/Tobacco Use Status: Former Tobacco Use Quit Date: 09/18/18 Smoking risk assessment performed?: Yes Alcohol Intake: former Drug use: Never Substance use type: does not use Adopted: No Caregiver/Support person: No Foster care: No Household members: family Housing: house Number of Children: 4 number of grandchildren: 2 Communication Needs: None Do you need help understanding health information?: Often current occupation: Used to work for [employer] Current gender identity: female What is your relationship status?: How often do you talk on the phone with friends or family?: three or more times per week Panel score (0-1 are the most socially isolated patients): 2 What type of physical activity do you participate in: none Seatbelt use: always Drive intox or ride w/intox front loader residential driver: No Working smoke detector in home: Yes Fire extinguisher in home: Yes Carbon monox detector in home: Yes Do you feel safe at home: Yes Do you feel safe in your relationship?: Yes Exam Const General: cooperative, comfortable, no acute distress and ill appearing chronically Nutritional Appearance: average body habitus Orientation: alert and awake Resp Effort & Inspection: normal respiratory effort, able to speak in complete sentences and no respiratory distress Auscultation: diminished lung sounds on the right in the lower lung [place], no rales, no rhonchi and no wheezes Cardio Rate: regular rate Rhythm: regular rhythm Heart Sounds: S1 normal and S2 normal GI Inspection: edema, distended and other (dry skin, puncture wound right side with no surrounding erythema, warmth, d) Palpation: soft, nontender and ascites Percussion: fluid wave Auscultation: hypoactive bowel sounds Skin General skin exam: no rashes or lesions noted Trauma: no lacerations or abrasions Neuro General: patient alert and patient awake Cognition: normal cognition Speech: speech normal Gait: normal gait Psych Appearance: grossly normal Mental Status: mental status grossly normal Speech and Movement: speech and movement normal Course Vital Signs Vital signs: Vital Signs Temperature 36.3 C L 08/23/21 07:59 Pulse 86 08/23/21 07:59 Respiratory Rate 20 08/23/21 07:59 Blood Pressure 107/65 08/23/21 07:59 Pulse Oximetry 99 08/23/21 07:59 Temperature 36.3 C L 08/23/21 07:59 Temperature Source Temporal Artery Scan 08/23/21 07:59 Pulse 86 08/23/21 07:59 Respiratory Rate 20 08/23/21 07:59 Respiratory Effort 08/23/21 08:03 Blood Pressure 107/65 08/23/21 07:59 Blood Pressure Position Sitting 08/23/21 07:59 Pulse Oximetry 99 08/23/21 07:59 Oxygen Delivery Method Room Air 08/23/21 07:59 Oxygen Flow Rate 0 08/23/21 07:59 Pain Level 9 08/23/21 07:59
[2021-08-23 08:10] VITALS: RESP 20
== END 2021-08-23 08:29 | disposition home or self-care (01) ==
PROVIDERS: Emergency Provider Physician Assistant; PCP Family Medicine
DX: J90 Pleural effusion, not elsewhere classified (principal); R18.8 Other ascites
CPT/HCPCS: 87635; 99281; 99282

== ENCOUNTER 2021-08-24 02:47 | Outpatient (CLI) | payer MEDICARE, MEDICAID, SELFPAY ==
[2021-08-24 10:38] LABS: HCT 28.3 % (36.0-46.0); HGB 9.1 g/dL (11.2-15.7); MCH 31.4 pg (27.0-33.0); MCHC 32.2 % (32.0-36.0); MCV 97.6 fL (80-95); MPV 10.4 fL (8.0-11.0); Platelet Count 117 10^3/uL (130-400); RDW 16.7 % (11.7-14.6); RDW-SD 59.6 fL; WBC 4.82 10^3/uL (4.4-10.8)
[2021-08-24 10:47] LABS: INR 1.4 (0.9-1.1); Prothrombin Time 14.4 sec (9.3-11.0)
[2021-08-24 10:54] LABS: Ammonia 128 umol/L (11-32)
[2021-08-24 11:03] LABS: ALT 28 U/L (14-59); AST 31 U/L (15-37); Alkaline Phosphatase 143 U/L (46-116); Anion Gap 7.3 mmol/L (3-11); BUN 28 mg/dL (7-18); C-Reactive Protein 0.64 mg/dL (0.0-0.3); CO2 22.7 mmol/L (21.0-32.0); CREATININE 1.8 mg/dL (0.55-1.02); Calcium 8.3 mg/dL (8.5-10.1); Chloride 108 mmol/L (98-107); Estimated GFR 29.32 (mL/min/1.73m2); Glucose 95 mg/dL (74-106); Magnesium 1.8 mg/dL (1.8-2.4); NT-proBNP 5341 pg/mL (<300); Potassium 3.8 mmol/L (3.5-5.1); Sodium 138 mmol/L (136-145); Total Protein 6.2 g/dL (6.4-8.2)
== END 2021-08-24 02:48 | disposition home or self-care (01) ==
LOC: LBO 02:47
PROVIDERS: PCP Family Medicine; Visit Provider Surgery
DX: I48.91 Unspecified atrial fibrillation (principal); K74.69 Other cirrhosis of liver; B19.20 Unspecified viral hepatitis C without hepatic coma; N18.4 Chronic kidney disease, stage 4 (severe)
CPT/HCPCS: 36415; 80053; 85027; 82140; 83735; 83880; 85610; 86140

== ENCOUNTER 2021-08-24 10:48 | Day surgery (SDC) | payer MEDICARE, MEDICAID, SELFPAY ==
--- NOTE | 2021-08-24 10:50 | DI.RAD_ITS ---
Exam(s) XR CHEST 2V PA LATERAL EXAM: XR CHEST 2V PA LATERAL CLINICAL HISTORY: pre procedure,PRE THORACENTESIS, PLEURAL EFFUSION,J90 TECHNIQUE: 2D digital imaging was performed of the chest. Two images were obtained. PA and lateral views were obtained. COMPARISON: CR XR CHEST 2V PA LATERAL from 08/10/2021 CR,XR XR PORTABLE CHEST AP from 08/10/2021 CR,XR XR PORTABLE CHEST AP from 08/10/2021 FINDINGS: MEDIASTINUM: Normal. HEART: Normal. PULMONARY VASCULATURE: Normal. LUNGS: Clear. PLEURAL SPACE: A small to moderate size right pleural effusion has reaccumulated. No pneumothorax. BONE:Within normal limits for the patient's age. Stable thoracic scoliosis. OTHER FINDINGS:Normal. IMPRESSION: Small to moderate right pleural effusion. DATA REPOSITORY: RADIATION DOSE DELIVERED:
[2021-08-24 10:58] VITALS: BP 118/80; PULSE 72; RESP 20; TEMP 37.1; O2SAT 99
[2021-08-24] MEDS: Normal Saline Flush 10 ML SYR IV ×2 (11:44→15:31)
[2021-08-24] MEDS: Sodium Bicarbonate 50 MEQ/50 ML VIAL (14:54)
[2021-08-24 15:15] VITALS: BP 99/76; PULSE 74; RESP 18; TEMP 36; O2SAT 97
--- NOTE | 2021-08-24 15:19 | W.PM.DSUDISC ---
Discharge Plan Disposition Patient Disposition: HOME Condition: Good Discharge Details Reason For Visit: fluid removal Attending Provider: Hazel Lindsey Primary Care Provider: Dillon Muller Home Meds and New Rx's Prescriptions: No Action metoprolol tartrate 25 mg tablet 50 mg PO BID RF: 0 famotidine 20 mg tablet 20 mg PO DAILY PRNRF: 0 nitroglycerin [Nitrostat] 0.4 mg tablet, sublingual 0.4 mg sublingual Q5M PRNRF: 0 lactulose 20 gram/30 mL solution 30 g PO BID RF: 0 ribavirin 200 mg capsule 400 mg PO .qod RF: 0 furosemide 20 mg tablet 40 mg PO DAILY RF: 0 spironolactone 50 mg tablet 100 mg PO DAILY RF: 0 potassium chloride 20 mEq tablet,ER particles/crystals 20 meq PO DAILY RF: 0 Xifaxan 550 mg tablet 550 mg PO BID RF: 0 magnesium oxide 400 mg magnesium tablet 400 mg PO DAILY RF: 0 ledipasvir-sofosbuvir [Harvoni] 90-400 mg tablet 90 - 400 tab PO DAILY RF: 0 Discharge Instructions Activity:: Activity as Tolerated Remove Dressings/Wound Care:: 24 hours Diet:: high protein DS: Diagnosis Discharge Diagnosis (1) Abdominal ascites: Status: Acute (2) Cardiomyopathy: Status: Active (3) Pleural effusion: Status: Acute (4) CKD (chronic kidney disease) stage 4, GFR 15-29 ml/min: Status: Acute (5) Atrial fibrillation with controlled ventricular rate: Status: Acute (6) Advanced hepatic cirrhosis: Status: Chronic (7) Nephrotic syndrome: Status: Acute (8) Chronic hepatitis C: Status: Chronic (9) Hepatic encephalopathy: Status: Acute (10) 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
--- NOTE | 2021-08-24 15:22 | ROE_ITS ---
Date of service: 08/24/21 Time of Service: 15:22 Operative Note Operative Note DATE OF PROCEDURE: 08/24/21 PRE-OP DIAGNOSIS: hep c induced cirrhosis POST-OP DIAGNOSIS: same PROCEDURE: thoro and para SURGEON: Hazel Lindsey ANESTHESIA TYPE: Local By Surgeon Refer to Anesthesia Record Procedure Description: Pt is here today for thoracentesis for symptoms of shortness of breath. Chest x-ray was reviewed prior to beginning the procedure. Informed consent was obt ained explaining risks and benefits of the procedure, including but not limited to bleeding, infection, pneumothorax, recurrence, complications of anesthesia, and other unforetold complications. PROCEDURE: The patient is brought to the procedure room and placed in the seated position. Ultrasound is used to localize the pocket on the right chest. The area is marked and then prepped and draped in the usual sterile fashion using a ChloraPrep scrub solution. 10 cc's of 1% Lidocaine is used to anesthetize the T10 interspace. The small chai is made with a #11 blade. The needle and catheter is then inserted over the top of the rib, aspirating as it is inserted. The needle is then removed. The catheter is then hooked up to the Vacutainer system and 1600 cc's of straw-colored fluid is evacuated. The catheter is removed; pressure is held. Sterile compression dressing is applied. Ultrasound is used to localize the pocket. The area is prepped and draped in the usual sterile fashion using a ChloraPrep scrub solution. 20 cc's of 1% Lidocaine with epinephrine is used for local anesthetization. The abdomen is punctured and the catheter is inserted. 1600 liters of light yellow fluid is evacuated today. The catheter is removed. Pressure dressing is applied. The patient tolerated the procedure well without complication. Portable chest x-ray shows no pneumothorax. Pt is given instructions in wound care, activity, medications, and warning signs: SOB, increasing in pain, chest pain, redness or temperature- if these occur, come to ED.
--- NOTE | 2021-08-24 15:30 | DI.RAD_ITS ---
Exam(s) XR PORTABLE CHEST AP EXAM: XR PORTABLE CHEST AP CLINICAL HISTORY: s/p thoro TECHNIQUE: 2D digital imaging was performed of the chest. One image was obtained. An AP view was ob tained. COMPARISON: CR XR CHEST 2V PA LATERAL from 08/24/2021 FINDINGS: MEDIASTINUM: Normal. HEART: Normal. PULMONARY VASCULATURE: Normal. LUNGS: Clear. PLEURAL SPACE: There is little change in the right pleural effusion following thoracentesis. No pneu mothorax is present. BONE:Within normal limits for the patient's age. OTHER FINDINGS:Normal. IMPRESSION: No pneumothorax following thoracentesis. Persistent small right pleural effusion. DATA REPOSITORY: RADIATION DOSE DELIVERED:
[2021-08-24] MEDS: ALBUMIN HUMAN 25 GM/100 ML BTL IV ×2 (15:31→16:00)
== END 2021-08-24 16:40 | disposition home or self-care (01) ==
PROVIDERS: PCP Family Medicine; Visit Provider Surgery
PROC: (CPT 32554; principal; 2021-08-24 12:15)
DX: R18.8 Other ascites (principal); B19.20 Unspecified viral hepatitis C without hepatic coma; J91.8 Pleural effusion in other conditions classified elsewhere; K74.69 Other cirrhosis of liver
CPT/HCPCS: 32554; 49082; 36415; 80053; 85027; 96365; 96366; 71045; 71046; 82140; 83735; 83880; 85610; 86140

== ENCOUNTER 2021-09-06 01:58 | Outpatient (CLI) | payer MEDICARE, MEDICAID, SELFPAY ==
[2021-09-06 10:34] LABS: Source Nasal/Nares
[2021-09-06 14:01] LABS: COVID-19 PCR Negative (Negative)
== END 2021-09-06 01:59 | disposition home or self-care (01) ==
LOC: LBO 01:58
PROVIDERS: PCP Family Medicine; Visit Provider Surgery
DX: Z20.822 Contact with and (suspected) exposure to COVID-19 (principal); Z01.818 Encounter for other preprocedural examination
CPT/HCPCS: 87635

== ENCOUNTER 2021-09-07 02:32 | Outpatient (CLI) | payer MEDICARE, MEDICAID, SELFPAY ==
[2021-09-07 08:08] LABS: HCT 31.7 % (36.0-46.0); HGB 9.9 g/dL (11.2-15.7); MCH 30.7 pg (27.0-33.0); MCHC 31.2 % (32.0-36.0); MCV 98.1 fL (80-95); MPV 9.5 fL (8.0-11.0); Platelet Count 127 10^3/uL (130-400); RBC 3.23 10^6/uL (3.93-5.22); RDW 17.3 % (11.7-14.6); RDW-SD 62.4 fL; WBC 5.39 10^3/uL (4.4-10.8)
[2021-09-07 08:20] LABS: INR 1.5 (0.9-1.1); Prothrombin Time 15.2 sec (9.3-11.0)
[2021-09-07 08:24] LABS: Ammonia 46 umol/L (11-32)
[2021-09-07 08:32] LABS: ALT 28 U/L (14-59); AST 31 U/L (15-37); Alkaline Phosphatase 172 U/L (46-116); Anion Gap 5.7 mmol/L (3-11); BUN 20 mg/dL (7-18); Bilirubin, Total 2.4 mg/dL (0.2-1.0); C-Reactive Protein 0.54 mg/dL (0.0-0.3); CO2 26.3 mmol/L (21.0-32.0); CREATININE 1.6 mg/dL (0.55-1.02); Calcium 8.4 mg/dL (8.5-10.1); Chloride 106 mmol/L (98-107); Estimated GFR 33.59 (mL/min/1.73m2); Glucose 105 mg/dL (74-106); Magnesium 1.7 mg/dL (1.8-2.4); NT-proBNP 3051 pg/mL (<300); Potassium 3.8 mmol/L (3.5-5.1); Sodium 138 mmol/L (136-145); Total Protein 6.1 g/dL (6.4-8.2)
== END 2021-09-07 02:33 | disposition home or self-care (01) ==
LOC: LBO 02:32
PROVIDERS: PCP Family Medicine; Visit Provider Surgery
DX: B18.2 Chronic viral hepatitis C (principal); N18.4 Chronic kidney disease, stage 4 (severe); K74.69 Other cirrhosis of liver
CPT/HCPCS: 36415; 80053; 85027; 82140; 83735; 83880; 85610; 86140

== ENCOUNTER 2021-09-07 08:14 | Day surgery (SDC) | payer MEDICARE, MEDICAID, SELFPAY ==
--- NOTE | 2021-09-06 12:38 | W.PM.DSUDISC ---
Discharge Plan Disposition Patient Disposition: HOME Condition: Good Discharge Details Reason For Visit: para & thorocentisis Attending Provider: Hazel Lindsey Primary Care Provider: Dillon Muller Home Meds and New Rx's Prescriptions: No Action metoprolol tartrate 25 mg tablet 50 mg PO BID RF: 0 famotidine 20 mg tablet 20 mg PO DAILY PRNRF: 0 nitroglycerin [Nitrostat] 0.4 mg tablet, sublingual 0.4 mg sublingual Q5M PRNRF: 0 lactulose 20 gram/30 mL solution 30 g PO BID RF: 0 furosemide 20 mg tablet 40 mg PO DAILY RF: 0 spironolactone 50 mg tablet 100 mg PO DAILY RF: 0 ribavirin 200 mg capsule 200 mg PO QWEEK RF: 0 simethicone [Gas Relief (simethicone)] 80 mg tablet,chewable 80 mg PO Q6H PRN (Reason: Flatulence) RF: 0 polyethylene glycol 3350 [Miralax] 17 gram/dose powder 17 g PO DAILY RF: 0 potassium chloride 20 mEq tablet,ER particles/crystals 20 meq PO DAILY RF: 0 Xifaxan 550 mg tablet 550 mg PO BID RF: 0 magnesium oxide 400 mg magnesium tablet 400 mg PO DAILY RF: 0 ledipasvir-sofosbuvir [Harvoni] 90-400 mg tablet 90 - 400 tab PO DAILY RF: 0 Discharge Instructions Additional Instructions: Office will follow up with next appt. repeat in 2 weeks time- 09/21/21. -high protein diet fluid restrictions resume normal activies in 24hrs Discharge Orders Discharge Orders: Discharge Order (Routine); Ordered 09/06/21 Ordered By: Hazel Lindsey Discharge Data Discharge Date/Time-TO BE ENTERED AT DEPARTURE: 09/07/21 13:24 Discharge Comment: Pt d/c'd to daughter in personal vehicle. 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
--- NOTE | 2021-09-07 | DI.RAD_ITS ---
Exam(s) XR PORTABLE CHEST AP EXAM: XR PORTABLE CHEST AP CLINICAL HISTORY: s/p thorocentisis TECHNIQUE: 2D digital imaging was performed of the chest. One image was obtained. An AP view was ob tained. COMPARISON: CR XR PORTABLE CHEST AP from 08/24/2021 CR XR CHEST 2V PA LATERAL from 09/07/2021 CR XR CHEST 2V PA LATERAL from 09/07/2021 FINDINGS: MEDIASTINUM: Normal. HEART: Normal. PULMONARY VASCULATURE: Normal. LUNGS: Clear. PLEURAL SPACE: There has been significant decrease in size of the right pleural effusion. A small ri ght pleural effusion persists. There is no pneumothorax. BONE:Within normal limits for the patient's age. OTHER FINDINGS:Normal. IMPRESSION: Interval decrease in size of the right pleural effusion following thoracentesis. A persistent small right pleural effusion is present. DATA REPOSITORY: RADIATION DOSE DELIVERED:
--- NOTE | 2021-09-07 06:45 | DI.RAD_ITS ---
Exam(s) XR CHEST 2V PA LATERAL EXAM: XR CHEST 2V PA LATERAL CLINICAL HISTORY: PRE THORACENTESIS, PLEURAL EFFUSION,J90 TECHNIQUE: 2D digital imaging was performed of the chest. Two images were obtained. PA and lateral views were obtained. COMPARISON: CR XR CHEST 2V PA LATERAL from 08/24/2021 FINDINGS: MEDIASTINUM: Normal. HEART: Normal. PULMONARY VASCULATURE: Normal. LUNGS: Clear. PLEURAL SPACE: There has been a reaccumulation of the right pleural effusion which now occupies at le ast half of the right hemithorax. No left pleural effusion is seen. No pneumothorax is present. BONE:Within normal limits for the patient's age. There is a persistent right convex thoracic scolios is. OTHER FINDINGS:Normal. IMPRESSION: Interval reaccumulation of the right pleural effusion. DATA REPOSITORY: RADIATION DOSE DELIVERED:
[2021-09-07 08:25] VITALS: BP 131/93; PULSE 96; RESP 22; TEMP 36.7; O2SAT 94
[2021-09-07] MEDS: Sodium Bicarbonate 50 MEQ/50 ML VIAL (11:57)
[2021-09-07 12:00] VITALS: BP 111/79; PULSE 84; RESP 18; TEMP 36.1; O2SAT 100
[2021-09-07] MEDS: ALBUMIN HUMAN 25 GM/100 ML BTL IV ×2 (12:24→13:00)
[2021-09-07] MEDS: Normal Saline Flush 10 ML SYR IVP (12:24)
--- NOTE | 2021-09-16 20:35 | ROE_ITS ---
Date of service: 09/07/21 Time of Service: 13:00 Operative Note Operative Note DATE OF PROCEDURE: 09/07/21 PRE-OP DIAGNOSIS: liver failure POST-OP DIAGNOSIS: same SURGEON: Hazel Lindsey MATTING PRESS TENDER: Manuela Kessler ANESTHESIA TYPE: Local By Surgeon Refer to Anesthesia Record ESTIMATED BLOOD LOSS: 1 PATHOLOGY: other COMPLICATIONS: None Patient was transported to: same day Procedure Description: REPORT OF OPERATION Operative Note Pt is here today for thoracentesis for symptoms of shortness of breath. Chest x-ray was reviewed prior to beginning the procedure. Informed consent was obtained explaining risks and benefits of the procedure, including but not limited to bleeding, infection, pneumothorax, recurrence, complications of anesthesia, and other unforetold complications. PROCEDURE: The patient is brought to the procedure room and placed in the seated position. Ultrasound is used to localize the pocket on the right chest. The area is marked and then prepped and draped in the usual sterile fashion using a ChloraPrep scrub solution. 10 cc's of 1% Lidocaine is used to anesthetize the T10 interspace. The small chai is made with a #11 blade. The needle and catheter is then inserted over the top of the rib, aspirating as it is inserted. The needle is then removed. The catheter is then hooked up to the Vacutainer system and 3100 cc's of straw-colored fluid is evacuated. The catheter is removed; pressure is held. Sterile compression dressing is applied. The patient is brought to the procedure room and placed in the supine position. Placement chosen on top in the right upper quadrant. A time-out is done. Ultrasound is used to localize the pocket. The area is prepped and draped in the usual sterile fashion using a ChloraPrep scrub solution. 20 cc's of 1% Lidocaine with epinephrine is used for local anesthetization. The abdomen is punctured and the catheter is inserted. 6 liters of light yellow fluid is evacuated today. The catheter is removed. Pressure dressing is applied. The patient tolerated the procedure well without complication. Portable chest x-ray shows no pneumothorax. Pt is given instructions in wound care, activity, medications, and warning signs: SOB, increasing in pain, chest pain, redness or temperature- if these occur, come to ED.
== END 2021-09-07 13:24 | disposition home or self-care (01) ==
LOC: SUR 08:15
PROVIDERS: PCP Family Medicine; Visit Provider Surgery
PROC: (CPT 32554; principal; 2021-09-07 10:00)
DX: J90 Pleural effusion, not elsewhere classified (principal); R18.8 Other ascites; R06.02 Shortness of breath
CPT/HCPCS: 32554; 36415; 80053; 85027; 96365; 71045; 71046; 82140; 83735; 83880; 85610; 86140

== ENCOUNTER 2021-09-20 01:31 | Outpatient (CLI) | payer MEDICARE, MEDICAID, SELFPAY ==
[2021-09-20 11:29] LABS: Source Nasal/Nares
[2021-09-20 14:29] LABS: COVID-19 PCR Negative (Negative)
== END 2021-09-20 01:32 | disposition home or self-care (01) ==
LOC: LBO 01:31
PROVIDERS: PCP Family Medicine; Visit Provider Surgery
DX: Z20.822 Contact with and (suspected) exposure to COVID-19 (principal)
CPT/HCPCS: 87635

== ENCOUNTER 2021-09-21 03:13 | Outpatient (CLI) | payer MEDICARE, MEDICAID, SELFPAY ==
[2021-09-21 10:08] LABS: HCT 33.8 % (36.0-46.0); HGB 10.6 g/dL (11.2-15.7); MCH 30.6 pg (27.0-33.0); MCHC 31.4 % (32.0-36.0); MCV 97.7 fL (80-95); MPV 10.4 fL (8.0-11.0); Platelet Count 164 10^3/uL (130-400); RBC 3.46 10^6/uL (3.93-5.22); RDW 17.8 % (11.7-14.6); RDW-SD 64.4 fL; WBC 5.16 10^3/uL (4.4-10.8)
[2021-09-21 10:18] LABS: Ammonia 65 umol/L (11-32)
[2021-09-21 10:30] LABS: ALT 32 U/L (14-59); AST 36 U/L (15-37); Albumin 3.2 g/dL (3.4-5.0); Alkaline Phosphatase 204 U/L (46-116); Anion Gap 5.9 mmol/L (3-11); BUN 22 mg/dL (7-18); Bilirubin, Total 2.3 mg/dL (0.2-1.0); C-Reactive Protein 0.89 mg/dL (0.0-0.3); CO2 27.1 mmol/L (21.0-32.0); CREATININE 1.6 mg/dL (0.55-1.02); Calcium 8.4 mg/dL (8.5-10.1); Chloride 104 mmol/L (98-107); Estimated GFR 33.59 (mL/min/1.73m2); Glucose 89 mg/dL (74-106); Magnesium 1.6 mg/dL (1.8-2.4); NT-proBNP 3947 pg/mL (<300); Potassium 4.2 mmol/L (3.5-5.1); Sodium 137 mmol/L (136-145); Total Protein 6.6 g/dL (6.4-8.2)
[2021-09-21 10:31] LABS: INR 1.4 (0.9-1.1); Prothrombin Time 14.1 sec (9.3-11.0)
== END 2021-09-21 03:14 | disposition home or self-care (01) ==
LOC: LBO 03:13
PROVIDERS: PCP Family Medicine; Visit Provider Surgery
DX: I50.9 Heart failure, unspecified (principal); I42.9 Cardiomyopathy, unspecified; E87.6 Hypokalemia; Z79.01 Long term (current) use of anticoagulants
CPT/HCPCS: 80053; 85027; 82140; 83735; 83880; 85610; 86140

== ENCOUNTER 2021-09-21 10:21 | Day surgery (SDC) | payer MEDICARE, MEDICAID, SELFPAY ==
--- NOTE | 2021-09-21 | DI.RAD_ITS ---
Exam(s) XR PORTABLE CHEST AP EXAM: XR PORTABLE CHEST AP CLINICAL HISTORY: s/p thorocentisis TECHNIQUE: 2D digital imaging was performed of the chest. One image was obtained. An AP view was ob tained. COMPARISON: CR XR PORTABLE CHEST AP from 09/07/2021 CR XR CHEST 2V PA LATERAL from 09/21/2021 FINDINGS: MEDIASTINUM: Normal. HEART: Normal. PULMONARY VASCULATURE: Normal. LUNGS: Clear. PLEURAL SPACE: There is a persistent right pleural effusion. The examination has a similar appearanc e to the pre thoracentesis examination. The appearance of the right hemithorax may be secondary to l oculated fluid, elevation of the right hemidiaphragm and/or atelectasis/consolidation in the right lo wer lobe. There is no pneumothorax or left pleural effusion. BONE:Within normal limits for the patient's age. OTHER FINDINGS:Normal. IMPRESSION: 1. Similar appearance of the right hemithorax following thoracentesis. This may represent a large re sidual fluid or loculated fluid, elevation of the right hemidiaphragm and/or atelectasis/consolidatio n in the right lower lobe. A CT scan of the chest may be considered for further evaluation. 2. Results of this exam have been verbally communicated with provider. DATA REPOSITORY: RADIATION DOSE DELIVERED:
--- NOTE | 2021-09-21 07:00 | DI.RAD_ITS ---
Exam(s) XR CHEST 2V PA LATERAL EXAM: XR CHEST 2V PA LATERAL CLINICAL HISTORY: pre thoracentesis, pleural effusion,j90 TECHNIQUE: 2D digital imaging was performed of the chest. Two images were obtained. PA and lateral views were obtained. COMPARISON: CR XR CHEST 2V PA LATERAL from 09/07/2021 CR XR PORTABLE CHEST AP from 09/07/2021 CR XR PORTABLE CHEST AP from 09/07/2021 FINDINGS: MEDIASTINUM: Normal. HEART: Normal. PULMONARY VASCULATURE: Normal. LUNGS: Clear. PLEURAL SPACE: There has been a reaccumulation of the right pleural effusion which now occupies appro ximately half of the right hemithorax. There is no pneumothorax or left pleural effusion. BONE:Within normal limits for the patient's age. OTHER FINDINGS:Normal. IMPRESSION: Reaccumulation of the right pleural effusion which now occupies half of the right hemithorax. DATA REPOSITORY: RADIATION DOSE DELIVERED:
[2021-09-21 10:35] VITALS: BP 129/81; PULSE 81; RESP 20; TEMP 36.6; O2SAT 95
--- NOTE | 2021-09-21 11:05 | W.PM.OP ---
Date of service: 09/21/21 Time of Service: 11:05 Operative Note Operative Note DATE OF PROCEDURE: 09/21/21 PRE-OP DIAGNOSIS: cirrhosis POST-OP DIAGNOSIS: same PROCEDURE: thora and paracentisis SURGEON: Hazel Lindsey HEALTHCARE CONSULTANT: Manuela Kessler ANESTHESIA TYPE: Local By Surgeon Refer to Anesthesia Record ESTIMATED BLOOD LOSS: 2 PATHOLOGY: none sent COMPLICATIONS: None Patient was transported to: same day Patient's condition: stable Procedure Description: REPORT OF OPERATION Operative Note Operative Note Pt is here today for thoracentesis for symptoms of shortness of breath. Chest x-ray was reviewed prior to beginning the procedure. Informed consent was obtained explaining risks and benefits of the procedure, including but not limited to bleeding, infection, pneumothorax, recurrence, complications of anesthesia, and other unforetold complications. PROCEDURE: The patient is brought to the procedure room and placed in the seated position. Ultrasound is used to localize the pocket on the right chest. The area is marked and then prepped and draped in the usual sterile fashion using a ChloraPrep scrub solution. 10 cc's of 1% Lidocaine is used to anesthetize the T10 interspace. The small chai is made with a #11 blade. The needle and catheter is then inserted over the top of the rib, aspirating as it is inserted. The needle is then removed. The catheter is then hooked up to the Vacutainer system and 2500cc's of straw-colored fluid is evacuated. The catheter is removed; pressure is held. Sterile compression dressing is applied. The patient is brought to the procedure room and placed in the supine position. Placement chosen on top in the right upper quadrant. A time-out is done. Ultrasound is used to localize the pocket. The area is prepped and draped in the usual sterile fashion using a ChloraPrep scrub solution. 20 cc's of 1% Lidocaine with epinephrine is used for local anesthetization. The abdomen is punctured and the catheter is inserted. 2700 liters of light yellow fluid is evacuated today. The catheter is removed. Pressure dressing is applied. The patient tolerated the procedure well without complication. Portable chest x-ray shows no pneumothorax. Pt is given instructions in wound care, activity, medications, and warning signs: SOB, increasing in pain, chest pain, redness or temperature- if these occur, come to ED.
[2021-09-21] MEDS: Sodium Bicarbonate 50 MEQ/50 ML VIAL (12:00)
[2021-09-21 12:29] VITALS: BP 107/71; PULSE 89; RESP 16; TEMP 36.7; O2SAT 100
[2021-09-21] MEDS: ALBUMIN HUMAN 25 GM/100 ML BTL IV ×2 (12:44→12:54)
--- NOTE | 2021-09-21 12:52 | W.PM.DSUDISC ---
Discharge Plan Disposition Patient Disposition: HOME Condition: Stable Discharge Details Reason For Visit: to dsu after Attending Provider: Hazel Lindsey Primary Care Provider: Dillon Muller Home Meds and New Rx's Prescriptions: No Action metoprolol tartrate 25 mg tablet 50 mg PO BID RF: 0 famotidine 20 mg tablet 20 mg PO DAILY PRNRF: 0 nitroglycerin [Nitrostat] 0.4 mg tablet, sublingual 0.4 mg sublingual Q5M PRNRF: 0 lactulose 20 gram/30 mL solution 30 g PO DAILY AM RF: 0 furosemide 20 mg tablet 40 mg PO DAILY RF: 0 spironolactone 50 mg tablet 100 mg PO DAILY RF: 0 ribavirin 200 mg capsule 200 mg PO QWEEK RF: 0 simethicone [Gas Relief (simethicone)] 80 mg tablet,chewable 80 mg PO Q6H PRN (Reason: Flatulence) RF: 0 polyethylene glycol 3350 [Miralax] 17 gram/dose powder 17 g PO DAILY RF: 0 potassium chloride 20 mEq tablet,ER particles/crystals 20 meq PO DAILY RF: 0 Xifaxan 550 mg tablet 550 mg PO BID RF: 0 magnesium oxide 400 mg magnesium tablet 400 mg PO DAILY RF: 0 ledipasvir-sofosbuvir [Harvoni] 90-400 mg tablet 90 - 400 tab PO DAILY RF: 0 polyethylene glycol 3350 [Miralax] 17 gram/dose Powder 17 g PO DAILY RF: 0 Discharge Instructions Activity:: Activity as Tolerated Remove Dressings/Wound Care:: 24 hours Shower/Bathe:: 24 hours Diet:: high protein Discharge Orders Discharge Orders: Discharge Order (Routine); Ordered 09/21/21 Ordered By: Hazel Lindsey DS: Diagnosis Discharge Diagnosis (1) Abdominal ascites: Status: Acute (2) Cardiomyopathy: Status: Active (3) Congestive heart failure: Status: Acute (4) Pleural effusion: Status: Acute
[2021-09-21 12:59] VITALS: BP 118/81; PULSE 84; RESP 16; TEMP 36.6; O2SAT 100
== END 2021-09-21 13:40 | disposition home or self-care (01) ==
PROVIDERS: PCP Family Medicine; Visit Provider Surgery
PROC: (CPT 32554; principal; 2021-09-21 11:15)
DX: J90 Pleural effusion, not elsewhere classified (principal); R18.8 Other ascites; K74.60 Unspecified cirrhosis of liver
CPT/HCPCS: 32554; 49082; 80053; 85027; 96365; 71045; 71046; 82140; 83735; 83880; 85610; 86140

== ENCOUNTER 2021-10-04 01:14 | Outpatient (CLI) | payer MEDICARE, MEDICAID, SELFPAY ==
[2021-10-04 10:50] LABS: Source Nasal/Nares
[2021-10-04 14:39] LABS: COVID-19 PCR Negative (Negative)
== END 2021-10-04 01:15 | disposition home or self-care (01) ==
LOC: LBO 01:15
PROVIDERS: PCP Family Medicine; Visit Provider Surgery
DX: Z20.822 Contact with and (suspected) exposure to COVID-19 (principal)
CPT/HCPCS: 87635

== ENCOUNTER 2021-10-05 02:36 | Outpatient (CLI) | payer MEDICARE, MEDICAID, SELFPAY ==
[2021-10-05 10:24] LABS: HCT 31.9 % (36.0-46.0); HGB 9.9 g/dL (11.2-15.7); MCH 30.8 pg (27.0-33.0); MCV 99.4 fL (80-95); MPV 9.7 fL (8.0-11.0); Platelet Count 132 10^3/uL (130-400); RBC 3.21 10^6/uL (3.93-5.22); RDW 18.6 % (11.7-14.6); RDW-SD 67.7 fL
[2021-10-05 10:34] LABS: Ammonia 52 umol/L (11-32)
[2021-10-05 10:43] LABS: Prothrombin Time 14.4 sec (9.3-11.0)
[2021-10-05 10:45] LABS: ALT 32 U/L (14-59); AST 33 U/L (15-37); Alkaline Phosphatase 187 U/L (46-116); Anion Gap 5.1 mmol/L (3-11); BUN 21 mg/dL (7-18); Bilirubin, Total 2.3 mg/dL (0.2-1.0); C-Reactive Protein 0.53 mg/dL (0.0-0.3); CO2 27.9 mmol/L (21.0-32.0); CREATININE 1.3 mg/dL (0.55-1.02); Calcium 8.4 mg/dL (8.5-10.1); Chloride 105 mmol/L (98-107); Estimated GFR 42.68 (mL/min/1.73m2); Glucose 106 mg/dL (74-106); Magnesium 1.7 mg/dL (1.8-2.4); NT-proBNP 2308 pg/mL (<300); Potassium 4.1 mmol/L (3.5-5.1); Sodium 138 mmol/L (136-145); Total Protein 6.3 g/dL (6.4-8.2)
[2021-10-05 10:57] LABS: INR 1.4 (0.9-1.1)
== END 2021-10-05 02:37 | disposition home or self-care (01) ==
LOC: LBO 02:36
PROVIDERS: PCP Family Medicine; Visit Provider Surgery
DX: B18.2 Chronic viral hepatitis C (principal); I48.91 Unspecified atrial fibrillation; E87.6 Hypokalemia; I50.9 Heart failure, unspecified; K74.60 Unspecified cirrhosis of liver; J90 Pleural effusion, not elsewhere classified
CPT/HCPCS: 36415; 80053; 85027; 82140; 83735; 83880; 85610; 86140

== ENCOUNTER 2021-10-05 10:30 | Day surgery (SDC) | payer MEDICARE, MEDICAID, SELFPAY ==
--- NOTE | 2021-10-05 10:25 | DI.RAD_ITS ---
Exam(s) XR CHEST 2V PA LATERAL EXAM: XR CHEST 2V PA LATERAL CLINICAL HISTORY: pre thoracentesis,pleural effusion,j90. TECHNIQUE: 2D digital imaging was performed. COMPARISON: CR XR PORTABLE CHEST AP from 09/21/2021 FINDINGS: Heart size unchanged. Mediastinum not widened or shifted. Is a large right pleural effusion. This has further increased in size when compared to 2 weeks ago. No pleural effusions seen on the opposite-left side. No left-sided infiltrates. Thoracic scoliosis is convex right and part of a bidirectional thoracolumbar scoliosis. IMPRESSION: Large right pleural effusion which has further increased when compared to 09/21/2021. There is no pl eural effusion on the opposite-left side. No shift. DATA REPOSITORY: RADIATION DOSE DELIVERED:
[2021-10-05 10:40] VITALS: BP 133/81; PULSE 86; RESP 18; TEMP 36.6; O2SAT 98
[2021-10-05 10:45] VITALS: BP 133/81; PULSE 86; RESP 18; TEMP 36.6; O2SAT 98
--- NOTE | 2021-10-05 11:11 | W.PM.OP ---
Documented by User: KLEVER Bianchi 10/06/21 08:38 Date of service: 10/05/21 Operative Note Operative Note DATE OF PROCEDURE: 10/05/21 PRE-OP DIAGNOSIS: Cirrhosis/SOB POST-OP DIAGNOSIS: same PROCEDURE: Thoracentesis and Paracentesis SURGEON: Hazel Lindsey HOTEL LOBBY CONCIERGE: Manuela Kessler ANESTHESIA TYPE: Local By Surgeon Refer to Anesthesia Record PATHOLOGY: none sent Patient was transported to: same day Patient's condition: stable Procedure Description: PROCEDURE: The patient is brought to the procedure room and placed in the seated position. Ultrasound is used to localize the pocket on the right chest. The area is marked and then prepped and draped in the usual sterile fashion using a ChloraPrep scrub solution. 6 cc's of 1% Lidocaine is used to anesthetize the T10 interspace. The small chai is made with a #11 blade. The needle and catheter is then inserted over the top of the rib, aspirating as it is inserted. The needle is then removed. The catheter is then hooked up to the Vacutainer system and 3100 cc's of straw-colored fluid is evacuated. The catheter is removed; pressure is held. 3-0 prolene suture was used to reapproximate the skin. Sterile compression dressing is applied. Portable chest x-ray shows no pneumothorax. The patient was then placed in the Supine position. Placement chosen on top in the right upper quadrant. A time-out is done. Ultrasound is used to localize the pocket. The area is prepped and draped in the usual sterile fashion using a ChloraPrep scrub solution. 5 cc's of 1% Lidocaine with epinephrine is used for local anesthetization. The abdomen is punctured and the catheter is inserted,250 cc of light yellow fluid is evacuated. Attempted hand pump syringe removal of fluid without any success. The catheter is removed. 3-0 prolene suture was used to re-approximate the skin. Pressure dressing is applied. The patient tolerated the procedure well without complication. A second location was identified with ultrasound. The area is prepped and draped in the usual sterile fashion using a ChloraPrep scrub solution. 5 cc's of 1% Lidocaine with epinephrine is used for local anesthetization. The abdomen is punctured and the catheter is inserted, 1300 cc of light yellow fluid is evacuated. Attempted hand pump syringe removal of fluid without any success. The catheter is removed. 3-0 prolene suture was used to re-approximate the skin. Pressure dressing is applied. The patient tolerated the procedure well without complication. Documented by User: Hazel Lindsey DO 10/06/21 21:16
[2021-10-05] MEDS: Normal Saline Flush 10 ML SYR IV ×2 (11:20→13:39)
[2021-10-05] MEDS: Sodium Bicarbonate 50 MEQ/50 ML VIAL (13:20)
[2021-10-05 13:25] VITALS: BP 121/73; PULSE 76; RESP 16; TEMP 36.6; O2SAT 100
[2021-10-05 13:27] VITALS: BP 121/73; PULSE 76; RESP 16; TEMP 36.6; O2SAT 100
--- NOTE | 2021-10-05 13:35 | DI.RAD_ITS ---
Exam(s) XR PORTABLE CHEST AP EXAM: XR PORTABLE CHEST AP CLINICAL HISTORY: post thoracentesis/paracentesis. TECHNIQUE: 2D digital imaging was performed. COMPARISON: CR XR CHEST 2V PA LATERAL from 10/05/2021 FINDINGS: The size of the right pleural effusion has decreased. There is no pneumothorax evident on what is mo st probably a post thoracentesis image. There is still a moderate amount of pleural fluid evident on the right side. Increased markings in the medial right lung noted, possibly infiltrate. The left lung remains clear and there is no pleural fluid on the left side. Heart size is unchanged. Scoliosis again noted. IMPRESSION: No acute pulmonary findings on this single AP portable view of the chest. DATA REPOSITORY: RADIATION DOSE DELIVERED: All CT scans at this facility use at least one of these dose optimization techniques: automated exposure control; mA and/or kV adjustment per patient size (includes targeted e xams where dose is matched to clinical indication); or iterative reconstruction.
[2021-10-05] MEDS: ALBUMIN HUMAN 25 GM/100 ML BTL IV ×2 (13:39→14:06)
== END 2021-10-05 14:36 | disposition home or self-care (01) ==
LOC: SUR 10:31
PROVIDERS: PCP Family Medicine; Visit Provider Surgery
PROC: 0W993ZZ Drainage of Right Pleural Cavity, Percutaneous Approach (ICD-10-PCS; CPT 32554; principal; 2021-10-05 11:30)
DX: J90 Pleural effusion, not elsewhere classified (principal); R18.8 Other ascites
CPT/HCPCS: 32554; 49082; 36415; 80053; 85027; 96365; 71045; 71046; 82140; 83735; 83880; 85610; 86140

== ENCOUNTER 2021-10-11 03:19 | Outpatient (CLI) | payer MEDICARE, MEDICAID, SELFPAY ==
[2021-10-11 10:41] LABS: Source Nasal/Nares
[2021-10-11 13:15] LABS: COVID-19 PCR Negative (Negative)
== END 2021-10-11 03:20 | disposition home or self-care (01) ==
LOC: LBO 03:19
PROVIDERS: PCP Family Medicine; Visit Provider Surgery
DX: Z20.822 Contact with and (suspected) exposure to COVID-19 (principal)
CPT/HCPCS: 87635

== ENCOUNTER 2021-10-12 04:23 | Outpatient (CLI) | payer MEDICARE, MEDICAID, SELFPAY ==
[2021-10-12 13:19] LABS: HCT 33.6 % (36.0-46.0); HGB 10.4 g/dL (11.2-15.7); MCH 30.8 pg (27.0-33.0); MCV 99.4 fL (80-95); MPV 9.8 fL (8.0-11.0); Platelet Count 147 10^3/uL (130-400); RBC 3.38 10^6/uL (3.93-5.22); RDW 17.9 % (11.7-14.6); RDW-SD 66.2 fL; WBC 5.68 10^3/uL (4.4-10.8)
[2021-10-12 13:33] LABS: Ammonia 77 umol/L (11-32)
[2021-10-12 13:36] LABS: INR 1.3 (0.9-1.1); Prothrombin Time 13.3 sec (9.3-11.0)
[2021-10-12 13:47] LABS: ALT 35 U/L (14-59); AST 35 U/L (15-37); Albumin 3.3 g/dL (3.4-5.0); Alkaline Phosphatase 198 U/L (46-116); Anion Gap 7.4 mmol/L (3-11); BUN 21 mg/dL (7-18); Bilirubin, Total 2.8 mg/dL (0.2-1.0); C-Reactive Protein 1.49 mg/dL (0.0-0.3); CO2 25.6 mmol/L (21.0-32.0); CREATININE 1.3 mg/dL (0.55-1.02); Calcium 8.6 mg/dL (8.5-10.1); Chloride 104 mmol/L (98-107); Estimated GFR 42.68 (mL/min/1.73m2); Glucose 114 mg/dL (74-106); Magnesium 1.8 mg/dL (1.8-2.4); NT-proBNP 3185 pg/mL (<300); Potassium 3.9 mmol/L (3.5-5.1); Sodium 137 mmol/L (136-145); Total Protein 6.6 g/dL (6.4-8.2)
== END 2021-10-12 04:24 | disposition home or self-care (01) ==
LOC: LBO 04:23
PROVIDERS: PCP Family Medicine; Visit Provider Surgery
DX: I48.91 Unspecified atrial fibrillation (principal); I50.9 Heart failure, unspecified; K74.69 Other cirrhosis of liver; E87.6 Hypokalemia; R18.8 Other ascites
CPT/HCPCS: 36415; 80053; 85027; 82140; 83735; 83880; 85610; 86140

== ENCOUNTER 2021-10-12 13:19 | Day surgery (SDC) | payer MEDICARE, MEDICAID, SELFPAY ==
--- NOTE | 2021-10-11 21:21 | W.PM.DSUDISC ---
Discharge Plan Disposition Patient Disposition: HOME Condition: Good Discharge Details Reason For Visit: paracentisis Attending Provider: Hazel Lindsey Primary Care Provider: Dillon Muller Home Meds and New Rx's Prescriptions: No Action metoprolol tartrate 25 mg tablet 50 mg PO TID RF: 0 famotidine 20 mg tablet 20 mg PO DAILY PRNRF: 0 nitroglycerin [Nitrostat] 0.4 mg tablet, sublingual 0.4 mg sublingual Q5M PRNRF: 0 lactulose 20 gram/30 mL solution 30 g PO DAILY AM RF: 0 ribavirin 200 mg capsule 200 mg PO DAILY RF: 0 simethicone [Gas Relief (simethicone)] 80 mg tablet,chewable 80 mg PO Q6H PRN (Reason: Flatulence) RF: 0 polyethylene glycol 3350 [Miralax] 17 gram/dose powder 17 g PO DAILY RF: 0 ribavirin 200 mg tablet 200 mg PO QAM RF: 0 furosemide 20 mg tablet See Rx Instructions PO DAILY RF: 0 spironolactone 50 mg tablet See Rx Instructions PO DAILY RF: 0 potassium chloride 20 mEq tablet,ER particles/crystals 20 meq PO DAILY RF: 0 acetaminophen 500 mg Tablet 500 mg PO Q6H PRNRF: 0 magnesium oxide 400 mg magnesium tablet 400 mg PO DAILY RF: 0 ledipasvir-sofosbuvir [Harvoni] 90-400 mg tablet 90 - 400 tab PO DAILY RF: 0 polyethylene glycol 3350 [Miralax] 17 gram/dose Powder 17 g PO DAILY RF: 0 Discharge Instructions Additional Instructions: DSU C Post-Op Instructions For your safety, please do the following for the next twenty-four (24) hours: *Do Not operate a motor vehicle (car, truck, motorcycle, etc.) *Do Not drink alcoholic beverages or use any recreational drugs for the first 24 hours or while taking pain medications. The medications in your body may have a reaction that can be dangerous. *Do Not make any important decisions or sign any important papers. Follow up: as previously scheduled. 1. No lifting over 20 pounds or strenuous activity for the first 24 hours after your procedure. After 24 hours there are no restrictions on your activity but you may feel fatigued for a few days. 2. After you arrive home you may have a light meal and return to your normal diet as you can tolerate it without feeling sick to your stomach. 3. You may have a bloated, gaseous feeling in your belly (abdomen) after a colonoscopy. Passing gas and belching will help. Walking or lying down on your left side with your knees flexed may relieve the discomfort. Call the office at [phone] (Office) or [phone] (Hospital) right away if you notice any of the following: a.Vomiting of blood or ?coffee ground stools?. b.Rectal bleeding 1Tbsp, blood clots or continuous bleeding. c.Severe belly (abdominal) pain. d.A hard distended belly (abdomen) and an inability to pass gas. 4. Please don?t expect to have a normal BM (bowel movement) for 2-3 days after your procedure. 5. If there are questions regarding the findings of your procedure, please contact your doctor 6. If you are unable to contact your doctor with a problem, contact the hospital at [phone]. 7. Continue all your regular medications unless directed otherwise. I understand the above instructions and have no questions. Signature of Patient or Adult Escort Name of Responsible Adult Escort Signature of Nurse Date/Time Activity:: see above Diet:: high protein Discharge Orders Discharge Orders: Discharge Order (Routine); Ordered 10/11/21 Ordered By: Hazel Lindsey DS: Diagnosis Discharge Diagnosis (1) Cardiomyopathy: Status: Active (2) Pleural effusion: Status: Acute (3) CKD (chronic kidney disease) stage 4, GFR 15-29 ml/min: Status: Acute (4) Chronic hepatitis C: Status: Chronic (5) Atrial fibrillation with controlled ventricular rate: Status: Acute (6) Advanced hepatic cirrhosis: Status: Chronic (7) Nephrotic syndrome: Status: Acute
--- NOTE | 2021-10-11 21:24 | ROE_ITS ---
Documented by User: Hazel Lindsey DO 10/11/21 21:25 Date of service: 10/12/21 Operative Note Operative Note Refer to Anesthesia Record Documented by User: KLEVER Bianchi 10/12/21 16:03 Operative Note Operative Note DATE OF PROCEDURE: 10/12/21 PRE-OP DIAGNOSIS: Cirrhosis POST-OP DIAGNOSIS: same SURGEON: Hazel Lindsey RETIREMENT CONSULTANT: Manuela Kessler ANESTHESIA TYPE: Local By Surgeon PATHOLOGY: none sent COMPLICATIONS: None Patient was transported to: same day Patient's condition: stable Procedure Description: The patient is brought to the procedure room and placed in the supine position. Placement chosen on top in the left upper quadrant. A time-out is done. Ultrasound is used to localize the pocket. The area is prepped and draped in the usual sterile fashion using a ChloraPrep scrub solution. 7 cc's of 1% Lidocaine with epinephrine is used for local anesthetization. The abdomen is punctured and the catheter is inserted. 4600 liters of emil colored fluid is evacuated today. The catheter is removed. 3-0 Prolene simple suture was placed. Pressure dressing is applied. The patient tolerated the procedure well without complication.
[2021-10-12 13:35] VITALS: BP 137/102; PULSE 77; RESP 24; TEMP 36.7; O2SAT 98
[2021-10-12] MEDS: Normal Saline Flush 10 ML SYR IV ×3 (14:05→17:09)
[2021-10-12] MEDS: Sodium Bicarbonate 50 MEQ/50 ML VIAL (15:52)
[2021-10-12 15:58] VITALS: BP 126/75; PULSE 85; RESP 18; TEMP 35.9; O2SAT 96
[2021-10-12] MEDS: ALBUMIN HUMAN 25 GM/100 ML BTL IV ×2 (16:23→16:46)
== END 2021-10-12 17:14 | disposition home or self-care (01) ==
PROVIDERS: PCP Family Medicine; Visit Provider Surgery
PROC: 0W9G3ZZ Drainage of Peritoneal Cavity, Percutaneous Approach (ICD-10-PCS; CPT 49082; principal; 2021-10-12 12:00)
DX: R18.8 Other ascites (principal); J90 Pleural effusion, not elsewhere classified; K74.60 Unspecified cirrhosis of liver
CPT/HCPCS: 49082; 36415; 80053; 85027; 96365; 82140; 83735; 83880; 85610; 86140

== ENCOUNTER → 2021-10-15 13:32 | Outpatient (BNVA) | payer MEDICARE, MEDICAID, SELFPAY | PROVIDERS: PCP Family Medicine; Referring Provider Family Medicine; Visit Provider Physical Therapy Assistant | DX: K74.60 Unspecified cirrhosis of liver (principal); R18.8 Other ascites; K91.89 Other postprocedural complications and disorders of digestive system | CPT/HCPCS: 99213 ==

== ENCOUNTER 2021-10-18 01:25 | Outpatient (CLI) | payer MEDICARE, MEDICAID, SELFPAY ==
[2021-10-18 10:50] LABS: Source Nasal/Nares
[2021-10-18 14:15] LABS: COVID-19 PCR Negative (Negative)
== END 2021-10-18 01:26 | disposition home or self-care (01) ==
LOC: LBO 01:25
PROVIDERS: PCP Family Medicine; Visit Provider Surgery
DX: Z20.822 Contact with and (suspected) exposure to COVID-19 (principal); Z01.818 Encounter for other preprocedural examination
CPT/HCPCS: 87635

== ENCOUNTER 2021-10-19 02:20 | Outpatient (CLI) | payer MEDICARE, MEDICAID, SELFPAY ==
[2021-10-19 10:48] LABS: HCT 33.2 % (36.0-46.0); HGB 10.4 g/dL (11.2-15.7); MCH 31.6 pg (27.0-33.0); MCHC 31.3 % (32.0-36.0); MCV 100.9 fL (80-95); MPV 9.5 fL (8.0-11.0); Platelet Count 137 10^3/uL (130-400); RBC 3.29 10^6/uL (3.93-5.22); RDW 17.8 % (11.7-14.6); RDW-SD 67.1 fL; WBC 5.35 10^3/uL (4.4-10.8)
[2021-10-19 10:58] LABS: Ammonia 72 umol/L (11-32)
[2021-10-19 11:00] LABS: INR 1.4 (0.9-1.1)
[2021-10-19 11:08] LABS: ALT 33 U/L (14-59); AST 33 U/L (15-37); Albumin 3.3 g/dL (3.4-5.0); Alkaline Phosphatase 200 U/L (46-116); Anion Gap 6.8 mmol/L (3-11); BUN 23 mg/dL (7-18); Bilirubin, Total 2.5 mg/dL (0.2-1.0); CO2 27.2 mmol/L (21.0-32.0); CREATININE 1.5 mg/dL (0.55-1.02); Calcium 8.5 mg/dL (8.5-10.1); Chloride 101 mmol/L (98-107); Estimated GFR 36.19 (mL/min/1.73m2); Glucose 102 mg/dL (74-106); Magnesium 1.8 mg/dL (1.8-2.4); NT-proBNP 2313 pg/mL (<300); Sodium 135 mmol/L (136-145); Total Protein 6.4 g/dL (6.4-8.2)
== END 2021-10-19 02:21 | disposition home or self-care (01) ==
LOC: LBO 02:20
PROVIDERS: PCP Family Medicine; Visit Provider Surgery
DX: I48.91 Unspecified atrial fibrillation (principal); I50.9 Heart failure, unspecified; J90 Pleural effusion, not elsewhere classified; R18.8 Other ascites; B18.2 Chronic viral hepatitis C; R06.02 Shortness of breath
CPT/HCPCS: 36415; 80053; 85027; 82140; 83735; 83880; 85610; 86140

== ENCOUNTER 2021-10-19 10:55 | Day surgery (SDC) | payer MEDICARE, MEDICAID, SELFPAY ==
--- NOTE | 2021-10-19 | DI.RAD_ITS ---
Exam(s) XR PORTABLE CHEST AP EXAM: XR PORTABLE CHEST AP CLINICAL HISTORY: s/p thoro TECHNIQUE: 2D digital imaging was performed of the chest. One image was obtained. An AP view was ob tained. COMPARISON: CR XR PORTABLE CHEST AP from 10/05/2021 CR XR CHEST 2V PA LATERAL from 10/19/2021 FINDINGS: MEDIASTINUM: Normal. HEART: Normal. PULMONARY VASCULATURE: Normal. LUNGS: Clear. PLEURAL SPACE: There has been slight interval decrease in size of the right pleural effusion since th e thoracentesis today. No left pleural effusion. No pneumothorax. BONE:Within normal limits for the patient's age. Stable right convex thoracic scoliosis. OTHER FINDINGS:Normal. IMPRESSION: Slight interval decrease in size of the right pleural effusion following thoracentesis. No pneumotho rax. DATA REPOSITORY: RADIATION DOSE DELIVERED:
--- NOTE | 2021-10-19 07:30 | DI.RAD_ITS ---
Exam(s) XR CHEST 2V PA LATERAL EXAM: XR CHEST 2V PA LATERAL CLINICAL HISTORY: PRE THORACENTESIS,PLEURAL EFFUSION,J90 TECHNIQUE: 2D digital imaging was performed of the chest. Two images were obtained. PA and lateral views were obtained. COMPARISON: CR XR PORTABLE CHEST AP from 10/05/2021 CR XR CHEST 2V PA LATERAL from 10/05/2021 FINDINGS: MEDIASTINUM: Normal. HEART: Normal. PULMONARY VASCULATURE: Normal. LUNGS: Clear. PLEURAL SPACE: There has been slight interval increase in size of the right pleural effusion compared to the post thoracentesis films from 10/05/2021. There is a moderate right pleural effusion present. No left pleural effusion is present. BONE:Within normal limits for the patient's age. There is an unchanged right thoracic scoliosis. OTHER FINDINGS:Normal. IMPRESSION: Moderate size right pleural effusion. DATA REPOSITORY: RADIATION DOSE DELIVERED:
[2021-10-19 11:05] VITALS: BP 120/40; PULSE 83; RESP 22; TEMP 36.6; O2SAT 99
--- NOTE | 2021-10-19 11:39 | ROE_ITS ---
Date of service: 10/19/21 Time of Service: 12:00 Operative Note Operative Note DATE OF PROCEDURE: 10/19/21 PRE-OP DIAGNOSIS: Cirrhosis/SOB POST-OP DIAGNOSIS: same SURGEON: Hazel Lindsey GLASS BLOWING LATHE OPERATOR: Manuela Kessler ANESTHESIA TYPE: Local By Surgeon Refer to Anesthesia Record PATHOLOGY: none sent COMPLICATIONS: None Patient was transported to: same day Patient's condition: stable Procedure Description: PROCEDURE: Pt is here today for thoracentesis for symptoms of shortness of breath. Chest x-ray was reviewed prior to beginning the procedure. Informed consent was obtained explaining risks and benefits of the procedure, including but not limited to bleeding, infection, pneumothorax, recurrence, complications of anesthesia, and other unforetold complications. PROCEDURE: The patient is brought to the procedure room and placed in the seated position. Ultrasound is used to localize the pocket on the right chest. The area is marked and then prepped and draped in the usual sterile fashion using a ChloraPrep scrub solution. 10 cc's of 1% Lidocaine with epi is used to anesthetize the T10 interspace. The small chai is made with a #11 blade. The needle and catheter is then inserted over the top of the rib, aspirating as it is inserted. The needle is then removed. The catheter is then hooked up to the Vacutainer system and 2000 cc's of emil-colored fluid is evacuated. The c atheter is removed; pressure is held. 3-0 prolene suture was used to re- approximate the skin. Sterile compression dressing is applied. Portable chest x-ray shows no pneumothorax. The patient is brought to the procedure room and placed in the supine position. Placement chosen on top in the right upper quadrant. A time-out is done. Ultrasound is used to localize the pocket. The area is prepped and draped in the usual sterile fashion using a ChloraPrep scrub solution. 10 cc's of 1% Lidocaine with epinephrine is used for local anesthetization. The abdomen is punctured and the catheter is inserted. 2850 cc of light yellow fluid is evacuated today. The catheter is removed. 3-0 prolene suture was used to re- approximate the skin. Pressure dressing is applied. The patient tolerated the procedure well without complication. Pt is given instructions in wound care, activity, medications, and warning signs: SOB, increasing in pain, chest pain, redness or temperature- if these occur, come to ED.
[2021-10-19] MEDS: Normal Saline Flush 10 ML SYR IV (11:50)
[2021-10-19] MEDS: Sodium Bicarbonate 50 MEQ/50 ML VIAL (12:48)
--- NOTE | 2021-10-19 13:04 | W.PM.DSUDISC ---
Discharge Plan Discharge Details Attending Provider: Hazel Lindsey Primary Care Provider: Dillon Muller Home Meds and New Rx's Prescriptions: No Action metoprolol tartrate 25 mg tablet 50 mg PO TID RF: 0 famotidine 20 mg tablet 20 mg PO DAILY PRNRF: 0 nitroglycerin [Nitrostat] 0.4 mg tablet, sublingual 0.4 mg sublingual Q5M PRNRF: 0 lactulose 20 gram/30 mL solution 30 g PO DAILY AM RF: 0 ribavirin 200 mg capsule 200 mg PO DAILY RF: 0 simethicone [Gas Relief (simethicone)] 80 mg tablet,chewable 80 mg PO Q6H PRN (Reason: Flatulence) RF: 0 polyethylene glycol 3350 [Miralax] 17 gram/dose powder 17 g PO DAILY RF: 0 ribavirin 200 mg tablet 200 mg PO QAM RF: 0 furosemide 20 mg tablet See Rx Instructions PO DAILY RF: 0 spironolactone 50 mg tablet See Rx Instructions PO DAILY RF: 0 potassium chloride 20 mEq tablet,ER particles/crystals 20 meq PO DAILY RF: 0 acetaminophen 500 mg Tablet 500 mg PO Q6H PRNRF: 0 magnesium oxide 400 mg magnesium tablet 400 mg PO DAILY RF: 0 ledipasvir-sofosbuvir [Harvoni] 90-400 mg tablet 90 - 400 tab PO DAILY RF: 0 polyethylene glycol 3350 [Miralax] 17 gram/dose Powder 17 g PO DAILY RF: 0 Discharge Instructions Additional Instructions: repeat procedure 11/02. f/u in clinic 10/28- call for appt Activity:: Activity as Tolerated Remove Dressings/Wound Care:: 24 hours Shower/Bathe:: 24 hours Activity:: Activity as Tolerated Diet:: high protein DS: Diagnosis Discharge Diagnosis (1) Cardiomyopathy: Status: Active (2) Congestive heart failure: Status: Acute (3) Pleural effusion: Status: Acute (4) Chronic hepatitis C: Status: Chronic (5) CKD (chronic kidney disease) stage 4, GFR 15-29 ml/min: Status: Acute (6) Atrial fibrillation with controlled ventricular rate: Status: Acute (7) Advanced hepatic cirrhosis: Status: Chronic (8) Nephrotic syndrome: Status: Acute (9) Abdominal ascites: Status: Acute (10) Encephalopathy chronic: Status: Acute (11) 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
[2021-10-19 13:15] VITALS: BP 111/69; PULSE 70; RESP 18; TEMP 36.6; O2SAT 97
== END 2021-10-19 14:22 | disposition home or self-care (01) ==
PROVIDERS: PCP Family Medicine; Visit Provider Surgery
PROC: (CPT 32554; principal; 2021-10-19 11:15)
DX: J90 Pleural effusion, not elsewhere classified (principal); R18.8 Other ascites; B18.2 Chronic viral hepatitis C; K74.60 Unspecified cirrhosis of liver
CPT/HCPCS: 32554; 49082; 36415; 80053; 85027; 71045; 71046; 82140; 83735; 83880; 85610; 86140

== ENCOUNTER → 2021-10-28 08:00 | Outpatient (BNVA) | payer MEDICARE, MEDICAID, SELFPAY | PROVIDERS: PCP Family Medicine; Referring Provider Family Medicine; Visit Provider Physical Therapy Assistant | DX: Z48.02 Encounter for removal of sutures (principal) | CPT/HCPCS: NC ==

== ENCOUNTER 2021-11-01 01:12 | Outpatient (CLI) | payer MEDICARE, MEDICAID, SELFPAY ==
[2021-11-01 15:05] LABS: COVID-19 PCR Negative (Negative)
[2021-11-01 17:19] LABS: Source Nasal/Nares
== END 2021-11-01 01:13 | disposition home or self-care (01) ==
LOC: LBO 01:13
PROVIDERS: PCP Family Medicine; Visit Provider Surgery
DX: Z20.822 Contact with and (suspected) exposure to COVID-19 (principal); Z01.818 Encounter for other preprocedural examination
CPT/HCPCS: 87635

== ENCOUNTER 2021-11-02 02:18 | Outpatient (CLI) | payer MEDICARE, MEDICAID, SELFPAY ==
[2021-11-02 09:26] LABS: HCT 36.4 % (36.0-46.0); HGB 11.4 g/dL (11.2-15.7); MCHC 31.3 % (32.0-36.0); MCV 102.2 fL (80-95); MPV 9.5 fL (8.0-11.0); Platelet Count 149 10^3/uL (130-400); RBC 3.56 10^6/uL (3.93-5.22); RDW 16.9 % (11.7-14.6); RDW-SD 64.7 fL; WBC 5.32 10^3/uL (4.4-10.8)
[2021-11-02 09:40] LABS: INR 1.3 (0.9-1.1); Prothrombin Time 13.3 sec (9.3-11.0)
[2021-11-02 09:41] LABS: Ammonia 118 umol/L (11-32)
[2021-11-02 09:43] LABS: ALT 34 U/L (14-59); AST 35 U/L (15-37); Albumin 3.3 g/dL (3.4-5.0); Alkaline Phosphatase 214 U/L (46-116); Anion Gap 9.1 mmol/L (3-11); BUN 24 mg/dL (7-18); Bilirubin, Total 3.2 mg/dL (0.2-1.0); C-Reactive Protein 1.22 mg/dL (0.0-0.3); CO2 22.9 mmol/L (21.0-32.0); CREATININE 1.5 mg/dL (0.55-1.02); Calcium 8.5 mg/dL (8.5-10.1); Chloride 102 mmol/L (98-107); Estimated GFR 36.19 (mL/min/1.73m2); Glucose 119 mg/dL (74-106); Magnesium 1.9 mg/dL (1.8-2.4); NT-proBNP 3910 pg/mL (<300); Potassium 3.7 mmol/L (3.5-5.1); Sodium 134 mmol/L (136-145)
== END 2021-11-02 02:19 | disposition home or self-care (01) ==
LOC: LBO 02:18
PROVIDERS: PCP Family Medicine; Visit Provider Surgery
DX: I48.91 Unspecified atrial fibrillation (principal); R18.8 Other ascites; I50.9 Heart failure, unspecified; R06.02 Shortness of breath; B18.2 Chronic viral hepatitis C
CPT/HCPCS: 36415; 80053; 85027; 82140; 83735; 83880; 85610; 86140

== ENCOUNTER 2021-11-02 09:24 | Day surgery (SDC) | payer MEDICARE, MEDICAID, SELFPAY ==
--- NOTE | 2021-11-01 19:56 | W.PM.DSUDISC ---
Discharge Plan Disposition Patient Disposition: HOME Condition: Fair Discharge Details Reason For Visit: para/thorocentisi/fluid removAL Attending Provider: Hazel Lindsey Primary Care Provider: Dillon Muller Home Meds and New Rx's Prescriptions: No Action metoprolol tartrate 25 mg tablet 50 mg PO TID 0RF Label Comments: Patient reports increase from 25mg. 11/03/19, A.Day,RN famotidine 20 mg tablet 20 mg PO DAILY PRN0RF Label Comments: Not taking-08/22/21 nitroglycerin [Nitrostat] 0.4 mg tablet, sublingual 0.4 mg sublingual Q5M PRN0RF Rx Instructions: do not exceed 3 doses per episode lactulose 20 gram/30 mL solution 30 g PO DAILY AM 0RF Rx Instructions: to achieve 3-4 stools/day 07/28/21 [facility] simethicone [Gas Relief (simethicone)] 80 mg tablet,chewable 80 mg PO Q6H PRN (Reason: Flatulence) 0RF Rx Instructions: [facility] [place] ribavirin 200 mg tablet 200 mg PO QAM 0RF Rx Instructions: for total of 24 weeks, ends 11/21/21 note [facility] [place] [facility] [place] 20 mg tablet See Rx Instructions PO DAILY 0RF Rx Instructions: 40 mg alternating with 80 mg daily PO daily; 10/12/21 [facility] spironolactone 50 mg tablet See Rx Instructions PO DAILY 0RF Rx Instructions: 100 mg alternating with 200 mg PO daily; [facility] [place] dated 10[place]12/21 [facility] [place] chloride 20 mEq tablet,ER particles/crystals 20 meq PO DAILY 0RF Label Comments: TAKE 1 TABLET BY MOUTH DAILY acetaminophen 500 mg Tablet 500 mg PO Q6H PRN0RF magnesium oxide 400 mg magnesium tablet 400 mg PO DAILY 0RF ledipasvir-sofosbuvir [Harvoni] 90-400 mg tablet 90 - 400 tab PO DAILY 0RF polyethylene glycol 3350 [Miralax] 17 gram/dose Powder 17 g PO DAILY 0RF Discharge Instructions Additional Instructions: -extra dose of lactulose tonight -F/u 11/16 for repeat procedure. -low protein diet for next 24 hrs . Than can resume high protein diet. Activity:: Activity as Tolerated Remove Dressings/Wound Care:: 24 hours Shower/Bathe:: 24 hours Diet:: high protein Discharge Orders Discharge Orders: Discharge Order (Routine); Ordered 11/01/21 Ordered By: Hazel Lindsey
--- NOTE | 2021-11-02 07:00 | DI.RAD_ITS ---
Exam(s) XR CHEST 2V PA LATERAL EXAM: XR CHEST 2V PA LATERAL CLINICAL HISTORY: PRE THORACENTESIS, PLEURAL EFFUSION,J90. TECHNIQUE: 2D digital imaging was performed. COMPARISON: CR XR CHEST 2V PA LATERAL from 10/05/2021 CR XR PORTABLE CHEST AP from 10/19/2021 FINDINGS: Heart size is normal. The mediastinum is not widened. Moderate size right pleural effusion is again noted and essentially unchanged size from most recent c hest x-ray which is 10/19/2021. Increased markings in the lung adjacent the pleural effusion are als o unchanged. No findings in the opposite-left lung and there is no left pleural effusion. Scoliosis convex right in thoracic spine again noted. IMPRESSION: As above. No radiographic change compared to 10/19/2021. DATA REPOSITORY: RADIATION DOSE DELIVERED:
[2021-11-02 09:50] VITALS: BP 124/78; PULSE 75; RESP 20; TEMP 36.4; O2SAT 100
[2021-11-02] MEDS: Sodium Bicarbonate 50 MEQ/50 ML VIAL (10:49)
[2021-11-02 11:56] VITALS: BP 112/76; PULSE 74; RESP 16; TEMP 36.3; O2SAT 100
--- NOTE | 2021-11-02 12:08 | DI.RAD_ITS ---
Exam(s) XR PORTABLE CHEST AP EXAM: XR PORTABLE CHEST AP CLINICAL HISTORY: s/p thoro. TECHNIQUE: 2D digital imaging was performed. COMPARISON: CR XR CHEST 2V PA LATERAL from 11/02/2021 FINDINGS: Portable upright view of the chest dated 11/02/2021 at 12:08 p.m., compared to earlier same date. Ap parently this is a post thoracentesis image. Moderate size right pleural effusion is again noted. This has minimally decreased in size. There is no pneumothorax. No new left hemithoracic findings. IMPRESSION: Post thoracentesis image reveals no evidence of pneumothorax. DATA REPOSITORY: RADIATION DOSE DELIVERED: All CT scans at this facility use at least one of these dose optimization techniques: automated exposure control; mA and/or kV adjustment per patient size (includes targeted e xams where dose is matched to clinical indication); or iterative reconstruction.
[2021-11-02] MEDS: ALBUMIN HUMAN 25 GM/100 ML BTL IV ×2 (12:16→12:47)
--- NOTE | 2021-11-02 14:46 | ROE_ITS ---
Date of service: 11/02/21 Time of Service: 10:45 Operative Note Operative Note DATE OF PROCEDURE: 11/02/21 PRE-OP DIAGNOSIS: SOB/ Cirrhosis POST-OP DIAGNOSIS: same SURGEON: Hazel Lindsey GRID CASTING MACHINE OPERATOR HELPER: Manuela Kessler ANESTHESIA TYPE: Local By Surgeon Refer to Anesthesia Record PATHOLOGY: none sent COMPLICATIONS: None Patient was transported to: same day Patient's condition: stable Procedure Description: Pt is here today for thoracentesis for symptoms of shortness of breath.? Chest x-ray was reviewed prior to beginning the procedure.? Informed consent was obtained explaining risks and benefits of the procedure, including but not limited to bleeding, infection, pneumothorax, recurrence, complications of anesthesia, and other unforetold complications. ? PROCEDURE:? The patient is brought to the procedure room and placed in the seated position.? Ultrasound is used to localize the pocket on the right chest.? The area is marked and then prepped and draped in the usual sterile fashion usin g a ChloraPrep scrub solution. 10 cc's? of 1% Lidocaine with epi is used to anesthetize the T10 interspace. ? The small chai is made with a #11 blade.? The needle and catheter is then inserted over the top of the rib, aspirating as it is inserted.? The needle is then removed.? The catheter is then hooked up to the Vacutainer system and 1500 cc's of emil-colored fluid is evacuated.? The catheter is removed; pressure is held. 3-0 prolene suture was used to re- approximate the skin. Sterile compression dressing is applied. ?Portable chest x-ray shows no pneumothorax. The patient is brought to the procedure room and placed in the supine position.? Placement chosen on top in the right upper quadrant.? A time-out is done.? Ultrasound is used to localize the pocket.? The area is prepped and draped in the usual sterile fashion using a ChloraPrep scrub solution.? 10 cc's of 1% Lidocaine with epinephrine is used for local anesthetization.? The abdomen is punctured and the catheter is inserted. ? 3800 cc of light yellow fluid is evacuated today.? The catheter is removed. 3-0 prolene suture was used to re- approximate the skin. Pressure dressing is applied. ? The patient tolerated the procedure well without complication. Pt is given instructions in wound care, activity, medications, and warning signs: SOB, increasing in pain, chest pain, redness or temperature- if these occur, come to ED.
== END 2021-11-02 13:18 | disposition home or self-care (01) ==
LOC: SUR 09:25
PROVIDERS: PCP Family Medicine; Visit Provider Surgery
PROC: 0W9G3ZZ Drainage of Peritoneal Cavity, Percutaneous Approach (ICD-10-PCS; CPT 49082; principal; 2021-11-02 09:45)
PROC: (CPT 32554; 2021-11-02 09:45)
DX: J90 Pleural effusion, not elsewhere classified (principal); R18.8 Other ascites
CPT/HCPCS: 32554; 49082; 36415; 80053; 85027; 96365; 71045; 71046; 82140; 83735; 83880; 85610; 86140

== ENCOUNTER 2021-11-15 02:06 | Outpatient (CLI) | payer MEDICARE, MEDICAID, SELFPAY ==
[2021-11-15 10:36] LABS: Source Nasal/Nares
[2021-11-15 14:08] LABS: COVID-19 PCR Negative (Negative)
== END 2021-11-15 02:07 | disposition home or self-care (01) ==
LOC: LBO 02:06
PROVIDERS: PCP Family Medicine; Visit Provider Surgery
DX: Z20.822 Contact with and (suspected) exposure to COVID-19 (principal); Z01.818 Encounter for other preprocedural examination
CPT/HCPCS: 87635; U0005

== ENCOUNTER 2021-11-16 03:26 | Outpatient (CLI) | payer MEDICARE, MEDICAID, SELFPAY ==
[2021-11-16 10:24] LABS: Abs Immature Grans 0.02 10^3/uL (0.0-0.06); Absolute Basophil Count 0.05 10^3/uL (0.0-0.2); Absolute Eosinophil Count 0.23 10^3/uL (0.0-0.7); Absolute Lymphocyte Count 0.96 10^3/uL (1.2-3.4); Absolute Neutrophil Count 2.92 10^3/uL (1.2-6.7); Basophils % 1.1; Eosinophils % 4.9; HCT 33.5 % (36.0-46.0); HGB 10.4 g/dL (11.2-15.7); Immature Grans % 0.4; Lymphocytes % 20.5; MCH 32.1 pg (27.0-33.0); MCV 103.4 fL (80-95); MPV 9.8 fL (8.0-11.0); Monocytes % 10.7; Neutrophils % 62.4; Nucleated RBC 0 %; Platelet Count 138 10^3/uL (130-400); RBC 3.24 10^6/uL (3.93-5.22); RDW 16.7 % (11.7-14.6); RDW-SD 64.2 fL; WBC 4.68 10^3/uL (4.4-10.8)
[2021-11-16 10:34] LABS: Ammonia 85 umol/L (11-32)
[2021-11-16 10:46] LABS: INR 1.4 (0.9-1.1); Prothrombin Time 13.6 sec (9.3-11.0)
[2021-11-16 11:08] LABS: ALT 28 U/L (14-59); AST 33 U/L (15-37); Albumin 3.1 g/dL (3.4-5.0); Alkaline Phosphatase 190 U/L (46-116); Anion Gap 5.9 mmol/L (3-11); BUN 21 mg/dL (7-18); C-Reactive Protein 0.97 mg/dL (0.0-0.3); CO2 26.1 mmol/L (21.0-32.0); CREATININE 1.4 mg/dL (0.55-1.02); Calcium 8.5 mg/dL (8.5-10.1); Chloride 103 mmol/L (98-107); Estimated GFR 39.19 (mL/min/1.73m2); Glucose 130 mg/dL (74-106); NT-proBNP 3656 pg/mL (<300); Potassium 3.9 mmol/L (3.5-5.1); Sodium 135 mmol/L (136-145); Total Protein 6.5 g/dL (6.4-8.2)
== END 2021-11-16 03:27 | disposition home or self-care (01) ==
LOC: LBO 03:26
PROVIDERS: PCP Family Medicine; Visit Provider Surgery
DX: I50.9 Heart failure, unspecified (principal); Z01.812 Encounter for preprocedural laboratory examination
CPT/HCPCS: 36415; 80053; 82140; 83880; 85025; 85610; 86140

== ENCOUNTER 2021-11-16 10:20 | Day surgery (SDC) | payer MEDICARE, MEDICAID, SELFPAY ==
--- NOTE | 2021-11-15 21:41 | W.PM.OP ---
Date of service: 11/16/21 Operative Note Operative Note DATE OF PROCEDURE: 11/16/21 PRE-OP DIAGNOSIS: cirrhosis secondary to Hep C & ETOH PROCEDURE: thorocentisis & Paracentisis SURGEON: Hazel Lindsey ANESTHESIA TYPE: Local By Surgeon Refer to Anesthesia Record Procedure Description: REPORT OF OPERATION Operative Note Operative Note Pt is here today for thoracentesis for symptoms of shortness of breath.? Chest x-ray was reviewed prior to beginning the procedure.? Informed consent was obtained explaining risks and benefits of the procedure, including but not limited to bleeding, infection, pneumothorax, recurrence, complications of anesthesia, and other unforetold complications. ? PROCEDURE:? The patient is brought to the procedure room and placed in the seated position.? Ultrasound is used to localize the pocket on the right chest.? The area is marked and then prepped and draped in the usual sterile fashion using a ChloraPrep scrub solution.? 10 cc's of 1% Lidocaine is used to anesthetize the T10 interspace. ? The small chai is made with a #11 blade.? The needle and catheter is then inserted over the top of the rib, aspirating as it is inserted.? The needle is then removed.? The catheter is then hooked up to the Vacutainer system and 1400cc's of straw-colored fluid is evacuated.? The catheter is removed; pressure is held.? Sterile compression dressing is applied. ? Portable chest x-ray shows no pneumothorax.? ? The patient is brought to the procedure room and placed in the supine position.? Placement chosen on top in the right upper quadrant.? A time-out is done.? Ultrasound is used to localize the pocket.? The area is prepped and draped in the usual sterile fashion using a ChloraPrep scrub solution.? 20 cc's of 1% Lidocaine with epinephrine is used for local anesthetization.? The abdomen is punctured and the catheter is inserted.? 5 liters of light yellow fluid is evacuated today.? The catheter is removed.? Pressure dressing is applied.? The patient tolerated the procedure well without complication. Pt is given instructions in wound care, activity, medications, and warning signs: SOB, increasing in pain, chest pain, redness or temperature- if these occur, come to ED.
--- NOTE | 2021-11-16 | DI.RAD_ITS ---
Exam(s) XR PORTABLE CHEST AP EXAM: XR PORTABLE CHEST AP CLINICAL HISTORY: post Thoro TECHNIQUE: 2D digital imaging was performed of the chest. One image was obtained. An AP view was ob tained. COMPARISON: CR XR PORTABLE CHEST AP from 11/02/2021 CR XR CHEST 2V PA LATERAL from 11/16/2021 FINDINGS: MEDIASTINUM: Normal. HEART: Normal. PULMONARY VASCULATURE: Normal. LUNGS: Clear. PLEURAL SPACE: There has been interval decrease in size of the right pleural effusion but a small rig ht pleural effusion persists. There is small right apical pneumothorax. No left pleural effusion or left pneumothorax. BONE:Within normal limits for the patient's age. Persistent right thoracic scoliosis. OTHER FINDINGS:Normal. IMPRESSION: Small residual right pleural effusion and tiny right apical pneumothorax. DATA REPOSITORY: RADIATION DOSE DELIVERED:
--- NOTE | 2021-11-16 06:45 | DI.RAD_ITS ---
Exam(s) XR CHEST 2V PA LATERAL EXAM: XR CHEST 2V PA LATERAL CLINICAL HISTORY: pre thoracentesis.pleural effusion,j90 TECHNIQUE: 2D digital imaging was performed of the chest. Three images were obtained. PA and later al views were obtained. COMPARISON: CR XR CHEST 2V PA LATERAL from 11/02/2021 CR XR PORTABLE CHEST AP from 11/02/2021 FINDINGS: MEDIASTINUM: Normal. HEART: Normal. PULMONARY VASCULATURE: Normal. LUNGS: Clear. PLEURAL SPACE: There has been a reaccumulation of fluid in the right lung which is small to moderate in size. No left pleural effusion is seen. There is no pneumothorax. BONE:Within normal limits for the patient's age. OTHER FINDINGS:Normal. IMPRESSION: Small to moderate size right pleural effusion. DATA REPOSITORY: RADIATION DOSE DELIVERED:
[2021-11-16 10:42] VITALS: BP 125/84; PULSE 82; RESP 18; TEMP 36.1; O2SAT 96
[2021-11-16] MEDS: Sodium Bicarbonate 50 MEQ/50 ML VIAL (13:02)
--- NOTE | 2021-11-16 13:10 | PDOC.DSDIS_ITS ---
Discharge Plan Disposition Patient Disposition: HOME Condition: Stable Discharge Details Reason For Visit: fluid removal Attending Provider: Hazel Lindsey Primary Care Provider: Dillon Muller Home Meds and New Rx's Prescriptions: No Action metoprolol tartrate 25 mg tablet 50 mg PO TID 0RF Label Comments: Patient reports increase from 25mg. 11/03/19, A.Day,RN famotidine 20 mg tablet 20 mg PO DAILY PRN0RF Label Comments: Not taking-08/22/21 nitroglycerin [Nitrostat] 0.4 mg tablet, sublingual 0.4 mg sublingual Q5M PRN0RF Rx Instructions: do not exceed 3 doses per episode lactulose 20 gram/30 mL solution 30 g PO DAILY AM 0RF Rx Instructions: to achieve 3-4 stools[place]28[place] [facility] [place] [Gas Relief (simethicone)] 80 mg tablet,chewable 80 mg PO Q6H PRN (Reason: Flatulence) 0RF Rx Instructions: [facility] [place] [facility] ribavirin 200 mg tablet 200 mg PO QAM 0RF Rx Instructions: for total of 24 weeks, ends 11/21/21 note [facility] [place] [facility] [place] 20 mg tablet 80 mg PO DAILY 0RF spironolactone 50 mg tablet See Rx Instructions PO DAILY 0RF Rx Instructions: 100 mg alternating with 200 mg PO daily; [facility] [place] dated 10[place]12/21 [facility] [place] chloride 20 mEq tablet,ER particles/crystals 20 meq PO DAILY 0RF Label Comments: TAKE 1 TABLET BY MOUTH DAILY acetaminophen 500 mg Tablet 500 mg PO Q6H PRN0RF Xifaxan 550 mg tablet 550 mg PO BID 0RF Label Comments: TAKE ONE TABLET BY MOUTH TWICE A DAY magnesium oxide 400 mg magnesium tablet 400 mg PO DAILY 0RF ledipasvir-sofosbuvir [Harvoni] 90-400 mg tablet 90 - 400 tab PO DAILY 0RF polyethylene glycol 3350 [Miralax] 17 gram/dose Powder 17 g PO DAILY 0RF Discharge Instructions Additional Instructions: -F/u on 11/30 for repeat procedure Activity:: Activity as Tolerated Remove Dressings/Wound Care:: 24 hours Shower/Bathe:: 24 hours Diet:: high protein Discharge Orders Discharge Orders: Discharge Order (Routine); Ordered 11/15/21 Ordered By: Hazel Lindsey
[2021-11-16 13:55] VITALS: BP 109/75; PULSE 52; RESP 16; TEMP 36.4; O2SAT 99
== END 2021-11-16 14:20 | disposition home or self-care (01) ==
PROVIDERS: PCP Family Medicine; Visit Provider Surgery
PROC: (CPT 32554; principal; 2021-11-16 10:30)
DX: K70.31 Alcoholic cirrhosis of liver with ascites (principal); J91.8 Pleural effusion in other conditions classified elsewhere
CPT/HCPCS: 32554; 49082; 36415; 80053; 71045; 71046; 82140; 83880; 85025; 85610; 86140

== ENCOUNTER 2021-11-29 08:37 | Outpatient (CLI) | payer MEDICARE, MEDICAID, SELFPAY ==
[2021-11-29 12:28] LABS: Source Nasal/Nares
[2021-11-29 18:06] LABS: COVID-19 PCR Negative (Negative)
== END 2021-11-29 08:38 | disposition home or self-care (01) ==
LOC: LBO 08:39
PROVIDERS: PCP Family Medicine; Visit Provider Surgery
DX: Z20.822 Contact with and (suspected) exposure to COVID-19 (principal); Z01.818 Encounter for other preprocedural examination
CPT/HCPCS: 87635

== ENCOUNTER 2021-11-30 08:16 | Day surgery (SDC) | payer MEDICARE, MEDICAID, SELFPAY ==
--- NOTE | 2021-11-29 19:51 | W.PM.DSUDISC ---
Discharge Plan Disposition Patient Disposition: HOME Condition: Stable Discharge Details Reason For Visit: thoro/paraentisis Attending Provider: Hazel Lindsey Primary Care Provider: Dillon Muller Home Meds and New Rx's Prescriptions: No Action metoprolol tartrate 25 mg tablet 50 mg PO TID 0RF Label Comments: Patient reports increase from 25mg. 11/03/19, A.Day,RN famotidine 20 mg tablet 20 mg PO DAILY PRN0RF Label Comments: Not taking-08/22/21 nitroglycerin [Nitrostat] 0.4 mg tablet, sublingual 0.4 mg sublingual Q5M PRN0RF Rx Instructions: do not exceed 3 doses per episode lactulose 20 gram/30 mL solution 30 g PO DAILY AM 0RF Rx Instructions: to achieve 3-4 stools/day 07/28/21 cgc simethicone [Gas Relief (simethicone)] 80 mg tablet,chewable 80 mg PO Q6H PRN (Reason: Flatulence) 0RF Rx Instructions: [facility] [place] 200 mg tablet 200 mg PO QAM 0RF Label Comments: Pt reports she stopped taking 7 days ago Rx Instructions: for total of 24 weeks, ends 11/21/21 [place] [facility] [place] [facility] [place] [place] furosemide 20 mg tablet 80 mg PO DAILY 0RF spironolactone 50 mg tablet See Rx Instructions PO DAILY 0RF Rx Instructions: 100 mg alternating with 200 mg PO daily; [facility] [place] [facility] [place] [place] potassium chloride 20 mEq tablet,ER particles/crystals 20 meq PO DAILY 0RF Label Comments: TAKE 1 TABLET BY MOUTH DAILY acetaminophen 500 mg Tablet 500 mg PO Q6H PRN0RF Xifaxan 550 mg tablet 550 mg PO BID 0RF Label Comments: TAKE ONE TABLET BY MOUTH TWICE A DAY magnesium oxide 400 mg magnesium tablet 400 mg PO DAILY 0RF ledipasvir-sofosbuvir [Harvoni] 90-400 mg tablet 90 - 400 tab PO DAILY 0RF polyethylene glycol 3350 [Miralax] 17 gram/dose Powder 17 g PO DAILY 0RF Discharge Instructions Additional Instructions: continue cares Cr 1.9 ammonia 68 BNP 3221 Activity:: see above Remove Dressings/Wound Care:: 24 hours Shower/Bathe:: 24 hours Diet:: high protein Discharge Orders Discharge Orders: Discharge Order (Routine); Ordered 11/29/21 Ordered By: Hazel Lindsey
--- NOTE | 2021-11-30 | DI.RAD_ITS ---
Exam(s) XR PORTABLE CHEST AP EXAM: XR PORTABLE CHEST AP CLINICAL HISTORY: s/p thoro TECHNIQUE: 2D digital imaging was performed. COMPARISON: CR XR CHEST 2V PA LATERAL from 11/30/2021 FINDINGS: LUNGS: No change in size of small right pleural effusion. Right upper lobe and left lung are clear. No pneumothorax. HEART: Normal. MEDIASTINUM: Normal. BONES: Scoliosis. IMPRESSION: Stable size right pleural effusion. No pneumothorax. DATA REPOSITORY: RADIATION DOSE DELIVERED:
--- NOTE | 2021-11-30 06:30 | DI.RAD_ITS ---
Exam(s) XR CHEST 2V PA LATERAL EXAM: XR CHEST 2V PA LATERAL CLINICAL HISTORY: pre thoracentesis, pleural effusion, j90 TECHNIQUE: 2D digital imaging was performed. COMPARISON: CR XR PORTABLE CHEST AP from 11/16/2021 FINDINGS: There has been no change in size of the previously noted small right pleural effusion. No pneumothor ax is present. The left lung remains clear. The heart size is normal. Scoliosis is again noted. IMPRESSION: Stable size small right pleural effusion. DATA REPOSITORY: RADIATION DOSE DELIVERED:
--- NOTE | 2021-11-30 08:31 | W.PM.OP ---
Documented by User: Hazel Lindsey DO 11/30/21 11:59 Date of service: 11/30/21 Operative Note Operative Note DATE OF PROCEDURE: 11/30/21 PRE-OP DIAGNOSIS: cirrhosis POST-OP DIAGNOSIS: same SURGEON: Hazel Lindsey [employer] OPERATOR: Manuela Kessler Refer to Anesthesia Record PATHOLOGY: none sent COMPLICATIONS: None Patient was transported to: same day Patient's condition: stable Procedure Description: REPORT OF OPERATION Operative Note Operative Note Pt is here today for thoracentesis for symptoms of shortness of breath.? Chest x-ray was reviewed prior to beginning the procedure.? Informed consent was obtained explaining risks and benefits of the procedure, including but not limited to bleeding, infection, pneumothorax, recurrence, complications of anesthesia, and other unforetold complications. ? PROCEDURE:? The patient is brought to the procedure room and placed in the seated position.? Ultrasound is used to localize the pocket on the [] chest.? The area is marked and then prepped and draped in the usual sterile fashion using a ChloraPrep scrub solution.? 10 cc's of 1% Lidocaine is used to anesthetize the T10 interspace. ? The small chai is made with a #11 blade.? The needle and catheter is then inserted over the top of the rib, aspirating as it is inserted.? The needle is then removed.? The catheter is then hooked up to the Vacutainer system and [] cc's of straw-colored fluid is evacuated.? The catheter is removed; pressure is held.? Sterile compression dressing is applied. The patient is brought to the procedure room and placed in the supine position.? Placement chosen on top in the right upper quadrant.? A time-out is done.? Ultrasound is used to localize the pocket.? The area is prepped and draped in the usual sterile fashion using a ChloraPrep scrub solution.? 20 cc's of 1% Lidocaine with epinephrine is used for local anesthetization.? The abdomen is punctured and the catheter is inserted.? 3 liters of light yellow fluid is evacuated today.? The catheter is removed.? Pressure dressing is applied.? The patient tolerated the procedure well without complication. ? Portable chest x-ray shows no pneumothorax.? ? Pt is given instructions in wound care, activity, medications, and warning signs: SOB, increasing in pain, chest pain, redness or temperature- if these occur, come to ED. Documented by User: KLEVER Bianchi 11/30/21 11:58 Operative Note Operative Note Procedure Description: REPORT OF OPERATION Operative Note Operative Note Pt is here today for thoracentesis for symptoms of shortness of breath.? Chest x-ray was reviewed prior to beginning the procedure.? Informed consent was obtained explaining risks and benefits of the procedure, including but not limited to bleeding, infection, pneumothorax, recurrence, complications of anesthesia, and other unforetold complications. ? PROCEDURE:? The patient is brought to the procedure room and placed in the seated position.? Ultrasound is used to localize the pocket on the right side of the chest.? The area is marked and then prepped and draped in the usual sterile fashion using a ChloraPrep scrub solution.? 10 cc's of 1% Lidocaine is used to anesthetize the T10 interspace. ? The small chai is made with a #11 blade.? The needle and catheter is then inserted over the top of the rib, aspirating as it is inserted.? The needle is then removed.? The catheter is then hooked up to the Vacutainer system and 5600 cc's of straw-colored fluid is evacuated.? The catheter is removed; pressure is held.?3-0 prolene simple suture was placed. Sterile compression dressing is applied. The patient is brought to the procedure room and placed in the supine position.? Placement chosen on top in the right upper quadrant.? A time-out is done.? Ultrasound is used to localize the pocket.? The area is prepped and draped in the usual sterile fashion using a ChloraPrep scrub solution.? 20 cc's of 1% Lidocaine with epinephrine is used for local anesthetization.? The abdomen is punctured and the catheter is inserted.? 2350 liters of light yellow fluid is evacuated today.? The catheter is removed.?3-0 prolene simple suture was used to approximate the skin. Pressure dressing is applied.? The patient tolerated the procedure well without complication. ? Portable chest x-ray shows no pneumothorax.? ? Pt is given instructions in wound care, activity, medications, and warning signs: SOB, increasing in pain, chest pain, redness or temperature- if these occur, come to ED.
[2021-11-30 08:33] VITALS: BP 126/73; PULSE 79; TEMP 36.3; O2SAT 100
[2021-11-30] MEDS: Normal Saline Flush 10 ML SYR IV ×2 (08:48→10:34)
[2021-11-30] MEDS: Sodium Bicarbonate 50 MEQ/50 ML VIAL (09:39)
[2021-11-30 10:10] VITALS: BP 134/98; PULSE 91; RESP 16; TEMP 36; O2SAT 100
[2021-11-30] MEDS: ALBUMIN HUMAN 25 GM/100 ML BTL IV ×2 (10:35→11:10)
== END 2021-11-30 11:52 | disposition home or self-care (01) ==
LOC: SUR 08:17
PROVIDERS: PCP Family Medicine; Visit Provider Surgery
PROC: (CPT 32554; principal; 2021-11-30 08:15)
DX: J90 Pleural effusion, not elsewhere classified (principal); R18.8 Other ascites
CPT/HCPCS: 32554; 49082; 36415; 80053; 85027; 96365; 71045; 71046; 82140; 83735; 83880; 85610; 86140

== ENCOUNTER 2021-12-14 02:53 | Outpatient (CLI) | payer MEDICARE, MEDICAID, SELFPAY ==
[2021-12-14 09:53] LABS: Abs Immature Grans 0.03 10^3/uL (0.0-0.06); Absolute Basophil Count 0.09 10^3/uL (0.0-0.2); Absolute Eosinophil Count 0.15 10^3/uL (0.0-0.7); Absolute Lymphocyte Count 1.27 10^3/uL (1.2-3.4); Absolute Neutrophil Count 3.52 10^3/uL (1.2-6.7); Basophils % 1.6; Eosinophils % 2.6; HCT 37.2 % (36.0-46.0); HGB 11.7 g/dL (11.2-15.7); Immature Grans % 0.5; MCH 31.3 pg (27.0-33.0); MCHC 31.5 % (32.0-36.0); MCV 99.5 fL (80-95); MPV 10.1 fL (8.0-11.0); Monocytes % 12.2; Neutrophils % 61.1; Nucleated RBC 0 %; Platelet Count 154 10^3/uL (130-400); RBC 3.74 10^6/uL (3.93-5.22); RDW 15.8 % (11.7-14.6); RDW-SD 58.2 fL; WBC 5.76 10^3/uL (4.4-10.8)
[2021-12-14 10:03] LABS: Ammonia 53 umol/L (11-32)
[2021-12-14 10:13] LABS: INR 1.3 (0.9-1.1); Prothrombin Time 13.2 sec (9.3-11.0)
[2021-12-14 10:52] LABS: ALT 39 U/L (14-59); AST 39 U/L (15-37); Albumin 3.1 g/dL (3.4-5.0); Alkaline Phosphatase 280 U/L (46-116); Anion Gap 7.9 mmol/L (3-11); BUN 27 mg/dL (7-18); Bilirubin, Total 2.3 mg/dL (0.2-1.0); C-Reactive Protein 1.15 mg/dL (0.0-0.3); CO2 24.1 mmol/L (21.0-32.0); CREATININE 1.7 mg/dL (0.55-1.02); Calcium 8.3 mg/dL (8.5-10.1); Chloride 103 mmol/L (98-107); Estimated GFR 31.32 (mL/min/1.73m2); Glucose 88 mg/dL (74-106); Magnesium 1.6 mg/dL (1.8-2.4); NT-proBNP 2969 pg/mL (<300); Potassium 4.5 mmol/L (3.5-5.1); Sodium 135 mmol/L (136-145); Total Protein 6.5 g/dL (6.4-8.2)
== END 2021-12-14 02:54 | disposition home or self-care (01) ==
LOC: LBO 02:53
PROVIDERS: PCP Family Medicine; Visit Provider Surgery
DX: I50.9 Heart failure, unspecified (principal); K74.60 Unspecified cirrhosis of liver; B19.20 Unspecified viral hepatitis C without hepatic coma; B18.2 Chronic viral hepatitis C; I48.91 Unspecified atrial fibrillation
CPT/HCPCS: 36415; 80053; 82140; 83735; 83880; 85025; 85610; 86140

== ENCOUNTER 2021-12-14 10:01 | Day surgery (SDC) | payer MEDICARE, MEDICAID, SELFPAY ==
--- NOTE | 2021-12-13 18:43 | PDOC.DSDIS_ITS ---
Discharge Plan Disposition Patient Disposition: HOME Condition: Good Discharge Details Reason For Visit: thoro and paracentisis Attending Provider: Hazel Lindsey Primary Care Provider: Dillon Muller Home Meds and New Rx's Prescriptions: No Action metoprolol tartrate 25 mg tablet 50 mg PO TID 0RF Label Comments: Patient reports increase from 25mg. 11/03/19, A.Day,RN nitroglycerin [Nitrostat] 0.4 mg tablet, sublingual 0.4 mg sublingual Q5M PRN0RF Rx Instructions: do not exceed 3 doses per episode lactulose 20 gram/30 mL solution 30 g PO DAILY AM 0RF Rx Instructions: to achieve 3-4 stools/day 07/28/21 cgc simethicone [Gas Relief (simethicone)] 80 mg tablet,chewable 80 mg PO Q6H PRN (Reason: Flatulence) 0RF Rx Instructions: [facility] [place] [facility] furosemide 20 mg tablet 80 mg PO DAILY 0RF spironolactone 50 mg tablet See Rx Instructions PO DAILY 0RF Rx Instructions: 100 mg alternating with 200 mg PO daily; [facility] [place] note dated 10/12/21 [facility] [place] potassium chloride 20 mEq tablet,ER particles/crystals 20 meq PO DAILY 0RF Label Comments: TAKE 1 TABLET BY MOUTH DAILY acetaminophen 500 mg Tablet 500 mg PO Q6H PRN0RF Xifaxan 550 mg tablet 550 mg PO BID 0RF Label Comments: TAKE ONE TABLET BY MOUTH TWICE A DAY magnesium oxide 400 mg magnesium tablet 400 mg PO DAILY 0RF polyethylene glycol 3350 [Miralax] 17 gram/dose Powder 17 g PO DAILY 0RF Discharge Instructions Additional Instructions: -high protein diet -remove dressing in am -activity as tolerated -go to the ER if fever >101/bleeding/shortness of breath or chest pain -repeat procedure in 2 wks Activity:: Activity as Tolerated Remove Dressings/Wound Care:: 24 hours Shower/Bathe:: 24 hours Diet:: Other Discharge Orders Discharge Orders: Discharge Order (Routine); Ordered 12/13/21 Ordered By: Hazel Lindsey
--- NOTE | 2021-12-14 | DI.RAD_ITS ---
Exam(s) XR PORTABLE CHEST AP EXAM: XR PORTABLE CHEST AP CLINICAL HISTORY: s/p thor TECHNIQUE: 2D digital imaging was performed of the chest. One image was obtained. An AP view was ob tained. COMPARISON: CR XR PORTABLE CHEST AP from 11/30/2021 FINDINGS: MEDIASTINUM: Normal. HEART: Normal. PULMONARY VASCULATURE: Normal. LUNGS: Clear. PLEURAL SPACE: The right pleural effusion is similar in size compared to the examination from earlier in the day. No pneumothorax is present. There is no left pleural effusion. BONE:Within normal limits for the patient's age. Stable thoracic scoliosis. OTHER FINDINGS:Normal. IMPRESSION: Persistent right pleural effusion. DATA REPOSITORY: RADIATION DOSE DELIVERED:
--- NOTE | 2021-12-14 08:00 | DI.RAD_ITS ---
Exam(s) XR CHEST 2V PA LATERAL EXAM: XR CHEST 2V PA LATERAL CLINICAL HISTORY: pre-procedure, pleural effusion, J90 TECHNIQUE: 2D digital imaging was performed of the chest. Two images were obtained. PA and lateral views were obtained. COMPARISON: CR XR PORTABLE CHEST AP from 11/30/2021 CR XR CHEST 2V PA LATERAL from 11/30/2021 FINDINGS: MEDIASTINUM: Normal. HEART: Normal. PULMONARY VASCULATURE: Normal. LUNGS: Clear. PLEURAL SPACE: There is a stable right pleural effusion. No left pleural effusion is seen. No pneum othorax. BONE:Within normal limits for the patient's age. Stable right convex thoracic scoliosis. OTHER FINDINGS:Normal. IMPRESSION: Stable right pleural effusion. DATA REPOSITORY: RADIATION DOSE DELIVERED:
[2021-12-14 10:16] VITALS: BP 118/86; PULSE 98; RESP 18; TEMP 36.1; O2SAT 100
[2021-12-14] MEDS: Sodium Bicarbonate 50 MEQ/50 ML VIAL (13:00)
[2021-12-14 13:56] VITALS: BP 131/78; PULSE 84; RESP 16; TEMP 36.1; O2SAT 98
--- NOTE | 2021-12-14 15:14 | ROE_ITS ---
Documented by User: KLEVER Bianchi 12/14/21 15:30 Date of service: 12/14/21 Time of Service: 15:14 Operative Note Operative Note DATE OF PROCEDURE: 12/14/21 PRE-OP DIAGNOSIS: Cirrhosis/SOB POST-OP DIAGNOSIS: same PROCEDURE: The patient is brought to the procedure room and placed in the seated position.? Ultrasound is used to localize the pocket on the right chest.? The area is marked and then prepped and draped in the usual sterile fashion using a ChloraPrep scrub solution. 10 cc's? of 1% Lidocaine with epi is used to anesthetize the T10 interspace. ? The small chai is made with a #11 blade.? The needle and catheter is then inserted over the top of the rib, aspirating as it is inserted.? The needle is then removed.? The catheter is then hooked up to the Vacutainer system and 5200 cc's of emil-colored fluid is evacuated.? The catheter is removed; pressure is held. 3-0 prolene suture was used to re- approximate the skin. Sterile compression dressing is applied. ?Portable chest x-ray shows no pneumothorax. The patient is brought to the procedure room and placed in the supine position.? Placement chosen on top in the right upper quadrant.? A time-out is done.? Ultrasound is used to localize the pocket.? The area is prepped and draped in the usual sterile fashion using a ChloraPrep scrub solution.? 18 cc's of 1% Lidocaine with epinephrine is used for local anesthetization.? The abdomen is punctured and the catheter is inserted. ? 2800 cc of light yellow fluid is evacuated today.? The catheter is removed. 3-0 prolene suture was used to re- approximate the skin. Pressure dressing is applied. ? The patient tolerated the procedure well without complication. Pt is given instructions in wound care, activity, medications, and warning signs: SOB, increasing in pain, chest pain, redness or temperature- if these occur, come to ED. Refer to Anesthesia Record
== END 2021-12-14 14:24 | disposition home or self-care (01) ==
LOC: SUR 10:01
PROVIDERS: PCP Family Medicine; Visit Provider Surgery
PROC: (CPT 32554; principal; 2021-12-14 11:00)
DX: J90 Pleural effusion, not elsewhere classified (principal); R18.8 Other ascites
CPT/HCPCS: 32554; 49082; 36415; 80053; 71045; 71046; 82140; 83735; 83880; 85025; 85610; 86140

== ENCOUNTER 2021-12-24 13:27 | Emergency (ER) | payer MEDICARE, MEDICAID, SELFPAY ==
[2021-12-24 13:55] VITALS: BP 127/78; PULSE 68; RESP 17; TEMP 36.4; O2SAT 99
--- NOTE | 2021-12-24 14:15 | ED.GENADUL_ITS ---
Discharge Plan Disposition Patient Disposition: HOME Condition: Improving Discharge Details Chief Complaint: Abd Prob Clinical Impression: Ascites Primary Care Provider: Dillon Muller ED Provider: Jesus Nettles Home Meds and New Rx's Prescriptions: No Action nitroglycerin [Nitrostat] 0.4 mg tablet, sublingual 0.4 mg sublingual Q5M PRN0RF Rx Instructions: do not exceed 3 doses per episode lactulose 20 gram/30 mL solution 30 ml PO DAILY 0RF Rx Instructions: to achieve 3-4 stools/day 07/28/21 cgc spironolactone 50 mg tablet 100 mg PO BID 0RF potassium chloride 20 mEq tablet,ER particles/crystals 20 meq PO DAILY 0RF Label Comments: TAKE 1 TABLET BY MOUTH DAILY acetaminophen 500 mg Tablet 500 mg PO Q6H PRN0RF Xifaxan 550 mg tablet 550 mg PO BID 0RF Label Comments: TAKE ONE TABLET BY MOUTH TWICE A DAY furosemide 80 mg tablet 80 mg PO DAILY 0RF Label Comments: TAKE ONE TABLET BY MOUTH EVERY DAY metoprolol tartrate 50 mg tablet 50 mg PO TID 0RF simethicone [Gas Relief Extra Strength] 125 mg Tablet,Chewable 125 mg PO BID-QID PRN0RF magnesium oxide 400 mg magnesium tablet 400 mg PO DAILY 0RF Discharge Instructions Instructions: Paracentesis (DC) Additional Instructions: Please return to the emergency department develop worsening abdominal pain nausea vomiting feeling faint, fevers chills or other abnormal symptomatology. Please follow-up with your primary care team as scheduled on Monday. Medical Decision Making 56-year-old female history of hepatitis C, cirrhosis, recurrent ascites and pleural effusions presents with worsening abdominal discomfort tense ascites, no respiratory symptomatology, afebrile nontoxic nonperitoneal, does have tense ascites on examination, was able to find a large pocket of abdominal fluid in left lower quadrant, patient usually sees Dr. Lindsey for her recurrent ascites and drainage in day surgery, Dr. Galloway present on today, patient is comfortable with bedside paracentesis here in the emergency department. Have consented regarding risks and benefits. Will assess basic labs to exclude any bleeding dyscrasia such as thrombocytopenia or elevated INR. No evidence of spontaneous bacterial peritonitis or bowel obstruction or other serious intra- abdominal infection. 16: 45 patient resting comfortable paracentesis; creatinine elevated but near her bed. Despite hyponatremia likely related to fluid overload state, no respiratory distress; will monitor hemodynamic status, likely dc home. Has outpatient followup on monday patient resting early no acute distress. Leaking of ascites controlled after suturing puncture site. Patient to follow-up on Monday. Return precautions given for worsening pain fevers chills nausea vomiting presyncopal or syncopal episodes or other abnormal symptoms. HPI General Date/Time Provider Initiated Documentation: 12/24/21 13:56 . HPI Narrative: 56-year-old female history of cirrhosis secondary to hepatitis C, CHF, chronic recurrent abdominal ascites and pleural effusions presents with worsening abdominal distention tense ascites discomfort for the past several days, lasted a paracentesis on 12/14. Endorses that she does have a lot of scar tissue and proteinaceous material in her ascites which is made removing a lot of fluid from her abdomen difficult in the past. Denies fevers chills nausea or vomiting. Has been able to have normal bowel movements. Related Data Home Medications Medication Instructions Recorded Confirmed nitroglycerin 0.4 mg sublingual 0.4 mg SUBLINGUAL Q5M PRN 04/05/21 12/24/21 tablet (Nitrostat) magnesium oxide 400 mg PO DAILY 05/25/21 12/24/21 lactulose 20 gram/30 mL oral 30 ml PO DAILY ml 07/29/21 12/24/21 solution potassium chloride 20 mEq 20 meq PO DAILY 08/23/21 12/24/21 tablet,extended release(part/cryst) acetaminophen 500 mg tablet 500 mg PO Q6H PRN 10/05/21 12/24/21 spironolactone 50 mg tablet 100 mg PO BID tab 10/12/21 12/24/21 rifaximin 550 mg tablet (Xifaxan) 550 mg PO BID 11/16/21 12/24/21 furosemide 80 mg tablet 80 mg PO DAILY 12/24/21 12/24/21 metoprolol tartrate 50 mg tablet 50 mg PO TID 12/24/21 12/24/21 simethicone 125 mg chewable tablet 125 mg PO BID-QID PRN 12/24/21 12/24/21 (Gas Relief Extra Strength) Allergies Allergy/AdvReac Type Severity Reaction Status Date / Time amphetamine aspartate Allergy Severe Facial Verified 12/24/21 14:55 [From Adderall] Swelling, Blisters, Tongue Swelling, Rash, amphetamine sulfate Allergy Severe Facial Verified 12/24/21 14:55 [From Adderall] Swelling, Blisters, Tongue Swelling, Rash, dextroamphetamine saccharate Allergy Severe Facial Verified 12/24/21 14:55 [From Adderall] Swelling, Blisters, Tongue Swelling, Rash, dextroamphetamine sulfate Allergy Severe Facial Verified 12/24/21 14:55 [From Adderall] Swelling, Blisters, Tongue Swelling, Rash, Penicillins Allergy Intermediate Hives, Verified 12/24/21 14:55 Rash, Tongue Swelling codeine AdvReac Mild Constipatio Verified 12/24/21 14:55 n General Stated Complaint: Abd Prob JOE: 3 Review of Systems Narrative: Review of Systems Constitutional: negative Eyes: negative ENT: negative Cardiovascular: negative Respiratory: negative Gastrointestinal: negative : Abdominal pain, abdominal ascites Musculoskeletal: negative Skin: negative Neurologic: negative Psych: negative PFSH All Active Problems (Updated 12/24/21 @ 17:14 by Jesus Nettles MD) Ascites (Acute) Encephalopathy chronic (Acute) Cardiomyopathy (Active 04/22/13) Congestive heart failure (Acute 04/22/13) Pleural effusion (Acute 04/22/13) History of gallstones (Active) Depressive disorder (Active) Anxiety (Active) Adult attention deficit hyperactivity disorder (Active) Constipation (Active) Irritable colon (Active) Smoking history (Active) History of surgery (Active) Uterine ablation approxinmately 2006 Two sections. Chronic hepatitis C (Chronic) Treated and cured, relapsed 02/2021 will treat with harvoni CKD (chronic kidney disease) stage 4, GFR 15-29 ml/min (Acute) Atrial fibrillation with controlled ventricular rate (Acute) Advanced hepatic cirrhosis (Chronic) Hep C & ETOH Nephrotic syndrome (Acute) Hypokalemia (Acute) Prerenal azotemia (Acute) Cirrhosis of liver with ascites (Acute) 11/10/21 Telehealth [facility] [place] [facility] Hypokalemia due to excessive renal loss of potassium (Acute) Hydrothorax (Acute) 03/31/21 [facility] [place] [facility] Hepatic encephalopathy (Acute) 03/31/21 telehealth [facility] [place] [facility] Seasonal allergic rhinitis (Acute) 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) (Acute) Per [facility] [place] [facility] note from 05/11/21 Abdominal ascites (Acute) Medical History (Updated 12/24/21 @ 17:14 by Jesus Nettles MD) Anxiety Attention deficit hyperactivity disorder, combined type 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 History of abdominal paracentesis Irritable colon Renal failure syndrome Surgical History section x2 History of ileal conduit History of thoracentesis (~08/03/20) 08/10/20 08/21/20 History of thoracentesis (~08/31/20) Hx of tubal ligation S/P abdominal paracentesis (~08/03/20) Family History Mother Hypertensive disorder, systemic arterial Cancer Cervical Father Hypertensive disorder, systemic arterial Maternal Grandfather Diabetes Maternal Grandmother Cancer Ovarian Social History Smoking/Tobacco Use Status: Former Tobacco Use Quit Date: 09/18/18 Smoking risk assessment performed?: Yes Alcohol Intake: former Drug use: Never Substance use type: does not use Adopted: No Caregiver/Support person: No Foster care: No Household members: family Housing: house Number of Children: 4 number of grandchildren: 2 Communication Needs: None Do you need help understanding health information?: Often current occupation: Used to work for [employer] Current gender identity: female What is your relationship status?: How often do you talk on the phone with friends or family?: three or more times per week Panel score (0-1 are the most socially isolated patients): 2 What type of physical activity do you participate in: none Seatbelt use: always 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 Working smoke detector in home: Yes Fire extinguisher in home: Yes Carbon monox detector in home: Yes Do you feel safe at home: Yes Do you feel safe in your relationship?: Yes Exam Narrative Exam Narrative: Physical Examination General: alert, awake, cooperative, resting comfortably, no acute distress HEENT: normocephalic, atraumatic; PERRL, EOM intact, conjunctiva normal; no nasal discharge; moist mucous membranes, oral and pharyngeal mucosa normal, tolerating secretions Neck: supple, trachea midline; full ROM Chest: normal to inspection Respiratory: normal respiratory effort, speaking in full sentences, clear to auscultation, no wheezing, rales or rhonchi Cardiac: regular rate, regular rhythm, S1S2 intact, no murmurs rubs or gallops GI: Tense ascites, nontender, nonperitoneal Skin: Jaundice; no lesions, rashes or trauma appreciated; 2 prior sites on the right side of her abdomen noted, wound clean dry intact well-healing. Neuro: AAOx3, normal speech, moving all extremities Psych: Appropriate mood and affect Course Vital Signs Vital signs: Vital Signs Temperature 36.4 C L 12/24/21 13:55 Pulse 68 12/24/21 13:55 Respiratory Rate 17 12/24/21 13:55 Blood Pressure 127/78 12/24/21 13:55 Pulse Oximetry 99 12/24/21 13:55 Temperature 36.4 C L 12/24/21 13:55 Temperature Source Tympanic 12/24/21 13:55 Pulse 68 12/24/21 13:55 Respiratory Rate 17 12/24/21 13:55 Respiratory Effort Tripod 12/24/21 14:01 Blood Pressure 127/78 12/24/21 13:55 Blood Pressure Position Supine 12/24/21 13:55 Pulse Oximetry 99 12/24/21 13:55 Oxygen Delivery Method Room Air 12/24/21 13:55 Oxygen Flow Rate 0 12/24/21 13:55 Pain Level 8 12/24/21 13:55 Comment 12/24/21 13:55 Procedures Paracentesis Time Out Performed: Yes Local Anesthetic: Lidocaine 1% Amount of anesthesia used (mL): 5 Fluid: clear Post Procedure Exam: awake, alert Patient Tolerated Procedure: well Complications: other (initial attempt, catheter kinked in subcutaneous tissue; new kit opened, catheter advanced without any kinking; total of 4 L straw colo red clear ascited removed; patient leaking through occlusive dressing. 1 x 4-0 vicryl stitch simple interrupted to puncture site)
[2021-12-24 14:49] LABS: Abs Immature Grans 0.03 10^3/uL (0.0-0.06); Absolute Basophil Count 0.08 10^3/uL (0.0-0.2); Absolute Eosinophil Count 0.12 10^3/uL (0.0-0.7); Absolute Lymphocyte Count 1.21 10^3/uL (1.2-3.4); Absolute Monocyte Count 0.94 10^3/uL (0.1-0.8); Absolute Neutrophil Count 2.82 10^3/uL (1.2-6.7); Basophils % 1.5; Eosinophils % 2.3; HGB 12.3 g/dL (11.2-15.7); Immature Grans % 0.6; Lymphocytes % 23.3; MCH 31.1 pg (27.0-33.0); MCHC 32.4 % (32.0-36.0); MCV 96.2 fL (80-95); MPV 9.7 fL (8.0-11.0); Monocytes % 18.1; Neutrophils % 54.2; Nucleated RBC 0 %; Platelet Count 150 10^3/uL (130-400); RBC 3.95 10^6/uL (3.93-5.22); RDW-SD 56.4 fL
[2021-12-24 15:02] LABS: ALT 44 U/L (14-59); AST 45 U/L (15-37); Albumin 3.1 g/dL (3.4-5.0); Alkaline Phosphatase 251 U/L (46-116); Anion Gap 6.1 mmol/L (3-11); BUN 33 mg/dL (7-18); Bilirubin, Total 2.4 mg/dL (0.2-1.0); CO2 24.9 mmol/L (21.0-32.0); CREATININE 1.8 mg/dL (0.55-1.02); Calcium 8.5 mg/dL (8.5-10.1); Chloride 101 mmol/L (98-107); Estimated GFR 29.32 (mL/min/1.73m2); Glucose 86 mg/dL (74-106); Sodium 132 mmol/L (136-145); Total Protein 7.1 g/dL (6.4-8.2)
[2021-12-24 15:03] LABS: INR 1.2 (0.9-1.1); PTT Activated 31.5 sec (21.0-27.5); Prothrombin Time 12.2 sec (9.3-11.0)
[2021-12-24 17:38] VITALS: BP 104/73; PULSE 89; RESP 20; TEMP 36.6; O2SAT 98
== END 2021-12-24 17:38 | disposition home or self-care (01) ==
PROVIDERS: Emergency Provider Emergency Medicine; PCP Family Medicine
DX: R18.8 Other ascites (principal); K74.60 Unspecified cirrhosis of liver
CPT/HCPCS: 49082; 80053; 85025; 85610; 85730

== ENCOUNTER 2021-12-28 03:16 | Outpatient (CLI) | payer MEDICARE, MEDICAID, SELFPAY ==
[2021-12-28 08:20] LABS: HCT 35.8 % (36.0-46.0); HGB 11.6 g/dL (11.2-15.7); MCH 31.4 pg (27.0-33.0); MCHC 32.4 % (32.0-36.0); MPV 10.2 fL (8.0-11.0); Platelet Count 148 10^3/uL (130-400); RBC 3.69 10^6/uL (3.93-5.22); RDW 16.1 % (11.7-14.6); WBC 5.16 10^3/uL (4.4-10.8)
[2021-12-28 08:31] LABS: Prothrombin Time 12.5 sec (9.3-11.0)
[2021-12-28 08:32] LABS: Ammonia 65 umol/L (11-32)
[2021-12-28 08:38] LABS: INR 1.2 (0.9-1.1)
[2021-12-28 08:40] LABS: ALT 38 U/L (14-59); AST 43 U/L (15-37); Albumin 2.7 g/dL (3.4-5.0); Alkaline Phosphatase 230 U/L (46-116); Anion Gap 5.7 mmol/L (3-11); BUN 34 mg/dL (7-18); Bilirubin, Total 2.5 mg/dL (0.2-1.0); C-Reactive Protein 0.81 mg/dL (0.0-0.3); CO2 23.3 mmol/L (21.0-32.0); CREATININE 1.7 mg/dL (0.55-1.02); Chloride 102 mmol/L (98-107); Estimated GFR 31.32 (mL/min/1.73m2); Glucose 104 mg/dL (74-106); Magnesium 1.9 mg/dL (1.8-2.4); NT-proBNP 2721 pg/mL (<300); Potassium 4.3 mmol/L (3.5-5.1); Sodium 131 mmol/L (136-145); Total Protein 6.3 g/dL (6.4-8.2)
== END 2021-12-28 03:17 | disposition home or self-care (01) ==
LOC: LBO 03:16
PROVIDERS: PCP Family Medicine; Visit Provider Surgery
DX: I50.9 Heart failure, unspecified (principal); K74.60 Unspecified cirrhosis of liver; I48.91 Unspecified atrial fibrillation; B18.2 Chronic viral hepatitis C; Z79.01 Long term (current) use of anticoagulants
CPT/HCPCS: 36415; 80053; 85027; 82140; 83735; 83880; 85610; 86140

== ENCOUNTER 2021-12-28 08:50 | Day surgery (SDC) | payer MEDICARE, MEDICAID, SELFPAY ==
--- NOTE | 2021-12-28 08:43 | DI.RAD_ITS ---
Exam(s) XR CHEST 2V PA LATERAL EXAM: XR CHEST 2V PA LATERAL CLINICAL HISTORY: pre procedure, pleural effusion, J90 TECHNIQUE: 2D digital imaging was performed of the chest. Two images were obtained. PA and lateral views were obtained. COMPARISON: CR XR PORTABLE CHEST AP from 12/14/2021 CR XR CHEST 2V PA LATERAL from 12/14/2021 FINDINGS: MEDIASTINUM: Normal. HEART: Normal. PULMONARY VASCULATURE: Normal. LUNGS: Clear. PLEURAL SPACE: There does appear to be slight increase in size of the right pleural effusion since . No left pleural effusion or pneumothorax is present. BONE:Within normal limits for the patient's age. Right convex thoracic scoliosis. OTHER FINDINGS:Normal. IMPRESSION: Slight increase in size of the right pleural effusion since 12/14/2021. DATA REPOSITORY: RADIATION DOSE DELIVERED:
[2021-12-28 09:07] VITALS: BP 117/95; PULSE 77; RESP 24; TEMP 36.5; O2SAT 100
[2021-12-28] MEDS: Sodium Bicarbonate 50 MEQ/50 ML VIAL (09:45)
--- NOTE | 2021-12-28 10:02 | W.PM.DSUDISC ---
Discharge Plan Disposition Patient Disposition: HOME Condition: Good Discharge Details Reason For Visit: fluid removal Attending Provider: Hazel Lindsey Primary Care Provider: Dillon Muller Home Meds and New Rx's Prescriptions: No Action nitroglycerin [Nitrostat] 0.4 mg tablet, sublingual 0.4 mg sublingual Q5M PRN0RF Rx Instructions: do not exceed 3 doses per episode lactulose 20 gram/30 mL solution 30 ml PO DAILY 0RF Rx Instructions: to achieve 3-4 stools/day 07/28/21 cgc spironolactone 50 mg tablet 100 mg PO BID 0RF potassium chloride 20 mEq tablet,ER particles/crystals 20 meq PO DAILY 0RF Label Comments: TAKE 1 TABLET BY MOUTH DAILY acetaminophen 500 mg Tablet 500 mg PO Q6H PRN0RF Xifaxan 550 mg tablet 550 mg PO BID 0RF Label Comments: TAKE ONE TABLET BY MOUTH TWICE A DAY furosemide 80 mg tablet 80 mg PO DAILY 0RF Label Comments: TAKE ONE TABLET BY MOUTH EVERY DAY metoprolol tartrate 50 mg tablet 50 mg PO TID 0RF simethicone [Gas Relief Extra Strength] 125 mg Tablet,Chewable 125 mg PO BID-QID PRN0RF magnesium oxide 400 mg magnesium tablet 400 mg PO DAILY 0RF Discharge Instructions Additional Instructions: -cont high protein diet -f/u in 2 weeks for repeat procedure. IF you feel you need to have the procedure earlier, either call the clinic, or go to the ER. -no strenuous activity x24 hrs -bathe in 24 hrs -ice for pain Discharge Orders Discharge Orders: Discharge Order (Routine); Ordered 12/28/21 Ordered By: Hazel Lindsey
[2021-12-28 10:30] VITALS: BP 113/74; PULSE 77; RESP 16; TEMP 35.8; O2SAT 99
[2021-12-28] MEDS: Normal Saline Flush 10 ML SYR IV ×2 (10:30→11:11)
[2021-12-28] MEDS: ALBUMIN HUMAN 25 GM/100 ML BTL IV ×2 (10:32→11:14)
--- NOTE | 2021-12-28 10:39 | ROE_ITS ---
Date of service: 12/28/21 Time of Service: 10:39 Operative Note Operative Note PRE-OP DIAGNOSIS: Cirrhosis POST-OP DIAGNOSIS: same PROCEDURE: The patient is brought to the procedure room and placed in the seated position.? Ultrasound is used to localize the pocket on the right chest.? The area is marked and then prepped and draped in the usual sterile fashion using a ChloraPrep scrub solution. 8 cc's? of 1% Lidocaine with epi is used to anesthetize the T10 interspace. ? The small chai is made with a #11 blade.? The needle and catheter is then inserted over the top of the rib, aspirating as it is inserted.? The needle is then removed.? The catheter is then hooked up to the Vacutainer system and 1300 cc's of emil-colored fluid is evacuated.? The catheter is removed; pressure is held. 3-0 prolene suture was used to re- approximate the skin. Sterile compression dressing is applied. ?Portable chest x-ray shows no pneumothorax. The patient is brought to the procedure room and placed in the supine position.? Placement chosen on top in the right upper quadrant.? A time-out is done.? Ultrasound is used to localize the pocket.? The area is prepped and draped in the usual sterile fashion using a ChloraPrep scrub solution.? 4 cc's of 1% Lidocaine with epinephrine is used for local anesthetization.? The abdomen is punctured and the catheter is inserted. ? 5200 cc of light yellow fluid is evacuated today.? The catheter is removed. 3-0 prolene suture was used to re- approximate the skin. Pressure dressing is applied. ? The patient tolerated the procedure well without complication. Pt is given instructions in wound care, activity, medications, and warning signs: SOB, increasing in pain, chest pain, redness or temperature- if these occur, come to ED. SURGEON: Hazel Lindsey INSPECTOR QUALITY ASSURANCE: Manuela Kessler ANESTHESIA TYPE: Local By Surgeon ESTIMATED BLOOD LOSS: 0 PATHOLOGY: none sent COMPLICATIONS: None Patient was transported to: same day Patient's condition: stable
--- NOTE | 2021-12-28 11:02 | DI.RAD_ITS ---
Exam(s) XR PORTABLE CHEST AP POST LINE EXAM: XR PORTABLE CHEST AP POST LINE CLINICAL HISTORY: thoro TECHNIQUE: 2D digital imaging was performed of the chest. One image was obtained. An AP view was ob tained. COMPARISON: CR XR PORTABLE CHEST AP POST LINE from 07/23/2020 CR XR CHEST 2V PA LATERAL from 12/28/2021 FINDINGS: MEDIASTINUM: Normal. HEART: Normal. PULMONARY VASCULATURE: Normal. LUNGS: Clear. PLEURAL SPACE: The right pleural effusion appears stable. There is a question of a tiny right apical pneumothorax. BONE:Within normal limits for the patient's age. OTHER FINDINGS:Normal. IMPRESSION: Stable right pleural effusion. Question of a tiny right apical pneumothorax. DATA REPOSITORY: RADIATION DOSE DELIVERED:
[2021-12-28 11:07] VITALS: BP 108/78; PULSE 74; RESP 16; TEMP 36.3; O2SAT 97
[2021-12-28 11:40] VITALS: BP 104/70; PULSE 74; RESP 16; TEMP 36.2; O2SAT 100
== END 2021-12-28 11:51 | disposition home or self-care (01) ==
PROVIDERS: PCP Family Medicine; Visit Provider Surgery
PROC: (CPT 32554; principal; 2021-12-28 09:15)
DX: J90 Pleural effusion, not elsewhere classified (principal); R18.8 Other ascites; K74.60 Unspecified cirrhosis of liver
CPT/HCPCS: 32554; 49082; 20985; 27130; 36415; 71045; 80053; 85027; 96365; 96366; 71046; 82140; 83735; 83880; 85610; 86140

== ENCOUNTER 2021-12-30 17:18 | Emergency (ER) | payer MEDICARE, MEDICAID, SELFPAY ==
[2021-12-30 17:33] VITALS: BP 113/77; PULSE 77; RESP 19; TEMP 36.9; O2SAT 99
[2021-12-30 18:46] LABS: Abs Immature Grans 0.03 10^3/uL (0.0-0.06); Absolute Basophil Count 0.05 10^3/uL (0.0-0.2); Absolute Eosinophil Count 0.13 10^3/uL (0.0-0.7); Absolute Lymphocyte Count 1.15 10^3/uL (1.2-3.4); Absolute Monocyte Count 0.72 10^3/uL (0.1-0.8); Absolute Neutrophil Count 3.91 10^3/uL (1.2-6.7); Basophils % 0.8; Eosinophils % 2.2; HCT 35.8 % (36.0-46.0); HGB 11.8 g/dL (11.2-15.7); Immature Grans % 0.5; Lymphocytes % 19.2; MCH 31.5 pg (27.0-33.0); MCV 95.5 fL (80-95); MPV 10.2 fL (8.0-11.0); Neutrophils % 65.3; Platelet Count 147 10^3/uL (130-400); RBC 3.75 10^6/uL (3.93-5.22); RDW 16.1 % (11.7-14.6); RDW-SD 56.1 fL; WBC 5.99 10^3/uL (4.4-10.8)
[2021-12-30 18:57] LABS: ALT 43 U/L (14-59); AST 44 U/L (15-37); Albumin 3.3 g/dL (3.4-5.0); Alkaline Phosphatase 230 U/L (46-116); BUN 33 mg/dL (7-18); Bilirubin, Total 2.2 mg/dL (0.2-1.0); CREATININE 1.7 mg/dL (0.55-1.02); Calcium 8.3 mg/dL (8.5-10.1); Chloride 103 mmol/L (98-107); Estimated GFR 31.32 (mL/min/1.73m2); Glucose 89 mg/dL (74-106); Lipase 243 U/L (73-393); Potassium 4.3 mmol/L (3.5-5.1); Sodium 134 mmol/L (136-145); Total Protein 6.7 g/dL (6.4-8.2)
--- NOTE | 2021-12-30 19:04 | NUR.NOTE ---
Nursing Note:Pt triaged as soon as able, Pt assessed by provider very shortly after being triaged and then moved to room two. Pt refused IV even though Nursing attempted to explain need for IV with possible testing and ABX administration. Pt still adamantly refused IV. Labs and BC obtained by [facility] and sent to lab. Nursing had to step out of room, was going back to do dressing on Back in a few min. Pt went to Bathroom and dressed in gown and informed nursing she was leaving, Nursing tried to reason with Pt and explain pros of staying for labs, treatments, and dressings. Pt still refused. Provider informed, also had discussion with Pt and Pt still chose to leave. Pt did sign AMA form.
--- NOTE | 2021-12-31 20:05 | ED.GENADUL_ITS ---
Discharge Plan Disposition Patient Disposition: AGAINST MEDICAL ADVICE Discharge Details Clinical Impression: Abdominal pain Primary Care Provider: Dillon Muller ED Provider: Henny Felix Home Meds and New Rx's Prescriptions: Continued nitroglycerin [Nitrostat] 0.4 mg tablet, sublingual 0.4 mg sublingual Q5M PRN0RF Rx Instructions: do not exceed 3 doses per episode lactulose 20 gram/30 mL solution 30 ml PO DAILY 0RF Rx Instructions: to achieve 3-4 stools/day 07/28/21 cgc spironolactone 50 mg tablet 100 mg PO BID 0RF potassium chloride 20 mEq tablet,ER particles/crystals 20 meq PO DAILY 0RF Label Comments: TAKE 1 TABLET BY MOUTH DAILY acetaminophen 500 mg Tablet 500 mg PO Q6H PRN0RF Xifaxan 550 mg tablet 550 mg PO BID 0RF Label Comments: TAKE ONE TABLET BY MOUTH TWICE A DAY furosemide 80 mg tablet 80 mg PO DAILY 0RF Label Comments: TAKE ONE TABLET BY MOUTH EVERY DAY metoprolol tartrate 50 mg tablet 50 mg PO TID 0RF simethicone [Gas Relief Extra Strength] 125 mg Tablet,Chewable 125 mg PO BID-QID PRN0RF magnesium oxide 400 mg magnesium tablet 400 mg PO DAILY 0RF Discharge Data Discharge Date/Time-TO BE ENTERED AT DEPARTURE: 12/30/21 18:44 Medical Decision Making Patient has become very agitated regarding the length of her stay and the fact that her bandages have not been replaced, I offered to personally replace her bandages the patient is declined and states she must leave the She understands that she is leaving against her medical recommendation especially considering her comorbidities She is fully alert, oriented, of decisional capacity at time of my assessment in the emergency department is discharged home program capacity Medical Records Medical records reviewed: Yes I reviewed the patient's medical records. HPI General Date/Time Provider Initiated Documentation: 12/30/21 17:52 . HPI Narrative: This 56-year-old female with history of ascites, hepatic encephalopathy, cardiomyopathy, CHF, CKD presents with reports Abdominal Pain shortness of breath. States that she is status post paracentesis and thoracentesis yesterday . She states she drainage from the site since the event occurred. She denies fever or chills. She states that her abdomen feels firm. She states has had similar symptoms in the past. She denies any exacerbating or alleviating factors. She has not currently drinking alcohol. Related Data Home Medications Medication Instructions Recorded Confirmed nitroglycerin 0.4 mg sublingual 0.4 mg SUBLINGUAL Q5M PRN 04/05/21 12/30/21 tablet (Nitrostat) magnesium oxide 400 mg PO DAILY 05/25/21 12/30/21 lactulose 20 gram/30 mL oral 30 ml PO DAILY ml 07/29/21 12/30/21 solution potassium chloride 20 mEq 20 meq PO DAILY 08/23/21 12/30/21 tablet,extended release(part/cryst) acetaminophen 500 mg tablet 500 mg PO Q6H PRN 10/05/21 12/30/21 spironolactone 50 mg tablet 100 mg PO BID tab 10/12/21 12/30/21 rifaximin 550 mg tablet (Xifaxan) 550 mg PO BID 11/16/21 12/30/21 furosemide 80 mg tablet 80 mg PO DAILY 12/24/21 12/30/21 metoprolol tartrate 50 mg tablet 50 mg PO TID 12/24/21 12/30/21 simethicone 125 mg chewable tablet 125 mg PO BID-QID PRN 12/24/21 12/30/21 (Gas Relief Extra Strength) Allergies Allergy/AdvReac Type Severity Reaction Status Date / Time amphetamine aspartate Allergy Severe Facial Verified 12/28/21 09:04 [From Adderall] Swelling, Blisters, Tongue Swelling, Rash, amphetamine sulfate Allergy Severe Facial Verified 12/28/21 09:04 [From Adderall] Swelling, Blisters, Tongue Swelling, Rash, dextroamphetamine saccharate Allergy Severe Facial Verified 12/28/21 09:04 [From Adderall] Swelling, Blisters, Tongue Swelling, Rash, dextroamphetamine sulfate Allergy Severe Facial Verified 12/28/21 09:04 [From Adderall] Swelling, Blisters, Tongue Swelling, Rash, Penicillins Allergy Intermediate Hives, Verified 12/28/21 09:04 Rash, Tongue Swelling codeine AdvReac Mild Constipatio Verified 12/28/21 09:04 n General Stated Complaint: Abd Prob JOE: 3 Review of Systems All systems reviewed & are unremarkable except as noted in HPI and below PFSH All Active Problems (Updated 12/31/21 @ 20:21 by KLEVER Howard) Abdominal pain (Acute) Ascites (Acute) Encephalopathy chronic (Acute) Cardiomyopathy (Active 04/22/13) Congestive heart failure (Acute 04/22/13) Pleural effusion (Acute 04/22/13) History of gallstones (Active) Depressive disorder (Active) Anxiety (Active) Adult attention deficit hyperactivity disorder (Active) Constipation (Active) Irritable colon (Active) Smoking history (Active) History of surgery (Active) Uterine ablation approxinmately 2006 Two sections. Chronic hepatitis C (Chronic) Treated and cured, relapsed 02/2021 will treat with harvoni CKD (chronic kidney disease) stage 4, GFR 15-29 ml/min (Acute) Atrial fibrillation with controlled ventricular rate (Acute) Advanced hepatic cirrhosis (Chronic) Hep C & ETOH Nephrotic syndrome (Acute) Hypokalemia (Acute) Prerenal azotemia (Acute) Cirrhosis of liver with ascites (Acute) 11/10/21 Telehealth [facility] [place] Gastro Hypokalemia due to excessive renal loss of potassium (Acute) Hydrothorax (Acute) 03/31/21 [facility] [place] Gastro Hepatic encephalopathy (Acute) 03/31/21 telehealth 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 History of abdominal paracentesis Irritable colon Renal failure syndrome Surgical History (Updated 12/29/21 @ 15:57 by Brisa Paredes RN) section x2 History of ileal conduit History of thoracentesis (~12/28/21) 08/03/20,08/10/20 08/21/20,08/31/20 Hx of tubal ligation S/P abdominal paracentesis (~12/28/21) Family History Mother Hypertensive disorder, systemic arterial Cancer Cervical Father Hypertensive disorder, systemic arterial Maternal Grandfather Diabetes Maternal Grandmother Cancer Ovarian Social History Smoking/Tobacco Use Status: Former Tobacco Use Quit Date: 09/18/18 Smoking risk assessment performed?: Yes Alcohol Intake: former Drug use: Never Substance use type: does not use Adopted: No Caregiver/Support person: No Foster care: No Household members: family Housing: house Number of Children: 4 number of grandchildren: 2 Communication Needs: None Do you need help understanding health information?: Often current occupation: Used to work for [employer] Current gender identity: female What is your relationship status?: How often do you talk on the phone with friends or family?: three or more times per week Panel score (0-1 are the most socially isolated patients): 2 What type of physical activity do you participate in: none Seatbelt use: always Drive intox or ride w/intox mechanic driver: No Working smoke detector in home: Yes Fire extinguisher in home: Yes Carbon monox detector in home: Yes Do you feel safe at home: Yes Do you feel safe in your relationship?: Yes Exam Const General: cooperative and comfortable Orientation: alert and oriented x3 HENMT Head: normal to inspection Eyes Other: icterus, PEERLA Chest Other: Right thorax with swelling, tenderness, drainage from thoracentesis, no crepitus Resp Effort & Inspection: normal respiratory effort Cardio Rate: regular rate Rhythm: regular rhythm GI Other: Distended, no crepitus, drainage from paracentesis Skin General skin exam: no rashes or lesions noted Other: No surrounding erythema to paracentesis or thoracentesis site Neuro General: patient alert and patient oriented x3 Other: Ambulatory with steady gait, GCS 15 Course Vital Signs Vital signs: Vital Signs Temperature 36.9 C 12/30/21 17:33 Pulse 77 12/30/21 17:33 Respiratory Rate 19 12/30/21 17:33 Blood Pressure 113/77 12/30/21 17:33 Pulse Oximetry 99 12/30/21 17:33 Temperature 36.9 C 12/30/21 17:33 Temperature Source Oral 12/30/21 17:33 Pulse 77 12/30/21 17:33 Respiratory Rate 19 12/30/21 17:33 Respiratory Effort Non-Labored 12/30/21 17:38 Blood Pressure 113/77 12/30/21 17:33 Blood Pressure Position Sitting 12/30/21 17:33 Pulse Oximetry 99 12/30/21 17:33 Oxygen Delivery Method Room Air 12/30/21 17:33 Oxygen Flow Rate 0 12/30/21 17:33 Pain Level 6 12/30/21 17:38 Lab/Test Results Lab/Test Results: 12/30/21 18:25 Blood Blood Culture - Pending Laboratory Tests Range/Units 12/30/21 12/30/21 18:25 18:25 WBC (4.4-10.8) 10^3/uL 5.99 RBC (3.93-5.22) 10^6/uL 3.75 L Hgb (11.2-15.7) g/dL 11.8 Hct (36.0-46.0) % 35.8 L MCV (80-95) fL 95.5 H MCH (27.0-33.0) pg 31.5 MCHC (32.0-36.0) % 33.0 RDW (11.7-14.6) % 16.1 H Plt Count (130-400) 10^3/uL 147 MPV (8.0-11.0) fL 10.2 Immature Gran % 0.5 Neutrophils % 65.3 Lymphocytes % 19.2 Monocytes % 12.0 Eosinophils % 2.2 Basophils % 0.8 Nucleated RBC % (0.0-0.3) % 0.0 Absolute Neutrophils (1.2-6.7) 10^3/uL 3.91 Absolute Lymphocytes (1.2-3.4) 10^3/uL 1.15 L Absolute Monocytes (0.1-0.8) 10^3/uL 0.72 Absolute Eosinophils (0.0-0.7) 10^3/uL 0.13 Absolute Basophils (0.0-0.2) 10^3/uL 0.05 Sodium (136-145) mmol/L 134 L Potassium (3.5-5.1) mmol/L 4.3 Chloride (98-107) mmol/L 103 Carbon Dioxide (21.0-32.0) mmol/L 23.0 Anion Gap (3-11) mmol/L 8.0 BUN (7-18) mg/dL 33 H Creatinine (0.55-1.02) mg/dL 1.7 H Estimated GFR/1.73 m2 (mL/min/1.73m2) 31.32 Glucose (74-106) mg/dL 89 Calcium (8.5-10.1) mg/dL 8.3 L Total Bilirubin (0.2-1.0) mg/dL 2.2 H AST (15-37) U/L 44 H ALT (14-59) U/L 43 Alkaline Phosphatase (46-116) U/L 230 H Total Protein (6.4-8.2) g/dL 6.7 Albumin (3.4-5.0) g/dL 3.3 L Lipase (73-393) U/L 243
== END 2021-12-30 18:44 | disposition left against medical advice (07) ==
PROVIDERS: Emergency Provider Physician Assistant; PCP Family Medicine
DX: R10.9 Unspecified abdominal pain (principal); Z53.29 Procedure and treatment not carried out because of patient's decision for other reasons
CPT/HCPCS: 36415; 80053; 83690; 87040; 99283; 85025; 99282

== ENCOUNTER 2022-01-11 08:20 | Day surgery (SDC) | payer MEDICARE, MEDICAID, SELFPAY ==
--- NOTE | 2022-01-10 19:09 | PDOC.DSDIS_ITS ---
Discharge Plan Disposition Patient Disposition: HOME Condition: Stable Discharge Details Reason For Visit: chest/abdomen fluid removal Attending Provider: Hazel Lindsey Primary Care Provider: Dillon Muller Home Meds and New Rx's Prescriptions: No Action nitroglycerin [Nitrostat] 0.4 mg tablet, sublingual 0.4 mg sublingual Q5M PRN0RF Rx Instructions: do not exceed 3 doses per episode lactulose 20 gram/30 mL solution 30 ml PO DAILY 0RF Rx Instructions: to achieve 3-4 stools/day 07/28/21 cgc spironolactone 50 mg tablet 200 mg PO DAILY 0RF Rx Instructions: from [facility] hepatology note 01/06/22 gabapentin 100 mg capsule 100 mg PO QHS 0RF potassium chloride 20 mEq tablet,ER particles/crystals 20 meq PO DAILY 0RF Label Comments: TAKE 1 TABLET BY MOUTH DAILY acetaminophen 500 mg Tablet 500 mg PO Q6H PRN0RF Xifaxan 550 mg tablet 550 mg PO BID 0RF Label Comments: TAKE ONE TABLET BY MOUTH TWICE A DAY furosemide 80 mg tablet 80 mg PO DAILY 0RF Label Comments: TAKE ONE TABLET BY MOUTH EVERY DAY metoprolol tartrate 50 mg tablet 50 mg PO TID 0RF simethicone [Gas Relief Extra Strength] 125 mg Tablet,Chewable 125 mg PO BID-QID PRN0RF magnesium oxide 400 mg magnesium tablet 400 mg PO DAILY 0RF Discharge Instructions Additional Instructions: -no lifting over 20#'s x24 -shower in 24 hrs -high protein diet -continue same medications -F/u in 2 wks for repeat procedure -echo ordered to f/u on cardiac status. GI believes the continued abdominal fluid is cardiac in orgin Discharge Orders Discharge Orders: Discharge Order (Routine); Ordered 01/11/22 Ordered By: Hazel Lindsey Discharge Data Discharge Date/Time-TO BE ENTERED AT DEPARTURE: 01/11/22 12:50 Discharge Comment: Pt d/c'd to self in private vehicle.
--- NOTE | 2022-01-11 08:17 | DI.RAD_ITS ---
Exam(s) XR CHEST 2V PA LATERAL EXAM: XR CHEST 2V PA LATERAL CLINICAL HISTORY: pre THORACENTESIS,PLEURAL EFFUSION,J90 TECHNIQUE: 2D digital imaging was performed of the chest. Two images were obtained. PA and lateral views were obtained. COMPARISON: CR XR PORTABLE CHEST AP POST LINE from 12/28/2021 CR XR CHEST 2V PA LATERAL from 12/28/2021 FINDINGS: MEDIASTINUM: Normal. HEART: Normal. PULMONARY VASCULATURE: Normal. LUNGS: Clear. PLEURAL SPACE: Right pleural effusion appears similar in size compared to 12/28/2021. No left pleural effusion. No pneumothorax. BONE:Within normal limits for the patient's age. There is again seen a right convex thoracic scolios is. OTHER FINDINGS:Normal. IMPRESSION: Stable right pleural effusion. DATA REPOSITORY: RADIATION DOSE DELIVERED:
[2022-01-11 08:22] VITALS: BP 121/73; PULSE 83; RESP 18; TEMP 36.2; O2SAT 100
[2022-01-11 12:20] VITALS: BP 118/105; PULSE 93; RESP 18; TEMP 36.4; O2SAT 96
[2022-01-11] MEDS: Lidocaine 1% Multi-Dose W/EPI 1/100,000 50 ML VIAL (12:21)
[2022-01-11] MEDS: Sodium Bicarbonate 50 MEQ/50 ML VIAL (12:22)
--- NOTE | 2022-01-11 12:33 | DI.RAD_ITS ---
Exam(s) XR PORTABLE CHEST AP EXAM: XR PORTABLE CHEST AP CLINICAL HISTORY: s/p thoro TECHNIQUE: 2D digital imaging was performed of the chest. One image was obtained. An AP view was ob tained. COMPARISON: CR XR PORTABLE CHEST AP POST LINE from 12/28/2021 FINDINGS: MEDIASTINUM: Normal. HEART: Normal. PULMONARY VASCULATURE: Normal. LUNGS: Clear. PLEURAL SPACE: There has been a slight interval decrease in size of the right pleural effusion. No p neumothorax. No left pleural effusion. BONE:Within normal limits for the patient's age. Stable thoracic spine. OTHER FINDINGS:Normal. IMPRESSION: Slight interval decrease in size of the right pleural effusion following thoracentesis. No evidence of a pneumothorax. DATA REPOSITORY: RADIATION DOSE DELIVERED:
--- NOTE | 2022-01-11 13:04 | W.PM.OP ---
Documented by User: KLEVER Bianchi 01/11/22 13:07 Date of service: 01/11/22 Time of Service: 13:06 Operative Note Operative Note DATE OF PROCEDURE: 01/11/22 PRE-OP DIAGNOSIS: Cirrhosis POST-OP DIAGNOSIS: same PROCEDURE: The patient is brought to the procedure room and placed in the seated position.? Ultrasound is used to localize the pocket on the right chest.? The area is marked and then prepped and draped in the usual sterile fashion using a ChloraPrep scrub solution.4 cc's? of 1% Lidocaine with epi is used to anesthetize the T10 interspace. ? The small chai is made with a #11 blade.? The needle and catheter is then inserted over the top of the rib, aspirating as it is inserted.? The needle is then removed.? The catheter is then hooked up to the Vacutainer system and 2050 cc's of emil-colored fluid is evacuated.? The catheter is removed; pressure is held. 3-0 prolene suture was used to re-approximate the skin. Sterile compression dressing is applied. ?Portable chest x-ray shows no pneumothorax. The patient is brought to the procedure room and placed in the supine position.? Placement chosen on top in the right upper quadrant.? A time-out is done.? Ultrasound is used to localize the pocket.? The area is prepped and draped in the usual sterile fashion using a ChloraPrep scrub solution.? ? The abdomen is punctured and the catheter is inserted, this was performed at two seperate locations LUQ and LLQ, a total of 4200 cc of light yellow fluid is evacuated today.? 22 cc's of 1% Lidocaine with epinephrine was used for local anesthetization.The catheter is removed. 3-0 prolene suture was used to re-approximate the skin. Pressure dressing is applied. ? The patient tolerated the procedure well without complication. Pt is given instructions in wound care, activity, medications, and warning signs: SOB, increasing in pain, chest pain, redness or temperature- if these occur, come to ED. SURGEON: Hazel Lindsey CIVIL ENGINEERING PROJECT DESIGNER: Manuela Kessler ANESTHESIA TYPE: Local By Surgeon Refer to Anesthesia Record COMPLICATIONS: None Patient was transported to: no change Patient's condition: stable
== END 2022-01-11 12:50 | disposition home or self-care (01) ==
LOC: SUR 08:20
PROVIDERS: PCP Family Medicine; Visit Provider Surgery
PROC: 0W993ZZ Drainage of Right Pleural Cavity, Percutaneous Approach (ICD-10-PCS; CPT 32554; principal; 2022-01-11 10:45)
PROC: 0W9G3ZZ Drainage of Peritoneal Cavity, Percutaneous Approach (ICD-10-PCS; CPT 49082; 2022-01-11 10:45)
DX: K74.60 Unspecified cirrhosis of liver (principal); J91.8 Pleural effusion in other conditions classified elsewhere; R18.8 Other ascites
CPT/HCPCS: 32554; 49082; 36415; 80053; 85027; 71045; 71046; 82140; 83735; 83880; 85610; 86140

== ENCOUNTER 2022-01-11 13:28 | Outpatient (CLI) | payer MEDICARE, MEDICAID, SELFPAY ==
[2022-01-11 08:15] LABS: HCT 33.4 % (36.0-46.0); MCH 31.7 pg (27.0-33.0); MCHC 32.9 % (32.0-36.0); MCV 96.3 fL (80-95); MPV 9.8 fL (8.0-11.0); Platelet Count 142 10^3/uL (130-400); RBC 3.47 10^6/uL (3.93-5.22); RDW 16.7 % (11.7-14.6); RDW-SD 58.5 fL
[2022-01-11 08:30] LABS: INR 1.3 (0.9-1.1); Prothrombin Time 13.3 sec (9.3-11.0)
[2022-01-11 08:34] LABS: Ammonia 92 umol/L (11-32)
[2022-01-11 08:35] LABS: ALT 43 U/L (14-59); AST 41 U/L (15-37); Albumin 2.6 g/dL (3.4-5.0); Alkaline Phosphatase 179 U/L (46-116); Anion Gap 3.6 mmol/L (3-11); BUN 29 mg/dL (7-18); Bilirubin, Total 2.5 mg/dL (0.2-1.0); CO2 27.4 mmol/L (21.0-32.0); CREATININE 1.7 mg/dL (0.55-1.02); Calcium 8.2 mg/dL (8.5-10.1); Chloride 100 mmol/L (98-107); Estimated GFR 31.32 (mL/min/1.73m2); Glucose 131 mg/dL (74-106); Magnesium 1.6 mg/dL (1.8-2.4); NT-proBNP 2379 pg/mL (<300); Potassium 4.1 mmol/L (3.5-5.1); Sodium 131 mmol/L (136-145); Total Protein 5.9 g/dL (6.4-8.2)
== END 2022-01-11 13:29 | disposition home or self-care (01) ==
PROVIDERS: PCP Family Medicine; Visit Provider Surgery
DX: I50.9 Heart failure, unspecified (principal); K74.60 Unspecified cirrhosis of liver; I48.91 Unspecified atrial fibrillation; B18.2 Chronic viral hepatitis C; K72.00 Acute and subacute hepatic failure without coma; K76.7 Hepatorenal syndrome; E87.1 Hypo-osmolality and hyponatremia; E87.6 Hypokalemia
CPT/HCPCS: 36415; 80053; 85027; 82140; 83735; 83880; 85610; 86140

== ENCOUNTER 2022-01-19 04:59 | Emergency (ER) | payer MEDICARE, MEDICAID, SELFPAY ==
[2022-01-19] VITALS (9 sets, daily range): BP systolic 109–139; BP diastolic 54–114; PULSE 77–104; RESP 16–22; TEMP 37.1; O2SAT 96–100
--- NOTE | 2022-01-19 05:15 | DI.CT_ITS ---
Exam(s) CT ABDOMEN PELVIS WO EXAM: CT ABDOMEN PELVIS WO CLINICAL HISTORY: abdominal bloating/pain, hx of ascites. TECHNIQUE: Imaging Protocol: Axial computed tomography images with coronal and sagittal reformatted images were created and reviewed. Oral: / no COMPARISON: CT CT CHEST/ABD/PEL WO from 07/03/2021 CR,XR XR CHEST 2V PA LATERAL from 01/19/2022 FINDINGS: Exam limited by lack of oral and IV contrast There is a moderate-sized left pleural effusion with adjacent atelectasis. The left lung is clear. The heart is enlarged, stable. There is again noted to be a large quantity of ascites. The liver is extremely shrunken with nodular cirrhotic appearance no significant change.. Varices are again seen. A stone is noted in the gallbladder. Additional tiny stone is noted in the yudy hepatis not seen on the prior exam. No biliary dilatation. The spleen is within normal limits in size. The pancreas, adrenals and kidneys are unremarkable. Th e bowel is difficult to evaluate due to surrounding ascites and lack of contrast. No gross evidence o f obstruction. No free air. The uterus and bladder are unremarkable. There is edema in the anterior abdominal wall fat. Scoliosis and degenerative changes are noted in the spine. IMPRESSION: Moderate-sized pleural effusion and adjacent basilar atelectasis. Large quantity of ascites and cirrhotic liver. Cholelithiasis. New tiny stone in the region of the yudy hepatis which is not likely to be in the co mmon duct due to lack of biliary dilatation. Bowel not well evaluated without oral or IV contrast. No gross evidence of obstruction. RADIATION DOSE DELIVERED: 1,015.45mGy.cm Total DLP DATA REPOSITORY: All CT scans at this facility are submitted to the National Radiology Data Registry (NRDR) Dose Index Registry (DIR) with the [employer] (A[employer]). RADIATION OPTIMIZATION: All CT scans at this facility use at least one of these dose optimization te chniques: automated exposure control; mA and/or kV adjustment per patient size (includes targeted exa ms where dose is matched to clinical indication); or iterative reconstruction.
--- NOTE | 2022-01-19 05:15 | DI.RAD_ITS ---
Exam(s) XR CHEST 2V PA LATERAL EXAM: XR CHEST 2V PA LATERAL CLINICAL HISTORY: cough, abdominal bloating TECHNIQUE: 2D digital imaging was performed. COMPARISON: CR XR PORTABLE CHEST AP POST LINE from 12/28/2021 CR XR PORTABLE CHEST AP from 01/11/2022 CR XR CHEST 2V PA LATERAL from 01/11/2022 FINDINGS: MEDIASTINUM: Normal. HEART: Normal. PULMONARY VASCULATURE: Normal. LUNGS: Left lung clear. PLEURAL SPACE: Stable appearance of right pleural effusion and adjacent basilar atelectasis. No or p neumothorax. BONE:Scoliosis. IMPRESSION: Stable appearance of right pleural effusion and adjacent basilar atelectasis versus infiltrate. DATA REPOSITORY: RADIATION DOSE DELIVERED:
--- NOTE | 2022-01-19 05:31 | ED.GENADUL_ITS ---
Discharge Plan Disposition Patient Disposition: HOME Condition: Improving Discharge Details Clinical Impression: Advanced hepatic cirrhosis, Influenza A Primary Care Provider: Dillon Muller ED Provider: Victoriano Aleman Home Meds and New Rx's Prescriptions: Continued nitroglycerin [Nitrostat] 0.4 mg tablet, sublingual 0.4 mg sublingual Q5M PRN0RF Rx Instructions: do not exceed 3 doses per episode lactulose 20 gram/30 mL solution 30 ml PO DAILY 0RF Rx Instructions: to achieve 3-4 stools/day 07/28/21 cgc spironolactone 50 mg tablet 200 mg PO DAILY 0RF Rx Instructions: from [facility] [place] hepatology note 01/06/22 gabapentin 100 mg capsule 100 mg PO QHS 0RF acetaminophen 500 mg Tablet 500 mg PO Q6H PRN0RF Xifaxan 550 mg tablet 550 mg PO BID 0RF Label Comments: TAKE ONE TABLET BY MOUTH TWICE A DAY furosemide 80 mg tablet 80 mg PO DAILY 0RF Label Comments: TAKE ONE TABLET BY MOUTH EVERY DAY metoprolol tartrate 50 mg tablet 50 mg PO TID 0RF simethicone [Gas Relief Extra Strength] 125 mg Tablet,Chewable 125 mg PO BID-QID PRN0RF magnesium oxide 400 mg magnesium tablet 400 mg PO DAILY 0RF Held potassium chloride 20 mEq tablet,ER particles/crystals 20 meq PO DAILY 0RF Hold Instructions: Resume on 01/21/22. Hold for 2 days of dosing Label Comments: TAKE 1 TABLET BY MOUTH DAILY Discharge Instructions Instructions: Paracentesis (DC), Influenza (ED) Additional Instructions: Your flu test was positive today. Home to rest today. I discussed your case with Dr. Lindsey today and she will see you at your routine appointment. Return to the emergency department for any acute concerns Hold 2 days worth of your potassium as your potassium level was slightly high today at 5.3. Continue all other routine medications. Return for any acute concerns Medical Decision Making 56-year-old female with a history of both pleural effusions and abdominal ascites, who presents with abdominal bloating and cough with congestion over days time. She is afebrile with a pulse of proxy 100 at triage, normotensive. Her exam reveals a distended abdomen. Differential diagnosis includes recurrent ascites, must exclude pleural effusion, pneumonia or bronchitis. Patient had screening laboratories obtained and referred for chest x-ray and noncontrast CT scan of the abdomen. Initially, patient stated she wished to avoid abdominal imaging and requested to be discharged, she then changed her mind and stated she would undergo abdominal imaging. CT reveals ascites within the abdomen and note of the new visualized 5 mm stone at the level of the yudy hepatis overlying the common bile. Chest x-ray with right-sided pleural effusion with right basilar atelectasis. Laboratories are notable for slightly elevated potassium of 5.3 and sodium 127. White blood cell count is 4 with hematocrit 35, platelets 164. INR 1.3. BUN 37 and creatinine is 1.7. Troponin negative. Case discussed with Dr. Lindsey who agrees with proceeding with paracentesis. Patient declines the use of albumin. She was consented as to the risks and benefits of the procedure. Just shy of 4.5 L of fluid was removed and the patient agreed to receive albumin following paracentesis. She has a history of postprocedure leaks and a pursestring suture was placed. The patient will follow up with Dr. Lindsey as previously planned. Finally, due to the patient's cough she was screened for COVID and influenza. She is positive for influenza A. Lab Data Lab results reviewed: Yes I reviewed the patient's lab results. Labs: Laboratory Results - last 24 hr 01/19/22 01/19/22 01/19/22 05:20 05:20 05:20 WBC 4.64 RBC 3.70 L Hgb 11.8 Hct 35.0 L MCV 95 MCH 31.9 MCHC 33.7 RDW 17.0 H Plt Count 164 MPV 9.9 Immature Gran % 1.9 Neutrophils % 50.3 Lymphocytes % 16.8 Monocytes % 27.6 Eosinophils % 1.7 Basophils % 1.7 Nucleated RBC % 0.0 Absolute Neutrophils 2.33 Absolute Lymphocytes 0.78 L Absolute Monocytes 1.28 H Absolute Eosinophils 0.08 Absolute Basophils 0.08 PT 13.2 H INR 1.3 H APTT 33.5 H Sodium 127 L Potassium 5.3 H Chloride 97 L Carbon Dioxide 23.6 Anion Gap 6.4 BUN 37 H Creatinine 1.7 H Estimated GFR/1.73 m2 31.32 Glucose 103 Calcium 8.0 L Magnesium 1.8 Total Bilirubin 3.3 H AST 49 H ALT 42 Alkaline Phosphatase 189 H Troponin I < 50 Total Protein 6.2 L Albumin 2.7 L HPI General Mode of arrival: ambulatory . Date/Time Provider Initiated Documentation: 01/19/22 05:21 . Limitations to Documentation: no limitations . Information obtained by: patient and family . History of Present Illness 56 year old F presents to the emergency department with the chief complaint of Cough and abdominal bloating, described as moderate and similar to prior episodes, and is localized to the chest and abdomen. Patient reports no radiation. Patient started experiencing this hour(s) and it has been constant. improves with No relieving factors improve symptom(s), Patient notes denies chest pain, fever/chills, nausea/vomiting and syncope. Patient did receive the following treatments prior to arrival, none Related Data Home Medications Medication Instructions Recorded Confirmed nitroglycerin 0.4 mg sublingual 0.4 mg SUBLINGUAL Q5M PRN 04/05/21 01/11/22 tablet (Nitrostat) magnesium oxide 400 mg PO DAILY 05/25/21 01/11/22 lactulose 20 gram/30 mL oral 30 ml PO DAILY ml 07/29/21 01/11/22 solution potassium chloride 20 mEq 20 meq PO DAILY 08/23/21 01/11/22 tablet,extended release(part/cryst) acetaminophen 500 mg tablet 500 mg PO Q6H PRN 10/05/21 01/11/22 rifaximin 550 mg tablet (Xifaxan) 550 mg PO BID 11/16/21 01/11/22 furosemide 80 mg tablet 80 mg PO DAILY 12/24/21 01/11/22 metoprolol tartrate 50 mg tablet 50 mg PO TID 12/24/21 01/11/22 simethicone 125 mg chewable tablet 125 mg PO BID-QID PRN 12/24/21 01/11/22 (Gas Relief Extra Strength) gabapentin 100 mg capsule 100 mg PO QHS 01/06/22 01/11/22 spironolactone 50 mg tablet 200 mg PO DAILY tab 01/06/22 01/11/22 Allergies Allergy/AdvReac Type Severity Reaction Status Date / Time amphetamine aspartate Allergy Severe Facial Verified 01/19/22 05:14 [From Adderall] Swelling, Blisters, Tongue Swelling, Rash, amphetamine sulfate Allergy Severe Facial Verified 01/19/22 05:14 [From Adderall] Swelling, Blisters, Tongue Swelling, Rash, dextroamphetamine saccharate Allergy Severe Facial Verified 01/19/22 05:14 [From Adderall] Swelling, Blisters, Tongue Swelling, Rash, dextroamphetamine sulfate Allergy Severe Facial Verified 01/19/22 05:14 [From Adderall] Swelling, Blisters, Tongue Swelling, Rash, Penicillins Allergy Intermediate Hives, Verified 01/19/22 05:14 Rash, Tongue Swelling codeine AdvReac Mild Constipatio Verified 01/19/22 05:14 n General Stated Complaint: Abd Prob JOE: 3 Review of Systems Narrative: Recent cough and congestion. No fall or injury. No significant abdominal pain. Feels tense and bloated. History of multiple previous abdominal drainages. 8 systems reviewed and otherwise negative PFSH All Active Problems (Updated 01/19/22 @ 07:42 by Victoriano Aleman MD) Abdominal pain (Acute) Influenza A (Acute) Ascites (Acute) Encephalopathy chronic (Acute) Cardiomyopathy (Active 04/22/13) Congestive heart failure (Acute 04/22/13) Pleural effusion (Acute 04/22/13) History of gallstones (Active) Depressive disorder (Active) Anxiety (Active) Adult attention deficit hyperactivity disorder (Active) Constipation (Active) Irritable colon (Active) Smoking history (Active) History of surgery (Active) Uterine ablation approxinmately 2006 Two sections. Chronic hepatitis C (Chronic) Treated and cured, relapsed 02/2021 will treat with chrisoni CKD (chronic kidney disease) stage 4, GFR 15-29 ml/min (Acute) Atrial fibrillation with controlled ventricular rate (Acute) Advanced hepatic cirrhosis (Chronic) Hep C & ETOH Nephrotic syndrome (Acute) Hypokalemia (Acute) Prerenal azotemia (Acute) Cirrhosis of liver with ascites (Acute) 11/10/21 Telehealth [facility] [place] [facility] Hypokalemia due to excessive renal loss of potassium (Acute) Hydrothorax (Acute) 03/31/21 [facility] [place] [facility] Hepatic encephalopathy (Acute) 03/31/21 telehealth [facility] [place] [facility] Seasonal allergic rhinitis (Acute) 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) (Acute) Per [facility] [place] [facility] note from 05/11/21 Abdominal ascites (Acute) Medical History Anxiety Attention deficit hyperactivity disorder, combined type 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 History of abdominal paracentesis Irritable colon Renal failure syndrome Surgical History section x2 History of ileal conduit History of thoracentesis (~12/28/21) 08/03/20,08/10/20 08/21/20,08/31/20 Hx of tubal ligation S/P abdominal paracentesis (~12/28/21) Family History Mother Hypertensive disorder, systemic arterial Cancer Cervical Father Hypertensive disorder, systemic arterial Maternal Grandfather Diabetes Maternal Grandmother Cancer Ovarian Social History Smoking/Tobacco Use Status: Former Tobacco Use Quit Date: 09/18/18 Smoking risk assessment performed?: Yes Alcohol Intake: former Drug use: Never Substance use type: does not use Adopted: No Caregiver/Support person: No Foster care: No Household members: family Housing: house Number of Children: 4 number of grandchildren: 2 Communication Needs: None Do you need help understanding health information?: Often current occupation: Used to work for [employer] Current gender identity: female What is your relationship status?: How often do you talk on the phone with friends or family?: three or more times per week Panel score (0-1 are the most socially isolated patients): 2 What type of physical activity do you participate in: none Seatbelt use: always Drive intox or ride w/intox 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 Pleasant, interactive. HEAD: Normocephalic, atraumatic ENT: Mucous membranes moist, oropharynx unremarkable, External ear exam unremarkable EYES: PERRL, EOMI NECK: Full ROM, no CLAUDETTE, no menigismus CHEST/RESP: Nontender, clear to auscultation bilateral, no wheeze/rhonchi/rales CARDIOVASCULAR: RRR, no murmur, rub vargas. 2+ Rad pulse bilateral ABDOMEN: Soft, distended, fluid wave present, nontender no mass. +Bowel sounds EXT: Full ROM, no edema, no rash Neuro: Grossly normal neurologic exam, conversant, interactive. Psych: Speech fluent, thoughts congruent, affect normal Course Vital Signs Vital signs: Vital Signs Temperature 37.1 C 01/19/22 05:06 Pulse 104 H 01/19/22 05:06 Respiratory Rate 22 01/19/22 05:06 Blood Pressure 139/58 L 01/19/22 05:06 Pulse Oximetry 96 01/19/22 05:06 Temperature 37.1 C 01/19/22 05:06 Temperature Source Oral 01/19/22 05:06 Pulse 104 H 01/19/22 05:06 Respiratory Rate 22 01/19/22 05:06 Respiratory Effort 01/19/22 05:12 Blood Pressure 139/58 L 01/19/22 05:06 Blood Pressure Position Supine 01/19/22 05:06 Pulse Oximetry 96 01/19/22 05:06 Oxygen Delivery Method Room Air 01/19/22 05:06 Oxygen Flow Rate 0 01/19/22 05:06 Pain Level 8 01/19/22 05:06 Procedures Paracentesis Time Out Performed: Yes Local Anesthetic: Lidocaine 2% and with Epi Amount of anesthesia used (mL): 2.5 Fluid: clear Post Procedure Exam: awake, alert and normal BP Patient Tolerated Procedure: well Complications: none
[2022-01-19 05:39] LABS: Abs Immature Grans 0.09 10^3/uL (0.0-0.06); Absolute Basophil Count 0.08 10^3/uL (0.0-0.2); Absolute Eosinophil Count 0.08 10^3/uL (0.0-0.7); Absolute Lymphocyte Count 0.78 10^3/uL (1.2-3.4); Absolute Monocyte Count 1.28 10^3/uL (0.1-0.8); Absolute Neutrophil Count 2.33 10^3/uL (1.2-6.7); Basophils % 1.7; Eosinophils % 1.7; HGB 11.8 g/dL (11.2-15.7); Immature Grans % 1.9; Lymphocytes % 16.8; MCH 31.9 pg (27.0-33.0); MCHC 33.7 % (32.0-36.0); MCV 95 fL (80-95); MPV 9.9 fL (8.0-11.0); Monocytes % 27.6; Neutrophils % 50.3; Platelet Count 164 10^3/uL (130-400); RDW-SD 58.6 fL; WBC 4.64 10^3/uL (4.4-10.8)
[2022-01-19 05:54] LABS: ALT 42 U/L (14-59); AST 49 U/L (15-37); Albumin 2.7 g/dL (3.4-5.0); Alkaline Phosphatase 189 U/L (46-116); Anion Gap 6.4 mmol/L (3-11); BUN 37 mg/dL (7-18); Bilirubin, Total 3.3 mg/dL (0.2-1.0); CO2 23.6 mmol/L (21.0-32.0); CREATININE 1.7 mg/dL (0.55-1.02); Chloride 97 mmol/L (98-107); Estimated GFR 31.32 (mL/min/1.73m2); Glucose 103 mg/dL (74-106); Magnesium 1.8 mg/dL (1.8-2.4); Potassium 5.3 mmol/L (3.5-5.1); Sodium 127 mmol/L (136-145); Total Protein 6.2 g/dL (6.4-8.2); Troponin I < 50 ng/L (<or=60)
[2022-01-19 05:57] LABS: INR 1.3 (0.9-1.1); PTT Activated 33.5 sec (21.0-27.5); Prothrombin Time 13.2 sec (9.3-11.0)
--- NOTE | 2022-01-19 06:53 | DI.VRAD_ITS ---
PROCEDURE INFORMATION: Exam: CT Abdomen And Pelvis Without Contrast Exam date and time: 01/19/2022 6:31 AM Age: 56 years old Clinical indication: Abdominal pain; Generalized; Prior surgery; Surgery type: x 2, tubal ligation, paracentesis, HX of ileal conduit; Patient HX: Abdominal bloating/pain, HX of ascites; Additional info: HX of thoracentesis TECHNIQUE: Imaging protocol: Computed tomography of the abdomen and pelvis without contrast. Radiation optimization: All CT scans at this facility use at least one of these dose optimization techniques: automated exposure control; mA and/or kV adjustment per patient size (includes targeted exams where dose is matched to clinical indication); or iterative reconstruction. COMPARISON: CT CHEST/ABD/PEL WO 07/03/2021 3:46 PM FINDINGS: Pleural spaces: Right-sided pleural effusion with associated right basilar atelectasis. Liver: The liver demonstrates a nodular contour and heterogeneous echotexture compatible with cirrhosis. Gallbladder and bile ducts: Cholelithiasis. There is a newly visualized 5 mm stone at the level of the yudy hepatis, which appears to overlie the common duct. The possibility of choledocholithiasis cannot be excluded. Pancreas: Normal. No ductal dilation. Spleen: Normal. No splenomegaly. Adrenal glands: Normal. No mass. Kidneys and ureters: Normal. No hydronephrosis. Stomach and bowel: Unremarkable. No obstruction. No mucosal thickening. Appendix: No evidence of appendicitis. Intraperitoneal space: Large volume of ascites within the abdomen and pelvis. Vasculature: Unremarkable. No abdominal aortic aneurysm. Lymph nodes: Unremarkable. No enlarged lymph nodes. Urinary bladder: Unremarkable as visualized. Reproductive: Unremarkable as visualized. Bones/joints: Scoliotic curvature of the thoracolumbar spine. Multilevel degenerative changes. Soft tissues: Anasarca. IMPRESSION: 1. Moderate volume right-sided pleural effusion with right basilar atelectasis. 2. Large volume ascites within the abdomen and pelvis. 3. Cholelithiasis. In addition, there is a newly visualized 5 mm stone at the level of the yudy hepatis overlying the region of the common duct. Choledocholithiasis is not excluded. 4. Cirrhosis Dictated and Authenticated by: Justin Duque MD. Ordering:KAREN Pastrana MD
--- NOTE | 2022-01-19 06:54 | DI.VRAD_ITS ---
PROCEDURE INFORMATION: Exam: XR Chest Exam date and time: 01/19/2022 6:01 AM Age: 56 years old Clinical indication: Cough and other: Abdominal bloating; Prior surgery; Surgery type: HX of thoracentesis; Patient HX: Cough, abdominal bloating TECHNIQUE: Imaging protocol: XR of the chest. Views: 2 views. COMPARISON: CR XR PORTABLE CHEST AP 01/11/2022 12:21 PM FINDINGS: Lungs: Right basilar atelectasis versus consolidation. The lungs are otherwise clear. Pleural spaces: Right-sided pleural effusion with right basilar atelectasis versus consolidation. Heart/Mediastinum: Unremarkable. No cardiomegaly. Bones/joints: Unremarkable. IMPRESSION: Right-sided pleural effusion with right basilar atelectasis versus consolidation. Dictated and Authenticated by: Justin Duque MD. Ordering:KAREN Pastrana MD
[2022-01-19 07:39] LABS: COVID-19 PCR Negative (Negative); Influenza B PCR Negative (Negative); RSV PCR Negative (Negative)
[2022-01-19 07:41] LABS: Influenza A PCR Positive (Negative)
[2022-01-19] MEDS: ALBUMIN HUMAN 25 GM/100 ML BTL IV (07:54)
== END 2022-01-19 08:36 | disposition home or self-care (01) ==
PROVIDERS: Emergency Provider Emergency Medicine; PCP Family Medicine
DX: J10.1 Influenza due to other identified influenza virus with other respiratory manifestations (principal); K74.60 Unspecified cirrhosis of liver; R18.8 Other ascites; R05.1 Acute cough; Z20.822 Contact with and (suspected) exposure to COVID-19
CPT/HCPCS: 36415; 49082; 80053; 87637; 96365; 99284; 71046; 74176; 83735; 84484; 85025; 85610; 85730

== ENCOUNTER 2022-01-25 00:49 | Day surgery (SDC) | payer MEDICARE, MEDICAID, SELFPAY ==
--- NOTE | 2022-01-25 | DI.RAD_ITS ---
Exam(s) XR PORTABLE CHEST AP EXAM: XR PORTABLE CHEST AP CLINICAL HISTORY: s/p thoro TECHNIQUE: 2D digital imaging was performed. COMPARISON: CR XR CHEST 2V PA LATERAL from 01/25/2022 FINDINGS: There is a stable right pleural effusion and adjacent basilar atelectasis. The left lung remains vlad ar. The heart size is normal. Scoliosis is again noted.. IMPRESSION: Stable appearance of right pleural effusion. No evidence of pneumothorax DATA REPOSITORY: RADIATION DOSE DELIVERED:
--- NOTE | 2022-01-25 07:45 | DI.RAD_ITS ---
Exam(s) XR CHEST 2V PA LATERAL EXAM: XR CHEST 2V PA LATERAL CLINICAL HISTORY: pre-procedure, PLEURAL EFFUSION, J90. TECHNIQUE: 2D digital imaging was performed. COMPARISON: CR,XR XR CHEST 2V PA LATERAL from 01/19/2022 FINDINGS: 2 views: Heart size is unchanged. Scoliosis in the thoracic spine again noted, convex right. The size of the right pleural effusion is unchanged, remaining moderate in size. Infiltrate in the r ight lung base also again noted. Left lung is clear and there is no pleural effusion on the left side. IMPRESSION: Persistent unchanged moderate size right pleural effusion. Also unchanged infiltrate in the right eric ng base. DATA REPOSITORY: RADIATION DOSE DELIVERED:
[2022-01-25 11:39] VITALS: BP 113/76; PULSE 82; RESP 18; TEMP 36.5; O2SAT 100
[2022-01-25] MEDS: Lidocaine 1% Multi-Dose W/EPI 1/100,000 50 ML VIAL (17:04)
[2022-01-25] MEDS: Sodium Bicarbonate 50 MEQ/50 ML VIAL (17:04)
[2022-01-25 17:45] VITALS: BP 103/69; PULSE 70; RESP 16; TEMP 36.1; O2SAT 99
--- NOTE | 2022-01-25 17:45 | W.PM.DSUDISC ---
Discharge Plan Disposition Patient Disposition: HOME Condition: Stable Discharge Details Reason For Visit: removal fluid chest & abdomen Attending Provider: Hazel Lindsey Primary Care Provider: Dillon Muller Home Meds and New Rx's Prescriptions: No Action nitroglycerin [Nitrostat] 0.4 mg tablet, sublingual 0.4 mg sublingual Q5M PRN0RF Rx Instructions: do not exceed 3 doses per episode lactulose 20 gram/30 mL solution 30 ml PO DAILY 0RF Rx Instructions: to achieve 3-4 stools/day 07/28/21 cgc spironolactone 50 mg tablet 200 mg PO DAILY 0RF Rx Instructions: from [facility] [place] hepatology note 01/06/22 gabapentin 100 mg capsule 200 mg PO DAILY 0RF magnesium oxide 400 mg magnesium tablet 400 mg PO DAILY Qty: 90 3RF potassium chloride 20 mEq tablet,ER particles/crystals 20 meq PO DAILY 0RF Hold Instructions: Resume on 01/21/22. Hold for 2 days of dosing Label Comments: TAKE 1 TABLET BY MOUTH DAILY acetaminophen 500 mg Tablet 500 mg PO Q6H PRN0RF Xifaxan 550 mg tablet 550 mg PO BID 0RF Label Comments: TAKE ONE TABLET BY MOUTH TWICE A DAY furosemide 80 mg tablet 80 mg PO DAILY 0RF Label Comments: TAKE ONE TABLET BY MOUTH EVERY DAY metoprolol tartrate 50 mg tablet 50 mg PO TID 0RF simethicone [Gas Relief Extra Strength] 125 mg Tablet,Chewable 125 mg PO BID-QID PRN0RF Discharge Instructions Additional Instructions: -ensure or boost x3 per day if not eating. -activity as tolerated -fluids and rest -repeat in 2 weeks- February 08 Activity:: Activity as Tolerated Remove Dressings/Wound Care:: 24 hours Shower/Bathe:: 24 hours Diet:: high protein Discharge Orders Discharge Orders: Discharge Order (Routine); Ordered 01/25/22 Ordered By: Hazel Lindsey
--- NOTE | 2022-01-25 17:48 | ROE_ITS ---
Date of service: 01/25/22 Time of Service: 17:48 Operative Note Operative Note DATE OF PROCEDURE: 01/25/22 PRE-OP DIAGNOSIS: cirrhosis POST-OP DIAGNOSIS: same PROCEDURE: thorocentisis and paracentisis SURGEON: Hazel Lindsey UNIT MANAGER [employer]: Benjamin Alejo ANESTHESIA TYPE: Local By Surgeon Refer to Anesthesia Record PATHOLOGY: none sent COMPLICATIONS: None Patient was transported to: same day Patient's condition: stable Procedure Description: Pt is here today for thoracentesis for symptoms of shortness of breath.? Chest x-ray was reviewed prior to beginning the procedure.? Informed consent was obtained explaining risks and benefits of the procedure, including but not limited to bleeding, infection, pneumothorax, recurrence, complications of anesthesia, and other unforetold complications. ? PROCEDURE:? The patient is brought to the procedure room and placed in the seated position.? Ultrasound is used to localize the pocket on the right chest.? The area is marked and then prepped and draped in the usual sterile fashion using a ChloraPrep scrub solution.? 10 cc's of 1% Lidocaine is used to anesthetize the T10 interspace. ? The small chai is made with a #11 blade.? The needle and catheter is then inserted over the top of the rib, aspirating as it is inserted.? The needle is then removed.? The catheter is then hooked up to the Vacutainer system and 1400 cc's of straw-colored fluid is evacuated.? The catheter is removed; pressure is held.? Suture is p[laced. Sterile compression dressing is applied. This patient is then placed in the supine position. Placement was chosen in the right mid- quadrant, using US.? A time-out is done.? Ultrasound is used to localize the pocket.? The area is prepped and draped in the usual sterile fashion using a ChloraPrep scrub solution.? 20 cc's of 1% Lidocaine with epinephrine is used for local anesthetization.? The abdomen is punctured and the catheter is inserted.? 4300 liters of light yellow fluid is evacuated today.? The catheter is removed.?Suture is placed. Pressure dressing is applied.? The patient tolerated the procedure well without complication. Portable chest x-ray shows no pneumothorax.? Pt is given instructions in wound care, activity, medications, and warning signs: SOB, increasing in pain, chest pain, redness or temperature- if these occur, come to ED.
--- NOTE | 2022-01-25 18:17 | DI.VRAD_ITS ---
PROCEDURE INFORMATION: Exam: XR Chest Exam date and time: 01/25/2022 5:45 PM Age: 56 years old Clinical indication: Device placement; Other: S/P thorocentesis; Prior surgery; Surgery date: Post-operative (0-2 days) TECHNIQUE: Imaging protocol: XR of the chest. Views: 1 view. Other technique: Portable exam. COMPARISON: CR XR CHEST 2V PA LATERAL 01/25/2022 10:57 AM FINDINGS: Lungs: See Pleural spaces finding. Pleural spaces: There is a small right pleural effusion not significantly changed since earlier exam. Coarse right lower lobe parenchymal opacification is again noted, atelectasis versus consolidation. Heart/Mediastinum: Unremarkable. No cardiomegaly. Bones/joints: Dextroscoliosis again seen. IMPRESSION: No significant changes right pleural effusion with atelectasis versus consolidation. Dictated and Authenticated by: Naomi Craft MD. Ordering:JEFFREY Oliva MD
== END 2022-01-25 18:08 | disposition home or self-care (01) ==
PROVIDERS: PCP Family Medicine; Visit Provider Surgery
PROC: (CPT 32554; principal; 2022-01-25 14:15)
PROC: 0W9G3ZZ Drainage of Peritoneal Cavity, Percutaneous Approach (ICD-10-PCS; CPT 49082; 2022-01-25 14:15)
DX: J90 Pleural effusion, not elsewhere classified (principal); R18.8 Other ascites
CPT/HCPCS: 32554; 49082; 36415; 80053; 85027; 71045; 71046; 82140; 83735; 83880; 85610; 86140

== ENCOUNTER 2022-01-25 02:02 | Outpatient (CLI) | payer MEDICARE, MEDICAID, SELFPAY ==
[2022-01-25 10:54] LABS: HCT 34.9 % (36.0-46.0); MCH 31.7 pg (27.0-33.0); MCHC 34.4 % (32.0-36.0); MCV 92 fL (80-95); MPV 9.6 fL (8.0-11.0); Platelet Count 129 10^3/uL (130-400); RBC 3.79 10^6/uL (3.93-5.22); RDW 16.8 % (11.7-14.6); RDW-SD 57.1 fL; WBC 3.97 10^3/uL (4.4-10.8)
[2022-01-25 11:08] LABS: INR 1.3 (0.9-1.1); Prothrombin Time 13.1 sec (9.3-11.0)
[2022-01-25 11:21] LABS: Ammonia 52 umol/L (11-32)
[2022-01-25 11:48] LABS: ALT 50 U/L (14-59); AST 52 U/L (15-37); Albumin 2.7 g/dL (3.4-5.0); Alkaline Phosphatase 172 U/L (46-116); BUN 31 mg/dL (7-18); Bilirubin, Total 3.3 mg/dL (0.2-1.0); CREATININE 1.6 mg/dL (0.55-1.02); Calcium 7.8 mg/dL (8.5-10.1); Chloride 95 mmol/L (98-107); Estimated GFR 33.59 (mL/min/1.73m2); Glucose 99 mg/dL (74-106); Magnesium 1.5 mg/dL (1.8-2.4); NT-proBNP 4025 pg/mL (<300); Potassium 4.7 mmol/L (3.5-5.1); Sodium 126 mmol/L (136-145); Total Protein 5.8 g/dL (6.4-8.2)
== END 2022-01-25 02:03 | disposition home or self-care (01) ==
LOC: LBO 02:02
PROVIDERS: PCP Family Medicine; Visit Provider Surgery
DX: I50.9 Heart failure, unspecified (principal); K74.60 Unspecified cirrhosis of liver; I48.91 Unspecified atrial fibrillation; B18.2 Chronic viral hepatitis C; K76.7 Hepatorenal syndrome
CPT/HCPCS: 36415; 80053; 85027; 82140; 83735; 83880; 85610; 86140

== ENCOUNTER 2022-01-28 04:41 | Emergency (ER) | payer MEDICARE, MEDICAID, SELFPAY ==
[2022-01-28 05:04] VITALS: BP 119/68; PULSE 68; RESP 18; TEMP 36.4; O2SAT 95
--- NOTE | 2022-01-28 05:15 | RT.EKG_ITS ---
APPROVED REPORT Exam: Resting ECG Reason for Exam: IRREGULAR Patient Location: E HR:81 bpm ECG Measurements Heart Rate 81 AXIS ND [id number] P [id number] QRSd 102 QRS 92 QT 409 T 174 QTc 475 Conclusion Atrial fibrillation...V-rate 62-111, irreg A-activity Ventricular premature complex...V complex w/ short R-R interval Low voltage, extremity leads...all extremity leads <0.5mV Nonspecific T abnormalities, lateral leads...T <-0.10mV, I aVL V5 V6 There are no significant changes compared to prior EKG performed on 09/22/2020 at 09:35.
--- NOTE | 2022-01-28 05:23 | W.ED.GENAD ---
Discharge Plan Disposition Patient Disposition: HOME Condition: Stable Discharge Details Clinical Impression: Weakness, Nausea Primary Care Provider: Dillon Muller ED Provider: Ta Cox Meds and New Rx's Prescriptions: No Action nitroglycerin [Nitrostat] 0.4 mg tablet, sublingual 0.4 mg sublingual Q5M PRN Rx Instructions: do not exceed 3 doses per episode lactulose 20 gram/30 mL solution 30 ml PO DAILY Rx Instructions: to achieve 3-4 stools/day 07/28/21 cgc spironolactone 50 mg tablet 200 mg PO DAILY Rx Instructions: from [facility] [place] hepatology note 01/06/22 magnesium oxide 400 mg magnesium tablet 400 mg PO DAILY Qty: 90 3RF potassium chloride 20 mEq tablet,ER particles/crystals 20 meq PO DAILY Hold Instructions: Resume on 01/21/22. Hold for 2 days of dosing Label Comments: TAKE 1 TABLET BY MOUTH DAILY acetaminophen 500 mg Tablet 500 mg PO Q6H PRN Xifaxan 550 mg tablet 550 mg PO BID Label Comments: TAKE ONE TABLET BY MOUTH TWICE A DAY furosemide 80 mg tablet 80 mg PO DAILY Label Comments: TAKE ONE TABLET BY MOUTH EVERY DAY metoprolol tartrate 50 mg tablet 50 mg PO TID simethicone [Gas Relief Extra Strength] 125 mg Tablet,Chewable 125 mg PO BID-QID PRN Discharge Instructions Additional Instructions: You came to the ED with general weakness, fatigue and nausea as well as dental complaints. You declined labs as they were just done and asked to be discharged. We will provide you with a list of area dentist as they are the only ones that can help with your teeth. Return to ED for new/worse problems. Medical Decision Making Patient had presenting stating that she still feels unwell despite it being daily past influenza diagnosis. Lungs have a few scattered wheezes. Saturations are normal. Abdomen is soft and nontender no distended despite having paracentesis done 3 days ago. EKG was obtained by nursing and shows a flutter with no significant change from previous. Patient is declining IV or labs stating they would just check. Also declines chest x-ray. Wishes to be discharged. Did provide list of area dentist to follow-up with in regards to her teeth. Return to ED if problems. ECG Data Attestation: I personally reviewed and interpreted this ECG (s) as follows: Prior ECG tracings: available for review HPI General Mode of arrival: ambulatory. Date/Time Provider Initiated Documentation: 01/28/22 05:14. Limitations to Documentation: no limitations. Information obtained by: patient, RN notes reviewed and old records reviewed. HPI Narrative: Patient presents to the ED with complaint of generalized weakness, fatigue, insomnia, nausea. Patient diagnosed with influenza a couple of weeks ago. Patient is not feeling significantly improved though denies cough or shortness of breath now. She was seen by Dr. Vargas on Monday with labs and paracentesis done. She denies any abdominal pain. She denies vomiting. She is able to eat although this sometimes causes the nausea. She denies chest pain. She is reporting continued dental problems though does not have pain at this point. Feels that she has some swelling in her mouth but is not sure. Related Data Home Medications Medication Instructions Recorded Confirmed nitroglycerin 0.4 mg sublingual 0.4 mg sublingual Q5M PRN 04/05/21 01/28/22 tablet (Nitrostat) lactulose 20 gram/30 mL oral 30 ml PO DAILY 07/29/21 01/28/22 solution potassium chloride 20 mEq 20 meq PO DAILY 08/23/21 01/28/22 tablet,extended release(part/cryst) acetaminophen 500 mg tablet 500 mg PO Q6H PRN 10/05/21 01/28/22 rifaximin 550 mg tablet (Xifaxan) 550 mg PO BID 11/16/21 01/28/22 furosemide 80 mg tablet 80 mg PO DAILY 12/24/21 01/28/22 metoprolol tartrate 50 mg tablet 50 mg PO TID 12/24/21 01/28/22 simethicone 125 mg chewable tablet 125 mg PO BID-QID PRN 12/24/21 01/28/22 (Gas Relief Extra Strength) spironolactone 50 mg tablet 200 mg PO DAILY 01/06/22 01/28/22 magnesium oxide 400 mg PO DAILY #90 tabs 01/21/22 01/28/22 Previous Rx's Medication Instructions Recorded magnesium oxide 400 mg PO DAILY #90 tabs 01/21/22 Allergies Allergy/AdvReac Type Severity Reaction Status Date / Time amphetamine aspartate Allergy Severe Facial Verified 01/25/22 11:33 [From Adderall] Swelling, Blisters, Tongue Swelling, Rash, amphetamine sulfate Allergy Severe Facial Verified 01/25/22 11:33 [From Adderall] Swelling, Blisters, Tongue Swelling, Rash, dextroamphetamine saccharate Allergy Severe Facial Verified 01/25/22 11:33 [From Adderall] Swelling, Blisters, Tongue Swelling, Rash, dextroamphetamine sulfate Allergy Severe Facial Verified 01/25/22 11:33 [From Adderall] Swelling, Blisters, Tongue Swelling, Rash, Penicillins Allergy Intermediate Hives, Verified 01/25/22 11:33 Rash, Tongue Swelling codeine AdvReac Mild Constipatio Verified 01/25/22 11:33 n General Stated Complaint: Nausea/Vomit/Diar JOE: 3 Review of Systems Narrative: As documented in HPI otherwise negative as below. Const: no fever, chills, weakness Resp: no cough, SOB, pleuritic pain CV: no CP, diaphoresis, edema, syncope GI: no abdominal pain, vomiting, diarrhea Neuro: no headache, numbness, focal weakness, confusion PFSH All Active Problems (Updated 01/28/22 @ 06:10 by Ta Cox MD) Abdominal pain (Acute) Influenza A (Acute) Weakness (Acute) Nausea (Acute) Encephalopathy chronic (Acute) Cardiomyopathy (Active 04/22/13) Congestive heart failure (Acute 04/22/13) Pleural effusion (Acute 04/22/13) History of gallstones (Active) Depressive disorder (Active) Anxiety (Active) Adult attention deficit hyperactivity disorder (Active) Constipation (Active) Irritable colon (Active) Smoking history (Active) History of surgery (Active) Uterine ablation approxinmately 2006 Two sections. Chronic hepatitis C (Chronic) Treated and cured, relapsed 02/2021 will treat with clara CKD (chronic kidney disease) stage 4, GFR 15-29 ml/min (Acute) Atrial fibrillation with controlled ventricular rate (Acute) Advanced hepatic cirrhosis (Chronic) Hep C & ETOH Nephrotic syndrome (Acute) Hypokalemia (Acute) Prerenal azotemia (Acute) Cirrhosis of liver with ascites (Acute) 11/10/21 [facility] Hypokalemia due to excessive renal loss of potassium (Acute) Hydrothorax (Acute) 03/31/21 [facility] [place] [facility] Hepatic encephalopathy (Acute) 03/31/21 [facility] [place] [facility] Seasonal allergic rhinitis (Acute) 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) (Acute) Per [facility] [place] G[facility] note from 05/11/21 Abdominal ascites (Acute) Medical History Anxiety Attention deficit hyperactivity disorder, combined type 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 History of abdominal paracentesis Irritable colon Renal failure syndrome Surgical History section x2 History of ileal conduit History of thoracentesis (~12/28/21) 08/03/20,08/10/20 08/21/20,08/31/20 Hx of tubal ligation S/P abdominal paracentesis (~12/28/21) Family History Mother Hypertensive disorder, systemic arterial Cancer Cervical Father Hypertensive disorder, systemic arterial Maternal Grandfather Diabetes Maternal Grandmother Cancer Ovarian Social History Smoking/Tobacco Use Status: Former Tobacco Use Quit Date: 09/18/18 Smoking risk assessment performed?: Yes Alcohol Intake: former Drug use: Never Substance use type: does not use Adopted: No Caregiver/Support person: No Foster care: No Household members: family Housing: house Number of Children: 4 number of grandchildren: 2 Communication Needs: None Do you need help understanding health information?: Often current occupation: Used to work for [employer] Current gender identity: female What is your relationship status?: How often do you talk on the phone with friends or family?: three or more times per week Panel score (0-1 are the most socially isolated patients): 2 What type of physical activity do you participate in: none Seatbelt use: always Drive intox or ride w/intox cdl b driver: No Working smoke detector in home: Yes Fire extinguisher in home: Yes Carbon monox detector in home: Yes Do you feel safe at home: Yes Do you feel safe in your relationship?: Yes Exam Narrative Exam Narrative: Const: WDWN female in NAD. HEENT: NC/AT. Normal facial exam. Very poor dentition but no abscess appreciated. Neck: Supple. Trachea midline. Lungs: Normal respiratory effort. Lungs with few scattered wheezing. Cor: Irr/Irr without murmur/gallop. Good radial pulses. GI: Soft. NT. Distended. Neuro: A+O x 3. Normal speech, gait. Cranial nerves II - XII grossly intact. No gross motor or sensory deficit. Ext: No C/C/E. Skin: Warm and dry without rash. Course Vital Signs Vital signs: Vital Signs Temperature 97.5 F L 01/28/22 05:04 Pulse 68 01/28/22 05:04 Respiratory Rate 18 01/28/22 05:04 Blood Pressure 119/68 01/28/22 05:04 Pulse Oximetry 95 01/28/22 05:04 Temperature 97.5 F L 01/28/22 05:04 Temperature Source Skin 01/28/22 05:04 Pulse 68 01/28/22 05:04 Respiratory Rate 18 01/28/22 05:04 Blood Pressure 119/68 01/28/22 05:04 Pulse Oximetry 95 01/28/22 05:04 Oxygen Delivery Method Room Air 01/28/22 05:04 Oxygen Flow Rate 0 01/28/22 05:04 Pain Level 8 01/28/22 05:04
== END 2022-01-28 06:12 | disposition home or self-care (01) ==
PROVIDERS: Emergency Provider Emergency Medicine; PCP Family Medicine
DX: R53.1 Weakness (principal); R11.0 Nausea; I48.92 Unspecified atrial flutter
CPT/HCPCS: 80053; 93005; 99283; 82140; 83735; 85025; 93010

== ENCOUNTER → 2022-02-08 02:02 | Outpatient (CLI) | payer MEDICARE, MEDICAID, SELFPAY ==
--- NOTE | 2022-02-08 09:14 | DI.RAD_ITS ---
Exam(s) XR CHEST 2V PA LATERAL EXAM: XR CHEST 2V PA LATERAL CLINICAL HISTORY: pre- procedure, PLEURAL EFFUSION, J90 TECHNIQUE: COMPARISON: CR,XR XR PORTABLE CHEST AP from 01/25/2022 CR XR CHEST 2V PA LATERAL from 01/25/2022 FINDINGS: The heart is mildly enlarged. There is a right pleural effusion as noted on prior examination of January 25. There has been little interval change in the size of the effusion in comparison with the prio r examination. No left pleural effusion seen. Lungs remain clear except where obscured by pleural densities. IMPRESSION: Stable right pleural effusion as described above. RADIATION DOSE DELIVERED: Total DLP
== END ==
PROVIDERS: PCP Family Medicine; Visit Provider Surgery
DX: J90 Pleural effusion, not elsewhere classified (principal); I51.7 Cardiomegaly; Z01.818 Encounter for other preprocedural examination
CPT/HCPCS: 71046

== ENCOUNTER 2022-02-08 02:46 | Outpatient (CLI) | payer MEDICARE, MEDICAID, SELFPAY ==
[2022-02-08 09:07] LABS: HGB 11.3 g/dL (11.2-15.7); MCH 32.6 pg (27.0-33.0); MCHC 34.2 % (32.0-36.0); MCV 95 fL (80-95); MPV 10.1 fL (8.0-11.0); Platelet Count 120 10^3/uL (130-400); RBC 3.47 10^6/uL (3.93-5.22); RDW-SD 58.3 fL; WBC 5.33 10^3/uL (4.4-10.8)
[2022-02-08 09:15] LABS: Ammonia 75 umol/L (11-32)
[2022-02-08 09:16] LABS: INR 1.3 (0.9-1.1)
[2022-02-08 10:08] LABS: ALT 45 U/L (14-59); AST 51 U/L (15-37); Albumin 2.5 g/dL (3.4-5.0); Alkaline Phosphatase 204 U/L (46-116); Anion Gap 4.8 mmol/L (3-11); BUN 31 mg/dL (7-18); C-Reactive Protein 0.92 mg/dL (0.0-0.3); CO2 24.2 mmol/L (21.0-32.0); CREATININE 1.7 mg/dL (0.55-1.02); Calcium 8.1 mg/dL (8.5-10.1); Chloride 97 mmol/L (98-107); Estimated GFR 31.32 (mL/min/1.73m2); Glucose 86 mg/dL (74-106); Magnesium 1.9 mg/dL (1.8-2.4); NT-proBNP 3792 pg/mL (<300); Potassium 4.6 mmol/L (3.5-5.1); Sodium 126 mmol/L (136-145); Total Protein 5.7 g/dL (6.4-8.2)
== END 2022-02-08 02:47 | disposition home or self-care (01) ==
LOC: LBO 02:46
PROVIDERS: PCP Family Medicine; Visit Provider Surgery
DX: I50.9 Heart failure, unspecified (principal); I48.91 Unspecified atrial fibrillation; B18.2 Chronic viral hepatitis C; K74.60 Unspecified cirrhosis of liver; E87.6 Hypokalemia; E87.1 Hypo-osmolality and hyponatremia; Z79.01 Long term (current) use of anticoagulants
CPT/HCPCS: 36415; 80053; 85027; 82140; 83735; 83880; 85610; 86140

== ENCOUNTER 2022-02-08 09:17 | Day surgery (SDC) | payer MEDICARE, MEDICAID, SELFPAY ==
[2022-02-08 09:31] VITALS: BP 114/96; PULSE 70; RESP 18; TEMP 36.3; O2SAT 100
[2022-02-08] MEDS: Normal Saline Flush 10 ML SYR IV ×2 (10:00→12:15)
--- NOTE | 2022-02-08 10:30 | RT.EKG_ITS ---
APPROVED REPORT Exam: Resting ECG Reason for Exam: abnormal EKG last time she was in ED Patient Location: O HR:67 bpm ECG Measurements Heart Rate 67 AXIS IN [id number] P [id number] QRSd 101 QRS 39 QT 459 T 145 QTc 486 Conclusion Atrial fibrillation...V-rate 73- 73, irreg A-activity Low voltage, extremity and precordial leads...extremity<0.5mV, precordial<1.0mV Nonspecific T abnormalities, lateral leads...T <-0.10mV, I aVL V5 V6
[2022-02-08 12:05] VITALS: BP 123/92; PULSE 60; RESP 17; TEMP 36; O2SAT 100
--- NOTE | 2022-02-08 12:08 | W.PM.OP ---
Operative Note Operative Note DATE OF PROCEDURE: 02/08/22 PRE-OP DIAGNOSIS: cirrhosis POST-OP DIAGNOSIS: same PROCEDURE: paracentisis SURGEON: Hazel Lindsey ANESTHESIA TYPE: Local By Surgeon Refer to Anesthesia Record ESTIMATED BLOOD LOSS: 1 PATHOLOGY: none sent COMPLICATIONS: None Patient was transported to: same day Patient's condition: stable Procedure Description: The patient is brought to the procedure room and placed in the supine position.? Placement chosen on top in the right upper quadrant.? A time-out is done.? Ultrasound is used to localize the pocket.? The area is prepped and draped in the usual sterile fashion using a ChloraPrep scrub solution.? 10 cc's of 1% Lidocaine with epinephrine is used for local anesthetization.? The abdomen is punctured and the catheter is inserted.?6900 cc of light yellow fluid is evacuated today.? The catheter is removed.? Suture is placed. Pressure dressing is applied.? The patient tolerated the procedure well without complication.
--- NOTE | 2022-02-08 12:11 | PDOC.DSDIS_ITS ---
Discharge Plan Disposition Patient Disposition: HOME Condition: Good Discharge Details Reason For Visit: fluid removal Attending Provider: Hazel Lindsey Primary Care Provider: Dillon Muller Home Meds and New Rx's Prescriptions: No Action nitroglycerin [Nitrostat] 0.4 mg tablet, sublingual 0.4 mg sublingual Q5M PRN Rx Instructions: do not exceed 3 doses per episode lactulose 20 gram/30 mL solution 30 ml PO DAILY Rx Instructions: to achieve 3-4 stools/day 07/28/21 cgc spironolactone 50 mg tablet 200 mg PO DAILY Rx Instructions: from [facility] [place] hepatology note 01/06/22 magnesium oxide 400 mg magnesium tablet 400 mg PO DAILY Qty: 90 3RF potassium chloride 20 mEq tablet,ER particles/crystals 20 meq PO DAILY Hold Instructions: Resume on 01/21/22. Hold for 2 days of dosing Label Comments: TAKE 1 TABLET BY MOUTH DAILY acetaminophen 500 mg Tablet 500 mg PO Q6H PRN Xifaxan 550 mg tablet 550 mg PO BID Label Comments: TAKE ONE TABLET BY MOUTH TWICE A DAY furosemide 80 mg tablet 80 mg PO DAILY Label Comments: TAKE ONE TABLET BY MOUTH EVERY DAY metoprolol tartrate 50 mg tablet 50 mg PO TID simethicone [Gas Relief Extra Strength] 125 mg Tablet,Chewable 125 mg PO BID-QID PRN Discharge Instructions Additional Instructions: -ice for pain -suture removal in clinic next week or during next tap -high protein diet -repeat procedure February 23 w/ Dr. Buchanan Activity:: Activity as Tolerated Remove Dressings/Wound Care:: 24 hours Shower/Bathe:: 24 hours Diet:: high protein Discharge Orders Discharge Orders: Discharge Order (Routine); Ordered 02/07/22 Ordered By: Hazel Lindsey
[2022-02-08] MEDS: ALBUMIN HUMAN 25 GM/100 ML BTL IV ×2 (12:16→12:47)
== END 2022-02-08 13:35 | disposition home or self-care (01) ==
PROVIDERS: PCP Family Medicine; Visit Provider Surgery
PROC: 0W9G3ZZ Drainage of Peritoneal Cavity, Percutaneous Approach (ICD-10-PCS; CPT 49082; 2022-02-08 10:30)
DX: R18.8 Other ascites (principal)
CPT/HCPCS: 49082; 36415; 80053; 85027; 96365; 71046; 82140; 83735; 83880; 85610; 86140; 93005; 93010

== ENCOUNTER 2022-02-18 00:45 | Day surgery (SDC) | payer MEDICARE, MEDICAID, SELFPAY ==
--- NOTE | 2022-02-17 20:29 | W.PM.OP ---
Date of service: 02/18/22 Time of Service: 11:34 Operative Note Operative Note DATE OF PROCEDURE: 02/18/22 PRE-OP DIAGNOSIS: end stage cirrhosis POST-OP DIAGNOSIS: same PROCEDURE: thoracentisis/paracentisis SURGEON: Hazel Lindsey ANESTHESIA TYPE: Local By Surgeon Refer to Anesthesia Record ESTIMATED BLOOD LOSS: 1 PATHOLOGY: none sent COMPLICATIONS: None Patient was transported to: same day Patient's condition: stable Procedure Description: Pt is here today for thoracentesis for symptoms of shortness of breath.? Chest x-ray was reviewed prior to beginning the procedure.? Informed consent was obtained explaining risks and benefits of the procedure, including but not limited to bleeding, infection, pneumothorax, recurrence, complications of anesthesia, and other unforetold complications. ? PROCEDURE:? The patient is brought to the procedure room and placed in the seated position.? Ultrasound is used to localize the pocket on the right chest.? The area is marked and then prepped and draped in the usual sterile fashion using a ChloraPrep scrub solution.? 10 cc's of 1% Lidocaine is used to anesthetize the T10 interspace. ? The small chai is made with a #11 blade.? The needle and catheter is then inserted over the top of the rib, aspirating as it is inserted.? The needle is then removed.? The catheter is then hooked up to the Vacutainer system and 6400 cc's of straw-colored fluid is evacuated.? The catheter is removed; pressure is held.? Sterile compression dressing is applied. The patient is brought to the procedure room and placed in the supine position.? Placement chosen on top in the right upper quadrant.? A time-out is done.? Ultrasound is used to localize the pocket.? The area is prepped and draped in the usual sterile fashion using a ChloraPrep scrub solution.? 20 cc's of 1% Lidocaine with epinephrine is used for local anesthetization.? The abdomen is punctured and the catheter is inserted.? 750cc of light yellow fluid is evacuated today.? The catheter is removed.? Pressure dressing is applied.? The patient tolerated the procedure well without complication. ? Portable chest x-ray shows no pneumothorax.? ? Pt is given instructions in wound care, activity, medications, and warning signs: SOB, increasing in pain, chest pain, redness or temperature- if these occur, come to ED.
--- NOTE | 2022-02-17 20:33 | PDOC.DSDIS_ITS ---
Discharge Plan Disposition Patient Disposition: HOME Condition: Good Discharge Details Reason For Visit: fluid removal Attending Provider: Hazel Lindsey Primary Care Provider: Dillon Muller Home Meds and New Rx's Prescriptions: No Action nitroglycerin [Nitrostat] 0.4 mg tablet, sublingual 0.4 mg sublingual Q5M PRN Rx Instructions: do not exceed 3 doses per episode lactulose 20 gram/30 mL solution 30 ml PO DAILY Rx Instructions: to achieve 3-4 stools/day 07/28/21 cgc spironolactone 50 mg tablet 200 mg PO DAILY Rx Instructions: from [facility] [place] hepatology note 01/06/22 magnesium oxide 400 mg magnesium tablet 400 mg PO DAILY Qty: 90 3RF potassium chloride 20 mEq tablet,ER particles/crystals 20 meq PO DAILY Hold Instructions: Resume on 01/21/22. Hold for 2 days of dosing Label Comments: TAKE 1 TABLET BY MOUTH DAILY acetaminophen 500 mg Tablet 500 mg PO Q6H PRN Xifaxan 550 mg tablet 550 mg PO BID Label Comments: TAKE ONE TABLET BY MOUTH TWICE A DAY furosemide 80 mg tablet 80 mg PO DAILY Label Comments: TAKE ONE TABLET BY MOUTH EVERY DAY metoprolol tartrate 50 mg tablet 50 mg PO TID simethicone [Gas Relief Extra Strength] 125 mg Tablet,Chewable 125 mg PO BID-QID PRN gabapentin 100 mg Tablet 200 mg PO DAILY Discharge Instructions Additional Instructions: -F/u in 1 wk in surgery clinic for suture removal Activity:: Activity as Tolerated Remove Dressings/Wound Care:: 24 hours Shower/Bathe:: 24 hours Diet:: high protein
--- NOTE | 2022-02-18 10:55 | DI.RAD_ITS ---
Exam(s) XR CHEST 2V PA LATERAL EXAM: XR CHEST 2V PA LATERAL CLINICAL HISTORY: pre thoracentesis,pleural effusion,j90 TECHNIQUE: 2D digital imaging was performed of the chest. Two images were obtained. PA and lateral views were obtained. COMPARISON: CR XR CHEST 2V PA LATERAL from 02/08/2022 FINDINGS: MEDIASTINUM: Normal. HEART: Normal. PULMONARY VASCULATURE: Normal. LUNGS: Clear. PLEURAL SPACE: There is a persistent and stable right pleural effusion. No left pleural effusion or pneumothorax. BONE:Within normal limits for the patient's age. OTHER FINDINGS:Normal. IMPRESSION: Stable right pleural effusion. DATA REPOSITORY: RADIATION DOSE DELIVERED:
[2022-02-18 11:00] VITALS: BP 110/92; PULSE 89; RESP 18; TEMP 36.2; O2SAT 99
[2022-02-18] MEDS: Sodium Bicarbonate 50 MEQ/50 ML VIAL (12:21)
[2022-02-18] MEDS: Lidocaine 1% Multi-Dose W/EPI 1/100,000 50 ML VIAL (12:21)
--- NOTE | 2022-02-18 12:30 | DI.RAD_ITS ---
Exam(s) XR PORTABLE CHEST AP EXAM: XR PORTABLE CHEST AP CLINICAL HISTORY: Post-op TECHNIQUE: 2D digital imaging was performed of the chest. Two images were obtained. AP views were obtained. COMPARISON: CR,XR XR PORTABLE CHEST AP from 01/25/2022 CR XR CHEST 2V PA LATERAL from 02/18/2022 FINDINGS: MEDIASTINUM: Normal. HEART: Normal. PULMONARY VASCULATURE: Normal. LUNGS: Clear. PLEURAL SPACE: There does not appear to be any significant change in size of the right pleural effusi on. No pneumothorax is present. BONE:Within normal limits for the patient's age. OTHER FINDINGS:Normal. IMPRESSION: Stable right pleural effusion. DATA REPOSITORY: RADIATION DOSE DELIVERED:
[2022-02-18 12:35] VITALS: BP 118/78; PULSE 86; RESP 17; TEMP 36.3; O2SAT 97
== END 2022-02-18 13:10 | disposition home or self-care (01) ==
LOC: SUR 00:45
PROVIDERS: PCP Family Medicine; Visit Provider Surgery
PROC: (CPT 32554; principal; 2022-02-18 10:30)
PROC: 0W9G3ZZ Drainage of Peritoneal Cavity, Percutaneous Approach (ICD-10-PCS; CPT 49082; 2022-02-18 10:30)
DX: J90 Pleural effusion, not elsewhere classified (principal); R18.8 Other ascites; K74.60 Unspecified cirrhosis of liver
CPT/HCPCS: 32554; 49082; 36415; 80053; 85027; 71045; 71046; 82140; 83735; 83880; 85610; 86140

== ENCOUNTER 2022-02-18 01:38 | Outpatient (CLI) | payer MEDICARE, MEDICAID, SELFPAY ==
[2022-02-18 10:40] LABS: HGB 11.9 g/dL (11.2-15.7); MCH 32.2 pg (27.0-33.0); MCV 95 fL (80-95); MPV 9.8 fL (8.0-11.0); Platelet Count 140 10^3/uL (130-400); RDW 16.6 % (11.7-14.6)
[2022-02-18 10:49] LABS: Ammonia 53 umol/L (11-32)
[2022-02-18 10:51] LABS: INR 1.3 (0.9-1.1); Prothrombin Time 13.2 sec (9.3-11.0)
[2022-02-18 11:04] LABS: ALT 46 U/L (14-59); AST 49 U/L (15-37); Alkaline Phosphatase 237 U/L (46-116); Anion Gap 7.2 mmol/L (3-11); BUN 35 mg/dL (7-18); Bilirubin, Total 2.7 mg/dL (0.2-1.0); C-Reactive Protein 0.98 mg/dL (0.0-0.3); CO2 23.8 mmol/L (21.0-32.0); CREATININE 1.6 mg/dL (0.55-1.02); Calcium 8.8 mg/dL (8.5-10.1); Chloride 97 mmol/L (98-107); Estimated GFR 33.59 (mL/min/1.73m2); Glucose 86 mg/dL (74-106); Magnesium 1.5 mg/dL (1.8-2.4); NT-proBNP 5336 pg/mL (<300); Potassium 4.7 mmol/L (3.5-5.1); Sodium 128 mmol/L (136-145); Total Protein 6.8 g/dL (6.4-8.2)
== END 2022-02-18 01:39 | disposition home or self-care (01) ==
LOC: LBO 01:38
PROVIDERS: PCP Family Medicine; Visit Provider Surgery
DX: I50.9 Heart failure, unspecified (principal); B19.20 Unspecified viral hepatitis C without hepatic coma; K74.60 Unspecified cirrhosis of liver; I48.91 Unspecified atrial fibrillation; B18.2 Chronic viral hepatitis C; N04.9 Nephrotic syndrome with unspecified morphologic changes; E87.1 Hypo-osmolality and hyponatremia; E87.6 Hypokalemia
CPT/HCPCS: 36415; 80053; 85027; 82140; 83735; 83880; 85610; 86140

== ENCOUNTER → 2022-02-28 01:57 | Outpatient (CLI) | payer MEDICARE, MEDICAID, SELFPAY ==
--- NOTE | 2022-02-28 15:06 | DI.US_ITS ---
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 The left ventricle is mildly dilated. Ejection fraction is 50%. There is very mild global hypokinesis Normal right ventricular size and systolic function The left atrium is moderately dilated. The right atrium is mildly dilated Structurally normal aortic valve without stenosis or regurgitation Thickened mitral leaflets with mild to moderate regurgitation Normal tricuspid valve with mild to moderate regurgitation. Estimated right ventricular systolic pre ssure is 29 mmHg Wall motion Left Ventricle Left ventricle is mildly dilated. Left ventricular systolic function is mildly decreased. There is no rmal left ventricular wall thickness. There is very mild global hypokinesis of the left ventricle. Th ere is no ventricular septal defect visualized. LVEF is 50%. Right Ventricle The right ventricle is normal size. The right ventricular systolic function is normal. The RVSP is 29 .1mmHg. Atria Left atrium is moderately dilated. Right atrium is mildly dilated. The interatrial septum is intact w ith no evidence for an atrial septal defect. Aortic Valve The aortic valve is normal in structure. Aortic valve is trileaflet. There is no aortic valvular sten osis. No aortic regurgitation is present. Mitral Valve Mitral valve leaflets are thickened. No evidence of mitral valve stenosis. Mild to moderate mitral re gurgitation. Tricuspid Valve The tricuspid valve is normal in structure. There is no tricuspid valve stenosis. Mild to moderate tr icuspid regurgitation. Pulmonic Valve The pulmonary valve is normal in structure. There is no pulmonic valvular stenosis. Trace pulmonic re gurgitation. Great Vessels The aortic root is normal in size. The ascending aorta is normal in size. Aortic arch is not well vis ualized. IVC is normal in size and collapses >50% with inspiration. Pericardium There is no pericardial effusion. 2D Dimensions IVSD d PLAX 0.87 cm F: 0.6-1.0 LV Vol A2C d MOD 95.6 mL LVPW d PLAX 0.86 cm F: 0.6 - 1.0 LV Vol A4C d MOD 135.8 mL LVID d PLAX 5.56 cm F: 3.8 - 5.2 LA vol/ BSA A2C s A-L 43.7 mL/m2 LVDs 4.40 cm F: 2.2 - 3.5 LA vol/ BSA A4C s A-L 35.9 mL/m2 Ao Root d 3.18 cm F: 2.7 - 3.3 LA Vol/ BSA Biplane s A-L 41.3 mL/m2 RA Area A4C 19.58 cm2 LA Area A4C s MOD 22.28 cm2 RA Vol/ BSA A4C s A-L 28.8 mL/m2 LA Area A2C s MOD 23.61 cm2 Ao Asc Diam d 3.25 cm F: 2.3 - 3.1 LV EF A4C MOD 45.1 % LV EF Teichholz 41.3 % LV EF A2C MOD 45.8 % LVEF (Aguero's) 45.07 % F: 54 - 74 LV EF Biplane MOD 45.1 % LV Volume 88.79 mL F: 46 - 106 SV 52.31 mL LV Volume Index 47.22 mL/m2 F: 29 - 61 SV Index 27.72 mL/m2 LV Vol Biplane MOD 116.1 mL FS 20.45 % M-Mode TAPSE 1.95 cm (M/F) >1.7 LV Diastology MV E' medial 0.091 (>0.07 m/s) MV E Vmax 1.22 (0.4-1.3 m/s) LV E/e MED 13.35 (<14) MV E' lateral 0.103 (>0.1 m/s) LV E/e LAT 11.90 (<14) MV E/E' medial 13.39 MV E/E' lateral 11.90 Aortic Valve LVOT Area 3.23 cm2 AoV Area Vmax 2.74 cm2 LVOT Vmax 1.04 m/s AoV Area/ BSA (Vmax) 1.45 cm2/m2 LVOT Mean Brian. 0.78 m/s JAI Mean Brian. 2.75 cm2 LVOT Peak Grad 4.3 mmHg JAI Mean Brian. Index 1.46 cm2/m2 LVOT Mean Grad 2.6 mmHg LVOT VTI 0.222 m LVOT Diam s 2.00 cm AoV Vmax 1.22 m/s Velocity Ratio 0.85 AoV Mean Brian. 0.91 m/s AoV Peak Grad 6.0 mmHg LVOT SV 71.69 mL AoV Mean Grad 3.6 mmHg AoV VTI 0.261 m AoV Area VTI 2.75 cm2 AoV Area/ BSA (VTI) 1.46 cm/m2 Mitral Valve MV DT 152 (160-240 msec) MV PHT 44 msec MV Area PHT 4.98 cm2 MV VTI 0.318 m MV Area VTI 2.25 (4.0-6.0 cm2) Pulmonary Valve PV Vmax 0.88 (0.5-1.5 m/s) RVOT Peak Gr. 1.65 mmHg PV Peak Grad 3.1 mmHg RVOT Mean Gr. 0.95 mmHg PV Mean Grad 2.1 mmHg RVOT VTI 0.135 m PV VTI 0.181 m RVOT Vmax 0.64 m/s Tricuspid Valve TR Peak Grad 26.1 mmHg TR Vmax 2.55 m/s RA Pressure 3.00 mmHg RVSP (TR) 29.1 mmHg
== END ==
PROVIDERS: PCP Family Medicine; Visit Provider Surgery
DX: I50.9 Heart failure, unspecified (principal); I40.8 Other acute myocarditis; B94.8 Sequelae of other specified infectious and parasitic diseases
CPT/HCPCS: 93306

== ENCOUNTER 2022-03-05 16:59 | Emergency (ER) | payer MEDICARE, MEDICAID, SELFPAY ==
[2022-03-05 17:03] VITALS: BP 106/54; PULSE 66; RESP 18; TEMP 36.7; O2SAT 98
[2022-03-05 18:06] LABS: Abs Immature Grans 0.02 10^3/uL (0.0-0.06); Absolute Basophil Count 0.05 10^3/uL (0.0-0.2); Absolute Lymphocyte Count 1.24 10^3/uL (1.2-3.4); Absolute Monocyte Count 0.94 10^3/uL (0.1-0.8); Absolute Neutrophil Count 2.98 10^3/uL (1.2-6.7); Basophils % 0.9; Eosinophils % 3.7; HCT 33.8 % (36.0-46.0); HGB 11.2 g/dL (11.2-15.7); Immature Grans % 0.4; Lymphocytes % 22.8; MCH 31.9 pg (27.0-33.0); MCHC 33.1 % (32.0-36.0); MCV 96 fL (80-95); MPV 10.2 fL (8.0-11.0); Monocytes % 17.3; Neutrophils % 54.9; Platelet Count 136 10^3/uL (130-400); RBC 3.51 10^6/uL (3.93-5.22); RDW 16.5 % (11.7-14.6); RDW-SD 58.4 fL; WBC 5.43 10^3/uL (4.4-10.8)
--- NOTE | 2022-03-05 18:21 | W.ED.GENAD ---
Discharge Plan Disposition Patient Disposition: HOME Condition: Stable Discharge Details Clinical Impression: Acute hyperkalemia, Ascites, Adverse effect of spironolactone, History of abdominal paracentesis, Bleeding hemorrhoids Primary Care Provider: Dillon Muller ED Provider: Henny Felix Home Meds and New Rx's Prescriptions: New Proctofoam HC 1-1 % foam 1 applic WA TID-QID PRNQty: 10 0RF Continued nitroglycerin [Nitrostat] 0.4 mg tablet, sublingual 0.4 mg sublingual Q5M PRN Rx Instructions: do not exceed 3 doses per episode lactulose 20 gram/30 mL solution 30 ml PO DAILY PRN Rx Instructions: to achieve 3-4 stools/day 07/28/21 cgc magnesium oxide 400 mg magnesium tablet 400 mg PO BID Qty: 180 3RF acetaminophen 500 mg Tablet 500 mg PO Q6H PRN Xifaxan 550 mg tablet 550 mg PO BID Label Comments: TAKE ONE TABLET BY MOUTH TWICE A DAY furosemide 80 mg tablet 80 mg PO DAILY Label Comments: TAKE ONE TABLET BY MOUTH EVERY DAY metoprolol tartrate 50 mg tablet 50 mg PO TID simethicone [Gas Relief Extra Strength] 125 mg Tablet,Chewable 125 mg PO BID-QID PRN gabapentin 100 mg Tablet 200 mg PO DAILY Held spironolactone 50 mg tablet 200 mg PO DAILY Hold Instructions: Resume on 03/05/22. Rx Instructions: from [facility] hepatology note 01/06/22 potassium chloride 20 mEq tablet,ER particles/crystals 20 meq PO DAILY Hold Instructions: Resume on 03/05/22. Label Comments: TAKE 1 TABLET BY MOUTH DAILY Discharge Instructions Additional Instructions: Stop taking your potassium and the spironolactone Have your potassium rechecked on Monday Follow-up with the surgeon at your appointment on Monday Use hemorrhoidal suppositories daily, I have supplied you with a prescription Talk to your surgeon about hemorrhoid interventions and return should he have new or worsening complaints and Referrals: Dillon Muller DO [Primary Care Provider] - Discharge Data Discharge Date/Time-TO BE ENTERED AT DEPARTURE: 03/05/22 20:26 Medical Decision Making <KLEVER Howard - Last Filed: 03/05/22 20:44> I was consulted to perform therapeutic paracentesis. Patient provided verbal and written consent. Fluid collection was identified with bedside ultrasound guidance. Sterile technique was maintained. Please see procedure note, skin was anesthetized and paracentesis needle and catheter advanced left mid quadrant. 1 L clear yellow fluid drained. The catheter was withdrawn and sterile dressing was applied. Patient noted breathing easier after procedure. Patient is alert and at her baseline She has no clinical evidence of SBP Will perform therapeutic and paracentesis, my attending Dr. Leiva will perform paracentesis, please see his documentation Patient tolerated paracentesis without incident, 1 L was removed there is no need for supplemental albumin Have an appointment scheduled with surgery for Monday Of note, patient's potassium was 5.6 She has an EKG does not show evidence of hyperkalemia she has baseline atrial fibrillation I suspect hyperkalemia is related to patient spironolactone and oral potassium supplementation She is instructed to discontinue this medication and have her potassium rechecked on Monday Her kidney disease is at his baseline and there is no indication for dialysis or emergent intervention for hyperkalemia She is discharged home in the care of her She will temporarily discontinue her spironolactone and potassium In terms of her hemorrhoids, there is an obvious internal bleeding hemorrhoid which was able to be visualized on exam She will use Proctofoam and hemorrhoidal cream She is on lactulose so I will not prescribe any additional laxative She currently threshold to return should she have any worsening complaints She is hemodynamically stable and discharged home in stable condition Return precautions discussed and patient expressed understanding Medical Records Medical records reviewed: Yes I reviewed the patient's medical records. Lab Data Lab results reviewed: Yes I reviewed the patient's lab results. <Mauricio Leiva MD - Last Filed: 03/08/22 16:53> Patient is alert and at her baseline She has no clinical evidence of SBP Will perform therapeutic and paracentesis, my attending Dr. Leiva will perform paracentesis, please see his documentation Patient tolerated paracentesis without incident, 1 L was removed there is no need for supplemental albumin Have an appointment scheduled with surgery for Monday Of note, patient's potassium was 5.6 She has an EKG does not show evidence of hyperkalemia she has baseline atrial fibrillation I suspect hyperkalemia is related to patient spironolactone and oral potassium supplementation She is instructed to discontinue this medication and have her potassium rechecked on Monday Her kidney disease is at his baseline and there is no indication for dialysis or emergent intervention for hyperkalemia She is discharged home in the care of her She will temporarily discontinue her spironolactone and potassium In terms of her hemorrhoids, there is an obvious internal bleeding hemorrhoid which was able to be visualized on exam She will use Proctofoam and hemorrhoidal cream She is on lactulose so I will not prescribe any additional laxative She currently threshold to return should she have any worsening complaints She is hemodynamically stable and discharged home in stable condition Return precautions discussed and patient expressed understanding RS: I was consulted to perform therapeutic paracentesis. Patient provided verbal and written consent. Fluid collection was identified with bedside ultrasound guidance. Sterile technique was maintained. Please see procedure note, skin was anesthetized and paracentesis needle and catheter advanced left mid quadrant. 1 L clear yellow fluid drained. The catheter was withdrawn and sterile dressing was applied. Patient noted breathing easier after procedure. HPI <KLEVER Howard - Last Filed: 03/05/22 20:44> General Date/Time Provider Initiated Documentation: 03/05/22 17:11. HPI Narrative: This complex 56-year-old female with history of psoriasis, CHF, atrial fibrillation hepatic encephalopathy, nephrotic syndrome, chronic kidney disease presents with report of rectal bleeding and abdominal swelling. Patient states that she has had 2 episodes of bright red blood in her stool that he around her rectum this morning. She denies any significant abdominal pain or fever. She denies any chills or fever. Denies any urinary complaints.. She denies any bleeding from additional sources and is not anticoagulated. Denies history of GI bleed in the past. States she is short of breath secondary to abdominal distention. Missed her outpatient paracentesis with surgery this week. Related Data Home Medications Medication Instructions Recorded Confirmed nitroglycerin 0.4 mg sublingual 0.4 mg sublingual Q5M PRN 04/05/21 03/08/22 tablet (Nitrostat) lactulose 20 gram/30 mL oral 30 ml PO DAILY PRN 07/29/21 03/08/22 solution potassium chloride 20 mEq 20 meq PO DAILY 08/23/21 03/08/22 tablet,extended release(part/cryst) acetaminophen 500 mg tablet 500 mg PO Q6H PRN 10/05/21 03/08/22 rifaximin 550 mg tablet (Xifaxan) 550 mg PO BID 11/16/21 03/08/22 furosemide 80 mg tablet 80 mg PO DAILY 12/24/21 03/08/22 metoprolol tartrate 50 mg tablet 50 mg PO TID 12/24/21 03/08/22 simethicone 125 mg chewable tablet 125 mg PO BID-QID PRN 12/24/21 03/05/22 (Gas Relief Extra Strength) spironolactone 50 mg tablet 200 mg PO DAILY 01/06/22 03/08/22 gabapentin 100 mg tablet 200 mg PO DAILY 02/18/22 03/08/22 magnesium oxide 400 mg PO BID #180 tabs 03/01/22 03/08/22 hydrocortisone 1 %-pramoxine 1 % 1 applic WA TID-QID PRN #10 grams 03/05/22 03/08/22 rectal foam (Proctofoam HC) Previous Rx's Medication Instructions Recorded magnesium oxide 400 mg PO BID #180 tabs 03/01/22 hydrocortisone 1 %-pramoxine 1 % 1 applic WA TID-QID PRN #10 grams 03/05/22 rectal foam (Proctofoam HC) Allergies Allergy/AdvReac Type Severity Reaction Status Date / Time amphetamine aspartate Allergy Severe Facial Verified 03/08/22 12:07 [From Adderall] Swelling, Blisters, Tongue Swelling, Rash, amphetamine sulfate Allergy Severe Facial Verified 03/08/22 12:07 [From Adderall] Swelling, Blisters, Tongue Swelling, Rash, dextroamphetamine saccharate Allergy Severe Facial Verified 03/08/22 12:07 [From Adderall] Swelling, Blisters, Tongue Swelling, Rash, dextroamphetamine sulfate Allergy Severe Facial Verified 03/08/22 12:07 [From Adderall] Swelling, Blisters, Tongue Swelling, Rash, Penicillins Allergy Intermediate Hives, Verified 03/08/22 12:07 Rash, Tongue Swelling codeine AdvReac Mild Constipatio Verified 03/08/22 12:07 n General Stated Complaint: Abd Prob JOE: 3 Review of Systems <KLEVER Howrad - Last Filed: 03/05/22 20:44> All systems reviewed & are unremarkable except as noted in HPI and below PFSH <KLEVER Howard - Last Filed: 03/05/22 20:44> All Active Problems Acute hyperkalemia (Acute) Ascites (Acute) Adverse effect of spironolactone (Acute) History of abdominal paracentesis (Acute) Bleeding hemorrhoids (Acute) Other ascites (Acute ~01/2022) 02/09/22 [facility] GI PAF (paroxysmal atrial fibrillation) (Acute) 02/09/22 [facility] Cardiology, ZIO Patch placed Chronic heart failure with preserved ejection fraction (Acute) 02/09/22 [facility] Cardiology Encephalopathy chronic (Acute) Cardiomyopathy (Active 04/22/13) Congestive heart failure (Acute 04/22/13) Pleural effusion (Acute 04/22/13) History of gallstones (Active) Depressive disorder (Active) Anxiety (Active) Adult attention deficit hyperactivity disorder (Active) Constipation (Active) Irritable colon (Active) Smoking history (Active) History of surgery (Active) Uterine ablation approxinmately 2006 Two sections. Chronic hepatitis C (Chronic) Treated and cured, relapsed 02/2021 will treat with harvoni CKD (chronic kidney disease) stage 4, GFR 15-29 ml/min (Acute) Atrial fibrillation with controlled ventricular rate (Acute) Advanced hepatic cirrhosis (Chronic) Hep C & ETOH Nephrotic syndrome (Acute) Hypokalemia (Acute) Prerenal azotemia (Acute) Cirrhosis of liver with ascites (Acute) 11/10/21 [facility] Hypokalemia due to excessive renal loss of potassium (Acute) Hydrothorax (Acute) 03/31/21 [facility] Gastro 02/09/22 [facility] GI Hepatic encephalopathy (Acute) 03/31/21 [facility] Seasonal allergic rhinitis (Acute) 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) (Acute) Per [facility] Gastro note from 05/11/21 Abdominal ascites (Acute) Medical History Anxiety Attention deficit hyperactivity disorder, combined type 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 History of abdominal paracentesis Irritable colon Renal failure syndrome Surgical History section x2 History of ileal conduit History of thoracentesis (~12/28/21) 08/03/20,08/10/20 08/21/20,08/31/20 Hx of tubal ligation S/P abdominal paracentesis (~12/28/21) Family History Mother Hypertensive disorder, systemic arterial Cancer Cervical Father Hypertensive disorder, systemic arterial Maternal Grandfather Diabetes Maternal Grandmother Cancer Ovarian Social History Smoking/Tobacco Use Status: Former Tobacco Use Quit Date: 09/18/18 Smoking risk assessment performed?: Yes Alcohol Intake: former Drug use: Never Substance use type: does not use Adopted: No Caregiver/Support person: No Foster care: No Household members: family Housing: house Number of Children: 4 number of grandchildren: 2 Communication Needs: None Do you need help understanding health information?: Often current occupation: Used to work for [employer] Current gender identity: female What is your relationship status?: How often do you talk on the phone with friends or family?: three or more times per week Panel score (0-1 are the most socially isolated patients): 2 What type of physical activity do you participate in: none Seatbelt use: always Drive intox or ride w/intox drive away driver: No Working smoke detector in home: Yes Fire extinguisher in home: Yes Carbon monox detector in home: Yes Do you feel safe at home: Yes Do you feel safe in your relationship?: Yes Exam <KLEVER Howard - Last Filed: 03/05/22 20:44> Const General: cooperative, comfortable and no acute distress HENMT Head: normal to inspection Eyes Pupils: PERRL Resp Effort & Inspection: normal respiratory effort Auscultation: clear to auscultation bilaterally Cardio Rate: regular rate GI Other: Notable ascites Nontender abdominal exam No erythema Skin General skin exam: no rashes or lesions noted Neuro General: patient alert and patient oriented x3 Extrem General: normal to inspection Psych Appearance: grossly normal Course <KLEVER Howard Last Filed: 03/05/22 20:44> Vital Signs Vital signs: Vital Signs Temperature 36.7 C 03/05/22 17:03 Pulse 66 03/05/22 17:03 Respiratory Rate 18 03/05/22 17:03 Blood Pressure 106/54 L 03/05/22 17:03 Pulse Oximetry 98 03/05/22 17:03 Temperature 36.7 C 03/05/22 17:03 Temperature Source Skin 03/05/22 17:03 Pulse 66 03/05/22 17:03 Respiratory Rate 18 03/05/22 17:03 Respiratory Effort 03/05/22 17:11 Blood Pressure 106/54 L 03/05/22 17:03 Blood Pressure Position Sitting 03/05/22 17:03 Pulse Oximetry 98 03/05/22 17:03 Oxygen Delivery Method Room Air 03/05/22 17:03 Oxygen Flow Rate 0 03/05/22 17:03 Pain Level 10 03/05/22 17:03 <Mauricio Leiva MD - Last Filed: 03/08/22 16:53> Paracentesis Time Out Performed: Yes Local Anesthetic: Lidocaine 1% Amount of anesthesia used (mL): 10 Fluid: clear (yellow, 1000mL) and Sent to Lab for Analysis Post Procedure Exam: awake, alert, normal BP and normal HR Patient Tolerated Procedure: well and no complications Complications: none
[2022-03-05 18:33] LABS: ALT 46 U/L (14-59); AST 56 U/L (15-37); Albumin 2.6 g/dL (3.4-5.0); Alkaline Phosphatase 203 U/L (46-116); Anion Gap 5.9 mmol/L (3-11); BUN 27 mg/dL (7-18); Bilirubin, Total 2.5 mg/dL (0.2-1.0); CO2 26.1 mmol/L (21.0-32.0); CREATININE 1.7 mg/dL (0.55-1.02); Calcium 8.5 mg/dL (8.5-10.1); Chloride 106 mmol/L (98-107); Estimated GFR 31.32 (mL/min/1.73m2); Glucose 92 mg/dL (74-106); Potassium 5.6 mmol/L (3.5-5.1); Sodium 138 mmol/L (136-145); Total Protein 6.2 g/dL (6.4-8.2)
[2022-03-05 18:46] VITALS: BP 128/74; PULSE 67; RESP 20; TEMP 36.4; O2SAT 97
[2022-03-05] MEDS: Lidocaine/Prilocaine Cream 5 GM TUBE (19:00)
[2022-03-05 19:09] LABS: Potassium 5.6 mmol/L (3.5-5.1)
[2022-03-05 19:14] LABS: INR 1.3 (0.9-1.1); Prothrombin Time 12.7 sec (9.3-11.0)
--- NOTE | 2022-03-05 19:15 | RT.EKG_ITS ---
APPROVED REPORT Exam: Resting ECG Reason for Exam: hyperkalemia Patient Location: E HR:70 bpm ECG Measurements Heart Rate 70 AXIS [place] [id number] P [id number] QRSd 91 QRS 96 QT 408 T 5 QTc 441 Conclusion Atrial fibrillation...V-rate 55- 71, irreg A-activity Ventricular premature complex...V complex w/ short R-R interval Low voltage, extremity and precordial leads...extremity<0.5mV, precordial<1.0mV
[2022-03-05 19:53] LABS: Source Peritoneal
[2022-03-05 19:54] LABS: Clarity Cloudy
[2022-03-05 20:05] LABS: Nucleated Cells 125 uL (0)
[2022-03-05 20:24] VITALS: BP 118/68; PULSE 86; TEMP 36.4; O2SAT 99
--- NOTE | 2022-03-05 20:26 | NUR.NOTE ---
Referral faxed to [facility] for f/u 03/07/22 for hyperkalemia.Nursing Note:
[2022-03-05 20:29] LABS: Mononuclear Cells 90 %; Polynuclear Cells 10 %
[2022-03-05 20:30] VITALS: BP 118/68; PULSE 86; RESP 18; TEMP 36.4; O2SAT 99
== END 2022-03-05 20:26 | disposition home or self-care (01) ==
PROVIDERS: Emergency Provider Physician Assistant; PCP Family Medicine
DX: E87.5 Hyperkalemia (principal); R18.8 Other ascites; K64.8 Other hemorrhoids; T50.0X5A Adverse effect of mineralocorticoids and their antagonists, initial encounter
CPT/HCPCS: 36415; 49082; 80053; 93005; 99283; 84132; 85025; 85610; 87070; 87205; 89051; 93010

== ENCOUNTER 2022-03-08 01:04 | Outpatient (CLI) | payer MEDICARE, MEDICAID, SELFPAY ==
[2022-03-08 11:22] LABS: HCT 31.8 % (36.0-46.0); HGB 10.8 g/dL (11.2-15.7); MCH 32.9 pg (27.0-33.0); MCV 97 fL (80-95); MPV 9.8 fL (8.0-11.0); Platelet Count 133 10^3/uL (130-400); RBC 3.28 10^6/uL (3.93-5.22); RDW 16.5 % (11.7-14.6); RDW-SD 58.9 fL; WBC 5.51 10^3/uL (4.4-10.8)
[2022-03-08 11:43] LABS: Ammonia 121 umol/L (11-32)
[2022-03-08 11:44] LABS: INR 1.3 (0.9-1.1); Prothrombin Time 12.8 sec (9.3-11.0)
[2022-03-08 11:54] LABS: ALT 42 U/L (14-59); AST 46 U/L (15-37); Albumin 2.5 g/dL (3.4-5.0); Alkaline Phosphatase 177 U/L (46-116); Anion Gap 5.6 mmol/L (3-11); BUN 28 mg/dL (7-18); Bilirubin, Total 2.3 mg/dL (0.2-1.0); C-Reactive Protein 1.16 mg/dL (0.0-0.3); CO2 26.4 mmol/L (21.0-32.0); CREATININE 1.7 mg/dL (0.55-1.02); Calcium 8.2 mg/dL (8.5-10.1); Chloride 100 mmol/L (98-107); Estimated GFR 31.32 (mL/min/1.73m2); Glucose 87 mg/dL (74-106); Magnesium 1.8 mg/dL (1.8-2.4); NT-proBNP 3522 pg/mL (<300); Sodium 132 mmol/L (136-145); Total Protein 5.9 g/dL (6.4-8.2)
[2022-03-08 12:13] LABS: Potassium 4.3 mmol/L (3.5-5.1)
== END 2022-03-08 01:05 | disposition home or self-care (01) ==
LOC: LBO 01:04
PROVIDERS: PCP Family Medicine; Visit Provider Surgery
DX: I50.9 Heart failure, unspecified (principal); K74.60 Unspecified cirrhosis of liver; I48.91 Unspecified atrial fibrillation; B18.2 Chronic viral hepatitis C; R79.89 Other specified abnormal findings of blood chemistry
CPT/HCPCS: 36415; 80053; 85027; 82140; 83735; 83880; 85610; 86140

== ENCOUNTER 2022-03-08 11:37 | Day surgery (SDC) | payer MEDICARE, MEDICAID, SELFPAY ==
--- NOTE | 2022-03-08 07:45 | DI.RAD_ITS ---
Exam(s) XR CHEST 2V PA LATERAL EXAM: XR CHEST 2V PA LATERAL CLINICAL HISTORY: pre-procedure, PLEURAL EFFUSION, J90 TECHNIQUE: 2D digital imaging was performed. COMPARISON: CR XR CHEST 2V PA LATERAL from 02/18/2022 CR XR PORTABLE CHEST AP from 02/18/2022 FINDINGS: MEDIASTINUM: Normal. HEART: Normal. PULMONARY VASCULATURE: Normal. LUNGS: Left lung clear. PLEURAL SPACE: Stable size of moderate right pleural effusion. Adjacent atelectasis. No left-sided effusion. No pneumothorax. BONE:Scoliosis. IMPRESSION: Stable moderate right pleural effusion.. DATA REPOSITORY: RADIATION DOSE DELIVERED:
[2022-03-08 12:15] VITALS: BP 103/65; PULSE 76; RESP 20; TEMP 36.5; O2SAT 100
[2022-03-08] MEDS: Normal Saline Flush 10 ML SYR IV ×2 (12:25→12:40)
[2022-03-08] MEDS: ALBUMIN HUMAN 25 GM/100 ML BTL IV ×2 (12:40→13:14)
[2022-03-08 13:45] VITALS: BP 116/70; PULSE 72; RESP 20; TEMP 36.4; O2SAT 100
[2022-03-08] MEDS: Sodium Bicarbonate 50 MEQ/50 ML VIAL (16:49)
[2022-03-08] MEDS: Lidocaine 1% Multi-Dose W/EPI 1/100,000 50 ML VIAL (16:49)
[2022-03-08 17:15] VITALS: BP 122/62; PULSE 76; RESP 18; TEMP 36.5; O2SAT 96
--- NOTE | 2022-03-08 17:15 | DI.RAD_ITS ---
Exam(s) XR PORTABLE CHEST AP EXAM: XR PORTABLE CHEST AP CLINICAL HISTORY: post-op thoracentesis TECHNIQUE: 2D digital imaging was performed of the chest. One image was obtained. An AP view was ob tained. COMPARISON: CR XR CHEST 2V PA LATERAL from 03/08/2022 FINDINGS: MEDIASTINUM: Normal. HEART: Normal. PULMONARY VASCULATURE: Normal. LUNGS: Clear. PLEURAL SPACE: There has been an interval decrease in size of the right pleural effusion. The effusi on is now small following thoracentesis. There is no left pleural effusion. There is no pneumothora x. BONE:Within normal limits for the patient's age. OTHER FINDINGS:Normal. IMPRESSION: Interval decrease in size of the right pleural effusion following thoracentesis. The effusion is now small. DATA REPOSITORY: RADIATION DOSE DELIVERED:
--- NOTE | 2022-03-08 17:21 | W.PM.DSUDISC ---
Discharge Plan Disposition Patient Disposition: HOME Condition: Good Discharge Details Attending Provider: Hazel Lindsey Primary Care Provider: Dillon Muller Home Meds and New Rx's Prescriptions: New hydrocortisone 2.5 % cream with perineal applicator 1 applic AR BID-QID PRNQty: 30 6RF Continued nitroglycerin [Nitrostat] 0.4 mg tablet, sublingual 0.4 mg sublingual Q5M PRN Rx Instructions: do not exceed 3 doses per episode lactulose 20 gram/30 mL solution 30 ml PO DAILY PRN Rx Instructions: to achieve 3-4 stools/day 07/28/21 cgc spironolactone 50 mg tablet 200 mg PO DAILY Hold Instructions: Resume on 03/05/22. Rx Instructions: from [facility] [place] hepatology note 01/06/22 magnesium oxide 400 mg magnesium tablet 400 mg PO BID Qty: 180 3RF acetaminophen 500 mg Tablet 500 mg PO Q6H PRN Xifaxan 550 mg tablet 550 mg PO BID Label Comments: TAKE ONE TABLET BY MOUTH TWICE A DAY furosemide 80 mg tablet 80 mg PO DAILY Label Comments: TAKE ONE TABLET BY MOUTH EVERY DAY metoprolol tartrate 50 mg tablet 50 mg PO TID simethicone [Gas Relief Extra Strength] 125 mg Tablet,Chewable 125 mg PO BID-QID PRN gabapentin 100 mg Tablet 200 mg PO DAILY Held potassium chloride 20 mEq tablet,ER particles/crystals 20 meq PO DAILY Hold Instructions: Resume on 03/16/22. hold until we repeat labs on 04/13 Label Comments: TAKE 1 TABLET BY MOUTH DAILY Discontinued Proctofoam HC 1-1 % foam 1 applic AR TID-QID PRNQty: 10 0RF Discharge Instructions Activity:: Activity as Tolerated Remove Dressings/Wound Care:: 24 hours Shower/Bathe:: 24 hours Diet:: high protein
--- NOTE | 2022-03-08 18:17 | DI.VRAD_ITS ---
PROCEDURE INFORMATION: Exam: XR Chest Exam date and time: 03/08/2022 5:11 PM Age: 56 years old Clinical indication: Condition or disease; Other: Post thorocentitsi TECHNIQUE: Imaging protocol: Radiologic exam of the chest. Views: 1 view. Total images: 1 COMPARISON: CR XR CHEST 2V PA LATERAL 03/08/2022 11:28 AM FINDINGS: Lungs: Persistent opacity in the right lower lung may represent atelectasis or consolidation. Pulmonary [place]: Unremarkable contours. Pleural spaces: Moderate decrease in size of a now mild right pleural effusion. No pneumothorax. No left pleural effusion. Heart/Mediastinum: Stable mediastinal contours. Bones/joints: Thoracic dextroscoliosis. Intraperitoneal space: Visualized upper abdomen is unremarkable. IMPRESSION: Decreasing in size right pleural effusion status post thoracentesis. No interval pneumothorax. Dictated and Authenticated by: Victoriano Rivas MD. Ordering:JEFFREY Oliva MD
--- NOTE | 2022-03-10 15:41 | W.PM.OP ---
Date of service: 03/08/22 Time of Service: 18:00 Operative Note Operative Note DATE OF PROCEDURE: 03/08/22 PRE-OP DIAGNOSIS: Cirrhosis PROCEDURE: Paracentesis thoracentesis SURGEON: Hazel Lindsey ANESTHESIA TYPE: Local By Surgeon Refer to Anesthesia Record ESTIMATED BLOOD LOSS: 0 COMPLICATIONS: None Patient was transported to: same day Patient's condition: stable Procedure Description: REPORT OF OPERATION Operative Note Operative Note Pt is here today for thoracentesis for symptoms of shortness of breath.? Chest x-ray was reviewed prior to beginning the procedure.? Informed consent was obtained explaining risks and benefits of the procedure, including but not limited to bleeding, infection, pneumothorax, recurrence, complications of anesthesia, and other unforetold complications. ? PROCEDURE:? The patient is brought to the procedure room and placed in the seated position.? Ultrasound is used to localize the pocket on the right chest.? The area is marked and then prepped and draped in the usual sterile fashion using a ChloraPrep scrub solution.? 10 cc's of 1% Lidocaine is used to anesthetize the T10 interspace. ? The small chai is made with a #11 blade.? The needle and catheter is then inserted over the top of the rib, aspirating as it is inserted.? The needle is then removed.? The catheter is then hooked up to the Vacutainer system and 1800 cc's of straw-colored fluid is evacuated.? The catheter is removed; pressure is held.? Sterile compression dressing is applied. Paracentisis The patient is brought to the procedure room and placed in the supine position.? Placement chosen on top in the right upper quadrant.? A time-out is done.? Ultrasound is used to localize the pocket.? The area is prepped and draped in the usual sterile fashion using a ChloraPrep scrub solution.? 20 cc's of 1% Lidocaine with epinephrine is used for local anesthetization.? The abdomen is punctured and the catheter is inserted.? 1800cc of light yellow fluid is evacuated today.? The catheter is removed.? A single stitch of 3-0 Prolene is placed in the abdomen to help prevent leakage. The old suture removal from the previous tap was removed. She still having leakage from when she was in the ER pressure dressing is applied.? The patient tolerated the procedure well without complication. ? Portable chest x-ray shows no pneumothorax.? Pt is given instructions in wound care, activity, medications, and warning signs: SOB, increasing in pain, chest pain, redness or temperature- if these occur, come to ED.
== END 2022-03-08 17:50 | disposition home or self-care (01) ==
PROVIDERS: PCP Family Medicine; Visit Provider Surgery
PROC: (CPT 32554; principal; 2022-03-08 12:15)
PROC: 0W9G3ZZ Drainage of Peritoneal Cavity, Percutaneous Approach (ICD-10-PCS; CPT 49082; 2022-03-08 12:15)
DX: J90 Pleural effusion, not elsewhere classified (principal); R18.8 Other ascites
CPT/HCPCS: 32554; 49082; 36415; 80053; 85027; 96365; 71045; 71046; 82140; 83735; 83880; 85610; 86140

== ENCOUNTER 2022-03-18 02:58 | Outpatient (CLI) | payer MEDICARE, SELFPAY ==
[2022-03-18 11:17] LABS: HCT 31.4 % (36.0-46.0); HGB 10.6 g/dL (11.2-15.7); MCH 32.8 pg (27.0-33.0); MCHC 33.8 % (32.0-36.0); MCV 97 fL (80-95); MPV 9.6 fL (8.0-11.0); Platelet Count 180 10^3/uL (130-400); RBC 3.23 10^6/uL (3.93-5.22); RDW 17.2 % (11.7-14.6); RDW-SD 61.8 fL; WBC 6.04 10^3/uL (4.4-10.8)
[2022-03-18 11:29] LABS: INR 1.3 (0.9-1.1); Prothrombin Time 12.9 sec (9.3-11.0)
[2022-03-18 11:30] LABS: Ammonia 116 umol/L (11-32)
[2022-03-18 12:18] LABS: ALT 39 U/L (14-59); AST 38 U/L (15-37); Albumin 2.8 g/dL (3.4-5.0); Alkaline Phosphatase 172 U/L (46-116); Anion Gap 4.3 mmol/L (3-11); BUN 35 mg/dL (7-18); Bilirubin, Total 2.5 mg/dL (0.2-1.0); C-Reactive Protein 1.92 mg/dL (0.0-0.3); CO2 25.7 mmol/L (21.0-32.0); CREATININE 1.6 mg/dL (0.55-1.02); Calcium 8.3 mg/dL (8.5-10.1); Chloride 101 mmol/L (98-107); Estimated GFR 33.59 (mL/min/1.73m2); Glucose 98 mg/dL (74-106); Magnesium 1.9 mg/dL (1.8-2.4); NT-proBNP 5018 pg/mL (<300); Potassium 3.7 mmol/L (3.5-5.1); Sodium 131 mmol/L (136-145); Total Protein 6.1 g/dL (6.4-8.2)
== END 2022-03-18 02:59 | disposition home or self-care (01) ==
LOC: LBO 02:58
PROVIDERS: PCP Family Medicine; Visit Provider Surgery
DX: I50.9 Heart failure, unspecified (principal); K74.60 Unspecified cirrhosis of liver; B18.2 Chronic viral hepatitis C; I48.91 Unspecified atrial fibrillation; K76.89 Other specified diseases of liver; K76.7 Hepatorenal syndrome; E87.1 Hypo-osmolality and hyponatremia; E87.6 Hypokalemia; Z79.899 Other long term (current) drug therapy
CPT/HCPCS: 36415; 80053; 85027; 82140; 83735; 83880; 85610; 86140

== ENCOUNTER 2022-03-18 11:16 | Day surgery (SDC) | payer MEDICARE, MEDICAID, SELFPAY ==
--- NOTE | 2022-03-17 15:25 | PDOC.DSDIS_ITS ---
Discharge Plan Disposition Patient Disposition: HOME Condition: Good Discharge Details Reason For Visit: reginald/bibi Attending Provider: Hazel Lindsey Primary Care Provider: Dillon Muller Home Meds and New Rx's Prescriptions: No Action nitroglycerin [Nitrostat] 0.4 mg tablet, sublingual 0.4 mg sublingual Q5M PRN Rx Instructions: do not exceed 3 doses per episode lactulose 20 gram/30 mL solution 30 ml PO DAILY PRN Rx Instructions: to achieve 3-4 stools/day 07/28/21 cgc spironolactone 50 mg tablet 200 mg PO DAILY Hold Instructions: Resume on 03/05/22. Rx Instructions: from [facility] hepatology note 01/06/22 magnesium oxide 400 mg magnesium tablet 400 mg PO BID Qty: 180 3RF potassium chloride 20 mEq tablet,ER particles/crystals 20 meq PO DAILY Hold Instructions: Resume on 03/16/22. hold until we repeat labs on 04/13 Label Comments: TAKE 1 TABLET BY MOUTH DAILY acetaminophen 500 mg Tablet 500 mg PO Q6H PRN Xifaxan 550 mg tablet 550 mg PO BID Label Comments: TAKE ONE TABLET BY MOUTH TWICE A DAY furosemide 80 mg tablet 80 mg PO DAILY Label Comments: TAKE ONE TABLET BY MOUTH EVERY DAY metoprolol tartrate 50 mg tablet 50 mg PO TID simethicone [Gas Relief Extra Strength] 125 mg Tablet,Chewable 125 mg PO BID-QID PRN hydrocortisone 2.5 % cream with perineal applicator 1 applic [place] BID-QID PRNQty: 30 6RF gabapentin 100 mg Tablet 200 mg PO DAILY Discharge Instructions Additional Instructions: repeat 03/29 Activity:: Activity as Tolerated Remove Dressings/Wound Care:: 24 hours Diet:: high protein/low sodium Discharge Orders Discharge Orders: Discharge Order (Routine); Ordered 03/17/22 Ordered By: Hazel Lindsey
--- NOTE | 2022-03-17 15:25 | W.PM.OP ---
Date of service: 03/18/22 Time of Service: 15:00 Operative Note Operative Note DATE OF PROCEDURE: 03/18/22 PRE-OP DIAGNOSIS: cirrhosis POST-OP DIAGNOSIS: same PROCEDURE: para/thora SURGEON: Hazel Lindsey ANESTHESIA TYPE: Local By Surgeon Refer to Anesthesia Record ESTIMATED BLOOD LOSS: 0 COMPLICATIONS: None Patient was transported to: same day Patient's condition: stable Procedure Description: REPORT OF OPERATION Operative Note Operative Note Pt is here today for thoracentesis for symptoms of shortness of breath.? Chest x-ray was reviewed prior to beginning the procedure.? Informed consent was obtained explaining risks and benefits of the procedure, including but not limited to bleeding, infection, pneumothorax, recurrence, complications of anesthesia, and other unforetold complications. ? PROCEDURE:? The patient is brought to the procedure room and placed in the seated position.? Ultrasound is used to localize the pocket on the right chest.? The area is marked and then prepped and draped in the usual sterile fashion using a ChloraPrep scrub solution.? 10 cc's of 1% Lidocaine is used to anesthetize the T10 interspace. ? The small chai is made with a #11 blade.? The needle and catheter is then inserted over the top of the rib, aspirating as it is inserted.? The needle is then removed.? The catheter is then hooked up to the Vacutainer system and 840 cc's of straw-colored fluid is evacuated.? The catheter is removed; pressure is held.? Sterile compression dressing is applied. The patient is brought to the procedure room and placed in the supine position.? Placement chosen on top in the right upper quadrant.? A time-out is done.? Ultrasound is used to localize the pocket.? The area is prepped and draped in the usual sterile fashion using a ChloraPrep scrub solution.? 20 cc's of 1% Lidocaine with epinephrine is used for local anesthetization.? The abdomen is punctured and the catheter is inserted.? 9.1 liters of light yellow fluid is evacuated today.? The catheter is removed.? Pressure dressing is applied.? The patient tolerated the procedure well without complication. ? Portable chest x-ray shows no pneumothorax.? Patient did have albumin post procedurally. Pt is given instructions in wound care, activity, medications, and warning signs: SOB, increasing in pain, chest pain, redness or temperature- if these occur, come to ED.
[2022-03-18 11:50] VITALS: BP 123/82; PULSE 82; RESP 22; TEMP 36.3; O2SAT 99
[2022-03-18] MEDS: Sodium Bicarbonate 50 MEQ/50 ML VIAL (14:44)
[2022-03-18] MEDS: Lidocaine 1% Multi-Dose W/EPI 1/100,000 50 ML VIAL (14:44)
[2022-03-18] MEDS: ALBUMIN HUMAN 25 GM/100 ML BTL IV ×4 (15:00→15:47)
[2022-03-18 15:12] VITALS: BP 111/69; PULSE 80; RESP 20; TEMP 36; O2SAT 98
== END 2022-03-18 16:25 | disposition home or self-care (01) ==
PROVIDERS: PCP Family Medicine; Visit Provider Surgery
PROC: 0W9G3ZZ Drainage of Peritoneal Cavity, Percutaneous Approach (ICD-10-PCS; CPT 49082; principal; 2022-03-18 12:15)
PROC: (CPT 32554; 2022-03-18 12:15)
DX: K74.60 Unspecified cirrhosis of liver (principal); R18.8 Other ascites; J91.8 Pleural effusion in other conditions classified elsewhere; I50.9 Heart failure, unspecified; B18.2 Chronic viral hepatitis C; I48.91 Unspecified atrial fibrillation; K76.89 Other specified diseases of liver; K76.7 Hepatorenal syndrome; E87.1 Hypo-osmolality and hyponatremia; E87.6 Hypokalemia; Z79.899 Other long term (current) drug therapy
CPT/HCPCS: 32554; 49082; 36415; 80053; 85027; 82140; 83735; 83880; 85610; 86140

== ENCOUNTER 2022-03-29 02:48 | Outpatient (CLI) | payer MEDICARE, SELFPAY ==
[2022-03-29 11:20] LABS: Abs Immature Grans 0.02 10^3/uL (0.0-0.06); Absolute Basophil Count 0.07 10^3/uL (0.0-0.2); Absolute Eosinophil Count 0.19 10^3/uL (0.0-0.7); Absolute Lymphocyte Count 1.05 10^3/uL (1.2-3.4); Absolute Neutrophil Count 3.04 10^3/uL (1.2-6.7); Basophils % 1.4; Eosinophils % 3.7; HCT 33.8 % (36.0-46.0); HGB 11.2 g/dL (11.2-15.7); Immature Grans % 0.4; Lymphocytes % 20.7; MCH 32.2 pg (27.0-33.0); MCHC 33.1 % (32.0-36.0); MCV 97 fL (80-95); MPV 9.7 fL (8.0-11.0); Monocytes % 13.8; Platelet Count 135 10^3/uL (130-400); RBC 3.48 10^6/uL (3.93-5.22); RDW 17.4 % (11.7-14.6); RDW-SD 62.6 fL; WBC 5.07 10^3/uL (4.4-10.8)
[2022-03-29 11:29] LABS: Ammonia 137 umol/L (11-32)
[2022-03-29 11:30] LABS: INR 1.4 (0.9-1.1); Prothrombin Time 13.8 sec (9.3-11.0)
[2022-03-29 12:28] LABS: ALT 46 U/L (14-59); AST 45 U/L (15-37); Alkaline Phosphatase 179 U/L (46-116); Anion Gap 8.2 mmol/L (3-11); BUN 31 mg/dL (7-18); Bilirubin, Total 3.1 mg/dL (0.2-1.0); C-Reactive Protein 1.34 mg/dL (0.0-0.3); CO2 24.8 mmol/L (21.0-32.0); CREATININE 1.7 mg/dL (0.55-1.02); Calcium 8.6 mg/dL (8.5-10.1); Chloride 105 mmol/L (98-107); Estimated GFR 31.32 (mL/min/1.73m2); Glucose 93 mg/dL (74-106); NT-proBNP 4069 pg/mL (<300); Potassium 3.5 mmol/L (3.5-5.1); Sodium 138 mmol/L (136-145); Total Protein 6.5 g/dL (6.4-8.2)
== END 2022-03-29 02:49 | disposition home or self-care (01) ==
LOC: LBO 02:49
PROVIDERS: PCP Family Medicine; Visit Provider Surgery
DX: I50.9 Heart failure, unspecified (principal); K74.60 Unspecified cirrhosis of liver; B18.2 Chronic viral hepatitis C; I48.91 Unspecified atrial fibrillation; K76.89 Other specified diseases of liver; K76.7 Hepatorenal syndrome; E87.1 Hypo-osmolality and hyponatremia; E87.6 Hypokalemia; Z79.899 Other long term (current) drug therapy
CPT/HCPCS: 36415; 80053; 82140; 83880; 85025; 85610; 86140

== ENCOUNTER 2022-03-29 11:20 | Day surgery (SDC) | payer MEDICARE, MEDICAID, SELFPAY ==
[2022-03-29 11:34] VITALS: BP 135/66; PULSE 78; RESP 16; TEMP 36.6; O2SAT 96
[2022-03-29] MEDS: Lidocaine 1% Multi-Dose W/EPI 1/100,000 50 ML VIAL (12:42)
[2022-03-29] MEDS: Sodium Bicarbonate 50 MEQ/50 ML VIAL (12:42)
--- NOTE | 2022-03-29 13:39 | PDOC.DSDIS_ITS ---
Discharge Plan Disposition Patient Disposition: HOME Condition: Good Discharge Details Reason For Visit: fluid removal chest/abdomen Attending Provider: Hazel Lindsey Primary Care Provider: Dillon Muller Meds and New Rx's Prescriptions: No Action nitroglycerin [Nitrostat] 0.4 mg tablet, sublingual 0.4 mg sublingual Q5M PRN Rx Instructions: do not exceed 3 doses per episode lactulose 20 gram/30 mL solution 30 ml PO DAILY PRN Rx Instructions: to achieve 3-4 stools/day 07/28/21 cgc spironolactone 50 mg tablet 200 mg PO DAILY Hold Instructions: Resume on 03/05/22. Rx Instructions: [place] [facility] [place] 01/06/22 magnesium oxide 400 mg magnesium tablet 400 mg PO BID Qty: 180 3RF potassium chloride 20 mEq tablet,ER particles/crystals 20 meq PO DAILY Hold Instructions: Resume on 03/16/22. hold until we repeat labs on 04/13 Label Comments: TAKE 1 TABLET BY MOUTH DAILY acetaminophen 500 mg Tablet 500 mg PO Q6H PRN Xifaxan 550 mg tablet 550 mg PO BID Label Comments: TAKE ONE TABLET BY MOUTH TWICE A DAY furosemide 80 mg tablet 80 mg PO DAILY Label Comments: TAKE ONE TABLET BY MOUTH EVERY DAY simethicone [Gas Relief Extra Strength] 125 mg Tablet,Chewable 125 mg PO BID-QID PRN hydrocortisone 2.5 % cream with perineal applicator 1 applic [place] BID-QID PRNQty: 30 6RF gabapentin 100 mg Tablet 200 mg PO DAILY hydrocortisone [Procto-Med HC] 2.5 % cream with perineal applicator 1 applic topical PRN PRN Label Comments: APPLY TWO TO FOUR TIMES PER DAY NEEDED metoprolol tartrate 50 mg tablet 1 tab PO TID Label Comments: TAKE ONE TABLET BY MOUTH EVERY 8 HOURS Discharge Instructions Additional Instructions: F/u 04/12 Activity:: Activity as Tolerated Remove Dressings/Wound Care:: 24 hours Shower/Bathe:: 24 hours Diet:: high protein Discharge Orders Discharge Orders: Discharge Order (Routine); Ordered 03/29/22 Ordered By: Hazel Lindsey
--- NOTE | 2022-03-29 13:45 | DI.RAD_ITS ---
Exam(s) XR PORTABLE CHEST AP EXAM: XR PORTABLE CHEST AP CLINICAL HISTORY: Post thoracentesis TECHNIQUE: 2D digital imaging was performed of the chest. One image was obtained. An AP view was ob tained. COMPARISON: CR,XR XR PORTABLE CHEST AP from 03/08/2022 FINDINGS: MEDIASTINUM: Normal. HEART: Normal. PULMONARY VASCULATURE: Normal. LUNGS: Clear. PLEURAL SPACE: There has been interval increase in size of the right pleural effusion. There is no l eft pleural effusion. No pneumothorax is present. BONE:Within normal limits for the patient's age. OTHER FINDINGS:Normal. IMPRESSION: Interval increase in size of the right pleural effusion since 03/08/2022. DATA REPOSITORY: RADIATION DOSE DELIVERED:
[2022-03-29 13:56] VITALS: BP 107/84; PULSE 89; RESP 18; TEMP 36; O2SAT 96
[2022-03-29] MEDS: Normal Saline Flush 10 ML SYR IV (14:10)
--- NOTE | 2022-03-29 14:10 | ROE_ITS ---
Date of service: 03/29/22 Time of Service: 14:11 Operative Note Operative Note DATE OF PROCEDURE: 03/29/22 PRE-OP DIAGNOSIS: Cirrhosis/SOB PROCEDURE: Pt is here today for thoracentesis for symptoms of shortness of breath.? Chest x-ray was reviewed prior to beginning the procedure.? Informed consent was obtained explaining risks and benefits of the procedure, including but not limited to bleeding, infection, pneumothorax, recurrence, complications of anesthesia, and other unforetold complications. ?? ?PROCEDURE:? The patient is brought to the procedure room and placed in the seated position.? Ultrasound is used to localize the pocket on the right chest.? The area is marked and then prepped and draped in the usual sterile fashion using a ChloraPrep scrub solution.? 6 cc's of 1% Lidocaine is used to anesth etize the T10 interspace. ? The small chai is made with a #11 blade.? The needle and catheter is then inserted over the top of the rib, aspirating as it is inserted.? The needle is then removed.? The catheter is then hooked up to the Vacutainer system and 1000 cc's of straw-colored fluid is evacuated.? The catheter is removed; pressure is held.? Sterile compression dressing is applied. Paracentisis The patient is brought to the procedure room and placed in the supine position.? Placement chosen on top in the right upper quadrant.? A time-out is done.? Ultrasound is used to localize the pocket.? The area is prepped and draped in the usual sterile fashion using a ChloraPrep scrub solution.? 6 cc's of 1% Lidocaine with epinephrine is used for local anesthetization.? The abdomen is punctured and the catheter is inserted.? 7900cc of light yellow fluid is evacuated today.? The catheter is removed.? A single stitch of 3-0 Prolene is placed in the abdomen to help prevent leakage.? The old suture removal from the previous tap was removed.? She still having leakage from when she was in the ER pressure dressing is applied.? The patient tolerated the procedure well without complication. ?Portable chest x-ray shows no pneumothorax.? Pt is given instructions in wound care, activity, medications, and warning signs: SOB, increasing in pain, chest pain, redness or temperature- if these occur, come to ED. WEED CONTROLLER: Manuela Kessler ANESTHESIA TYPE: Local By Surgeon Refer to Anesthesia Record COMPLICATIONS: None
[2022-03-29] MEDS: ALBUMIN HUMAN 25 GM/100 ML BTL IV ×2 (14:13→15:19)
== END 2022-03-29 15:59 | disposition home or self-care (01) ==
PROVIDERS: PCP Family Medicine; Visit Provider Surgery
PROC: (CPT 32554; principal; 2022-03-29 11:45)
PROC: 0W9G3ZZ Drainage of Peritoneal Cavity, Percutaneous Approach (ICD-10-PCS; CPT 49082; 2022-03-29 11:45)
DX: K70.31 Alcoholic cirrhosis of liver with ascites (principal); R06.02 Shortness of breath; J91.8 Pleural effusion in other conditions classified elsewhere
CPT/HCPCS: 32554; 49082; 36415; 80053; 71045; 82140; 83880; 85025; 85610; 86140

== ENCOUNTER 2022-04-06 10:45 | Emergency (ER) | payer MEDICARE, MEDICAID, SELFPAY ==
[2022-04-06 10:54] VITALS: BP 113/77; PULSE 76; RESP 20; TEMP 36.7; O2SAT 100
--- NOTE | 2022-04-06 11:30 | DI.RAD_ITS ---
Exam(s) XR CHEST 2V PA LATERAL EXAM: XR CHEST 2V PA LATERAL CLINICAL HISTORY: shortness of breath TECHNIQUE: 2D digital imaging was performed. COMPARISON: CR,XR XR CHEST 2V PA LATERAL from 01/19/2022 CR XR CHEST 2V PA LATERAL from 02/08/2022 CR XR CHEST 2V PA LATERAL from 02/18/2022 CR XR PORTABLE CHEST AP from 02/18/2022 CR,XR XR PORTABLE CHEST AP from 03/08/2022 CR XR CHEST 2V PA LATERAL from 03/08/2022 CR XR PORTABLE CHEST AP from 03/29/2022 FINDINGS: MEDIASTINUM: Normal. HEART: Normal. PULMONARY VASCULATURE: Normal. LUNGS: Clear. PLEURAL SPACE: Stable moderate size right pleural effusion and adjacent atelectasis. Left lung clear . No pneumothorax. BONE:Scoliosis. IMPRESSION: Stable right pleural effusion. DATA REPOSITORY: RADIATION DOSE DELIVERED:
--- NOTE | 2022-04-06 11:58 | ED.GENADUL_ITS ---
Discharge Plan Disposition Patient Disposition: HOME Condition: Stable Discharge Details Clinical Impression: Abdominal ascites Primary Care Provider: Dillon Muller ED Provider: Mauricio Leiva Home Meds and New Rx's Prescriptions: Continued nitroglycerin [Nitrostat] 0.4 mg tablet, sublingual 0.4 mg sublingual Q5M PRN Rx Instructions: do not exceed 3 doses per episode lactulose 20 gram/30 mL solution 30 ml PO DAILY PRN Rx Instructions: to achieve 3-4 stools/day 07/28/21 cgc spironolactone 50 mg tablet 200 mg PO DAILY Hold Instructions: Resume on 03/05/22. Rx Instructions: [place] [facility] [place]22 magnesium oxide 400 mg magnesium tablet 400 mg PO BID Qty: 180 3RF famotidine 20 mg tablet 20 mg PO DAILY potassium chloride 20 mEq tablet,ER particles/crystals 20 meq PO DAILY Hold Instructions: Resume on 03/16/22. hold until we repeat labs on 04/13 Label Comments: TAKE 1 TABLET BY MOUTH DAILY acetaminophen 500 mg Tablet 500 mg PO Q6H PRN Xifaxan 550 mg tablet 550 mg PO BID Label Comments: TAKE ONE TABLET BY MOUTH TWICE A DAY furosemide 80 mg tablet 80 mg PO DAILY Label Comments: TAKE ONE TABLET BY MOUTH EVERY DAY simethicone [Gas Relief Extra Strength] 125 mg Tablet,Chewable 125 mg PO BID-QID PRN hydrocortisone 2.5 % cream with perineal applicator 1 applic [place] BID-QID PRNQty: 30 6RF gabapentin 100 mg Tablet 200 mg PO DAILY hydrocortisone [Procto-Med HC] 2.5 % cream with perineal applicator 1 applic topical PRN PRN Label Comments: APPLY TWO TO FOUR TIMES PER DAY NEEDED metoprolol tartrate 50 mg tablet 1 tab PO TID Label Comments: TAKE ONE TABLET BY MOUTH EVERY 8 HOURS Discharge Instructions Instructions: Ascites (ED), Paracentesis (DC) Additional Instructions: Please contact your primary care physician to arrange follow-up. Please follow-up with your hr representative at [facility]. Please follow-up with general surgery for repeat paracentesis and examination of retained suture. Return to the ER immediately for any worsening or new concerning symptoms. Referrals: Dillon Muller DO [Primary Care Provider] - Hazel Lindsey DO [OSTEOPATHIC DOCTOR] - Medical Decision Making 1312 -- 56yo female with history of hepatitis C, recurrent ascites requiring paracentesis, here with abdominal fullness and worsening ascites. She is scheduled for paracentesis tomorrow. I called and spoke with on-call general surgeon, Dr. Del Toro, discussed ED presentation course, he will perform paracentesis today. 1413--Paracentesis was performed by Dr. Del Toro without complication. [address] Del Toro recommended albumin be given. Patient providing informed refusal of albumin noting she does not want IV access. Patient is hemodynamically stable with ambulation around the emergency department. Plan for discharge with outpatient follow-up. Usual customary discharge instructions reviewed with the patient. Of asked care management to assist in coordinating care routine and preventative care to hopefully avoid unnecessary ED utilization in the future. HPI General Mode of arrival: ambulatory . Date/Time Provider Initiated Documentation: 04/06/22 10:59 . Limitations to Documentation: no limitations . Information obtained by: patient . HPI Narrative: 56-year-old female with history of abdominal ascites requiring recurrent paracentesis, here with abdominal swelling and associated shortness of breath. Patient notes symptoms are same as prior episodes of acute intra-abdominal fluid. Patient requesting paracentesis. Abdominal discomfort is described as moderate to severe fullness, constant, no modifiers. Patient is scheduled for outpatient paracentesis tomorrow and notes that she feels like she cannot make it to that appointment. Patient also notes left upper quadrant skin nodule that is painful with concern for retained suture from prior paracentesis. Patient has no associated fever. Related Data Home Medications Medication Instructions Recorded Confirmed nitroglycerin 0.4 mg sublingual 0.4 mg sublingual Q5M PRN 04/05/21 04/06/22 tablet (Nitrostat) lactulose 20 gram/30 mL oral 30 ml PO DAILY PRN 07/29/21 04/06/22 solution potassium chloride 20 mEq 20 meq PO DAILY 08/23/21 04/06/22 tablet,extended release(part/cryst) acetaminophen 500 mg tablet 500 mg PO Q6H PRN 10/05/21 04/06/22 rifaximin 550 mg tablet (Xifaxan) 550 mg PO BID 11/16/21 04/06/22 furosemide 80 mg tablet 80 mg PO DAILY 12/24/21 04/06/22 simethicone 125 mg chewable tablet 125 mg PO BID-QID PRN 12/24/21 04/06/22 (Gas Relief Extra Strength) spironolactone 50 mg tablet 200 mg PO DAILY 01/06/22 04/06/22 gabapentin 100 mg tablet 200 mg PO DAILY 02/18/22 04/06/22 magnesium oxide 400 mg PO BID #180 tabs 03/01/22 04/06/22 hydrocortisone 2.5 % topical cream 1 applic [place] BID-QID PRN #30 grams 03/08/22 04/06/22 with perineal applicator hydrocortisone 2.5 % topical cream 1 applic topical PRN PRN 03/29/22 04/06/22 with perineal applicator (Procto-Med HC) metoprolol tartrate 50 mg tablet 1 tab PO TID 03/29/22 04/06/22 famotidine 20 mg tablet 20 mg PO DAILY 03/31/22 04/06/22 Previous Rx's Medication Instructions Recorded magnesium oxide 400 mg PO BID #180 tabs 03/01/22 hydrocortisone 2.5 % topical cream 1 applic [place] BID-QID PRN #30 grams 03/08/22 with perineal applicator Allergies Allergy/AdvReac Type Severity Reaction Status Date / Time amphetamine aspartate Allergy Severe Facial Verified 04/06/22 10:58 [From Adderall] Swelling, Blisters, Tongue Swelling, Rash, amphetamine sulfate Allergy Severe Facial Verified 04/06/22 10:58 [From Adderall] Swelling, Blisters, Tongue Swelling, Rash, dextroamphetamine saccharate Allergy Severe Facial Verified 04/06/22 10:58 [From Adderall] Swelling, Blisters, Tongue Swelling, Rash, dextroamphetamine sulfate Allergy Severe Facial Verified 04/06/22 10:58 [From Adderall] Swelling, Blisters, Tongue Swelling, Rash, Penicillins Allergy Intermediate Hives, Verified 04/06/22 10:58 Rash, Tongue Swelling codeine AdvReac Mild Constipatio Verified 04/06/22 10:58 n General Stated Complaint: Abd Prob JOE: 3 Review of Systems All systems reviewed & are unremarkable except as noted in HPI and below Constitutional Constitutional: Denies fever(s) Cardiovascular Cardiovascular: Reports dyspnea Respiratory Respiratory: Reports dyspnea Gastrointestinal Gastrointestinal: Reports as per HPI PFSH All Active Problems Abdominal ascites (Acute) Hypertension (Chronic ~02/2022) [place]/22 [facility] [place] Other ascites (Acute ~01/2022) 02/09/22 [facility] [place] PAF (paroxysmal atrial fibrillation) (Acute) 02/09/22 [facility] [place], ZIO Patch placed Chronic heart failure with preserved ejection fraction (Acute) 02/09/22 [facility] [place] Encephalopathy chronic (Acute) Cardiomyopathy (Active 04/22/13) Congestive heart failure (Acute 04/22/13) Pleural effusion (Acute 04/22/13) History of gallstones (Active) Depressive disorder (Active) Anxiety (Active) Adult attention deficit hyperactivity disorder (Active) Constipation (Active) Irritable colon (Active) Smoking history (Active) History of surgery (Active) Uterine ablation approxinmately 2006 Two sections. Chronic hepatitis C (Chronic) Treated and cured, relapsed 02/2021 will treat with harvoni CKD (chronic kidney disease) stage 4, GFR 15-29 ml/min (Acute) Atrial fibrillation with controlled ventricular rate (Acute) Advanced hepatic cirrhosis (Chronic) Hep C & ETOH Nephrotic syndrome (Acute) Hypokalemia (Acute) Prerenal azotemia (Acute) Cirrhosis of liver with ascites (Acute) 11/10/21 [facility] Hypokalemia due to excessive renal loss of potassium (Acute) Hydrothorax (Acute) 03/31/21 [facility] [place] [place]/22 [facility] [place] Hepatic encephalopathy (Acute) 03/31/21 [facility] [place] [facility] Seasonal allergic rhinitis (Acute) 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) (Acute) Per [facility] [place] [place] Abdominal ascites (Acute) Medical History Anxiety Attention deficit hyperactivity disorder, combined type 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 History of abdominal paracentesis Irritable colon Renal failure syndrome SVT (supraventricular tachycardia) Surgical History section x2 History of ileal conduit History of thoracentesis (~12/28/21) 08/03/20,08/10/20 08/21/20,08/31/20 Hx of tubal ligation S/P abdominal paracentesis (~12/28/21) Family History Mother Hypertensive disorder, systemic arterial Cancer Cervical Father Hypertensive disorder, systemic arterial Maternal Grandfather Diabetes Maternal Grandmother Cancer Ovarian Social History Smoking/Tobacco Use Status: Former Tobacco Use Quit Date: 09/18/18 Smoking risk assessment performed?: Yes Alcohol Intake: former Drug use: Never Substance use type: does not use Adopted: No Caregiver/Support person: No Foster care: No Household members: family Housing: house Number of Children: 4 number of grandchildren: 2 Communication Needs: None Do you need help understanding health information?: Often current occupation: Used to work for [employer] Current gender identity: female What is your relationship status?: How often do you talk on the phone with friends or family?: three or more times per week Panel score (0-1 are the most socially isolated patients): 2 What type of physical activity do you participate in: none Seatbelt use: always Drive intox or ride w/intox transport driver: No Working smoke detector in home: Yes Fire extinguisher in home: Yes Carbon monox detector in home: Yes Do you feel safe at home: Yes Do you feel safe in your relationship?: Yes Exam Const General: cooperative and no acute distress HENMT Mouth: moist mucous membranes Eyes Sclera: scleral abnormality bilaterally (icterus) Neck Neck: trachea midline and supple Resp Auscultation: clear to auscultation bilaterally, no rales, no rhonchi and no wheezes Cardio Rate: regular rate and not tachycardic Rhythm: regular rhythm GI Inspection: distended Palpation: soft, not firm, no guarding, no masses, not rigid and nontender Auscultation: normal bowel sounds Skin Other: luq cutaneous nodule with no erythema Neuro General: patient alert, patient awake, patient oriented x3 and tone normal Extrem General: no edema Psych Appearance: grossly normal Mental Status: mental status grossly normal Course Vital Signs Vital signs: Vital Signs Temperature 36.7 C 04/06/22 10:54 Pulse 76 04/06/22 10:54 Respiratory Rate 20 04/06/22 10:54 Blood Pressure 113/77 04/06/22 10:54 Pulse Oximetry 100 04/06/22 10:54 Temperature 36.7 C 04/06/22 10:54 Pulse 76 04/06/22 10:54 Respiratory Rate 20 04/06/22 10:54 Respiratory Effort 04/06/22 10:57 Blood Pressure 113/77 04/06/22 10:54 Blood Pressure Position Sitting 04/06/22 10:54 Pulse Oximetry 100 04/06/22 10:54 Oxygen Delivery Method Room Air 04/06/22 10:54 Oxygen Flow Rate 0 04/06/22 10:54 Pain Level 8 04/06/22 10:54
[2022-04-06 14:03] VITALS: BP 107/66; PULSE 81; PULSE 99; RESP 13; RESP 14; TEMP 36.4; O2SAT 100; O2SAT 99
--- NOTE | 2022-04-07 22:30 | W.SURGCON ---
Date of service: 04/06/22 Time of Service: 12:15 Assessment and Plan Assessment and plan (1) Tense ascites: Status: Acute Assessment and plan: Therapeutic paracentesis in the emergency department History of Present Illness History of Present Illness Chief Complaint: abdominal pain Narrative: Erin is a 56-year-old woman with decompensated alcoholic cirrhosis and ascites. She is well-known to our office, and has required multiple episodes of thoracentesis and paracentesis over the past year or so. In fact, she was scheduled for those procedures tomorrow. However, she presented to the emergency department today, complaining of increasing abdominal pain and fatigue. She feels like she cannot wait until tomorrow to undergo drainage. Review of Systems Constitutional Constitutional: Reports fatigue, Reports lethargy and Reports malaise Cardiovascular Cardiovascular: Denies chest pain and Reports dyspnea Respiratory Respiratory: Denies chest congestion, Denies cough and Reports dyspnea Gastrointestinal Gastrointestinal: Reports abdominal pain, Denies melena, Denies bloating, Reports cramping, Reports nausea and Denies vomiting Neurologic Neurologic: Reports abnormal speech (This seems consistent with encephalitis) and Reports confusion Psychiatric Psychiatric: Reports confusion and Reports difficulty concentrating Endocrine Endocrine: Reports fatigue and Reports heat intolerance Hematologic/Lymphatic Hematologic/Lymphatic: Reports easy bleeding and Reports easy bruising PFSH All Active Problems (Updated 04/07/22 @ 22:54 by Wing Del Toro MD) Tense ascites (Acute) Abdominal ascites (Acute) Hypertension (Chronic ~02/2022) 03/17/22 [facility] [place] Card[facility] Other ascites (Acute ~01/2022) 02/09/22 [facility] [place] [place] GI PAF (paroxysmal atrial fibrillation) (Acute) 02/09/22 [facility] [place] [place] Cardiology, ZIO Patch placed Chronic heart failure with preserved ejection fraction (Acute) 02/09/22 [facility] [place] Cardiology Encephalopathy chronic (Acute) Cardiomyopathy (Active 04/22/13) Congestive heart failure (Acute 04/22/13) Pleural effusion (Acute 04/22/13) History of gallstones (Active) Depressive disorder (Active) Anxiety (Active) Adult attention deficit hyperactivity disorder (Active) Constipation (Active) Irritable colon (Active) Smoking history (Active) History of surgery (Active) Uterine ablation approxinmately 2006 Two sections. Chronic hepatitis C (Chronic) Treated and cured, relapsed 02/2021 will treat with harvoni CKD (chronic kidney disease) stage 4, GFR 15-29 ml/min (Acute) Atrial fibrillation with controlled ventricular rate (Acute) Advanced hepatic cirrhosis (Chronic) Hep C & ETOH Nephrotic syndrome (Acute) Hypokalemia (Acute) Prerenal azotemia (Acute) Cirrhosis of liver with ascites (Acute) [facility] [place] [place] Gastro Hypokalemia due to excessive renal loss of potassium (Acute) Hydrothorax (Acute) 03/31/21 [facility] [place] [place] Gastro 02/09/22 [facility] [place] GI Hepatic encephalopathy (Acute) 03[facility]31[facility] [place] [place] Gastro Seasonal allergic rhinitis (Acute) 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) (Acute) Per 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 History of abdominal paracentesis Irritable colon Renal failure syndrome SVT (supraventricular tachycardia) Surgical History section x2 History of ileal conduit History of thoracentesis (~12/28/21) 08/03/20,08/10/20 08/21/20,08/31/20 Hx of tubal ligation S/P abdominal paracentesis (~12/28/21) Family History Mother Hypertensive disorder, systemic arterial Cancer Cervical Father Hypertensive disorder, systemic arterial Maternal Grandfather Diabetes Maternal Grandmother Cancer Ovarian Social History Smoking/Tobacco Use Status: Former Tobacco Use Quit Date: 09/18/18 Smoking risk assessment performed?: Yes Alcohol Intake: former Drug use: Never Substance use type: does not use Adopted: No Caregiver/Support person: No Foster care: No Household members: family Housing: house Number of Children: 4 number of grandchildren: 2 Communication Needs: None Do you need help understanding health information?: Often current occupation: Used to work for [email or web address] [place] Current gender identity: female What is your relationship status?: How often do you talk on the phone with friends or family?: three or more times per week Panel score (0-1 are the most socially isolated patients): 2 What type of physical activity do you participate in: none Seatbelt use: always Drive intox or ride w/intox auto crane driver: No Working smoke detector in home: Yes Fire extinguisher in home: Yes Carbon monox detector in home: Yes Do you feel safe at home: Yes Do you feel safe in your relationship?: Yes Exam Const General: cooperative, acute distress, anxious and ill appearing Nutritional Appearance: malnourished Orientation: awake and confused HENMA Head: normal to inspection Ears: hearing grossly normal bilaterally Mouth: moist mucous membranes Eyes Sclera: scleral abnormality bilaterally other (Mild scleral icterus) Pupils: PERRL Neck Neck: normal visual inspection and no lymphadenopathy Lymphatic: no lymphadenopathy noted Resp Effort & Inspection: decreased respiratory effort (Difficulty with deep inspiration) and labored Auscultation: clear to auscultation bilaterally and diminished lung sounds (Diminished at the bases bilaterally) Cardio Jugular venous pressure: JVD Rate: regular rate Rhythm: regular rhythm Heart Sounds: S1 normal and S2 normal GI Inspection: distended Palpation: firm, no guarding, tender and ascites Percussion: dullness to percussion and fluid wave Auscultation: normal bowel sounds Skin General skin exam: jaundice (Mild) Lesions: no lesions Neuro General: patient awake and patient confused Speech: other (Speech is a little slow) Extrem General: pedal edema Results Last Vital Signs Temp 97.5 F L 04/06/22 14:03 Pulse 81 04/06/22 14:03 Resp 13 04/06/22 14:03 BP 107/66 04/06/22 14:03 Pulse Ox 100 04/06/22 14:03 Procedures Paracentesis Time out performed: Yes Indication: Ascites Procedure: therapeutic paracentesis Location: LLQ Local anesthetic used: lidocaine 1% Amount of anesthesia used (ml): 5 Bedside ultrasound used: yes, real-time guidance Preparation: sterile prep and drape Amount of fluid obtained (ml): 6,500 Fluid: clear (Straw-colored) Size of needle used: 15 Post procedure exam: awake, alert, normal BP, normal HR and normal SpO2 Patient tolerated procedure: well Complications: none
== END 2022-04-06 14:14 | disposition home or self-care (01) ==
PROVIDERS: Emergency Provider Student in an Organized Health Care Education/Training Program; PCP Family Medicine
DX: R18.8 Other ascites (principal); Z87.891 Personal history of nicotine dependence; Z86.19 Personal history of other infectious and parasitic diseases
CPT/HCPCS: 49082; 87635; 96365; 99283; 99284; 71046

== ENCOUNTER 2022-04-14 02:40 | Day surgery (SDC) | payer MEDICARE, MEDICAID, SELFPAY ==
--- NOTE | 2022-04-14 11:09 | DI.RAD_ITS ---
Exam(s) XR CHEST 2V PA LATERAL EXAM: XR CHEST 2V PA LATERAL CLINICAL HISTORY: pre surg, Z01.818, PREOP CLEARANCE TECHNIQUE: 2D digital imaging was performed of the chest. Two images were obtained. PA and lateral views were obtained. COMPARISON: CR XR CHEST 2V PA LATERAL from 04/06/2022 FINDINGS: MEDIASTINUM: Normal. HEART: Normal. PULMONARY VASCULATURE: Normal. LUNGS: Clear. PLEURAL SPACE: There is a stable moderate right pleural effusion. No left pleural effusion. No pneu mothorax. BONE:Within normal limits for the patient's age. Stable right convex curvature of the thoracic spine . OTHER FINDINGS:Normal. IMPRESSION: Stable moderate right pleural effusion. DATA REPOSITORY: RADIATION DOSE DELIVERED:
[2022-04-14 11:32] VITALS: BP 134/75; PULSE 69; RESP 24; TEMP 36.5; O2SAT 98
[2022-04-14] MEDS: Normal Saline 1,000 ML 30 ML IV (11:55)
--- NOTE | 2022-04-14 14:15 | PDOC.DSDIS_ITS ---
Discharge Plan Disposition Patient Disposition: HOME Condition: Good Discharge Details Reason For Visit: to dsu after Attending Provider: Wing Del Toro Primary Care Provider: Dillon Muller Home Meds and New Rx's Prescriptions: Continued nitroglycerin [Nitrostat] 0.4 mg tablet, sublingual 0.4 mg sublingual Q5M PRN Rx Instructions: do not exceed 3 doses per episode lactulose 20 gram/30 mL solution 30 ml PO DAILY PRN Rx Instructions: to achieve 3-4 stools/day 07/28/21 cgc spironolactone 50 mg tablet 200 mg PO DAILY Hold Instructions: Resume on 03/05/22. Rx Instructions: [place] [facility] [place]/22 magnesium oxide 400 mg magnesium tablet 400 mg PO BID Qty: 180 3RF famotidine 20 mg tablet 20 mg PO DAILY potassium chloride 20 mEq tablet,ER particles/crystals 20 meq PO DAILY Hold Instructions: Resume on 03/16/22. hold until we repeat labs on 04/13 Label Comments: TAKE 1 TABLET BY MOUTH DAILY acetaminophen 500 mg Tablet 500 mg PO Q6H PRN Xifaxan 550 mg tablet 550 mg PO BID Label Comments: TAKE ONE TABLET BY MOUTH TWICE A DAY furosemide 80 mg tablet 80 mg PO DAILY Label Comments: TAKE ONE TABLET BY MOUTH EVERY DAY simethicone [Gas Relief Extra Strength] 125 mg Tablet,Chewable 125 mg PO BID-QID PRN gabapentin 100 mg Tablet 200 mg PO DAILY hydrocortisone [Procto-Med HC] 2.5 % cream with perineal applicator 1 applic topical PRN PRN Label Comments: APPLY TWO TO FOUR TIMES PER DAY NEEDED metoprolol tartrate 50 mg tablet 1 tab PO TID Label Comments: TAKE ONE TABLET BY MOUTH EVERY 8 HOURS Discharge Instructions Activity:: Activity as Tolerated Remove Dressings/Wound Care:: 24 hours Shower/Bathe:: 24 hours Diet:: As Tolerated Discharge Orders Discharge Orders: Discharge Order (Routine); Ordered 04/14/22 Ordered By: Wing Del Toro DS: Diagnosis Discharge Diagnosis (1) Tense ascites: Status: Acute Asessment and Plan: 6.5 liters of ascites drained
[2022-04-14] MEDS: ALBUMIN HUMAN 25 GM/100 ML BTL IV ×2 (14:18→14:46)
--- NOTE | 2022-04-14 14:18 | ROE_ITS ---
Date of service: 04/14/22 Time of Service: 14:18 Operative Note Operative Note DATE OF PROCEDURE: 04/14/22 PRE-OP DIAGNOSIS: tense ascites POST-OP DIAGNOSIS: same PROCEDURE: Therapeutic paracentesis SURGEON: Wing Del Toro ANESTHESIA TYPE: Local By Surgeon Refer to Anesthesia Record ESTIMATED BLOOD LOSS: 5 PATHOLOGY: none sent COMPLICATIONS: None Patient was transported to: same day Patient's condition: stable Indications: Tense ascites Findings: 6.5 L of straw-colored ascitic fluid Procedure Description: I started by performing a limited ultrasound of the abdomen to identify appropriate site for paracentesis. Next, I selected the left lower quadrant as the ideal site for paracentesis. I then prepped and draped the abdomen. Next, using ultrasound guidance, I anesthetized the skin with 1% lidocaine with epinephrine. I used the ultrasound to guide the needle down to the peritoneal level which was also anesthetized. I then made a small incision in the skin with a 11 blade scalpel. Next, I advanced the 5 [place] paracentesis needle and catheter through the incision and into the peritoneal cavity under the direct vision of the ultrasound. I aspirated straw-colored appearing ascites. No specimens were obtained. Next, I gently advance the catheter and remove the needle. I affixed drainage tubing, and began draining the ascites with the assistance of Vacutainer's. Initial drainage was quite poor with suboptimal flow. I attempted to adjust the catheter, but I was unable to maintain vacuum drainage on the ascites. Therefore, I removed that catheter. Then, I used ultrasound to assess the left lower quadrant. There remained a significant amount of ascites here. It was clear that there was no involvement of any bowel or other concerning findings. Therefore, I reprepped and draped the abdomen and, again, with the assistance of the ultrasound, I directly aspirated the peritoneal fluid. Again, I remove the needle and left the catheter in place. I have fixed new suction tubing and began draining. The ascites flow was brisk and vigorous. I drained 6.5 L of ascites. As the flow decreased, I assisted the patient to the left lateral decubitus position to improve drainage. Once the ascites stopped flowing, I removed the catheter and used [id number] stitches and Band-Aids to dress the wounds.
[2022-04-14 14:22] VITALS: BP 104/77; PULSE 65; RESP 20; TEMP 36.2; O2SAT 96
[2022-04-14 15:25] VITALS: BP 115/82; PULSE 79; RESP 20; TEMP 36.4; O2SAT 95
== END 2022-04-14 15:32 | disposition home or self-care (01) ==
PROVIDERS: PCP Family Medicine; Visit Provider Surgery
PROC: 0W9G3ZZ Drainage of Peritoneal Cavity, Percutaneous Approach (ICD-10-PCS; CPT 49082; 2022-04-14 12:30)
DX: R18.8 Other ascites (principal)
CPT/HCPCS: 49082; 36415; 80053; 85027; 96365; 96366; 71046; 82140; 83735; 83880; 85610; 86140

== ENCOUNTER 2022-04-14 03:01 | Outpatient (CLI) | payer MEDICARE, SELFPAY ==
[2022-04-14 11:04] LABS: HCT 31.8 % (36.0-46.0); HGB 10.5 g/dL (11.2-15.7); MCV 97 fL (80-95); MPV 9.5 fL (8.0-11.0); Platelet Count 146 10^3/uL (130-400); RBC 3.28 10^6/uL (3.93-5.22); RDW 16.6 % (11.7-14.6); RDW-SD 58.9 fL; WBC 5.01 10^3/uL (4.4-10.8)
[2022-04-14 11:13] LABS: Ammonia 102 umol/L (11-32)
[2022-04-14 11:15] LABS: INR 1.4 (0.9-1.1); Prothrombin Time 13.6 sec (9.3-11.0)
[2022-04-14 11:24] LABS: ALT 45 U/L (14-59); AST 45 U/L (15-37); Albumin 2.8 g/dL (3.4-5.0); Alkaline Phosphatase 170 U/L (46-116); Anion Gap 4.9 mmol/L (3-11); BUN 32 mg/dL (7-18); Bilirubin, Total 2.7 mg/dL (0.2-1.0); C-Reactive Protein 0.94 mg/dL (0.0-0.3); CO2 28.1 mmol/L (21.0-32.0); CREATININE 1.8 mg/dL (0.55-1.02); Calcium 8.6 mg/dL (8.5-10.1); Chloride 105 mmol/L (98-107); Estimated GFR 29.32 (mL/min/1.73m2); Glucose 125 mg/dL (74-106); Magnesium 1.8 mg/dL (1.8-2.4); NT-proBNP 3210 pg/mL (<300); Potassium 3.9 mmol/L (3.5-5.1); Sodium 138 mmol/L (136-145)
== END 2022-04-14 03:02 | disposition home or self-care (01) ==
PROVIDERS: PCP Family Medicine; Visit Provider Surgery
DX: I50.9 Heart failure, unspecified (principal); K74.60 Unspecified cirrhosis of liver; B18.2 Chronic viral hepatitis C; I48.91 Unspecified atrial fibrillation; K76.89 Other specified diseases of liver; K76.7 Hepatorenal syndrome; E87.1 Hypo-osmolality and hyponatremia; E87.6 Hypokalemia; Z79.899 Other long term (current) drug therapy
CPT/HCPCS: 36415; 80053; 85027; 82140; 83735; 83880; 85610; 86140

== ENCOUNTER 2022-04-19 14:54 | Day surgery (SDC) | payer MEDICARE, MEDICAID, SELFPAY ==
--- NOTE | 2022-04-18 22:30 | W.PM.DSUDISC ---
Discharge Plan Disposition Patient Disposition: HOME Condition: Good Discharge Details Reason For Visit: fluid removal chest and abdomen Attending Provider: Hazel Lindsey Primary Care Provider: Dillon Muller Meds and New Rx's Prescriptions: No Action nitroglycerin [Nitrostat] 0.4 mg tablet, sublingual 0.4 mg sublingual Q5M PRN Rx Instructions: do not exceed 3 doses per episode lactulose 20 gram/30 mL solution 30 ml PO DAILY PRN Rx Instructions: to achieve 3-4 stools/day 07/28/21 cgc spironolactone 50 mg tablet 200 mg PO DAILY Hold Instructions: Resume on 03/05/22. Rx Instructions: [place] [facility] [place]/06/22 magnesium oxide 400 mg magnesium tablet 400 mg PO BID Qty: 180 3RF famotidine 20 mg tablet 20 mg PO DAILY Label Comments: pt. states doesnt take potassium chloride 20 mEq tablet,ER particles/crystals 20 meq PO DAILY Hold Instructions: Resume on 03/05/22. Label Comments: TAKE 1 TABLET BY MOUTH DAILY. 04/19/22 pt. states she no longer takes acetaminophen 500 mg Tablet 500 mg PO Q6H PRN Xifaxan 550 mg tablet 550 mg PO BID Label Comments: TAKE ONE TABLET BY MOUTH TWICE A DAY. Pt. states she doesnt take furosemide 80 mg tablet 80 mg PO DAILY Label Comments: TAKE ONE TABLET BY MOUTH EVERY DAY simethicone [Gas Relief Extra Strength] 125 mg Tablet,Chewable 125 mg PO BID-QID PRN gabapentin 100 mg Tablet 200 mg PO DAILY hydrocortisone [Procto-Med HC] 2.5 % cream with perineal applicator 1 applic topical PRN PRN Label Comments: APPLY TWO TO FOUR TIMES PER DAY NEEDED metoprolol tartrate 50 mg tablet 1 tab PO TID Label Comments: TAKE ONE TABLET BY MOUTH EVERY 8 HOURS Discharge Instructions Additional Instructions: -low fat diet -F/u in office 04/28. Activity:: Activity as Tolerated Remove Dressings/Wound Care:: 24 hours Shower/Bathe:: 24 hours Diet:: high protein Discharge Orders Discharge Orders: Discharge Order (Routine); Ordered 04/18/22 Ordered By: Hazel Lindsey Discharge Data Discharge Date/Time-TO BE ENTERED AT DEPARTURE: 04/19/22 17:57 Discharge Comment: Pt d/c'd to self. DS: Diagnosis Discharge Diagnosis (1) Other ascites: Status: Acute
--- NOTE | 2022-04-19 | DI.RAD_ITS ---
Exam(s) XR PORTABLE CHEST AP EXAM: XR PORTABLE CHEST AP CLINICAL HISTORY: s/p thoro TECHNIQUE: 2D digital imaging was performed. COMPARISON: CR XR CHEST 2V PA LATERAL from 03/08/2022 CR XR PORTABLE CHEST AP from 03/29/2022 CR XR CHEST 2V PA LATERAL from 04/14/2022 FINDINGS: LUNGS: Stable size right pleural effusion and adjacent atelectasis. No pneumothorax. HEART: Normal. AORTA: Normal. BONES: Scoliosis. Soft tissues: Unremarkable. IMPRESSION: Stable right pleural effusion. DATA REPOSITORY: RADIATION DOSE DELIVERED:
[2022-04-19 15:23] VITALS: BP 108/90; PULSE 73; RESP 20; TEMP 36.7; O2SAT 99
[2022-04-19 15:55] LABS: Abs Immature Grans 0.03 10^3/uL (0.0-0.06); Absolute Basophil Count 0.07 10^3/uL (0.0-0.2); Absolute Eosinophil Count 0.17 10^3/uL (0.0-0.7); Absolute Lymphocyte Count 1.28 10^3/uL (1.2-3.4); Absolute Monocyte Count 0.86 10^3/uL (0.1-0.8); Absolute Neutrophil Count 3.16 10^3/uL (1.2-6.7); Basophils % 1.3; Eosinophils % 3.1; HCT 31.2 % (36.0-46.0); HGB 10.6 g/dL (11.2-15.7); Immature Grans % 0.5; MCH 32.3 pg (27.0-33.0); MCV 95 fL (80-95); MPV 9.6 fL (8.0-11.0); Monocytes % 15.4; Neutrophils % 56.7; Platelet Count 155 10^3/uL (130-400); RBC 3.28 10^6/uL (3.93-5.22); RDW 16.6 % (11.7-14.6); WBC 5.57 10^3/uL (4.4-10.8)
[2022-04-19 16:07] LABS: INR 1.4 (0.9-1.1); Prothrombin Time 13.4 sec (9.3-11.0)
[2022-04-19 16:19] LABS: Ammonia 111 umol/L (11-32)
[2022-04-19] MEDS: Lidocaine 1% Multi-Dose W/EPI 1/100,000 50 ML VIAL (16:25)
[2022-04-19] MEDS: Sodium Bicarbonate 50 MEQ/50 ML VIAL (16:25)
[2022-04-19 16:34] LABS: ALT 43 U/L (14-59); AST 40 U/L (15-37); Albumin 2.9 g/dL (3.4-5.0); Alkaline Phosphatase 196 U/L (46-116); BUN 38 mg/dL (7-18); Bilirubin, Total 2.5 mg/dL (0.2-1.0); C-Reactive Protein 1.07 mg/dL (0.0-0.3); Calcium 8.7 mg/dL (8.5-10.1); Chloride 101 mmol/L (98-107); Estimated GFR 25.96 (mL/min/1.73m2); Glucose 105 mg/dL (74-106); NT-proBNP 2067 pg/mL (<300); Potassium 3.6 mmol/L (3.5-5.1); Sodium 131 mmol/L (136-145)
[2022-04-19 16:44] VITALS: BP 118/79; PULSE 87; RESP 20; TEMP 37; O2SAT 99
[2022-04-19] MEDS: ALBUMIN HUMAN 25 GM/100 ML BTL IV (17:04)
[2022-04-19] MEDS: Normal Saline Flush 10 ML SYR IVP (17:10)
--- NOTE | 2022-04-19 17:28 | DI.VRAD_ITS ---
PROCEDURE INFORMATION: Exam: XR Chest Exam date and time: 04/19/2022 4:42 PM Age: 56 years old Clinical indication: Other: S/P thorocentesis TECHNIQUE: Imaging protocol: Radiologic exam of the chest. Views: 1 view. COMPARISON: 1. CR XR CHEST 2V PA LATERAL 04/14/2022 11:07 AM 2. CR XR CHEST 2V PA LATERAL 04/06/2022 12:05 PM 3. CR XR PORTABLE CHEST AP 03/29/2022 1:42 PM 4. XR PORTABLE CHEST AP 03/08/2022 5:11 PM FINDINGS: Lungs: There is a suspected mass within the right lower lobe. Pleural spaces: There is a right pleural effusion. Heart/Mediastinum: Unremarkable. No cardiomegaly. Bones/joints: There is a the dextroscoliosis of the thoracic spine. IMPRESSION: No significant change when compared with the prior x-ray exam of the chest dated 04/14/2022. Right pleural effusion. Suspect mass within the right lower lobe. This could be re-evaluated with a CT scan of the chest with IV contrast if clinically warranted Dictated and Authenticated by: Prem Donaldson MD. Ordering:JEFFREY Oliva MD
--- NOTE | 2022-04-20 23:20 | ROE_ITS ---
Date of service: 04/19/22 Time of Service: 15:30 Operative Note Operative Note DATE OF PROCEDURE: 04/19/22 PRE-OP DIAGNOSIS: cirrhosis secondary to ETOH/Hep C POST-OP DIAGNOSIS: same PROCEDURE: Thoracentesis SURGEON: Hazel Lindsey ANESTHESIA TYPE: Local By Surgeon Refer to Anesthesia Record ESTIMATED BLOOD LOSS: 2 PATHOLOGY: none sent COMPLICATIONS: None Patient was transported to: same day Patient's condition: stable Procedure Description: The patient is brought to the procedure room and placed in the supine position.? Placement chosen on top in the right upper quadrant.? A time-out is done.? Ultrasound is used to localize the pocket.? There is seems to be about the usual amount of fluid in her chest. We did attempt doing pleurocentesis today today. The area is prepped and draped in the usual sterile fashion using a ChloraPrep scrub solution.? 20 cc's of 1% Lidocaine with epinephrine is used for local anesthetization.? The abdomen is punctured and the catheter is inserted.? Ultimately I only removed about 300 cc of fluid. There is no bleeding. Light yellow fluid is evacuated today.? The catheter is removed.? Pressure dressing is applied.? The patient tolerated the procedure well without complication. Postop checks x-ray showed no pneumothorax. The paracentesis was attended to next. Unfortunately after her last pa racentesis on the left side she has developed a persistent leak. A stitch had been placed. She has a colostomy bag over this week she says she changes it about 20 times a day. On ultrasound today she still has significant edema of the subcutaneous tissues but she has less than 2 to 300 cc of fluid in the abdomen. I think it is because it spontaneously draining I did remove the sutures she had in as they were irritating to her. However she had a persistent leak. She can keep a Band-Aid over this she was given the numbers and information to buy urostomy bags that do have a stay get type closure which may work better for her than colostomy bags. She has had this happen before at least 3 or 4 times. And they all have spontaneously closed. However today because of the continued leakage she does not require paracentesis her numbers continue to bounce around but show continued very slow decline. I have not been able to touch base with Dr. Noriega I will see her in the office next week to make sure she has received supplies and to see if she is still persistently leaking she gets her labs drawn next week to see if she is cleared from the hep C. She is very anxious about this. She is also very anxious that her daughter is leaving for college in the next week. She will follow us up in the office in the next week. No changes in medication. No changes in diet. Encourage exercise to tolerance. Call the office if she feels she is short of breath or fluid overloaded or has any other complications.
== END 2022-04-19 17:57 | disposition home or self-care (01) ==
LOC: SUR 14:54
PROVIDERS: PCP Family Medicine; Visit Provider Surgery
PROC: (CPT 32554; principal; 2022-04-19 15:15)
DX: J90 Pleural effusion, not elsewhere classified (principal); R18.8 Other ascites
CPT/HCPCS: 32554; 49082; 80053; 96365; 71045; 82140; 83735; 83880; 85025; 85610; 86140

== ENCOUNTER 2022-05-03 01:32 | Outpatient (CLI) | payer MEDICARE, MEDICAID, SELFPAY ==
[2022-05-03 08:54] LABS: HCT 32.8 % (36.0-46.0); HGB 10.9 g/dL (11.2-15.7); MCH 32.2 pg (27.0-33.0); MCHC 33.2 % (32.0-36.0); MCV 97 fL (80-95); Platelet Count 140 10^3/uL (130-400); RBC 3.39 10^6/uL (3.93-5.22); RDW 16.5 % (11.7-14.6); RDW-SD 58.6 fL; WBC 5.36 10^3/uL (4.4-10.8)
[2022-05-03 09:08] LABS: Ammonia 94 umol/L (11-32)
[2022-05-03 09:12] LABS: INR 1.3 (0.9-1.1); Prothrombin Time 13.2 sec (9.3-11.0)
[2022-05-03 09:16] LABS: ALT 44 U/L (14-59); AST 45 U/L (15-37); Albumin 2.9 g/dL (3.4-5.0); Alkaline Phosphatase 204 U/L (46-116); Anion Gap 4.8 mmol/L (3-11); BUN 34 mg/dL (7-18); Bilirubin, Total 2.1 mg/dL (0.2-1.0); C-Reactive Protein 0.84 mg/dL (0.0-0.3); CO2 29.2 mmol/L (21.0-32.0); CREATININE 1.9 mg/dL (0.55-1.02); Calcium 8.6 mg/dL (8.5-10.1); Chloride 104 mmol/L (98-107); Estimated GFR 27.55 (mL/min/1.73m2); Glucose 107 mg/dL (74-106); NT-proBNP 3215 pg/mL (<300); Potassium 4.9 mmol/L (3.5-5.1); Sodium 138 mmol/L (136-145); Total Protein 6.3 g/dL (6.4-8.2)
== END 2022-05-03 01:33 | disposition home or self-care (01) ==
LOC: LBO 01:33
PROVIDERS: PCP Family Medicine; Visit Provider Surgery
DX: I50.9 Heart failure, unspecified (principal); K74.60 Unspecified cirrhosis of liver; B18.2 Chronic viral hepatitis C; I48.91 Unspecified atrial fibrillation; K76.89 Other specified diseases of liver; K76.7 Hepatorenal syndrome; E87.1 Hypo-osmolality and hyponatremia; E87.6 Hypokalemia; Z79.899 Other long term (current) drug therapy
CPT/HCPCS: 36415; 80053; 85027; 82140; 83735; 83880; 85610; 86140

== ENCOUNTER 2022-05-03 08:59 | Day surgery (SDC) | payer MEDICARE, MEDICAID, SELFPAY ==
--- NOTE | 2022-05-02 22:20 | PDOC.DSDIS_ITS ---
Discharge Plan Disposition Patient Disposition: HOME Condition: Good Discharge Details Reason For Visit: removal of fluid Attending Provider: Hazel Lindsey Primary Care Provider: Dillon Muller [place] Meds and New Rx's Prescriptions: No Action nitroglycerin [Nitrostat] 0.4 mg tablet, sublingual 0.4 mg sublingual Q5M PRN Rx Instructions: do not exceed 3 doses per episode lactulose 20 gram/30 mL solution 30 ml PO DAILY PRN Rx Instructions: to achieve 3-4 stools/day 07/28/21 cgc spironolactone 50 mg tablet 200 mg PO DAILY Hold Instructions: Resume on 03/05/22. Rx Instructions: from [facility] [place]/06/22 magnesium oxide 400 mg magnesium tablet 400 mg PO BID Qty: 180 3RF famotidine 20 mg tablet 20 mg PO DAILY Label Comments: pt. states doesnt take acetaminophen 500 mg Tablet 500 mg PO Q6H PRN Xifaxan 550 mg tablet 550 mg PO BID Label Comments: TAKE ONE TABLET BY MOUTH TWICE A DAY. Pt. states she doesnt take furosemide 80 mg tablet 80 mg PO DAILY Label Comments: TAKE ONE TABLET BY MOUTH EVERY DAY simethicone [Gas Relief Extra Strength] 125 mg Tablet,Chewable 125 mg PO BID-QID PRN gabapentin 100 mg Tablet 200 mg PO DAILY hydrocortisone [Procto-Med HC] 2.5 % cream with perineal applicator 1 applic topical PRN PRN Label Comments: APPLY TWO TO FOUR TIMES PER DAY NEEDED metoprolol tartrate 50 mg tablet 1 tab PO TID Label Comments: TAKE ONE TABLET BY MOUTH EVERY 8 HOURS Discharge Instructions Additional Instructions: f/u in 2 wks for repeat procedure Activity:: Activity as Tolerated Remove Dressings/Wound Care:: 24 hours Shower/Bathe:: 24 hours Diet:: high protein Discharge Orders Discharge Orders: Discharge Order (Routine); Ordered 05/02/22 Ordered By: Hazel Lindsey
[2022-05-03 09:12] VITALS: BP 129/82; PULSE 80; RESP 22; TEMP 36.2; O2SAT 100
[2022-05-03] MEDS: Normal Saline Flush 10 ML SYR IV ×2 (09:30→11:04)
[2022-05-03] MEDS: Lidocaine 1% Multi-Dose W/EPI 1/100,000 50 ML VIAL (10:13)
[2022-05-03] MEDS: Sodium Bicarbonate 50 MEQ/50 ML VIAL (10:13)
[2022-05-03 10:50] VITALS: BP 122/80; PULSE 79; RESP 22; TEMP 35.9; O2SAT 100
[2022-05-03] MEDS: ALBUMIN HUMAN 25 GM/100 ML BTL IV ×2 (10:57→11:32)
--- NOTE | 2022-05-03 11:28 | W.PM.OP ---
Date of service: 05/03/22 Time of Service: 11:28 Operative Note Operative Note DATE OF PROCEDURE: 05/03/22 PRE-OP DIAGNOSIS: cirrhosis POST-OP DIAGNOSIS: same PROCEDURE: paracentisis SURGEON: Hazel Lindsey ANESTHESIA TYPE: Local By Surgeon Refer to Anesthesia Record ESTIMATED BLOOD LOSS: 1 PATHOLOGY: none sent COMPLICATIONS: None Patient was transported to: same day Patient's condition: stable Procedure Description: The patient is brought to the procedure room and placed in the supine position.? Placement chosen on top in the right upper quadrant.? A time-out is done.? Ultrasound is used to localize the pocket.? The area is prepped and draped in the usual sterile fashion using a ChloraPrep scrub solution.? 20 cc's of 1% Lidocaine with epinephrine is used for local anesthetization.? The abdomen is punctured and the catheter is inserted.? 5.6 liters of light yellow fluid is evacuated today.? The catheter is removed.? Pressure dressing is applied, and a 3-0 Prolene suture is placed. The patient tolerated the procedure well without complication. Patient did not have a thoracentesis done today. Bedside ultrasound shows about 300 cc of fluid in the chest. She is not clinically symptomatic. And they elected not to do a thoracentesis today She will follow-up with me in weeks time for repeat procedure.
== END 2022-05-03 12:13 | disposition home or self-care (01) ==
PROVIDERS: PCP Family Medicine; Visit Provider Surgery
PROC: 0W9G3ZZ Drainage of Peritoneal Cavity, Percutaneous Approach (ICD-10-PCS; CPT 49082; 2022-05-03 09:45)
DX: K74.60 Unspecified cirrhosis of liver (principal); R18.8 Other ascites
CPT/HCPCS: 49082; 36415; 80053; 85027; 96365; 82140; 83735; 83880; 85610; 86140

== ENCOUNTER 2022-05-17 03:37 | Outpatient (CLI) | payer MEDICARE, SELFPAY ==
[2022-05-17 08:58] LABS: HCT 31.8 % (36.0-46.0); HGB 10.3 g/dL (11.2-15.7); MCH 31.5 pg (27.0-33.0); MCHC 32.4 % (32.0-36.0); MCV 97 fL (80-95); MPV 9.9 fL (8.0-11.0); Platelet Count 128 10^3/uL (130-400); RBC 3.27 10^6/uL (3.93-5.22); RDW 16.3 % (11.7-14.6); RDW-SD 59.5 fL; WBC 4.78 10^3/uL (4.4-10.8)
[2022-05-17 09:11] LABS: Ammonia 104 umol/L (11-32)
[2022-05-17 09:13] LABS: INR 1.4 (0.9-1.1); Prothrombin Time 13.4 sec (9.3-11.0)
[2022-05-17 09:22] LABS: ALT 40 U/L (14-59); AST 43 U/L (15-37); Albumin 2.9 g/dL (3.4-5.0); Alkaline Phosphatase 135 U/L (46-116); Anion Gap 5.1 mmol/L (3-11); BUN 26 mg/dL (7-18); Bilirubin, Total 2.7 mg/dL (0.2-1.0); C-Reactive Protein 0.95 mg/dL (0.0-0.3); CO2 29.9 mmol/L (21.0-32.0); CREATININE 1.8 mg/dL (0.55-1.02); Calcium 8.3 mg/dL (8.5-10.1); Chloride 103 mmol/L (98-107); Estimated GFR 33.07 (mL/min/1.73m2); Glucose 106 mg/dL (74-106); Magnesium 1.5 mg/dL (1.8-2.4); NT-proBNP 2993 pg/mL (<300); Potassium 3.5 mmol/L (3.5-5.1); Sodium 138 mmol/L (136-145); Total Protein 6.2 g/dL (6.4-8.2)
== END 2022-05-17 03:38 | disposition home or self-care (01) ==
LOC: LBO 03:37
PROVIDERS: PCP Family Medicine; Visit Provider Surgery
DX: I50.9 Heart failure, unspecified (principal); B19.20 Unspecified viral hepatitis C without hepatic coma; K74.60 Unspecified cirrhosis of liver; I48.91 Unspecified atrial fibrillation; B18.2 Chronic viral hepatitis C
CPT/HCPCS: 36415; 80053; 85027; 82140; 83735; 83880; 85610; 86140

== ENCOUNTER 2022-05-17 08:58 | Day surgery (SDC) | payer MEDICARE, MEDICAID, SELFPAY ==
--- NOTE | 2022-05-17 | DI.RAD_ITS ---
Exam(s) XR PORTABLE CHEST AP EXAM: XR PORTABLE CHEST AP CLINICAL HISTORY: s/p thoro TECHNIQUE: COMPARISON: CR,XR XR PORTABLE CHEST AP from 04/19/2022 FINDINGS: Portable upright chest at 1310 hours. This is reportedly a post thoracentesis film. There is a mode rate size right pleural effusion. There is no evidence of pneumothorax. Left lung is clear. IMPRESSION: RADIATION DOSE DELIVERED: Total DLP
[2022-05-17 09:21] VITALS: BP 127/88; PULSE 77; RESP 16; TEMP 36.6; O2SAT 100
[2022-05-17] MEDS: Lidocaine 1% Multi-Dose W/EPI 1/100,000 50 ML VIAL (12:39)
[2022-05-17] MEDS: Sodium Bicarbonate 50 MEQ/50 ML VIAL (12:39)
--- NOTE | 2022-05-17 12:46 | W.PM.OP ---
Date of service: 05/17/22 Time of Service: 12:47 Operative Note Operative Note DATE OF PROCEDURE: 05/17/22 PRE-OP DIAGNOSIS: CHF/cirrhosis POST-OP DIAGNOSIS: same SURGEON: Hazel Lindsey ANESTHESIA TYPE: Local By Surgeon Refer to Anesthesia Record ESTIMATED BLOOD LOSS: 0 PATHOLOGY: none sent COMPLICATIONS: None Procedure Description: REPORT OF OPERATION Operative Note Operative Note Pt is here today for thoracentesis for symptoms of shortness of breath.? Chest x-ray was reviewed prior to beginning the procedure.? Informed consent was obtained explaining risks and benefits of the procedure, including but not limited to bleeding, infection, pneumothorax, recurrence, complications of anesthesia, and other unforetold complications. ? PROCEDURE:? The patient is brought to the procedure room and placed in the seated position.? Ultrasound is used to localize the pocket on the right chest.? The area is marked and then prepped and draped in the usual sterile fashion using a ChloraPrep scrub solution.? 10 cc's of 1% Lidocaine is used to anesthetize the T10 interspace. ? The small chai is made with a #11 blade.? The needle and catheter is then inserted over the top of the rib, aspirating as it is inserted.? The needle is then removed.? The catheter is then hooked up to the Vacutainer system and 2200 cc's of straw-colored fluid is evacuated.? The catheter is removed; pressure is held.? Sterile compression dressing is applied. The patient is brought to the procedure room and placed in the supine position.? Placement chosen on top in the right upper quadrant.? A time-out is done.? Ultrasound is used to localize the pocket.? The area is prepped and draped in the usual sterile fashion using a ChloraPrep scrub solution.? 10 cc's of 1% Lidocaine with epinephrine is used for local anesthetization.? The abdomen is punctured and the catheter is inserted.? 5200 liters of light yellow fluid is evacuated today.? The catheter is removed.? Pressure dressing is applied.? The patient tolerated the procedure well without complication. ? Portable chest x-ray shows no pneumothorax.? Pt is given instructions in wound care, activity, medications, and warning signs: SOB, increasing in pain, chest pain, redness or temperature- if these occur, come to ED.
[2022-05-17 12:48] VITALS: BP 114/79; PULSE 75; RESP 16; TEMP 36.3; O2SAT 99
--- NOTE | 2022-05-17 13:19 | W.PM.DSUDISC ---
Discharge Plan Disposition Patient Disposition: HOME Condition: Good Discharge Details Attending Provider: Hazel Lindsey Primary Care Provider: Dillon Muller Home Meds and New Rx's Prescriptions: No Action nitroglycerin [Nitrostat] 0.4 mg tablet, sublingual 0.4 mg sublingual Q5M PRN Rx Instructions: do not exceed 3 doses per episode lactulose 20 gram/30 mL solution 30 ml PO DAILY PRN Rx Instructions: to achieve 3-4 stools/day 07/28/21 cgc spironolactone 50 mg tablet 200 mg PO DAILY Hold Instructions: Resume on 03/05/22. Rx Instructions: from [facility] [place] 01/06/22 magnesium oxide 400 mg magnesium tablet 400 mg PO BID Qty: 180 3RF famotidine 20 mg tablet 20 mg PO DAILY Label Comments: pt. states doesnt take acetaminophen 500 mg Tablet 500 mg PO Q6H PRN Xifaxan 550 mg tablet 550 mg PO BID Label Comments: TAKE ONE TABLET BY MOUTH TWICE A DAY. Pt. states she doesnt take furosemide 80 mg tablet 80 mg PO DAILY Label Comments: TAKE ONE TABLET BY MOUTH EVERY DAY simethicone [Gas Relief Extra Strength] 125 mg Tablet,Chewable 125 mg PO BID-QID PRN gabapentin 100 mg Tablet 200 mg PO DAILY hydrocortisone [Procto-Med HC] 2.5 % cream with perineal applicator 1 applic topical PRN PRN Label Comments: APPLY TWO TO FOUR TIMES PER DAY NEEDED metoprolol tartrate 50 mg tablet 1 tab PO TID Label Comments: TAKE ONE TABLET BY MOUTH EVERY 8 HOURS Discharge Instructions Additional Instructions: f/u in 2 wks for repeat procedure Activity:: Activity as Tolerated Remove Dressings/Wound Care:: 24 hours Shower/Bathe:: 24 hours Diet:: high prtoein
== END 2022-05-17 13:40 | disposition home or self-care (01) ==
PROVIDERS: PCP Family Medicine; Visit Provider Surgery
PROC: (CPT 32554; principal; 2022-05-17 10:00)
PROC: 0W9G3ZZ Drainage of Peritoneal Cavity, Percutaneous Approach (ICD-10-PCS; CPT 49082; 2022-05-17 10:00)
DX: J90 Pleural effusion, not elsewhere classified (principal); R18.8 Other ascites; I50.9 Heart failure, unspecified; K74.60 Unspecified cirrhosis of liver
CPT/HCPCS: 32554; 49082; 36415; 80053; 85027; 71045; 82140; 83735; 83880; 85610; 86140

== ENCOUNTER 2022-05-20 09:43 | Emergency (ER) | payer MEDICARE, MEDICAID, SELFPAY ==
[2022-05-20 09:55] VITALS: BP 127/80; PULSE 70; RESP 17; TEMP 37; O2SAT 97
[2022-05-20 10:29] VITALS: RESP 16
--- NOTE | 2022-05-20 10:35 | NUR.NOTE ---
Nursing Note: patient refused having an IV catheter placed.
--- NOTE | 2022-05-20 10:45 | DI.RAD_ITS ---
Exam(s) XR CHEST 2V PA LATERAL EXAM: XR CHEST 2V PA LATERAL CLINICAL HISTORY: Question of pleural effusion? TECHNIQUE: COMPARISON: CR XR CHEST 2V PA LATERAL from 04/14/2022 CR,XR XR PORTABLE CHEST AP from 04/19/2022 CR XR PORTABLE CHEST AP from 05/17/2022 FINDINGS: Note is again made of previously described right pleural effusion, no gross interval change in appear ance comparison with previous examination of May 17. Left lung and right upper lung field remai n clear. No cardiomegaly seen. IMPRESSION: Persistent right pleural effusion, unchanged. RADIATION DOSE DELIVERED: Total DLP
[2022-05-20 10:50] LABS: Abs Immature Grans 0.03 10^3/uL (0.0-0.06); Absolute Basophil Count 0.07 10^3/uL (0.0-0.2); Absolute Eosinophil Count 0.23 10^3/uL (0.0-0.7); Absolute Lymphocyte Count 1.15 10^3/uL (1.2-3.4); Absolute Monocyte Count 0.77 10^3/uL (0.1-0.8); Basophils % 1.4; Eosinophils % 4.6; HCT 32.2 % (36.0-46.0); HGB 10.8 g/dL (11.2-15.7); Immature Grans % 0.6; Lymphocytes % 22.8; MCH 31.7 pg (27.0-33.0); MCHC 33.5 % (32.0-36.0); MCV 94 fL (80-95); Monocytes % 15.2; Neutrophils % 55.4; Platelet Count 135 10^3/uL (130-400); RBC 3.41 10^6/uL (3.93-5.22); RDW-SD 55.1 fL; WBC 5.05 10^3/uL (4.4-10.8)
[2022-05-20 11:08] LABS: ALT 44 U/L (14-59); AST 51 U/L (15-37); Albumin 2.8 g/dL (3.4-5.0); Alkaline Phosphatase 169 U/L (46-116); Anion Gap 6.6 mmol/L (3-11); BUN 34 mg/dL (7-18); Bilirubin, Total 2.9 mg/dL (0.2-1.0); CO2 27.4 mmol/L (21.0-32.0); CREATININE 1.9 mg/dL (0.55-1.02); Calcium 8.6 mg/dL (8.5-10.1); Chloride 100 mmol/L (98-107); Estimated GFR 30.99 (mL/min/1.73m2); Glucose 96 mg/dL (74-106); Sodium 134 mmol/L (136-145); Total Protein 6.3 g/dL (6.4-8.2)
[2022-05-20 11:41] LABS: Bilirubin Negative (Negative); Blood Small (Negative); Clarity Clear (Clear); Glucose Negative (Negative); Ketones Negative (Negative); Leukocyte Esterase Negative (Negative); Nitrite Negative (Negative); Specific Gravity 1.015 (1.005-1.025); Urobilinogen 0.2 EU/dL (Up TO 0.2)
[2022-05-20 11:47] LABS: Bacteria Negative HPF (Negative); C & S Indicated? No; Casts Negative LPF (Negative); Crystals Negative HPF (Negative); Epithelial Cells Few HPF (Negative); Mucus Negative (Negative)
--- NOTE | 2022-05-20 13:19 | ED.GENADUL_ITS ---
Discharge Plan Disposition Patient Disposition: HOME Condition: Stable Discharge Details Clinical Impression: Pleural effusion associated with hepatic disorder, Advanced hepatic cirrhosis, Abdominal ascites Primary Care Provider: Dillon Muller ED Provider: Albaro Escalera Home Meds and New Rx's Prescriptions: No Action nitroglycerin [Nitrostat] 0.4 mg tablet, sublingual 0.4 mg sublingual Q5M PRN Rx Instructions: do not exceed 3 doses per episode lactulose 20 gram/30 mL solution 30 ml PO DAILY PRN Rx Instructions: to achieve 3-4 stools/day 07/28/21 cgc spironolactone 50 mg tablet 200 mg PO DAILY Hold Instructions: Resume on 03/05/22. Rx Instructions: from [facility] [place] 01/06/22 magnesium oxide 400 mg magnesium tablet 400 mg PO BID Qty: 180 3RF famotidine 20 mg tablet 20 mg PO DAILY Label Comments: pt. states doesnt take acetaminophen 500 mg Tablet 500 mg PO Q6H PRN Xifaxan 550 mg tablet 550 mg PO BID Label Comments: TAKE ONE TABLET BY MOUTH TWICE A DAY. Pt. states she doesnt take furosemide 80 mg tablet 80 mg PO DAILY Label Comments: TAKE ONE TABLET BY MOUTH EVERY DAY simethicone [Gas Relief Extra Strength] 125 mg Tablet,Chewable 125 mg PO BID-QID PRN gabapentin 100 mg Tablet 200 mg PO DAILY hydrocortisone [Procto-Med HC] 2.5 % cream with perineal applicator 1 applic topical PRN PRN Label Comments: APPLY TWO TO FOUR TIMES PER DAY NEEDED metoprolol tartrate 50 mg tablet 1 tab PO TID Label Comments: TAKE ONE TABLET BY MOUTH EVERY 8 HOURS Discharge Instructions Instructions: Ascites (ED) Additional Instructions: Continue to take your medications as prescribed. It is very important that you continue to take your lactulose and your other daily meds. If you had any new or significant worsening of symptoms feel free to return to the emergency department for reassessment otherwise contact general surgery next week if you continue to accumulate fluid faster than your normal. Referrals: [facility] [Provider Group] Discharge Data Discharge Date/Time-TO BE ENTERED AT DEPARTURE: 05/20/22 14:44 Medical Decision Making Patient presenting to the emergency department for chief complaint of abdominal fluid buildup causing some slow urination and slow bowel movements. Patient has ongoing history of ascites with pleural effusion secondary to cirrhosis. She does state that she has been taking medication as normal denies any confusion, altered mental status. She does state that she just had her abdomen and chest drained 3 days ago. Physical exam shows soft but distended abdomen with obvious ascites. Diminished lung sounds in the right lower but otherwise unremarkable chest exam, patient in stable condition alert and oriented x4 with no other obvious worrisome findings noted. Patient only has abdominal pain when palpat ing around areas of suture but no diffuse abdominal pain. Patient is afebrile. We will perform chest x-ray for evaluation of pleural effusion but at this time I do not feel that patient needs CT examination given very clear history of cirrhosis. I do not find any peritoneal findings on exam and I have low suspicion for infection post paracentesis or thoracentesis at this time. Radiological imaging shows a persistent pleural effusion. Discussed case with attending physician in regards to paracentesis or thoracentesis. At this time patient could receive a thoracentesis but after bedside ultrasound seem to be a significant amount of fluid on the abdomen. Since patient was just drained a couple days ago I did call and speak with surgeon on-call whom states that patient is in a continual state of fluid accumulation and persistently requests drainage by their office. She stated that if patient was willing that we could offer symptomatic drainage but given patient's history this does not seem to be an emergent necessity. Discussed with patient drainage of pleural effusion but not the abdomen at this time. After thorough discussion of risk versus benefit patient is refusing thoracentesis. Patient is in no signs of respiratory distress, alert and oriented x4, no other worrisome findings. Will discharge patient with having her follow-up as previously scheduled. After discussion of diagnosis and plan of care patient has no further needs, questions, or concerns and states clear understanding to return to the emergency department for any worsening symptoms. This documentation was generated using myinfoQation system, please disregard any oddities of phrase or misspellings. Imaging Data Radiologic Study: Attestation: I personally reviewed and interpreted this imaging study as follows: Imaging: X-Ray Radiologist's impression: Exam(s) XR CHEST 2V PA LATERAL EXAM: XR CHEST 2V PA LATERAL CLINICAL HISTORY: Question of pleural effusion? TECHNIQUE: COMPARISON: CR XR CHEST 2V PA LATERAL from 04/14/2022 CR,XR XR PORTABLE CHEST AP from 04/19/2022 CR XR PORTABLE CHEST AP from 05/17/2022 FINDINGS: Note is again made of previously described right pleural effusion, no gross int erval change in appearance comparison with previous examination of May 17. Left lung and right upper lung field remain clear. No cardiomegaly seen. IMPRESSION: Persistent right pleural effusion, unchanged. HPI General Mode of arrival: ambulatory . Date/Time Provider Initiated Documentation: 05/20/22 10:04 . Limitations to Documentation: no limitations . Information obtained by: patient and RN notes reviewed . History of Present Illness 56 year old F presents to the emergency department with the chief complaint of Abdominal swelling, described as moderate and similar to prior episodes, with intensity rated at 3. Quality is described as aching, and is localized to the abdomen. Patient reports no radiation. Patient started experiencing this day(s) (1) and it has been constant. No relieving factors improve symptom(s), No exacerbating factors reported . Patient did receive the following treatments prior to arrival, none Related Data Home Medications Medication Instructions Recorded Confirmed nitroglycerin 0.4 mg sublingual 0.4 mg sublingual Q5M PRN 04/05/21 05/20/22 tablet (Nitrostat) lactulose 20 gram/30 mL oral 30 ml PO DAILY PRN 07/29/21 05/20/22 solution acetaminophen 500 mg tablet 500 mg PO Q6H PRN 10/05/21 05/20/22 rifaximin 550 mg tablet (Xifaxan) 550 mg PO BID 11/16/21 05/20/22 furosemide 80 mg tablet 80 mg PO DAILY 12/24/21 05/20/22 simethicone 125 mg chewable tablet 125 mg PO BID-QID PRN 12/24/21 05/20/22 (Gas Relief Extra Strength) spironolactone 50 mg tablet 200 mg PO DAILY 01/06/22 05/20/22 gabapentin 100 mg tablet 200 mg PO DAILY 02/18/22 05/20/22 magnesium oxide 400 mg PO BID #180 tabs 03/01/22 05/20/22 hydrocortisone 2.5 % topical cream 1 applic topical PRN PRN 03/29/22 05/20/22 with perineal applicator (Procto-Med ) metoprolol tartrate 50 mg tablet 1 tab PO TID 03/29/22 05/20/22 famotidine 20 mg tablet 20 mg PO DAILY 03/31/22 05/20/22 Previous Rx's Medication Instructions Recorded magnesium oxide 400 mg PO BID #180 tabs 03/01/22 Allergies Allergy/AdvReac Type Severity Reaction Status Date / Time amphetamine aspartate Allergy Severe Facial Verified 05/17/22 09:16 [From Adderall] Swelling, Blisters, Tongue Swelling, Rash, amphetamine sulfate Allergy Severe Facial Verified 05/17/22 09:16 [From Adderall] Swelling, Blisters, Tongue Swelling, Rash, dextroamphetamine saccharate Allergy Severe Facial Verified 05/17/22 09:16 [From Adderall] Swelling, Blisters, Tongue Swelling, Rash, dextroamphetamine sulfate Allergy Severe Facial Verified 05/17/22 09:16 [From Adderall] Swelling, Blisters, Tongue Swelling, Rash, Penicillins Allergy Intermediate Hives, Verified 05/17/22 09:16 Rash, Tongue Swelling codeine AdvReac Mild Constipatio Verified 05/17/22 09:16 n General Stated Complaint: GenMedical JOE: 3 Review of Systems Constitutional Constitutional: Denies chills, Denies fever(s) and Denies malaise Eyes Eyes: Denies change in vision ENT Ears, Nose, Mouth, and Throat: Denies dizziness Cardiovascular Cardiovascular: Denies chest pain, Denies syncope and Denies dyspnea Respiratory Respiratory: Denies cough, Denies pain on inspiration and Denies dyspnea Gastrointestinal Gastrointestinal: Reports as per HPI, Denies abdominal pain, Reports constipation, Denies diarrhea, Denies vomiting and Denies hematemesis Genitourinary Genitourinary: Reports difficulty voiding, Denies dysuria, Denies urinary incontinence, Denies urinary hesitancy and Denies urinary urgency Musculoskeletal Musculoskeletal: Denies back pain Integumentary/Breasts Skin/Breast: Denies rash Neurologic Neurologic: Denies abnormal speech, Denies confusion, Denies dizziness and Denies syncope Psychiatric Psychiatric: Denies confusion PFSH All Active Problems (Updated 05/20/22 @ 14:39 by Albaro Escalera NP) Pleural effusion associated with hepatic disorder (Acute) Tense ascites (Acute) Hypertension (Chronic ~02/2022) 03/17/22 [facility] [place] Other ascites (Acute ~01/2022) 02/09/22 [facility] [place], weekly thoracentesis PAF (paroxysmal atrial fibrillation) (Acute) 02/09/22 [facility] [place], ZIO Patch placed Chronic heart failure with preserved ejection fraction (Acute) 02/09/22 [facility] [place] [facility] Encephalopathy chronic (Acute) Cardiomyopathy (Active 04/22/13) Congestive heart failure (Acute 04/22/13) Pleural effusion (Acute 04/22/13) History of gallstones (Active) Depressive disorder (Active) Anxiety (Active) Adult attention deficit hyperactivity disorder (Active) Constipation (Active) Irritable colon (Active) Smoking history (Active) History of surgery (Active) Uterine ablation approxinmately 2006 Two sections. Chronic hepatitis C (Chronic) Treated and cured, relapsed 02/2021 completed 24 wks Harvoni and ribavirin per note 05/05/22 CKD (chronic kidney disease) stage 4, GFR 15-29 ml/min (Acute) Atrial fibrillation with controlled ventricular rate (Acute) Advanced hepatic cirrhosis (Chronic) Hep C & ETOH Nephrotic syndrome (Acute) Hypokalemia (Acute) Prerenal azotemia (Acute) Cirrhosis of liver with ascites (Acute) 11/10/21 [facility] [place] Hypokalemia due to excessive renal loss of potassium (Acute) Hydrothorax (Acute) 03/31/21 [facility] [place] 02/09/22 [facility] [place] [facility] Hepatic encephalopathy (Acute) 03/31/21 telehealth [facility] [place] [facility] Seasonal allergic rhinitis (Acute) 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) (Acute) Per [facility] [place] note from 05/11/21 Abdominal ascites (Acute) Medical History (Updated 05/20/22 @ 14:39 by Albaro Escalera NP) Anxiety Attention deficit hyperactivity disorder, combined type 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 History of abdominal paracentesis Irritable colon Renal failure syndrome SVT (supraventricular tachycardia) Surgical History section x2 History of ileal conduit History of thoracentesis (~12/28/21) 08/03/20,08/10/20 08/21/20,08/31/20 Hx of tubal ligation S/P abdominal paracentesis (~12/28/21) Family History Mother Hypertensive disorder, systemic arterial Cancer Cervical Father Hypertensive disorder, systemic arterial Maternal Grandfather Diabetes Maternal Grandmother Cancer Ovarian Social History Smoking/Tobacco Use Status: Former Tobacco Use Quit Date: 09/18/18 Smoking risk assessment performed?: Yes Alcohol Intake: former Drug use: Never Substance use type: does not use Adopted: No Caregiver/Support person: No Foster care: No Household members: family Housing: house Number of Children: 4 number of grandchildren: 2 Communication Needs: None Do you need help understanding health information?: Often current occupation: Used to work for [employer] Current gender identity: female What is your relationship status?: How often do you talk on the phone with friends or family?: three or more times per week Panel score (0-1 are the most socially isolated patients): 2 What type of physical activity do you participate in: none Seatbelt use: always Drive intox or ride w/intox skidder driver: No Working smoke detector in home: Yes Fire extinguisher in home: Yes Carbon monox detector in home: Yes Do you feel safe at home: Yes Do you feel safe in your relationship?: Yes Exam Const General: cooperative, no acute distress and not ill appearing Orientation: alert, awake and oriented x3 HENMT Mouth: moist mucous membranes Resp Effort & Inspection: normal respiratory effort, able to speak in complete sentences and no respiratory distress Auscultation: clear to auscultation bilaterally and diminished lung sounds on the right in the lower lung preston Cardio Rate: regular rate Rhythm: regular rhythm GI Inspection: no abdominal wall ecchymosis and distended Palpation: soft, not firm, no guarding, no masses, not rigid and ascites Auscultation: normal bowel sounds Skin General skin exam: no rashes or lesions noted Neuro General: patient alert, patient awake, patient oriented x3, moves all extremities and no focal motor deficits Sensory Exam: no sensory deficits noted Course Vital Signs Vital signs: Vital Signs Temperature 37 C 05/20/22 09:55 Pulse 70 05/20/22 09:55 Respiratory Rate 17 05/20/22 09:55 Blood Pressure 127/80 05/20/22 09:55 Pulse Oximetry 97 05/20/22 09:55 Temperature 37 C 05/20/22 09:55 Temperature Source Temporal Artery Scan 05/20/22 09:55 Pulse 70 05/20/22 09:55 Respiratory Rate 16 09/02/22 10:29 Respiratory Effort Short of Breath 05/20/22 10:29 Respiratory Depth Normal 05/20/22 10:29 Respiratory Pattern Normal 05/20/22 10:29 Blood Pressure 127/80 05/20/22 09:55 Blood Pressure Position Sitting 05/20/22 09:55 Pulse Oximetry 97 05/20/22 09:55 Oxygen Delivery Method Room Air 05/20/22 09:55 Oxygen Flow Rate 0 05/20/22 09:55 Lab/Test Results Lab/Test Results: Laboratory Tests Range/Units 05/20/22 05/20/22 05/20/22 10:45 10:45 11:24 WBC (4.4-10.8) 10^3/uL 5.05 RBC (3.93-5.22) 10^6/uL 3.41 L Hgb (11.2-15.7) g/dL 10.8 L Hct (36.0-46.0) % 32.2 L MCV (80-95) fL 94 MCH (27.0-33.0) pg 31.7 MCHC (32.0-36.0) % 33.5 RDW (11.7-14.6) % 16.0 H Plt Count (130-400) 10^3/uL 135 MPV (8.0-11.0) fL 10.0 Immature Gran % 0.6 Neutrophils % 55.4 Lymphocytes % 22.8 Monocytes % 15.2 Eosinophils % 4.6 Basophils % 1.4 Nucleated RBC % (0.0-0.3) % 0.0 Absolute Neutrophils (1.2-6.7) 10^3/uL 2.80 Absolute Lymphocytes (1.2-3.4) 10^3/uL 1.15 L Absolute Monocytes (0.1-0.8) 10^3/uL 0.77 Absolute Eosinophils (0.0-0.7) 10^3/uL 0.23 Absolute Basophils (0.0-0.2) 10^3/uL 0.07 Sodium (136-145) mmol/L 134 L Potassium (3.5-5.1) mmol/L 4.0 Chloride (98-107) mmol/L 100 Carbon Dioxide (21.0-32.0) mmol/L 27.4 Anion Gap (3-11) mmol/L 6.6 BUN (7-18) mg/dL 34 H Creatinine (0.55-1.02) mg/dL 1.9 H Est GFR (CKD-EPI 2020) (mL/min/1.73m2) 30.99 Glucose (74-106) mg/dL 96 Calcium (8.5-10.1) mg/dL 8.6 Total Bilirubin (0.2-1.0) mg/dL 2.9 H AST (15-37) U/L 51 H ALT (14-59) U/L 44 Alkaline Phosphatase (46-116) U/L 169 H Total Protein (6.4-8.2) g/dL 6.3 L Albumin (3.4-5.0) g/dL 2.8 L Urine Color (Yellow) Yellow Urine Clarity (Clear) Clear Urine pH (5-8) 7.0 Ur Specific [place] (1.005-1.025) 1.015 Urine Protein (Negative) mg/dL Negative Urine Ketones (Negative) mg/dL Negative Urine Blood (Negative) Small H Urine Nitrite (Negative) Negative Urine Bilirubin (Negative) Negative Urine Urobilinogen (Up TO 0.2) EU/dL 0.2 Ur Leukocyte Esterase (Negative) Negative Urine RBC (0-2) HPF 3-5 H Urine WBC (0-5) HPF 3-5 Ur Epithelial Cells (Negative) HPF Few Urine Crystals (Negative) HPF Negative Urine Bacteria (Negative) HPF Negative Urine Casts (Negative) LPF Negative Urine Mucus (Negative) Negative Ur Culture Indicated? No Urine Glucose (Negative) mg/dL Negative
[2022-05-20 14:10] LABS: INR 1.5 (0.9-1.1); PTT Activated 35.8 sec (21.0-27.5); Prothrombin Time 14.4 sec (9.3-11.0)
[2022-05-20 14:43] VITALS: RESP 16
== END 2022-05-20 14:44 | disposition home or self-care (01) ==
PROVIDERS: Emergency Provider Nurse Practitioner Family; PCP Family Medicine
DX: J90 Pleural effusion, not elsewhere classified (principal); K74.69 Other cirrhosis of liver; F90.2 Attention-deficit hyperactivity disorder, combined type; Z86.16 Personal history of COVID-19; Z87.891 Personal history of nicotine dependence
CPT/HCPCS: 36415; 80053; 99284; 71046; 81003; 81015; 85025; 85610; 85730

== ENCOUNTER 2022-05-27 07:13 | Day surgery (SDC) | payer MEDICARE, MEDICAID, SELFPAY ==
[2022-05-27 07:36] VITALS: BP 130/78; PULSE 76; RESP 22; TEMP 36.2; O2SAT 98
[2022-05-27] MEDS: Normal Saline Flush 10 ML SYR IVP ×3 (08:07→10:37)
[2022-05-27] MEDS: Sodium Bicarbonate 50 MEQ/50 ML VIAL (08:59)
[2022-05-27] MEDS: Lidocaine 1% Multi-Dose W/EPI 1/100,000 50 ML VIAL (08:59)
[2022-05-27] MEDS: Normal Saline Flush 10 ML SYR (09:25)
[2022-05-27 09:35] VITALS: BP 116/68; PULSE 84; RESP 20; TEMP 36; O2SAT 97
--- NOTE | 2022-05-27 09:39 | PDOC.DSDIS_ITS ---
Discharge Plan Disposition Patient Disposition: HOME Condition: Good Discharge Details Reason For Visit: paracentesis Attending Provider: Wing Del Toro Primary Care Provider: Dillon Muller Home Meds and New Rx's Prescriptions: Continued nitroglycerin [Nitrostat] 0.4 mg tablet, sublingual 0.4 mg sublingual Q5M PRN Rx Instructions: do not exceed 3 doses per episode lactulose 20 gram/30 mL solution 30 ml PO DAILY PRN Rx Instructions: to achieve 3-4 stools/day 07/28/21 cgc spironolactone 50 mg tablet 200 mg PO DAILY Hold Instructions: Resume on 03/05/22. Rx Instructions: from [facility] [place] hepatology note 01/06/22 magnesium oxide 400 mg magnesium tablet 400 mg PO BID Qty: 180 3RF famotidine 20 mg tablet 20 mg PO DAILY Label Comments: pt. states doesnt take acetaminophen 500 mg Tablet 500 mg PO Q6H PRN Xifaxan 550 mg tablet 550 mg PO BID Label Comments: TAKE ONE TABLET BY MOUTH TWICE A DAY. Pt. states she doesnt take furosemide 80 mg tablet 80 mg PO DAILY Label Comments: TAKE ONE TABLET BY MOUTH EVERY DAY simethicone [Gas Relief Extra Strength] 125 mg Tablet,Chewable 125 mg PO BID-QID PRN gabapentin 100 mg Tablet 200 mg PO DAILY hydrocortisone [Procto-Med HC] 2.5 % cream with perineal applicator 1 applic topical PRN PRN Label Comments: APPLY TWO TO FOUR TIMES PER DAY NEEDED metoprolol tartrate 50 mg tablet 1 tab PO TID Label Comments: TAKE ONE TABLET BY MOUTH EVERY 8 HOURS Discharge Instructions Instructions: Paracentesis (DC) Activity:: Activity as Tolerated Remove Dressings/Wound Care:: 24 hours Shower/Bathe:: 24 hours Diet:: As Tolerated Discharge Orders Discharge Orders: Discharge Order (Routine); Ordered 05/27/22 Ordered By: Wing Del Toro DS: Diagnosis Discharge Diagnosis (1) Tense ascites: Status: Acute Asessment and Plan: therapeutic paracentesis
[2022-05-27] MEDS: ALBUMIN HUMAN 25 GM/100 ML BTL IV (09:48)
--- NOTE | 2022-05-27 11:10 | W.PM.OP ---
Date of service: 05/27/22 Time of Service: 09:30 Operative Note Operative Note DATE OF PROCEDURE: 05/27/22 PRE-OP DIAGNOSIS: Tense ascites POST-OP DIAGNOSIS: same PROCEDURE: Therapeutic paracentesis SURGEON: Wing Del Toro Refer to Anesthesia Record ESTIMATED BLOOD LOSS: 0 PATHOLOGY: none sent COMPLICATIONS: None Patient was transported to: same day Patient's condition: stable Implants: none Indications: Erin De Leon is a 56-year-old woman with longstanding cirrhosis and tense ascites. She requires near weekly therapeutic paracentesis with resuscitation using albumin. She presents today for semielective paracentesis in the setting of increasing dyspnea and exercise intolerance. She provided informed consent for the procedure. Findings: 5.5 liters straw colored ascites Procedure Description: I started by performing a limited ultrasound of the abdomen to identify appropriate site for paracentesis. Next, I selected the left lower quadrant as the ideal site for paracentesis. I then prepped and draped the abdomen. Next, using ultrasound guidance, I anesthetized the skin with 1% lidocaine with epinephrine. I used the ultrasound to guide the needle down to the peritoneal level which was also anesthetized. I then made a small incision in the skin with a 11 blade scalpel. Next, I advanced the 5 Macedonian paracentesis needle and catheter through the incision and into the peritoneal cavity under the direct vision of the ultrasound. I aspirated straw-colored appearing ascites. Next, I gently advance the catheter and remove the needle. I affixed drainage tubing, and began draining the ascites with the assistance of Vacutainer's. I drained 5.5 L of ascites. As the flow decreased, I assisted the patient to the left lateral decubitus position to improve drainage. Once the ascites stopped flowing, I removed the catheter and used a 2-0 Prolene stitch in a [id number] fashion and a Band-Aid to close and dressed the wound.
== END 2022-05-27 10:52 | disposition home or self-care (01) ==
PROVIDERS: PCP Family Medicine; Visit Provider Surgery
PROC: 0W9G3ZZ Drainage of Peritoneal Cavity, Percutaneous Approach (ICD-10-PCS; CPT 49082; principal; 2022-05-27 08:30)
DX: R18.8 Other ascites (principal)
CPT/HCPCS: 49082; 96365

== ENCOUNTER 2022-05-27 08:08 | Outpatient (CLI) | payer MEDICARE, MEDICAID, SELFPAY | END 2022-05-27 08:09 | disposition home or self-care (01) | LOC: DI.CARD 08:09 | PROVIDERS: PCP Family Medicine; Visit Provider Internal Medicine Cardiovascular Disease | DX: R69 Illness, unspecified (principal) | CPT/HCPCS: 93010 ==

== ENCOUNTER 2022-05-31 04:00 | Outpatient (CLI) | payer MEDICARE, SELFPAY ==
[2022-05-31 11:15] LABS: HCT 33.6 % (36.0-46.0); HGB 11.1 g/dL (11.2-15.7); MCH 31.5 pg (27.0-33.0); MCV 96 fL (80-95); MPV 9.7 fL (8.0-11.0); Platelet Count 131 10^3/uL (130-400); RBC 3.52 10^6/uL (3.93-5.22); RDW 16.7 % (11.7-14.6); RDW-SD 58.5 fL; WBC 4.21 10^3/uL (4.4-10.8)
[2022-05-31 11:24] LABS: INR 1.4 (0.9-1.1)
[2022-05-31 11:36] LABS: Ammonia 73 umol/L (11-32)
[2022-05-31 11:46] LABS: ALT 45 U/L (14-59); AST 45 U/L (15-37); Albumin 2.7 g/dL (3.4-5.0); Alkaline Phosphatase 177 U/L (46-116); Anion Gap 6.1 mmol/L (3-11); BUN 35 mg/dL (7-18); Bilirubin, Total 2.2 mg/dL (0.2-1.0); C-Reactive Protein 0.66 mg/dL (0.0-0.3); CO2 25.9 mmol/L (21.0-32.0); Calcium 8.3 mg/dL (8.5-10.1); Chloride 101 mmol/L (98-107); Estimated GFR 29.14 (mL/min/1.73m2); Glucose 107 mg/dL (74-106); Magnesium 1.9 mg/dL (1.8-2.4); NT-proBNP 2569 pg/mL (<300); Potassium 4.1 mmol/L (3.5-5.1); Sodium 133 mmol/L (136-145); Total Protein 6.2 g/dL (6.4-8.2)
== END 2022-05-31 04:01 | disposition home or self-care (01) ==
LOC: LBO 04:00
PROVIDERS: PCP Family Medicine; Visit Provider Surgery
DX: I50.9 Heart failure, unspecified (principal)
CPT/HCPCS: 36415; 80053; 85027; 82140; 83735; 83880; 85610; 86140

== ENCOUNTER 2022-05-31 11:18 | Day surgery (SDC) | payer MEDICARE, MEDICAID, SELFPAY ==
--- NOTE | 2022-05-30 22:13 | W.PM.OP ---
Date of service: 05/31/22 Time of Service: 12:30 Operative Note Operative Note DATE OF PROCEDURE: 05/31/22 PRE-OP DIAGNOSIS: Cirrhosis and heart failure POST-OP DIAGNOSIS: same PROCEDURE: Right-sided thoracentesis SURGEON: Hazel Lindsey ANESTHESIA TYPE: Local By Surgeon Refer to Anesthesia Record ESTIMATED BLOOD LOSS: 1 PATHOLOGY: none sent COMPLICATIONS: None Patient was transported to: same day Patient's condition: stable Procedure Description: REPORT OF OPERATION Operative Note Operative Note Pt is here today for thoracentesis for symptoms of shortness of breath.? Chest x-ray was reviewed prior to beginning the procedure.? Informed consent was obtained explaining risks and benefits of the procedure, including but not limited to bleeding, infection, pneumothorax, recurrence, complications of anesthesia, and other unforetold complications. ? PROCEDURE:? The patient is brought to the procedure room and placed in the seated position.? Ultrasound is used to localize the pocket on the right chest.? The area is marked and then prepped and draped in the usual sterile fashion using a ChloraPrep scrub solution.? 10 cc's of 1% Lidocaine is used to anesthetize the T10 interspace. ? The small chai is made with a #11 blade.? The needle and catheter is then inserted over the top of the rib, aspirating as it is inserted.? The needle is then removed.? The catheter is then hooked up to the Vacutainer system and 1530 cc's of straw-colored fluid is evacuated.? The catheter is removed; pressure is held.? Sterile compression dressing is applied. ? Portable chest x-ray shows no pneumothorax.? Pt is given instructions in wound care, activity, medications, and warning signs: SOB, increasing in pain, chest pain, redness or temperature- if these occur, come to ED. I did do an ultrasound of her abdomen today. She had scant fluid in the abdomen, less than 50 cc and I did not think it was worth the morbidity and mortality to attempt to do the procedure. She does have a significant amount of edema within the anterior abdominal wall. I will see her back in surgery on however 27 for repeat procedure
--- NOTE | 2022-05-30 22:13 | W.PM.DSUDISC ---
Discharge Plan Disposition Patient Disposition: HOME Condition: Good Discharge Details Reason For Visit: fluid removal Attending Provider: Hazel Lindsey Primary Care Provider: Dillon Muller [place] Meds and New Rx's Prescriptions: No Action nitroglycerin [Nitrostat] 0.4 mg tablet, sublingual 0.4 mg sublingual Q5M PRN Rx Instructions: do not exceed 3 doses per episode lactulose 20 gram/30 mL solution 30 ml PO DAILY PRN Rx Instructions: to achieve 3-4 stools/day 07/28/21 cgc spironolactone 50 mg tablet 200 mg PO DAILY Hold Instructions: Resume on 03/05/22. Rx Instructions: from [facility] [place] 01/06/22 famotidine 20 mg tablet 20 mg PO DAILY Label Comments: pt. states doesnt take acetaminophen 500 mg Tablet 1,000 mg PO Q6H PRN Xifaxan 550 mg tablet 550 mg PO BID Label Comments: TAKE ONE TABLET BY MOUTH TWICE A DAY. Pt. states she doesnt take furosemide 80 mg tablet 80 mg PO DAILY Label Comments: TAKE ONE TABLET BY MOUTH EVERY DAY simethicone [Gas Relief Extra Strength] 125 mg Tablet,Chewable 125 mg PO BID-QID PRN gabapentin 100 mg Tablet 200 mg PO DAILY hydrocortisone [Procto-Med HC] 2.5 % cream with perineal applicator 1 applic topical PRN PRN Label Comments: APPLY TWO TO FOUR TIMES PER DAY NEEDED metoprolol tartrate 50 mg tablet 1 tab PO TID Label Comments: TAKE ONE TABLET BY MOUTH EVERY 8 HOURS magnesium oxide 400 mg magnesium tablet 200 mg PO BID Discharge Instructions Additional Instructions: Scheduled for repeat para/thoro 06/14 w/ Dt. Lindsey -if you feel you need to have abdomen tap done earlier- please call office [phone] and see if we can arrange sooner. Activity:: Activity as Tolerated Remove Dressings/Wound Care:: 24 hours Shower/Bathe:: 24 hours Diet:: high protein Discharge Orders Discharge Orders: Discharge Order (Routine); Ordered 05/30/22 Ordered By: Hazel Lindsey
[2022-05-31 11:32] VITALS: BP 112/82; PULSE 80; RESP 18; TEMP 36.3; O2SAT 95
--- NOTE | 2022-05-31 12:15 | NUR.NOTE ---
1145: Dr. Lindsey aware that pt. refused having weight taken upon arrival. MD also aware that pt. is declining albumin today stating it made her left abdomen hard. Pt. also asking if saline lock in necessary if she is not having albumin because her lab draw today was difficult and she already has bruise. Nursing Note:
[2022-05-31 12:41] VITALS: BP 100/88; PULSE 78; RESP 18; TEMP 36.1; O2SAT 100
[2022-05-31] MEDS: Lidocaine 1% Multi-Dose W/EPI 1/100,000 50 ML VIAL (12:46)
[2022-05-31] MEDS: Sodium Bicarbonate 50 MEQ/50 ML VIAL (12:46)
--- NOTE | 2022-05-31 13:15 | DI.RAD_ITS ---
Exam(s) XR PORTABLE CHEST AP EXAM: XR PORTABLE CHEST AP CLINICAL HISTORY: s/p thoro TECHNIQUE: 2D digital imaging was performed. COMPARISON: CR XR CHEST 2V PA LATERAL from 11/02/2021 CR XR CHEST 2V PA LATERAL from 03/08/2022 CR XR CHEST 2V PA LATERAL from 05/20/2022 FINDINGS: LUNGS: The patient is status post thoracentesis and there has been a significant interval decrease in size of the right pleural effusion, now small. There is no evidence of pneumothorax. Left lung is clear. HEART: Normal. AORTA: Normal. BONES: Scoliosis. Soft tissues: Unremarkable. IMPRESSION: Decreased size of right pleural effusion. No pneumothorax. DATA REPOSITORY: RADIATION DOSE DELIVERED:
== END 2022-05-31 13:19 | disposition home or self-care (01) ==
PROVIDERS: PCP Family Medicine; Visit Provider Surgery
PROC: (CPT 32554; principal; 2022-05-31 11:30)
DX: I50.9 Heart failure, unspecified (principal); J91.8 Pleural effusion in other conditions classified elsewhere; K74.60 Unspecified cirrhosis of liver
CPT/HCPCS: 32554; 36415; 80053; 85027; 71045; 82140; 83735; 83880; 85610; 86140

== ENCOUNTER 2022-06-14 03:09 | Outpatient (CLI) | payer MEDICARE, MEDICAID, SELFPAY ==
[2022-06-14 10:03] LABS: HCT 34.9 % (36.0-46.0); HGB 11.5 g/dL (11.2-15.7); MCH 31.5 pg (27.0-33.0); MCV 96 fL (80-95); MPV 9.7 fL (8.0-11.0); Platelet Count 132 10^3/uL (130-400); RBC 3.65 10^6/uL (3.93-5.22); RDW 16.5 % (11.7-14.6); RDW-SD 57.9 fL; WBC 4.61 10^3/uL (4.4-10.8)
[2022-06-14 10:19] LABS: Ammonia 82 umol/L (11-32)
[2022-06-14 10:42] LABS: INR 1.4 (0.9-1.1); Prothrombin Time 13.4 sec (9.3-11.0)
[2022-06-14 10:44] LABS: ALT 45 U/L (14-59); AST 44 U/L (15-37); Albumin 2.9 g/dL (3.4-5.0); Alkaline Phosphatase 158 U/L (46-116); BUN 31 mg/dL (7-18); Bilirubin, Total 2.5 mg/dL (0.2-1.0); C-Reactive Protein 0.79 mg/dL (0.0-0.3); CREATININE 1.8 mg/dL (0.55-1.02); Chloride 100 mmol/L (98-107); Estimated GFR 32.86 (mL/min/1.73m2); Glucose 145 mg/dL (74-106); Magnesium 1.7 mg/dL (1.8-2.4); NT-proBNP 3459 pg/mL (<300); Potassium 3.8 mmol/L (3.5-5.1); Sodium 136 mmol/L (136-145); Total Protein 6.4 g/dL (6.4-8.2)
== END 2022-06-14 03:10 | disposition home or self-care (01) ==
LOC: LBO 03:09
PROVIDERS: PCP Family Medicine; Visit Provider Surgery
DX: I50.9 Heart failure, unspecified (principal); K74.69 Other cirrhosis of liver; B18.2 Chronic viral hepatitis C; I48.91 Unspecified atrial fibrillation; K76.89 Other specified diseases of liver; K76.7 Hepatorenal syndrome; E87.1 Hypo-osmolality and hyponatremia; E87.6 Hypokalemia; Z79.899 Other long term (current) drug therapy
CPT/HCPCS: 36415; 80053; 85027; 82140; 83735; 83880; 85610; 86140

== ENCOUNTER 2022-06-14 10:00 | Day surgery (SDC) | payer MEDICARE, MEDICAID, SELFPAY ==
[2022-06-14 10:05] VITALS: BP 118/82; PULSE 72; RESP 22; TEMP 36.6; O2SAT 99
[2022-06-14] MEDS: Lidocaine 1% Multi-Dose W/EPI 1/100,000 50 ML VIAL (10:56)
[2022-06-14] MEDS: Sodium Bicarbonate 50 MEQ/50 ML VIAL (10:56)
[2022-06-14 11:15] VITALS: BP 116/64; PULSE 73; RESP 20; TEMP 36.5; O2SAT 96
--- NOTE | 2022-06-14 11:29 | PDOC.DSDIS_ITS ---
Discharge Plan Disposition Patient Disposition: HOME Condition: Good Discharge Details Reason For Visit: para/martao Attending Provider: Hazel Lindsey Primary Care Provider: Dillon Muller Home Meds and New Rx's Prescriptions: No Action nitroglycerin [Nitrostat] 0.4 mg tablet, sublingual 0.4 mg sublingual Q5M PRN Rx Instructions: do not exceed 3 doses per episode lactulose 20 gram/30 mL solution 30 ml PO DAILY PRN Rx Instructions: to achieve 3-4 stools/day 07/28/21 cgc spironolactone 50 mg tablet 200 mg PO DAILY Hold Instructions: Resume on 03/05/22. Rx Instructions: from [facility] [place] hepatology note 01/06/22 famotidine 20 mg tablet 20 mg PO DAILY Label Comments: pt. states doesnt take acetaminophen 500 mg Tablet 1,000 mg PO Q6H PRN Xifaxan 550 mg tablet 550 mg PO BID Label Comments: TAKE ONE TABLET BY MOUTH TWICE A DAY. Pt. states she doesnt take furosemide 80 mg tablet 80 mg PO DAILY Label Comments: TAKE ONE TABLET BY MOUTH EVERY DAY simethicone [Gas Relief Extra Strength] 125 mg Tablet,Chewable 125 mg PO BID-QID PRN gabapentin 100 mg Tablet 200 mg PO DAILY hydrocortisone [Procto-Med HC] 2.5 % cream with perineal applicator 1 applic topical PRN PRN Label Comments: APPLY TWO TO FOUR TIMES PER DAY NEEDED metoprolol tartrate 50 mg tablet 1 tab PO TID Label Comments: TAKE ONE TABLET BY MOUTH EVERY 8 HOURS magnesium oxide 400 mg magnesium tablet 200 mg PO BID Discharge Instructions Additional Instructions: repeat on 06/28 Activity:: regular activity in am Remove Dressings/Wound Care:: 24 hours Shower/Bathe:: 24 hours Diet:: high protein/low Na Discharge Orders Discharge Orders: Discharge Order (Routine); Ordered 06/13/22 Ordered By: Hazel Lindsey
[2022-06-14] MEDS: ALBUMIN HUMAN 25 GM/100 ML BTL IVPB (11:47)
[2022-06-14] MEDS: Normal Saline Flush 10 ML SYR (12:22)
--- NOTE | 2022-06-14 23:52 | W.PM.OP ---
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 Chest x-ray was reviewed prior to beginning the procedure.? Informed consent was obtained explaining risks and benefits of the procedure, including but not limited to bleeding, infection, pneumothorax, recurrence, complications of anesthesia, and other unforetold complications. ? PROCEDURE:? The patient is brought to the procedure room and placed in the seated position.? Ultrasound is used to localize the pocket on the right chest.? The area is marked and then prepped and draped in the usual sterile fashion using a ChloraPrep scrub solution.? 10 cc's of 1% Lidocaine is used to anesthetize the T10 interspace. ? The small chai is made with a #11 blade.? The needle and catheter is then inserted over the top of the rib, aspirating as it is inserted.? The needle is then removed.? The catheter is then hooked up to the Vacutainer system and 2500 cc's of straw-colored fluid is evacuated.? The catheter is removed; pressure is held.? Sterile compression dressing is applied. ? Ultrasound shows normal lung slide at the apex. The patient is brought to the procedure room and placed in the supine position.? Placement chosen on top in the right upper quadrant.? A time-out is done.? Ultrasound is used to localize the pocket.? The area is prepped and draped in the usual sterile fashion using a ChloraPrep scrub solution.? 10 cc's of 1% Lidocaine with epinephrine is used for local anesthetization.? The abdomen is punctured and the catheter is inserted.? 2 liters of light yellow fluid is evacuated today.? The catheter is removed. A stitch of 5-0 Prolene is placed. Old sutures are removed.? Pressure dressing is applied.? The patient tolerated the procedure well without complication. Patient will receive 2 aliquots of albumin today. Pt is given instructions in wound care, activity, medications, and warning signs: SOB, increasing in pain, chest pain, redness or temperature- if these occur, come to ED. She will follow-up in 2 weeks time for repeat procedure. She has an ultrasound scheduled for June. She also has a follow-up appointment with cardiology scheduled for June.
== END 2022-06-14 12:31 | disposition home or self-care (01) ==
PROVIDERS: PCP Family Medicine; Visit Provider Surgery
PROC: (CPT 32554; principal; 2022-06-14 10:15)
PROC: 0W9G3ZZ Drainage of Peritoneal Cavity, Percutaneous Approach (ICD-10-PCS; CPT 49082; 2022-06-14 10:15)
DX: R18.8 Other ascites (principal); K74.69 Other cirrhosis of liver; J91.8 Pleural effusion in other conditions classified elsewhere
CPT/HCPCS: 32554; 49082; 36415; 80053; 85027; 96365; 82140; 83735; 83880; 85610; 86140

== ENCOUNTER → 2022-06-15 02:19 | Outpatient (CLI) | payer MEDICARE, MEDICAID, SELFPAY ==
--- NOTE | 2022-06-15 06:45 | DI.US_ITS ---
Exam(s) US ABDOMEN LIMITED EXAM: US ABDOMEN LIMITED CLINICAL HISTORY: chronic HepC/cirrhosis,surveliance for HCC,b18.2,k74.60 TECHNIQUE: Ultrasound performed using standard protocol. COMPARISON: No exams were available for comparison FINDINGS: Note is made of a right pleural effusion. Liver is small with multiple apparent cysts and a nodular appearance consistent with cirrhosis. Port al venous flow is hepatopetal. Pancreas is grossly unremarkable. Note is made of cholelithiasis without evidence of gallbladder wall thickening or pericholecystic flu id collection. No biliary dilatation seen. Negative sonographic Quintero sign. Appearance of the right kidney is unremarkable with no hydronephrosis or nephrolithiasis. IMPRESSION: Hepatic cirrhosis without evidence of a focal hepatic mass. Cholelithiasis noted. DATA REPOSITORY:
== END ==
PROVIDERS: PCP Family Medicine; Visit Provider Surgery
DX: B18.2 Chronic viral hepatitis C (principal); G93.49 Other encephalopathy; I10 Essential (primary) hypertension; I42.9 Cardiomyopathy, unspecified; I48.0 Paroxysmal atrial fibrillation; I50.32 Chronic diastolic (congestive) heart failure; I50.9 Heart failure, unspecified; J90 Pleural effusion, not elsewhere classified; R18.8 Other ascites; K76.0 Fatty (change of) liver, not elsewhere classified; K80.20 Calculus of gallbladder without cholecystitis without obstruction
CPT/HCPCS: 76705

== ENCOUNTER 2022-06-16 14:45 | Emergency (ER) | payer MEDICARE, MEDICAID, SELFPAY ==
[2022-06-16 14:58] VITALS: BP 104/67; PULSE 80; RESP 16; TEMP 36.6; O2SAT 100
[2022-06-16 15:26] VITALS: BP 119/73; PULSE 75; PULSE 79; RESP 13
[2022-06-16 15:40] VITALS: PULSE 86; RESP 12
[2022-06-16 15:54] VITALS: BP 98/67; PULSE 80; PULSE 91; RESP 15
--- NOTE | 2022-06-16 16:05 | W.ED.GENAD ---
Discharge Plan Disposition Patient Disposition: HOME Condition: Stable Discharge Details Clinical Impression: Abdominal ascites Primary Care Provider: Dillon Muller ED Provider: Mauricio Leiva Home Meds and New Rx's Prescriptions: Continued nitroglycerin [Nitrostat] 0.4 mg tablet, sublingual 0.4 mg sublingual Q5M PRN Rx Instructions: do not exceed 3 doses per episode lactulose 20 gram/30 mL solution 30 ml PO DAILY PRN Rx Instructions: to achieve 3-4 stools/day 07/28/21 cgc spironolactone 50 mg tablet 200 mg PO DAILY Hold Instructions: Resume on 03/05/22. Rx Instructions: from [facility] [place] hepatology note 01/06/22 acetaminophen 500 mg Tablet 1,000 mg PO Q6H PRN Xifaxan 550 mg tablet 550 mg PO BID Label Comments: TAKE ONE TABLET BY MOUTH TWICE A DAY. Pt. states she doesnt take furosemide 80 mg tablet 80 mg PO DAILY Label Comments: TAKE ONE TABLET BY MOUTH EVERY DAY gabapentin 100 mg Tablet 200 mg PO DAILY PRN hydrocortisone [Procto-Med HC] 2.5 % cream with perineal applicator 1 applic topical PRN PRN Label Comments: APPLY TWO TO FOUR TIMES PER DAY NEEDED metoprolol tartrate 50 mg tablet 1 tab PO TID Label Comments: TAKE ONE TABLET BY MOUTH EVERY 8 HOURS magnesium oxide 400 mg magnesium tablet 200 mg PO BID Discharge Instructions Additional Instructions: Please follow-up with Dr. Lindsey and your gastroenterology specialist at [facility] [place]. Please contact your primary care physician to arrange follow-up. Return to the ER immediately for any worsening or new concerning symptoms. Referrals: Dillon Muller DO [Primary Care Provider] - Hazel Lindsey DO [OSTEOPATHIC DOCTOR] - Medical Decision Making 57-year-old female with history of alcoholic cirrhosis and recurrent ascites requiring paracentesis, here 2 days post outpatient paracentesis complaining of persistent abdominal distention and requesting additional paracentesis. Patient is saturating well in no respiratory distress. She does have abdominal fullness but is nontender with no fever. Emergent paracentesis is not indicated. I called and spoke with patient's treating general surgeon, Dr. Lindsey, who performed paracentesis 2 days ago. She notes patient should not have additional paracentesis performed today as there is concern for excessive protein depletion. It has been recommended by gastroenterology that paracentesis performed every 2 weeks. She recommends patient call clinic to schedule follow-up. Plan was discussed with the patient and usual customary discharge instructions were reviewed. HPI General Mode of arrival: ambulatory. Date/Time Provider Initiated Documentation: 06/16/22 14:49. Limitations to Documentation: no limitations. Information obtained by: patient. HPI Narrative: 57-year-old female with history of cirrhosis and abdominal ascites requiring frequent paracentesis as well as pleural effusions requiring thoracentesis, here with abdominal distention. Patient had a scheduled outpatient paracentesis performed 2 days ago. She notes approximately 2 L were removed. She is now requesting additional fluid removal noting feeling of shortness of breath. Patient states her abdominal distention is moderate with no modifiers. She states it feels full on the right side of her abdomen. She has no associated fever. Related Data Home Medications Medication Instructions Recorded Confirmed nitroglycerin 0.4 mg sublingual 0.4 mg sublingual Q5M PRN 04/05/21 06/16/22 tablet (Nitrostat) lactulose 20 gram/30 mL oral 30 ml PO DAILY PRN 07/29/21 06/16/22 solution acetaminophen 500 mg tablet 1,000 mg PO Q6H PRN 10/05/21 06/16/22 rifaximin 550 mg tablet (Xifaxan) 550 mg PO BID 11/16/21 06/16/22 furosemide 80 mg tablet 80 mg PO DAILY 12/24/21 06/16/22 spironolactone 50 mg tablet 200 mg PO DAILY 01/06/22 06/16/22 gabapentin 100 mg tablet 200 mg PO DAILY PRN 02/18/22 06/16/22 hydrocortisone 2.5 % topical cream 1 applic topical PRN PRN 03/29/22 06/16/22 with perineal applicator (Procto-Med ) metoprolol tartrate 50 mg tablet 1 tab PO TID 03/29/22 06/16/22 magnesium oxide 200 mg PO BID 05/31/22 06/16/22 Allergies Allergy/AdvReac Type Severity Reaction Status Date / Time amphetamine aspartate Allergy Severe Facial Verified 06/16/22 15:03 [From Adderall] Swelling, Blisters, Tongue Swelling, Rash, amphetamine sulfate Allergy Severe Facial Verified 06/16/22 15:03 [From Adderall] Swelling, Blisters, Tongue Swelling, Rash, dextroamphetamine saccharate Allergy Severe Facial Verified 06/16/22 15:03 [From Adderall] Swelling, Blisters, Tongue Swelling, Rash, dextroamphetamine sulfate Allergy Severe Facial Verified 06/16/22 15:03 [From Adderall] Swelling, Blisters, Tongue Swelling, Rash, Penicillins Allergy Intermediate Hives, Verified 06/16/22 15:03 Rash, Tongue Swelling codeine AdvReac Mild Constipatio Verified 06/16/22 15:03 n General Stated Complaint: Abd Prob JOE: 3 Review of Systems All systems reviewed & are unremarkable except as noted in HPI and below Constitutional Constitutional: Denies fever(s) Gastrointestinal Gastrointestinal: Reports as per HPI and Denies abdominal pain PFSH All Active Problems Abdominal ascites (Acute) Pleural effusion associated with hepatic disorder (Acute) Tense ascites (Acute) Hypertension (Chronic ~02/2022) 03/17/[address] [facility] [place] Cardiology Other ascites (Acute ~01/2022) 02/09/[address] [facility] [place] GI, weekly thoracentesis PAF (paroxysmal atrial fibrillation) (Acute) 02/09/[address] [facility] [place] Cardiology, ZIO Patch placed Chronic heart failure with preserved ejection fraction (Acute) 02/09/[address] [facility] [place] Cardiology Encephalopathy chronic (Acute) Cardiomyopathy (Active 04/22/13) Congestive heart failure (Acute 04/22/13) Pleural effusion (Acute 04/22/13) History of gallstones (Active) Depressive disorder (Active) Anxiety (Active) Adult attention deficit hyperactivity disorder (Active) Constipation (Active) Irritable colon (Active) Smoking history (Active) History of surgery (Active) Uterine ablation approxinmately 2006 Two sections. Chronic hepatitis C (Chronic) Treated and cured, relapsed 02/2021 completed 24 wks Harvoni and ribavirin per note 05/05/22 CKD (chronic kidney disease) stage 4, GFR 15-29 ml/min (Acute) Atrial fibrillation with controlled ventricular rate (Acute) Advanced hepatic cirrhosis (Chronic) Hep C & ETOH Nephrotic syndrome (Acute) Hypokalemia (Acute) Prerenal azotemia (Acute) Cirrhosis of liver with ascites (Acute) 11/10/[address] [facility] [place] G[facility] Hypokalemia due to excessive renal loss of potassium (Acute) Hydrothorax (Acute) 03/31/[address] [facility] [place] Gastro 02/09/[address] [facility] [place] GI Hepatic encephalopathy (Acute) 03/31/[address] [facility] [place] [facility] Seasonal allergic rhinitis (Acute) 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) (Acute) Per [facility] [place] G[facility] note from 05/11/21 Abdominal ascites (Acute) Medical History Anxiety Attention deficit hyperactivity disorder, combined type 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 History of abdominal paracentesis Irritable colon Renal failure syndrome SVT (supraventricular tachycardia) Surgical History section x2 History of ileal conduit History of thoracentesis (~12/28/21) 08/03/20,08/10/20 08/21/20,08/31/20 Hx of tubal ligation S/P abdominal paracentesis (~12/28/21) Family History Mother Hypertensive disorder, systemic arterial Cancer Cervical Father Hypertensive disorder, systemic arterial Maternal Grandfather Diabetes Maternal Grandmother Cancer Ovarian Social History Smoking/Tobacco Use Status: Former Tobacco Use Quit Date: 09/18/18 Smoking risk assessment performed?: Yes Alcohol Intake: former Drug use: Never Substance use type: does not use Adopted: No Caregiver/Support person: No Foster care: No Household members: family Housing: house Number of Children: 4 number of grandchildren: 2 Communication Needs: None Do you need help understanding health information?: Often current occupation: Used to work for [employer] Current gender identity: female What is your relationship status?: How often do you talk on the phone with friends or family?: three or more times per week Panel score (0-1 are the most socially isolated patients): 2 What type of physical activity do you participate in: none Seatbelt use: always Drive intox or ride w/intox customer service driver: No Working smoke detector in home: Yes Fire extinguisher in home: Yes Carbon monox detector in home: Yes Do you feel safe at home: Yes Do you feel safe in your relationship?: Yes Exam Const General: cooperative and no acute distress HENMT Mouth: moist mucous membranes Eyes Sclera: scleral abnormality bilaterally (icterus) Neck Neck: trachea midline Resp Effort & Inspection: normal respiratory effort, not labored and not tachypneic Auscultation: clear to auscultation bilaterally, no rales, no rhonchi and no wheezes Cardio Rate: regular rate and not tachycardic Rhythm: regular rhythm GI Inspection: other (Abdominal fullness) Palpation: soft, not firm, no guarding, no masses, not rigid and nontender Skin General skin exam: no rashes or lesions noted Neuro General: patient alert, patient awake and tone normal Course Vital Signs Vital signs: Vital Signs Temperature 36.6 C 06/16/22 14:58 Pulse 80 06/16/22 14:58 Respiratory Rate 16 06/16/22 14:58 Blood Pressure 104/67 06/16/22 14:58 Pulse Oximetry 100 06/16/22 14:58 Temperature 36.6 C 06/16/22 14:58 Temperature Source Tympanic 06/16/22 14:58 Pulse 80 06/16/22 15:54 Pulse 91 H 06/16/22 15:54 Respiratory Rate 15 06/16/22 15:54 Respiratory Effort Incrsd Work of Breathing 06/16/22 15:06 Blood Pressure 98/67 L 06/16/22 15:54 Blood Pressure Mean 73 06/16/22 15:54 Blood Pressure Position Sitting 06/16/22 14:58 Pulse Oximetry 100 06/16/22 14:58 Oxygen Delivery Method Room Air 06/16/22 14:58 Oxygen Flow Rate 0 06/16/22 14:58 Pain Level 8 06/16/22 14:58
[2022-06-16 16:11] VITALS: BP 98/67; PULSE 80; RESP 15
== END 2022-06-16 16:08 | disposition home or self-care (01) ==
PROVIDERS: Emergency Provider Student in an Organized Health Care Education/Training Program; PCP Family Medicine
DX: R18.8 Other ascites (principal); Z87.891 Personal history of nicotine dependence; Z87.19 Personal history of other diseases of the digestive system
CPT/HCPCS: 99281; 99282

== ENCOUNTER 2022-06-20 15:38 | Emergency (ER) | payer MEDICARE, MEDICAID, SELFPAY ==
[2022-06-20 15:41] VITALS: BP 108/70; PULSE 78; RESP 18; TEMP 36.8; O2SAT 100
--- NOTE | 2022-06-20 15:45 | DI.RAD_ITS ---
Exam(s) XR ABD FLAT UPRIGHT PA CHEST CLINICAL HISTORY: Ascites, Abd swelling. COMPARISON: CR XR CHEST 2V PA LATERAL from 05/20/2022 CR XR PORTABLE CHEST AP from 05/31/2022 FINDINGS: LUNGS: Left lung is clear. Moderate size right pleural effusion similar to the 20 May 2022 exam . Mild adjacent compressive atelectasis. HEART: Normal. MEDIASTINUM: Normal. BOWEL GAS PATTERN: Nondistended bowel loops. Air-fluid level right upper quadrant consistent with ga s in colon. No dilated small bowel loops. ABNORMAL COLLECTIONS OF AIR: No abnormal collection of air. No pneumoperitoneum. CALCIFICATIONS: Right upper quadrant calcification consistent with gallstone. OTHER FINDINGS: Scoliosis and degenerative changes in the spine IMPRESSION: 1. Nonobstructive bowel gas pattern. 2. Moderate right pleural effusion.
--- NOTE | 2022-06-20 15:59 | W.ED.GENAD ---
Discharge Plan Disposition Patient Disposition: HOME Condition: Improving Discharge Details Clinical Impression: Abdominal ascites, S/P abdominal paracentesis Primary Care Provider: Dillon Muller ED Provider: Lila Enriquez Home Meds and New Rx's Prescriptions: Continued nitroglycerin [Nitrostat] 0.4 mg tablet, sublingual 0.4 mg sublingual Q5M PRN Rx Instructions: do not exceed 3 doses per episode lactulose 20 gram/30 mL solution 30 ml PO DAILY PRN Rx Instructions: to achieve 3-4 stools/day 07/28/21 cgc spironolactone 50 mg tablet 200 mg PO DAILY Hold Instructions: Resume on 03/05/22. Rx Instructions: from [facility] [place] hepatology note 01/06/22 acetaminophen 500 mg Tablet 1,000 mg PO Q6H PRN Xifaxan 550 mg tablet 550 mg PO BID Label Comments: TAKE ONE TABLET BY MOUTH TWICE A DAY. Pt. states she doesnt take furosemide 80 mg tablet 80 mg PO DAILY Label Comments: TAKE ONE TABLET BY MOUTH EVERY DAY gabapentin 100 mg Tablet 200 mg PO DAILY PRN hydrocortisone [Procto-Med HC] 2.5 % cream with perineal applicator 1 applic topical PRN PRN Label Comments: APPLY TWO TO FOUR TIMES PER DAY NEEDED metoprolol tartrate 50 mg tablet 1 tab PO TID Label Comments: TAKE ONE TABLET BY MOUTH EVERY 8 HOURS magnesium oxide 400 mg magnesium tablet 200 mg PO BID Discharge Instructions Instructions: Ascites (ED), Paracentesis (DC) Additional Instructions: Please follow up with general surgery as previously scheduled in 2-3 weeks if needed. Follow up with primary care provider in 3-5 days. Return to ED sooner if any worsening or concerns. Increase oral fluids. 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 She was last drained on 06-14-22 which was 6 days ago. XR abd series ordered and CBC, CMP. 1609: Spoke with Dr. Del Toro director of retention surgeon who was not aware of patient presenting to the ED, he agrees to come in and speak with patient after his current case in the OR. 165: According to Dr. Lindsey GI only wants the patient to have paracentesis every 2-3 weeks, she recommends checking a ammonia level. She states that she does not need any emergent paracentesis at this time. 1747: Dr. Del Toro here at BS to speak with patient. 1808: Dr. Del Toro at for paracentesis, supplies given and patient consented by Dr. Del Toro. 1831: [address] Del Toro, patient is declining albumin infusion, according to Dr. Del Toro patient is safe to be discharged home at this point. Patient discharged with instructions to follow-up with general surgery. This text was generated using etouchesation system, please disregard any oddities of phrase or misspellings. Medical Records Medical records reviewed: Yes I reviewed the patient's medical records. Lab Data Lab results reviewed: Yes I reviewed the patient's lab results. Labs: Laboratory Tests Range/Units 06/20/22 06/20/22 06/20/22 16:13 16:13 17:04 WBC (4.4-10.8) 10^3/uL 5.44 RBC (3.93-5.22) 10^6/uL 3.62 L Hgb (11.2-15.7) g/dL 11.3 Hct (36.0-46.0) % 35.0 L MCV (80-95) fL 97 H MCH (27.0-33.0) pg 31.2 MCHC (32.0-36.0) % 32.3 RDW (11.7-14.6) % 16.7 H Plt Count (130-400) 10^3/uL 127 L MPV (8.0-11.0) fL 10.3 Immature Gran % 0.4 Neutrophils % 53.1 Lymphocytes % 22.2 Monocytes % 19.3 Eosinophils % 3.9 Basophils % 1.1 Nucleated RBC % (0.0-0.3) % 0.0 Absolute Neutrophils (1.2-6.7) 10^3/uL 2.89 Absolute Lymphocytes (1.2-3.4) 10^3/uL 1.21 Absolute Monocytes (0.1-0.8) 10^3/uL 1.05 H Absolute Eosinophils (0.0-0.7) 10^3/uL 0.21 Absolute Basophils (0.0-0.2) 10^3/uL 0.06 Sodium (136-145) mmol/L 138 Potassium (3.5-5.1) mmol/L 3.7 Chloride (98-107) mmol/L 103 Carbon Dioxide (21.0-32.0) mmol/L 29.5 Anion Gap (3-11) mmol/L 5.5 BUN (7-18) mg/dL 28 H Creatinine (0.55-1.02) mg/dL 1.6 H Est GFR (CKD-EPI 2020) (mL/min/1.73m2) 37.85 Glucose (74-106) mg/dL 75 Calcium (8.5-10.1) mg/dL 8.7 Total Bilirubin (0.2-1.0) mg/dL 2.0 H AST (15-37) U/L 40 H ALT (14-59) U/L 39 Alkaline Phosphatase (46-116) U/L 167 H Ammonia (11-32) umol/L 109 H Total Protein (6.4-8.2) g/dL 6.2 L Albumin (3.4-5.0) g/dL 2.7 L HPI General Mode of arrival: ambulatory. Date/Time Provider Initiated Documentation: 06/20/22 15:39. Limitations to Documentation: no limitations. Information obtained by: patient, RN notes reviewed and old records reviewed. 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 She was last drained on 06-14-22 which was 6 days ago. She states she was told to present to ED by surgery this am. Denies fever, vomiting, diarrhea or any other complaints. Related Data Home Medications Medication Instructions Recorded Confirmed nitroglycerin 0.4 mg sublingual 0.4 mg sublingual Q5M PRN 04/05/21 06/20/22 tablet (Nitrostat) lactulose 20 gram/30 mL oral 30 ml PO DAILY PRN 07/29/21 06/20/22 solution acetaminophen 500 mg tablet 1,000 mg PO Q6H PRN 10/05/21 06/20/22 rifaximin 550 mg tablet (Xifaxan) 550 mg PO BID 11/16/21 06/20/22 furosemide 80 mg tablet 80 mg PO DAILY 12/24/21 06/20/22 spironolactone 50 mg tablet 200 mg PO DAILY 01/06/22 06/20/22 gabapentin 100 mg tablet 200 mg PO DAILY PRN 02/18/22 06/20/22 hydrocortisone 2.5 % topical cream 1 applic topical PRN PRN 03/29/22 06/20/22 with perineal applicator (Procto-Med HC) metoprolol tartrate 50 mg tablet 1 tab PO TID 03/29/22 06/20/22 magnesium oxide 200 mg PO BID 05/31/22 06/20/22 Allergies Allergy/AdvReac Type Severity Reaction Status Date / Time amphetamine aspartate Allergy Severe Facial Verified 06/20/22 15:43 [From Adderall] Swelling, Blisters, Tongue Swelling, Rash, amphetamine sulfate Allergy Severe Facial Verified 06/20/22 15:43 [From Adderall] Swelling, Blisters, Tongue Swelling, Rash, dextroamphetamine saccharate Allergy Severe Facial Verified 06/20/22 15:43 [From Adderall] Swelling, Blisters, Tongue Swelling, Rash, dextroamphetamine sulfate Allergy Severe Facial Verified 06/20/22 15:43 [From Adderall] Swelling, Blisters, Tongue Swelling, Rash, Penicillins Allergy Intermediate Hives, Verified 06/20/22 15:43 Rash, Tongue Swelling codeine AdvReac Mild Constipatio Verified 06/20/22 15:43 n General Stated Complaint: Abd Prob JOE: 3 Review of Systems All systems reviewed & are unremarkable except as noted in HPI and below PFSH All Active Problems (Updated 06/20/22 @ 18:34 by Lila Enriquez NP) Abdominal ascites (Acute) Abdominal ascites (Acute) S/P abdominal paracentesis (Acute) Tense ascites (Acute) Hypertension (Chronic ~02/2022) 03/17/22 [facility] Cardiology Other ascites (Acute ~01/2022) 02/09/22 [facility] GI, weekly thoracentesis PAF (paroxysmal atrial fibrillation) (Acute) 02/09/22 [facility] [place] Cardiology, ZIO Patch placed Chronic heart failure with preserved ejection fraction (Acute) 02/09/22 [facility] [place] Cardiology Encephalopathy chronic (Acute) Cardiomyopathy (Active 04/22/13) Congestive heart failure (Acute 04/22/13) Pleural effusion (Acute 04/22/13) History of gallstones (Active) Depressive disorder (Active) Anxiety (Active) Adult attention deficit hyperactivity disorder (Active) Constipation (Active) Irritable colon (Active) Smoking history (Active) History of surgery (Active) Uterine ablation approxinmately 2006 Two sections. Chronic hepatitis C (Chronic) Treated and cured, relapsed 02/2021 completed 24 wks Harvoni and ribavirin per note 05/05/22 CKD (chronic kidney disease) stage 4, GFR 15-29 ml/min (Acute) Atrial fibrillation with controlled ventricular rate (Acute) Advanced hepatic cirrhosis (Chronic) Hep C & ETOH Nephrotic syndrome (Acute) Hypokalemia (Acute) Prerenal azotemia (Acute) Cirrhosis of liver with ascites (Acute) 11/10/21 Telehealth [facility] [place] Gastro Hypokalemia due to excessive renal loss of potassium (Acute) Hydrothorax (Acute) 03/31/21 [facility] [place] Gastro 02/09/22 [facility] GI Hepatic encephalopathy (Acute) 03/31/21 telehealth [facility] [place] Gastro Seasonal allergic rhinitis (Acute) 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) (Acute) Per [facility] Gastro note from 05/11/21 Abdominal ascites (Acute) Medical History Anxiety Attention deficit hyperactivity disorder, combined type 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 History of abdominal paracentesis Irritable colon Renal failure syndrome SVT (supraventricular tachycardia) Surgical History section x2 History of ileal conduit History of thoracentesis (~12/28/21) 08/03/20,08/10/20 08/21/20,08/31/20 Hx of tubal ligation S/P abdominal paracentesis (~12/28/21) Family History Mother Hypertensive disorder, systemic arterial Cancer Cervical Father Hypertensive disorder, systemic arterial Maternal Grandfather Diabetes Maternal Grandmother Cancer Ovarian Social History Smoking/Tobacco Use Status: Former Tobacco Use Quit Date: 09/18/18 Smoking risk assessment performed?: Yes Alcohol Intake: former Drug use: Never Substance use type: does not use Adopted: No Caregiver/Support person: No Foster care: No Household members: family Housing: house Number of Children: 4 number of grandchildren: 2 Communication Needs: None Do you need help understanding health information?: Often current occupation: Used to work for [employer] Current gender identity: female What is your relationship status?: How often do you talk on the phone with friends or family?: three or more times per week Panel score (0-1 are the most socially isolated patients): 2 What type of physical activity do you participate in: none Seatbelt use: always Drive 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 Appears stated age. thin body habitus. Head: Normocephalic, no trauma. Eyes: Pupils PERRL, Red reflex noted, EOM's intact. Eyelids symmetrical without lesions, discharge, or swelling. ENT: Bilateral TM's WNL, External ear normal to inspection, no mastoid TTP, swelling, or erythema, Nasal turbinates WNL, no nasal discharge. Normal dentition, Posterior pharynx WNL, no exudate. Chest: RRR, Normal S1, S2, distal pulses intact. Resp: Lungs clear to auscultation bilaterally, no wheezes, rales, or rhonchi. Abdomen: Distended abdomen, intact sutures noted to the left upper quadrant no surrounding redness or induration Musculoskeletal: Normal gait, 5/5 strength to all four extremities. Skin: No suspicious rashes or lesions. Capillary refill less than 2 sec. Neurologic: Cranial nerves II-XII intact. Alert and oriented x 3. Motor: No deficits noted. Sensory: Intact bilaterally all 4 extremities. Reflexes: DTR's intact bilaterally.. Hematologic/Lymphatic: No ecchymosis, no lymphadenopathy. Course Vital Signs Vital signs: Vital Signs Temperature 36.8 C 06/20/22 15:41 Pulse 78 06/20/22 15:41 Respiratory Rate 18 06/20/22 15:41 Blood Pressure 108/70 06/20/22 15:41 Pulse Oximetry 100 06/20/22 15:41 Temperature 36.8 C 06/20/22 15:41 Temperature Source Temporal Artery Scan 06/20/22 15:41 Pulse 78 06/20/22 15:41 Respiratory Rate 18 06/20/22 15:41 Respiratory Effort Non-Labored 06/20/22 15:44 Blood Pressure 108/70 06/20/22 15:41 Blood Pressure Position Sitting 06/20/22 15:41 Pulse Oximetry 100 06/20/22 15:41 Oxygen Delivery Method Room Air 06/20/22 15:41 Oxygen Flow Rate 0 06/20/22 15:41
[2022-06-20 16:44] LABS: Abs Immature Grans 0.02 10^3/uL (0.0-0.06); Absolute Basophil Count 0.06 10^3/uL (0.0-0.2); Absolute Eosinophil Count 0.21 10^3/uL (0.0-0.7); Absolute Lymphocyte Count 1.21 10^3/uL (1.2-3.4); Absolute Monocyte Count 1.05 10^3/uL (0.1-0.8); Absolute Neutrophil Count 2.89 10^3/uL (1.2-6.7); Basophils % 1.1; Eosinophils % 3.9; HGB 11.3 g/dL (11.2-15.7); Immature Grans % 0.4; Lymphocytes % 22.2; MCH 31.2 pg (27.0-33.0); MCHC 32.3 % (32.0-36.0); MCV 97 fL (80-95); MPV 10.3 fL (8.0-11.0); Monocytes % 19.3; Neutrophils % 53.1; Platelet Count 127 10^3/uL (130-400); RBC 3.62 10^6/uL (3.93-5.22); RDW 16.7 % (11.7-14.6); RDW-SD 59.1 fL; WBC 5.44 10^3/uL (4.4-10.8)
[2022-06-20 17:18] LABS: Ammonia 109 umol/L (11-32)
[2022-06-20 17:39] LABS: ALT 39 U/L (14-59); AST 40 U/L (15-37); Albumin 2.7 g/dL (3.4-5.0); Alkaline Phosphatase 167 U/L (46-116); Anion Gap 5.5 mmol/L (3-11); BUN 28 mg/dL (7-18); CO2 29.5 mmol/L (21.0-32.0); CREATININE 1.6 mg/dL (0.55-1.02); Calcium 8.7 mg/dL (8.5-10.1); Chloride 103 mmol/L (98-107); Estimated GFR 37.85 (mL/min/1.73m2); Glucose 75 mg/dL (74-106); Potassium 3.7 mmol/L (3.5-5.1); Sodium 138 mmol/L (136-145); Total Protein 6.2 g/dL (6.4-8.2)
[2022-06-20 18:39] VITALS: BP 109/77; PULSE 70; RESP 20; TEMP 36.7; O2SAT 97
--- NOTE | 2022-06-20 18:39 | W.PROCNOTE ---
Date of service: 06/20/22 Time of Service: 18:39 Procedure Note Date of procedure: 06/20/22 Procedure: Therapuetic paracentesis Surgeon/Proceduralist/Physician: Wing Del Toro Procedure Diagnosis: Tense ascites Procedure Description: I started by performing a limited ultrasound of the abdomen to identify appropriate site for paracentesis. Next, I selected the right midabdomen as the ideal site for paracentesis. I then prepped and draped the abdomen. Next, using ultrasound guidance, I anesthetized the skin with 1% lidocaine with epinephrine. I used the ultrasound to guide the needle down to the peritoneal level which was also anesthetized. I then made a small incision in the skin with a 11 blade scalpel. Next, I advanced the 5 Tamazight paracentesis needle and catheter through the incision and into the peritoneal cavity under the direct vision of the ultrasound. I aspirated straw appearing ascites. Next, I gently advance the catheter and remove the needle. I affixed drainage tubing, and began draining the ascites with the assistance of Vacutainer's. I drained 5300 ml of ascites. As the flow decreased, I assisted the patient to the right lateral decubitus position to improve drainage. Once the ascites stopped flowing, I removed the catheter and used a bandaid to dress the wound.
== END 2022-06-20 18:42 | disposition home or self-care (01) ==
PROVIDERS: Emergency Provider Registered Nurse Emergency; PCP Family Medicine
DX: R18.8 Other ascites (principal); Z87.891 Personal history of nicotine dependence; Z87.19 Personal history of other diseases of the digestive system
CPT/HCPCS: 80053; 99283; 74022; 82140; 85025

== ENCOUNTER 2022-06-23 08:24 | Outpatient (CLI) | payer MEDICARE, MEDICAID, SELFPAY ==
--- NOTE | 2022-06-23 08:15 | RT.EKG_ITS ---
APPROVED REPORT Exam: Resting ECG Reason for Exam: NPW, Baseline needed Patient Location: O HR:106 bpm ECG Measurements Heart Rate 106 AXIS SD [id number] P [id number] QRSd 98 QRS 105 QT 400 T -26 QTc 532 Conclusion Atrial fibrillation...V-rate 75- 81, irreg A-activity Right axis deviation...QRS axis (100,269) Low voltage, extremity and precordial leads...extremity<0.5mV, precordial<1.0mV Poor R wave progression
== END 2022-06-23 08:25 | disposition home or self-care (01) ==
LOC: DI.CARD 08:25
PROVIDERS: PCP Family Medicine; Visit Provider Internal Medicine Cardiovascular Disease
DX: I10 Essential (primary) hypertension (principal); I48.0 Paroxysmal atrial fibrillation; I48.91 Unspecified atrial fibrillation; I50.32 Chronic diastolic (congestive) heart failure
CPT/HCPCS: 93010

== ENCOUNTER → 2022-06-23 08:55 | Outpatient (BNVA) | payer MEDICARE, MEDICAID, SELFPAY | PROVIDERS: PCP Family Medicine; Referring Provider Family Medicine; Visit Provider Internal Medicine Cardiovascular Disease | DX: I48.21 Permanent atrial fibrillation (principal); I12.9 Hypertensive chronic kidney disease with stage 1 through stage 4 chronic kidney disease, or unspecified chronic kidney disease; I42.9 Cardiomyopathy, unspecified; R18.8 Other ascites; N18.4 Chronic kidney disease, stage 4 (severe) | CPT/HCPCS: 93005; 99203; 99214 ==

== ENCOUNTER 2022-06-28 02:53 | Outpatient (CLI) | payer MEDICARE, MEDICAID, SELFPAY ==
[2022-06-28 09:28] LABS: HCT 35.1 % (36.0-46.0); HGB 11.5 g/dL (11.2-15.7); MCH 31.4 pg (27.0-33.0); MCHC 32.8 % (32.0-36.0); MCV 96 fL (80-95); Platelet Count 151 10^3/uL (130-400); RBC 3.66 10^6/uL (3.93-5.22); WBC 5.25 10^3/uL (4.4-10.8)
[2022-06-28 09:51] LABS: Ammonia 104 umol/L (11-32)
[2022-06-28 09:52] LABS: Prothrombin Time 12.4 sec (9.3-11.0)
[2022-06-28 09:54] LABS: INR 1.2 (0.9-1.1)
[2022-06-28 09:58] LABS: ALT 45 U/L (14-59); AST 44 U/L (15-37); Albumin 2.7 g/dL (3.4-5.0); Alkaline Phosphatase 174 U/L (46-116); BUN 33 mg/dL (7-18); Bilirubin, Total 2.4 mg/dL (0.2-1.0); C-Reactive Protein 1.11 mg/dL (0.0-0.3); CREATININE 1.8 mg/dL (0.55-1.02); Calcium 8.6 mg/dL (8.5-10.1); Chloride 101 mmol/L (98-107); Estimated GFR 32.86 (mL/min/1.73m2); Glucose 90 mg/dL (74-106); Magnesium 1.8 mg/dL (1.8-2.4); NT-proBNP 3191 pg/mL (<300); Potassium 4.2 mmol/L (3.5-5.1); Sodium 135 mmol/L (136-145); Total Protein 6.5 g/dL (6.4-8.2)
== END 2022-06-28 02:54 | disposition home or self-care (01) ==
LOC: LBO 02:53
PROVIDERS: PCP Family Medicine; Visit Provider Surgery
DX: I50.9 Heart failure, unspecified (principal); K74.60 Unspecified cirrhosis of liver; B18.2 Chronic viral hepatitis C; I48.91 Unspecified atrial fibrillation; K76.89 Other specified diseases of liver; K76.7 Hepatorenal syndrome; E87.1 Hypo-osmolality and hyponatremia; E87.6 Hypokalemia; Z79.899 Other long term (current) drug therapy
CPT/HCPCS: 36415; 80053; 85027; 82140; 83735; 83880; 85610; 86140

== ENCOUNTER 2022-06-28 09:25 | Day surgery (SDC) | payer MEDICARE, MEDICAID, SELFPAY ==
[2022-06-28 09:42] VITALS: BP 119/85; PULSE 86; RESP 22; TEMP 37; O2SAT 100
[2022-06-28] MEDS: Lidocaine 1.5 % Pres-Free W/EPI 1/200,000 30 ML VIAL (10:35)
[2022-06-28] MEDS: Sodium Bicarbonate 50 MEQ/50 ML VIAL (10:35)
--- NOTE | 2022-06-28 10:56 | W.PM.OP ---
Date of service: 06/28/22 Time of Service: 10:56 Operative Note Operative Note DATE OF PROCEDURE: 06/28/22 PRE-OP DIAGNOSIS: Cirrhosis PROCEDURE: Paracentesis SURGEON: Hazel Lindsey ANESTHESIA TYPE: Local By Surgeon Refer to Anesthesia Record ESTIMATED BLOOD LOSS: 0 PATHOLOGY: none sent COMPLICATIONS: None Patient was transported to: same day Patient's condition: stable Procedure Description: The patient is brought to the procedure room and placed in the supine position.? Placement chosen on top in the right upper quadrant.? A time-out is done.? Ultrasound is used to localize the pocket.? The area is prepped and draped in the usual sterile fashion using a ChloraPrep scrub solution.? 10 cc's of 1% Lidocaine with epinephrine is used for local anesthetization.? The abdomen is punctured and the catheter is inserted.? 6550 liters of light yellow fluid is evacuated today.? The catheter is removed.? Pressure dressing is applied.? The patient tolerated the procedure well without complication.
--- NOTE | 2022-06-28 10:58 | W.PM.DSUDISC ---
Discharge Plan Disposition Patient Disposition: HOME Condition: Good Discharge Details Attending Provider: Hazel Lindsey Primary Care Provider: Dillon Muller Home Meds and New Rx's Prescriptions: No Action nitroglycerin [Nitrostat] 0.4 mg tablet, sublingual 0.4 mg sublingual Q5M PRN Rx Instructions: do not exceed 3 doses per episode lactulose 20 gram/30 mL solution 30 ml PO DAILY PRN Rx Instructions: to achieve 3-4 stools/day 07/28/21 cgc spironolactone 50 mg tablet 200 mg PO DAILY Hold Instructions: Resume on 03/05/22. Rx Instructions: from [facility] [place] hepatology note 01/06/22 acetaminophen 500 mg Tablet 1,000 mg PO Q6H PRN Xifaxan 550 mg tablet 550 mg PO BID Label Comments: TAKE ONE TABLET BY MOUTH TWICE A DAY. Pt. states she doesnt take furosemide 80 mg tablet 80 mg PO DAILY Label Comments: TAKE ONE TABLET BY MOUTH EVERY DAY gabapentin 100 mg Tablet 200 mg PO DAILY PRN hydrocortisone [Procto-Med HC] 2.5 % cream with perineal applicator 1 applic topical PRN PRN Label Comments: APPLY TWO TO FOUR TIMES PER DAY NEEDED metoprolol tartrate 50 mg tablet 1 tab PO TID Label Comments: TAKE ONE TABLET BY MOUTH EVERY 8 HOURS magnesium oxide 400 mg magnesium tablet 200 mg PO BID Discharge Instructions Activity:: Activity as Tolerated Remove Dressings/Wound Care:: 24 hours Shower/Bathe:: 24 hours Diet:: high protein Discharge Orders Discharge Orders: Discharge Order (Routine); Ordered 06/28/22 Ordered By: Hazel Lindsey DS: Diagnosis Discharge Diagnosis (1) Abdominal ascites: Status: Acute (2) Advanced hepatic cirrhosis: Status: Chronic
[2022-06-28 11:07] VITALS: BP 124/93; PULSE 85; RESP 20; TEMP 37; O2SAT 94
[2022-06-28] MEDS: ALBUMIN HUMAN 25 GM/100 ML BTL IVPB ×2 (11:21→11:54)
== END 2022-06-28 12:25 | disposition home or self-care (01) ==
PROVIDERS: PCP Family Medicine; Visit Provider Surgery
PROC: 0W9G3ZZ Drainage of Peritoneal Cavity, Percutaneous Approach (ICD-10-PCS; CPT 49082; principal; 2022-06-28 09:30)
DX: R18.8 Other ascites (principal); K74.60 Unspecified cirrhosis of liver
CPT/HCPCS: 49082; 36415; 80053; 85027; 82140; 83735; 83880; 85610; 86140

== ENCOUNTER 2022-07-07 16:04 | Emergency (ER) | payer MEDICARE, MEDICAID, SELFPAY ==
[2022-07-07 16:10] VITALS: BP 122/79; PULSE 76; TEMP 36.3; O2SAT 100
[2022-07-07 17:31] LABS: Abs Immature Grans 0.02 10^3/uL (0.0-0.06); Absolute Basophil Count 0.06 10^3/uL (0.0-0.2); Absolute Eosinophil Count 0.16 10^3/uL (0.0-0.7); Absolute Lymphocyte Count 1.17 10^3/uL (1.2-3.4); Absolute Monocyte Count 1.03 10^3/uL (0.1-0.8); Absolute Neutrophil Count 2.69 10^3/uL (1.2-6.7); Basophils % 1.2; Eosinophils % 3.1; HCT 33.5 % (36.0-46.0); Immature Grans % 0.4; Lymphocytes % 22.8; MCH 31.3 pg (27.0-33.0); MCHC 32.8 % (32.0-36.0); MCV 95 fL (80-95); MPV 9.8 fL (8.0-11.0); Monocytes % 20.1; Neutrophils % 52.4; Platelet Count 119 10^3/uL (130-400); RBC 3.52 10^6/uL (3.93-5.22); RDW 16.4 % (11.7-14.6); RDW-SD 57.8 fL; WBC 5.13 10^3/uL (4.4-10.8)
[2022-07-07 18:07] LABS: ALT 43 U/L (14-59); AST 41 U/L (15-37); Albumin 2.9 g/dL (3.4-5.0); Alkaline Phosphatase 158 U/L (46-116); Anion Gap 8.5 mmol/L (3-11); BUN 30 mg/dL (7-18); Bilirubin, Total 2.1 mg/dL (0.2-1.0); CO2 25.5 mmol/L (21.0-32.0); CREATININE 1.7 mg/dL (0.55-1.02); Calcium 8.7 mg/dL (8.5-10.1); Chloride 105 mmol/L (98-107); Glucose 89 mg/dL (74-106); Potassium 4.1 mmol/L (3.5-5.1); Sodium 139 mmol/L (136-145)
--- NOTE | 2022-07-07 19:18 | W.ED.PROC ---
Date of service: 07/07/22 Time of Service: 19:18 Procedures Paracentesis Time Out Performed: Yes Local Anesthetic: Lidocaine 1% Amount of anesthesia used (mL): 4 Fluid: clear Post Procedure Exam: awake, alert, normal BP and normal HR Patient Tolerated Procedure: well Complications: none Medical Decision Making Patient seen, examined, and discussed with Janis Elvira. I agree with her assessment and plan. Patient has frequent and recurrent episodes of paracentesis for recurrent ascites. She was consented for the procedure, prepped and draped in standard sterile fashion, ultrasound guidance was used to ascertain large fluid pocket and then paracentesis was performed for approximately 4.5L. Discussed administration of albumin with the patient, which she stated she would decline.
== END 2022-07-07 19:30 | disposition home or self-care (01) ==
PROVIDERS: Emergency Provider Physician Assistant; PCP Family Medicine
DX: R18.8 Other ascites (principal)
CPT/HCPCS: 49082; 80053; 85025

== ENCOUNTER 2022-07-12 02:37 | Outpatient (CLI) | payer MEDICARE, MEDICAID, SELFPAY ==
[2022-07-12 08:43] LABS: HCT 33.3 % (36.0-46.0); HGB 11.3 g/dL (11.2-15.7); MCH 31.7 pg (27.0-33.0); MCHC 33.9 % (32.0-36.0); MCV 94 fL (80-95); MPV 9.6 fL (8.0-11.0); Platelet Count 141 10^3/uL (130-400); RBC 3.56 10^6/uL (3.93-5.22); RDW 15.9 % (11.7-14.6); RDW-SD 54.7 fL; WBC 5.62 10^3/uL (4.4-10.8)
[2022-07-12 08:57] LABS: INR 1.3 (0.9-1.1); Prothrombin Time 12.7 sec (9.3-11.0)
[2022-07-12 09:03] LABS: Ammonia 74 umol/L (11-32)
[2022-07-12 09:11] LABS: ALT 46 U/L (14-59); AST 46 U/L (15-37); Albumin 2.9 g/dL (3.4-5.0); Alkaline Phosphatase 143 U/L (46-116); Anion Gap 6.4 mmol/L (3-11); BUN 33 mg/dL (7-18); Bilirubin, Total 2.9 mg/dL (0.2-1.0); C-Reactive Protein 0.74 mg/dL (0.0-0.3); CO2 26.6 mmol/L (21.0-32.0); CREATININE 1.8 mg/dL (0.55-1.02); Calcium 8.8 mg/dL (8.5-10.1); Chloride 97 mmol/L (98-107); Estimated GFR 32.86 (mL/min/1.73m2); Glucose 91 mg/dL (74-106); Magnesium 1.6 mg/dL (1.8-2.4); NT-proBNP 3025 pg/mL (<300); Potassium 4.1 mmol/L (3.5-5.1); Sodium 130 mmol/L (136-145); Total Protein 6.2 g/dL (6.4-8.2)
== END 2022-07-12 02:38 | disposition home or self-care (01) ==
LOC: LBO 02:37
PROVIDERS: PCP Family Medicine; Visit Provider Surgery
DX: I50.9 Heart failure, unspecified (principal); B19.20 Unspecified viral hepatitis C without hepatic coma; K74.60 Unspecified cirrhosis of liver; I48.91 Unspecified atrial fibrillation; B18.2 Chronic viral hepatitis C
CPT/HCPCS: 36415; 80053; 85027; 82140; 83735; 83880; 85610; 86140

== ENCOUNTER 2022-07-12 08:39 | Day surgery (SDC) | payer MEDICARE, MEDICAID, SELFPAY ==
[2022-07-12 08:57] VITALS: BP 128/70; PULSE 92; RESP 14; TEMP 36.4; O2SAT 100
[2022-07-12] MEDS: Lidocaine 1% Pres-Free W/EPI 1/200,000 10 ML VIAL (09:47)
[2022-07-12] MEDS: Sodium Bicarbonate 50 MEQ/50 ML VIAL (09:47)
[2022-07-12 10:18] VITALS: BP 107/90; PULSE 86; RESP 18; TEMP 36.5; O2SAT 98
--- NOTE | 2022-07-12 10:19 | W.PM.DSUDISC ---
Date of service: 07/12/22 Time of Service: 10:20 Discharge Plan Disposition Patient Disposition: HOME Condition: Good Discharge Details Reason For Visit: fluid removal Attending Provider: Hazel Lindsey Primary Care Provider: Dillon Muller [place] Meds and New Rx's Prescriptions: No Action nitroglycerin [Nitrostat] 0.4 mg tablet, sublingual 0.4 mg sublingual Q5M PRN Rx Instructions: do not exceed 3 doses per episode lactulose 20 gram/30 mL solution 30 ml PO DAILY PRN Rx Instructions: to achieve 3-4 stools/day 07/28/21 cgc spironolactone 50 mg tablet 200 mg PO DAILY Hold Instructions: Resume on 03/05/22. [place] Inst[place] [facility] [place] 01/06/22 acetaminophen 500 mg Tablet 1,000 mg PO Q6H PRN Xifaxan 550 mg tablet 550 mg PO BID Label Comments: TAKE ONE TABLET BY MOUTH TWICE A DAY. Pt. states she doesnt take furosemide 80 mg tablet 80 mg PO DAILY Label Comments: TAKE ONE TABLET BY MOUTH EVERY DAY gabapentin 100 mg Tablet 200 mg PO DAILY PRN hydrocortisone [Procto-Med HC] 2.5 % cream with perineal applicator 1 applic topical PRN PRN Label Comments: APPLY TWO TO FOUR TIMES PER DAY NEEDED metoprolol tartrate 50 mg tablet 1 tab PO TID Label Comments: TAKE ONE TABLET BY MOUTH EVERY 8 HOURS magnesium oxide 400 mg magnesium tablet 200 mg PO BID acetaminophen 325 mg Capsule 325 mg PO ONCE PRN Discharge Instructions Additional Instructions: f/u next w/ Dr Del Toro for fluid removal 07/21 high prtein diet lactulose 2-4 times a day Discharge Orders Discharge Orders: Discharge Order (Routine); Ordered 07/12/22 Ordered By: Hazel Lindsey
[2022-07-12] MEDS: ALBUMIN HUMAN 25 GM/100 ML BTL IVPB ×2 (10:28→10:57)
--- NOTE | 2022-07-12 15:59 | ROE_ITS ---
Date of service: 07/12/22 Time of Service: 10:00 Operative Note Operative Note DATE OF PROCEDURE: 07/12/22 PRE-OP DIAGNOSIS: Right pleural effusion and abdominal ascites secondary to cirrhosis from hep C POST-OP DIAGNOSIS: same PROCEDURE: Thoracentesis Paracentesis SURGEON: Hazel Lindsey ANESTHESIA TYPE: Local By Surgeon Refer to Anesthesia Record ESTIMATED BLOOD LOSS: 1 PATHOLOGY: none sent COMPLICATIONS: None Patient was transported to: same day Patient's condition: stable Procedure Description: REPORT OF OPERATION Operative Note Operative Note Pt is here today for thoracentesis for symptoms of shortness of breath.? Chest x-ray was reviewed prior to beginning the procedure.? Informed consent was obtained explaining risks and benefits of the procedure, including but not limited to bleeding, infection, pneumothorax, recurrence, complications of anes thesia, and other unforetold complications. Timeout is performed prior to beginning the procedure. ? PROCEDURE:? The patient is brought to the procedure room and placed in the seated position.? Ultrasound is used to localize the pocket on the right chest.? The area is marked and then prepped and draped in the usual sterile fashion using a ChloraPrep scrub solution.? 10 cc's of 1% Lidocaine is used to anesthetize the T10 interspace. ? The small chai is made with a #11 blade.? The needle and catheter is then inserted over the top of the rib, aspirating as it is inserted.? The needle is then removed.? The catheter is then hooked up to the Vacutainer system and 2.5L cc's of straw-colored fluid is evacuated.? The catheter is removed; pressure is held.? Sterile compression dressing is applied. ? Right-sided ultrasound shows good lung slide up to the apex of the lung. No air visualized. And attention was then turned to the paracentesis. Patient was then repositioned with all bony surfaces padded. The patient is brought to the procedure room and placed in the supine position.? Placement chosen on top in the right upper quadrant.? A time-out is done.? Ultrasound is used to localize the pocket.? The area is prepped and draped in the usual sterile fashion using a ChloraPrep scrub solution.? 10 cc's of 1% Lidocaine with epinephrine is used for local anesthetization.? The abdomen is punctured and the catheter is inserted.? 3.l liters of light yellow fluid is evacuated today.? The catheter is removed.? Pressure dressing is applied.? The patient tolerated the procedure well without complication. Pt is given instructions in wound care, activity, medications, and warning signs: SOB, increasing in pain, chest pain, redness or temperature- if these occ ur, come to ED. Pt have repeat procedure done by Dr. Del Toro on 07/21.
== END 2022-07-12 11:28 | disposition home or self-care (01) ==
PROVIDERS: PCP Family Medicine; Visit Provider Surgery
PROC: 0W9G3ZZ Drainage of Peritoneal Cavity, Percutaneous Approach (ICD-10-PCS; CPT 49082; principal; 2022-07-12 09:00)
PROC: (CPT 32554; 2022-07-12 09:00)
DX: R18.8 Other ascites (principal); J90 Pleural effusion, not elsewhere classified
CPT/HCPCS: 32554; 49082; 36415; 80053; 85027; 82140; 83735; 83880; 85610; 86140

== ENCOUNTER 2022-07-21 11:16 | Day surgery (SDC) | payer MEDICARE, MEDICAID, SELFPAY ==
--- NOTE | 2022-07-21 05:46 | PDOC.DSDIS_ITS ---
Date of service: 07/21/22 Time of Service: 13:41 Discharge Plan Disposition Patient Disposition: HOME Condition: Good Discharge Details Reason For Visit: Therapuetic paracentesis Attending Provider: Wing De lToro Primary Care Provider: Dillon Muller Home Meds and New Rx's Prescriptions: Continued nitroglycerin [Nitrostat] 0.4 mg tablet, sublingual 0.4 mg sublingual Q5M PRN Rx Instructions: do not exceed 3 doses per episode lactulose 20 gram/30 mL solution 30 ml PO DAILY PRN Rx Instructions: to achieve 3-4 stools/day 07/28/21 cgc spironolactone 50 mg tablet 200 mg PO DAILY Hold Instructions: Resume on 03/05/22. [place] [facility] [place] 01/06/22 acetaminophen 500 mg Tablet 1,000 mg PO Q6H PRN Xifaxan 550 mg tablet 550 mg PO BID Label Comments: TAKE ONE TABLET BY MOUTH TWICE A DAY. Pt. states she doesnt take furosemide 80 mg tablet 80 mg PO DAILY Label Comments: TAKE ONE TABLET BY MOUTH EVERY DAY gabapentin 100 mg Tablet 200 mg PO HS hydrocortisone [Procto-Med HC] 2.5 % cream with perineal applicator 1 applic topical PRN PRN Label Comments: APPLY TWO TO FOUR TIMES PER DAY NEEDED metoprolol tartrate 50 mg tablet 1 tab PO TID Label Comments: TAKE ONE TABLET BY MOUTH EVERY 8 HOURS magnesium oxide 400 mg magnesium tablet 200 mg PO BID acetaminophen 325 mg Capsule 325 mg PO ONCE PRN Discharge Instructions Activity:: Activity as Tolerated Remove Dressings/Wound Care:: 24 hours Shower/Bathe:: 24 hours Diet:: As Tolerated Discharge Orders Discharge Orders: Discharge Order (Routine); Ordered 07/21/22 Ordered By: Wing Del Toro
--- NOTE | 2022-07-21 05:48 | W.PM.OP ---
Date of service: 07/21/22 Time of Service: 13:38 Operative Note Operative Note DATE OF PROCEDURE: 07/21/22 PRE-OP DIAGNOSIS: Tense ascistes POST-OP DIAGNOSIS: same PROCEDURE: Therapeutic paracentesis SURGEON: Wing Del Toro ESTIMATED BLOOD LOSS: 0 PATHOLOGY: none sent COMPLICATIONS: None Patient was transported to: same day Patient's condition: stable Procedure Description: I started by performing a limited ultrasound of the abdomen to identify appropriate site for paracentesis. Next, I selected the right hemiabdomen as the ideal site for paracentesis. I then prepped and draped the abdomen. Next, using ultrasound guidance, I anesthetized the skin with 1% lidocaine with epinephrine. I used the ultrasound to guide the needle down to the peritoneal level which was also anesthetized. I then made a small incision in the skin with a 11 blade scalpel. Next, I advanced the 5 German paracentesis needle and catheter through the incision and into the peritoneal cavity under the direct vision of the ultrasound. I aspirated straw appearing ascites. Next, I gently advance the catheter and remove the needle. I affixed drainage tubing, and began draining the ascites with the assistance of Vacutainer's. I drained 6400 ml of ascites. As the flow decreased, I assisted the patient to the right lateral decubitus position to improve drainage. Once the ascites stopped flowing, I removed the catheter and used a bandaid wound.
[2022-07-21 12:06] VITALS: BP 88/71; PULSE 85; RESP 16; TEMP 35.9; O2SAT 95
[2022-07-21 13:23] VITALS: BP 123/75; PULSE 79; RESP 18; TEMP 36.3; O2SAT 97
[2022-07-21] MEDS: ALBUMIN HUMAN 25 GM/100 ML BTL IVPB ×2 (13:48→13:56)
[2022-07-21 14:10] VITALS: BP 123/80; PULSE 83; RESP 18; TEMP 36.6; O2SAT 95
== END 2022-07-21 14:20 | disposition home or self-care (01) ==
PROVIDERS: PCP Family Medicine; Visit Provider Surgery
PROC: 0W9G3ZZ Drainage of Peritoneal Cavity, Percutaneous Approach (ICD-10-PCS; CPT 49082; principal; 2022-07-21 12:15)
DX: R18.8 Other ascites (principal)
CPT/HCPCS: 49082; 96365

== ENCOUNTER 2022-07-26 08:51 | Day surgery (SDC) | payer MEDICARE, MEDICAID, SELFPAY ==
--- NOTE | 2022-07-26 06:12 | PDOC.DSDIS_ITS ---
Date of service: 07/26/22 Time of Service: 12:32 Discharge Plan Disposition Patient Disposition: HOME Condition: Good Discharge Details Reason For Visit: tense ascites Attending Provider: Wing Del Toro Primary Care Provider: Dillon Muller Home Meds and New Rx's Prescriptions: Continued nitroglycerin [Nitrostat] 0.4 mg tablet, sublingual 0.4 mg sublingual Q5M PRN Rx Instructions: do not exceed 3 doses per episode lactulose 20 gram/30 mL solution 30 ml PO DAILY PRN Rx Instructions: to achieve 3-4 stools/day 07/28/21 cgc spironolactone 50 mg tablet 200 mg PO DAILY Hold Instructions: Resume on 03/05/22. Rx Instructions: from [facility] [place] hepatology note 01/06/22 acetaminophen 500 mg Tablet 1,000 mg PO Q6H PRN Xifaxan 550 mg tablet 550 mg PO BID Label Comments: TAKE ONE TABLET BY MOUTH TWICE A DAY. Pt. states she doesnt take furosemide 80 mg tablet 80 mg PO DAILY Label Comments: TAKE ONE TABLET BY MOUTH EVERY DAY gabapentin 100 mg Tablet 200 mg PO HS hydrocortisone [Procto-Med HC] 2.5 % cream with perineal applicator 1 applic topical PRN PRN Label Comments: APPLY TWO TO FOUR TIMES PER DAY NEEDED metoprolol tartrate 50 mg tablet 1 tab PO TID Label Comments: TAKE ONE TABLET BY MOUTH EVERY 8 HOURS magnesium oxide 400 mg magnesium tablet 200 mg PO BID acetaminophen 325 mg Capsule 325 mg PO ONCE PRN Discharge Instructions Additional Instructions: 1. Leave the bandaids in place until tomorrow unless they need changing. Ok to use a bag if the ascistes is draining. Activity:: Activity as Tolerated Remove Dressings/Wound Care:: 24 hours Shower/Bathe:: 24 hours Diet:: As Tolerated Discharge Orders Discharge Orders: Discharge Order (Routine); Ordered 07/26/22 Ordered By: Wing Del Toro DS: Diagnosis Discharge Diagnosis (1) Tense ascites: Status: Acute Asessment and Plan: call the office to schedule next para. I think 10-14 days would be fine if they can schedule it
--- NOTE | 2022-07-26 06:13 | W.PM.OP ---
Date of service: 07/26/22 Time of Service: 12:35 Operative Note Operative Note DATE OF PROCEDURE: 07/26/22 PRE-OP DIAGNOSIS: Tense ascites POST-OP DIAGNOSIS: same PROCEDURE: Therapeutic paracentesis SURGEON: Wing Del Toro ANESTHESIA TYPE: Local By Surgeon ESTIMATED BLOOD LOSS: 10 PATHOLOGY: none sent COMPLICATIONS: Other (Poor flow, requiring second access site) Patient's condition: stable Indications: Erin is a 57-year-old woman with cirrhotic liver disease resulting in tense ascites that requires therapeutic paracentesis. Findings: 4400 ml ascites Procedure Description: I began by performing diagnostic ultrasound of the abdomen and pelvis. I was trying to identify the appropriate site for paracentesis. There appeared to be a significant amount of fluid in both the right and left hemiabdomens. Therefore, I prepped and draped the left lower quadrant. I anesthetized the skin with local anesthetic. Next, with the assistance of the ultrasound, I directed a paracentesis needle into the left side of the peritoneal cavity. It was difficult to advance the needle through the lining of the peritoneal cavity. I was able to aspirate ascites, but advancing the catheter into the peritoneal space was also challenging. The catheter was placed in the Vacutainer device, and straw-colored ascites began draining immediately. Drainage was inconsistent. Erin attempted to reposition herself several times, but the flow was never adequate. Therefore, I removed the catheter and turned my attention to the right side of the abdomen. Here, I anesthetized the skin once again, and using the ultrasound machine accessed the peritoneal cavity directly. The catheter was advanced into the ascites, and once again I was able to easily withdraw straw-colored ascites into the syringe. In order to optimize flow, I elected to hand pump the ascites into a drainage bag. Over the course of several minutes, with repositioning, I was able to evacuate 4400 mL of ascites. Erin tolerated the procedure fine. I remove the catheter and applied Band-Aid.
[2022-07-26 09:30] VITALS: BP 114/79; PULSE 83; RESP 16; TEMP 36.2; O2SAT 100
[2022-07-26] MEDS: Lidocaine 1% Pres-Free 5 ML VIAL IJ (11:37)
[2022-07-26] MEDS: Normal Saline Flush 10 ML SYR (12:31)
[2022-07-26 12:40] VITALS: BP 119/76; PULSE 86; RESP 16; TEMP 36; O2SAT 100
[2022-07-26] MEDS: Normal Saline Flush 10 ML SYR IV ×2 (12:58→13:34)
[2022-07-26] MEDS: ALBUMIN HUMAN 25 GM/100 ML BTL IVPB ×2 (12:59→13:35)
== END 2022-07-26 13:48 | disposition home or self-care (01) ==
LOC: SUR 08:51
PROVIDERS: PCP Family Medicine; Visit Provider Surgery
PROC: 0W9G3ZZ Drainage of Peritoneal Cavity, Percutaneous Approach (ICD-10-PCS; CPT 49082; principal; 2022-07-26 10:45)
DX: R18.8 Other ascites (principal); K74.60 Unspecified cirrhosis of liver
CPT/HCPCS: 49082; 96365

== ENCOUNTER 2022-08-02 08:38 | Day surgery (SDC) | payer MEDICARE, MEDICAID, SELFPAY ==
--- NOTE | 2022-08-01 19:42 | W.PM.DSUDISC ---
Date of service: 08/02/22 Time of Service: 11:18 Discharge Plan Disposition Patient Disposition: HOME Condition: Good Discharge Details Reason For Visit: Therapuetic paracentesis Attending Provider: Wing Del Toro Primary Care Provider: Dillon Muller Home Meds and New Rx's Prescriptions: Continued nitroglycerin [Nitrostat] 0.4 mg tablet, sublingual 0.4 mg sublingual Q5M PRN Rx Instructions: do not exceed 3 doses per episode lactulose 20 gram/30 mL solution 30 ml PO DAILY PRN Rx Instructions: to achieve 3-4 stools/day 07/28/21 cgc spironolactone 50 mg tablet 200 mg PO DAILY Hold Instructions: Resume on 03/05/22. Rx Instructions: from [facility] [place] hepatology note 01/06/22 acetaminophen 500 mg Tablet 1,000 mg PO Q6H PRN Xifaxan 550 mg tablet 550 mg PO BID Label Comments: TAKE ONE TABLET BY MOUTH TWICE A DAY. Pt. states she doesnt take furosemide 80 mg tablet 80 mg PO DAILY Label Comments: TAKE ONE TABLET BY MOUTH EVERY DAY gabapentin 100 mg Tablet 200 mg PO HS hydrocortisone [Procto-Med HC] 2.5 % cream with perineal applicator 1 applic topical PRN PRN Label Comments: APPLY TWO TO FOUR TIMES PER DAY NEEDED metoprolol tartrate 50 mg tablet 1 tab PO TID Label Comments: TAKE ONE TABLET BY MOUTH EVERY 8 HOURS magnesium oxide 400 mg magnesium tablet 200 mg PO BID acetaminophen 325 mg Capsule 325 mg PO ONCE PRN Discharge Instructions Additional Instructions: Follow up for next paracentesis 2 weeks Activity:: Activity as Tolerated Remove Dressings/Wound Care:: 24 hours Shower/Bathe:: 24 hours Diet:: As Tolerated Discharge Orders Discharge Orders: Discharge Order (Routine); Ordered 08/01/22 Ordered By: Wing Del Toro DS: Diagnosis Discharge Diagnosis (1) Tense ascites: Status: Acute Asessment and Plan: Paracentesis today
--- NOTE | 2022-08-01 19:45 | W.PM.OP ---
Date of service: 08/02/22 Time of Service: 11:43 Operative Note Operative Note DATE OF PROCEDURE: 08/02/22 PRE-OP DIAGNOSIS: Tense ascites POST-OP DIAGNOSIS: same PROCEDURE: Therapuetic paracentesis SURGEON: Wing Del Toro ANESTHESIA TYPE: Local By Surgeon ESTIMATED BLOOD LOSS: 10 PATHOLOGY: none sent COMPLICATIONS: None Patient was transported to: same day Patient's condition: stable Indications: Erin is a 57 year old woman with chronic liver disease and ascites. Procedure Description: I started by performing a limited ultrasound of the abdomen to identify appropriate site for paracentesis. Next, I selected the left hemiabdomen as the ideal site for paracentesis. I then prepped and draped the abdomen. Next, using ultrasound guidance, I anesthetized the skin with 1% lidocaine with epinephrine. I used the ultrasound to guide the needle down to the peritoneal level which was also anesthetized. I then made a small incision in the skin with a 11 blade scalpel. Next, I advanced the 5 Azerbaijani paracentesis needle and catheter through the incision and into the peritoneal cavity under the direct vision of the ultrasound. I aspirated slightly darkened straw colored fluid appearing ascites. Next, I gently advance the catheter and remove the needle. I affixed drainage tubing, and began draining the ascites with the assistance of the hand pump. I drained 2500 ml of ascites. As the flow decreased, I assisted the patient to the left lateral decubitus position to improve drainage. Once the ascites stopped flowing, I removed the catheter and used a stitch and band aid to dress the wound.
[2022-08-02 08:41] VITALS: BP 113/78; PULSE 74; RESP 20; TEMP 36.8; O2SAT 100
[2022-08-02 11:20] VITALS: BP 112/74; PULSE 79; RESP 18; TEMP 36.9; O2SAT 100
[2022-08-02] MEDS: ALBUMIN HUMAN 25 GM/100 ML BTL IVPB (11:39)
== END 2022-08-02 12:10 | disposition home or self-care (01) ==
LOC: SUR 08:39
PROVIDERS: PCP Family Medicine; Visit Provider Surgery
PROC: 0W9G3ZZ Drainage of Peritoneal Cavity, Percutaneous Approach (ICD-10-PCS; CPT 49082; principal; 2022-08-02 09:45)
DX: R18.8 Other ascites (principal); K74.60 Unspecified cirrhosis of liver
CPT/HCPCS: 49082

== ENCOUNTER 2022-08-09 03:02 | Outpatient (CLI) | payer MEDICARE, MEDICAID, SELFPAY ==
[2022-08-09 09:55] LABS: HCT 33.9 % (36.0-46.0); HGB 11.5 g/dL (11.2-15.7); MCH 32.4 pg (27.0-33.0); MCHC 33.9 % (32.0-36.0); MCV 96 fL (80-95); MPV 9.3 fL (8.0-11.0); Platelet Count 223 10^3/uL (130-400); RBC 3.55 10^6/uL (3.93-5.22); RDW 17.4 % (11.7-14.6); RDW-SD 61.1 fL
[2022-08-09 10:03] LABS: Ammonia 40 umol/L (11-32)
[2022-08-09 10:04] LABS: INR 1.3 (0.9-1.1)
[2022-08-09 10:34] LABS: ALT 28 U/L (14-59); AST 34 U/L (15-37); Albumin 3.2 g/dL (3.4-5.0); Alkaline Phosphatase 211 U/L (46-116); Anion Gap 5.3 mmol/L (3-11); BUN 33 mg/dL (7-18); Bilirubin, Total 2.7 mg/dL (0.2-1.0); C-Reactive Protein 3.69 mg/dL (0.0-0.3); CO2 25.7 mmol/L (21.0-32.0); CREATININE 1.8 mg/dL (0.55-1.02); Calcium 8.7 mg/dL (8.5-10.1); Chloride 98 mmol/L (98-107); Estimated GFR 32.86 (mL/min/1.73m2); Glucose 101 mg/dL (74-106); Magnesium 1.5 mg/dL (1.8-2.4); NT-proBNP 4902 pg/mL (<300); Potassium 4.3 mmol/L (3.5-5.1); Sodium 129 mmol/L (136-145); Total Protein 6.7 g/dL (6.4-8.2)
== END 2022-08-09 03:03 | disposition home or self-care (01) ==
LOC: LBO 03:02
PROVIDERS: PCP Family Medicine; Visit Provider Surgery
DX: I50.9 Heart failure, unspecified (principal); B19.20 Unspecified viral hepatitis C without hepatic coma; K74.60 Unspecified cirrhosis of liver; I48.91 Unspecified atrial fibrillation; B18.2 Chronic viral hepatitis C
CPT/HCPCS: 36415; 49082; 80053; 85027; 82140; 83735; 83880; 85610; 86140

== ENCOUNTER 2022-08-09 09:49 | Day surgery (SDC) | payer MEDICARE, MEDICAID, SELFPAY ==
--- NOTE | 2022-08-08 20:17 | PDOC.DSDIS_ITS ---
Date of service: 08/09/22 Time of Service: 13:35 Discharge Plan Disposition Patient Disposition: HOME Condition: Good Discharge Details Attending Provider: Wing Del Toro Primary Care Provider: Dillon Muller Home Meds and New Rx's Prescriptions: Continued nitroglycerin [Nitrostat] 0.4 mg tablet, sublingual 0.4 mg sublingual Q5M PRN Rx Instructions: do not exceed 3 doses per episode lactulose 20 gram/30 mL solution 30 ml PO DAILY PRN Rx Instructions: to achieve 3-4 stools/day 07/28/21 cgc spironolactone 50 mg tablet 200 mg PO DAILY Hold Instructions: Resume on 03/05/22. Rx Instructions: from [facility] [place] 01/06/22 acetaminophen 500 mg Tablet 1,000 mg PO Q6H PRN Xifaxan 550 mg tablet 550 mg PO BID Label Comments: TAKE ONE TABLET BY MOUTH TWICE A DAY. Pt. states she doesnt take furosemide 80 mg tablet 80 mg PO DAILY Label Comments: TAKE ONE TABLET BY MOUTH EVERY DAY gabapentin 100 mg Tablet 200 mg PO HS hydrocortisone [Procto-Med HC] 2.5 % cream with perineal applicator 1 applic topical PRN PRN Label Comments: APPLY TWO TO FOUR TIMES PER DAY NEEDED metoprolol tartrate 50 mg tablet 1 tab PO TID Label Comments: TAKE ONE TABLET BY MOUTH EVERY 8 HOURS magnesium oxide 400 mg magnesium tablet 200 mg PO BID acetaminophen 325 mg Capsule 325 mg PO ONCE PRN Discharge Instructions Stand Alone Forms: Alireza Diego (DSU) DS: Diagnosis Discharge Diagnosis (1) Tense ascites: Status: Acute Asessment and Plan: Schedule next paracentesis for 2 weeks
--- NOTE | 2022-08-08 20:18 | W.PM.OP ---
Date of service: 08/09/22 Time of Service: 13:36 Operative Note Operative Note DATE OF PROCEDURE: 08/09/22 PRE-OP DIAGNOSIS: Ascites POST-OP DIAGNOSIS: same PROCEDURE: Therapeutic paracentesis SURGEON: Wing Del Toro ANESTHESIA TYPE: Local By Surgeon Local ESTIMATED BLOOD LOSS: 5 COMPLICATIONS: None Patient was transported to: same day Patient's condition: stable Indications: Erin is a 57-year-old woman with chronic ascites. Procedure Description: I started by performing a limited ultrasound of the abdomen to identify appropriate site for paracentesis. Next, I selected the right lower quadrant as the ideal site for paracentesis. I then prepped and draped the abdomen. Next, using ultrasound guidance, I anesthetized the skin with 1% lidocaine with epinephrine. I used the ultrasound to guide the needle down to the peritoneal level which was also anesthetized. I then made a small incision in the skin with a 11 blade scalpel. Next, I advanced the 5 Estonian paracentesis needle and catheter through the incision and into the peritoneal cavity under the direct vision of the ultrasound. I aspirated straw appearing ascites. Next, I gently advance the catheter and remove the needle. I affixed drainage tubing, and began draining the ascites with the assistance of a hand pump. I drained 4750 mL of ascites. As the flow decreased, I assisted the patient to the right lateral decubitus position to improve drainage. Once the ascites stopped flowing, I removed the catheter and used Band-Aid to dress wound.
[2022-08-09 10:19] VITALS: BP 113/61; PULSE 82; RESP 20; TEMP 36.2; O2SAT 100
== END 2022-08-09 13:51 | disposition home or self-care (01) ==
PROVIDERS: PCP Family Medicine; Visit Provider Surgery
PROC: 0W9G3ZZ Drainage of Peritoneal Cavity, Percutaneous Approach (ICD-10-PCS; CPT 49082; principal; 2022-08-09 11:00)
DX: R18.8 Other ascites (principal)
CPT/HCPCS: 49082

== ENCOUNTER 2022-08-23 09:49 | Day surgery (SDC) | payer MEDICARE, MEDICAID, SELFPAY ==
--- NOTE | 2022-08-23 10:01 | PDOC.DSDIS_ITS ---
Date of service: 08/23/22 Time of Service: 13:19 Discharge Plan Disposition Patient Disposition: HOME Condition: Good Discharge Details Reason For Visit: paracentesis Attending Provider: Wing Del Toro Primary Care Provider: Dillon Muller Home Meds and New Rx's Prescriptions: Continued nitroglycerin [Nitrostat] 0.4 mg tablet, sublingual 0.4 mg sublingual Q5M PRN Rx Instructions: do not exceed 3 doses per episode lactulose 20 gram/30 mL solution 30 ml PO DAILY PRN Rx Instructions: to achieve 3-4 stools/day 07/28/21 cgc spironolactone 50 mg tablet 200 mg PO DAILY Hold Instructions: Resume on 03/05/22. Rx Instructions: from [facility] [place] hepatology note 01/06/22 acetaminophen 500 mg Tablet 1,000 mg PO Q6H PRN Xifaxan 550 mg tablet 550 mg PO BID Label Comments: TAKE ONE TABLET BY MOUTH TWICE A DAY. Pt. states she doesnt take furosemide 80 mg tablet 80 mg PO DAILY Label Comments: TAKE ONE TABLET BY MOUTH EVERY DAY gabapentin 100 mg Tablet 200 mg PO HS PRN hydrocortisone [Procto-Med HC] 2.5 % cream with perineal applicator 1 applic topical PRN PRN Label Comments: APPLY TWO TO FOUR TIMES PER DAY NEEDED metoprolol tartrate 50 mg tablet 1 tab PO TID Label Comments: TAKE ONE TABLET BY MOUTH EVERY 8 HOURS magnesium oxide 400 mg magnesium tablet 200 mg PO BID acetaminophen 325 mg Capsule 325 mg PO ONCE PRN Discharge Instructions Activity:: Activity as Tolerated Diet:: As Tolerated DS: Diagnosis Discharge Diagnosis (1) Tense ascites: Status: Acute Asessment and Plan: Follow-up in 2 weeks for next paracentesis
--- NOTE | 2022-08-23 10:01 | W.PM.OP ---
Date of service: 08/23/22 Time of Service: 13:20 Operative Note Operative Note DATE OF PROCEDURE: 08/23/22 PRE-OP DIAGNOSIS: Ascites POST-OP DIAGNOSIS: same PROCEDURE: Therapeutic paracentesis SURGEON: Wing Del Toro ANESTHESIA TYPE: Local By Surgeon Refer to Anesthesia Record ESTIMATED BLOOD LOSS: 5 COMPLICATIONS: None Patient was transported to: same day Patient's condition: stable Indications: Erin is a 57-year-old woman with chronic ascites. Procedure Description: I started by performing a limited ultrasound of the abdomen to identify appropriate site for paracentesis. Next, I selected the left lower quadrant as the ideal site for paracentesis. I then prepped and draped the abdomen. Next, using ultrasound guidance, I anesthetized the skin with 1% lidocaine with epinephrine. I used the ultrasound to guide the needle down to the peritoneal level which was also anesthetized. I then made a small incision in the skin with a 11 blade scalpel. Next, I advanced the 5 Mozambican paracentesis needle and catheter through the incision and into the peritoneal cavity under the direct vision of the ultrasound. I aspirated straw appearing ascites. Next, I gently advance the catheter and remove the needle. I affixed drainage tubing, and began draining the ascites with the assistance of a hand pump. I drained 6300 mL of ascites. As the flow decreased, I assisted the patient to the right lateral decubitus position to improve drainage. Once the ascites stopped flowing, I removed the catheter and used Band-Aid to dress wound.
[2022-08-23 10:42] VITALS: BP 125/77; PULSE 89; RESP 17; TEMP 36.3; O2SAT 100
[2022-08-23 12:59] VITALS: BP 111/77; PULSE 58; RESP 18; TEMP 37; O2SAT 99
[2022-08-23] MEDS: ALBUMIN HUMAN 25 GM/100 ML BTL IVPB (13:20)
== END 2022-08-23 14:05 | disposition home or self-care (01) ==
PROVIDERS: PCP Family Medicine; Visit Provider Surgery
PROC: 0W9G3ZZ Drainage of Peritoneal Cavity, Percutaneous Approach (ICD-10-PCS; CPT 49082; principal; 2022-08-23 12:00)
DX: R18.8 Other ascites (principal)
CPT/HCPCS: 49082

== ENCOUNTER 2022-09-02 16:10 | Emergency (ER) | payer MEDICARE, MEDICAID, SELFPAY ==
[2022-09-02 16:13] VITALS: BP 113/91; PULSE 87; RESP 16; TEMP 37.5; O2SAT 100
--- NOTE | 2022-09-02 16:28 | W.ED.GENAD ---
Discharge Plan Disposition Patient Disposition: Home Condition: Improving Discharge Details Clinical Impression: Abdominal ascites Primary Care Provider: Dillon Muller ED Provider: Victoriano Aleman Home Meds and New Rx's Prescriptions: Continued nitroglycerin [Nitrostat] 0.4 mg tablet, sublingual 0.4 mg sublingual Q5M PRN Rx Instructions: do not exceed 3 doses per episode lactulose 20 gram/30 mL solution 30 ml PO DAILY PRN Rx Instructions: to achieve 3-4 stools/day 07/28/21 cgc spironolactone 50 mg tablet 200 mg PO DAILY Hold Instructions: Resume on 03/05/22. Rx Instructions: from [facility] [place] 01/06/22 acetaminophen 500 mg Tablet 1,000 mg PO Q6H PRN Xifaxan 550 mg tablet 550 mg PO BID Label Comments: TAKE ONE TABLET BY MOUTH TWICE A DAY. Pt. states she doesnt take furosemide 80 mg tablet 80 mg PO DAILY Label Comments: TAKE ONE TABLET BY MOUTH EVERY DAY gabapentin 100 mg Tablet 200 mg PO HS PRN hydrocortisone [Procto-Med HC] 2.5 % cream with perineal applicator 1 applic topical PRN PRN Label Comments: APPLY TWO TO FOUR TIMES PER DAY NEEDED metoprolol tartrate 50 mg tablet 1 tab PO TID Label Comments: TAKE ONE TABLET BY MOUTH EVERY 8 HOURS magnesium oxide 400 mg magnesium tablet 200 mg PO BID acetaminophen 325 mg Capsule 325 mg PO ONCE PRN Discharge Instructions Instructions: Ascites (ED), Paracentesis (DC) Additional Instructions: Your sodium was slightly low again today. Para continue your routine diet. Follow-up with surgery clinic this week as planned. Return to the emergency department for any acute concern. Medical Decision Making 57-year-old female presents from home with her . She has has recurrent abdominal ascites for which the surgery department provides her weekly outpatient paracentesis with drainage. She missed last week and now presents with abdominal distention. She has not had a fever, no nausea or vomiting and no mental status changes. She has otherwise been well and taking her medications. Patient's exam reveals a distended and protuberant abdomen, an informal bedside ultrasound reveals large volume ascites. Patient was consented for bedside Patient with known and chronic hyponatremia, unremarkable CBC and INR 1.2. She was consented as to the risks and benefits of the procedure which was performed at the bedside with approximately 1 L of straw-colored fluid removed until the catheter occluded and was subsequently removed. The patient tolerated the procedure well and her abdomen remained soft and she felt more comfortable. She has freestanding follow-up this week in surgery clinic. She is stable and appropriate discharged home. There is no evidence of febrile process or abdominal pain tonight. HPI General Mode of arrival: ambulatory. Date/Time Provider Initiated Documentation: 09/02/22 16:11. Limitations to Documentation: no limitations. Information obtained by: patient and family. History of Present Illness 57 year old F presents to the emergency department with the chief complaint of Abdominal distention, feels need for paracentesis after missing the last we, described as moderate and similar to prior episodes, Quality is described as dull and constant, and is localized to the abdomen. Patient reports no radiation. Patient started experiencing this day(s) and it has been constant. No relieving factors improve symptom(s), No exacerbating factors reported . Patient notes denies fever/chills. Patient did receive the following treatments prior to arrival, none Related Data Home Medications Medication Instructions Recorded Confirmed nitroglycerin 0.4 mg sublingual 0.4 mg sublingual Q5M PRN 04/05/21 09/02/22 tablet (Nitrostat) lactulose 20 gram/30 mL oral 30 ml PO DAILY PRN 07/29/21 09/02/22 solution acetaminophen 500 mg tablet 1,000 mg PO Q6H PRN 10/05/21 09/02/22 rifaximin 550 mg tablet (Xifaxan) 550 mg PO BID 11/16/21 09/02/22 furosemide 80 mg tablet 80 mg PO DAILY 12/24/21 09/02/22 spironolactone 50 mg tablet 200 mg PO DAILY 01/06/22 09/02/22 gabapentin 100 mg tablet 200 mg PO HS PRN 02/18/22 09/02/22 hydrocortisone 2.5 % topical cream 1 applic topical PRN PRN 03/29/22 09/02/22 with perineal applicator (Procto-Med ) metoprolol tartrate 50 mg tablet 1 tab PO TID 03/29/22 09/02/22 magnesium oxide 200 mg PO BID 05/31/22 09/02/22 acetaminophen 325 mg capsule 325 mg PO ONCE PRN 07/12/22 09/02/22 Allergies Allergy/AdvReac Type Severity Reaction Status Date / Time amphetamine aspartate Allergy Severe Facial Verified 09/02/22 16:17 [From Adderall] Swelling, Blisters, Tongue Swelling, Rash, amphetamine sulfate Allergy Severe Facial Verified 09/02/22 16:17 [From Adderall] Swelling, Blisters, Tongue Swelling, Rash, dextroamphetamine saccharate Allergy Severe Facial Verified 09/02/22 16:17 [From Adderall] Swelling, Blisters, Tongue Swelling, Rash, dextroamphetamine sulfate Allergy Severe Facial Verified 09/02/22 16:17 [From Adderall] Swelling, Blisters, Tongue Swelling, Rash, Penicillins Allergy Intermediate Hives, Verified 09/02/22 16:17 Rash, Tongue Swelling codeine AdvReac Mild Constipatio Verified 09/02/22 16:17 n General Stated Complaint: Abd Prob JOE: 3 Review of Systems Narrative: 8 systems reviewed and otherwise negative. No fever or mental status changes PFSH All Active Problems (Updated 09/02/22 @ 18:04 by Victoriano Aleman MD) Abdominal ascites (Acute) Tense ascites (Acute) Hypertension (Chronic ~02/2022) 03/17/22 [facility] [place] [facility] Other ascites (Acute ~01/2022) 02/09/22 [facility] GI, weekly thoracentesis PAF (paroxysmal atrial fibrillation) (Acute) 02/09/22 [facility] [place] Cardiology, ZIO Patch placed Chronic heart failure with preserved ejection fraction (Acute) 02/09/22 [facility] [place] [facility] Encephalopathy chronic (Acute) Cardiomyopathy (Active 04/22/13) Congestive heart failure (Acute 04/22/13) Pleural effusion (Acute 04/22/13) History of gallstones (Active) Depressive disorder (Active) Anxiety (Active) Adult attention deficit hyperactivity disorder (Active) Constipation (Active) Irritable colon (Active) Smoking history (Active) History of surgery (Active) Uterine ablation approxinmately 2006 Two sections. Chronic hepatitis C (Chronic) Treated and cured, relapsed 02/2021 completed 24 wks Harvoni and ribavirin per note 05/05/22 CKD (chronic kidney disease) stage 4, GFR 15-29 ml/min (Acute) Atrial fibrillation with controlled ventricular rate (Acute) Advanced hepatic cirrhosis (Chronic) Hep C & ETOH Nephrotic syndrome (Acute) Hypokalemia (Acute) Prerenal azotemia (Acute) Cirrhosis of liver with ascites (Acute) 11/10/21 Telehealth [facility] [place] [facility] Hypokalemia due to excessive renal loss of potassium (Acute) Hydrothorax (Acute) 03/31/21 [facility] [place] [facility] 02/09/22 [facility] [place] Hepatic encephalopathy (Acute) 03/31/21 telehealth [facility] [place] [facility] Seasonal allergic rhinitis (Acute) 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) (Acute) Per [facility] note from 05/11/21 Abdominal ascites (Acute) Medical History Anxiety Attention deficit hyperactivity disorder, combined type 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 History of abdominal paracentesis Irritable colon Renal failure syndrome SVT (supraventricular tachycardia) Surgical History section x2 History of ileal conduit History of thoracentesis (~12/28/21) 08/03/20,08/10/20 08/21/20,08/31/20 Hx of tubal ligation S/P abdominal paracentesis (~12/28/21) Family History Mother Hypertensive disorder, systemic arterial Cancer Cervical Father Hypertensive disorder, systemic arterial Maternal Grandfather Diabetes Maternal Grandmother Cancer Ovarian Social History Smoking/Tobacco Use Status: Former Tobacco Use Quit Date: 09/18/18 Smoking risk assessment performed?: Yes Alcohol Intake: former Drug use: Never Substance use type: does not use Adopted: No Caregiver/Support person: No Foster care: No Household members: family Housing: house Number of Children: 4 number of grandchildren: 2 Communication Needs: None Do you need help understanding health information?: Often current occupation: Used to work for [employer] Current gender identity: female What is your relationship status?: How often do you talk on the phone with friends or family?: three or more times per week Panel score (0-1 are the most socially isolated patients): 2 What type of physical activity do you participate in: none Seatbelt use: always Drive intox or ride w/intox local [place] 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 Pleasant, well groomed, interactive. HEAD: Normocephalic, atraumatic EYES: PERRL, EOMI NECK: Full ROM, no CLAUDETTE, no menigismus CHEST/RESP: Nontender, clear to auscultation bilateral, no wheeze/rhonchi/rales CARDIOVASCULAR: RRR, no murmur, rub vargas. 2+ Rad pulse bilateral ABDOMEN: Soft, nontender, distended, positive fluid wave EXT: Full ROM, no edema, no rash Neuro: Grossly normal neurologic exam, conversant, interactive. Psych: Speech fluent, thoughts congruent, affect normal Course Vital Signs Vital signs: Vital Signs Temperature 37.5 C 09/02/22 16:13 Pulse 87 09/02/22 16:13 Respiratory Rate 16 09/02/22 16:13 Blood Pressure 113/91 H 09/02/22 16:13 Pulse Oximetry 100 09/02/22 16:13 Temperature 37.5 C 09/02/22 16:13 Temperature Source Temporal Artery Scan 09/02/22 16:13 Pulse 87 09/02/22 16:13 Respiratory Rate 16 09/02/22 16:13 Respiratory Effort Non-Labored 09/02/22 16:15 Blood Pressure 113/91 H 09/02/22 16:13 Blood Pressure Position Sitting 09/02/22 16:13 Pulse Oximetry 100 09/02/22 16:13 Oxygen Delivery Method Room Air 09/02/22 16:13 Oxygen Flow Rate 0 09/02/22 16:13 Pain Level 8 09/02/22 16:13 Procedures Paracentesis Time Out Performed: Yes Local Anesthetic: Lidocaine 1% Amount of anesthesia used (mL): 3 Fluid: clear Post Procedure Exam: awake, alert, normal BP and normal HR Patient Tolerated Procedure: well and no complications
[2022-09-02 16:34] LABS: HCT 35.4 % (36.0-46.0); MCH 32.3 pg (27.0-33.0); MCHC 33.9 % (32.0-36.0); MCV 95 fL (80-95); Platelet Count 211 10^3/uL (130-400); RBC 3.71 10^6/uL (3.93-5.22); RDW 16.3 % (11.7-14.6); RDW-SD 58.2 fL; WBC 7.38 10^3/uL (4.4-10.8)
[2022-09-02 16:45] LABS: INR 1.2 (0.9-1.1); Prothrombin Time 11.9 sec (9.3-11.0)
[2022-09-02 16:56] LABS: ALT 34 U/L (14-59); AST 37 U/L (15-37); Alkaline Phosphatase 211 U/L (46-116); Anion Gap 4.2 mmol/L (3-11); BUN 45 mg/dL (7-18); Bilirubin, Total 3.3 mg/dL (0.2-1.0); CO2 27.8 mmol/L (21.0-32.0); CREATININE 1.8 mg/dL (0.55-1.02); Calcium 8.7 mg/dL (8.5-10.1); Chloride 96 mmol/L (98-107); Estimated GFR 32.86 (mL/min/1.73m2); Glucose 100 mg/dL (74-106); Potassium 4.2 mmol/L (3.5-5.1); Sodium 128 mmol/L (136-145); Total Protein 7.1 g/dL (6.4-8.2)
[2022-09-02] MEDS: Lidocaine 4% Cream 5 GM TUBE TP (17:07)
[2022-09-02 18:11] VITALS: RESP 30
== END 2022-09-02 18:23 | disposition home or self-care (01) ==
PROVIDERS: Emergency Provider Emergency Medicine; PCP Family Medicine
DX: R18.8 Other ascites (principal); E87.1 Hypo-osmolality and hyponatremia; Z86.16 Personal history of COVID-19; Z87.19 Personal history of other diseases of the digestive system; Z98.51 Tubal ligation status; Z90.49 Acquired absence of other specified parts of digestive tract
CPT/HCPCS: 49082; 80053; 85027; 99282; 85610

== ENCOUNTER 2022-09-06 12:53 | Day surgery (SDC) | payer MEDICARE, MEDICAID, SELFPAY ==
--- NOTE | 2022-09-06 13:37 | W.PM.DSUDISC ---
Date of service: 09/06/22 Time of Service: 15:35 Discharge Plan Disposition Patient Disposition: Home Condition: Good Discharge Details Reason For Visit: paracentesis Attending Provider: Wing Del Toro Primary Care Provider: Dillon Muller Home Meds and New Rx's Prescriptions: Continued nitroglycerin [Nitrostat] 0.4 mg tablet, sublingual 0.4 mg sublingual Q5M PRN Rx Instructions: do not exceed 3 doses per episode lactulose 20 gram/30 mL solution 30 ml PO DAILY PRN Rx Instructions: to achieve 3-4 stools/day 07/28/21 cgc spironolactone 50 mg tablet 200 mg PO DAILY Hold Instructions: Resume on 03/05/22. Rx Instructions: from [facility] [place] 01/06/22 acetaminophen 500 mg Tablet 1,000 mg PO Q6H PRN Xifaxan 550 mg tablet 550 mg PO BID Label Comments: TAKE ONE TABLET BY MOUTH TWICE A DAY. Pt. states she doesnt take furosemide 80 mg tablet 80 mg PO DAILY Label Comments: TAKE ONE TABLET BY MOUTH EVERY DAY gabapentin 100 mg Tablet 200 mg PO HS PRN hydrocortisone [Procto-Med HC] 2.5 % cream with perineal applicator 1 applic topical PRN PRN Label Comments: APPLY TWO TO FOUR TIMES PER DAY NEEDED metoprolol tartrate 50 mg tablet 1 tab PO TID Label Comments: TAKE ONE TABLET BY MOUTH EVERY 8 HOURS magnesium oxide 400 mg magnesium tablet 200 mg PO BID acetaminophen 325 mg Capsule 325 mg PO ONCE PRN Discharge Instructions Activity:: Activity as Tolerated Diet:: As Tolerated Discharge Orders Discharge Orders: Discharge Order (Routine); Ordered 09/06/22 Ordered By: Wing Del Toro DS: Diagnosis Discharge Diagnosis (1) Abdominal ascites: Status: Acute Asessment and Plan: We drained 2500 mL today. We can schedule another paracentesis next week.
--- NOTE | 2022-09-06 13:39 | ROE_ITS ---
Date of service: 09/06/22 Time of Service: 15:38 Operative Note Operative Note DATE OF PROCEDURE: 09/06/22 PRE-OP DIAGNOSIS: Ascites POST-OP DIAGNOSIS: same PROCEDURE: Paracentesis SURGEON: Wing Del Toro ANESTHESIA TYPE: Local By Surgeon ESTIMATED BLOOD LOSS: 5 PATHOLOGY: none sent COMPLICATIONS: None Indications: Erin is a 57-year-old woman with chronic liver disease and ascites who requires frequent paracentesis. At the end of last week, she developed increasing shortness of breath, and presented to the emergency department. They attempted paracentesis. The volume that was drained does not reported in the dark, but she tells me it was low volume. Subsequently, she says she was draining quite a bit of fluid from the paracentesis site during the days that followed. Procedure Description: I started by performing a limited ultrasound of the abdomen to identify appropriate site for paracentesis. There was much less volume than typical for Erin. Next, I selected the right lower quad as the ideal site for paracentesis. I then prepped and draped the abdomen. Next, using ultrasound guidance, I anesthetized the skin with 1% lidocaine with epinephrine. I used the ultrasound to guide the needle down to the peritoneal level which was also anesthetized. I then made a small incision in the skin with a 11 blade scalpel. Next, I advanced the 5 Jordanian paracentesis needle and catheter through the incision and into the peritoneal cavity under the direct vision of the ultrasound. I aspirated slightly turbid, straw-colored ascites. Flow was poor. I attempted to aspirate with a syringe, but I could not maintain a steady stream of ascites. Therefore, I removed this catheter and repeated the procedure, again using ultrasound guidance. This time, the needle and catheter advanced much smoother. I gently advanced the catheter over the needle, and I withdrew the needle.. I affixed drainage tubing, and began draining the ascites with the assistance of a hand pump. I drained 2500 mL of ascites. As the flow decreased, I assisted the patient to the right lateral decubitus position to improve drainage. Once the ascites stopped flowing, I removed the catheter and used Band-Aid to dress the wound.
[2022-09-06 13:51] VITALS: BP 100/56; PULSE 82; RESP 16; TEMP 36.5; O2SAT 99
[2022-09-06] MEDS: Normal Saline Flush 10 ML SYR (14:27)
[2022-09-06] MEDS: Sodium Bicarbonate 50 MEQ/50 ML VIAL (15:07)
[2022-09-06] MEDS: Lidocaine 1% Pres-Free W/EPI 1/200,000 10 ML VIAL (15:07)
== END 2022-09-06 16:40 | disposition home or self-care (01) ==
PROVIDERS: PCP Family Medicine; Visit Provider Surgery
PROC: 0W9G3ZZ Drainage of Peritoneal Cavity, Percutaneous Approach (ICD-10-PCS; CPT 49082; principal; 2022-09-06 14:15)
DX: R18.8 Other ascites (principal)
CPT/HCPCS: 49082; 96365

== ENCOUNTER 2022-09-20 10:14 | Day surgery (SDC) | payer MEDICARE, MEDICAID, SELFPAY ==
--- NOTE | 2022-09-19 20:43 | PDOC.DSDIS_ITS ---
Date of service: 09/20/22 Time of Service: 13:21 Discharge Plan Disposition Patient Disposition: Home Condition: Good Discharge Details Reason For Visit: paracentesis Attending Provider: Wing Del Toro Primary Care Provider: Dillon Muller Home Meds and New Rx's Prescriptions: Continued nitroglycerin [Nitrostat] 0.4 mg tablet, sublingual 0.4 mg sublingual Q5M PRN Rx Instructions: do not exceed 3 doses per episode lactulose 20 gram/30 mL solution 30 ml PO DAILY PRN Rx Instructions: to achieve 3-4 stools/day 07/28/21 cgc spironolactone 50 mg tablet 200 mg PO DAILY Hold Instructions: Resume on 03/05/22. Rx Instructions: from [facility] [place] hepatology note 01/06/22 acetaminophen 500 mg Tablet 1,000 mg PO Q6H PRN Xifaxan 550 mg tablet 550 mg PO BID Label Comments: TAKE ONE TABLET BY MOUTH TWICE A DAY. Pt. states she doesnt take furosemide 80 mg tablet 80 mg PO DAILY Label Comments: TAKE ONE TABLET BY MOUTH EVERY DAY gabapentin 100 mg Tablet 200 mg PO HS PRN hydrocortisone [Procto-Med HC] 2.5 % cream with perineal applicator 1 applic topical PRN PRN Label Comments: APPLY TWO TO FOUR TIMES PER DAY NEEDED metoprolol tartrate 50 mg tablet 1 tab PO TID Label Comments: TAKE ONE TABLET BY MOUTH EVERY 8 HOURS magnesium oxide 400 mg magnesium tablet 200 mg PO BID acetaminophen 325 mg Capsule 325 mg PO ONCE PRN Discharge Instructions Activity:: Activity as Tolerated Remove Dressings/Wound Care:: 24 hours Shower/Bathe:: 24 hours Discharge Orders Discharge Orders: Discharge Order (Routine); Ordered 09/19/22 Ordered By: Wing Del Toro DS: Diagnosis Discharge Diagnosis (1) Abdominal ascites: Status: Acute Asessment and Plan: Paracentesis with approximately 5600 mL drained today Transfuse albumin Follow-up for paracentesis in 2-week
--- NOTE | 2022-09-19 20:45 | W.PM.OP ---
Date of service: 09/20/22 Time of Service: 13:21 Operative Note Operative Note DATE OF PROCEDURE: 09/20/22 PRE-OP DIAGNOSIS: Tense ascites POST-OP DIAGNOSIS: same PROCEDURE: Therapeutic paracentesis SURGEON: Wing Del Toro ANESTHESIA TYPE: Local By Surgeon ESTIMATED BLOOD LOSS: 5 PATHOLOGY: none sent COMPLICATIONS: None Patient was transported to: same day Patient's condition: stable Procedure Description: I started by performing a limited ultrasound of the abdomen to identify appropriate site for paracentesis. Next, I selected the right lower quadrant as the ideal site for paracentesis. I then prepped and draped the abdomen. Next, using ultrasound guidance, I anesthetized the skin with 1% lidocaine with epinephrine. I used the ultrasound to guide the needle down to the peritoneal level which was also anesthetized. I then made a small incision in the skin with a 11 blade scalpel. Next, I advanced the 5 Maltese paracentesis needle and catheter through the incision and into the peritoneal cavity under the direct vision of the ultrasound. I aspirated straw-colored ascites. Next, I gently advance the catheter and remove the needle. I affixed drainage tubing, and began draining the ascites with the assistance of Vacutainer's. I drained 3600 mL of ascites. As the flow decreased, I assisted the patient to the left lateral decubitus position to improve drainage. Additionally, I transition from Vacutainer drainage over to a hand pump. Once the ascites stopped flowing, I removed the catheter and used a Band-Aid to dress the wound. In total I drained approximately 5600 mL.
[2022-09-20 10:30] VITALS: BP 120/81; PULSE 86; RESP 16; TEMP 36; O2SAT 98
[2022-09-20 13:00] VITALS: BP 101/78; PULSE 74; RESP 18; TEMP 36.1; O2SAT 100
[2022-09-20] MEDS: ALBUMIN HUMAN 25 GM/100 ML BTL 100 GM (13:15)
[2022-09-20] MEDS: Normal Saline Flush 10 ML SYR IVP (13:15)
== END 2022-09-20 14:10 | disposition home or self-care (01) ==
PROVIDERS: PCP Family Medicine; Visit Provider Surgery
PROC: 0W9G3ZZ Drainage of Peritoneal Cavity, Percutaneous Approach (ICD-10-PCS; CPT 49082; principal; 2022-09-20 12:30)
DX: R18.8 Other ascites (principal)
CPT/HCPCS: 49082; 96365

== ENCOUNTER 2022-10-04 03:06 | Outpatient (CLI) | payer MEDICARE, MEDICAID, SELFPAY ==
[2022-10-04 12:20] LABS: HCT 35.5 % (36.0-46.0); HGB 11.9 g/dL (11.2-15.7); MCH 32.6 pg (27.0-33.0); MCHC 33.5 % (32.0-36.0); MCV 97 fL (80-95); MPV 9.6 fL (8.0-11.0); Platelet Count 177 10^3/uL (130-400); RBC 3.65 10^6/uL (3.93-5.22); RDW-SD 57.5 fL; WBC 5.69 10^3/uL (4.4-10.8)
[2022-10-04 12:30] LABS: Ammonia 74 umol/L (11-32)
[2022-10-04 12:37] LABS: INR 1.3 (0.9-1.1); Prothrombin Time 12.7 sec (9.3-11.0)
[2022-10-04 12:40] LABS: ALT 31 U/L (14-59); AST 38 U/L (15-37); Albumin 2.8 g/dL (3.4-5.0); Alkaline Phosphatase 167 U/L (46-116); Anion Gap 6.3 mmol/L (3-11); BUN 37 mg/dL (7-18); Bilirubin, Total 2.7 mg/dL (0.2-1.0); CO2 26.7 mmol/L (21.0-32.0); CREATININE 1.7 mg/dL (0.55-1.02); Calcium 9.2 mg/dL (8.5-10.1); Chloride 101 mmol/L (98-107); Glucose 105 mg/dL (74-106); Magnesium 1.5 mg/dL (1.8-2.4); Sodium 134 mmol/L (136-145); Total Protein 6.6 g/dL (6.4-8.2)
[2022-10-04 13:03] LABS: C-Reactive Protein 1.43 mg/dL (0.0-0.3); NT-proBNP 2540 pg/mL (<300)
== END 2022-10-04 03:07 | disposition home or self-care (01) ==
LOC: LBO 03:07
PROVIDERS: Surgery; PCP Family Medicine; Visit Provider Surgery
DX: I50.9 Heart failure, unspecified (principal); K74.60 Unspecified cirrhosis of liver; N18.2 Chronic kidney disease, stage 2 (mild); I48.91 Unspecified atrial fibrillation; K76.89 Other specified diseases of liver; K76.7 Hepatorenal syndrome; E87.1 Hypo-osmolality and hyponatremia; E87.6 Hypokalemia; Z79.899 Other long term (current) drug therapy
CPT/HCPCS: 36415; 49082; 80053; 85027; 82140; 83735; 83880; 85610; 86140

== ENCOUNTER 2022-10-04 12:18 | Day surgery (SDC) | payer MEDICARE, MEDICAID, SELFPAY ==
[2022-09-30 14:55] VITALS: BP 107/76; PULSE 86; RESP 20; TEMP 36.1; O2SAT 100
[2022-10-04 12:41] VITALS: BP 117/71; PULSE 89; RESP 20; TEMP 36.4; O2SAT 96
--- NOTE | 2022-10-04 12:46 | NUR.NOTE ---
1245: aware pt. is refusing saline lock and albumin todayNursing Note:
--- NOTE | 2022-10-04 13:57 | W.PM.DSUDISC ---
Date of service: 10/04/22 Time of Service: 13:57 Discharge Plan Disposition Patient Disposition: Home Condition: Good Discharge Details Reason For Visit: paracentesis Attending Provider: Wing Del Toro Primary Care Provider: Dillon Muller Home Meds and New Rx's Prescriptions: Continued nitroglycerin [Nitrostat] 0.4 mg tablet, sublingual 0.4 mg sublingual Q5M PRN Rx Instructions: do not exceed 3 doses per episode lactulose 20 gram/30 mL solution 30 ml PO DAILY PRN Rx Instructions: to achieve 3-4 stools/day 07/28/21 cgc spironolactone 50 mg tablet 200 mg PO DAILY Hold Instructions: Resume on 03/05/22. Rx Instructions: from [facility] [place] hepatology note 01/06/22 acetaminophen 500 mg Tablet 1,000 mg PO Q6H PRN Xifaxan 550 mg tablet 550 mg PO BID Label Comments: TAKE ONE TABLET BY MOUTH TWICE A DAY. Pt. states she doesnt take furosemide 80 mg tablet 80 mg PO DAILY Label Comments: TAKE ONE TABLET BY MOUTH EVERY DAY gabapentin 100 mg Tablet 200 mg PO HS PRN hydrocortisone [Procto-Med HC] 2.5 % cream with perineal applicator 1 applic topical PRN PRN Label Comments: APPLY TWO TO FOUR TIMES PER DAY NEEDED metoprolol tartrate 50 mg tablet 1 tab PO TID Label Comments: TAKE ONE TABLET BY MOUTH EVERY 8 HOURS magnesium oxide 400 mg magnesium tablet 200 mg PO BID acetaminophen 325 mg Capsule 325 mg PO ONCE PRN Discharge Instructions Activity:: Activity as Tolerated Remove Dressings/Wound Care:: 24 hours Shower/Bathe:: 24 hours Diet:: As Tolerated DS: Diagnosis Discharge Diagnosis (1) Tense ascites: Status: Acute Asessment and Plan: Erin, we drained 6 L of ascites today. We will try to go 2 weeks before your next paracentesis.
--- NOTE | 2022-10-04 13:59 | W.PM.OP ---
Date of service: 10/04/22 Time of Service: 13:59 Operative Note Operative Note DATE OF PROCEDURE: 10/04/22 PRE-OP DIAGNOSIS: Ascites POST-OP DIAGNOSIS: same PROCEDURE: Paracentesis SURGEON: Wing Del Toro ANESTHESIA TYPE: Local By Surgeon Refer to Anesthesia Record ESTIMATED BLOOD LOSS: 5 PATHOLOGY: none sent COMPLICATIONS: None Patient was transported to: same day Patient's condition: stable Indications: Erin is a 57-year-old woman with cirrhosis and ascites. Procedure Description: I started by performing a limited ultrasound of the abdomen to identify appropriate site for paracentesis. Next, I selected the left lower quadrant as the ideal site for paracentesis. I then prepped and draped the abdomen. Next, using ultrasound guidance, I anesthetized the skin with 1% lidocaine with epinephrine. I used the ultrasound to guide the needle down to the peritoneal level which was also anesthetized. I then made a small incision in the skin with a 11 blade scalpel. Next, I advanced the 5 Sammarinese paracentesis needle and catheter through the incision and into the peritoneal cavity under the direct vision of the ultrasound. I aspirated straw-colored ascites. Next, I gently advance the catheter and remove the needle. I affixed drainage tubing, and began draining the ascites with the assistance of Vacutainer's. I drained 4 L of ascites. As the flow decreased, I assisted the patient to the left lateral decubitus position to improve drainage. I transitioned over to hand pumping. I drained another 1600 mL. once the ascites stopped flowing, I removed the catheter and used a Band-Aid to dress the wound.
[2022-10-04] MEDS: Normal Saline Flush 10 ML SYR IV ×2 (14:05→14:45)
[2022-10-04] MEDS: ALBUMIN HUMAN 25 GM/100 ML BTL IVPB (14:05)
== END 2022-10-04 14:50 | disposition home or self-care (01) ==
PROVIDERS: PCP Family Medicine; Visit Provider Surgery
PROC: 0W9G3ZZ Drainage of Peritoneal Cavity, Percutaneous Approach (ICD-10-PCS; CPT 49082; principal; 2022-10-04 14:00)
DX: R18.8 Other ascites (principal)
CPT/HCPCS: 49082

== ENCOUNTER 2022-10-12 16:09 | Emergency (ER) | payer MEDICARE, MEDICAID, SELFPAY ==
[2022-10-12 16:17] VITALS: BP 119/68; PULSE 77; RESP 18; TEMP 36.6; O2SAT 98
--- NOTE | 2022-10-12 16:57 | W.ED.GENAD ---
Discharge Plan Disposition Patient Disposition: Home Condition: Good Discharge Details Clinical Impression: History of abdominal paracentesis, Ascites due to chronic alcoholic hepatitis Primary Care Provider: Dillon Muller ED Provider: Emil Costa Home Meds and New Rx's Prescriptions: Continued nitroglycerin [Nitrostat] 0.4 mg tablet, sublingual 0.4 mg sublingual Q5M PRN Rx Instructions: do not exceed 3 doses per episode lactulose 20 gram/30 mL solution 30 ml PO DAILY PRN Rx Instructions: to achieve 3-4 stools/day 07/28/21 cgc spironolactone 50 mg tablet 200 mg PO DAILY Hold Instructions: Resume on 03/05/22. Rx Instructions: from [facility] [place] [place] hepatology note 01/06/22 acetaminophen 500 mg Tablet 1,000 mg PO Q6H PRN Xifaxan 550 mg tablet 550 mg PO BID Label Comments: TAKE ONE TABLET BY MOUTH TWICE A DAY. Pt. states she doesnt take furosemide 80 mg tablet 80 mg PO DAILY Label Comments: TAKE ONE TABLET BY MOUTH EVERY DAY gabapentin 100 mg Tablet 200 mg PO HS PRN hydrocortisone [Procto-Med HC] 2.5 % cream with perineal applicator 1 applic topical PRN PRN Label Comments: APPLY TWO TO FOUR TIMES PER DAY NEEDED metoprolol tartrate 50 mg tablet 1 tab PO TID Label Comments: TAKE ONE TABLET BY MOUTH EVERY 8 HOURS magnesium oxide 400 mg magnesium tablet 200 mg PO BID acetaminophen 325 mg Capsule 325 mg PO ONCE PRN Discharge Instructions Instructions: Ascites (ED) Additional Instructions: At this time 5 L of ascites fluid has been removed. As you know, the ideal place for this to be performed is with your surgeon. If you notice any worsening of your symptoms, or any new symptoms such as vomiting, diarrhea, fever, chills, shortness of breath, chest pain, numbness, weakness, or fainting , please return immediately to the emergency department for reevaluation. Please follow up with your primary care provider as soon as possible for reassessment and reevaluation. As always, it was a pleasure participating in your medical care today. Referrals: Dillon Muller DO [Primary Care Provider] - Medical Decision Making 57-year-old female with a past medical history of chronic ascites secondary to chronic alcoholic hepatitis presents today for evaluation of ascites. Patient states that she normally has her ascites drained every 1 to 2 weeks. She refuses to take albumin as she feels that this does not help anymore. Unfortunately she missed her last episode. She states that her ascites has been moderate and would like to get it drained today. She denies any abdominal pain, fever, chills or other complaints. No other complaints at this time. No other modifying factors. Exam demonstrates moderate ascites, no abdominal pain or tenderness whatsoever. Symptoms clinically inconsistent with spontaneous bacterial peritonitis. We did discuss the risks and benefits of procedure. We did recommend that this is not the best location for this to be done. Patient understands this. She is still requesting the procedure in this not ideal scenario. Patient consented for procedure. Procedure was performed without complication. 5 L were removed. Patient refused albumin. Patient will be discharged with recommendations for close follow-up. Patient tolerated procedure well. I have extensively reviewed the treatment plan and discharge instructions with the patient. I have addressed all patient concerns at this time. The patient was made aware of what symptoms to monitor for that would warrant a return to the emergency department. Discussed the plan with the patient, they demonstrate verbal understanding and agreement with our assessment and plan at this time. The documentation in this chart was dictated using [employer] dictation software. Please excuse any dictation errors. HPI General Date/Time Provider Initiated Documentation: 10/12/22 16:14. HPI Narrative: 57-year-old female with a past medical history of chronic ascites secondary to chronic alcoholic hepatitis presents today for evaluation of ascites. Patient states that she normally has her ascites drained every 1 to 2 weeks. She refuses to take albumin as she feels that this does not help anymore. Unfortunately she missed her last episode. She states that her ascites has been moderate and would like to get it drained today. She denies any abdominal pain, fever, chills or other complaints. No other complaints at this time. No other modifying factors. Related Data Home Medications Medication Instructions Recorded Confirmed nitroglycerin 0.4 mg sublingual 0.4 mg sublingual Q5M PRN 04/05/21 10/04/22 tablet (Nitrostat) lactulose 20 gram/30 mL oral 30 ml PO DAILY PRN 07/29/21 10/04/22 solution acetaminophen 500 mg tablet 1,000 mg PO Q6H PRN 10/05/21 10/04/22 rifaximin 550 mg tablet (Xifaxan) 550 mg PO BID 11/16/21 10/04/22 furosemide 80 mg tablet 80 mg PO DAILY 12/24/21 10/04/22 spironolactone 50 mg tablet 200 mg PO DAILY 01/06/22 10/04/22 gabapentin 100 mg tablet 200 mg PO HS PRN 02/18/22 10/04/22 hydrocortisone 2.5 % topical cream 1 applic topical PRN PRN 03/29/22 10/04/22 with perineal applicator (Procto-Med ) metoprolol tartrate 50 mg tablet 1 tab PO TID 03/29/22 10/04/22 magnesium oxide 200 mg PO BID 05/31/22 10/04/22 acetaminophen 325 mg capsule 325 mg PO ONCE PRN 07/12/22 10/04/22 Allergies Allergy/AdvReac Type Severity Reaction Status Date / Time amphetamine aspartate Allergy Severe Facial Verified 10/04/22 12:35 [From Adderall] Swelling, Blisters, Tongue Swelling, Rash, amphetamine sulfate Allergy Severe Facial Verified 10/04/22 12:35 [From Adderall] Swelling, Blisters, Tongue Swelling, Rash, dextroamphetamine saccharate Allergy Severe Facial Verified 10/04/22 12:35 [From Adderall] Swelling, Blisters, Tongue Swelling, Rash, dextroamphetamine sulfate Allergy Severe Facial Verified 10/04/22 12:35 [From Adderall] Swelling, Blisters, Tongue Swelling, Rash, Penicillins Allergy Intermediate Hives, Verified 10/04/22 12:35 Rash, Tongue Swelling codeine AdvReac Mild Constipatio Verified 10/04/22 12:35 n General Stated Complaint: GenMedical JOE: 3 Review of Systems All systems reviewed & are unremarkable except as noted in HPI and below PFSH All Active Problems History of abdominal paracentesis (Acute) Ascites due to chronic alcoholic hepatitis (Acute) Tense ascites (Acute) Hypertension (Chronic ~02/2022) 03/17/22 [facility] [place] [place] Cardiology Other ascites (Acute ~01/2022) 02/09/22 [facility] [place] [place] GI, weekly thoracentesis PAF (paroxysmal atrial fibrillation) (Acute) 02/09/22 [facility] [place] [place] Cardiology, ZIO Patch placed Chronic heart failure with preserved ejection fraction (Acute) 02/09/22 [facility] [place] [place] Cardiology Encephalopathy chronic (Acute) Cardiomyopathy (Active 04/22/13) Congestive heart failure (Acute 04/22/13) Pleural effusion (Acute 04/22/13) History of gallstones (Active) Depressive disorder (Active) Anxiety (Active) Adult attention deficit hyperactivity disorder (Active) Constipation (Active) Irritable colon (Active) Smoking history (Active) History of surgery (Active) Uterine ablation approxinmately 2006 Two sections. Chronic hepatitis C (Chronic) Treated and cured, relapsed 02/2021 completed 24 wks Harvoni and ribavirin per note 05/05/22 CKD (chronic kidney disease) stage 4, GFR 15-29 ml/min (Acute) Atrial fibrillation with controlled ventricular rate (Acute) Advanced hepatic cirrhosis (Chronic) Hep C & ETOH Nephrotic syndrome (Acute) Hypokalemia (Acute) Prerenal azotemia (Acute) Cirrhosis of liver with ascites (Acute) 11/10/21 Telehealth [facility] [place] [place] Gastro Hypokalemia due to excessive renal loss of potassium (Acute) Hydrothorax (Acute) 03/31/21 [facility] [place] [place] Gastro 02/09/22 [facility] [place] [place] GI Hepatic encephalopathy (Acute) 03/31/21 telehealth [facility] [place] [place] Gastro Seasonal allergic rhinitis (Acute) 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) (Acute) Per [facility] [place] [place] Gastro note from 05/11/21 Abdominal ascites (Acute) Medical History Anxiety Attention deficit hyperactivity disorder, combined type 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 History of abdominal paracentesis Irritable colon Renal failure syndrome SVT (supraventricular tachycardia) Surgical History section x2 History of ileal conduit History of thoracentesis (~12/28/21) 08/03/20,08/10/20 08/21/20,08/31/20 Hx of tubal ligation S/P abdominal paracentesis (~12/28/21) Family History Mother Hypertensive disorder, systemic arterial Cancer Cervical Father Hypertensive disorder, systemic arterial Maternal Grandfather Diabetes Maternal Grandmother Cancer Ovarian Social History (Reviewed 10/12/22 @ 17:06 by CAITY Vasquez Smoking/Tobacco Use Status: Former Tobacco Use Quit Date: 09/18/18 Smoking risk assessment performed?: Yes Alcohol Intake: former Drug use: Never Substance use type: does not use Adopted: No Caregiver/Support person: No Foster care: No Household members: family Housing: house Number of Children: 4 number of grandchildren: 2 Communication Needs: None Do you need help understanding health information?: Often current occupation: Used to work for [employer] Current gender identity: female What is your relationship status?: How often do you talk on the phone with friends or family?: three or more times per week Panel score (0-1 are the most socially isolated patients): 2 What type of physical activity do you participate in: none Seatbelt use: always Drive intox or ride w/intox bottom hoop driver: No Working smoke detector in home: Yes Fire extinguisher in home: Yes Carbon monox detector in home: Yes Do you feel safe at home: Yes Do you feel safe in your relationship?: Yes Exam Narrative Exam Narrative: 1.Const: Well-nourished, Well-developed, appearing stated age 2.Eyes: PERRL, no conjunctival injection, and symmetrical lids. 3.ENT: Atraumatic external nose and ears. Moist MM. Neck: Symmetric, trachea midline, No thyromegaly. 4.CVS: +S1/S2, No murmurs or gallops. Peripheral pulses 2+ and equal in all extremities. Brisk capillary refill in all extremities. 5.RESP: Unlabored respiratory effort. Clear to auscultation bilaterally. No wheezes rales or rhonchi 6.GI: Soft, notable ascites, nontender. No guarding or rebound. 7.MSK: Normocephalic/Atraumatic, Extremities w/o deformity or ttp No cyanosis or clubbing, Normal movement of all extremities 8.Skin: Warm, Dry. No rashes or lesions. 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 Sensation grossly intact, no focal neurologic deficits. 10.Psych: (AAO) x3. Appropriate mood and affect Course Vital Signs Vital signs: Vital Signs Temperature 36.6 C 10/12/22 16:17 Pulse 77 10/12/22 16:17 Respiratory Rate 18 10/12/22 16:17 Blood Pressure 119/68 10/12/22 16:17 Pulse Oximetry 98 10/12/22 16:17 Temperature 36.6 C 10/12/22 16:17 Temperature Source Temporal Artery Scan 10/12/22 16:17 Pulse 77 10/12/22 16:17 Respiratory Rate 18 10/12/22 16:17 Respiratory Effort Short of Breath 10/12/22 16:20 Blood Pressure 119/68 10/12/22 16:17 Blood Pressure Position Supine 10/12/22 16:17 Pulse Oximetry 98 10/12/22 16:17 Oxygen Delivery Method Room Air 10/12/22 16:17 Oxygen Flow Rate 0 10/12/22 16:17 Pain Level 7 10/12/22 16:17 Procedures Paracentesis Time Out Performed: Yes Local Anesthetic: Lidocaine 1% Amount of anesthesia used (mL): 3 Fluid: clear Post Procedure Exam: awake, alert, normal BP, normal HR and normal SpO2 Patient Tolerated Procedure: well and no complications Complications: none and other (Procedure was performed with patient consent. Initial anesthetization and initial attempt was performed by nurse practitioner Yari Holder with myself at bedside. Unfortunately initial attempt with trocar and Seldinger technique in spite of good technique did not elicit any ascites fluid. Parac)
[2022-10-12 17:04] VITALS: BP 112/94; PULSE 86; RESP 16; O2SAT 100
== END 2022-10-12 17:13 | disposition home or self-care (01) ==
PROVIDERS: Emergency Provider Student in an Organized Health Care Education/Training Program; PCP Family Medicine
DX: K70.11 Alcoholic hepatitis with ascites (principal)
CPT/HCPCS: 49082

== ENCOUNTER 2022-10-18 07:44 | Day surgery (SDC) | payer MEDICARE, MEDICAID, SELFPAY ==
--- NOTE | 2022-10-17 20:22 | PDOC.DSDIS_ITS ---
Date of service: 10/18/22 Time of Service: 10:41 Discharge Plan Disposition Patient Disposition: Home Condition: Good Discharge Details Reason For Visit: Paracentesis Attending Provider: Wing Del Toro Primary Care Provider: Dillon Muller Home Meds and New Rx's Prescriptions: Continued nitroglycerin [Nitrostat] 0.4 mg tablet, sublingual 0.4 mg sublingual Q5M PRN Rx Instructions: do not exceed 3 doses per episode lactulose 20 gram/30 mL solution 30 ml PO DAILY PRN Rx Instructions: to achieve 3-4 stools/day 07/28/21 cgc spironolactone 50 mg tablet 200 mg PO DAILY Hold Instructions: Resume on 03/05/22. Rx Instructions: [place] [facility] [place]/06/22 acetaminophen 500 mg Tablet 1,000 mg PO Q6H PRN Xifaxan 550 mg tablet 550 mg PO BID Label Comments: TAKE ONE TABLET BY MOUTH TWICE A DAY. Pt. states she doesnt take furosemide 80 mg tablet 80 mg PO DAILY Label Comments: TAKE ONE TABLET BY MOUTH EVERY DAY gabapentin 100 mg Tablet 200 mg PO HS PRN hydrocortisone [Procto-Med HC] 2.5 % cream with perineal applicator 1 applic topical PRN PRN Label Comments: APPLY TWO TO FOUR TIMES PER DAY NEEDED metoprolol tartrate 50 mg tablet 1 tab PO TID Label Comments: TAKE ONE TABLET BY MOUTH EVERY 8 HOURS magnesium oxide 400 mg magnesium tablet 200 mg PO BID acetaminophen 325 mg Capsule 325 mg PO ONCE PRN Discharge Instructions Activity:: Activity as Tolerated Remove Dressings/Wound Care:: 24 hours Shower/Bathe:: 24 hours Diet:: As Tolerated Discharge Orders Discharge Orders: Discharge Order (Routine); Ordered 10/17/22 Ordered By: Wing Del Toro DS: Diagnosis Discharge Diagnosis (1) Ascites due to chronic alcoholic hepatitis: Status: Acute Asessment and Plan: Follow-up for your next paracentesis in 2 weeks
--- NOTE | 2022-10-17 20:24 | ROE_ITS ---
Date of service: 10/18/22 Time of Service: 10:43 Operative Note Operative Note DATE OF PROCEDURE: 10/18/22 PRE-OP DIAGNOSIS: Ascites POST-OP DIAGNOSIS: same PROCEDURE: Paracentesis SURGEON: Wing Del Toro ANESTHESIA TYPE: Local By Surgeon ESTIMATED BLOOD LOSS: 5 PATHOLOGY: none sent COMPLICATIONS: None Patient was transported to: same day Patient's condition: stable Procedure Description: I started by performing a limited ultrasound of the abdomen to identify appropriate site for paracentesis. Next, I selected the right lower quadrant as the ideal site for paracentesis. I then prepped and draped the abdomen. Next, using ultrasound guidance, I anesthetized the skin with 1% lidocaine with epinephrine. I used the ultrasound to guide the needle down to the peritoneal level which was also anesthetized. I then made a small incision in the skin with a 11 blade scalpel. Next, I advanced the 5 [place]e paracentesis needle and catheter through the incision and into the peritoneal cavity under the direct vision of the ultrasound. I aspirated straw-colored ascites. Next, I gently advance the catheter and remove the needle. I affixed drainage tubing, and began draining the ascites with the assistance of Vacutainer's. I drained 3300 mL of ascites. As the flow decreased, I assisted the patient to the right lateral decubitus position to improve drainage. I also transitioned to hand pumping. Once the ascites stopped flowing, I removed the catheter and used a Band-Aid to dress wound. In total I drained 7300 mL of ascites.
[2022-10-18 08:30] VITALS: RESP 18; TEMP 36.4
[2022-10-18] MEDS: Normal Saline Flush 10 ML SYR IV ×2 (09:06→10:56)
[2022-10-18 10:40] VITALS: BP 107/67; PULSE 73; RESP 18; TEMP 36.2; O2SAT 100
[2022-10-18] MEDS: ALBUMIN HUMAN 25 GM/100 ML BTL IVPB (10:55)
[2022-10-18 11:16] VITALS: BP 104/80; PULSE 86; RESP 18; TEMP 36.1; O2SAT 100
== END 2022-10-18 11:35 | disposition home or self-care (01) ==
PROVIDERS: PCP Family Medicine; Visit Provider Surgery
PROC: 0W9G3ZZ Drainage of Peritoneal Cavity, Percutaneous Approach (ICD-10-PCS; CPT 49082; principal; 2022-10-18 09:30)
DX: K70.11 Alcoholic hepatitis with ascites (principal)
CPT/HCPCS: 49082; 96365

== ENCOUNTER 2022-10-20 15:07 | Inpatient (IN) | payer MEDICARE, MEDICAID, SELFPAY ==
[2022-10-20] VITALS (60 sets, daily range): BP systolic 71–122; BP diastolic 38–99; PULSE 70–149; RESP 14–25; TEMP 35.9–37.2; O2SAT 93–98
--- NOTE | 2022-10-20 15:15 | RT.EKG_ITS ---
APPROVED REPORT Exam: Resting ECG Reason for Exam: tachycardia Patient Location: E HR:118 bpm ECG Measurements Heart Rate 118 AXIS AL [id number] P [id number] QRSd 105 QRS 89 QT 315 T 257 QTc 442 Conclusion Atrial fibrillation...V-rate 91-138, irreg A-activity Ventricular premature complex...V complex w/ short R-R interval Low voltage, extremity leads...all extremity leads <0.5mV
[2022-10-20 15:44] LABS: Abs Immature Grans 0.04 10^3/uL (0.0-0.06); Absolute Basophil Count 0.04 10^3/uL (0.0-0.2); Absolute Eosinophil Count 0.02 10^3/uL (0.0-0.7); Absolute Lymphocyte Count 0.49 10^3/uL (1.2-3.4); Absolute Monocyte Count 0.84 10^3/uL (0.1-0.8); Absolute Neutrophil Count 6.67 10^3/uL (1.2-6.7); Basophils % 0.5; Eosinophils % 0.2; HCT 37.3 % (36.0-46.0); HGB 12.8 g/dL (11.2-15.7); Immature Grans % 0.5; MCH 32.4 pg (27.0-33.0); MCHC 34.3 % (32.0-36.0); MCV 94 fL (80-95); MPV 10.3 fL (8.0-11.0); Monocytes % 10.4; Neutrophils % 82.4; Platelet Count 172 10^3/uL (130-400); RBC 3.95 10^6/uL (3.93-5.22); RDW 15.9 % (11.7-14.6); RDW-SD 55.5 fL
[2022-10-20 15:58] LABS: ALT 34 U/L (14-59); AST 38 U/L (15-37); Albumin 2.8 g/dL (3.4-5.0); Alkaline Phosphatase 157 U/L (46-116); Anion Gap 8.9 mmol/L (3-11); BUN 37 mg/dL (7-18); Bilirubin, Total 3.5 mg/dL (0.2-1.0); CO2 25.1 mmol/L (21.0-32.0); CREATININE 2.1 mg/dL (0.55-1.02); Calcium 8.7 mg/dL (8.5-10.1); Chloride 99 mmol/L (98-107); Estimated GFR 27.31 (mL/min/1.73m2); Glucose 82 mg/dL (74-106); Lipase 54 U/L (16-77); Magnesium 1.4 mg/dL (1.8-2.4); Potassium 3.8 mmol/L (3.5-5.1); Sodium 133 mmol/L (136-145); Total Protein 5.8 g/dL (6.4-8.2)
[2022-10-20 16:00] LABS: Ammonia 35 umol/L (11-32)
--- NOTE | 2022-10-20 16:00 | DI.CT_ITS ---
Exam(s) CT ABDOMEN PELVIS WO EXAM: CT ABDOMEN PELVIS WO CLINICAL HISTORY: recent pericentesis, abd pain, chills. TECHNIQUE: Imaging Protocol: Axial computed tomography images with coronal and sagittal reformatted images were created and reviewed. Oral: no COMPARISON: CT CT ABDOMEN PELVIS WO from 01/19/2022 FINDINGS: Exam is extremely limited without oral and IV contrast, specially evaluation of the bowel. ABDOMEN: Lung Bases: Stable appearance right pleural effusion and adjacent basilar atelectasis. Liver: Stable appearance of severe shrunken, cirrhotic appearance and multiple low-density lesions. Gallbladder and biliary tract: Stable appearance of cholelithiasis. No biliary dilatation. Pancreas: Normal density, no abnormal calcifications or inflammatory process. Spleen: Normal. Kidneys: Normal size, contour and axis. No radiodense stones or obstructive uropathy. No masses seen. Adrenal glands: No masses seen. Lymph nodes: Within normal limits. Abdominal Aorta: Abdominal portion non-dilated. PELVIS: Bladder: Symmetric distention, no gross wall thickening. Bowel: Not well evaluated due due to large amount of surrounding ascites, lack of oral and IV contras t. Question of some wall thickening involving the duodenum. Peritoneal cavity: Large quantity of ascites however this appears somewhat decreased when compared wi th the previous exam. Body wall edema again noted. No visible free air. Reproductive organs: Within normal limits. Bones: Scoliosis. IMPRESSION: Decrease in assess ascites compared to the prior exam. No evidence of free air or abscess collection . No findings to suggest obstruction. Stable appearance of right pleural effusion and adjacent basi lar atelectasis. Findings called to Dr. Mauricio Leiva of the emergency department. RADIATION DOSE DELIVERED: 989.35mGy.cm Total DLP DATA REPOSITORY: All CT scans at this facility are submitted to the National Radiology Data Registry (NRDR) Dose Index Registry (DIR) with the [place] [employer] (A[employer]). RADIATION OPTIMIZATION: All CT scans at this facility use at least one of these dose optimization te chniques: automated exposure control; mA and/or kV adjustment per patient size (includes targeted exa ms where dose is matched to clinical indication); or iterative reconstruction.
--- NOTE | 2022-10-20 16:22 | ED.GENADUL_ITS ---
Discharge Plan Disposition Patient Disposition: Admit to [facility] Condition: Critical Discharge Details Chief Complaint: Abd Prob Clinical Impression: SBP (spontaneous bacterial peritonitis), Cirrhosis, Abdominal pain Primary Care Provider: Dillon Muller ED Provider: Mauricio Leiva Home Meds and New Rx's Prescriptions: No Action nitroglycerin [Nitrostat] 0.4 mg tablet, sublingual 0.4 mg sublingual Q5M PRN Rx Instructions: do not exceed 3 doses per episode lactulose 20 gram/30 mL solution 30 ml PO DAILY PRN Rx Instructions: to achieve 3-4 stools/day 07/28/21 cgc spironolactone 50 mg tablet 200 mg PO DAILY Hold Instructions: Resume on 03/05/22. Rx Instructions: from [facility] – [place] hepatology note 01/06/22 acetaminophen 500 mg Tablet 1,000 mg PO Q6H PRN Xifaxan 550 mg tablet 550 mg PO BID Label Comments: TAKE ONE TABLET BY MOUTH TWICE A DAY. Pt. states she doesnt take furosemide 80 mg tablet 80 mg PO DAILY Label Comments: TAKE ONE TABLET BY MOUTH EVERY DAY gabapentin 100 mg Tablet 200 mg PO HS PRN hydrocortisone [Procto-Med HC] 2.5 % cream with perineal applicator 1 applic topical PRN PRN Label Comments: APPLY TWO TO FOUR TIMES PER DAY NEEDED metoprolol tartrate 50 mg tablet 1 tab PO TID Label Comments: TAKE ONE TABLET BY MOUTH EVERY 8 HOURS magnesium oxide 400 mg magnesium tablet 200 mg PO BID acetaminophen 325 mg Capsule 325 mg PO ONCE PRN Medical Decision Making 1625 --55-year-old female with history of chronic hepatitis C and cirrhosis, ascites requiring frequent paracentesis, here 3 days status post outpatient paracentesis with right lower abdominal pain that started today after having bowel movements as well as associated chills today. Patient is tender in her right lower abdomen but does have rebound tenderness. Patient has low-grade fever here. She is tachycardic and hypotensive. I will give IV fluid bolus for resuscitation. Consider post paracentesis complication including perforated viscus versus bacterial peritonitis. Labs reviewed: Hypomagnesemia noted, magnesium 1.4. I will give magnesium 1 g IV. Concern for EARNEST with creatinine 2.1. I will obtain CT of the abdomen pelvis to assess for acute surgical pathology. --CT the abdomen pelvis was interpreted by radiology: Decrease in assess ascites compared to the prior exam.? No evidence of free air or abscess collection.? No findings to suggest obstruction.? Stable appearance of right pleural effusion and adjacent basilar atelectasis. Findings called to Dr. Mauricio Leiva of the emergency department. 1831 -- Patient reassessed multiple times. Despite IV fluid bolus she remains hypotensive. I will initiate treatment with norepinephrine infusion and titrate to maintain MAP greater than 65. Reassessed patient and attempted to identify a accessible area of ascites for diagnostic paracentesis. Unfortunately no fluid collection present that is accessible. I called and spoke with Dr. Del Toro, GENERAL surgeon, he will e valuate the patient. I called and spoke with the hospitalist on-call, Dr. Burk, discussed ED presentation course, he will admit the patient to the ICU and request bridging orders to be placed. 1929 --patient reassessed and MAP improved after 1.5 L and on Levophed drip. Lab Data Lab results reviewed: Yes I reviewed the patient's lab results. Labs: 10/20/22 15:46 Blood Blood Culture - Pending 10/20/22 16:50 Blood Blood Culture - Pending Laboratory Tests Range/Units 10/20/22 10/20/22 10/20/22 15:30 15:30 15:43 WBC (4.4-10.8) 10^3/uL 8.10 RBC (3.93-5.22) 10^6/uL 3.95 Hgb (11.2-15.7) g/dL 12.8 Hct (36.0-46.0) % 37.3 MCV (80-95) fL 94 MCH (27.0-33.0) pg 32.4 MCHC (32.0-36.0) % 34.3 RDW (11.7-14.6) % 15.9 H Plt Count (130-400) 10^3/uL 172 MPV (8.0-11.0) fL 10.3 Immature Gran % 0.5 Neutrophils % 82.4 Lymphocytes % 6.0 Monocytes % 10.4 Eosinophils % 0.2 Basophils % 0.5 Nucleated RBC % (0.0-0.3) % 0.0 Absolute Neutrophils (1.2-6.7) 10^3/uL 6.67 Absolute Lymphocytes (1.2-3.4) 10^3/uL 0.49 L Absolute Monocytes (0.1-0.8) 10^3/uL 0.84 H Absolute Eosinophils (0.0-0.7) 10^3/uL 0.02 Absolute Basophils (0.0-0.2) 10^3/uL 0.04 VBG Lactate (0.6-1.4) mmol/L Sodium (136-145) mmol/L 133 L Potassium (3.5-5.1) mmol/L 3.8 Chloride (98-107) mmol/L 99 Carbon Dioxide (21.0-32.0) mmol/L 25.1 Anion Gap (3-11) mmol/L 8.9 BUN (7-18) mg/dL 37 H Creatinine (0.55-1.02) mg/dL 2.1 H Est GFR (CKD-EPI 2020) (mL/min/1.73m2) 27.31 Glucose (74-106) mg/dL 82 Calcium (8.5-10.1) mg/dL 8.7 Magnesium (1.8-2.4) mg/dL 1.4 L Total Bilirubin (0.2-1.0) mg/dL 3.5 H AST (15-37) U/L 38 H ALT (14-59) U/L 34 Alkaline Phosphatase (46-116) U/L 157 H Ammonia (11-32) umol/L 35 H Total Protein (6.4-8.2) g/dL 5.8 L Albumin (3.4-5.0) g/dL 2.8 L Lipase (16-77) U/L 54 COVID-19 Source SARS-CoV-2 (PCR) (Negative) Range/Units 10/20/22 10/20/22 16:50 17:41 WBC (4.4-10.8) 10^3/uL RBC (3.93-5.22) 10^6/uL Hgb (11.2-15.7) g/dL Hct (36.0-46.0) % MCV (80-95) fL MCH (27.0-33.0) pg MCHC (32.0-36.0) % RDW (11.7-14.6) % Plt Count (130-400) 10^3/uL MPV (8.0-11.0) fL Immature Gran % Neutrophils % Lymphocytes % Monocytes % Eosinophils % Basophils % Nucleated RBC % (0.0-0.3) % Absolute Neutrophils (1.2-6.7) 10^3/uL Absolute Lymphocytes (1.2-3.4) 10^3/uL Absolute Monocytes (0.1-0.8) 10^3/uL Absolute Eosinophils (0.0-0.7) 10^3/uL Absolute Basophils (0.0-0.2) 10^3/uL VBG Lactate (0.6-1.4) mmol/L 2.7 H* Sodium (136-145) mmol/L Potassium (3.5-5.1) mmol/L Chloride (98-107) mmol/L Carbon Dioxide (21.0-32.0) mmol/L Anion Gap (3-11) mmol/L BUN (7-18) mg/dL Creatinine (0.55-1.02) mg/dL Est GFR (CKD-EPI 2020) (mL/min/1.73m2) Glucose (74-106) mg/dL Calcium (8.5-10.1) mg/dL Magnesium (1.8-2.4) mg/dL Total Bilirubin (0.2-1.0) mg/dL AST (15-37) U/L ALT (14-59) U/L Alkaline Phosphatase (46-116) U/L Ammonia (11-32) umol/L Total Protein (6.4-8.2) g/dL Albumin (3.4-5.0) g/dL Lipase (16-77) U/L COVID-19 Source Nasal/Nares SARS-CoV-2 (PCR) (Negative) Negative HPI General Mode of arrival: ambulatory . Date/Time Provider Initiated Documentation: 10/20/22 15:35 . Limitations to Documentation: no limitations . Information obtained by: patient . HPI Narrative: 57-year-old female with multiple medical problems including history of chronic hepatitis C and abdominal ascites requiring regular paracentesis, here with abdominal pain. Patient states that she had paracentesis performed in by surgery on 10/17/2022 where 7 L were removed. She notes pain started at paracentesis site this morning after she had 2 bowel movements. Pain is localized to right lower abdomen. It is now constant and worse on palpation. She does note some associated nausea today and chills. Patient denies urinary symptoms. Related Data Home Medications Medication Instructions Recorded Confirmed nitroglycerin 0.4 mg sublingual 0.4 mg sublingual Q5M PRN 04/05/21 10/20/22 tablet (Nitrostat) lactulose 20 gram/30 mL oral 30 ml PO DAILY PRN 07/29/21 10/20/22 solution acetaminophen 500 mg tablet 1,000 mg PO Q6H PRN 10/05/21 10/20/22 rifaximin 550 mg tablet (Xifaxan) 550 mg PO BID 11/16/21 10/20/22 furosemide 80 mg tablet 80 mg PO DAILY 12/24/21 10/20/22 spironolactone 50 mg tablet 200 mg PO DAILY 01/06/22 10/20/22 gabapentin 100 mg tablet 200 mg PO HS PRN 02/18/22 10/20/22 hydrocortisone 2.5 % topical cream 1 applic topical PRN PRN 03/29/22 10/20/22 with perineal applicator (Procto-Med ) metoprolol tartrate 50 mg tablet 1 tab PO TID 03/29/22 10/20/22 magnesium oxide 200 mg PO BID 05/31/22 10/20/22 acetaminophen 325 mg capsule 325 mg PO ONCE PRN 07/12/22 10/20/22 Allergies Allergy/AdvReac Type Severity Reaction Status Date / Time amphetamine aspartate Allergy Severe Facial Verified 10/20/22 15:18 [From Adderall] Swelling, Blisters, Tongue Swelling, Rash, amphetamine sulfate Allergy Severe Facial Verified 10/20/22 15:18 [From Adderall] Swelling, Blisters, Tongue Swelling, Rash, dextroamphetamine saccharate Allergy Severe Facial Verified 10/20/22 15:18 [From Adderall] Swelling, Blisters, Tongue Swelling, Rash, dextroamphetamine sulfate Allergy Severe Facial Verified 10/20/22 15:18 [From Adderall] Swelling, Blisters, Tongue Swelling, Rash, Penicillins Allergy Intermediate Hives, Verified 10/20/22 15:18 Rash, Tongue Swelling codeine AdvReac Mild Constipatio Verified 10/20/22 15:18 n General Stated Complaint: Abd Prob JOE: 2 Review of Systems All systems reviewed & are unremarkable except as noted in HPI and below Constitutional Constitutional: Reports chills Gastrointestinal Gastrointestinal: Reports as per HPI PFSH All Active Problems (Updated 10/20/22 @ 19:55 by Mauricio Leiva MD) SBP (spontaneous bacterial peritonitis) (Acute) Cirrhosis (Acute) Abdominal pain (Acute) Shock (Acute) History of abdominal paracentesis (Acute) Ascites due to chronic alcoholic hepatitis (Acute) Tense ascites (Acute) Hypertension (Chronic ~02/2022) 03/17/22 [facility] – [place] Cardiology Other ascites (Acute ~01/2022) 02/09/22 [facility] – [place] GI, weekly thoracentesis PAF (paroxysmal atrial fibrillation) (Acute) 02/09/22 [facility] – [place] Cardiology, ZIO Patch placed Chronic heart failure with preserved ejection fraction (Acute) 02/09/22 [facility] – [place] Cardiology Encephalopathy chronic (Acute) Cardiomyopathy (Active 04/22/13) Congestive heart failure (Acute 04/22/13) Pleural effusion (Acute 04/22/13) History of gallstones (Active) Depressive disorder (Active) Anxiety (Active) Adult attention deficit hyperactivity disorder (Active) Constipation (Active) Irritable colon (Active) Smoking history (Active) History of surgery (Active) Uterine ablation approxinmately 2006 Two sections. Chronic hepatitis C (Chronic) Treated and cured, relapsed 02/2021 completed 24 wks Harvoni and ribavirin per note 05/05/22 CKD (chronic kidney disease) stage 4, GFR 15-29 ml/min (Acute) Atrial fibrillation with controlled ventricular rate (Acute) Advanced hepatic cirrhosis (Chronic) Hep C & ETOH Nephrotic syndrome (Acute) Hypokalemia (Acute) Prerenal azotemia (Acute) Cirrhosis of liver with ascites (Acute) 11/10/21 Telehealth [facility] – [place] Gastro Hypokalemia due to excessive renal loss of potassium (Acute) Hydrothorax (Acute) 03/31/21 [facility] – [place] Gastro 02/09/22 [facility] [place] GI Hepatic encephalopathy (Acute) 03/31/21 [facility] Seasonal allergic rhinitis (Acute) 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) (Acute) Per [facility] [place] Gastro note from 05/11/21 Abdominal ascites (Acute) Medical History Anxiety Attention deficit hyperactivity disorder, combined type 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 History of abdominal paracentesis Irritable colon Renal failure syndrome SVT (supraventricular tachycardia) Surgical History section x2 History of ileal conduit History of thoracentesis (~12/28/21) 08/03/20,08/10/20 08/21/20,08/31/20 Hx of tubal ligation S/P abdominal paracentesis (~12/28/21) Family History Mother Hypertensive disorder, systemic arterial Cancer Cervical Father Hypertensive disorder, systemic arterial Maternal Grandfather Diabetes Maternal Grandmother Cancer Ovarian Social History Smoking/Tobacco Use Status: Former Tobacco Use Quit Date: 09/18/18 Smoking risk assessment performed?: Yes Alcohol Intake: former Drug use: Never Substance use type: does not use Adopted: No Caregiver/Support person: No Foster care: No Household members: family Housing: house Number of Children: 4 number of grandchildren: 2 Communication Needs: None Do you need help understanding health information?: Often current occupation: Used to work for [employer] Current gender identity: female What is your relationship status?: How often do you talk on the phone with friends or family?: three or more times per week Panel score (0-1 are the most socially isolated patients): 2 What type of physical activity do you participate in: none Seatbelt use: always Drive intox or ride w/intox hazardous materials driver: No Working smoke detector in home: Yes Fire extinguisher in home: Yes Carbon monox detector in home: Yes Do you feel safe at home: Yes Do you feel safe in your relationship?: Yes Exam Const General: cooperative and no acute distress HENMT Mouth: mucous membranes dry Eyes Conjunctivae: normal conjunctivae Sclera: scleral abnormality bilaterally (icterus) Neck Neck: trachea midline and supple Resp Auscultation: clear to auscultation bilaterally, no rales, no rhonchi and no wheezes Cardio Rhythm: regular rhythm GI Palpation: soft, not firm, no guarding, no masses, not rigid, tender and other (Diffusely, worse right lower quadrant, there is rebound tenderness) Skin General skin exam: jaundice Neuro General: patient alert, patient awake and tone normal Extrem General: no edema Psych Appearance: grossly normal Mental Status: mental status grossly normal Course Vital Signs Vital signs: Vital Signs Temperature 37.2 C 10/20/22 15:11 Pulse 102 H 10/20/22 15:11 Respiratory Rate 18 10/20/22 15:11 Blood Pressure 95/41 L 10/20/22 15:11 Pulse Oximetry 98 10/20/22 15:11 Temperature 37.2 C 10/20/22 15:11 Temperature Source Oral 10/20/22 15:11 Pulse 149 H 10/20/22 15:46 Pulse 111 H 10/20/22 16:00 Respiratory Rate 18 10/20/22 16:00 Respiratory Effort Non-Labored 10/20/22 15:15 Blood Pressure 78/66 L 10/20/22 15:46 Blood Pressure Mean 69 10/20/22 15:46 Blood Pressure Position Sitting 10/20/22 15:11 Pulse Oximetry 98 10/20/22 15:11 Oxygen Delivery Method Room Air 10/20/22 15:11 Oxygen Flow Rate 0 10/20/22 15:11 Pain Level 10 10/20/22 15:11 Lab/Test Results Lab/Test Results: 10/20/22 16:17 Blood Blood Culture - Pending 10/20/22 16:17 Blood Blood Culture - Pending Laboratory Tests Range/Units 10/20/22 10/20/22 10/20/22 15:30 15:30 15:43 WBC (4.4-10.8) 10^3/uL 8.10 RBC (3.93-5.22) 10^6/uL 3.95 Hgb (11.2-15.7) g/dL 12.8 Hct (36.0-46.0) % 37.3 MCV (80-95) fL 94 MCH (27.0-33.0) pg 32.4 MCHC (32.0-36.0) % 34.3 RDW (11.7-14.6) % 15.9 H Plt Count (130-400) 10^3/uL 172 MPV (8.0-11.0) fL 10.3 Immature Gran % 0.5 Neutrophils % 82.4 Lymphocytes % 6.0 Monocytes % 10.4 Eosinophils % 0.2 Basophils % 0.5 Nucleated RBC % (0.0-0.3) % 0.0 Absolute Neutrophils (1.2-6.7) 10^3/uL 6.67 Absolute Lymphocytes (1.2-3.4) 10^3/uL 0.49 L Absolute Monocytes (0.1-0.8) 10^3/uL 0.84 H Absolute Eosinophils (0.0-0.7) 10^3/uL 0.02 Absolute Basophils (0.0-0.2) 10^3/uL 0.04 Sodium (136-145) mmol/L 133 L Potassium (3.5-5.1) mmol/L 3.8 Chloride (98-107) mmol/L 99 Carbon Dioxide (21.0-32.0) mmol/L 25.1 Anion Gap (3-11) mmol/L 8.9 BUN (7-18) mg/dL 37 H Creatinine (0.55-1.02) mg/dL 2.1 H Est GFR (CKD-EPI 2020) (mL/min/1.73m2) 27.31 Glucose (74-106) mg/dL 82 Calcium (8.5-10.1) mg/dL 8.7 Magnesium (1.8-2.4) mg/dL 1.4 L Total Bilirubin (0.2-1.0) mg/dL 3.5 H AST (15-37) U/L 38 H ALT (14-59) U/L 34 Alkaline Phosphatase (46-116) U/L 157 H Ammonia (11-32) umol/L 35 H Total Protein (6.4-8.2) g/dL 5.8 L Albumin (3.4-5.0) g/dL 2.8 L Lipase (16-77) U/L 54 Critical Care Time Critical Care Time Critical Care Time: Yes Total Critical Care Time: 45 Attestation: I spent greater than 45 minutes addressing this patient's immediate life threats. Please see MDM section of note. This time was spent engaged in work directly related to the patient's care, exclusive of separate procedures, and failure to initiate these interventions would have likely resulted in clinically significant or life threatening deterioration in the patient's condition.
[2022-10-20] MEDS: MAGNESIUM SULFATE 1 GM/100 ML BAG IVPB (16:33)
[2022-10-20] MEDS: Normal Saline 1,000 ML 1000 ML IV (16:33)
[2022-10-20 17:00] LABS: Lactate 2.7 mmol/L (0.6-1.4)
[2022-10-20 17:45] LABS: Source Nasal/Nares
--- NOTE | 2022-10-20 17:48 | NUR.NOTE ---
Nursing Note: patient is refusing norepinephrine for hypotension, tried to teach patient the importance and she stated I dont think its that bad, I don't want it. will inform
[2022-10-20] MEDS: levoFLOXacin 750 MG/150 ML BAG 100 MG IVPB (17:55)
[2022-10-20] MEDS: Norepinephrine in D5W 8 MG/250 ML BAG 6.953 MG IV (18:07)
[2022-10-20 18:21] LABS: COVID-19 PCR Negative (Negative)
--- NOTE | 2022-10-20 18:35 | SCONE_ITS ---
Date of service: 10/20/22 Time of Service: 18:36 Assessment and Plan Assessment and plan (1) Shock: Status: Acute Assessment and plan: Erin has signs and symptoms of shock, although the exact etiology is challenging to decipher. Certainly, she is at risk for septic shock, and many of her clinical features seem consistent with spontaneous bacterial peritonitis. Unfortunately, relatively low volume of her ascites at this time would make paracentesis quite challenging and risky. In that regards, I think it is reasonable to treat SBP with empiric broad-spectrum antibiotics at this point, and see how she responds. Pneumonia, urinary tract infection, bacteremia should also remain in the differential diagnosis, although the empiric treatment of the SBP should cover most of those etiologies as well. I suppose this could also be fulminant hepatic failure with distributive shock as a sequelae of that. I agree with titration of intravenous fluids to support her mean arterial blood pressure, and augmentation with norepinephrine. The volume of her ascites and the short duration of time with which it has reaccumulated is extremely concerning. Unfortunately, I think her options are quite limited in that regard. If she desires aggressive treatment for her liver disease, then she would probably require transfer down to [facility] for more advanced interventions. History of Present Illness History of Present Illness Chief Complaint: Abdominal pain Narrative: Erin is a 57-year-old woman with advanced cirrhosis, and chronic ascites requiring frequent paracentesis. Most recently, she underwent paracentesis on October 12 for almost 5 L. Just 6 days later, she had accumulated another 7 L and was symptomatic with shortness of breath. I performed paracentesis at that time with improvement of symptoms. She felt well Monday evening, and most of Monday, but by this morning, she was complaining of abdominal pain and fatigue. She was unable to get out of bed. She attributes it to changes in her bowel habits, and perhaps a side effect of lactulose. Review of Systems Constitutional Constitutional: Reports fever(s), Reports frequent falls, Reports lethargy, Reports poor appetite and Reports weakness Eyes Eyes: Denies change in vision ENT Ears, Nose, Mouth, and Throat: Reports dizziness and Reports dry mouth Cardiovascular Cardiovascular: Denies chest pain and Reports dyspnea Respiratory Respiratory: Denies chest congestion, Denies cough and Reports dyspnea Gastrointestinal Gastrointestinal: Reports abdominal pain, Reports change in bowel habits and Reports constipation Genitourinary Genitourinary: Reports system reviewed and no additional complaints, except as documented Musculoskeletal Musculoskeletal: Reports abnormal gait and Reports myalgias Integumentary/Breasts Skin/Breast: Reports pruritus Neurologic Neurologic: Reports abnormal gait, Reports behavioral changes, Reports confusion, Reports dizziness, Reports frequent falls and Reports weakness Psychiatric Psychiatric: Reports behavioral changes, Reports change in appetite and Reports confusion PFSH All Active Problems (Updated 10/20/22 @ 18:53 by Wing Del Toro MD) Shock (Acute) History of abdominal paracentesis (Acute) Ascites due to chronic alcoholic hepatitis (Acute) Tense ascites (Acute) Hypertension (Chronic ~02/2022) [place] [facility] [place] [facility] Other ascites (Acute ~01/2022) 02/09/22 [facility] [place] [facility], [place] thoracentesis PAF (paroxysmal atrial fibrillation) (Acute) 02/09/22 [facility] [place] [facility], ZIO Patch placed Chronic heart failure with preserved ejection fraction (Acute) 02/09/22 [facility] [place] [facility] Encephalopathy chronic (Acute) Cardiomyopathy (Active 04/22/13) Congestive heart failure (Acute 04/22/13) Pleural effusion (Acute 04/22/13) History of gallstones (Active) Depressive disorder (Active) Anxiety (Active) Adult attention deficit hyperactivity disorder (Active) Constipation (Active) Irritable colon (Active) Smoking history (Active) History of surgery (Active) Uterine ablation approxinmately 2006 Two sections. Chronic hepatitis C (Chronic) Treated and cured, relapsed 02/2021 completed 24 wks Harvoni and ribavirin per note 05/05/22 CKD (chronic kidney disease) stage 4, GFR 15-29 ml/min (Acute) Atrial fibrillation with controlled ventricular rate (Acute) Advanced hepatic cirrhosis (Chronic) Hep C & ETOH Nephrotic syndrome (Acute) Hypokalemia (Acute) Prerenal azotemia (Acute) Cirrhosis of liver with ascites (Acute) 11/10/21 [place] [facility] [place] Hypokalemia due to excessive renal loss of potassium (Acute) Hydrothorax (Acute) 03/31/21 [facility] [place] [facility] 02/09/22 [facility] [place] [facility] Hepatic encephalopathy (Acute) 03/31/21 telehealth [facility] [place] [facility] Seasonal allergic rhinitis (Acute) 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) (Acute) Per [facility] [place] [facility] [place] from [place]/11/21 Abdominal ascites (Acute) Medical History Anxiety Attention deficit hyperactivity disorder, combined type 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 History of abdominal paracentesis Irritable colon Renal failure syndrome SVT (supraventricular tachycardia) Surgical History section x2 History of ileal conduit History of thoracentesis (~12/28/21) 08/03/20,08/10/20 08/21/20,08/31/20 Hx of tubal ligation S/P abdominal paracentesis (~12/28/21) Family History Mother Hypertensive disorder, systemic arterial Cancer Cervical Father Hypertensive disorder, systemic arterial Maternal Grandfather Diabetes Maternal Grandmother Cancer Ovarian Social History Smoking/Tobacco Use Status: Former Tobacco Use Quit Date: 09/18/18 Smoking risk assessment performed?: Yes Alcohol Intake: former Drug use: Never Substance use type: does not use Adopted: No Caregiver/Support person: No Foster care: No Household members: family Housing: house Number of Children: 4 number of grandchildren: 2 Communication Needs: None Do you need help understanding health information?: Often current occupation: Used to work for [employer] Current gender identity: female What is your relationship status?: How often do you talk on the phone with friends or family?: three or more times per week Panel score (0-1 are the most socially isolated patients): 2 What type of physical activity do you participate in: none Seatbelt use: always Drive intox or ride w/intox p d driver: No Working smoke detector in home: Yes Fire extinguisher in home: Yes Carbon monox detector in home: Yes Do you feel safe at home: Yes Do you feel safe in your relationship?: Yes Exam Const General: cooperative and ill appearing Nutritional Appearance: underweight Orientation: awake, oriented to person and oriented to place HENTX Head: atraumatic Eyes Alignment and Position: alignment normal Sclera: scleral abnormality bilaterally (Scleral icterus) Pupils: PERRL Neck Neck: normal visual inspection, full ROM, no lymphadenopathy, trachea midline and supple Resp Auscultation: diminished lung sounds on the right Cardio Jugular venous pressure: no JVD Rate: regular rate Rhythm: regular rhythm GI Inspection: distended Palpation: soft, no guarding and tender (Minimal tenderness) Auscultation: hypoactive bowel sounds Skin General skin exam: jaundice Extrem Right lower extremity: edema Results Last Vital Signs Temp 99.0 F 10/20/22 15:11 Pulse 97 H 10/20/22 18:31 Resp 19 10/20/22 16:10 BP 79/56 L 10/20/22 18:31 Pulse Ox 98 10/20/22 15:11 Labs Result diagrams: 10/20/22 15:30 10/20/22 15:30 Labs: Laboratory Results - last 24 hr 10/20/22 10/20/22 10/20/22 15:30 15:30 15:43 WBC 8.10 RBC 3.95 Hgb 12.8 Hct 37.3 MCV 94 MCH 32.4 MCHC 34.3 RDW 15.9 H Plt Count 172 MPV 10.3 Immature Gran % 0.5 Neutrophils % 82.4 Lymphocytes % 6.0 Monocytes % 10.4 Eosinophils % 0.2 Basophils % 0.5 Nucleated RBC % 0.0 Absolute Neutrophils 6.67 Absolute Lymphocytes 0.49 L Absolute Monocytes 0.84 H Absolute Eosinophils 0.02 Absolute Basophils 0.04 VBG Lactate Sodium 133 L Potassium 3.8 Chloride 99 Carbon Dioxide 25.1 Anion Gap 8.9 BUN 37 H Creatinine 2.1 H Est GFR (CKD-EPI 2020) 27.31 Glucose 82 Calcium 8.7 Magnesium 1.4 L Total Bilirubin 3.5 H AST 38 H ALT 34 Alkaline Phosphatase 157 H Ammonia 35 H Total Protein 5.8 L Albumin 2.8 L Lipase 54 COVID-19 Source SARS-CoV-2 (PCR) 10/20/22 10/20/22 16:50 17:41 WBC RBC Hgb Hct MCV MCH MCHC RDW Plt Count MPV Immature Gran % Neutrophils % Lymphocytes % Monocytes % Eosinophils % Basophils % Nucleated RBC % Absolute Neutrophils Absolute Lymphocytes Absolute Monocytes Absolute Eosinophils Absolute Basophils VBG Lactate 2.7 H* Sodium Potassium Chloride Carbon Dioxide Anion Gap BUN Creatinine Est GFR (CKD-EPI 2020) Glucose Calcium Magnesium Total Bilirubin AST ALT Alkaline Phosphatase Ammonia Total Protein Albumin Lipase COVID-19 Source Nasal/Nares SARS-CoV-2 (PCR) Negative Imaging Abdomen CT scan report/results: report reviewed and image reviewed CT scan - pelvis: report reviewed and image reviewed
[2022-10-20] MEDS: Normal Saline 500 ML IV (18:39)
[2022-10-20] MEDS: Ondansetron 4 MG/2 ML VIAL (19:30)
[2022-10-20] MEDS: metroNIDAZOLE 500 MG/100 ML BAG 100 MG IVPB (19:45)
[2022-10-20 20:02] LABS: INR 1.3 (0.9-1.1); Prothrombin Time 13.1 sec (9.3-11.0)
--- NOTE | 2022-10-20 20:16 | W.PM.HP.N ---
Date of service: 10/20/22 Time of Service: 20:17 Assessment and Plan Assessment and plan (1) Shock: Status: Acute Assessment and plan: Initially low BP with fever/chills and elevated lactate in this high risk patient. She was given 2 liters of IV LR and norepinephrine drip started. She still looks slightly dry, though with ascites and h/o CHF there is a risk we could exacerbate these problems if we are too aggressive. For now, BP good, she feels better, try titrating back down. (2) SBP (spontaneous bacterial peritonitis): Status: Acute Assessment and plan: SBP must be presumptive diagnosis given her history and new abdominall pain. There was not enough fluid to tap in ED, so decision was made to proceed with antibiotics. Surgery DR. Del Toro consulted. Her MARIO-SOFA score is 9, which puts her in severe range. Given PCN allergy that is severe, we can't use preferred agent which are carbapenems or 3rd generation cephalosporin, so will continue levoflxacin and metronidazole. (3) Chronic heart failure with preserved ejection fraction: Status: Acute Assessment and plan: I don't see signs of CHF currently, in fact she still looks a little dry. Monitor wit addtional fluids. 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 She regular follow up at [facility] [place] [facility], and has been stable to improved since successfully treated HCV last year. Monitor renal function (5) Acute on chronic renal failure: Status: Acute Assessment and plan: Elevated BUN/Cr from baseline is concerning as this is a poor prognostic indicator with cirrhosis. She denies NSAID use. Will add albumin given IV given worse renal function. Holding diuretics as well. (6) PAF (paroxysmal atrial fibrillation): Status: Acute Assessment and plan: NOt on anticoagulation given bleeding risk. Holding metoprolol given low BPs, but restart when we are able. (7) Hypomagnesemia: Status: Acute Assessment and plan: Given 1g in ED. Repeat in AM and rebolus prn (8) DVT prophylaxis: Status: Resolved Assessment and plan: high bleeding risk, not on anticoagulation. (9) Discharge planning issues: Status: Acute Assessment and plan: Stable in ICU on pressor. Clinically improving but needs close monitoring. History of Present Illness History of Present Illness Chief Complaint: abdominal pain Narrative: 57 yo F with history of decompensated hepatic cirrhosis from HCV who gets every 2 week paracentesis presenting 2 days after the most recent paracentesis with abdominal pain worse at the puncture wound on her abdomen. She felt well when she woke up. Around mid day she started getting pain in her right lower abdomen. She states she took lactulose and had to strain on her second BM and the pain started not too long after that, so she wonders if it was related to straining. She also states she had clear drainage from the paracentesis site the last 2 days since the procedure was done, but this isn't abnormal for her. The pain is constant, sharp, with some pressure. No radiation. At around 2:30pm she started feeling feverish, then cold chills. At this point she came into the emergency room. She denies any change in her diet. She does not drink alcohol for many years. She has been taking her medication regularly. In the ED a clear large collection of ascitic fluid was not available per [facility], so paracentesis was not repeated. Review of Systems Constitutional Constitutional: Denies anorexia, Denies headache(s) and Reports lethargy Eyes Eyes: Denies change in vision and Denies irritation ENT Ears, Nose, Mouth, and Throat: Denies dysphagia, Denies dizziness, Reports dry mouth, Denies headache(s), Denies epistaxis, Denies mouth lesions, Denies nasal congestion, Denies nasal discharge and Denies sore throat Cardiovascular Cardiovascular: Denies chest pain, Reports lightheadedness, Denies palpitations and Denies dyspnea on exertion Respiratory Respiratory: Denies cough, Denies excessive phlegm production, Denies dyspnea on exertion and Denies wheezing Gastrointestinal Gastrointestinal: Denies melena, Denies hematochezia, Denies change in stool character, Denies dysphagia, Denies heartburn, Reports nausea (after first antibiotic, now resolved) and Denies vomiting Genitourinary Genitourinary: Denies hematuria, Denies dysuria and Denies urinary incontinence Integumentary/Breasts Skin/Breast: Denies rash and Denies skin ulcer Neurologic Neurologic: Denies confusion, Denies dizziness, Denies headache(s) and Denies sensory deficit Psychiatric Psychiatric: Denies anxiety, Denies confusion and Denies mood swings Endocrine Endocrine: Denies palpitations Hematologic/Lymphatic Hematologic/Lymphatic: Denies easy bleeding Allergic/Immunologic Allergic/Immunologic: Denies wheezing PFSH All Active Problems Discharge planning issues (Acute) Hypomagnesemia (Acute) Acute on chronic renal failure (Acute) SBP (spontaneous bacterial peritonitis) (Acute) Abdominal pain (Acute) Shock (Acute) History of abdominal paracentesis (Acute) Ascites due to chronic alcoholic hepatitis (Acute) Tense ascites (Acute) Hypertension (Chronic ~02/2022) 03/17/22 [facility] [place] [facility] Other ascites (Acute ~01/2022) 02/09/22 [facility] [place] [facility], weekly thoracentesis PAF (paroxysmal atrial fibrillation) (Acute) 02/09/22 [facility] [place] [facility], ZIO Patch placed Chronic heart failure with preserved ejection fraction (Acute) 02/09/22 [facility] [place] [facility] Encephalopathy chronic (Acute) Congestive heart failure (Acute 04/22/13) Pleural effusion (Acute 04/22/13) History of gallstones (Active) Depressive disorder (Active) Anxiety (Active) Adult attention deficit hyperactivity disorder (Active) Constipation (Active) Irritable colon (Active) Smoking history (Active) History of surgery (Active) Uterine ablation approxinmately 2006 Two sections. Chronic hepatitis C (Chronic) Treated and cured, relapsed 02/2021 completed 24 wks Harvoni and ribavirin per note 05/05/22 CKD (chronic kidney disease) stage 4, GFR 15-29 ml/min (Acute) Atrial fibrillation with controlled ventricular rate (Acute) Advanced hepatic cirrhosis (Chronic) Hep C & ETOH Nephrotic syndrome (Acute) Hypokalemia (Acute) Cirrhosis of liver with ascites (Acute) 11/10/21 Telehealth [facility] [place] [facility] Hypokalemia due to excessive renal loss of potassium (Acute) Hydrothorax (Acute) 03/31/21 [facility] [place] [facility] 02/09/22 [facility] [place] [facility] Hepatic encephalopathy (Acute) [facility] [place] [facility] Seasonal allergic rhinitis (Acute) 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) (Acute) Per [facility] [place] [facility] note from 05/11/21 Medical History Anxiety Attention deficit hyperactivity disorder, combined type 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 History of abdominal paracentesis Irritable colon Renal failure syndrome SVT (supraventricular tachycardia) Surgical History section x2 History of ileal conduit History of thoracentesis (~12/28/21) 08/03/20,08/10/20 08/21/20,08/31/20 Hx of tubal ligation S/P abdominal paracentesis (~12/28/21) Family History (Updated 10/20/22 @ 21:43 by Aniket Burk) Mother Hypertensive disorder, systemic arterial Cancer Cervical Father Hypertensive disorder, systemic arterial Maternal Grandfather Diabetes Maternal Grandmother Cancer Ovarian Other Cirrhosis due to hemochromatosis Social History (Updated 10/20/22 @ 21:45 by Aniket Burk) Smoking/Tobacco Use Status: Former Tobacco Use Quit Date: 09/18/18 Smoking risk assessment performed?: Yes Alcohol Intake: former Drug use: Never Substance use type: does not use Adopted: No Caregiver/Support person: No Foster care: No Household members: family Housing: house Number of Children: 4 number of grandchildren: 2 Communication Needs: None Do you need help understanding health information?: Often current occupation: Used to work for [employer] Current gender identity: female What is your relationship status?: How often do you talk on the phone with friends or family?: three or more times per week Panel score (0-1 are the most socially isolated patients): 2 What type of physical activity do you participate in: none Seatbelt use: always Drive intox or ride w/intox waste collection driver: No Working smoke detector in home: Yes Fire extinguisher in home: Yes Carbon monox detector in home: Yes Do you feel safe at home: Yes Do you feel safe in your relationship?: Yes Additional Social history: Lives with and youngest daughter in [place] 2 dogs. Disabled Meds Allergies and Home Medications Allergies Allergy/AdvReac Type Severity Reaction Status Date / Time amphetamine aspartate Allergy Severe Facial Verified 10/20/22 15:18 [From Adderall] Swelling, Blisters, Tongue Swelling, Rash, amphetamine sulfate Allergy Severe Facial Verified 10/20/22 15:18 [From Adderall] Swelling, Blisters, Tongue Swelling, Rash, dextroamphetamine saccharate Allergy Severe Facial Verified 10/20/22 15:18 [From Adderall] Swelling, Blisters, Tongue Swelling, Rash, dextroamphetamine sulfate Allergy Severe Facial Verified 10/20/22 15:18 [From Adderall] Swelling, Blisters, Tongue Swelling, Rash, Penicillins Allergy Intermediate Hives, Verified 10/20/22 15:18 Rash, Tongue Swelling codeine AdvReac Mild Constipatio Verified 10/20/22 15:18 n Home Medications Medication Instructions Recorded Confirmed Type nitroglycerin 0.4 mg sublingual 0.4 mg sublingual Q5M PRN 04/05/21 10/20/22 History tablet (Nitrostat) lactulose 20 gram/30 mL oral 30 ml PO DAILY PRN 07/29/21 10/20/22 History solution acetaminophen 500 mg tablet 1,000 mg PO Q6H PRN 10/05/21 10/20/22 History rifaximin 550 mg tablet (Xifaxan) 550 mg PO BID 11/16/21 10/20/22 History furosemide 80 mg tablet 80 mg PO DAILY 12/24/21 10/20/22 History spironolactone 50 mg tablet 200 mg PO DAILY 01/06/22 10/20/22 History gabapentin 100 mg tablet 200 mg PO HS PRN 02/18/22 10/20/22 History hydrocortisone 2.5 % topical cream 1 applic topical PRN PRN 03/29/22 10/20/22 History with perineal applicator (Procto-Med HC) metoprolol tartrate 50 mg tablet 1 tab PO TID 03/29/22 10/20/22 History magnesium oxide 200 mg PO BID 05/31/22 10/20/22 History acetaminophen 325 mg capsule 325 mg PO ONCE PRN 07/12/22 10/20/22 History Exam Narrative Exam Narrative: GEN: Alert and oriented, pleasant and cooperative, quite talkative and occaionally tangetial but able to give linear history. No acute distress at rest. HEENT: Head atraumatic. Conjunctiva clear, slight icterus. PEERL, EOMI. no rhinorrhea. MMM, OP benign. Neck is supple with no masses or lymphadenopathy, trachea midline LUNGS: CTAB with normal effort, somewhat deminished right base. CV: irregularly irregular, borderline tachy, with no murmurs, gallops, or rubs. ABD: hypoactive BS, soft, mildly distended, tender around puncture site left mid/lower abdomen, mildly diffusely tender. I don't appreciate mass or organomegaly to palpation or purcussion. EXT: no cyanosis, clubbing. trace meredith edema MSK: No joint redness or swelling NEURO: CN 2-12 grossly intact. Normal movement of 4 extremities. Normal speech and coordination. + asterixis SKIN: No rashes or open wounds, hands dry, mild jaundice. PSYCH: normal mood and affect Results Imaging Abdomen CT scan report/results: report reviewed (Decrease in assess ascites compared to the prior exam. No evidence of free air or abscess collection. No findings to suggest obstruction. Stable appearance of right pleural effusion and adjacent basilar atelectasis.) EKG: report reviewed Labs Result diagrams: 10/20/22 15:30 10/20/22 15:30 Labs: Laboratory Results - last 24 hr 10/20/22 10/20/22 10/20/22 15:30 15:30 15:30 WBC 8.10 RBC 3.95 Hgb 12.8 Hct 37.3 MCV 94 MCH 32.4 MCHC 34.3 RDW 15.9 H Plt Count 172 MPV 10.3 Immature Gran % 0.5 Neutrophils % 82.4 Lymphocytes % 6.0 Monocytes % 10.4 Eosinophils % 0.2 Basophils % 0.5 Nucleated RBC % 0.0 Absolute Neutrophils 6.67 Absolute Lymphocytes 0.49 L Absolute Monocytes 0.84 H Absolute Eosinophils 0.02 Absolute Basophils 0.04 PT 13.1 H INR 1.3 H VBG Lactate Sodium 133 L Potassium 3.8 Chloride 99 Carbon Dioxide 25.1 Anion Gap 8.9 BUN 37 H Creatinine 2.1 H Est GFR (CKD-EPI 2020) 27.31 Glucose 82 Calcium 8.7 Magnesium 1.4 L Total Bilirubin 3.5 H AST 38 H ALT 34 Alkaline Phosphatase 157 H Ammonia Total Protein 5.8 L Albumin 2.8 L Lipase 54 COVID-19 Source SARS-CoV-2 (PCR) 10/20/22 10/20/22 10/20/22 15:43 16:50 17:41 WBC RBC Hgb Hct MCV MCH MCHC RDW Plt Count MPV Immature Gran % Neutrophils % Lymphocytes % Monocytes % Eosinophils % Basophils % Nucleated RBC % Absolute Neutrophils Absolute Lymphocytes Absolute Monocytes Absolute Eosinophils Absolute Basophils PT INR VBG Lactate 2.7 H* Sodium Potassium Chloride Carbon Dioxide Anion Gap BUN Creatinine Est GFR (CKD-EPI 2020) Glucose Calcium Magnesium Total Bilirubin AST ALT Alkaline Phosphatase Ammonia 35 H Total Protein Albumin Lipase COVID-19 Source Nasal/Nares SARS-CoV-2 (PCR) Negative Last Vital Signs Temp 37.2 C 10/20/22 15:11 Pulse 89 10/20/22 19:51 Resp 19 10/20/22 19:51 BP 100/61 10/20/22 19:51 Pulse Ox 98 10/20/22 15:11 Time Spent Time spent with Patient: 55-74 minutes Time was spent: preparing to see the patient(eg.review tests), obtaining and/or reviewing separately otained hiistory, ordering medications,tests, procedures, referring, communicating with other health child care provider, indepentently interpreting results and counseling the patient
[2022-10-20] MEDS: ALBUMIN HUMAN 25 GM/100 ML BTL IVPB (21:44)
[2022-10-20] MEDS: Melatonin 3 MG TAB 6 MG PO (21:46)
[2022-10-20] MEDS: Normal Saline Flush 10 ML SYR IVP (21:47)
[2022-10-21] VITALS (68 sets, daily range): BP systolic 85–109; BP diastolic 42–80; PULSE 76–154; RESP 11–28; TEMP 35.9–37.2; O2SAT 91–100
[2022-10-21 06:09] LABS: Abs Immature Grans 0.12 10^3/uL (0.0-0.06); HCT 31.8 % (36.0-46.0); HGB 10.7 g/dL (11.2-15.7); MCH 31.9 pg (27.0-33.0); MCHC 33.6 % (32.0-36.0); MCV 95 fL (80-95); MPV 10.4 fL (8.0-11.0); Platelet Count 145 10^3/uL (130-400); RBC 3.35 10^6/uL (3.93-5.22); RDW 16.1 % (11.7-14.6); RDW-SD 56.3 fL; WBC 17.46 10^3/uL (4.4-10.8)
[2022-10-21 06:15] LABS: RBC Morphology Normal
[2022-10-21] MEDS: Norepinephrine in D5W 8 MG/250 ML BAG 16.7 MG IV (06:15)
[2022-10-21 06:19] LABS: Absolute Neutrophil Count 14.32 10^3/uL (1.2-6.7); Bands % 7
[2022-10-21 06:20] LABS: Absolute Monocyte Count 1.75 10^3/uL (0.1-0.8); Atypical Lymphocytes % 2
[2022-10-21 06:22] LABS: Diff Comment Manual Differential
[2022-10-21 06:32] LABS: INR 1.6 (0.9-1.1); Prothrombin Time 16.1 sec (9.3-11.0)
[2022-10-21 06:34] LABS: ALT 25 U/L (14-59); AST 30 U/L (15-37); Albumin 2.7 g/dL (3.4-5.0); Alkaline Phosphatase 98 U/L (46-116); Anion Gap 8.9 mmol/L (3-11); BUN 44 mg/dL (7-18); CO2 21.1 mmol/L (21.0-32.0); CREATININE 2.1 mg/dL (0.55-1.02); Calcium 8.7 mg/dL (8.5-10.1); Chloride 100 mmol/L (98-107); Estimated GFR 27.31 (mL/min/1.73m2); Glucose 108 mg/dL (74-106); Magnesium 1.5 mg/dL (1.8-2.4); Potassium 4.3 mmol/L (3.5-5.1); Sodium 130 mmol/L (136-145); Total Protein 5.3 g/dL (6.4-8.2)
[2022-10-21 06:58] LABS: Lactate 2.8 mmol/L (0.6-1.4)
--- NOTE | 2022-10-21 07:03 | W.PULMCC ---
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 Clinically she is not toxic and has a non surgical abdomen. I think her hypotension is more related to systemic vasodilation due to worsening decompensated cirrhosis in the setting of more fluid removal for paracentesis. Her MELD score is significantly worsening. 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 Her procalcitonin is not clinically helpful due to both her liver and kidney failure. She is refusing central access as well as wants to leave the hospital this evening with an antibiotic. I think it is reasonable to continue Levaquin. I also think it is reasonable to allow for lower blood pressures due to her altered physiology. A SBP >85mmHg is appropriate as long as she is asymptomatic. I strongly recommend palliative care. Erin is being stoic and almost refusing to acknowledge the fact of her worsening liver failure. I would also recommend updating her lead slot technician at [facility] on her condition. Recommendations Pulmonary: No acute concerns Cardiac: CHF - recommend very conservative fluid administration - I/O Distributive shock - recommend midodrine 10mg tid - allow lower SBP's if asymptomatic - 85mmHg or higher is likely appropriate for her Renal: Acute on chronic renal failure - HRS is possible if no improvement with conservative fluids - can consider midorine as above - agree with albumin Lactic acidosis - due to liver disease - no need to continue monitoring I&O: Intake & Output 10/18/22 10/19/22 10/20/22 10/21/22 23:59 23:59 23:59 23:59 Intake Total 1888.098 / 1988.098 265.608 / 265.608 Output Total 150 / 150 Balance 1888.098 / 1838.098 115.608 / 115.608 Weight 65.2 kg Daily Fluid Goal:: even GI Nutrition: Decompensated liver cirrhosis - supportive care - continue to trend liver function and DIC labs - recommend discussion with patients lead slot technician at [facility] - Dr. Abbasi - recommend palliative care Date of Last Bowel Movement: 10/20/22 Infectious Disease: Concern for abdominal infection - reasonable to continue Levaquin Hematologic: Leukocytosis - reactive vs infectious Neurologic: h/o hepatic encephalopathy - continue home meds Endocrine: No acute concerns Lines: PIV - recommended central line but patient adamantly refuses Prophylaxis: No DVT ppx - unknown status of esophageal varices Code Status: Resuscitation Status Full Code Subjective Critical and life-threatening events over the past 24 hours: Erin is a 57 yo with known decompensated liver failure from HCV and who requires paracentesis every 2 weeks, although more recently she has been accumulated more fluid than normal. She is followed by hepatology at [facility]. Her last visit with Dr. Emiliana Abbasi on 08/18/22. Her hepatology problem list as summarized from her note: # Chronic hepatitis C - completed treatment in 2019 with [facility] # Decompensated cirrhosis - january 2020 after COVID diagnosis - multiple admission for fluid overload, EARNEST, encephalopathy, E. coli bacteremia #CHF - LVEF 18% in 2013 with severely dilated RV, repeat echo after therapy LVEF 50% In this last visit, she documented a concern for TIPS causing further liver decompensation or cardiac decompensation, hence the scheduled q2week paracentesis. She also has not be on AC for her A. fib as she has not followed up on getting an EGD to assess for varices. Today she was admitted to ICU due to hypotension. There was concern about SBP or other infection. Today she says that she feels fine and wants to go home with an antibiotic pill. I talked to her about the hand IV running Levophed and how this is not safe, but she refuses a central line. Exam Narrative Exam Narrative: Gen: NAD, normal respiratory effort, well-nourished HENT: PERRL Chest: No respiratory distress, normal appearance of chest, clear to auscultation bilaterally, no crackles or wheezes, normal inspiratory effort Heart: regular rate and rhythym, no murmurs, rubs or gallops Abdomen: Distended, non tender Extremities: No clubbing, edema, cyanosis, rashes Neuro: AAOx3 , non focal Psych: cooperative, appropriate mental affect Most Recent VS/Results Last Vital Signs Temp 36.2 C L 10/21/22 07:00 Pulse 89 10/21/22 00:31 Resp 23 10/21/22 07:00 BP 97/60 L 10/21/22 00:31 Pulse Ox 94 10/21/22 07:00 Laboratory Results - last 24 hr 10/20/22 10/20/22 10/20/22 15:30 15:30 15:30 WBC 8.10 RBC 3.95 Hgb 12.8 Hct 37.3 MCV 94 MCH 32.4 MCHC 34.3 RDW 15.9 H Plt Count 172 MPV 10.3 Immature Gran % 0.5 Neutrophils % 82.4 Band Neutrophils % Lymphocytes % 6.0 Atypical Lymphs % Monocytes % 10.4 Eosinophils % 0.2 Basophils % 0.5 Nucleated RBC % 0.0 Absolute Neutrophils 6.67 Absolute Lymphocytes 0.49 L Absolute Monocytes 0.84 H Absolute Eosinophils 0.02 Absolute Basophils 0.04 RBC Morphology PT 13.1 H INR 1.3 H VBG Lactate Sodium 133 L Potassium 3.8 Chloride 99 Carbon Dioxide 25.1 Anion Gap 8.9 BUN 37 H Creatinine 2.1 H Est GFR (CKD-EPI 2020) 27.31 Glucose 82 Calcium 8.7 Magnesium 1.4 L Total Bilirubin 3.5 H AST 38 H ALT 34 Alkaline Phosphatase 157 H Ammonia Total Protein 5.8 L Albumin 2.8 L Lipase 54 COVID-19 Source SARS-CoV-2 (PCR) Add-On Test Request 10/20/22 10/20/22 10/20/22 15:43 16:50 17:41 WBC RBC Hgb Hct MCV MCH MCHC RDW Plt Count MPV Immature Gran % Neutrophils % Band Neutrophils % Lymphocytes % Atypical Lymphs % Monocytes % Eosinophils % Basophils % Nucleated RBC % Absolute Neutrophils Absolute Lymphocytes Absolute Monocytes Absolute Eosinophils Absolute Basophils RBC Morphology PT INR VBG Lactate 2.7 H* Sodium Potassium Chloride Carbon Dioxide Anion Gap BUN Creatinine Est GFR (CKD-EPI 2020) Glucose Calcium Magnesium Total Bilirubin AST ALT Alkaline Phosphatase Ammonia 35 H Total Protein Albumin Lipase COVID-19 Source Nasal/Nares SARS-CoV-2 (PCR) Negative Add-On Test Request 02/12/0810/21/22 10/21/22 05:20 05:20 05:20 WBC 17.46 H RBC 3.35 L Hgb 10.7 L D Hct 31.8 L MCV 95 MCH 31.9 MCHC 33.6 RDW 16.1 H Plt Count 145 MPV 10.4 Immature Gran % 0.0 Neutrophils % 75.0 Band Neutrophils % 7 Lymphocytes % 6.0 Atypical Lymphs % 2 Monocytes % 10.0 Eosinophils % 0.0 Basophils % 0.0 Nucleated RBC % 0.0 Absolute Neutrophils 14.32 H Absolute Lymphocytes 1.40 Absolute Monocytes 1.75 H Absolute Eosinophils 0.00 Absolute Basophils 0.00 RBC Morphology Normal PT 16.1 H INR 1.6 H VBG Lactate Sodium 130 L Potassium 4.3 Chloride 100 Carbon Dioxide 21.1 Anion Gap 8.9 BUN 44 H Creatinine 2.1 H Est GFR (CKD-EPI 2020) 27.31 Glucose 108 H Calcium 8.7 Magnesium 1.5 L Total Bilirubin 4.0 H AST 30 ALT 25 Alkaline Phosphatase 98 Ammonia Total Protein 5.3 L Albumin 2.7 L Lipase COVID-19 Source SARS-CoV-2 (PCR) Add-On Test Request 10/21/22 10/21/22 06:40 Unknown WBC RBC Hgb Hct MCV MCH MCHC RDW Plt Count MPV Immature Gran % Neutrophils % Band Neutrophils % Lymphocytes % Atypical Lymphs % Monocytes % Eosinophils % Basophils % Nucleated RBC % Absolute Neutrophils Absolute Lymphocytes Absolute Monocytes Absolute Eosinophils Absolute Basophils RBC Morphology PT INR VBG Lactate 2.8 H* Sodium Potassium Chloride Carbon Dioxide Anion Gap BUN Creatinine Est GFR (CKD-EPI 2020) Glucose Calcium Magnesium Total Bilirubin AST ALT Alkaline Phosphatase Ammonia Total Protein Albumin Lipase COVID-19 Source SARS-CoV-2 (PCR) Add-On Test Request TNP Review of Systems All systems reviewed & are unremarkable except as noted in HPI and below Time spent with patient Time spent in Critical Care: 55 Time spent in Critical care included: Coordination of care, Chart review, Documenting critically ill care, Time at immediate bedside and Discussing critically ill care with other medical staff Multi-Disciplinary Checklist Lines/Tubes CENTRAL LINE: no ARTERIAL LINE: no HORNE: no ENDOTRACHEAL TUBE: no ICU Maintenance GLUCOSE 140-180mg/dL: yes NUTRITION AT GOAL: yes PRESSURE ULCER: no RESTRAINTS: no ANTIBIOTICS(if yes, consider Stewardship): Yes Social Issues FAMILY UPDATED: no, Reason/Intervention: patient able to communicate PT/OT: no, GOALS/DISPOSITION/SUPERVISOR MATTRESS AND BOXSPRINGS: yes CODE STATUS: Full Prophylaxis DVT PROPHYLAXIS: no Reason/Intervention: unknown status of esophageal varices GI PROPHYLAXIS: no
--- NOTE | 2022-10-21 07:23 | INITIAL_ITS ---
- If Service Date Differs Date of service: 10/21/22 Time of Service: 07:23 Care Management Initial Assess REASON FOR HOSPITALIZATION:: SBP, Sepsis, PAST MEDICAL HISTORY/PAST SURGICAL HISTORY:: Medical History . Anxiety. Attention deficit hyperactivity disorder, combined type. Cholestasis of . COVID-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. History of abdominal paracentesis. Irritable colon. Renal failure syndrome. SVT ( supraventricular tachycardia). Surgical History . section. x2. History of ileal conduit. History of thoracentesis (~12/28/21). 08/03/20,08/10/20. 08/21/20,08/31/20. Hx of tubal ligation. S/P abdominal paracentesis (~12/28/21) PREVIOUS FUNCTIONAL STATUS/SOCIAL/FAMILY SUPPORTS:: Erin resides in [place] with her , Isaac. 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 Erin drives and is independent at baseline. CURRENT FUNCTIONAL STATUS:: Per MD, Erin is currently refusing transfer and advocating for discharge. Has patient been provided with info about the portal/API?: No Did the patient sign up for the portal?: No CODE STATUS:: Full Code INSURANCE COVERAGE / FINANCIAL ISSUES:: Medicare. Medicaid CURRENT HOME/COMMUNITY SERVICES/EQUIPMENT:: None currently. PRIMARY CARE PHYSICIAN:: Dillon Muller POTENTIAL DISCHARGE NEEDS:: Palliative consult, follow up appointments. PATIENT/FAMILY EDUCATION NEEDS:: Review discharge instructions, discuss Ask Me Three. ANTICIPATED BARRIERS TO DISCHARGE:: None identified TRANSPORTATION:: Via private vehicle PLAN:: Erin will discharge home per her wishes. Per MD, she is refusing [facility] transfer and advocating for returning home with antibiotics. Anticipate she will return home via private vehicle with her .
--- NOTE | 2022-10-21 08:33 | W.SURGCON ---
Date of service: 10/21/22 Time of Service: 08:33 [facility] All Active Problems Discharge planning issues (Acute) Hypomagnesemia (Acute) Acute on chronic renal failure (Acute) SBP (spontaneous bacterial peritonitis) (Acute) Abdominal pain (Acute) Shock (Acute) History of abdominal paracentesis (Acute) Ascites due to chronic alcoholic hepatitis (Acute) Tense ascites (Acute) Hypertension (Chronic ~02/2022) 03/17/22 [facility] Cardiology Other ascites (Acute ~01/2022) 02/09/22 [facility] GI, weekly thoracentesis PAF (paroxysmal atrial fibrillation) (Acute) 02/09/22 [facility] Cardiology, ZIO Patch placed Chronic heart failure with preserved ejection fraction (Acute) 02/09/22 [facility] Cardiology Encephalopathy chronic (Acute) Congestive heart failure (Acute 04/22/13) Pleural effusion (Acute 04/22/13) History of gallstones (Active) Depressive disorder (Active) Anxiety (Active) Adult attention deficit hyperactivity disorder (Active) Constipation (Active) Irritable colon (Active) Smoking history (Active) History of surgery (Active) Uterine ablation approxinmately 2006 Two sections. Chronic hepatitis C (Chronic) Treated and cured, relapsed 02/2021 completed 24 wks Harvoni and ribavirin per note 05/05/22 CKD (chronic kidney disease) stage 4, GFR 15-29 ml/min (Acute) Atrial fibrillation with controlled ventricular rate (Acute) Advanced hepatic cirrhosis (Chronic) Hep C & ETOH Nephrotic syndrome (Acute) Hypokalemia (Acute) Cirrhosis of liver with ascites (Acute) 11/10/21 Telehealth [facility] Gastro Hypokalemia due to excessive renal loss of potassium (Acute) Hydrothorax (Acute) 03/31/21 [facility] Gastro 02/09/22 [facility] GI Hepatic encephalopathy (Acute) 03[facility]31[facility] Gastro Seasonal allergic rhinitis (Acute) 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) (Acute) Per [facility] Gastro note from 05/11/21 Medical History Anxiety Attention deficit hyperactivity disorder, combined type 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 History of abdominal paracentesis Irritable colon Renal failure syndrome SVT (supraventricular tachycardia) Surgical History section x2 History of ileal conduit History of thoracentesis (~12/28/21) 08/03/20,08/10/20 08/21/20,08/31/20 Hx of tubal ligation S/P abdominal paracentesis (~12/28/21) Family History (Updated 10/20/22 @ 21:43 by Aniket Burk) Mother Hypertensive disorder, systemic arterial Cancer Cervical Father Hypertensive disorder, systemic arterial Maternal Grandfather Diabetes Maternal Grandmother Cancer Ovarian Other Cirrhosis due to hemochromatosis Social History (Updated 10/20/22 @ 21:45 by Aniket Burk) Smoking/Tobacco Use Status: Former Tobacco Use Quit Date: 09/18/18 Smoking risk assessment performed?: Yes Alcohol Intake: former Drug use: Never Substance use type: does not use Adopted: No Caregiver/Support person: No Foster care: No Household members: family Housing: house Number of Children: 4 number of grandchildren: 2 Communication Needs: None Do you need help understanding health information?: Often current occupation: Used to work for [employer] Current gender identity: female What is your relationship status?: How often do you talk on the phone with friends or family?: three or more times per week Panel score (0-1 are the most socially isolated patients): 2 What type of physical activity do you participate in: none Seatbelt use: always Drive intox or ride w/intox 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 2 dogs. Disabled Results Last Vital Signs Temp 36.2 C L 10/21/22 07:00 Pulse 89 10/21/22 00:31 Resp 23 10/21/22 07:00 BP 97/60 L 10/21/22 00:31 Pulse Ox 94 10/21/22 07:00 Labs Result diagrams: 10/21/22 05:20 10/21/22 05:20 Labs: Laboratory Results - last 24 hr 10/20/22 10/20/22 10/20/22 15:30 15:30 15:30 WBC 8.10 RBC 3.95 Hgb 12.8 Hct 37.3 MCV 94 MCH 32.4 MCHC 34.3 RDW 15.9 H Plt Count 172 MPV 10.3 Immature Gran % 0.5 Neutrophils % 82.4 Band Neutrophils % Lymphocytes % 6.0 Atypical Lymphs % Monocytes % 10.4 Eosinophils % 0.2 Basophils % 0.5 Nucleated RBC % 0.0 Absolute Neutrophils 6.67 Absolute Lymphocytes 0.49 L Absolute Monocytes 0.84 H Absolute Eosinophils 0.02 Absolute Basophils 0.04 RBC Morphology PT 13.1 H INR 1.3 H VBG Lactate Sodium 133 L Potassium 3.8 Chloride 99 Carbon Dioxide 25.1 Anion Gap 8.9 BUN 37 H Creatinine 2.1 H Est GFR (CKD-EPI 2020) 27.31 Glucose 82 Calcium 8.7 Magnesium 1.4 L Total Bilirubin 3.5 H AST 38 H ALT 34 Alkaline Phosphatase 157 H Ammonia Total Protein 5.8 L Albumin 2.8 L Lipase 54 COVID-19 Source SARS-CoV-2 (PCR) Add-On Test Request 10/20/22 10/20/22 10/20/22 15:43 16:50 17:41 WBC RBC Hgb Hct MCV MCH MCHC RDW Plt Count MPV Immature Gran % Neutrophils % Band Neutrophils % Lymphocytes % Atypical Lymphs % Monocytes % Eosinophils % Basophils % Nucleated RBC % Absolute Neutrophils Absolute Lymphocytes Absolute Monocytes Absolute Eosinophils Absolute Basophils RBC Morphology PT INR VBG Lactate 2.7 H* Sodium Potassium Chloride Carbon Dioxide Anion Gap BUN Creatinine Est GFR (CKD-EPI 2020) Glucose Calcium Magnesium Total Bilirubin AST ALT Alkaline Phosphatase Ammonia 35 H Total Protein Albumin Lipase COVID-19 Source Nasal/Nares SARS-CoV-2 (PCR) Negative Add-On Test Request 10/21/22 10/21/22 10/21/22 05:20 05:20 05:20 WBC 17.46 H RBC 3.35 L Hgb 10.7 L D Hct 31.8 L MCV 95 MCH 31.9 MCHC 33.6 RDW 16.1 H Plt Count 145 MPV 10.4 Immature Gran % 0.0 Neutrophils % 75.0 Band Neutrophils % 7 Lymphocytes % 6.0 Atypical Lymphs % 2 Monocytes % 10.0 Eosinophils % 0.0 Basophils % 0.0 Nucleated RBC % 0.0 Absolute Neutrophils 14.32 H Absolute Lymphocytes 1.40 Absolute Monocytes 1.75 H Absolute Eosinophils 0.00 Absolute Basophils 0.00 RBC Morphology Normal PT 16.1 H INR 1.6 H VBG Lactate Sodium 130 L Potassium 4.3 Chloride 100 Carbon Dioxide 21.1 Anion Gap 8.9 BUN 44 H Creatinine 2.1 H Est GFR (CKD-EPI 2020) 27.31 Glucose 108 H Calcium 8.7 Magnesium 1.5 L Total Bilirubin 4.0 H AST 30 ALT 25 Alkaline Phosphatase 98 Ammonia Total Protein 5.3 L Albumin 2.7 L Lipase COVID-19 Source SARS-CoV-2 (PCR) Add-On Test Request 10/21/22 10/21/22 06:40 Unknown WBC RBC Hgb Hct MCV MCH MCHC RDW Plt Count MPV Immature Gran % Neutrophils % Band Neutrophils % Lymphocytes % Atypical Lymphs % Monocytes % Eosinophils % Basophils % Nucleated RBC % Absolute Neutrophils Absolute Lymphocytes Absolute Monocytes Absolute Eosinophils Absolute Basophils RBC Morphology PT INR VBG Lactate 2.8 H* Sodium Potassium Chloride Carbon Dioxide Anion Gap BUN Creatinine Est GFR (CKD-EPI 2020) Glucose Calcium Magnesium Total Bilirubin AST ALT Alkaline Phosphatase Ammonia Total Protein Albumin Lipase COVID-19 Source SARS-CoV-2 (PCR) Add-On Test Request TNP
--- NOTE | 2022-10-21 09:01 | PGE_ITS ---
Date of Service Date of service: 10/21/22 Time of Service: 09:01 Assessment and Plan Assessment and plan (1) SBP (spontaneous bacterial peritonitis): Status: Suspected Assessment and plan: - Significantly improved since yesterday. No pain or leakage of ascites today. No appreciable ascites on exam today. Peritoneal fluid was not sent for culture. Blood cultures are pending Today is day 2 of Levaquin. Labs and CTs reviewed. No abscess identified on CT. Patient is very high risk for SBP because of the number of paracentesis she has. Patient wants to leave today and have her go home and take care of her (she does have an extensive history of leaving AMA after she has been resuscitated and regains consciousness). I did try to talk her into staying one more night as she is still gravely ill, and needs IV antibiotics and medications. Her Pro-Michael today is 24. White count is 17. My feeling is that this is the most likely etiology for her septic shock. She is at high risk for developing abscess. She also does have a known history longstanding history of gallstones. However there does not were no signs of acute cholecystitis on CT. If this were to be acute cholecystitis she would need to be transferred to [facility] for surgery. She was not a candidate for a cholecystotomy tube because of her severe cirrhosis. She refuses to go to [facility] for EGD so we do not know if she has varices. Anesthesia has been referred to high risk for any surgical interventions at [facility]. So any surgeries or procedures would need to be done down at [facility]. Patient does have a longstanding history of noncompliance and leaving AMA. Further care and management per the hospitalist team and critical care team (2) Hypomagnesemia: Status: Acute (3) Acute on chronic renal failure: Status: Acute (4) Shock: Status: Acute Assessment and plan: Patient systolic BP is running in the 80s today. Her baseline pressure is usually in the high 90s to low 100s. Patient is refusing a central line. She was refusing norepinephrine. Dr. Lorenzo Manrique was scanning her and still considers her to be dehydrated. We will have to monitor very closely for third spacing if she does receive IV fluid. She did receive albumin yesterday. Albumin may even be a better choice of fluid for her if she does third space IVs solution very quickly (5) Ascites due to chronic alcoholic hepatitis: Status: Deleted (6) Hypertension: Status: Chronic (7) Other ascites: Status: Acute (8) PAF (paroxysmal atrial fibrillation): Status: Acute (9) Chronic heart failure with preserved ejection fraction: Status: Acute (10) Encephalopathy chronic: Status: Acute (11) Congestive heart failure: Status: Acute (12) Pleural effusion: Status: Acute (13) History of gallstones: Status: Active (14) Adult attention deficit hyperactivity disorder: Status: Active (15) Smoking history: Status: Active (16) Chronic hepatitis C: Status: Chronic Qualifiers: Hepatic coma status: without hepatic coma Qualified Code(s): B18.2 - Chronic viral hepatitis C (17) CKD (chronic kidney disease) stage 4, GFR 15-29 ml/min: Status: Acute (18) Atrial fibrillation with controlled ventricular rate: Status: Acute (19) Advanced hepatic cirrhosis: Status: Chronic (20) Nephrotic syndrome: Status: Acute (21) Cirrhosis of liver with ascites: Status: Acute Qualifiers: Hepatic cirrhosis type: unspecified hepatic cirrhosis Qualified Code(s): K74.60 - Unspecified cirrhosis of liver; R18.8 - Other ascites (22) Hydrothorax: Status: Acute (23) Hepatic encephalopathy: Status: Acute Subjective Subjective Interval history since last seen: Patient is awake and alert. She denies any abdominal pain. Her cognition is back to her baseline. Her systolic has been running around 85. Patient had a tab on Monday for 5 L. After that she went home and complete another 2 L per her estimate. She did receive albumin on Monday. She did receive albumin last night. Her abdomen is soft and nontender and she is hungry. Dr. De Souza is at the bedside doing a POCUS exam and her IVC remains collapsed. Her systolic BP has been running around 85. She is refusing the norepinephrine. echo 03/09 Conclusion Normal left ventricular wall thickness.? The left ventricle is mildly dilated.? Ejection fraction is 50%.? There is very mild global hypokinesis Normal right ventricular size and systolic function The left atrium is moderately dilated.? The right atrium is mildly dilated Structurally normal aortic valve without stenosis or regurgitation Thickened mitral leaflets with mild to moderate regurgitation Normal tricuspid valve with mild to moderate regurgitation.? Estimated right ventricular systolic pressure is 29 mmHg MPRESSION: ct 10/21 MPRESSION: Decrease in assess ascites compared to the prior exam.? No evidence of free air or abscess collection.? No findings to suggest obstruction.? Stable appearance of right pleural effusion and adjacent basilar atelectasis. Exam GI Palpation: soft, nontender and ascites (minimal) Other: She has some scarring from prior punctures. There is no cellulitis or abscess of the abdominal wall. There is no active ascitic drainage at this time Objective Last Vital Signs Temp 36.2 C L 10/21/22 07:00 Pulse 89 10/21/22 00:31 Resp 23 10/21/22 07:00 BP 97/60 L 10/21/22 00:31 Pulse Ox 94 10/21/22 07:00 Laboratory Results - last 24 hr 10/20/22 10/20/22 10/20/22 15:30 15:30 15:30 WBC 8.10 RBC 3.95 Hgb 12.8 Hct 37.3 MCV 94 MCH 32.4 MCHC 34.3 RDW 15.9 H Plt Count 172 MPV 10.3 Immature Gran % 0.5 Neutrophils % 82.4 Band Neutrophils % Lymphocytes % 6.0 Atypical Lymphs % Monocytes % 10.4 Eosinophils % 0.2 Basophils % 0.5 Nucleated RBC % 0.0 Absolute Neutrophils 6.67 Absolute Lymphocytes 0.49 L Absolute Monocytes 0.84 H Absolute Eosinophils 0.02 Absolute Basophils 0.04 RBC Morphology PT 13.1 H INR 1.3 H VBG Lactate Sodium 133 L Potassium 3.8 Chloride 99 Carbon Dioxide 25.1 Anion Gap 8.9 BUN 37 H Creatinine 2.1 H Est GFR (CKD-EPI 2020) 27.31 Glucose 82 Calcium 8.7 Magnesium 1.4 L Total Bilirubin 3.5 H AST 38 H ALT 34 Alkaline Phosphatase 157 H Ammonia Total Protein 5.8 L Albumin 2.8 L Lipase 54 COVID-19 Source SARS-CoV-2 (PCR) Add-On Test Request 10/20/22 10/20/22 10/20/22 15:43 16:50 17:41 WBC RBC Hgb Hct MCV MCH MCHC RDW Plt Count MPV Immature Gran % Neutrophils % Band Neutrophils % Lymphocytes % Atypical Lymphs % Monocytes % Eosinophils % Basophils % Nucleated RBC % Absolute Neutrophils Absolute Lymphocytes Absolute Monocytes Absolute Eosinophils Absolute Basophils RBC Morphology PT INR VBG Lactate 2.7 H* Sodium Potassium Chloride Carbon Dioxide Anion Gap BUN Creatinine Est GFR (CKD-EPI 2020) Glucose Calcium Magnesium Total Bilirubin AST ALT Alkaline Phosphatase Ammonia 35 H Total Protein Albumin Lipase COVID-19 Source Nasal/Nares SARS-CoV-2 (PCR) Negative Add-On Test Request 10/21/22 10/21/22 10/21/22 05:20 05:20 05:20 WBC 17.46 H RBC 3.35 L Hgb 10.7 L D Hct 31.8 L MCV 95 MCH 31.9 MCHC 33.6 RDW 16.1 H Plt Count 145 MPV 10.4 Immature Gran % 0.0 Neutrophils % 75.0 Band Neutrophils % 7 Lymphocytes % 6.0 Atypical Lymphs % 2 Monocytes % 10.0 Eosinophils % 0.0 Basophils % 0.0 Nucleated RBC % 0.0 Absolute Neutrophils 14.32 H Absolute Lymphocytes 1.40 Absolute Monocytes 1.75 H Absolute Eosinophils 0.00 Absolute Basophils 0.00 RBC Morphology Normal PT 16.1 H INR 1.6 H VBG Lactate Sodium 130 L Potassium 4.3 Chloride 100 Carbon Dioxide 21.1 Anion Gap 8.9 BUN 44 H Creatinine 2.1 H Est GFR (CKD-EPI 2020) 27.31 Glucose 108 H Calcium 8.7 Magnesium 1.5 L Total Bilirubin 4.0 H AST 30 ALT 25 Alkaline Phosphatase 98 Ammonia Total Protein 5.3 L Albumin 2.7 L Lipase COVID-19 Source SARS-CoV-2 (PCR) Add-On Test Request 10/21/22 10/21/22 06:40 Unknown WBC RBC Hgb Hct MCV MCH MCHC RDW Plt Count MPV Immature Gran % Neutrophils % Band Neutrophils % Lymphocytes % Atypical Lymphs % Monocytes % Eosinophils % Basophils % Nucleated RBC % Absolute Neutrophils Absolute Lymphocytes Absolute Monocytes Absolute Eosinophils Absolute Basophils RBC Morphology PT INR VBG Lactate 2.8 H* Sodium Potassium Chloride Carbon Dioxide Anion Gap BUN Creatinine Est GFR (CKD-EPI 2020) Glucose Calcium Magnesium Total Bilirubin AST ALT Alkaline Phosphatase Ammonia Total Protein Albumin Lipase COVID-19 Source SARS-CoV-2 (PCR) Add-On Test Request TNP Time Spent with Patient Time Spent with Patient: 35-49 minutes Time was spent: preparing to see the patient(eg.review tests), obtaining and/or reviewing separately otained hiistory, ordering medications,tests, procedures, referring, communicating with other health customer care manager, indepentently interpreting results, counseling the patient and care coordination
--- NOTE | 2022-10-21 09:17 | W.PM.PROGNOT ---
Date of Service Date of service: 10/21/22 Time of Service: 09:17 Assessment and Plan Assessment and plan (1) SBP (spontaneous bacterial peritonitis): Status: Suspected Assessment and plan: SBP was suspected however on her imaging last night she did not appear to have enough fluid to safely undergo a diagnostic paracentesis. Patient had recent paracentesis with over 7 L of fluid drained and then at home was having continued leakage from the paracentesis site. She presented last night because of the leakage and complaints of abdominal pain. She presented last night with signs and symptoms of septic shock with low urine output worsening renal failure and leukocytosis and elevated procalcitonin level. She was resuscitated last night with almost 2 L of fluid because of her history of HFpEF further fluids were discontinued and blood pressure was maintained overnight on norepinephrine which is since been discontinued per patient's request. Patient was treated with Levaquin and metronidazole last night. 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 (4) Acute on chronic renal failure: Status: Acute Assessment and plan: Probably prerenal azotemia due to dehydration/poor oral intake however cannot exclude possibility of hepatorenal syndrome given the severity of her liver disease and decompensation. (5) Atrial fibrillation with controlled ventricular rate: Status: Acute Assessment and plan: Chronic atrial fibrillation usually controlled with metoprolol. She is not candidate for anticoagulation. We will continue to monitor and use beta-blockers as her blood pressure will allow. (6) CKD (chronic kidney disease) stage 4, GFR 15-29 ml/min: Status: Acute Assessment and plan: It appears her baseline creatinine is around 1.7-1.8 and a baseline BUN is usually 30-35. Currently she is at a BUN of 44 creatinine 2.1. We are withholding her diuretics and going to give her another fluid bolus as her IVC is less than 2 cm and has a greater then 50% collapsibility and her VTI went from 18-24 with passive leg raise. (7) Advanced hepatic cirrhosis: Status: Chronic Assessment and plan: Continue her lactulose with a goal of having a couple of soft bowel movements daily. Continue her rifaximin we will give a trial of IV albumin and hopefully support her blood pressures with the albumin and midodrine with a goal of enhancing urine output. (8) Chronic heart failure with preserved ejection fraction: Status: Acute Assessment and plan: Baseline echocardiogram from 02/28/2022 actually shows mild global LV dysfunction with global hypokinesis and LVEF of 50%. Left ventricle is mildly dilated right ventricular size and function is normal. She has moderately dilated left atrium mildly dilated right atrium structurally normal aortic valve and mitral valve is thickened with mild to moderate regurgitation. This is per echocardiogram dated 02/28/2022. Per my POCUS exam she appears to have mild hypokinesis with no regional wall motion abnormalities with an underfilled RV along with biatrial enlargement with some mild mitral regurgitation. Her IVC is 1.7 cm and collapses 53% with inspiration. Her measured VTI went from 17-24 after passive leg raise suggesting that she is not only fluid tolerant but fluid responsive. The trickle be try to keep the fluids intravascular and not worsening her ascites. Subjective Subjective Interval history since last seen: Patient states she feels better and insists that she is going home tonight on oral antibiotics. Blood pressures improved with fluids and norepinephrine overnight. Patient is refusing a central line and therefore the norepinephrine has been discontinued as it was infusing in a small peripheral vein. While we will continue to monitor her blood pressures we will also look at her blood pressures in light of her clinical status in terms of her mentation and her urine output. Patient states she tends to run low blood pressure at home with systolic pressures in the 90s. She is refusing to discuss CODE STATUS as she believes that her liver is gettting better and wants no talk of dying. Patient received Levaquin which is being dosed every 48 hours based on her renal insufficiency. Levaquin was chosen based on her PCN allergy. She did receive dose of Flagyl last night. Exam Narrative Exam Narrative: Middle-aged female who appears to be older than her stated age. Skin is bronze appearing. Sclera is nonicteric Neck is supple without overt JVD. Lungs clear to auscultation Heart irregularly irregular slightly tachycardic Abdomen distended soft without tenderness or rebound tenderness or guarding she has multiple scars over the abdomen from previous paracentesis. None of these appear to be infected. No erythema or drainage from any sites. Positive fluid wave. Extremities without peripheral edema or cyanosis feet are warm with good capillary refill Objective Last Vital Signs Temp 36.2 C L 10/21/22 07:00 Pulse 89 10/21/22 00:31 Resp 23 10/21/22 07:00 BP 97/60 L 10/21/22 00:31 Pulse Ox 94 10/21/22 07:00 Laboratory Results - last 24 hr 10/20/22 10/20/22 10/20/22 15:30 15:30 15:30 WBC 8.10 RBC 3.95 Hgb 12.8 Hct 37.3 MCV 94 MCH 32.4 MCHC 34.3 RDW 15.9 H Plt Count 172 MPV 10.3 Immature Gran % 0.5 Neutrophils % 82.4 Band Neutrophils % Lymphocytes % 6.0 Atypical Lymphs % Monocytes % 10.4 Eosinophils % 0.2 Basophils % 0.5 Nucleated RBC % 0.0 Absolute Neutrophils 6.67 Absolute Lymphocytes 0.49 L Absolute Monocytes 0.84 H Absolute Eosinophils 0.02 Absolute Basophils 0.04 RBC Morphology PT 13.1 H INR 1.3 H Fibrinogen VBG Lactate Sodium 133 L Potassium 3.8 Chloride 99 Carbon Dioxide 25.1 Anion Gap 8.9 BUN 37 H Creatinine 2.1 H Est GFR (CKD-EPI 2020) 27.31 Glucose 82 Calcium 8.7 Magnesium 1.4 L Total Bilirubin 3.5 H AST 38 H ALT 34 Alkaline Phosphatase 157 H Ammonia Total Protein 5.8 L Albumin 2.8 L Lipase 54 COVID-19 Source SARS-CoV-2 (PCR) Add-On Test Request 10/20/22 10/20/22 10/20/22 15:43 16:50 17:41 WBC RBC Hgb Hct MCV MCH MCHC RDW Plt Count MPV Immature Gran % Neutrophils % Band Neutrophils % Lymphocytes % Atypical Lymphs % Monocytes % Eosinophils % Basophils % Nucleated RBC % Absolute Neutrophils Absolute Lymphocytes Absolute Monocytes Absolute Eosinophils Absolute Basophils RBC Morphology PT INR Fibrinogen VBG Lactate 2.7 H* Sodium Potassium Chloride Carbon Dioxide Anion Gap BUN Creatinine Est GFR (CKD-EPI 2020) Glucose Calcium Magnesium Total Bilirubin AST ALT Alkaline Phosphatase Ammonia 35 H Total Protein Albumin Lipase COVID-19 Source Nasal/Nares SARS-CoV-2 (PCR) Negative Add-On Test Request 10/21/22 10/21/22 10/21/22 05:20 05:20 05:20 WBC 17.46 H RBC 3.35 L Hgb 10.7 L D Hct 31.8 L MCV 95 MCH 31.9 MCHC 33.6 RDW 16.1 H Plt Count 145 MPV 10.4 Immature Gran % 0.0 Neutrophils % 75.0 Band Neutrophils % 7 Lymphocytes % 6.0 Atypical Lymphs % 2 Monocytes % 10.0 Eosinophils % 0.0 Basophils % 0.0 Nucleated RBC % 0.0 Absolute Neutrophils 14.32 H Absolute Lymphocytes 1.40 Absolute Monocytes 1.75 H Absolute Eosinophils 0.00 Absolute Basophils 0.00 RBC Morphology Normal PT 16.1 H INR 1.6 H Fibrinogen VBG Lactate Sodium 130 L Potassium 4.3 Chloride 100 Carbon Dioxide 21.1 Anion Gap 8.9 BUN 44 H Creatinine 2.1 H Est GFR (CKD-EPI 2020) 27.31 Glucose 108 H Calcium 8.7 Magnesium 1.5 L Total Bilirubin 4.0 H AST 30 ALT 25 Alkaline Phosphatase 98 Ammonia Total Protein 5.3 L Albumin 2.7 L Lipase COVID-19 Source SARS-CoV-2 (PCR) Add-On Test Request 10/21/22 10/21/22 10/21/22 06:40 Unknown Unknown WBC RBC Hgb Hct MCV MCH MCHC RDW Plt Count MPV Immature Gran % Neutrophils % Band Neutrophils % Lymphocytes % Atypical Lymphs % Monocytes % Eosinophils % Basophils % Nucleated RBC % Absolute Neutrophils Absolute Lymphocytes Absolute Monocytes Absolute Eosinophils Absolute Basophils RBC Morphology PT INR Fibrinogen Cancelled VBG Lactate 2.8 H* Sodium Potassium Chloride Carbon Dioxide Anion Gap BUN Creatinine Est GFR (CKD-EPI 2020) Glucose Calcium Magnesium Total Bilirubin AST ALT Alkaline Phosphatase Ammonia Total Protein Albumin Lipase COVID-19 Source SARS-CoV-2 (PCR) Add-On Test Request TNP Time Spent with Patient Time Spent with Patient: >50 minutes Time was spent: preparing to see the patient(eg.review tests), obtaining and/or reviewing separately otained hiistory, ordering medications,tests, procedures, referring, communicating with other health manager progressive care, indepentently interpreting results, counseling the patient and care coordination
[2022-10-21] MEDS: Rifaximin 550 MG TAB PO (09:21)
[2022-10-21 09:26] LABS: NT-proBNP 3987 pg/mL (<300)
--- NOTE | 2022-10-21 10:02 | W.POCUS ---
[facility] Exam Limited Cardiac Exam DATE OF EXAM: 10/21/22 TIME OF EXAM: 08:06 PROVIDER THAT PERFORMED THE STUDY: Hamilton Alfonso IS THIS A REPEAT EXAM DURING THIS ENCOUNTER: no REASON FOR EXAM: Hypotension and Septic Shock VISUALIZED STRUCTURES: four chambers, left atrium, left ventricle, LVOT, right atrium, right ventricle, aortic valve, Interventricular septum and IVC VIEW OBTAINED: Apical 4-Chamber, Parasternal long-axis, Parasternal short-axis and Subxiphoid PERTINENT FINDINGS/IMPRESSION: IVC inspiratory collapsability (IVC measures 1.7 cm w/ 53% collapsability), LV dysfunction :mild (global hypokinesis, no RWMA; pre PLR VTI 18.1 and post PLR VTI 23.1) and Other (underfilled RV, normal RV systolic function and size) DIFFERENTIAL DIAGNOSES: Hypovolemic and septic shock w/ global LV hypokinesis and underfilled RV but preserved RV function and IVC that is under 2.1 cm and has greater then 50% collapsability suggesting fluid responsive state Exam complete
[2022-10-21 10:11] LABS: Ammonia 22 umol/L (11-32)
[2022-10-21 10:18] LABS: C-Reactive Protein 6.21 mg/dL (0.0-0.3); Troponin I < 50 ng/L (<or=60)
[2022-10-21] MEDS: Lactulose 20 GM/30 ML CUP PO (10:34)
[2022-10-21] MEDS: MEROPENEM 1 GM in Normal Saline 100 ML IVPB (10:34)
[2022-10-21] MEDS: ALBUMIN HUMAN 25 GM/100 ML BTL IV (12:36)
[2022-10-21] MEDS: Normal Saline Flush 10 ML SYR IVP (14:59)
--- NOTE | 2022-10-21 15:01 | PCNE_ITS ---
Date of service: 10/21/22 Time of Service: 15:02 History of Present Illness Narrative: Erin was seen in her room in the ICU. She initially declined the visit with Palliative Care and stated she has seen Palliative at [facility]. She eventually engaged in the visit. She reports she has AD. She states, I want to be kept alive on machines... I believe in science. Her , Isaac Carmona, is her HCA. She states she trusts him to make decisions for her. Her takes care of her at home. She states she wants to go home so he can take care of her. She also has an 18 year old daughter that lives with her and helps out. She has 4 children. She does not believe she has an infection or that she needs to be in the hospital. Erin wanted the hospitalist to discuss her case with her GI doctor at [facility], Dr. Abbasi. Dr. Alfonso, Hospitalist, attempted to contact her but was unable to reach her. He spoke to her colleague who thought she should be transferred to [facility], however, Erin refuses transfer. She feels better than when she came in. She thinks she just, had a cold. She is not interested in f/u with Palliative at this time. She states she will contact the office if she desires f/u. She is agreeable to being seen by Palliative if she is hospitalized again. 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 (2) Hypotension: Status: Acute (3) Lactic acidosis: Status: Acute (4) SBP (spontaneous bacterial peritonitis): Status: Suspected (5) Acute on chronic renal failure: Status: Acute (6) Abdominal pain: Status: Acute (7) Shock: Status: Acute (8) History of abdominal paracentesis: Status: Acute (9) PAF (paroxysmal atrial fibrillation): Status: Acute (10) Advanced hepatic cirrhosis: Status: Chronic (11) Cirrhosis of liver with ascites: Status: Acute Qualifiers: Hepatic cirrhosis type: unspecified hepatic cirrhosis Qualified Code(s): K74.60 - Unspecified cirrhosis of liver; R18.8 - Other ascites (12) Palliative care encounter: Status: Acute Assessment and plan: Erin is a 57 year old female who was seen in the ICU. She is admitted for po ssible SBP. She has cirrhosis/hep C (treated)/ascites and receives regular paracentesis. She initially declined a palliative visit but went on to engage in the visit. She has AD- she wants aggressive care. She is clear today that she wants aggressive care including CPR and intubation. Her , Isaac Carmona is her HCA. She declines palliative f/u. She would likely benefit from palliative care services. She agrees to be seen again if she is inpatient at [facility]. She is encouraged to call the palliative office if she changes her mind about outpatient f/u. Review of Systems Narrative: She reports she is feeling better. She thinks her abdomen is beginning to fill up with fluid. She continues to have some abdominal pain. 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 Cardiology Other ascites (Acute ~01/2022) 02/09/22 [facility] GI, weekly thoracentesis PAF (paroxysmal atrial fibrillation) (Acute) 02/09/22 [facility] Cardiology, ZIO Patch placed Chronic heart failure with preserved ejection fraction (Acute) 02/09/22 [facility] Cardiology Encephalopathy chronic (Chronic) Congestive heart failure (Acute 04/22/13) Pleural effusion (Acute 04/22/13) History of gallstones (Active) Depressive disorder (Active) Anxiety (Active) Adult attention deficit hyperactivity disorder (Active) Constipation (Active) Irritable colon (Active) Smoking history (Active) History of surgery (Active) Uterine ablation approxinmately 2006 Two sections. Chronic hepatitis C (Chronic) Treated and cured, relapsed 02/2021 completed 24 wks Harvoni and ribavirin per note 05/05/22 CKD (chronic kidney disease) stage 4, GFR 15-29 ml/min (Acute) Atrial fibrillation with controlled ventricular rate (Acute) Advanced hepatic cirrhosis (Chronic) Hep C & ETOH Nephrotic syndrome (Acute) Hypokalemia (Acute) Cirrhosis of liver with ascites (Acute) 11/10/21 Telehealth [facility] Gastro Hypokalemia due to excessive renal loss of potassium (Acute) Hydrothorax (Acute) 03/31/21 [facility] Gastro 02/09/22 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 History of abdominal paracentesis Irritable colon Renal failure syndrome SVT (supraventricular tachycardia) Surgical History section x2 History of ileal conduit History of thoracentesis (~12/28/21) 08/03/20,08/10/20 08/21/20,08/31/20 Hx of tubal ligation S/P abdominal paracentesis (~12/28/21) Family History Mother Hypertensive disorder, systemic arterial Cancer Cervical Father Hypertensive disorder, systemic arterial Maternal Grandfather Diabetes Maternal Grandmother Cancer Ovarian Other Cirrhosis due to hemochromatosis Social History Smoking/Tobacco Use Status: Former Tobacco Use Quit Date: 09/18/18 Smoking risk assessment performed?: Yes Alcohol Intake: former Drug use: Never Substance use type: does not use Adopted: No Caregiver/Support person: No Foster care: No Household members: family Housing: house Number of Children: 4 number of grandchildren: 2 Communication Needs: None Do you need help understanding health information?: Often current occupation: Used to work for [employer] Current gender identity: female What is your relationship status?: How often do you talk on the phone with friends or family?: three or more times per week Panel score (0-1 are the most socially isolated patients): 2 What type of physical activity do you participate in: none Seatbelt use: always Drive intox or ride w/intox 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 2 dogs. Disabled Exam Narrative Exam Narrative: General: very pleasant, middle aged female, laying in the hospital bed in the ICU. She is alert and oriented, talkative. HEENT: normocephalic, atraumatic, EOMI, poor dentition, mmm. Neck: supple. Cardiovascular: tachycardic. Respiratory: respirations appear even and unlabored. GI: abd round, softly distended, nontender on gentle palpation. Results Last Vital Signs Temp 36.5 C 10/21/22 12:30 Pulse 96 H 10/21/22 13:00 Resp 19 10/21/22 13:50 BP 89/49 L 10/21/22 13:00 Pulse Ox 96 10/21/22 13:50 Labs Result diagrams: 10/21/22 05:20 10/21/22 05:20 Labs: Laboratory Results - last 24 hr 10/20/22 10/20/22 10/20/22 15:30 15:30 15:30 WBC 8.10 RBC 3.95 Hgb 12.8 Hct 37.3 MCV 94 MCH 32.4 MCHC 34.3 RDW 15.9 H Plt Count 172 MPV 10.3 Immature Gran % 0.5 Neutrophils % 82.4 Band Neutrophils % Lymphocytes % 6.0 Atypical Lymphs % Monocytes % 10.4 Eosinophils % 0.2 Basophils % 0.5 Nucleated RBC % 0.0 Absolute Neutrophils 6.67 Absolute Lymphocytes 0.49 L Absolute Monocytes 0.84 H Absolute Eosinophils 0.02 Absolute Basophils 0.04 RBC Morphology PT 13.1 H INR 1.3 H Fibrinogen VBG Lactate Sodium 133 L Potassium 3.8 Chloride 99 Carbon Dioxide 25.1 Anion Gap 8.9 BUN 37 H Creatinine 2.1 H Est GFR (CKD-EPI 2020) 27.31 Glucose 82 Calcium 8.7 Magnesium 1.4 L Total Bilirubin 3.5 H AST 38 H ALT 34 Alkaline Phosphatase 157 H Ammonia Troponin I C-Reactive Protein NT-Pro-B Natriuret Pep Total Protein 5.8 L Albumin 2.8 L Lipase 54 Procalcitonin COVID-19 Source SARS-CoV-2 (PCR) Add-On Test Request 10/20/22 10/20/22 10/20/22 15:43 16:50 17:41 WBC RBC Hgb Hct MCV MCH MCHC RDW Plt Count MPV Immature Gran % Neutrophils % Band Neutrophils % Lymphocytes % Atypical Lymphs % Monocytes % Eosinophils % Basophils % Nucleated RBC % Absolute Neutrophils Absolute Lymphocytes Absolute Monocytes Absolute Eosinophils Absolute Basophils RBC Morphology PT INR Fibrinogen VBG Lactate 2.7 H* Sodium Potassium Chloride Carbon Dioxide Anion Gap BUN Creatinine Est GFR (CKD-EPI 2020) Glucose Calcium Magnesium Total Bilirubin AST ALT Alkaline Phosphatase Ammonia 35 H Troponin I C-Reactive Protein NT-Pro-B Natriuret Pep Total Protein Albumin Lipase Procalcitonin COVID-19 Source Nasal/Nares SARS-CoV-2 (PCR) Negative Add-On Test Request 10/21/22 10/21/22 10/21/22 05:20 05:20 05:20 WBC 17.46 H RBC 3.35 L Hgb 10.7 L D Hct 31.8 L MCV 95 MCH 31.9 MCHC 33.6 RDW 16.1 H Plt Count 145 MPV 10.4 Immature Gran % 0.0 Neutrophils % 75.0 Band Neutrophils % 7 Lymphocytes % 6.0 Atypical Lymphs % 2 Monocytes % 10.0 Eosinophils % 0.0 Basophils % 0.0 Nucleated RBC % 0.0 Absolute Neutrophils 14.32 H Absolute Lymphocytes 1.40 Absolute Monocytes 1.75 H Absolute Eosinophils 0.00 Absolute Basophils 0.00 RBC Morphology Normal PT 16.1 H INR 1.6 H Fibrinogen VBG Lactate Sodium 130 L Potassium 4.3 Chloride 100 Carbon Dioxide 21.1 Anion Gap 8.9 BUN 44 H Creatinine 2.1 H Est GFR (CKD-EPI 2020) 27.31 Glucose 108 H Calcium 8.7 Magnesium 1.5 L Total Bilirubin 4.0 H AST 30 ALT 25 Alkaline Phosphatase 98 Ammonia Troponin I C-Reactive Protein NT-Pro-B Natriuret Pep Total Protein 5.3 L Albumin 2.7 L Lipase Procalcitonin COVID-19 Source SARS-CoV-2 (PCR) Add-On Test Request 10/21/22 10/21/22 10/21/22 06:40 06:40 06:40 WBC RBC Hgb Hct MCV MCH MCHC RDW Plt Count MPV Immature Gran % Neutrophils % Band Neutrophils % Lymphocytes % Atypical Lymphs % Monocytes % Eosinophils % Basophils % Nucleated RBC % Absolute Neutrophils Absolute Lymphocytes Absolute Monocytes Absolute Eosinophils Absolute Basophils RBC Morphology PT INR Fibrinogen VBG Lactate 2.8 H* Sodium Potassium Chloride Carbon Dioxide Anion Gap BUN Creatinine Est GFR (CKD-EPI 2020) Glucose Calcium Magnesium Total Bilirubin AST ALT Alkaline Phosphatase Ammonia Troponin I C-Reactive Protein NT-Pro-B Natriuret Pep 3987 H Total Protein Albumin Lipase Procalcitonin 24.0 COVID-19 Source SARS-CoV-2 (PCR) Add-On Test Request 10/21/22 10/21/22 10/21/22 09:40 09:40 Unknown WBC RBC Hgb Hct MCV MCH MCHC RDW Plt Count MPV Immature Gran % Neutrophils % Band Neutrophils % Lymphocytes % Atypical Lymphs % Monocytes % Eosinophils % Basophils % Nucleated RBC % Absolute Neutrophils Absolute Lymphocytes Absolute Monocytes Absolute Eosinophils Absolute Basophils RBC Morphology PT INR Fibrinogen VBG Lactate Sodium Potassium Chloride Carbon Dioxide Anion Gap BUN Creatinine Est GFR (CKD-EPI 2020) Glucose Calcium Magnesium Total Bilirubin AST ALT Alkaline Phosphatase Ammonia 22 Troponin I < 50 C-Reactive Protein 6.21 H NT-Pro-B Natriuret Pep Total Protein Albumin Lipase Procalcitonin COVID-19 Source SARS-CoV-2 (PCR) Add-On Test Request TNP 10/21/22 Unknown WBC RBC Hgb Hct MCV MCH MCHC RDW Plt Count MPV Immature Gran % Neutrophils % Band Neutrophils % Lymphocytes % Atypical Lymphs % Monocytes % Eosinophils % Basophils % Nucleated RBC % Absolute Neutrophils Absolute Lymphocytes Absolute Monocytes Absolute Eosinophils Absolute Basophils RBC Morphology PT INR Fibrinogen Cancelled VBG Lactate Sodium Potassium Chloride Carbon Dioxide Anion Gap BUN Creatinine Est GFR (CKD-EPI 2020) Glucose Calcium Magnesium Total Bilirubin AST ALT Alkaline Phosphatase Ammonia Troponin I C-Reactive Protein NT-Pro-B Natriuret Pep Total Protein Albumin Lipase Procalcitonin COVID-19 Source SARS-CoV-2 (PCR) Add-On Test Request
--- NOTE | 2022-10-21 15:42 | CHAPLAIN ---
Erin was up in the chair when I visited with her. She was talkative and easily engaged in a conversation. She told me a couple of times that she doesn't want to stay here another night. She was not clear on why it was important that she stay, and did not have good insight into her medical issues and the plan for her care. Said she'd already been given enough antibiotics. Last night she had trouble getting the nurse's attention when she needed him, she said. Erin was very complimentary of her , telling me that he cooks for her, cleans and does the laundry when she is not feeling well. Erin asked me to pray with her, for her, her and her kids, and we did.
--- NOTE | 2022-10-21 17:28 | DSE_ITS ---
Date of service: 10/21/22 Time of Service: 17:28 DS: Diagnosis Discharge Diagnosis (1) SBP (spontaneous bacterial peritonitis): Status: Suspected Asessment and Plan: Bacterial peritonitis was suspected based on her history of abdominal pain along with recent paracentesis as well as her laboratory findings of leukocytosis and elevated procalcitonin level. Blood cultures were obtained and remain pending at discharge, She was empirically given metronidazole and levaquin but was switched to meropenem. POCUS exam of her abdomen did not reveal enough fluid for the ED provider or sureon to perform paracentesis. Calls were made to [facility] (Dr. Garza) who agreed that the patient seemed be suffering from decompensation of her cirrhosis and may have hepatorenal syndrome and spontaneous bacterial peritonitis. She recommended paracentesis to try to make a diagnosis and she referred the case to [facility] who called me. I discussed her case w/ MICU and they were willing to accept the patient in transfer however the patient declined any transfer and insisted on leaving to go home. She left the hospital AGAINST MEDICAL ADIVCE. An Rx for Levaquin 750 mg q48 hr was sent to her pharmacy after she left the building (she would not wait around for proper discharge papers and Rx. (2) Shock: Status: Acute Asessment and Plan: Patient presented to the ED hypotgensive and encephalopathic but responded to 2 liters of iv fluids and boluses of albumin and transient support w/ norepinephrine. NE was weaned off by the morning of 10/22 and discontinued, her encephalopathy cleared overnight, ammonia level returned to normal (35>>22), she had been put back on her lactulose and given rifaximin. On the morining of her last day at [facility] she was coherent and clear and was completely oriented, not encephalopathic. Unfortunately she still exhibited poor choices of care. (3) Acute on chronic renal failure: Status: Acute Asessment and Plan: admission BUN 37 and creatinine 2.1 and remained elevated at 44 and 2.1 at discharge. (4) Hypomagnesemia: Status: Acute Asessment and Plan: Mg 1.4 on admission and remains low at discharge at 1.5 despite replacement (5) PAF (paroxysmal atrial fibrillation): Status: Acute (6) Chronic heart failure with preserved ejection fraction: Status: Acute Asessment and Plan: not in acute heart failure (7) Encephalopathy chronic: Status: Chronic (8) Adult attention deficit hyperactivity disorder: Status: Active (9) Chronic hepatitis C: Status: Chronic (10) CKD (chronic kidney disease) stage 4, GFR 15-29 ml/min: Status: Acute (11) Advanced hepatic cirrhosis: Status: Chronic (12) Cirrhosis of liver with ascites: Status: Acute (13) Hepatic encephalopathy: Status: Resolved Discharge Plan Disposition Patient Disposition: Against Medical Advice Condition: Poor Discharge Details Reason For Visit: SBP,Sepsis,Hypotension Admit Date/Time: 10/20/22 18:30 Admit Provider: Aniket Burk Attending Provider: Aniket Burk [facility] Hospital Course: This 57-year-old female with a history of hepatic cirrhosis secondary to HCV and alcoholism who ordinarily gets paracentesis every 2 weeks presented to the emergency department 2 days after her most recent paracentesis complain of abdominal pain at the site of the paracentesis entry point. For the last 2 days she has had clear drainage from the paracentesis site. On the afternoon of her presentation emergency department she was complaining of feeling feverish and having chills. She has been stooling regularly and taking her lactulose. On presentation the emergency department [id number] ultrasound was performed on her abdomen and there was not a clear path to any large collection of ascitic fluid therefore paracentesis was not repeated. Patient had hypotension in the emergency department with systolic pressures in the 70s and diastolic pressures in the 40s. Patient was resuscitated with about 2 L of fluid but in spite of that required norepinephrine drip. Blood cultures were obtained laboratory studies showed a normal white count of 8100 which went up to 17,400 by the next morning. Chemistry panel showed slight worsening of her renal function with creatinine going up from baseline of 1.8 up to 2.1 and a BUN of 37 which went up to 44 on the day of discharge. Patient's electrolytes showed a low magnesium level 1.4 and ammonia level 35 and a proBNP of 3900. Procalcitonin level was high at 24. Imaging included CT scan of the abdomen and pelvis performed without contrast because of her renal insufficiency this showed a decrease in her ascites compared to previous films with no evidence of free air or abscess collection. No findings to suggest any bowel obstruction. Patient has a right pleural effusion with adjacent basilar atelectasis. Patient was empirically started on Levaquin as she has a severe allergy to penicillin for that reason cephalosporins were not prescribed. Patient was admitted to the intensive care unit on norepinephrine drip. The next morning she was prescribed IV albumin infusions. [id number] ultrasound of her heart showed mild global LV hypokinesis with an underfilled right ventricle and IVC that was less than 2 cm and had greater than 50% collapsibility with inspiration. Patient was deemed to be fluid responsive based on the measurement of her VTI both pre and post passive leg raise. Antibiotics were switched from Levaquin to meropenem. Consultation was obtained with Dr. Wing Del Toro from surgery who evaluated her in the emergency department and concurred that there was not enough fluid to do a paracentesis. The next morning she was seen by Dr. Bernice Polanco from pulmonary/critical care medicine. Please see Dr. Polanco and Dr. Del Toro's notes for details. Because the norepinephrine was going through a peripheral IV was recommended to remove the the norepinephrine from the peripheral IV and either place a central line if she needs further vasopressors try to wean her off the norepinephrine. Norepinephrine was discontinued the patient was able to maintai n her blood pressures. I personally had multiple discussions with the patient regarding her goals of care and she refuses to accept that she is having liver failure and would only accept the recommendations of her wire brush operator Dr. Noriega. Patient insisted that she did not need to stay in the hospital and insisted on leaving the hospital on the evening of 10/22/2022. She left AGAINST MEDICAL ADVICE. Home Meds and New Rx's Prescriptions: New levofloxacin 750 mg tablet 750 mg PO Q48H 9 Days Qty: 5 0RF Continued nitroglycerin [Nitrostat] 0.4 mg tablet, sublingual 0.4 mg sublingual Q5M PRN Rx Instructions: do not exceed 3 doses per episode lactulose 20 gram/30 mL solution 30 ml PO DAILY PRN Rx Instructions: to achieve 3-4 stools/day 07/28/21 cgc spironolactone 50 mg tablet 200 mg PO DAILY Hold Instructions: Resume on 03/05/22. Rx Instructions: from [facility] hepatology note 01/06/22 acetaminophen 500 mg Tablet 1,000 mg PO Q6H PRN Xifaxan 550 mg tablet 550 mg PO BID Label Comments: TAKE ONE TABLET BY MOUTH TWICE A DAY. Pt. states she doesnt take furosemide 80 mg tablet 80 mg PO DAILY Label Comments: TAKE ONE TABLET BY MOUTH EVERY DAY gabapentin 100 mg Tablet 200 mg PO HS PRN hydrocortisone [Procto-Med HC] 2.5 % cream with perineal applicator 1 applic topical PRN PRN Label Comments: APPLY TWO TO FOUR TIMES PER DAY NEEDED metoprolol tartrate 50 mg tablet 1 tab PO TID Label Comments: TAKE ONE TABLET BY MOUTH EVERY 8 HOURS magnesium oxide 400 mg magnesium tablet 200 mg PO BID acetaminophen 325 mg Capsule 325 mg PO ONCE PRN Discharge Instructions Instructions: Peritonitis (DC) Activity:: Activity as Tolerated Equipment/Supplies:: No Equipment Needed Diet:: Low Sodium Discharge Orders Discharge Orders: Discharge Order (Routine); Ordered 10/21/22 Ordered By: Hamilton Alfonso Discharge Data Discharge Date/Time-TO BE ENTERED AT DEPARTURE: 10/21/22 16:50 DS: Summary Time Spent with Patient providing and/or coordinating discharge services: Less than 30 minutes Status at Discharge Functional status at discharge: independent ambulation Overall status at discharge: patient is not back to baseline Mental Status: mental status grossly normal Speech and Movement: speech and movement normal Mood: congruent mood Affect: normal affect Exam Psych Mental Status: mental status grossly normal Speech and Movement: speech and movement normal Mood: congruent mood Affect: normal affect DS: Data Vitals/I&O Vitals and I&O: Vital Signs Temperature 37.0 C 10/21/22 16:08 Temperature Source Temporal Artery Scan 10/21/22 16:08 Pulse 95 H 10/21/22 15:00 Pulse 111 H 10/21/22 16:00 Respiratory Rate 18 10/21/22 16:01 Respiratory Effort Non-Labored 10/21/22 16:08 Respiratory Depth Normal 10/21/22 16:08 Respiratory Pattern Normal 10/21/22 16:08 Blood Pressure 99/80 L 10/21/22 16:00 Blood Pressure Mean 83 10/21/22 16:00 Blood Pressure Position Supine 10/21/22 16:08 Pulse Oximetry 96 10/21/22 16:08 Oxygen Delivery Method Room Air 10/21/22 16:08 Oxygen Flow Rate 0 10/21/22 16:08 Pain Level 0 10/21/22 16:08 Intake & Output 10/20/22 10/21/22 10/21/22 23:59 11:59 23:59 Intake Total 1887. / 9512.618 7584.266 / 2439.266 750 / 2439.266 Output Total 450 / 575 125 / 575 Balance 1888.098 / 9199.467 4131.266 / 1864.266 625 / 1864.266 Weight 65.2 kg Intake: IV 188.8 / 1987.8 489.266 / 639.266 150 / 639.266 Oral 1200 / 1800 600 / 1800 Output: Urine 450 / 575 125 / 575 Other: Urine Color Light Michelle Dark Michelle Urine Appearance Clear Clear Urine Odor None Stool Size Small Stool Characteristics Soft Formed Brown Data Completed and Pending Labs on day of discharge: Labs from last 24 hours 10/21/22 10/21/22 10/21/22 Unknown Unknown 09:40 WBC RBC Hgb Hct MCV MCH MCHC RDW Plt Count MPV Immature Gran % Neutrophils % Band Neutrophils % Lymphocytes % Atypical Lymphs % Monocytes % Eosinophils % Basophils % Nucleated RBC % Absolute Neutrophils Absolute Lymphocytes Absolute Monocytes Absolute Eosinophils Absolute Basophils RBC Morphology PT INR Fibrinogen Cancelled VBG Lactate Sodium Potassium Chloride Carbon Dioxide Anion Gap BUN Creatinine Est GFR (CKD-EPI 2020) Glucose Calcium Magnesium Total Bilirubin AST ALT Alkaline Phosphatase Ammonia Troponin I < 50 C-Reactive Protein 6.21 H NT-Pro-B Natriuret Pep Total Protein Albumin Procalcitonin COVID-19 Source SARS-CoV-2 (PCR) HCV RNA Qual (PCR) Hepatitis C RNA Quant Add-On Test Request TNP 10/21/22 10/21/22 10/21/22 09:40 09:40 06:40 WBC RBC Hgb Hct MCV MCH MCHC RDW Plt Count MPV Immature Gran % Neutrophils % Band Neutrophils % Lymphocytes % Atypical Lymphs % Monocytes % Eosinophils % Basophils % Nucleated RBC % Absolute Neutrophils Absolute Lymphocytes Absolute Monocytes Absolute Eosinophils Absolute Basophils RBC Morphology PT INR Fibrinogen Pending VBG Lactate Sodium Potassium Chloride Carbon Dioxide Anion Gap BUN Creatinine Est GFR (CKD-EPI 2020) Glucose Calcium Magnesium Total Bilirubin AST ALT Alkaline Phosphatase Ammonia 22 Troponin I C-Reactive Protein NT-Pro-B Natriuret Pep Total Protein Albumin Procalcitonin 24.0 COVID-19 Source SARS-CoV-2 (PCR) HCV RNA Qual (PCR) Hepatitis C RNA Quant Add-On Test Request 10/21/22 10/21/2210/21/23 06:40 06:40 05:30 WBC RBC Hgb Hct MCV MCH MCHC RDW Plt Count MPV Immature Gran % Neutrophils % Band Neutrophils % Lymphocytes % Atypical Lymphs % Monocytes % Eosinophils % Basophils % Nucleated RBC % Absolute Neutrophils Absolute Lymphocytes Absolute Monocytes Absolute Eosinophils Absolute Basophils RBC Morphology PT INR Fibrinogen VBG Lactate 2.8 H* Sodium Potassium Chloride Carbon Dioxide Anion Gap BUN Creatinine Est GFR (CKD-EPI 2020) Glucose Calcium Magnesium Total Bilirubin AST ALT Alkaline Phosphatase Ammonia Troponin I C-Reactive Protein NT-Pro-B Natriuret Pep 3987 H Total Protein Albumin Procalcitonin COVID-19 Source SARS-CoV-2 (PCR) HCV RNA Qual (PCR) Pending Hepatitis C RNA Quant Pending Add-On Test Request 10/21/22 10/21/22 10/21/22 05:20 05:20 05:20 WBC 17.46 H RBC 3.35 L Hgb 10.7 L D Hct 31.8 L MCV 95 MCH 31.9 MCHC 33.6 RDW 16.1 H Plt Count 145 MPV 10.4 Immature Gran % 0.0 Neutrophils % 75.0 Band Neutrophils % 7 Lymphocytes % 6.0 Atypical Lymphs % 2 Monocytes % 10.0 Eosinophils % 0.0 Basophils % 0.0 Nucleated RBC % 0.0 Absolute Neutrophils 14.32 H Absolute Lymphocytes 1.40 Absolute Monocytes 1.75 H Absolute Eosinophils 0.00 Absolute Basophils 0.00 RBC Morphology Normal PT 16.1 H INR 1.6 H Fibrinogen VBG Lactate Sodium 130 L Potassium 4.3 Chloride 100 Carbon Dioxide 21.1 Anion Gap 8.9 BUN 44 H Creatinine 2.1 H Est GFR (CKD-EPI 2020) 27.31 Glucose 108 H Calcium 8.7 Magnesium 1.5 L Total Bilirubin 4.0 H AST 30 ALT 25 Alkaline Phosphatase 98 Ammonia Troponin I C-Reactive Protein NT-Pro-B Natriuret Pep Total Protein 5.3 L Albumin 2.7 L Procalcitonin COVID-19 Source SARS-CoV-2 (PCR) HCV RNA Qual (PCR) Hepatitis C RNA Quant Add-On Test Request 10/20/22 10/20/22 17:41 15:30 WBC RBC Hgb Hct MCV MCH MCHC RDW Plt Count MPV Immature Gran % Neutrophils % Band Neutrophils % Lymphocytes % Atypical Lymphs % Monocytes % Eosinophils % Basophils % Nucleated RBC % Absolute Neutrophils Absolute Lymphocytes Absolute Monocytes Absolute Eosinophils Absolute Basophils RBC Morphology PT 13.1 H INR 1.3 H Fibrinogen VBG Lactate Sodium Potassium Chloride Carbon Dioxide Anion Gap BUN Creatinine Est GFR (CKD-EPI 2020) Glucose Calcium Magnesium Total Bilirubin AST ALT Alkaline Phosphatase Ammonia Troponin I C-Reactive Protein NT-Pro-B Natriuret Pep Total Protein Albumin Procalcitonin COVID-19 Source Nasal/Nares SARS-CoV-2 (PCR) Negative HCV RNA Qual (PCR) Hepatitis C RNA Quant Add-On Test Request 10/20/22 15:46 Blood Blood Culture - Pending 10/20/22 16:50 Blood Blood Culture - Pending Preliminary micro results at discharge 10/20/22 15:46 Blood Culture - Pending Blood 10/20/22 16:50 Blood Culture - Pending Blood [facility] All Active Problems (Updated 10/21/22 @ 18:43 by Hamilton Alfonso MD) Hypotension (Acute) Lactic acidosis (Acute) 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) (Acute) Discharge planning issues (Acute) Hypomagnesemia (Acute) Acute on chronic renal failure (Acute) Abdominal pain (Acute) Shock (Acute) History of abdominal paracentesis (Acute) Tense ascites (Acute) Hypertension (Chronic ~02/2022) 03/17/22 [facility] Other ascites (Acute ~01/2022) 02/09/22 [facility], weekly thoracentesis PAF (paroxysmal atrial fibrillation) (Acute) 02/09/22 [facility], ZIO Patch placed Chronic heart failure with preserved ejection fraction (Acute) 02/09/22 [facility] Encephalopathy chronic (Chronic) Congestive heart failure (Acute 04/22/13) Pleural effusion (Acute 04/22/13) History of gallstones (Active) Depressive disorder (Active) Anxiety (Active) Adult attention deficit hyperactivity disorder (Active) Constipation (Active) Irritable colon (Active) Smoking history (Active) History of surgery (Active) Uterine ablation approxinmately 2006 Two sections. Chronic hepatitis C (Chronic) Treated and cured, relapsed 02/2021 completed 24 wks Harvoni and ribavirin per note 05/05/22 CKD (chronic kidney disease) stage 4, GFR 15-29 ml/min (Acute) Atrial fibrillation with controlled ventricular rate (Acute) Advanced hepatic cirrhosis (Chronic) Hep C & ETOH Nephrotic syndrome (Acute) Hypokalemia (Acute) Cirrhosis of liver with ascites (Acute) 11/10/[address] [facility] Hypokalemia due to excessive renal loss of potassium (Acute) Hydrothorax (Acute) 03/31/21 [facility] 02/09/22 [facility] Seasonal allergic rhinitis (Acute) 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) (Acute) Per [facility] note from 05/11/21 Medical History Anxiety Attention deficit hyperactivity disorder, combined type 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 History of abdominal paracentesis Irritable colon Renal failure syndrome SVT (supraventricular tachycardia) Surgical History section x2 History of ileal conduit History of thoracentesis (~12/28/21) 08/03/20,08/10/20 08/21/20,08/31/20 Hx of tubal ligation S/P abdominal paracentesis (~12/28/21) Family History Mother Hypertensive disorder, systemic arterial Cancer Cervical Father Hypertensive disorder, systemic arterial Maternal Grandfather Diabetes Maternal Grandmother Cancer Ovarian Other Cirrhosis due to hemochromatosis Social History Smoking/Tobacco Use Status: Former Tobacco Use Quit Date: 09/18/18 Smoking risk assessment performed?: Yes Alcohol Intake: former Drug use: Never Substance use type: does not use Adopted: No Caregiver/Support person: No Foster care: No Household members: family Housing: house Number of Children: 4 number of grandchildren: 2 Communication Needs: None Do you need help understanding health information?: Often current occupation: Used to work for [employer] [place] Current gender identity: female What is your relationship status?: How often do you talk on the phone with friends or family?: three or more times per week Panel score (0-1 are the most socially isolated patients): 2 What type of physical activity do you participate in: none Seatbelt use: always Drive intox or ride w/intox race car driver: No Working smoke detector in home: Yes Fire extinguisher in home: Yes Carbon monox detector in home: Yes Do you feel safe at home: Yes Do you feel safe in your relationship?: Yes Additional Social history: Lives with and youngest daughter in [place]. 2 dogs. Disabled Time Spent with Patient Time Spent with Patient: <45 minutes Time was spent: preparing to see the patient(eg.review tests), ordering medications,tests, procedures, indepentently interpreting results and care coordination
[2022-10-21 19:46] LABS: Fibrinogen 212 mg/dL (171-384)
[2022-10-24 14:07] LABS: HCV RNA Qualitative Undetected (Undetected)
== END 2022-10-21 16:50 | disposition left against medical advice (07) | DRG 371 ==
LOC: ER 19:55 → ICU 20:47
PROVIDERS: Student in an Organized Health Care Education/Training Program; Surgery; Admitting Provider Family Medicine; Emergency Provider Student in an Organized Health Care Education/Training Program; PCP Family Medicine; Visit Provider Family Medicine
DX: K65.2 Spontaneous bacterial peritonitis (principal); R57.8 Other shock; G93.49 Other encephalopathy; I42.9 Cardiomyopathy, unspecified; I50.32 Chronic diastolic (congestive) heart failure; N18.4 Chronic kidney disease, stage 4 (severe); I13.0 Hypertensive heart and chronic kidney disease with heart failure and stage 1 through stage 4 chronic kidney disease, or unspecified chronic kidney disease; I47.1 Supraventricular tachycardia; N17.9 Acute kidney failure, unspecified; K74.69 Other cirrhosis of liver; E83.42 Hypomagnesemia; K70.11 Alcoholic hepatitis with ascites; I48.0 Paroxysmal atrial fibrillation; F32.A Depression, unspecified; F41.9 Anxiety disorder, unspecified; Z87.891 Personal history of nicotine dependence; F90.9 Attention-deficit hyperactivity disorder, unspecified type; K59.00 Constipation, unspecified; K58.9 Irritable bowel syndrome, unspecified; E87.6 Hypokalemia; D72.829 Elevated white blood cell count, unspecified; K80.20 Calculus of gallbladder without cholecystitis without obstruction; B18.2 Chronic viral hepatitis C
CPT/HCPCS: 36415; 80053; 83690; 84145; 85384; 87040; 87522; 87635; 93005; 93308; 96361; 96365; 96367; 96375; 99222; 99232; 99291; 74176; 81003; 82140; 83605; 83735; 83880; 84484; 85025; 85610; 86140; 93010; 99238; J1956; J2405; J3475

== ENCOUNTER 2022-11-01 07:18 | Day surgery (SDC) | payer MEDICARE, SELFPAY ==
[2022-11-01 07:26] VITALS: BP 121/89; PULSE 71; RESP 20; TEMP 35.9; O2SAT 100
--- NOTE | 2022-11-01 08:09 | ED.GENADUL_ITS ---
Discharge Plan Disposition Condition: Stable Discharge Details Chief Complaint: RespSymp Attending Provider: Hazel Lindsey Primary Care Provider: Dillon Muller ED Provider: Aniket Morgan Discharge Instructions Activity:: Activity as Tolerated Remove Dressings/Wound Care:: 24 hours Shower/Bathe:: 24 hours Discharge Orders Discharge Orders: Discharge Order (Routine); Ordered 11/01/22 Ordered By: Jeremías Moreno Discharge Data Discharge Date/Time-TO BE ENTERED AT DEPARTURE: 11/01/22 09:43 Medical Decision Making This is an afebrile and not tachycardic 57-year-old female with decompensated cirrhosis requiring scheduled paracenteses in the emergency department in the setting of worsening abdominal pain and swelling. Patient reports that she is due to have a paracentesis scheduled for tomorrow. She reports that she has had worsening abdominal pain and shortness of breath when she lays flat. She has no significant lower extremity edema to suggest exacerbation of her CHF. She is not hypoxic, suspicion is low for pneumonia given lack of cough and fevers. Her abdomen is soft nontender so I am not concerned for peritonitis. She has not been confused to suggest hepatic encephalopathy. Her vitals are not consistent with sepsis so I did not order a lactate nor draw blood cultures nor initiated empiric antibiotics. She has not had any recent diarrhea to suggest C. difficile. She has been n.p.o. since midnight. We will touch base with general surgery for paracentesis. 8:38 AM I spoke with Dr. Moreno from general surgery. She graciously agreed to help complete a paracentesis for this patient. I ordered basic labs which will be drawn in operative area. HPI General Date/Time Provider Initiated Documentation: 11/01/22 07:20 . HPI Narrative: This is a 57-year-old female with a history of end-stage cirrhosis and chronic hepatitis C with recurrent paracentesis in the emergency department with worsening abdominal distention and shortness of breath. Patient reports that she is due to have a paracentesis performed tomorrow. She reports that she has had difficulty sleeping overnight secondary to her worsening abdominal distentio n and shortness of breath. She reports that she has not had any nausea vomiting or any fevers. She denies any ethanol use. She has not been confused. She reports over the past several weeks she has had an unintentional 30 pound weight gain. She said no recent antibiotics. She has been n.p.o. since midnight. She denies chest pain dysuria and frequency. Related Data Home Medications Medication Instructions Recorded Confirmed nitroglycerin 0.4 mg sublingual 0.4 mg sublingual Q5M PRN 04/05/21 11/01/22 tablet (Nitrostat) lactulose 20 gram/30 mL oral 30 ml PO DAILY PRN 07/29/21 11/01/22 solution acetaminophen 500 mg tablet 1,000 mg PO Q6H PRN 10/05/21 11/01/22 rifaximin 550 mg tablet (Xifaxan) 550 mg PO BID 11/16/21 11/01/22 furosemide 80 mg tablet 80 mg PO DAILY 12/24/21 11/01/22 spironolactone 50 mg tablet 200 mg PO DAILY 01/06/22 11/01/22 gabapentin 100 mg tablet 200 mg PO HS PRN 02/18/22 11/01/22 hydrocortisone 2.5 % topical cream 1 applic topical PRN PRN 03/29/22 11/01/22 with perineal applicator (Procto-Med HC) metoprolol tartrate 50 mg tablet 1 tab PO TID 03/29/22 11/01/22 magnesium oxide 200 mg PO BID 05/31/22 11/01/22 acetaminophen 325 mg capsule 325 mg PO ONCE PRN 07/12/22 11/01/22 Allergies Allergy/AdvReac Type Severity Reaction Status Date / Time amphetamine aspartate Allergy Severe Facial Verified 11/01/22 09:28 [From Adderall] Swelling, Blisters, Tongue Swelling, Rash, amphetamine sulfate Allergy Severe Facial Verified 11/01/22 09:28 [From Adderall] Swelling, Blisters, Tongue Swelling, Rash, dextroamphetamine saccharate Allergy Severe Facial Verified 11/01/22 09:28 [From Adderall] Swelling, Blisters, Tongue Swelling, Rash, dextroamphetamine sulfate Allergy Severe Facial Verified 11/01/22 09:28 [From Adderall] Swelling, Blisters, Tongue Swelling, Rash, Penicillins Allergy Intermediate Hives, Verified 11/01/22 09:28 Rash, Tongue Swelling codeine AdvReac Mild Constipatio Verified 11/01/22 09:28 n General Stated Complaint: RespSymp JOE: 2 PFSH All Active Problems Hypotension (Acute) Lactic acidosis (Acute) 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) (Acute) Discharge planning issues (Acute) Hypomagnesemia (Acute) Acute on chronic renal failure (Acute) Abdominal pain (Acute) Shock (Acute) History of abdominal paracentesis (Acute) Tense ascites (Acute) Hypertension (Chronic ~02/2022) 03/17/22 [facility] [place] Cardiology Other ascites (Acute ~01/2022) 02/09/22 [facility] GI, weekly thoracentesis PAF (paroxysmal atrial fibrillation) (Acute) 02/09/22 [facility] Cardiology, ZIO Patch placed Chronic heart failure with preserved ejection fraction (Acute) 02/09/22 [facility] Cardiology Encephalopathy chronic (Chronic) Congestive heart failure (Acute 04/22/13) Pleural effusion (Acute 04/22/13) History of gallstones (Active) Depressive disorder (Active) Anxiety (Active) Adult attention deficit hyperactivity disorder (Active) Constipation (Active) Irritable colon (Active) Smoking history (Active) History of surgery (Active) Uterine ablation approxinmately 2006 Two sections. Chronic hepatitis C (Chronic) Treated and cured, relapsed 02/2021 completed 24 wks Harvoni and ribavirin per note 05/05/22 CKD (chronic kidney disease) stage 4, GFR 15-29 ml/min (Acute) Atrial fibrillation with controlled ventricular rate (Acute) Advanced hepatic cirrhosis (Chronic) Hep C & ETOH Nephrotic syndrome (Acute) Hypokalemia (Acute) Cirrhosis of liver with ascites (Acute) 11/10/21 Telehealth [facility] Gastro Hypokalemia due to excessive renal loss of potassium (Acute) Hydrothorax (Acute) 03/31/21 [facility] Gastro 02/09/22 [facility] GI Seasonal allergic rhinitis (Acute) 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) (Acute) Per [facility] Gastro note from 05/11/21 Medical History Anxiety Attention deficit hyperactivity disorder, combined type 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 History of abdominal paracentesis Irritable colon Palliative care encounter Renal failure syndrome SVT (supraventricular tachycardia) Surgical History section x2 History of ileal conduit History of thoracentesis (~12/28/21) 08/03/20,08/10/20 08/21/20,08/31/20 Hx of tubal ligation S/P abdominal paracentesis (~12/28/21) Family History Mother Hypertensive disorder, systemic arterial Cancer Cervical Father Hypertensive disorder, systemic arterial Maternal Grandfather Diabetes Maternal Grandmother Cancer Ovarian Other Cirrhosis due to hemochromatosis Social History Smoking/Tobacco Use Status: Former Tobacco Use Quit Date: 09/18/18 Smoking risk assessment performed?: Yes Alcohol Intake: former Drug use: Never Substance use type: does not use Adopted: No Caregiver/Support person: No Foster care: No Household members: family Housing: house Number of Children: 4 number of grandchildren: 2 Communication Needs: None Do you need help understanding health information?: Often current occupation: Used to work for [employer] Current gender identity: female What is your relationship status?: How often do you talk on the phone with friends or family?: three or more times per week Panel score (0-1 are the most socially isolated patients): 2 What type of physical activity do you participate in: none Seatbelt use: always Drive intox or ride w/intox 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 Exam Narrative Exam Narrative: General: Well-appearing in no acute distress speaking in complete sentences. Head: Normocephalic, atraumatic Ear, nose, mouth, throat: Grossly normal inspection. Normal voice, handling secretions normally. Neck: Trachea midline. Cardiovascular: Well-perfused distal extremities. No JVD. Respiratory: Nonlabored respiration. Gastrointestinal: Distended abdomen which is soft nontender. No rebound or guarding. Musculoskeletal: No significant lower extremity pitting edema. Moving all 4 extremities spontaneously. Skin: Normal for age and race, grossly normal temperature and turgor. No acute rash. Neurologic: Alert and appropriate, no apparent acute deficits. Psychiatric: Mood and manner are appropriate. Grooming and personal hygiene are appropriate. Course Vital Signs Vital signs: Vital Signs Temperature 35.9 C L 02/14/23 07:26 Pulse 71 11/01/22 07:26 Respiratory Rate 20 11/01/22 07:26 Blood Pressure 121/89 11/01/22 07:26 Pulse Oximetry 100 11/01/22 07:26 Temperature 35.9 C L 11/01/22 07:26 Temperature Source Tympanic 11/01/22 07:26 Pulse 71 11/01/22 07:26 Respiratory Rate 20 11/01/22 07:26 Blood Pressure 121/89 11/01/22 07:26 Blood Pressure Position Sitting 11/01/22 07:26 Pulse Oximetry 100 11/01/22 07:26 Oxygen Delivery Method Room Air 11/01/22 07:26 Oxygen Flow Rate 0 11/01/22 07:26
--- NOTE | 2022-11-01 09:21 | SCONE_ITS ---
Documented by User: KLEVER Bianchi 11/01/22 09:35 Date of service: 11/01/22 Time of Service: 09:21 Assessment and Plan Assessment and plan (1) Abdominal pain: Status: Acute Assessment and plan: Discussed with Erin proceeding with therapeutic paracentesis with Dr. Lindsey in the OR. All questions were answered to patient's satisfaction. She will be brought down to surgery to proceed with paracentesis. Will cancel her procedure scheduled for later in the week. (2) Tense ascites: Status: Acute History of Present Illness History of Present Illness Chief Complaint: Ascites and Abdominal Pain Narrative: 57 y/o female with a history of CHF, Atrial fibrillation, CKD, Cirrhosis and HTN well known to the surgical group presented to the ER with complaints abdominal fullness and discomfort. Patient states she was attempting to await for her scheduled paracentesis later in the week. However, given her level of discomfort she is unable to hold off. PFSH All Active Problems Hypotension (Acute) Lactic acidosis (Acute) 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) (Acute) Discharge planning issues (Acute) Hypomagnesemia (Acute) Acute on chronic renal failure (Acute) Abdominal pain (Acute) Shock (Acute) History of abdominal paracentesis (Acute) Tense ascites (Acute) Hypertension (Chronic ~02/2022) 03/17/22 [facility] [place] Cardiology Other ascites (Acute ~01/2022) 02/09/22 [facility] [place] GI, weekly thoracentesis PAF (paroxysmal atrial fibrillation) (Acute) 02/09/22 [facility] [place] Cardiology, ZIO Patch placed Chronic heart failure with preserved ejection fraction (Acute) 02/09/22 [facility] [place] Cardiology Encephalopathy chronic (Chronic) Congestive heart failure (Acute 04/22/13) Pleural effusion (Acute 04/22/13) History of gallstones (Active) Depressive disorder (Active) Anxiety (Active) Adult attention deficit hyperactivity disorder (Active) Constipation (Active) Irritable colon (Active) Smoking history (Active) History of surgery (Active) Uterine ablation approxinmately 2006 Two sections. Chronic hepatitis C (Chronic) Treated and cured, relapsed 02/2021 completed 24 wks Harvoni and ribavirin per note 05/05/22 CKD (chronic kidney disease) stage 4, GFR 15-29 ml/min (Acute) Atrial fibrillation with controlled ventricular rate (Acute) Advanced hepatic cirrhosis (Chronic) Hep C & ETOH Nephrotic syndrome (Acute) Hypokalemia (Acute) Cirrhosis of liver with ascites (Acute) 11/10/21 Telehealth [facility] [place] Gastro Hypokalemia due to excessive renal loss of potassium (Acute) Hydrothorax (Acute) 03/31/21 [facility] [place] Gastro 02/09/22 [facility] [place] GI Seasonal allergic rhinitis (Acute) 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) (Acute) Per [facility] [place] Gastro note from 05/11/21 Medical History Anxiety Attention deficit hyperactivity disorder, combined type 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 History of abdominal paracentesis Irritable colon Palliative care encounter Renal failure syndrome SVT (supraventricular tachycardia) Surgical History section x2 History of ileal conduit History of thoracentesis (~12/28/21) 08/03/20,08/10/20 08/21/20,08/31/20 Hx of tubal ligation S/P abdominal paracentesis (~12/28/21) Family History Mother Hypertensive disorder, systemic arterial Cancer Cervical Father Hypertensive disorder, systemic arterial Maternal Grandfather Diabetes Maternal Grandmother Cancer Ovarian Other Cirrhosis due to hemochromatosis Social History Smoking/Tobacco Use Status: Former Tobacco Use Quit Date: 09/18/18 Smoking risk assessment performed?: Yes Alcohol Intake: former Drug use: Never Substance use type: does not use Adopted: No Caregiver/Support person: No Foster care: No Household members: family Housing: house Number of Children: 4 number of grandchildren: 2 Communication Needs: None Do you need help understanding health information?: Often current occupation: Used to work for [employer] Current gender identity: female What is your relationship status?: How often do you talk on the phone with friends or family?: three or more times per week Panel score (0-1 are the most socially isolated patients): 2 What type of physical activity do you participate in: none Seatbelt use: always Drive intox or ride w/intox milk tanker driver: No Working smoke detector in home: Yes Fire extinguisher in home: Yes Carbon monox detector in home: Yes Do you feel safe in your relationship?: Yes Additional Social history: Spouse here with pt today. Exam Const General: cooperative, healthy appearing and acute distress mild Orientation: alert and oriented x3 Resp Effort & Inspection: normal respiratory effort, no audible wheezes and no cough GI Inspection: distended Palpation: firm, no guarding and ascites Results Last Vital Signs Temp 35.9 C L 11/01/22 07:26 Pulse 71 11/01/22 07:26 Resp 20 11/01/22 07:26 BP 121/89 11/01/22 07:26 Pulse Ox 100 11/01/22 07:26 Labs 11/01/22 08:34 11/01/22 09:16 Documented by User: Hazel Lindsey, DO 11/01/22 12:15 Assessment and Plan Assessment and plan (1) Abdominal pain: Status: Acute Assessment and plan: Discussed with Erin proceeding with therapeutic paracentesis with Dr. Lindsey in the OR. All questions were answered to patient's satisfaction. She will be brought down to surgery to proceed with paracentesis. Will cancel her procedure scheduled for later in the week. pt seen adn examined. agree w/ above (2) Tense ascites: Status: Acute PFSH All Active Problems Hypotension (Acute) Lactic acidosis (Acute) 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) (Acute) Discharge planning issues (Acute) Hypomagnesemia (Acute) Acute on chronic renal failure (Acute) Abdominal pain (Acute) Shock (Acute) History of abdominal paracentesis (Acute) Tense ascites (Acute) Hypertension (Chronic ~02/2022) 03/17/22 [facility] [place] Cardiology Other ascites (Acute ~01/2022) 02/09/22 [facility] [place] GI, weekly thoracentesis PAF (paroxysmal atrial fibrillation) (Acute) 5/25/22 [facility] [place] Cardiology, ZIO Patch placed Chronic heart failure with preserved ejection fraction (Acute) 02/09/22 [facility] [place] Cardiology Encephalopathy chronic (Chronic) Congestive heart failure (Acute 04/22/13) Pleural effusion (Acute 04/22/13) History of gallstones (Active) Depressive disorder (Active) Anxiety (Active) Adult attention deficit hyperactivity disorder (Active) Constipation (Active) Irritable colon (Active) Smoking history (Active) History of surgery (Active) Uterine ablation approxinmately 2006 Two sections. Chronic hepatitis C (Chronic) Treated and cured, relapsed 02/2021 completed 24 wks Harvoni and ribavirin per note 05/05/22 CKD (chronic kidney disease) stage 4, GFR 15-29 ml/min (Acute) Atrial fibrillation with controlled ventricular rate (Acute) Advanced hepatic cirrhosis (Chronic) Hep C & ETOH Nephrotic syndrome (Acute) Hypokalemia (Acute) Cirrhosis of liver with ascites (Acute) 11/10/21 Telehealth [facility] [place] Gastro Hypokalemia due to excessive renal loss of potassium (Acute) Hydrothorax (Acute) 03/31/21 [facility] [place] Gastro 02/09/22 [facility] [place] GI Seasonal allergic rhinitis (Acute) 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) (Acute) Per [facility] [place] Gastro note from 05/11/21 Medical History Anxiety Attention deficit hyperactivity disorder, combined type 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 History of abdominal paracentesis Irritable colon Palliative care encounter Renal failure syndrome SVT (supraventricular tachycardia) Surgical History section x2 History of ileal conduit History of thoracentesis (~12/28/21) 08/03/20,08/10/20 08/21/20,08/31/20 Hx of tubal ligation S/P abdominal paracentesis (~12/28/21) Family History Mother Hypertensive disorder, systemic arterial Cancer Cervical Father Hypertensive disorder, systemic arterial Maternal Grandfather Diabetes Maternal Grandmother Cancer Ovarian Other Cirrhosis due to hemochromatosis Social History Smoking/Tobacco Use Status: Former Tobacco Use Quit Date: 09/18/18 Smoking risk assessment performed?: Yes Alcohol Intake: former Drug use: Never Substance use type: does not use Adopted: No Caregiver/Support person: No Foster care: No Household members: family Housing: house Number of Children: 4 number of grandchildren: 2 Communication Needs: None Do you need help understanding health information?: Often current occupation: Used to work for [employer] Current gender identity: female What is your relationship status?: How often do you talk on the phone with friends or family?: three or more times per week Panel score (0-1 are the most socially isolated patients): 2 What type of physical activity do you participate in: none Seatbelt use: always Drive intox or ride w/intox milk tanker driver: No Working smoke detector in home: Yes Fire extinguisher in home: Yes Carbon monox detector in home: Yes Do you feel safe in your relationship?: Yes Additional Social history: Spouse here with pt today. Results Labs 11/01/22 08:34 11/01/22 09:16
[2022-11-01 09:38] VITALS: BP 103/65; PULSE 74; RESP 18; TEMP 36.5; O2SAT 100
[2022-11-01 10:19] LABS: Ammonia < 10 umol/L (11-32)
[2022-11-01 10:42] LABS: ALT 23 U/L (14-59); AST 33 U/L (15-37); Albumin 2.7 g/dL (3.4-5.0); Alkaline Phosphatase 184 U/L (46-116); Anion Gap 4.8 mmol/L (3-11); BUN 50 mg/dL (7-18); Bilirubin, Total 2.5 mg/dL (0.2-1.0); CO2 25.2 mmol/L (21.0-32.0); CREATININE 1.9 mg/dL (0.55-1.02); Calcium 8.7 mg/dL (8.5-10.1); Chloride 99 mmol/L (98-107); Glucose 85 mg/dL (74-106); NT-proBNP 3123 pg/mL (<300); Potassium 4.7 mmol/L (3.5-5.1); Sodium 129 mmol/L (136-145); TSH (W/Ref FT4) 3.89 uIU/mL (0.36-3.74); Total Protein 5.6 g/dL (6.4-8.2)
[2022-11-01 11:08] LABS: FREE T4 1.45 ng/dL (0.76-1.46)
[2022-11-01 11:36] LABS: C-Reactive Protein 2.04 mg/dL (0.0-0.3)
[2022-11-01 11:42] LABS: Abs Immature Grans 0.08 10^3/uL (0.0-0.06); Absolute Basophil Count 0.07 10^3/uL (0.0-0.2); Absolute Eosinophil Count 0.08 10^3/uL (0.0-0.7); Absolute Lymphocyte Count 1.09 10^3/uL (1.2-3.4); Absolute Monocyte Count 0.77 10^3/uL (0.1-0.8); Absolute Neutrophil Count 4.72 10^3/uL (1.2-6.7); Eosinophils % 1.2; HCT 33.1 % (36.0-46.0); HGB 11.1 g/dL (11.2-15.7); Immature Grans % 1.2; MCHC 33.5 % (32.0-36.0); MCV 95 fL (80-95); MPV 9.4 fL (8.0-11.0); Monocytes % 11.3; Neutrophils % 69.3; Platelet Count 152 10^3/uL (130-400); RBC 3.47 10^6/uL (3.93-5.22); RDW 16.6 % (11.7-14.6); WBC 6.81 10^3/uL (4.4-10.8)
[2022-11-01 11:48] LABS: Ferritin 231 ng/mL (8-252); Folate 17.3 ng/mL (8.6-20.0); Vitamin B12 884 pg/mL (193-986)
--- NOTE | 2022-11-01 12:16 | W.PM.OP ---
Date of service: 11/01/22 Time of Service: 12:16 Operative Note Operative Note PRE-OP DIAGNOSIS: cirrohosis Refer to Anesthesia Record Procedure Description: The patient is brought to the procedure room and placed in the supine position.? Placement chosen on top in the right upper quadrant.? A time-out is done.? Ultrasound is used to localize the pocket.? The area is prepped and draped in the usual sterile fashion using a ChloraPrep scrub solution.? 10 cc's of 1% Lidocaine with epinephrine is used for local anesthetization.? The abdomen is punctured and the catheter is inserted.? 3 liters of light yellow fluid is evacuated today.? The catheter is removed.? Pressure dressing is applied.? The patient tolerated the procedure well without complication.
[2022-11-01 13:20] VITALS: BP 103/77; PULSE 91; RESP 18; TEMP 36.4; O2SAT 97
--- NOTE | 2022-11-01 13:25 | W.PM.DS.N ---
DS: Diagnosis Discharge Diagnosis (1) Abdominal pain: Status: Acute (2) Tense ascites: Status: Acute Discharge Plan Disposition Patient Disposition: Home Discharge Details Attending Provider: Hazel Lindsey Primary Care Provider: Dillon Muller [place] Meds and New Rx's Prescriptions: No Action nitroglycerin [Nitrostat] 0.4 mg tablet, sublingual 0.4 mg sublingual Q5M PRN Rx Instructions: do not exceed 3 doses per episode lactulose 20 gram/30 mL solution 30 ml PO DAILY PRN Rx Instructions: to achieve 3-4 stools/day 07/28/21 cgc spironolactone 50 mg tablet 200 mg PO DAILY Hold Instructions: Resume on 03/05/22. [place] Inst[place] [facility] [place] acetaminophen 500 mg Tablet 1,000 mg PO Q6H PRN Xifaxan 550 mg tablet 550 mg PO BID Patient Comments: TAKE ONE TABLET BY MOUTH TWICE A DAY. Pt. states she doesnt take furosemide 80 mg tablet 80 mg PO DAILY Patient Comments: TAKE ONE TABLET BY MOUTH EVERY DAY gabapentin 100 mg Tablet 200 mg PO HS PRN hydrocortisone [Procto-Med HC] 2.5 % cream with perineal applicator 1 applic topical PRN PRN Patient Comments: APPLY TWO TO FOUR TIMES PER DAY NEEDED metoprolol tartrate 50 mg tablet 1 tab PO TID Patient Comments: TAKE ONE TABLET BY MOUTH EVERY 8 HOURS magnesium oxide 400 mg magnesium tablet 200 mg PO BID acetaminophen 325 mg Capsule 325 mg PO ONCE PRN DS: Data Vitals/I&O Vitals and I&O: Vital Signs Temperature 97.7 F 11/01/22 09:38 Temperature Source Tympanic 11/01/22 07:26 Pulse 74 11/01/22 09:38 Pulse Rhythm Irregular 11/01/22 09:38 Respiratory Rate 18 11/01/22 09:38 Respiratory Effort Short of Breath 11/01/22 09:01 Respiratory Depth Deep 11/01/22 09:38 Blood Pressure 103/65 11/01/22 09:38 Blood Pressure Position Sitting 11/01/22 07:26 Pulse Oximetry 100 11/01/22 09:38 Oxygen Delivery Method Room Air 11/01/22 09:38 Oxygen Flow Rate 0 11/01/22 09:38 Pain Level 8 11/01/22 09:38 Intake & Output 10/31/22 11/01/2211/01/23 23:59 11:59 23:59 Weight 77.111 kg Data Completed and Pending Labs on day of discharge: Labs from last 24 hours 11/01/22 11/01/22 11/01/22 11:37 09:59 09:59 WBC 6.81 RBC 3.47 L Hgb 11.1 L Hct 33.1 L MCV 95 MCH 32.0 MCHC 33.5 RDW 16.6 H Plt Count 152 MPV 9.4 Immature Gran % 1.2 Neutrophils % 69.3 Lymphocytes % 16.0 Monocytes % 11.3 Eosinophils % 1.2 Basophils % 1.0 Nucleated RBC % 0.0 Absolute Neutrophils 4.72 Absolute Lymphocytes 1.09 L Absolute Monocytes 0.77 Absolute Eosinophils 0.08 Absolute Basophils 0.07 Sodium Potassium Chloride Carbon Dioxide Anion Gap BUN Creatinine Est GFR (CKD-EPI 2020) Glucose Calcium Ferritin Total Bilirubin AST ALT Alkaline Phosphatase Ammonia < 10 L C-Reactive Protein 2.04 H NT-Pro-B Natriuret Pep Total Protein Albumin Vitamin B12 Folate TSH Free T4 11/01/22 11/01/22 09:59 09:59 WBC RBC Hgb Hct MCV MCH MCHC RDW Plt Count MPV Immature Gran % Neutrophils % Lymphocytes % Monocytes % Eosinophils % Basophils % Nucleated RBC % Absolute Neutrophils Absolute Lymphocytes Absolute Monocytes Absolute Eosinophils Absolute Basophils Sodium 129 L Cancelled Potassium 4.7 Cancelled Chloride 99 Cancelled Carbon Dioxide 25.2 Cancelled Anion Gap 4.8 Cancelled BUN 50 H Cancelled Creatinine 1.9 H Cancelled Est GFR (CKD-EPI 2020) 30.80 Cancelled Glucose 85 Cancelled Calcium 8.7 Cancelled Ferritin 231 Total Bilirubin 2.5 H AST 33 ALT 23 Alkaline Phosphatase 184 H Ammonia C-Reactive Protein NT-Pro-B Natriuret Pep 3123 H Total Protein 5.6 L Albumin 2.7 L Vitamin B12 884 Folate 17.3 TSH 3.89 H Free T4 1.45 11/01/22 12:48 Peritoneal Body Fluid Culture - Pending 11/01/22 12:48 Peritoneal Gram Stain - Pending 11/01/22 12:48 Peritoneal Anaerobic Culture - Pending Preliminary micro results at discharge 11/01/22 12:48 Body Fluid Culture - Pending Peritoneal Gram Stain - Pending 11/01/22 12:48 Anaerobic Culture - Pending Peritoneal PFSH All Active Problems Hypotension (Acute) Lactic acidosis (Acute) 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) (Acute) Discharge planning issues (Acute) Hypomagnesemia (Acute) Acute on chronic renal failure (Acute) Abdominal pain (Acute) Shock (Acute) History of abdominal paracentesis (Acute) Tense ascites (Acute) Hypertension (Chronic ~02/2022) 03/17/22 [facility] [place] Other ascites (Acute ~01/2022) 02/09/22 [facility] [place], weekly thoracentesis PAF (paroxysmal atrial fibrillation) (Acute) 02/09/22 [facility] [place] [facility], ZIO Patch placed Chronic heart failure with preserved ejection fraction (Acute) 02/09/22 [facility] [place] Encephalopathy chronic (Chronic) Congestive heart failure (Acute 04/22/13) Pleural effusion (Acute 04/22/13) History of gallstones (Active) Depressive disorder (Active) Anxiety (Active) Adult attention deficit hyperactivity disorder (Active) Constipation (Active) Irritable colon (Active) Smoking history (Active) History of surgery (Active) Uterine ablation approxinmately 2006 Two sections. Chronic hepatitis C (Chronic) Treated and cured, relapsed 02/2021 completed 24 wks Harvoni and ribavirin per note 05/05/22 CKD (chronic kidney disease) stage 4, GFR 15-29 ml/min (Acute) Atrial fibrillation with controlled ventricular rate (Acute) Advanced hepatic cirrhosis (Chronic) Hep C & ETOH Nephrotic syndrome (Acute) Hypokalemia (Acute) Cirrhosis of liver with ascites (Acute) 11/10/21 [place]health [facility] [place] Hypokalemia due to excessive renal loss of potassium (Acute) Hydrothorax (Acute) 03/31/21 [facility] [place] [facility] 02/09/22 [facility] [place] [facility] Seasonal allergic rhinitis (Acute) 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) (Acute) Per [facility] [facility] [place] from 05/11/21 Medical History Anxiety Attention deficit hyperactivity disorder, combined type 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 History of abdominal paracentesis Irritable colon Palliative care encounter Renal failure syndrome SVT (supraventricular tachycardia) Surgical History section x2 History of ileal conduit History of thoracentesis (~04/12/22) 08/03/20,08/10/20 08/21/20,08/31/20 Hx of tubal ligation S/P abdominal paracentesis (~12/28/21) Family History Mother Hypertensive disorder, systemic arterial Cancer Cervical Father Hypertensive disorder, systemic arterial Maternal Grandfather Diabetes Maternal Grandmother Cancer Ovarian Other Cirrhosis due to hemochromatosis Social History Smoking/Tobacco Use Status: Former Tobacco Use Quit Date: 09/18/18 Smoking risk assessment performed?: Yes Alcohol Intake: former Drug use: Never Substance use type: does not use Adopted: No Caregiver/Support person: No Foster care: No Household members: family Housing: house Number of Children: 4 number of grandchildren: 2 Communication Needs: None Do you need help understanding health information?: Often current occupation: Used to work for [employer] 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
--- NOTE | 2022-11-01 13:27 | PDOC.DSDIS_ITS ---
Date of service: 11/01/22 Time of Service: 13:27 Discharge Plan Disposition Patient Disposition: Home Condition: Stable Discharge Details Reason For Visit: tense ascites Attending Provider: Hazel Lindsey Primary Care Provider: Dillon Muller Home Meds and New Rx's Prescriptions: No Action nitroglycerin [Nitrostat] 0.4 mg tablet, sublingual 0.4 mg sublingual Q5M PRN Rx Instructions: do not exceed 3 doses per episode lactulose 20 gram/30 mL solution 30 ml PO DAILY PRN Rx Instructions: to achieve 3-4 stools/day 07/28/21 cgc spironolactone 50 mg tablet 200 mg PO DAILY Hold Instructions: Resume on 03/05/22. Rx Instructions: from [facility] [place] hepat[place] 01/06/22 acetaminophen 500 mg Tablet 1,000 mg PO Q6H PRN Xifaxan 550 mg tablet 550 mg PO BID Patient Comments: TAKE ONE TABLET BY MOUTH TWICE A DAY. Pt. states she doesnt take furosemide 80 mg tablet 80 mg PO DAILY Patient Comments: TAKE ONE TABLET BY MOUTH EVERY DAY gabapentin 100 mg Tablet 200 mg PO HS PRN hydrocortisone [Procto-Med HC] 2.5 % cream with perineal applicator 1 applic topical PRN PRN Patient Comments: APPLY TWO TO FOUR TIMES PER DAY NEEDED metoprolol tartrate 50 mg tablet 1 tab PO TID Patient Comments: TAKE ONE TABLET BY MOUTH EVERY 8 HOURS magnesium oxide 400 mg magnesium tablet 200 mg PO BID acetaminophen 325 mg Capsule 325 mg PO ONCE PRN Discharge Instructions Instructions: Paracentesis (DC) Activity:: Activity as Tolerated Remove Dressings/Wound Care:: 24 hours Shower/Bathe:: 24 hours DS: Diagnosis Discharge Diagnosis (1) Tense ascites: Status: Acute Asessment and Plan: Paracentesis with approximately 7500 mL drained today Transfuse albumin Follow-up for paracentesis in 2 weeks
--- NOTE | 2022-11-01 13:29 | ROE_ITS ---
Date of service: 11/01/22 Time of Service: 13:29 Operative Note Operative Note DATE OF PROCEDURE: 11/01/22 PRE-OP DIAGNOSIS: cirrhosis with ascites POST-OP DIAGNOSIS: same PROCEDURE: Paracentesis SURGEON: Jeremías Moreno ASSISTING SURGEON: Hazel Lindsey CREDIT ANALYSIS MANAGER: Manuela Kessler ANESTHESIA TYPE: Local By Surgeon Refer to Anesthesia Record ESTIMATED BLOOD LOSS: 3 PATHOLOGY: other (fluid sent for aerobic and anaerobic culture) COMPLICATIONS: None Patient was transported to: same day Patient's condition: stable Implants: none Indications: This is a 57yo female well-known to the surgical service with recurrent tense ascites from decompensated HCV cirrhosis. She presented to the ED with increased respiratory and abdominal discomfort. Findings: straw-colored ascites Procedure Description: The patient is brought to the procedure room and placed in slight left lateral decubitus position.? Placement chosen in the left mid-hemiabdomen under ultrasound guidance.? A time-out is done.? Ultrasound is used to localize the pocket.? The area is prepped and draped in the usual sterile fashion using a ChloraPrep scrub solution.? 5 cc's of 1% Lidocaine with epinephrine is used for local anesthetization.? The abdomen is punctured and the catheter is inserted.? The guide needle was withdrawn, and the catheter advanced and connected to a collection receptacle. Between Vacutainer bottles and hand pumping, 7500mL of light straw-colored fluid was evacuated today.? The catheter is removed.? Pressure dressing is applied.?A bandage was placed. The patient tolerated the procedure well without complication. This procedure was completed under the direction and assistance of Dr. Lindsey, and June Kessler, who assisted in patient positioning and fluid mobilization.
[2022-11-01] MEDS: Normal Saline Flush 10 ML SYR IVP ×2 (13:33→14:05)
[2022-11-01] MEDS: ALBUMIN HUMAN 25 GM/100 ML BTL IVPB (13:36)
== END 2022-11-01 14:10 | disposition home or self-care (01) ==
LOC: ER 09:13 → SUR 09:38
PROVIDERS: Emergency Provider Emergency Medicine; PCP Family Medicine; Visit Provider Surgery
PROC: 0W9G3ZZ Drainage of Peritoneal Cavity, Percutaneous Approach (ICD-10-PCS; CPT 49082; principal; 2022-11-01 12:00)
DX: K74.69 Other cirrhosis of liver (principal); R18.8 Other ascites; N18.9 Chronic kidney disease, unspecified; I48.91 Unspecified atrial fibrillation; I50.9 Heart failure, unspecified
CPT/HCPCS: 49082; 36415; 80048; 80053; 96365; 99285; 82140; 82607; 82728; 82746; 83880; 84439; 84443; 85025; 86140; 87070; 87075; 87205

== ENCOUNTER 2022-11-10 11:00 | Day surgery (SDC) | payer MEDICARE, SELFPAY ==
[2022-11-10 12:00] VITALS: BP 114/79; PULSE 73; RESP 24; TEMP 36.2; O2SAT 100
--- NOTE | 2022-11-10 13:49 | PDOC.DSDIS_ITS ---
Date of service: 11/10/22 Time of Service: 13:49 Discharge Plan Disposition Patient Disposition: Home Condition: Good Discharge Details Reason For Visit: paracentesis Attending Provider: Wing Del Toro Primary Care Provider: Dillon Muller Home Meds and New Rx's Prescriptions: Continued nitroglycerin [Nitrostat] 0.4 mg tablet, sublingual 0.4 mg sublingual Q5M PRN Patient Comments: has never used Rx Instructions: do not exceed 3 doses per episode lactulose 20 gram/30 mL solution 30 ml PO DAILY PRN Rx Instructions: to achieve 3-4 stools/day 07/28/21 cgc spironolactone 50 mg tablet 200 mg PO DAILY Hold Instructions: Resume on 03/05/22. Rx Instructions: [place] [facility] [place] 01/06/22 acetaminophen 500 mg Tablet 1,000 mg PO Q6H PRN Xifaxan 550 mg tablet 550 mg PO BID Patient Comments: TAKE ONE TABLET BY MOUTH TWICE A DAY. Pt. states she doesnt take furosemide 80 mg tablet 80 mg PO DAILY Patient Comments: TAKE ONE TABLET BY MOUTH EVERY DAY gabapentin 100 mg Tablet 200 mg PO HS PRN hydrocortisone [Procto-Med HC] 2.5 % cream with perineal applicator 1 applic topical PRN PRN Patient Comments: APPLY TWO TO FOUR TIMES PER DAY NEEDED metoprolol tartrate 50 mg tablet 1 tab PO TID Patient Comments: TAKE ONE TABLET BY MOUTH EVERY 8 HOURS magnesium oxide 400 mg magnesium tablet 200 mg PO BID acetaminophen 325 mg Capsule 325 mg PO ONCE PRN Discharge Instructions Activity:: Activity as Tolerated Diet:: As Tolerated Discharge Orders Discharge Orders: Discharge Order (Routine); Ordered 11/10/22 Ordered By: Wing Del Toro DS: Diagnosis Discharge Diagnosis (1) Tense ascites: Status: Acute Asessment and Plan: Paracentesis with approximately 7100 mL drained today Transfuse albumin Follow-up for paracentesis in 2 weeks
--- NOTE | 2022-11-10 13:51 | W.PM.OP ---
Date of service: 11/10/22 Time of Service: 13:51 Operative Note Operative Note DATE OF PROCEDURE: 11/10/22 PRE-OP DIAGNOSIS: Tense ascites POST-OP DIAGNOSIS: same PROCEDURE: Therapeutic paracentesis SURGEON: Wing Del Toro ANESTHESIA TYPE: Local By Surgeon ESTIMATED BLOOD LOSS: 5 PATHOLOGY: none sent COMPLICATIONS: None Patient was transported to: same day Patient's condition: stable Procedure Description: I started by performing a limited ultrasound of the abdomen to identify appropriate site for paracentesis. Next, I selected the left lower quadrant as the ideal site for paracentesis. I then prepped and draped the abdomen. Next, using ultrasound guidance, I anesthetized the skin with 1% lidocaine with epinephrine. I used the ultrasound to guide the needle down to the peritoneal level which was also anesthetized. I then made a small incision in the skin with a 11 blade scalpel. Next, I advanced the 5 Japanese paracentesis needle and catheter through the incision and into the peritoneal cavity under the direct vision of the ultrasound. I aspirated straw-colored ascites. Next, I gently advance the catheter and remove the needle. I affixed drainage tubing, and began draining the ascites with the assistance of Vacutainer's. I drained 7000 mL of ascites. As the flow decreased, I assisted the patient to the left lateral decubitus position to improve drainage. I transitioned over to hand pumping and drained another 100 mL. I removed the catheter and used a Band-Aid to dress the wound.
[2022-11-10] MEDS: ALBUMIN HUMAN 25 GM/100 ML BTL IVPB (14:08)
[2022-11-10 14:20] VITALS: BP 109/62; PULSE 66; RESP 18; TEMP 36; O2SAT 99
== END 2022-11-10 14:40 | disposition home or self-care (01) ==
PROVIDERS: PCP Family Medicine; Visit Provider Surgery
PROC: 0W9G3ZZ Drainage of Peritoneal Cavity, Percutaneous Approach (ICD-10-PCS; CPT 49082; principal; 2022-11-10 12:45)
DX: R18.8 Other ascites (principal)
CPT/HCPCS: 49082; 96365

== ENCOUNTER 2022-11-17 12:02 | Day surgery (SDC) | payer MEDICARE, SELFPAY ==
--- NOTE | 2022-11-17 11:39 | W.PM.DSUDISC ---
Date of service: 11/17/22 Time of Service: 14:44 Discharge Plan Disposition Patient Disposition: Home Condition: Good Discharge Details Reason For Visit: Paracentesis Attending Provider: Wing Del Toro Primary Care Provider: Dillon Muller Home Meds and New Rx's Prescriptions: Continued nitroglycerin [Nitrostat] 0.4 mg tablet, sublingual 0.4 mg sublingual Q5M PRN Patient Comments: has never used Rx Instructions: do not exceed 3 doses per episode lactulose 20 gram/30 mL solution 30 ml PO DAILY PRN Rx Instructions: to achieve 3-4 stools/day 07/28/21 cgc spironolactone 50 mg tablet 200 mg PO DAILY Hold Instructions: Resume on 03/05/22. Rx Instructions: from [facility] [place] hepat[place] 01/06/22 acetaminophen 500 mg Tablet 1,000 mg PO Q6H PRN Xifaxan 550 mg tablet 550 mg PO BID Patient Comments: TAKE ONE TABLET BY MOUTH TWICE A DAY. Pt. states she doesnt take furosemide 80 mg tablet 80 mg PO DAILY Patient Comments: TAKE ONE TABLET BY MOUTH EVERY DAY gabapentin 100 mg Tablet 200 mg PO HS PRN hydrocortisone [Procto-Med HC] 2.5 % cream with perineal applicator 1 applic topical PRN PRN Patient Comments: APPLY TWO TO FOUR TIMES PER DAY NEEDED metoprolol tartrate 50 mg tablet 1 tab PO TID Patient Comments: TAKE ONE TABLET BY MOUTH EVERY 8 HOURS magnesium oxide 400 mg magnesium tablet 200 mg PO BID acetaminophen 325 mg Capsule 325 mg PO ONCE PRN Discharge Instructions Activity:: Activity as Tolerated Remove Dressings/Wound Care:: 24 hours Shower/Bathe:: 24 hours Diet:: As Tolerated DS: Diagnosis Discharge Diagnosis (1) Tense ascites: Status: Acute
--- NOTE | 2022-11-17 11:40 | W.PM.OP ---
Date of service: 11/17/22 Time of Service: 14:44 Operative Note Operative Note DATE OF PROCEDURE: 11/17/22 PRE-OP DIAGNOSIS: Ascites POST-OP DIAGNOSIS: same PROCEDURE: Paracentesis SURGEON: Wing Del Toro ANESTHESIA TYPE: Local By Surgeon Refer to Anesthesia Record ESTIMATED BLOOD LOSS: 10 PATHOLOGY: none sent COMPLICATIONS: None Patient was transported to: same day Patient's condition: stable Indications: Erin is a 57-year-old woman with cirrhosis and ascites. Findings: 7800 ml ascites Procedure Description: I started by performing a limited ultrasound of the abdomen to identify appropriate site for paracentesis. Next, I selected the left lower quadrant as the ideal site for paracentesis. I then prepped and draped the abdomen. Next, using ultrasound guidance, I anesthetized the skin with 1% lidocaine with epinephrine. I used the ultrasound to guide the needle down to the peritoneal level which was also anesthetized. I then made a small incision in the skin with a 11 blade scalpel. Next, I advanced the 5 Czech paracentesis needle and catheter through the incision and into the peritoneal cavity under the direct vision of the ultrasound. I aspirated straw-colored ascites. Next, I gently advance the catheter and remove the needle. I affixed drainage tubing, and began draining the ascites with the assistance of Vacutainer's. I drained 7200 mL of ascites. As the flow decreased, I assisted the patient to the left lateral decubitus position to improve drainage and transitioned over to hand pumping.. Once the ascites stopped flowing, I removed the catheter and used a Band-Aid to dress the wound. 7800 mL of ascites were drained in total. I recommended that Erin undergo transfusion of albumin. I think she has a good understanding of the risks and benefits, but she declined.
[2022-11-17 12:23] VITALS: BP 129/83; PULSE 87; RESP 16; TEMP 35.6; O2SAT 96
[2022-11-17 14:28] VITALS: BP 111/80; PULSE 63; RESP 16; TEMP 36.2; O2SAT 95
== END 2022-11-17 15:05 | disposition home or self-care (01) ==
LOC: SUR 12:02
PROVIDERS: PCP Family Medicine; Visit Provider Surgery
PROC: 0W9G3ZZ Drainage of Peritoneal Cavity, Percutaneous Approach (ICD-10-PCS; CPT 49082; principal; 2022-11-17 14:15)
DX: R18.8 Other ascites (principal)
CPT/HCPCS: 49083

== ENCOUNTER 2022-11-25 07:39 | Day surgery (SDC) | payer MEDICARE, SELFPAY ==
[2022-11-25 07:51] VITALS: BP 114/75; PULSE 62; RESP 18; TEMP 36.8; O2SAT 100
[2022-11-25] MEDS: Normal Saline Flush 10 ML SYR ×4 (08:19→10:45)
[2022-11-25] MEDS: Sodium Bicarbonate 50 MEQ/50 ML VIAL (09:30)
[2022-11-25] MEDS: Lidocaine 1% Pres-Free W/EPI 1/200,000 10 ML VIAL (09:30)
--- NOTE | 2022-11-25 10:05 | W.PM.OP ---
Date of service: 11/25/22 Time of Service: 10:06 Operative Note Operative Note DATE OF PROCEDURE: 11/25/22 PRE-OP DIAGNOSIS: Refractory ascites secondary to cirrhosis from hep C PROCEDURE: Paracentesis for 7 L with albumin SURGEON: Hazel Lindsey ANESTHESIA TYPE: Local By Surgeon Refer to Anesthesia Record ESTIMATED BLOOD LOSS: 1 PATHOLOGY: none sent COMPLICATIONS: None Patient was transported to: same day Patient's condition: stable Procedure Description: The patient is brought to the procedure room and placed in the supine position.?? A time-out is done.? Ultrasound is used to localize the pocket of fluid.? The area is prepped and draped in the usual sterile fashion using a ChloraPrep scrub solution.? 10 cc's of 1% Lidocaine with epinephrine is used for local anesthetization.? The abdomen is punctured and the catheter is inserted.?7 liters of light yellow fluid is evacuated today.? The catheter is removed.? Pressure dressing is applied.? The patient tolerated the procedure well without complication.
--- NOTE | 2022-11-25 10:08 | PDOC.DSDIS_ITS ---
Date of service: 11/25/22 Time of Service: 10:09 Discharge Plan Disposition Patient Disposition: Home Condition: Stable Discharge Details Reason For Visit: Paracentesis Attending Provider: Hazel Lindsey Primary Care Provider: Dillon Muller Home Meds and New Rx's Prescriptions: No Action nitroglycerin [Nitrostat] 0.4 mg tablet, sublingual 0.4 mg sublingual Q5M PRN Patient Comments: has never used Rx Instructions: do not exceed 3 doses per episode lactulose 20 gram/30 mL solution 30 ml PO DAILY PRN Rx Instructions: to achieve 3-4 stools/day 07/28/21 cgc spironolactone 50 mg tablet 200 mg PO DAILY Hold Instructions: Resume on 03/05/22. Rx Instructions: from [facility] [place] hepatology note 01/06/22 acetaminophen 500 mg Tablet 1,000 mg PO Q6H PRN Xifaxan 550 mg tablet 550 mg PO BID Patient Comments: TAKE ONE TABLET BY MOUTH TWICE A DAY. Pt. states she doesnt take furosemide 80 mg tablet 80 mg PO DAILY Patient Comments: TAKE ONE TABLET BY MOUTH EVERY DAY gabapentin 100 mg Tablet 200 mg PO HS PRN hydrocortisone [Procto-Med HC] 2.5 % cream with perineal applicator 1 applic topical PRN PRN Patient Comments: APPLY TWO TO FOUR TIMES PER DAY NEEDED metoprolol tartrate 50 mg tablet 1 tab PO TID Patient Comments: TAKE ONE TABLET BY MOUTH EVERY 8 HOURS magnesium oxide 400 mg magnesium tablet 200 mg PO BID acetaminophen 325 mg Capsule 325 mg PO ONCE PRN Discharge Instructions Additional Instructions: - Ice as needed for pain -Remove stitches in 5 to 7 days. -Remove dressing in 24 hours. May shower in 24 hours. -High-protein diet -Activity as tolerated -Follow-up next week for previously scheduled paracentesis Activity:: Activity as Tolerated Remove Dressings/Wound Care:: 24 hours Shower/Bathe:: 24 hours Diet:: High protein Discharge Orders Discharge Orders: Discharge Order (Routine); Ordered 11/25/22 Ordered By: Hazel Lindsey DS: Diagnosis Discharge Diagnosis (1) SBP (spontaneous bacterial peritonitis): Status: Suspected (2) Chronic heart failure with preserved ejection fraction: Status: Acute (3) Encephalopathy chronic: Status: Chronic (4) Advanced hepatic cirrhosis: Status: Chronic (5) Atrial fibrillation with controlled ventricular rate: Status: Acute (6) CKD (chronic kidney disease) stage 4, GFR 15-29 ml/min: Status: Acute (7) Cirrhosis of liver with ascites: Status: Acute (8) Nephrotic syndrome: Status: Acute (9) Hepatic encephalopathy: Status: Resolved (10) 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
[2022-11-25 10:15] VITALS: BP 119/80; PULSE 69; RESP 16; TEMP 36; O2SAT 100
[2022-11-25] MEDS: ALBUMIN HUMAN 25 GM/100 ML BTL IVPB ×2 (10:15→10:30)
== END 2022-11-25 10:48 | disposition home or self-care (01) ==
PROVIDERS: PCP Family Medicine; Visit Provider Surgery
PROC: 0W9G3ZZ Drainage of Peritoneal Cavity, Percutaneous Approach (ICD-10-PCS; CPT 49082; principal; 2022-11-25 08:45)
DX: R18.8 Other ascites (principal); K74.69 Other cirrhosis of liver; B19.20 Unspecified viral hepatitis C without hepatic coma
CPT/HCPCS: 49083; 96365

== ENCOUNTER 2022-12-02 09:01 | Day surgery (SDC) | payer MEDICARE, SELFPAY ==
--- NOTE | 2022-12-01 21:25 | PDOC.DSDIS_ITS ---
Date of service: 12/02/22 Time of Service: 12:04 Discharge Plan Disposition Condition: Fair Discharge Details Reason For Visit: paracentesis Attending Provider: Wing Del Toro Primary Care Provider: Dillon Muller [place] Meds and New Rx's Prescriptions: Continued nitroglycerin [Nitrostat] 0.4 mg tablet, sublingual 0.4 mg sublingual Q5M PRN Patient Comments: has never used Rx Instructions: do not exceed 3 doses per episode lactulose 20 gram/30 mL solution 30 ml PO DAILY PRN Rx Instructions: to achieve 3-4 stools/day 07/28/21 cgc spironolactone 50 mg tablet 200 mg PO DAILY Hold Instructions: Resume on 03/05/22. Rx Instructions: from [facility] [place] 01/06/22 acetaminophen 500 mg Tablet 1,000 mg PO Q6H PRN Xifaxan 550 mg tablet 550 mg PO BID Patient Comments: TAKE ONE TABLET BY MOUTH TWICE A DAY. Pt. states she doesnt take furosemide 80 mg tablet 80 mg PO DAILY Patient Comments: TAKE ONE TABLET BY MOUTH EVERY DAY gabapentin 100 mg Tablet 200 mg PO HS PRN hydrocortisone [Procto-Med HC] 2.5 % cream with perineal applicator 1 applic topical PRN PRN Patient Comments: APPLY TWO TO FOUR TIMES PER DAY NEEDED metoprolol tartrate 50 mg tablet 1 tab PO TID Patient Comments: TAKE ONE TABLET BY MOUTH EVERY 8 HOURS magnesium oxide 400 mg magnesium tablet 200 mg PO BID acetaminophen 325 mg Capsule 325 mg PO ONCE PRN Discharge Instructions Activity:: Activity as Tolerated Activity:: Activity as Tolerated DS: Diagnosis Discharge Diagnosis (1) Tense ascites: Status: Acute Asessment and Plan: 7200 mL of ascites drained today, follow-up next week for paracentesis.
--- NOTE | 2022-12-01 21:28 | ROE_ITS ---
Date of service: 12/02/22 Time of Service: 12:04 Operative Note Operative Note DATE OF PROCEDURE: 12/02/22 PRE-OP DIAGNOSIS: Ascites POST-OP DIAGNOSIS: same PROCEDURE: Paracentesis SURGEON: Wing Del Toro ANESTHESIA TYPE: Local By Surgeon ESTIMATED BLOOD LOSS: 5 COMPLICATIONS: None Patient was transported to: same day Patient's condition: stable Indications: Erin is a 57-year-old woman with cirrhosis and abdominal ascites. She is here for routine paracentesis. Findings: 7200 ml ascites Procedure Description: I started by performing a limited ultrasound of the abdomen to identify appropriate site for paracentesis. Next, I selected the left lower quadrant as the ideal site for paracentesis. I then prepped and draped the abdomen. Next, using ultrasound guidance, I anesthetized the skin with 1% lidocaine with epinephrine. I used the ultrasound to guide the needle down to the peritoneal level which was also anesthetized. I then made a small incision in the skin with a 11 blade scalpel. Next, I advanced the 5 [place] paracentesis needle and catheter through the incision and into the peritoneal cavity under the direct vision of the ultrasound. I aspirated straw-colored ascites. Next, I gently advance the catheter and remove the needle. I affixed drainage tubing, and began draining the ascites with the assistance of Vacutainer's. As the flow of the ascites slowed, I transitioned over to hand pumping. In total I drained 7200 milliliters of ascites.
[2022-12-02 09:32] LABS: Abs Immature Grans 0.02 10^3/uL (0.0-0.06); Absolute Basophil Count 0.07 10^3/uL (0.0-0.2); Absolute Eosinophil Count 0.18 10^3/uL (0.0-0.7); Absolute Lymphocyte Count 1.04 10^3/uL (1.2-3.4); Absolute Neutrophil Count 3.06 10^3/uL (1.2-6.7); Basophils % 1.4; Eosinophils % 3.6; HCT 36.1 % (36.0-46.0); HGB 12.3 g/dL (11.2-15.7); Immature Grans % 0.4; Lymphocytes % 20.9; MCH 32.7 pg (27.0-33.0); MCHC 34.1 % (32.0-36.0); MCV 96 fL (80-95); Monocytes % 12.1; Neutrophils % 61.6; Platelet Count 137 10^3/uL (130-400); RBC 3.76 10^6/uL (3.93-5.22); RDW 16.3 % (11.7-14.6); RDW-SD 57.8 fL; WBC 4.97 10^3/uL (4.4-10.8)
[2022-12-02 09:46] LABS: Ammonia 114 umol/L (11-32); INR 1.2 (0.9-1.1); Prothrombin Time 12.1 sec (9.3-11.0)
[2022-12-02 10:04] VITALS: BP 117/81; PULSE 74; RESP 16; TEMP 36.4; O2SAT 99
[2022-12-02 10:08] LABS: ALT 34 U/L (14-59); AST 33 U/L (15-37); Alkaline Phosphatase 169 U/L (46-116); Anion Gap 6.1 mmol/L (3-11); BUN 38 mg/dL (7-18); Bilirubin, Total 1.9 mg/dL (0.2-1.0); CO2 25.9 mmol/L (21.0-32.0); CREATININE 1.8 mg/dL (0.55-1.02); Calcium 8.6 mg/dL (8.5-10.1); Chloride 101 mmol/L (98-107); Estimated GFR 32.86 (mL/min/1.73m2); Glucose 137 mg/dL (74-106); Magnesium 1.8 mg/dL (1.8-2.4); NT-proBNP 2136 pg/mL (<300); Potassium 3.8 mmol/L (3.5-5.1); Sodium 133 mmol/L (136-145)
[2022-12-02 11:58] VITALS: BP 121/80; PULSE 79; RESP 18; TEMP 36.4; O2SAT 97
[2022-12-02] MEDS: Normal Saline Flush 10 ML SYR IV (12:17)
== END 2022-12-02 12:58 | disposition home or self-care (01) ==
PROVIDERS: PCP Family Medicine; Visit Provider Surgery
PROC: 0W9G3ZZ Drainage of Peritoneal Cavity, Percutaneous Approach (ICD-10-PCS; CPT 49082; principal; 2022-12-02 11:15)
DX: R18.8 Other ascites (principal)
CPT/HCPCS: 49083; 80053; 82140; 83735; 83880; 85025; 85610

== ENCOUNTER 2022-12-09 09:47 | Day surgery (SDC) | payer MEDICARE, SELFPAY ==
[2022-12-09 10:28] VITALS: BP 122/89; PULSE 75; RESP 20; TEMP 36.1; O2SAT 99
[2022-12-09] MEDS: Sodium Bicarbonate 50 MEQ/50 ML VIAL (11:12)
[2022-12-09] MEDS: Lidocaine 1% Pres-Free W/EPI 1/200,000 10 ML VIAL (11:12)
[2022-12-09 11:35] VITALS: BP 126/72; PULSE 75; RESP 20; TEMP 36.2; O2SAT 100
--- NOTE | 2022-12-09 12:05 | W.PM.DSUDISC ---
Date of service: 12/09/22 Time of Service: 12:05 Discharge Plan Disposition Patient Disposition: Home Condition: Good Discharge Details Reason For Visit: Paracentesis Attending Provider: Hazel Lindsey Primary Care Provider: Dillon Muller Home Meds and New Rx's Prescriptions: No Action nitroglycerin [Nitrostat] 0.4 mg tablet, sublingual 0.4 mg sublingual Q5M PRN Patient Comments: has never used Rx Instructions: do not exceed 3 doses per episode lactulose 20 gram/30 mL solution 30 ml PO DAILY PRN Rx Instructions: to achieve 3-4 stools/day 07/28/21 cgc spironolactone 50 mg tablet 200 mg PO DAILY Hold Instructions: Resume on 03/05/22. Rx Instructions: from [facility] [place] note 01/06/22 acetaminophen 500 mg Tablet 1,000 mg PO Q6H PRN Xifaxan 550 mg tablet 550 mg PO BID Patient Comments: TAKE ONE TABLET BY MOUTH TWICE A DAY. Pt. states she doesnt take furosemide 80 mg tablet 80 mg PO DAILY Patient Comments: TAKE ONE TABLET BY MOUTH EVERY DAY gabapentin 100 mg Tablet 200 mg PO HS PRN hydrocortisone [Procto-Med HC] 2.5 % cream with perineal applicator 1 applic topical PRN PRN Patient Comments: APPLY TWO TO FOUR TIMES PER DAY NEEDED metoprolol tartrate 50 mg tablet 1 tab PO TID Patient Comments: TAKE ONE TABLET BY MOUTH EVERY 8 HOURS magnesium oxide 400 mg magnesium tablet 200 mg PO BID acetaminophen 325 mg Capsule 325 mg PO ONCE PRN Discharge Instructions Additional Instructions: - Follow-up next week for paracentesis as previously scheduled - I will contact you on Monday with more information about the procedure - Activity:: Activity as Tolerated Remove Dressings/Wound Care:: 24 hours Shower/Bathe:: 24 hours Diet:: high proteins Discharge Orders Discharge Orders: Discharge Order (Routine); Ordered 12/09/22 Ordered By: Hazel Lindsey
--- NOTE | 2022-12-09 23:53 | W.PM.OP ---
Date of service: 12/09/22 Time of Service: 12:00 Operative Note Operative Note DATE OF PROCEDURE: 12/09/22 PRE-OP DIAGNOSIS: decompensated cirrhosis POST-OP DIAGNOSIS: same PROCEDURE: paracentisis SURGEON: Hazel Lindsey ANESTHESIA TYPE: Local By Surgeon Refer to Anesthesia Record ESTIMATED BLOOD LOSS: 1 PATHOLOGY: none sent COMPLICATIONS: None Patient was transported to: same day Patient's condition: stable Procedure Description: The patient is brought to the procedure room and placed in the supine position.?? A time-out is done.? Ultrasound is used to localize the pocket of fluid.? The area is prepped and draped in the usual sterile fashion using a ChloraPrep scrub solution.? 10 cc's of 1% Lidocaine with epinephrine is used for local anesthetization.? The abdomen is punctured and the catheter is inserted.?7 liters of light yellow fluid is evacuated today.? The catheter is removed.? Pressure dressing is applied.? The patient tolerated the procedure well without complication.
== END 2022-12-09 12:23 | disposition home or self-care (01) ==
PROVIDERS: PCP Family Medicine; Visit Provider Surgery
PROC: 0W9G3ZZ Drainage of Peritoneal Cavity, Percutaneous Approach (ICD-10-PCS; CPT 49082; principal; 2022-12-09 11:15)
DX: R18.8 Other ascites (principal); K74.60 Unspecified cirrhosis of liver
CPT/HCPCS: 49083; 96365

== ENCOUNTER 2022-12-21 01:38 | Outpatient (CLI) | payer MEDICARE, SELFPAY ==
--- NOTE | 2022-12-21 15:01 | DI.US_ITS ---
APPROVED REPORT EXAM: Comprehensive 2D, Doppler, and color-flow Echocardiogram Patient Location: Out-Patient [employer] Estate Rental Agent: Karon Ramires RDCS (AE) Indications: Chronic heart failure with preserved EF Other Information Study Quality: Fair. Technically limited study due to body habitus, inability to position patient exa m done supine. Conclusion Borderline dilated left ventricle. Ejection fraction is 50 to 55%. There are no segmental wall angeles on abnormalities Right ventricle is grossly normal in size and systolic function Left atrium is mildly dilated. Right atrial size is normal Trileaflet aortic valve without stenosis or regurgitation Thickened mitral leaflets with mild to moderate mitral regurgitation Normal tricuspid valve with moderate regurgitation. Estimated right ventricular systolic pressure is 22 mmHg Patient was in atrial flutter with a controlled rate throughout the study Wall motion Left Ventricle Left ventricle is borderline dilated. Left ventricular systolic function is borderline. There is norm al left ventricular wall thickness. There are no segmental wall motion abnormalities There is no vent ricular septal defect visualized. LVEF is 50-55%. Right Ventricle Right ventricle is grossly normal in size. Right ventricular systolic function is grossly normal. The RVSP is 22.3_ mmHg. Atria Left atrium is mildly dilated. The right atrium size is normal. The interatrial septum is intact with no evidence for an atrial septal defect. Aortic Valve The aortic valve is normal in structure. Aortic valve is trileaflet. There is no aortic valvular sten osis. No aortic regurgitation is present. Mitral Valve Mitral valve leaflets are mild to moderately thickened. No evidence of mitral valve stenosis. Mild to moderate mitral regurgitation. Tricuspid Valve The tricuspid valve is normal in structure. There is no tricuspid valve stenosis. Moderate tricuspid regurgitation. Pulmonic Valve The pulmonary valve is normal in structure. There is no pulmonic valvular stenosis. Trace pulmonic re gurgitation. Great Vessels The aortic root is normal in size. The ascending aorta is normal in size. Aortic arch is not well vis ualized. IVC is normal in size and collapses >50% with inspiration. Pericardium There is no pericardial effusion. 2D Dimensions IVSD d PLAX 0.84 cm F: 0.6-1.0 LV Vol A2C d MOD 97.2 mL LVPW d PLAX 0.87 cm F: 0.6 - 1.0 LV Vol A4C d MOD 135.0 mL LVID d PLAX 5.51 cm F: 3.8 - 5.2 LA vol/ BSA A2C s A-L 34.2 mL/m2 LVDs 4.20 cm F: 2.2 - 3.5 LA vol/ BSA A4C s A-L 37.3 mL/m2 Ao Root d 3.47 cm F: 2.7 - 3.3 LA Vol/ BSA Biplane s A-L 35.8 mL/m2 RA Area A4C 15.72 cm2 LA Area A4C s MOD 22.32 cm2 RA Vol/ BSA A4C s A-L 22.3 mL/m2 LA Area A2C s MOD 21.43 cm2 Ao Asc Diam d 3.02 cm F: 2.3 - 3.1 LV EF A4C MOD 50.4 % LV EF Teichholz 46.5 % LV EF A2C MOD 49.5 % LVEF (Aguero's) 52.10 % F: 54 - 74 LV EF Biplane MOD 52.1 % LV Volume 92.35 mL F: 46 - 106 SV 62.89 mL LV Volume Index 48.86 mL/m2 F: 29 - 61 SV Index 33.33 mL/m2 LV Vol Biplane MOD 120.7 mL FS 23.45 % M-Mode TAPSE 2.40 cm (M/F) >1.7 LV Diastology MV E' medial 0.143 (>0.07 m/s) MV E Vmax 1.06 (0.4-1.3 m/s) LV E/e MED 7.35 (<14) MV E' lateral 0.163 (>0.1 m/s) LV E/e LAT 6.45 (<14) MV E/E' medial 7.36 MV E/E' lateral 6.48 Aortic Valve LVOT Area 3.14 cm2 AoV Area Vmax 2.68 cm2 LVOT Vmax 0.94 m/s AoV Area/ BSA (Vmax) 1.42 cm2/m2 LVOT Mean Brian. 0.63 m/s JAI Mean Brian. 2.52 cm2 LVOT Peak Grad 3.6 mmHg JAI Mean Brian. Index 1.33 cm2/m2 LVOT Mean Grad 1.9 mmHg LVOT VTI 0.171 m LVOT Diam s 2.00 cm AoV Vmax 1.11 m/s Velocity Ratio 0.85 AoV Mean Brian. 0.79 m/s AoV Peak Grad 4.9 mmHg LVOT SV 53.83 mL AoV Mean Grad 2.8 mmHg AoV VTI 0.215 m AoV Area VTI 2.50 cm2 AoV Area/ BSA (VTI) 1.33 cm/m2 Mitral Valve MV DT 199 (160-240 msec) MV PHT 58 msec MV Area PHT 3.81 cm2 MV VTI 0.227 m MV Area VTI 2.37 (4.0-6.0 cm2) Pulmonary Valve PV Vmax 0.99 (0.5-1.5 m/s) RVOT Peak Gr. 2.17 mmHg PV Peak Grad 3.9 mmHg RVOT Mean Gr. 1.25 mmHg PV Mean Grad 1.9 mmHg RVOT VTI 0.158 m PV VTI 0.173 m RVOT Vmax 0.74 m/s Tricuspid Valve TR Peak Grad 19.2 mmHg TR Vmax 2.20 m/s RA Pressure 3.00 mmHg RVSP (TR) 22.3 mmHg
== END 2022-12-21 01:58 ==
PROVIDERS: PCP Family Medicine; Visit Provider Nurse Practitioner Adult Health
DX: I50.32 Chronic diastolic (congestive) heart failure (principal)
CPT/HCPCS: 93306

== ENCOUNTER 2023-05-09 10:05 | Emergency (ER) | payer MEDICARE, MEDICAID, SELFPAY ==
[2023-05-09 10:19] VITALS: BP 98/66; PULSE 80; RESP 20; TEMP 36.8; O2SAT 91
--- NOTE | 2023-05-09 10:30 | RT.EKG_ITS ---
APPROVED REPORT Exam: Resting ECG Reason for Exam: SOB Patient Location: E HR:78 bpm ECG Measurements Heart Rate 78 AXIS DE [id number] P [id number] QRSd 102 QRS 92 QT 398 T 6 QTc 447 Conclusion Atrial flutter/fibrillation...A-rate 469, multiple Ps Low voltage, extremity leads...all extremity leads <0.5mV afib, normal axis
[2023-05-09 10:46] VITALS: BP 111/79; PULSE 71
[2023-05-09 10:49] VITALS: RESP 20
--- NOTE | 2023-05-09 10:51 | ED.GENADUL_ITS ---
Discharge Plan Disposition Patient Disposition: Home Condition: Stable Discharge Details Chief Complaint: SOB Clinical Impression: Pleural effusion Primary Care Provider: Dillon Muller ED Provider: Jesus Nettles Home Meds and New Rx's Prescriptions: No Action acetaminophen 325 mg capsule 650 mg PO .BID PRN metoprolol tartrate 50 mg tablet 50 mg PO BID nitroglycerin [Nitrostat] 0.4 mg tablet, sublingual 0.4 mg sublingual Q5M PRN Patient Comments: has never used Rx Instructions: do not exceed 3 doses per episode lactulose 20 gram/30 mL solution 30 ml PO DAILY PRN Rx Instructions: to achieve 3-4 stools/day 07/28/21 cgc hydrocortisone 2.5 % cream with perineal applicator See Rx Instructions .ROUTE .COMPLEX Qty: 30 4RF Dose Instruction: APPLY RECTALLY TWO TO FOUR TIMES PER DAY NEEDED Rx Instructions: APPLY RECTALLY TWO TO FOUR TIMES PER DAY NEEDED spironolactone 50 mg tablet 100 mg PO DAILY Hold Instructions: Resume on 03/05/22. Rx Instructions: from [facility] [place] hepatology note 01/06/22 acetaminophen 500 mg Tablet 1,000 mg PO Q6H PRN Xifaxan 550 mg tablet 550 mg PO BID Patient Comments: TAKE ONE TABLET BY MOUTH TWICE A DAY. Pt. states she doesnt take furosemide 80 mg tablet 80 mg PO DAILY Patient Comments: TAKE ONE TABLET BY MOUTH EVERY DAY magnesium oxide 400 mg magnesium tablet 200 mg PO BID Discharge Instructions Instructions: Pleural Effusion (ED) Additional Instructions: Please follow-up closely with surgical team as needed, please return to the emergency department for any worsening symptom Medical Decision Making 57-year-old female history of hepatitis, cirrhosis, chronic ascites and pleural effusions, with left-sided chest drain, presents with shortness of breath over the past several weeks to months, wanting to see if she has any worsening fluid accumulating in the pleural space, does not want labs, is amenable to EKG and x- ray. Patient is following up in [place] for blood work tomorrow. Consider worsening effusion versus pneumonia versus viral syndrome versus less likely ACS PE or aortic pathology, must also consider pneumothorax, no evidence of spontaneous bacterial peritonitis. Will obtain EKG and x-ray at patient's request. Low suspicion for need for thoracentesis given vital signs, oxygen 97% currently on room air 11:40 evidence of large right-sided pleural effusion, given symptomatic shortness of breath and borderline hypoxia on arrival will discuss therapeutic thoracentesis with patient. Have touch base with patient's primary surgical team who is okay with us performing procedure at bedside. Pending successful drainage of pleural effusion patient could potentially be discharged home with close follow-up within the next week 11: 46 patient refusing blood work and refusing thoracentesis at this time. Patient would like to follow-up with surgical team in the coming weeks as needed. Given home care instructions and return precautions. HPI General Date/Time Provider Initiated Documentation: 05/09/23 10:37 . HPI Narrative: 57-year-old female history of hepatitis, cirrhosis, ascites, presents with acute on chronic shortness of breath over the last several weeks Related Data Home Medications Medication Instructions Recorded Confirmed nitroglycerin 0.4 mg sublingual 0.4 mg sublingual Q5M PRN 04/05/21 03/07/23 tablet (Nitrostat) lactulose 20 gram/30 mL oral 30 ml PO DAILY PRN 07/29/21 03/07/23 solution acetaminophen 500 mg tablet 1,000 mg PO Q6H PRN 10/05/21 03/07/23 rifaximin 550 mg tablet (Xifaxan) 550 mg PO BID 11/16/21 03/07/23 furosemide 80 mg tablet 80 mg PO DAILY 12/24/21 03/07/23 magnesium oxide 200 mg PO BID 05/31/22 03/07/23 acetaminophen 325 mg capsule 650 mg PO .BID PRN 12/19/22 03/07/23 metoprolol tartrate 50 mg tablet 50 mg PO BID 12/19/22 03/07/23 hydrocortisone 2.5 % topical cream See Rx Instructions .Route 01/23/23 03/07/23 with perineal applicator .COMPLEX #30 grams spironolactone 50 mg tablet 100 mg PO DAILY 03/07/23 03/07/23 Previous Rx's Medication Instructions Recorded hydrocortisone 2.5 % topical cream See Rx Instructions .Route 01/23/23 with perineal applicator .COMPLEX #30 grams Allergies Allergy/AdvReac Type Severity Reaction Status Date / Time amphetamine aspartate Allergy Severe Facial Verified 03/07/23 15:00 [From Adderall] Swelling, Blisters, Tongue Swelling, Rash, amphetamine sulfate Allergy Severe Facial Verified 03/07/23 15:00 [From Adderall] Swelling, Blisters, Tongue Swelling, Rash, dextroamphetamine saccharate Allergy Severe Facial Verified 03/07/23 15:00 [From Adderall] Swelling, Blisters, Tongue Swelling, Rash, dextroamphetamine sulfate Allergy Severe Facial Verified 03/07/23 15:00 [From Adderall] Swelling, Blisters, Tongue Swelling, Rash, Penicillins Allergy Intermediate Hives, Verified 03/07/23 15:00 Rash, Tongue Swelling codeine AdvReac Mild Constipatio Verified 03/07/23 15:00 n General Stated Complaint: SOB JOE: 3 Review of Systems Narrative: Review of Systems Constitutional: negative Eyes: negative ENT: negative Cardiovascular: negative Respiratory: Shortness of breath Gastrointestinal: negative : negative Musculoskeletal: negative Skin: negative Neurologic: negative Psych: negative PFSH All Active Problems (Updated 05/09/23 @ 11:47 by Jesus Nettles MD) Pleural effusion (Acute) Ascites due to alcoholic cirrhosis (Acute) Muscle tension pain (Acute) 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 Lindsey Hypomagnesemia (Acute) Acute on chronic renal failure (Acute) Tense ascites (Acute) Hypertension (Chronic ~02/2022) 03/17/22 [facility] [place] Cardiology Other ascites (Acute ~01/2022) 02/09/22 [facility] GI, weekly thoracentesis PAF (paroxysmal atrial fibrillation) (Acute) 02/09/22 [facility] [place] Cardiology, ZIO Patch placed Chronic heart failure with preserved ejection fraction (Acute) 02/09/22 [facility] [place] Cardiology Encephalopathy chronic (Chronic) Hepatic - K76.82 Congestive heart failure (Acute 04/22/13) Pleural effusion (Acute 04/22/13) History of gallstones (Active) Depressive disorder (Active) Anxiety (Active) Adult attention deficit hyperactivity disorder (Active) Constipation (Active) Irritable colon (Active) Smoking history (Active) History of surgery (Active) Uterine ablation approxinmately 2006 Two sections. Chronic hepatitis C (Chronic) Treated and cured, relapsed 02/2021 completed 24 wks Harvoni and ribavirin per note 05/05/22 CKD (chronic kidney disease) stage 4, GFR 15-29 ml/min (Acute) Atrial fibrillation with controlled ventricular rate (Acute) Advanced hepatic cirrhosis (Chronic) Hep C & ETOH Nephrotic syndrome (Acute) Hypokalemia (Acute) Cirrhosis of liver with ascites (Acute) 11/10/21 Telehealth [facility] [place] [facility]astro Hypokalemia due to excessive renal loss of potassium (Acute) Hydrothorax (Acute) 03/31/21 [facility] [place] [facility] 02/09/22 [facility] [place] GI Seasonal allergic rhinitis (Acute) 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) (Acute) Per [facility] [place] Gastro note from 05/11/21 Medical History (Updated 05/09/23 @ 11:47 by Jesus Nettles MD) Anxiety Attention deficit hyperactivity disorder, combined type 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 History of abdominal paracentesis Irritable colon Lactic acidosis Palliative care encounter Renal failure syndrome SBP (spontaneous bacterial peritonitis) Shock SVT (supraventricular tachycardia) Surgical History section x2 History of ileal conduit History of thoracentesis (~12/28/21) 08/03/20,08/10/20 08/21/20,08/31/20 Hx of tubal ligation S/P abdominal paracentesis (~12/28/21) Family History Mother Hypertensive disorder, systemic arterial Cancer Cervical Father Hypertensive disorder, systemic arterial Maternal Grandfather Diabetes Maternal Grandmother Cancer Ovarian Other Cirrhosis due to hemochromatosis Social History Smoking/Tobacco Use Status: Former Tobacco Use Quit Date: 09/18/18 Smoking risk assessment performed?: Yes Alcohol Intake: former Drug use: Never Substance use type: does not use Adopted: No Caregiver/Support person: No Foster care: No Household members: family Housing: house Number of Children: 4 number of grandchildren: 2 Communication Needs: None Do you need help understanding health information?: Often current occupation: Used to work for [employer] Current gender identity: female What is your relationship status?: How often do you talk on the phone with friends or family?: three or more times per week Panel score (0-1 are the most socially isolated patients): 2 What type of physical activity do you participate in: none Seatbelt use: always Drive intox or ride w/intox class 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 Working smoke detector in home: Yes Fire extinguisher in home: Yes Carbon monox detector in home: Yes Do you feel safe at home: Yes Do you feel safe in your relationship?: Yes Exam Narrative Exam Narrative: Physical Examination General: alert, awake, cooperative, resting comfortably, no acute distress HEENT: normocephalic, atraumatic; PERRL, EOM intact, conjunctiva normal; no nasal discharge; moist mucous membranes, oral and pharyngeal mucosa normal, tolerating secretions Neck: supple, trachea midline; full ROM Chest: normal to inspection Respiratory: normal respiratory effort, speaking in full sentences, clear to auscultation, no wheezing, rales or rhonchi Cardiac: regular rate, regular rhythm, S1S2 intact, no murmurs rubs or gallops GI: abdomen soft, non-tender, ascites with fluid wave, nontense nontender no guarding or rebound Skin: no lesions, rashes or trauma appreciated Neuro: AAOx3, normal speech, moving all extremities Psych: Appropriate mood and affect Course Vital Signs Vital signs: Vital Signs Temperature 36.8 C 05/09/23 10:19 Pulse 80 05/09/23 10:19 Respiratory Rate 20 05/09/23 10:19 Blood Pressure 98/66 L 05/09/23 10:19 Pulse Oximetry 91 L 05/09/23 10:19 Temperature 36.8 C 05/09/23 10:19 Pulse 71 05/09/23 10:46 Respiratory Rate 20 05/09/23 10:49 Respiratory Effort Short of Breath 05/09/23 10:49 Respiratory Depth Normal 05/09/23 10:49 Respiratory Pattern Normal 05/09/23 10:49 Blood Pressure 111/79 05/09/23 10:46 Blood Pressure Mean 85 05/09/23 10:46 Blood Pressure Position Sitting 05/09/23 10:19 Pulse Oximetry 91 L 05/09/23 10:19 Oxygen Delivery Method Room Air 05/09/23 10:19 Oxygen Flow Rate 0 05/09/23 10:19 Pain Level 0 05/09/23 10:19
--- NOTE | 2023-05-09 11:29 | DI.RAD_ITS ---
Exam(s) XR CHEST 2V PA LATERAL EXAM: XR CHEST 2V PA LATERAL CLINICAL HISTORY: chronic ascites and pleural effusions. TECHNIQUE: 2D digital imaging was performed. COMPARISON: CR XR ABD FLAT UPRIGHT PA CHEST from 06/20/[address] ABDOMEN PELVIS WO from 10/20/2022 FINDINGS: 2 views: Distal tip of the left PICC line is at the right atrium Heart size is normal. The mediastinum is not widened. There is a large right-sided pleural effusion which is increased in size from 06/20/2022 there is a r ound nodular density in the right parahilar region measuring approximately 4 x 4 cm. IMPRESSION: Further increase in size of the right pleural effusion. This is now a large right pleural effusion. Round nodular lung density in the right infrahilar region noted. Left lung is clear and there is no pleural fluid on the left side. DATA REPOSITORY: RADIATION DOSE DELIVERED:
--- NOTE | 2023-05-09 12:16 | NUR.NOTE ---
Referral faxed to [facility] Surgery for right pleural effusion. Within [address] Buchanan. Nursing Note:
== END 2023-05-09 11:53 | disposition home or self-care (01) ==
PROVIDERS: Emergency Provider Emergency Medicine; PCP Family Medicine
DX: R18.8 Other ascites (principal); K74.69 Other cirrhosis of liver; B19.9 Unspecified viral hepatitis without hepatic coma; I48.91 Unspecified atrial fibrillation; I48.92 Unspecified atrial flutter; I13.0 Hypertensive heart and chronic kidney disease with heart failure and stage 1 through stage 4 chronic kidney disease, or unspecified chronic kidney disease; I50.9 Heart failure, unspecified; N18.4 Chronic kidney disease, stage 4 (severe); Z79.899 Other long term (current) drug therapy
CPT/HCPCS: 80053; 86900; 86901; 93005; 99284; 71046; 85025; 85610; 85730; 93010; 99283

== ENCOUNTER 2023-05-29 11:19 | Emergency (ER) | payer MEDICARE, MEDICAID, SELFPAY ==
--- NOTE | 2023-05-29 11:15 | RT.EKG_ITS ---
APPROVED REPORT Exam: Resting ECG Reason for Exam: chest pain Patient Location: E HR:70 bpm ECG Measurements Heart Rate 70 AXIS SC [id number] P [id number] QRSd 98 QRS 85 QT 431 T [id number] QTc 467 Conclusion Atrial fibrillation...V-rate 56- 89, irreg A-activity Ventricular premature complex...V complex w/ short R-R interval Aberrant complex...small R-R variation, aberrant QRS Low voltage, extremity and precordial leads...extremity<0.5mV, precordial<1.0mV Physician: no stemi, unchanged
[2023-05-29 11:22] VITALS: BP 108/71; PULSE 66; RESP 18; TEMP 36.2; O2SAT 100
--- NOTE | 2023-05-29 11:45 | DI.RAD_ITS ---
Exam(s) XR PORTABLE CHEST AP EXAM: XR PORTABLE CHEST AP CLINICAL HISTORY: cough, SOB, r/o pneumonia. TECHNIQUE: 2D digital imaging was performed. COMPARISON: CT CT ABDOMEN PELVIS WO from 10/20/2022 CR XR CHEST 2V PA LATERAL from 05/09/2023 FINDINGS: Single AP portable view. Heart size is upper normal. The mediastinum is not widened. Large right pleural effusion again noted, unchanged. Also right parahilar roundish density or mass a gain noted. This may be cavitated Opposite-left lung is clear. Left PICC line is noted with distal tip in lower SVC. IMPRESSION: Persistent large right pleural effusion and right nodular infiltrate which may exhibits some cavitati on on present study. DATA REPOSITORY: RADIATION DOSE DELIVERED:
--- NOTE | 2023-05-29 12:17 | W.ED.GENAD ---
Discharge Plan Disposition Patient Disposition: Home Condition: Good Discharge Details Clinical Impression: URI (upper respiratory infection) Primary Care Provider: Dillon Muller ED Provider: Emil Costa Home Meds and New Rx's Prescriptions: New azithromycin 250 mg tablet See Rx Instructions .ROUTE .COMPLEX Qty: 6 0RF Rx Instructions: For 250 mg dose pack: take 500 mg today (day 1), then 250 mg for 4 days (days 2-5) No Action acetaminophen 325 mg capsule 650 mg PO .BID PRN nitroglycerin [Nitrostat] 0.4 mg tablet, sublingual 0.4 mg sublingual Q5M PRN Patient Comments: has never used Rx Instructions: do not exceed 3 doses per episode lactulose 20 gram/30 mL solution 30 ml PO DAILY PRN Rx Instructions: to achieve 3-4 stools/day 07/28/21 cgc hydrocortisone 2.5 % cream with perineal applicator See Rx Instructions .ROUTE .COMPLEX Qty: 30 4RF Dose Instruction: APPLY RECTALLY TWO TO FOUR TIMES PER DAY NEEDED Rx Instructions: APPLY RECTALLY TWO TO FOUR TIMES PER DAY NEEDED torsemide 20 mg tablet 100 mg PO DAILY Rx Instructions: per note dated 05/17/23 [facility] – [place] [facility] cc metoprolol tartrate 50 mg tablet 50 mg PO TID gabapentin [Neurontin] 100 mg capsule 100 mg PO TID PRN Rx Instructions: per note dated 05/17/23 cc spironolactone 50 mg tablet 100 mg PO BID Hold Instructions: Resume on 03/05/22. Rx Instructions: from [facility] – [place] hepatology note 05/17/23 cc magnesium oxide 400 mg magnesium tablet 400 mg PO DAILY acetaminophen 500 mg Tablet 1,000 mg PO Q6H PRN Xifaxan 550 mg tablet 550 mg PO BID Patient Comments: TAKE ONE TABLET BY MOUTH TWICE A DAY. Pt. states she doesnt take Discharge Instructions Instructions: Upper Respiratory Infection (ED) Additional Instructions: At this time your x-ray results do show your chronic effusion but do not show evidence of new pneumonia. However because of your high risk for potential pneumonia with your chronic effusion and lung disease we will start you on a brief course of an antibiotic. Please take this as directed. Is been sent to your pharmacy on file. If you notice any worsening of your symptoms, or any new symptoms such as vomiting, diarrhea, fever, chills, shortness of breath, chest pain, numbness, weakness, or fainting , please return immediately to the emergency department for reevaluation. Please follow up with your primary care provider as soon as possible for reassessment and reevaluation. As always, it was a pleasure participating in your medical care today. Referrals: Dillon Muller DO [Primary Care Provider] - Medical Decision Making 57-year-old female no past medical history of a chronic right-sided pleural effusion, chronic ascites, congestive heart failure, atrial fibrillation, chronic kidney disease, who presents today for runny nose, congestion mild cough. Patient gets her pleural effusion regularly drained. Last time was about 2 weeks ago. She states that about 24 to 48 hours ago she developed runny nose congestion mild cough. She does have small children at home who go to daycare who have had similar symptoms. She denies any fever. No other complaints at this time. No other modifying factors. She denies any new chest pain. She denies any significant shortness of breath. Exam demonstrates well-appearing female, no significant hypoxemia. Patient is 99% on room air. Lungs demonstrate mild rhonchi scattered throughout. Chest x-ray shows chronic pleural effusion, unchanged. COVID and flu test is negative. Patient remained stable. Of note x-ray report does note PICC line, however this is not a PICC line as it transitions to the left lateral abdominal wall. It is a drain for her chronic ascites. Patient is otherwise stable. Due to her medical comorbidities, we will start her on a brief course of antibiotics to prevent pneumonia with her early symptoms of runny nose and congestion which could transition to pneumonia from bronchitis. Discussed red flags which to return. I have extensively reviewed the treatment plan and discharge instructions with the patient and their family. I have addressed all patient concerns at this time. The patient and family was made aware of what symptoms to monitor for that would warrant a return to the emergency department. Discussed the plan with the patient and family, they demonstrate verbal understanding and agreement with our assessment and plan at this time. The documentation in this chart was dictated using [employer] dictation software. Please excuse any dictation errors. FINDINGS: Single AP portable view. Heart size is upper normal. The mediastinum is not widened. Large right pleural effusion again noted, unchanged. Also right parahilar roundish density or mass again noted. This may be cavitated Opposite-left lung is clear. Left PICC line is noted with distal tip in lower SVC HPI General Date/Time Provider Initiated Documentation: 05/29/23 11:41. HPI Narrative: 57-year-old female no past medical history of a chronic right-sided pleural effusion, chronic ascites, congestive heart failure, atrial fibrillation, chronic kidney disease, who presents today for runny nose, congestion mild cough. Patient gets her pleural effusion regularly drained. Last time was about 2 weeks ago. She states that about 24 to 48 hours ago she developed runny nose congestion mild cough. She does have small children at home who go to daycare who have had similar symptoms. She denies any fever. No other complaints at this time. No other modifying factors. She denies any new chest pain. She denies any significant shortness of breath. Related Data Home Medications Medication Instructions Recorded Confirmed nitroglycerin 0.4 mg sublingual 0.4 mg sublingual Q5M PRN 04/05/21 05/29/23 tablet (Nitrostat) lactulose 20 gram/30 mL oral 30 ml PO DAILY PRN 07/29/21 05/29/23 solution acetaminophen 500 mg tablet 1,000 mg PO Q6H PRN 10/05/21 05/29/23 rifaximin 550 mg tablet (Xifaxan) 550 mg PO BID 11/16/21 05/29/23 acetaminophen 325 mg capsule 650 mg PO .BID PRN 12/19/22 05/29/23 hydrocortisone 2.5 % topical cream See Rx Instructions .Route 01/23/23 05/29/23 with perineal applicator .COMPLEX #30 grams gabapentin 100 mg capsule 100 mg PO TID PRN 05/23/23 05/29/23 (Neurontin) magnesium oxide 400 mg PO DAILY 05/23/23 05/29/23 metoprolol tartrate 50 mg tablet 50 mg PO TID 05/23/23 05/29/23 spironolactone 50 mg tablet 100 mg PO BID 05/23/23 05/29/23 torsemide 20 mg tablet 100 mg PO DAILY 05/23/23 05/29/23 azithromycin 250 mg tablet See Rx Instructions PO .COMPLEX #6 05/29/23 tabs Previous Rx's Medication Instructions Recorded hydrocortisone 2.5 % topical cream See Rx Instructions .Route 01/23/23 with perineal applicator .COMPLEX #30 grams azithromycin 250 mg tablet See Rx Instructions PO .COMPLEX #6 05/29/23 tabs Allergies Allergy/AdvReac Type Severity Reaction Status Date / Time amphetamine aspartate Allergy Severe Facial Verified 05/29/23 11:48 [From Adderall] Swelling, Blisters, Tongue Swelling, Rash, amphetamine sulfate Allergy Severe Facial Verified 05/29/23 11:48 [From Adderall] Swelling, Blisters, Tongue Swelling, Rash, dextroamphetamine saccharate Allergy Severe Facial Verified 05/29/23 11:48 [From Adderall] Swelling, Blisters, Tongue Swelling, Rash, dextroamphetamine sulfate Allergy Severe Facial Verified 05/29/23 11:48 [From Adderall] Swelling, Blisters, Tongue Swelling, Rash, Penicillins Allergy Intermediate Hives, Verified 05/29/23 11:48 Rash, Tongue Swelling codeine AdvReac Mild Constipatio Verified 05/29/23 11:48 n General Stated Complaint: RespSymp JOE: 3 Review of Systems All systems reviewed & are unremarkable except as noted in HPI and below PFSH All Active Problems (Updated 05/29/23 @ 12:26 by Emil Costa DO) URI (upper respiratory infection) (Acute) Pleural effusion (Acute) Ascites due to alcoholic cirrhosis (Acute) Muscle tension pain (Acute) 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 Lindsey Hypomagnesemia (Acute) Acute on chronic renal failure (Acute) Tense ascites (Acute) Hypertension (Chronic ~02/2022) 03/17/22 [facility] – [place] Card[facility] Other ascites (Acute ~01/2022) 02/09/22 [facility] – [place] [facility], weekly thoracentesis PAF (paroxysmal atrial fibrillation) (Acute) 02/09/22 [facility] – [place] [place] [facility], ZIO Patch placed Chronic heart failure with preserved ejection fraction (Acute) 02/09/22 [facility] – [place] [place] [facility] Encephalopathy chronic (Chronic) Hepatic - K76.82 Congestive heart failure (Acute 04/22/13) Pleural effusion (Acute 04/22/13) History of gallstones (Active) Depressive disorder (Active) Anxiety (Active) Adult attention deficit hyperactivity disorder (Active) Constipation (Active) Irritable colon (Active) Smoking history (Active) History of surgery (Active) Uterine ablation approxinmately 2006 Two sections. Chronic hepatitis C (Chronic) Treated and cured, relapsed 02/2021 completed 24 wks Harvoni and ribavirin per note 05/05/22 CKD (chronic kidney disease) stage 4, GFR 15-29 ml/min (Acute) Atrial fibrillation with controlled ventricular rate (Acute) Advanced hepatic cirrhosis (Chronic) Hep C & ETOH Nephrotic syndrome (Acute) Hypokalemia (Acute) Cirrhosis of liver with ascites (Acute) 11/10/21 Telehealth [facility] – [place] [facility] Peritoneovenous shunt 12/15/22 Hypokalemia due to excessive renal loss of potassium (Acute) Hydrothorax (Acute) 03/31/21 [facility] [place] [facility] 02/09/22 [facility] – [place] [place] [facility] Seasonal allergic rhinitis (Acute) 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) (Acute) Per [facility] [place] [place] [facility] note from 05/11/21 Medical History Anxiety Attention deficit hyperactivity disorder, combined type 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 History of abdominal paracentesis Irritable colon Lactic acidosis Palliative care encounter Renal failure syndrome SBP (spontaneous bacterial peritonitis) Shock SVT (supraventricular tachycardia) Surgical History section x2 History of ileal conduit History of thoracentesis (~12/28/21) 08/03/20,08/10/20 08/21/20,08/31/20 Hx of tubal ligation S/P abdominal paracentesis (~12/28/21) Family History Mother Hypertensive disorder, systemic arterial Cancer Cervical Father Hypertensive disorder, systemic arterial Maternal Grandfather Diabetes Maternal Grandmother Cancer Ovarian Other Cirrhosis due to hemochromatosis Social History Smoking/Tobacco Use Status: Former Tobacco Use Quit Date: 09/18/18 Smoking risk assessment performed?: Yes Alcohol Intake: former Drug use: Never Substance use type: does not use Adopted: No Caregiver/Support person: No Foster care: No Household members: family Housing: house Number of Children: 4 number of grandchildren: 2 Communication Needs: None Do you need help understanding health information?: Often current occupation: Used to work for [employer] Current gender identity: female What is your relationship status?: How often do you talk on the phone with friends or family?: three or more times per week Panel score (0-1 are the most socially isolated patients): 2 What type of physical activity do you participate in: none Seatbelt use: always Drive intox or ride w/intox motorcoach driver: No Working smoke detector in home: Yes Fire extinguisher in home: Yes Carbon monox detector in home: Yes Do you feel safe at home: Yes Do you feel safe in your relationship?: Yes Exam Narrative Exam Narrative: 1.Const: Well-nourished, Well-developed, appearing stated age 2.Eyes: PERRL, no conjunctival injection, and symmetrical lids. 3.ENT: Atraumatic external nose and ears. Moist MM. Neck: Symmetric, trachea midline, No thyromegaly. 4.CVS: +S1/S2, No murmurs or gallops. Peripheral pulses 2+ and equal in all extremities. Brisk capillary refill in all extremities. 5.RESP: Unlabored respiratory effort. Mild rhonchorous breath sounds throughout. No wheezes or rales. 6.GI: Soft, Nontender/Nondistended, No hepatosplenomegaly. No guarding or rebound. 7.MSK: Normocephalic/Atraumatic, Extremities w/o deformity or ttp No cyanosis or clubbing, Normal movement of all extremities 8.Skin: Warm, Dry. No rashes or lesions. 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 Sensation grossly intact, no focal neurologic deficits. 10.Psych: (AAO) x3. Appropriate mood and affect Course Vital Signs Vital signs: Vital Signs Temperature 36.2 C L 05/29/23 11:22 Pulse 66 05/29/23 11:22 Respiratory Rate 18 05/29/23 11:22 Blood Pressure 108/71 05/29/23 11:22 Pulse Oximetry 100 05/29/23 11:22 Temperature 36.2 C L 05/29/23 11:22 Temperature Source Skin 05/29/23 11:22 Pulse 66 05/29/23 11:22 Respiratory Rate 18 05/29/23 11:22 Respiratory Effort Short of Breath 05/29/23 11:43 Blood Pressure 108/71 05/29/23 11:22 Blood Pressure Position Sitting 05/29/23 11:22 Pulse Oximetry 100 05/29/23 11:22 Oxygen Delivery Method Room Air 05/29/23 11:22 Oxygen Flow Rate 0 05/29/23 11:22 Pain Level 8 05/29/23 11:22 Comment not taking anything for symptoms 05/29/23 11:22
== END 2023-05-29 12:37 | disposition home or self-care (01) ==
PROVIDERS: Emergency Provider Student in an Organized Health Care Education/Training Program; PCP Family Medicine
DX: J06.9 Acute upper respiratory infection, unspecified (principal); R07.9 Chest pain, unspecified
CPT/HCPCS: 87426; 93005; 99284; 71045; 93010